=== PATIENT | female | born 1945 | race Caucasian/White ===

== ENCOUNTER 2023-12-14 15:59 | Outpatient (REF) | payer MEDICARE, SELFPAY ==
[2023-12-14 17:27] LABS: COMMENT (LAB VIEW ONLY) 93.79 mg/dL; Microalb ug/mg Crea 27.3 ug/mg Cr
[2023-12-14 18:15] LABS: Anion Gap 5.7 mmol/L (3-11); BUN 17 mg/dL (7-18); CO2 27.3 mmol/L (21.0-32.0); CREATININE 1.2 mg/dL (0.55-1.02); Calcium 8.7 mg/dL (8.5-10.1); Calculated LDL 104 mg/dL (<100); Chloride 105 mmol/L (98-107); Cholesterol 194 mg/dL (<200); Estimated GFR 46.33 (mL/min/1.73m2); Glucose 270 mg/dL (74-106); HDL Cholesterol 78 mg/dL (40-60); Magnesium 1.7 mg/dL (1.8-2.4); Potassium 4.5 mmol/L (3.5-5.1); Sodium 138 mmol/L (136-145); Triglyceride 62 mg/dL (<150)
== END 2023-12-14 16:00 | disposition home or self-care (01) ==
LOC: NCHCN 15:59
PROVIDERS: Visit Provider Student in an Organized Health Care Education/Training Program
DX: E11.9 Type 2 diabetes mellitus without complications (principal)
CPT/HCPCS: 80048; 80061; 82043; 82570; 83735

== ENCOUNTER 2023-12-21 13:36 | Emergency (ER) | payer MEDICARE, MEDICAID, SELFPAY ==
--- NOTE | 2023-12-21 13:30 | RT.EKG_ITS ---
APPROVED REPORT Exam: Resting ECG Reason for Exam: sob Patient Location: E HR:80 bpm ECG Measurements Heart Rate 80 AXIS AK 240 P [id number] QRSd 86 QRS -36 QT 401 T 42 QTc 463 Conclusion Atrial-paced complexes...other complexes also detected Prolonged AK interval...AK >220, V-rate 50- 90 Inferior infarct, old...Q >35mS, II III aVF Anterior infarct, old...Q >40mS, abnormal ST-T, V2-V5
[2023-12-21 13:37] VITALS: BP 146/34; PULSE 80; RESP 20; TEMP 36.6; O2SAT 98
[2023-12-21 13:49] VITALS: O2SAT 96
--- NOTE | 2023-12-21 14:03 | DI.RAD_ITS ---
Exam(s) XR CHEST 2V PA LATERAL EXAM: XR CHEST 2V PA LATERAL CLINICAL HISTORY: cough TECHNIQUE: 2D digital imaging was performed. Two views. COMPARISON: No exams were available for comparison FINDINGS: Exam is limited by poor pulmonary inflation and under penetration. HEART: Enlarged. Pacemaker. Aorta: Proximal aortic stent. PULMONARY VASCULATURE: Normal. MEDIASTINUM: Unremarkable. LUNGS: No gross evidence of a focal infiltrate. Pulmonary vascular prominence and increased intersti tial markings may indicate CHF. Findings may also be secondary to poor pulmonary inflation. PLEURAL SPACE: No pleural effusion or pneumothorax. BONE:Unremarkable for age. SOFT TISSUES: Unremarkable. IMPRESSION: Question CHF. DATA REPOSITORY: RADIATION DOSE DELIVERED:
--- NOTE | 2023-12-21 14:05 | ED.GENADUL_ITS ---
Discharge Plan Disposition Patient Disposition: Home Condition: Stable Discharge Details Clinical Impression: Cough, URI (upper respiratory infection), CHF (congestive heart failure) Primary Care Provider: Unknown,Unknown ED Provider: bAad Sales Home Meds and New Rx's Prescriptions: New prednisone 20 mg tablet 60 mg PO DAILY 4 Days Qty: 12 0RF levofloxacin 750 mg tablet 750 mg PO DAILY Qty: 5 0RF Continued albuterol sulfate 90 mcg/actuation HFA aerosol inhaler 2 puff inhalation Q6H PRN atorvastatin 80 mg tablet 80 mg PO DAILY duloxetine 30 mg capsule,delayed release(DR/EC) 30 mg PO DAILY Eliquis 5 mg tablet 5 mg PO BID famotidine 20 mg tablet 20 mg PO DAILY furosemide 40 mg tablet 40 mg PO DAILY glipizide 5 mg tablet 5 mg PO DAILY insulin glargine [Lantus Solostar U-100 Insulin] 100 unit/mL (3 mL) insulin pen 66 unit subcut QPM lisinopril 2.5 mg tablet 2.5 mg PO DAILY Lumigan 0.01 % drops 1 drp ophthalmic (eye) QPM metoprolol tartrate 25 mg tablet 25 mg PO BID insulin aspart U-100 [Novolog FlexPen U-100 Insulin] 100 unit/mL (3 mL) insulin pen 10 unit subcut TID Stiolto Respimat 2.5-2.5 mcg/actuation mist 2 puff inhalation DAILY trazodone 50 mg tablet 50 mg PO DAILY Discharge Instructions Additional Instructions: I would recommend increasing your Lasix to 80 mg daily for a week. Follow-up with your primary care provider within 1 week especially if symptoms continue If you feel more ill, have severe worsening shortness of breath or severe chest pain return to the emergency department for reevaluation HPI General Mode of arrival: EMS . Date/Time Provider Initiated Documentation: 12/21/23 13:53 . Limitations to Documentation: no limitations . Information obtained by: patient . History of Present Illness 78 year old F presents to the emergency department with the chief complaint of cough, described as moderate, Patient started experiencing this day(s) (3) and it has been constant. No relieving factors improve symptom(s), No exacerbating factors reported . Patient notes denies chest pain and shortness of breath. Patient did receive the following treatments prior to arrival, none Related Data Home Medications ?Medication ?Instructions ?Recorded ?Confirmed albuterol sulfate 90 mcg/actuation 2 puff inhalation Q6H PRN 12/19/23 aerosol inhaler apixaban 5 mg tablet (Eliquis) 5 mg PO BID 12/19/23 atorvastatin 80 mg tablet 80 mg PO DAILY 12/19/23 bimatoprost 0.01 % eye drops 1 drp ophthalmic (eye) QPM 12/19/23 (Magdalena) duloxetine 30 mg capsule,delayed 30 mg PO DAILY 12/19/23 release famotidine 20 mg tablet 20 mg PO DAILY 12/19/23 furosemide 40 mg tablet 40 mg PO DAILY 12/19/23 glipizide 5 mg tablet 5 mg PO DAILY 12/19/23 insulin aspart U-100 100 unit/mL 10 unit subcut TID 12/19/23 (3 mL) subcutaneous pen (Novolog FlexPen U-100 Insulin aspart) insulin glargine 100 unit/mL (3 66 unit subcut QPM 12/19/23 mL) subcutaneous pen (Lantus Solostar U-100 Insulin) lisinopril 2.5 mg tablet 2.5 mg PO DAILY 12/19/23 metoprolol tartrate 25 mg tablet 25 mg PO BID 12/19/23 tiotropium 2.5 mcg-olodaterol 2.5 2 puff inhalation DAILY 12/19/23 mcg/actuation mist for inhalation (Stiolto Respimat) trazodone 50 mg tablet 50 mg PO DAILY 12/19/23 levofloxacin 750 mg tablet 750 mg PO DAILY #5 tabs 12/21/23 prednisone 20 mg tablet 60 mg (3 x 20 mg) PO DAILY 4 days 12/21/23 #12 tabs Previous Rx's ?Medication ?Instructions ?Recorded levofloxacin 750 mg tablet 750 mg PO DAILY #5 tabs 12/21/23 prednisone 20 mg tablet 60 mg (3 x 20 mg) PO DAILY 4 days 12/21/23 #12 tabs Allergies Allergy/AdvReac Type Severity Reaction Status Date / Time gabapentin Allergy Unknown Unverified 12/21/23 13:50 pantoprazole Allergy Unknown Unverified 12/21/23 13:50 semaglutide (From Ozempic) Allergy Unknown Unverified 12/21/23 13:50 General Stated Complaint: RespSymp ZARIA: 3 Review of Systems All systems reviewed & are unremarkable except as noted in HPI and below Constitutional Constitutional: Denies chills, Denies fever(s) and Denies weakness Cardiovascular Cardiovascular: Denies chest pain Respiratory Respiratory: Reports cough Gastrointestinal Gastrointestinal: Denies abdominal pain, Denies nausea and Denies vomiting Neurologic Neurologic: Denies weakness Exam Const General: no acute distress Orientation: alert [facility] Head: normal to inspection Ears: external ears normal General nose exam: external nose normal Mouth: moist mucous membranes Eyes General: appearance normal, both eyes and all related structures Neck Neck: normal visual inspection Resp Effort & Inspection: normal respiratory effort and able to speak in complete se ntences Auscultation: wheezes Cardio Jugular venous pressure: no JVD Rate: regular rate Heart Sounds: no murmurs Skin General skin exam: no rashes or lesions noted Neuro General: patient alert and patient oriented x3 Extrem General: normal to inspection Psych Mental Status: mental status grossly normal Course Vital Signs Vital signs: Vital Signs Temperature 36.6 C 12/21/23 13:37 Pulse 80 12/21/23 13:37 Respiratory Rate 20 12/21/23 13:37 Blood Pressure 146/34 H 12/21/23 13:37 Pulse Oximetry 98 12/21/23 13:37 Temperature 36.6 C 12/21/23 13:37 Temperature Source Temporal Artery Scan 12/21/23 13:37 Pulse 80 12/21/23 13:37 Respiratory Rate 20 12/21/23 13:37 Blood Pressure 146/34 H 12/21/23 13:37 Pulse Oximetry 96 12/21/23 13:49 Oxygen Delivery Method Nasal Cannula 12/21/23 13:49 Oxygen Flow Rate 2 12/21/23 13:49 Pain Level 0 12/21/23 13:37 Medical Decision Making 78-year-old female who states she has a history of asthma and COPD comes in with 3 days of productive cough. She denies any fevers, chest pain, difficulty br eathing. She apparently went to urgent care and they noted her room air sats were in the 80s so they called EMS who gave her breathing treatment and on arrival here she states feels better. She is currently 94% on room air. She denies any chest pain or difficulty breathing. She does have wheezing in both lungs of both upper and lower lobes. She has no JVD, no leg swelling or calf tenderness. I suspect you have a COPD exacerbation first asthma exacerbation, will check CBC, CMP, Fluvid and procalcitonin and obtain chest x-ray and giveSolu-Medrol and DuoNeb and reassess.Shows no findings on exam to suggest DVT and her lung exam findings are consistent with asthma or COPD so doubt PE. She has no chest pain or chest pressure so doubt ACS Labs show increased proBNP, this is mild CHF on her x-ray and is on Lasix states she has not missed any doses. Suspect she has a mixed picture of CHF and COPD. She is hemodynamically stable when she is asleep she is a percent but when I wake her up she is in the mid to low 90s. She has no respiratory distress and lungs are clear currently. Discussed disposition options including observation admission versus trial of outpatient management but she prefers outpatient management which I feel is reasonable. Will place her on a course of prednisone and levofloxacin as well as have her increase her Lasix for a week. She will follow-up with her PCP and return precautions given Differential Diagnosis Differential Diagnosis: uri, covid, pneumonia Lab Data Lab results reviewed: Yes I reviewed the patient's lab results. ECG Data Attestation: I personally reviewed and interpreted this ECG (s) as follows: Prior ECG tracings: not available for review Interpretation: motion artifact, sinus rate of 80 no stemi Quality:SDOH Health Related Social Needs: No Data to Display PFSH All Active Problems (Updated 12/21/23 @ 15:54 by Abad Sales MD) CHF (congestive heart failure) (Chronic) URI (upper respiratory infection) (Acute) Cough (Acute) Medical History (Updated 12/21/23 @ 15:54 by Abad Sales MD) HTN (hypertension) Contusion of toe, left Dermal mycosis Thyroid nodule Diabetic peripheral neuropathy Vitamin D deficiency Hyperparathyroidism HLD (hyperlipidemia) Obesity Anemia Leukocytosis Depressive disorder GERD (gastroesophageal reflux disease) Cellulitis Stress incontinence Afib Diabetes Cardiac pacemaker in situ Anxiety Surgical History (Updated 12/19/23 @ 14:47 by Kavita Walls) S/P AVR Hx of CABG Social History Smoking risk assessment performed?: No
[2023-12-21 14:26] LABS: Abs Immature Grans 0.05 10^3/uL (0.0-0.06); Absolute Basophil Count 0.06 10^3/uL (0.0-0.2); Absolute Eosinophil Count 0.39 10^3/uL (0.0-0.7); Absolute Lymphocyte Count 2.43 10^3/uL (1.2-3.4); Basophils % 0.5 %; Eosinophils % 3.1 %; HCT 38.3 % (36.0-46.0); HGB 12.1 g/dL (11.2-15.7); Immature Grans % 0.4 %; Lymphocytes % 19.4 %; MCH 30.9 pg (27.0-33.0); MCHC 31.6 % (32.0-36.0); MCV 98 fL (80-95); MPV 12.3 fL (8.0-11.0); Monocytes % 9.3 %; Neutrophils % 67.3 %; Platelet Count 211 10^3/uL (130-400); RBC 3.92 10^6/uL (3.93-5.22); RDW 14.1 % (11.7-14.6); WBC 12.54 10^3/uL (4.4-10.8)
[2023-12-21 14:29] LABS: Absolute Monocyte Count 1.17 10^3/uL (0.1-0.8); Absolute Neutrophil Count 8.44 10^3/uL (1.2-6.7)
[2023-12-21 14:30] VITALS: RESP 5; RESP 6; RESP 8; O2SAT 89
[2023-12-21] MEDS: Albuterol/Ipratropium 3 ML UPD VIAL UPD (14:30)
[2023-12-21] MEDS: methylPREDNISolone SUCC 125 MG VIAL IVP (14:31)
[2023-12-21 14:57] LABS: COVID-19 PCR Negative (Negative); Influenza A PCR Negative (Negative); Influenza B PCR Negative (Negative); RSV PCR Negative (Negative)
[2023-12-21 14:58] LABS: Procalcitonin < 0.1 ng/mL
[2023-12-21 14:59] LABS: Source Nasopharynx
[2023-12-21 15:17] LABS: ALT 22 U/L (14-59); AST 16 U/L (15-37); Albumin 3.3 g/dL (3.4-5.0); Alkaline Phosphatase 93 U/L (46-116); Anion Gap 5.4 mmol/L (3-11); BUN 17 mg/dL (7-18); Bilirubin, Total 0.55 mg/dL (0.2-1.0); CO2 30.6 mmol/L (21.0-32.0); CREATININE 1.3 mg/dL (0.55-1.02); Calcium 9.4 mg/dL (8.5-10.1); Chloride 103 mmol/L (98-107); Estimated GFR 42.09 (mL/min/1.73m2); Glucose 301 mg/dL (74-106); Magnesium 1.6 mg/dL (1.8-2.4); NT-proBNP 1206 pg/mL (<300); Potassium 4.2 mmol/L (3.5-5.1); Sodium 139 mmol/L (136-145); TSH (W/Ref FT4) 1.83 uIU/mL (0.36-3.74); Total Protein 7.5 g/dL (6.4-8.2)
[2023-12-21] MEDS: levoFLOXacin 500 MG, levoFLOXacin 250 MG 750 MG PO (16:20)
[2023-12-21] MEDS: Furosemide 20 MG TAB 40 MG PO (16:20)
[2023-12-21 16:30] VITALS: BP 146/34; PULSE 80; RESP 20; TEMP 36.6; O2SAT 89
[2023-12-21 16:49] VITALS: BP 150/52; PULSE 82; TEMP 36; O2SAT 90
== END 2023-12-21 16:43 | disposition home or self-care (01) ==
PROVIDERS: Emergency Provider Emergency Medicine
DX: J06.9 Acute upper respiratory infection, unspecified (principal); I11.0 Hypertensive heart disease with heart failure; I50.9 Heart failure, unspecified; E11.40 Type 2 diabetes mellitus with diabetic neuropathy, unspecified; E78.5 Hyperlipidemia, unspecified; I48.91 Unspecified atrial fibrillation; R94.31 Abnormal electrocardiogram [ECG] [EKG]; Z95.0 Presence of cardiac pacemaker; Z95.1 Presence of aortocoronary bypass graft; Z79.899 Other long term (current) drug therapy
CPT/HCPCS: 36415; 80053; 84145; 87637; 93005; 94640; 96374; 99285; 71046; 83735; 83880; 84443; 85025; 93010; 99284; J2919; J7620

== ENCOUNTER → 2024-04-09 09:59 | Outpatient (BNVA) | payer MEDICARE, SELFPAY | PROVIDERS: PCP Student in an Organized Health Care Education/Training Program; Referring Provider Student in an Organized Health Care Education/Training Program; Visit Provider Physician Assistant Surgical | DX: J45.909 Unspecified asthma, uncomplicated (principal); J44.9 Chronic obstructive pulmonary disease, unspecified; R09.02 Hypoxemia | CPT/HCPCS: 99215 ==

== ENCOUNTER 2024-04-10 16:31 | Inpatient (IN) | payer MEDICARE, MEDICAID, SELFPAY ==
[2024-04-10] VITALS (66 sets, daily range): BP systolic 104–169; BP diastolic 55–156; PULSE 76–155; RESP 13–30; TEMP 36.6–36.7; O2SAT 88–97
--- NOTE | 2024-04-10 16:15 | RT.EKG_ITS ---
APPROVED REPORT Exam: Resting ECG Reason for Exam: weak, afib Patient Location: E HR:140 bpm ECG Measurements Heart Rate 140 AXIS AL [id number] P [id number] QRSd 81 QRS 45 QT 307 T 63 QTc 470 Conclusion Atrial fibrillation...? atrial activity Low voltage, precordial leads...precordial leads <1.0mV Probable anterolateral infarct, old...Q>35mS, abnrm ST-T, V2-V6,I,aVL no ST segment or T wave abnormalities to suggest occlusive MS
--- NOTE | 2024-04-10 16:45 | DI.CT_ITS ---
Exam(s) CT HEAD WO EXAM: CT HEAD WO CLINICAL HISTORY: fall 2 days ago, hit head, on AC. TECHNIQUE: Imaging Protocol: Axial computed tomography images with coronal and sagittal reformatted images were created and reviewed COMPARISON: No exams were available for comparison FINDINGS: There are no skull fractures. There are surgical defects in the medial parish of both maxillary sinuse s but no significant mucosal thickening nor fluid within the partially visualized maxillary sinuses. There is opacification of ethmoidal air cells posteriorly on the left side. Other paranasal sinuses including the frontal sinuses are clear and the mastoid air cells reveal no obvious effusions. There is no evidence of intracranial hemorrhage, mass effect, or shift of midline structures. There are no extra-axial fluid collections. The ventricles are not enlarged or shifted and there is no blo od within the ventricular system nor within the basal cisterns. There is symmetrical involutional change consistent with this patient's advanced age. IMPRESSION: No acute intracranial findings on this noninfused CT scan of the brain. Called by myself to ER 04/10/2024 at 7:15 p.m. RADIATION DOSE DELIVERED: 831.24mGy.cm Total DLP DATA REPOSITORY: All CT scans at this facility are submitted to the National Radiology Data Registry (NRDR) Dose Index Registry (DIR) with the [employer] ([employer]). RADIATION OPTIMIZATION: All CT scans at this facility use at least one of these dose optimization te chniques: automated exposure control; mA and/or kV adjustment per patient size (includes targeted exa ms where dose is matched to clinical indication); or iterative reconstruction.
--- NOTE | 2024-04-10 16:53 | DI.RAD_ITS ---
Exam(s) XR CHEST 2V PA LATERAL EXAM: XR CHEST 2V PA LATERAL CLINICAL HISTORY: SOB. TECHNIQUE: 2D digital imaging was performed. COMPARISON: CR XR CHEST 2V PA LATERAL from 12/21/2023 FINDINGS: 2 views: Bipolar left subclavian pacemaker again noted with lead tips in RA and right ventricle, unchanged There is mild cardiomegaly. The mediastinum is not widened. Pulmonary venous hypertension pattern., bordering on interstitial pulmonary edema. There is no airsp corwin pulmonary edema. Small bilateral pleural effusions evident on the lateral view. IMPRESSION: Mild cardiomegaly. Bipolar pacemaker. Pulmonary venous hypertension pattern; possible early pulmona ry edema. DATA REPOSITORY: RADIATION DOSE DELIVERED:
[2024-04-10 18:02] LABS: Lactate 1.2 mmol/L (0.6-1.4)
[2024-04-10 18:04] LABS: Abs Immature Grans 0.02 10^3/uL (0.0-0.06); Absolute Basophil Count 0.05 10^3/uL (0.0-0.2); Absolute Eosinophil Count 0.49 10^3/uL (0.0-0.7); Absolute Lymphocyte Count 2.01 10^3/uL (1.2-3.4); Absolute Monocyte Count 0.67 10^3/uL (0.1-0.8); Absolute Neutrophil Count 7.37 10^3/uL (1.2-6.7); Basophils % 0.5 %; Eosinophils % 4.6 %; HCT 32.9 % (36.0-46.0); Immature Grans % 0.2 %; Lymphocytes % 18.9 %; MCH 31.5 pg (27.0-33.0); MCHC 33.4 % (32.0-36.0); MCV 94 fL (80-95); MPV 12.2 fL (8.0-11.0); Monocytes % 6.3 %; Neutrophils % 69.5 %; Platelet Count 219 10^3/uL (130-400); RBC 3.49 10^6/uL (3.93-5.22); RDW 13.6 % (11.7-14.6); RDW-SD 46.8 fL; WBC 10.61 10^3/uL (4.4-10.8)
--- NOTE | 2024-04-10 18:25 | ED.GENADUL_ITS ---
Discharge Plan Disposition Patient Disposition: Admit to [facility] Condition: Serious Discharge Details Chief Complaint: SOB Clinical Impression: Atrial fibrillation with rapid ventricular response, New onset a-fib, CHF (congestive heart failure) Admit Date/Time: 04/10/24 22:53 Admit Provider: Abel Guillory Attending Provider: Abel Guillory Primary Care Provider: Zeus Hebert ED Provider: Lauren Baez General Mode of arrival: ambulatory . Date/Time Provider Initiated Documentation: 04/10/24 16:39 . Limitations to Documentation: no limitations . Information obtained by: patient . HPI Narrative: 78yo F with hx HTN, COPD not on oxygen, T2DM, hx AVR & CABG, presenting for generalized weakness and palpitations. Reports that for the past 2 days has had palpitations, feeling like her heart is racing. Shortness of breath seems slightly worse than normal. No chest pain or lightheadeness. Does feel generally weak. At baseline transfers to and from wheelchair, does not ambulate. Earlier this week fell when transferring, grazed her face on the chair on the way down. Denies significant head strike. Otherwise in her usual state of health with no fevers, chills, rash, cough, nausea, vomiting, abdominal pain, numbness, tingling, focal weakness, LE edema, dysuria, hematuria, or other concerns. Related Data Home Medications ?Medication ?Instructions ?Recorded ?Confirmed apixaban 5 mg tablet (Eliquis) 5 mg PO BID 12/19/23 04/10/24 atorvastatin 80 mg tablet 80 mg PO DAILY 12/19/23 04/10/24 bimatoprost 0.01 % eye drops 1 drp ophthalmic (eye) QPM 12/19/23 04/10/24 (Magdalena) duloxetine 30 mg capsule,delayed 30 mg PO DAILY 12/19/23 04/10/24 release famotidine 20 mg tablet 20 mg PO DAILY 12/19/23 04/10/24 glipizide 5 mg tablet 5 mg PO DAILY 12/19/23 04/10/24 insulin aspart U-100 100 unit/mL 10 unit subcut TID 12/19/23 04/10/24 (3 mL) subcutaneous pen (Novolog FlexPen U-100 Insulin aspart) insulin glargine 100 unit/mL (3 66 unit subcut QPM 12/19/23 04/10/24 mL) subcutaneous pen (Lantus Solostar U-100 Insulin) lisinopril 2.5 mg tablet 2.5 mg PO DAILY 12/19/23 04/10/24 metoprolol tartrate 25 mg tablet 25 mg PO BID 12/19/23 04/10/24 tiotropium 2.5 mcg-olodaterol 2.5 2 puff inhalation DAILY 12/19/23 04/10/24 mcg/actuation mist for inhalation (Stiolto Respimat) trazodone 50 mg tablet 50 mg PO DAILY 12/19/23 04/10/24 bimatoprost 0.01 % eye drops 1 drp ophthalmic (eye) QPM 02/26/24 04/10/24 (Lumigan) albuterol sulfate 90 mcg/actuation 2 puff inhalation Q6H PRN 04/09/24 04/10/24 aerosol inhaler shortness of breath or wheezing #8.5 grams furosemide 40 mg tablet 60 mg PO DAILY 04/09/24 04/10/24 sucralfate 1 gram tablet 1 g PO QID 04/09/24 04/10/24 Previous Rx's ?Medication ?Instructions ?Recorded albuterol sulfate 90 mcg/actuation 2 puff inhalation Q6H PRN 04/09/24 aerosol inhaler shortness of breath or wheezing #8.5 grams Allergies Allergy/AdvReac Type Severity Reaction Status Date / Time gabapentin Allergy Unknown Unverified 04/10/24 22:45 pantoprazole Allergy Unknown Unverified 04/10/24 22:45 semaglutide (From Ozempic) Allergy Unknown Unverified 04/10/24 22:45 General Stated Complaint: SOB ZARIA: 3 Review of Systems Narrative: see HPI Exam Narrative Exam Narrative: General: Alert, non-toxic, well nourished, in no acute distress. Head: Normocephalic, abrasion to nose otherwise atraumatic Neck: Trachea midline, ?Neck supple. ENT: ?MMM.? No oropharygeal lesions or exudate. Cardiac: ?Irregular, tachycardiac, no murmurs appreciated Resp: No respiratory distress. CTAB. Abd: ?Soft, non-distended, nontender : ?No suprapubic tenderness. Extremities: ?No deformities.? No peripheral edema. Neurologic: GCS 15. ? Moves all extremities freely against gravity Course Vital Signs Vital signs: Vital Signs Pulse Oximetry 94 04/10/24 16:35 Temperature 36.6 C 04/10/24 16:36 Pulse 76 04/10/24 16:40 Pulse 152 H 04/10/24 18:10 Respiratory Rate 27 H 04/10/24 18:10 Respiratory Effort Normal 04/10/24 18:02 Respiratory Depth Normal 04/10/24 18:02 Respiratory Pattern Normal 04/10/24 18:02 Blood Pressure 169/156 H 04/10/24 16:40 Blood Pressure Mean 159 04/10/24 16:40 Pulse Oximetry 94 04/10/24 18:10 Oxygen Delivery Method Room Air 04/10/24 18:02 Oxygen Flow Rate 0 04/10/24 18:02 Pain Level 0 04/10/24 16:36 Lab/Test Results Lab/Test Results: Laboratory Tests Range/Units 04/10/24 17:56 WBC (4.4-10.8) 10^3/uL 10.61 RBC (3.93-5.22) 10^6/uL 3.49 L Hgb (11.2-15.7) g/dL 11.0 L Hct (36.0-46.0) % 32.9 L MCV (80-95) fL 94 MCH (27.0-33.0) pg 31.5 MCHC (32.0-36.0) % 33.4 RDW (11.7-14.6) % 13.6 Plt Count (130-400) 10^3/uL 219 MPV (8.0-11.0) fL 12.2 H Immature Gran % % 0.2 Neutrophils % % 69.5 Lymphocytes % % 18.9 Monocytes % % 6.3 Eosinophils % % 4.6 Basophils % % 0.5 Nucleated RBC % (0.0-0.3) % 0.0 Absolute Neutrophils (1.2-6.7) 10^3/uL 7.37 H Absolute Lymphocytes (1.2-3.4) 10^3/uL 2.01 Absolute Monocytes (0.1-0.8) 10^3/uL 0.67 Absolute Eosinophils (0.0-0.7) 10^3/uL 0.49 Absolute Basophils (0.0-0.2) 10^3/uL 0.05 VBG Lactate (0.6-1.4) mmol/L 1.2 Medical Decision Making 78yo F with hx HTN, COPD not on oxygen, T2DM, hx AVR & CABG, presenting for generalized weakness and palpitations. Reports that for the past 2 days has had palpitations, feeling like her heart is racing and sortness of breath seems slightly worse than normal. Mildly hypertensive and tachcyardiac on arrival, afebrile with normal O2 sat. Irregular HR on exam, lungs CTAB with no increased WOB but is dyspneic with minimal exertion (i.e. sitting up in bed). -EKG with new onset afib rate ~140, no ST segment or T wave abnormalities to suggest occlusive AL -Labs reviewed as below, CBC with no leukocytosis and mild anemia (11.0), CMP with no actionable abnormalities (cr is elevated at 1.8 from baseline ~1.3), Mg slightly low at 1.7, TSH normal, troponin 18 with repeat 13 (normal, would not further pursue ACS), BNP markedly elevated at ~8000. Dimer elevated so CTA for PE ordered (less likely given pt is currently on apixiban) -CXR independently reviewed, pacemaker present and pulmonary edema on view, agree with radiology read below. -CTA independently reviewed, no large saddle embolius on my view, agree with radiology read below. No clear provoking factor for afib and does not appear to be compensatory process. Pt denies prior CHF, no echo available here for review (did have ED visit for SOB and found to have elevated BNP, suspect HF at that time). Favor CHF today, less likely COPD excerbation. Will diurese with 40mg IV lasix, pt with ~2L urine out with this. Attempted rate control with 50mg po metoprolol (pt states 25mg BID at home) without much improvement. Given 5mg IV lopressor with improvement in HR to 110's. Discuss[address] with [facility] hospitalist Dr. Guillory; pt accepted to medicine service for further workup and management. Awaiting transfer to the floor. Imaging Data Radiologic Study: Imaging: X-Ray and CT Scan Radiologist's impression: CXR: IMPRESSION: Mild cardiomegaly. Bipolar pacemaker. Pulmonary venous hypertension pattern; possible early pulmonary edema. CTA chest: IMPRESSION: Cardiomegaly and CHF with small effusions. No pulmonary embolus. Lab Data Lab results reviewed: Yes I reviewed the patient's lab results. Labs: Laboratory Tests Range/Units 04/10/24 04/10/24 04/10/24 17:56 19:27 19:54 WBC (4.4-10.8) 10^3/uL 10.61 RBC (3.93-5.22) 10^6/uL 3.49 L Hgb (11.2-15.7) g/dL 11.0 L Hct (36.0-46.0) % 32.9 L MCV (80-95) fL 94 MCH (27.0-33.0) pg 31.5 MCHC (32.0-36.0) % 33.4 RDW (11.7-14.6) % 13.6 Plt Count (130-400) 10^3/uL 219 MPV (8.0-11.0) fL 12.2 H Immature Gran % % 0.2 Neutrophils % % 69.5 Lymphocytes % % 18.9 Monocytes % % 6.3 Eosinophils % % 4.6 Basophils % % 0.5 Nucleated RBC % (0.0-0.3) % 0.0 Absolute Neutrophils (1.2-6.7) 10^3/uL 7.37 H Absolute Lymphocytes (1.2-3.4) 10^3/uL 2.01 Absolute Monocytes (0.1-0.8) 10^3/uL 0.67 Absolute Eosinophils (0.0-0.7) 10^3/uL 0.49 Absolute Basophils (0.0-0.2) 10^3/uL 0.05 PT (9.1-11.1) sec 11.3 H INR (0.9-1.1) 1.1 APTT (23.6-32.8) sec 27.8 D-Dimer (<500) ng/mlFEU 1758 H VBG Lactate (0.6-1.4) mmol/L 1.2 Sodium (136-145) mmol/L 137 Potassium (3.5-5.1) mmol/L 3.6 Chloride (98-107) mmol/L 98 Carbon Dioxide (21.0-32.0) mmol/L 29.0 Anion Gap (3-11) mmol/L 10.0 BUN (7-18) mg/dL 52 H Creatinine (0.55-1.02) mg/dL 1.8 H Est GFR (CKD-EPI 2020) (mL/min/1.73m2) 28.48 Glucose (74-106) mg/dL 157 H Calcium (8.5-10.1) mg/dL 8.8 Magnesium (1.8-2.4) mg/dL 1.7 L Total Bilirubin (0.2-1.0) mg/dL 0.78 AST (15-37) U/L 21 ALT (14-59) U/L 33 Alkaline Phosphatase (46-116) U/L 131 H Troponin I (<or=51) ng/L 18 13 Cancelled NT-Pro-B Natriuret Pep (<300) pg/mL 7834 H Total Protein (6.4-8.2) g/dL 7.6 Albumin (3.4-5.0) g/dL 3.0 L TSH (0.36-3.74) uIU/mL 2.57 COVID-19 Source SARS-CoV-2 (PCR) (Negative) Influenza Type A (PCR) (Negative) Influenza Type B (PCR) (Negative) RSV (PCR) (Negative) Range/Units 04/10/24 21:33 WBC (4.4-10.8) 10^3/uL RBC (3.93-5.22) 10^6/uL Hgb (11.2-15.7) g/dL Hct (36.0-46.0) % MCV (80-95) fL MCH (27.0-33.0) pg MCHC (32.0-36.0) % RDW (11.7-14.6) % Plt Count (130-400) 10^3/uL MPV (8.0-11.0) fL Immature Gran % % Neutrophils % % Lymphocytes % % Monocytes % % Eosinophils % % Basophils % % Nucleated RBC % (0.0-0.3) % Absolute Neutrophils (1.2-6.7) 10^3/uL Absolute Lymphocytes (1.2-3.4) 10^3/uL Absolute Monocytes (0.1-0.8) 10^3/uL Absolute Eosinophils (0.0-0.7) 10^3/uL Absolute Basophils (0.0-0.2) 10^3/uL PT (9.1-11.1) sec INR (0.9-1.1) APTT (23.6-32.8) sec D-Dimer (<500) ng/mlFEU VBG Lactate (0.6-1.4) mmol/L Sodium (136-145) mmol/L Potassium (3.5-5.1) mmol/L Chloride (98-107) mmol/L Carbon Dioxide (21.0-32.0) mmol/L Anion Gap (3-11) mmol/L BUN (7-18) mg/dL Creatinine (0.55-1.02) mg/dL Est GFR (CKD-EPI 2020) (mL/min/1.73m2) Glucose (74-106) mg/dL Calcium (8.5-10.1) mg/dL Magnesium (1.8-2.4) mg/dL Total Bilirubin (0.2-1.0) mg/dL AST (15-37) U/L ALT (14-59) U/L Alkaline Phosphatase (46-116) U/L Troponin I (<or=51) ng/L NT-Pro-B Natriuret Pep (<300) pg/mL Total Protein (6.4-8.2) g/dL Albumin (3.4-5.0) g/dL TSH (0.36-3.74) uIU/mL COVID-19 Source Nasopharynx SARS-CoV-2 (PCR) (Negative) Negative Influenza Type A (PCR) (Negative) Negative Influenza Type B (PCR) (Negative) Negative RSV (PCR) (Negative) Negative Quality:SDOH Health Related Social Needs: No Data to Display PFSH All Active Problems (Updated 04/10/24 @ 23:37 by Lauren Baez MD) CHF (congestive heart failure) (Chronic) New onset a-fib (Acute) Atrial fibrillation with rapid ventricular response (Acute) COPD (chronic obstructive pulmonary disease) (Chronic) Type 2 diabetes mellitus without complications (Acute) Hypoxia (Acute) Chronic obstructive pulmonary disease with (acute) exacerbation (Acute) Medical History (Updated 04/10/24 @ 23:37 by Lauren Baez MD) Loose left total knee arthroplasty HTN (hypertension) Contusion of toe, left Dermal mycosis Thyroid nodule Diabetic peripheral neuropathy Vitamin D deficiency Hyperparathyroidism HLD (hyperlipidemia) Obesity Anemia Leukocytosis Depressive disorder GERD (gastroesophageal reflux disease) Cellulitis Stress incontinence Afib Diabetes Cardiac pacemaker in situ Anxiety Surgical History (Updated 02/26/24 @ 08:56 by Radha Bauman RN, RN) S/P AVR replaced with bovine valve Hx of CABG Family History (Updated 02/26/24 @ 08:57 by Radha Bauman RN, RN) Father Bone cancer Mother Myocardial infarction Brother Myocardial infarction Social History (Updated 01/08/24 @ 11:45 by Camille De Souza) Smoking/Tobacco Use Status: Former Tobacco Use Smoking risk assessment performed?: Yes
[2024-04-10 18:29] LABS: TSH (W/Ref FT4) 2.57 uIU/mL (0.36-3.74)
[2024-04-10 18:34] LABS: INR 1.1 (0.9-1.1); PTT Activated 27.8 sec (23.6-32.8); Prothrombin Time 11.3 sec (9.1-11.1)
[2024-04-10 18:42] LABS: ALT 33 U/L (14-59); AST 21 U/L (15-37); Alkaline Phosphatase 131 U/L (46-116); BUN 52 mg/dL (7-18); Bilirubin, Total 0.78 mg/dL (0.2-1.0); CREATININE 1.8 mg/dL (0.55-1.02); Calcium 8.8 mg/dL (8.5-10.1); Chloride 98 mmol/L (98-107); Estimated GFR 28.48 (mL/min/1.73m2); Glucose 157 mg/dL (74-106); Magnesium 1.7 mg/dL (1.8-2.4); NT-proBNP 7834 pg/mL (<300); Potassium 3.6 mmol/L (3.5-5.1); Sodium 137 mmol/L (136-145); Total Protein 7.6 g/dL (6.4-8.2); Troponin I 18 ng/L (<or=51)
[2024-04-10] MEDS: Metoprolol 50 MG TAB PO (19:12)
[2024-04-10] MEDS: Furosemide 40 MG/4 ML VIAL IVP (19:22)
[2024-04-10 19:34] LABS: D-Dimer 1758 ng/mlFEU (<500)
--- NOTE | 2024-04-10 19:41 | DI.CT_ITS ---
Exam(s) CT CHEST PE CTA EXAM: CT CHEST PE CTA CLINICAL HISTORY: tachycardiac, elevated dimer. TECHNIQUE: Imaging Protocol: Axial CT angiography was performed with multi-slice acquisition and mu lti-planar and/or 3D reconstructions. Lung Computer Aided Detection (CAD) was utilized. CONTRAST MATERIAL: Intravenous: Omnipaque 350 contrast volume:100 mL COMPARISON: CR XR CHEST 2V PA LATERAL from 04/10/2024 FINDINGS: The examination is limited due to patient motion artifact. Tracheobronchial tree: Patent where visualized. No bronchiectasis. Pulmonary parenchyma: There are low lung volumes and atelectasis is present. There are small bilater al pleural effusions with subjacent infiltrates which may represent atelectasis or pneumonia. No arc hitectural distortion. Pulmonary Arteries: No evidence of filling defect to suggest pulmonary emboli. Mediastinum and Ynes: Nonspecific enlarged lymph nodes are seen in the mediastinum and right hilum. The esophagus is unremarkable. Visualized thyroid gland: Unremarkable. Pleura: There is no pneumothorax. Heart: Cardiomegaly. There is an aortic valve replacement. Three vessel coronary artery calcificati on is present. No pericardial effusion. Aorta: Thoracic aorta non-dilated. Atherosclerotic calcification is present. The bolus was timed for maximum pulmonary artery opacification limiting evaluation of the thoracic aorta. Upper abdomen: Examination of upper abdomen is limited by poor contrast opacification. Status post cholecystectomy. Tubes, Catheters, and Lines: There is a cardiac pacing device in place. Soft tissues: Unremarkable. Bones: Within normal limits for the patient's age. IMPRESSION: 1. No evidence of a pulmonary embolism or thoracic aortic aneurysm. 2. Small bilateral pleural effusions and subjacent infiltrates which may represent atelectasis or pne umonia. 3. Nonspecific enlarged lymph nodes in the mediastinum and right hilum. These may be reactive. 4. Cardiomegaly. This in conjunction with the effusions may reflect congestive heart failure. Pleas e correlate clinically. 5. Coronary artery calcification and atherosclerotic calcification is seen. RADIATION DOSE DELIVERED: 128.78mGy.cm Total DLP DATA REPOSITORY: All CT scans at this facility are submitted to the National Radiology Data Registry (NRDR) Dose Index Registry (DIR) with the [employer] (ACR). RADIATION OPTIMIZATION: All CT scans at this facility use at least one of these dose optimization te chniques: automated exposure control; mA and/or kV adjustment per patient size (includes targeted exa ms where dose is matched to clinical indication); or iterative reconstruction.
[2024-04-10] MEDS: Omnipaque 350 MG/ML 100 ML BTL IJ (19:53)
[2024-04-10] MEDS: Normal Saline - Diluent 50 ML VIAL IJ (19:55)
[2024-04-10 19:56] LABS: Troponin I 13 ng/L (<or=51)
--- NOTE | 2024-04-10 20:45 | DI.VRAD_ITS ---
PROCEDURE INFORMATION: Exam: CTA Chest With Contrast Exam date and time: 04/10/2024 7:52 PM Age: 78 years old Clinical indication: Other: Tachycardiac, elevated dimer TECHNIQUE: Imaging protocol: Computed tomographic angiography of the chest with contrast. Exam focused on the arteries. 3D rendering (Not supervised by radiologist): MIP and/or 3D reconstructed images were created by the technologist. Contrast material: OMNI 350; Contrast volume: 100 ml; Contrast route: INTRAVENOUS (IV); COMPARISON: CR XR CHEST 2V PA LATERAL 04/10/2024 6:49 PM FINDINGS: Tubes, catheters and devices: Left subclavian cardiac pacemaker. Aortic valve prosthesis. Pulmonary arteries: Normal. No pulmonary emboli. Aorta: Unremarkable. No aortic aneurysm. No aortic dissection. Lungs: Lungs show diffuse ground-glass opacities with a perihilar distribution. No focal airspace consolidation. Pleural spaces: Small bilateral pleural effusions. Heart: Cardiomegaly Coronary arteries: Heavy coronary artery calcification. Lymph nodes: Mediastinal lymph nodes measuring up to about 2 cm. Mildly prominent hilar nodes as well. Bones/joints: Unremarkable. No acute fracture. Soft tissues: Unremarkable. IMPRESSION: Cardiomegaly and CHF with small effusions. No pulmonary embolus. Dictated and Authenticated by: Mello Pruett MD. Ordering:BABY Aguilar MD
[2024-04-10] MEDS: Metoprolol 5 MG/5 ML VIAL IVP ×2 (21:22→23:50)
[2024-04-10 22:13] LABS: COVID-19 PCR Negative (Negative); Influenza A PCR Negative (Negative); Influenza B PCR Negative (Negative); RSV PCR Negative (Negative)
[2024-04-10 22:14] LABS: Source Nasopharynx
--- NOTE | 2024-04-10 22:14 | HPE_ITS ---
Date of service: 04/10/24 Time of Service: 22:15 Assessment and Plan Assessment and plan (1) CHF (congestive heart failure): Status: Chronic Assessment and plan: Pt without formal CHF diagnosis, but BNP almost 8,000 (with prior test of 3,000 in addition). In context of past AZ, CABG, AVR, pacer. Given 40mg IV lasix in ED with 2L out. Hypotensive overnight. Will place Johnson for accurate Is & Os (pt with wick, but not collecting correctly upon arrival to the floor). Negative serial troponins. Will check echo in the morning. Need to interrogate pacer as it does not seem to be firing correctly. (2) Atrial fibrillation with rapid ventricular response: Status: Acute Assessment and plan: Not a new diagnosis for the patient. She is already on apixaban (but has history of AVR, which patient thought was for A-fib). Been hypotensive with RVR, so unable to increase metoprolol. Will transfer to the ICU for closer monitoring. Would recommend considering Digoxin. (3) COPD (chronic obstructive pulmonary disease): Status: Chronic Assessment and plan: Prn Xopenex. Believe SOB is primarily related to afib with RVR at this point, but could consider COPD exacerbation treatment if pt does not improved with RVR control. (4) Type 2 diabetes mellitus without complications: Status: Acute Assessment and plan: Continue current home oral regimen & insulin. Ordered FSBS ACHS. Consider sliding scale insulin. History of Present Illness Narrative: 78-year-old white female with a PMH that includes COPD (not on oxygen), DM2 (with peripheral neuropathy), h/o CABG & AVR & pacemaker, afib (on apixaban), elevated BNP (without formal CHF diagnosis), HLD, increased BMI, anemia, depression, anxiety, GERD, hyperparathyroidism, who presents with chief complaint of generalized weakness and shortness of breath. Patient reports 2 days of generalized weakness, shortness of breath associated with feeling like her heart is racing. Has some baseline shortness of breath, but it has worsened more than normal. Denies any chest pain or dizziness. At baseline, patient is nonambulatory, transferring to and from wheelchair. She reports falling earlier this week when transferring, grazing her face on a chair as she fell. Denies significant head injury or loss of consciousness. Denies any aggravating or alleviating factors. Denies other associations. Denies any other specific medical complaints at this time. In our emergency room, patient was found to have new atrial fibrillation with a rate in the 130s to 150s that went down to the 110s after a p.o. dose of 50 mg of metoprolol followed by a 5 mg dose of IV Lopressor. Workup for PE was negative. No sepsis or anemia appreciated. Slight pulmonary edema on chest x- ray and was given 40 mg of Lasix IV. Troponins were flat at 18 and 13. BNP was 7000 (up from 3000 last visit). Recommend admission for morning echo and rate control overnight. Had dyspnea on exertion with oxygen saturation decreased to 89% in the emergency room. From ED Records: -EKG with new onset afib rate ~140, no ST segment or T wave abnormalities to suggest occlusive AZ -Labs reviewed as below, CBC with no leukocytosis and mild anemia (11.0), CMP with no actionable abnormalities (cr is elevated at 1.8 from baseline ~1.3), Mg slightly low at 1.7, TSH normal, troponin 18 with repeat 13 (normal, would not further pursue ACS), BNP markedly elevated at ~8000. Dimer elevated so CTA for PE ordered (less likely given pt is currently on apixiban) -CXR independently reviewed, pacemaker present and pulmonary edema on view, agree with radiology read below. -CTA independently reviewed, no large saddle embolius on my view, agree with radiology read below. No clear provoking factor for afib and does not appear to be compensatory process. Pt denies prior CHF, no echo available here for review (did have ED visit for SOB and found to have elevated BNP, suspect HF at that time). Favor CHF today, less likely COPD excerbation. Given 40mg IV lasix, pt with ~2L urine out with this. Attempted rate control with 50mg po metoprolol (pt states 25mg BID at home) without much improvement. Given 5mg IV lopressor with improvement in HR to 110's. Pt clearly articulated her DNR/DNI wishes to me. Review of Systems Narrative: Review of Systems See also HPI above. Const: Positive for chills. Negative for fever. HENT: Negative for acute hearing changes. Eyes: Positive for acute visual disturbance- worsening vision over the past months (new). Resp: Negative for shortness of breath. CV: Negative for chest pain. Abd: Negative for abdominal pain. GI: Positive for bowel changes.- constipation. : Negative for changes in urination. MSK: Negative for focal weakness. Skin: Negative for rash. Neuro: Negative for numbness. Heme: Positive for leg edema. PFSH All Active Problems (Updated 04/11/24 @ 04:11 by Abel Guillory MD) CHF (congestive heart failure) (Chronic) New onset a-fib (Acute) Atrial fibrillation with rapid ventricular response (Acute) COPD (chronic obstructive pulmonary disease) (Chronic) Type 2 diabetes mellitus without complications (Acute) Hypoxia (Acute) Chronic obstructive pulmonary disease with (acute) exacerbation (Acute) Medical History Loose left total knee arthroplasty HTN (hypertension) Contusion of toe, left Dermal mycosis Thyroid nodule Diabetic peripheral neuropathy Vitamin D deficiency Hyperparathyroidism HLD (hyperlipidemia) Obesity Anemia Leukocytosis Depressive disorder GERD (gastroesophageal reflux disease) Cellulitis Stress incontinence Afib Diabetes Cardiac pacemaker in situ Anxiety Surgical History S/P AVR replaced with bovine valve Hx of CABG Family History Father Bone cancer Mother Myocardial infarction Brother Myocardial infarction Social History Smoking/Tobacco Use Status: Former Tobacco Use Smoking risk assessment performed?: Yes Housing: apartment Meds Allergies and Home Medications Allergies Allergy/AdvReac Type Severity Reaction Status Date / Time gabapentin Allergy Unknown Unverified 04/10/24 22:45 pantoprazole Allergy Unknown Unverified 04/10/24 22:45 semaglutide (From Ozempic) Allergy Unknown Unverified 04/10/24 22:45 Home Medications ?Medication ?Instructions ?Recorded ?Confirmed ?Type apixaban 5 mg tablet (Eliquis) 5 mg PO BID 12/19/23 04/10/24 History atorvastatin 80 mg tablet 80 mg PO DAILY 12/19/23 04/10/24 History bimatoprost 0.01 % eye drops 1 drp ophthalmic (eye) QPM 12/19/23 04/10/24 History ([place]) duloxetine 30 mg capsule,delayed 30 mg PO DAILY 12/19/23 04/10/24 History release famotidine 20 mg tablet 20 mg PO DAILY 12/19/23 04/10/24 History glipizide 5 mg tablet 5 mg PO DAILY 12/19/23 04/10/24 History insulin aspart U-100 100 unit/mL 10 unit subcut TID 12/19/23 04/10/24 History (3 mL) subcutaneous pen (Novolog FlexPen U-100 Insulin aspart) insulin glargine 100 unit/mL (3 66 unit subcut QPM 12/19/23 04/10/24 History mL) subcutaneous pen (Lantus Solostar U-100 Insulin) lisinopril 2.5 mg tablet 2.5 mg PO DAILY 12/19/23 04/10/24 History metoprolol tartrate 25 mg tablet 25 mg PO BID 12/19/23 04/10/24 History tiotropium 2.5 mcg-olodaterol 2.5 2 puff inhalation DAILY 12/19/23 04/10/24 History mcg/actuation mist for inhalation (Stiolto Respimat) trazodone 50 mg tablet 50 mg PO DAILY 12/19/23 04/10/24 History bimatoprost 0.01 % eye drops 1 drp ophthalmic (eye) QPM 02/26/24 04/10/24 History ([place]) albuterol sulfate 90 mcg/actuation 2 puff inhalation Q6H PRN 04/09/24 04/10/24 Rx aerosol inhaler shortness of breath or wheezing #8.5 grams furosemide 40 mg tablet 60 mg PO DAILY 04/09/24 04/10/24 History sucralfate 1 gram tablet 1 g PO QID 04/09/24 04/10/24 History Exam Narrative Exam Narrative: Constitutional: NAD. Increased BMI. Head/Face: NCAT. Eyes: PERRL. Nl appearing eyes. ENT: Nl appearing external ears, nose, and oropharynx. No exudates. Uvula mid- line. Slightly dry mucous membranes. Neck: Supple, non-tender to palpation. No obvious mass. Chest: Chest wall non-tender to palpation. Resp: CTAB. Equal BS. No wheezes, rhonchi, crackles, rales. CV: RRR. No rubs, or gallops. Abd/GI: Soft, mild point tenderness in left mid abd (pt didn't know was there until palpation). No rebound, guarding, rigidity. No organomegaly or masses palpated. Back/: No spinal tenderness. No CVA tenderness. Skin: Warm & dry. No clinically significant rash noted on exposed skin. MSK/Ext: TALLEY. Non-tender. 5/5 motor in all ext bilaterally. Heme/Lymph: 2+ leg edema. Neuro: A&O x4. Nl speech. Sensory & Motor grossly intact. Capacity intact. Appropriate judgment. Psych: Appropriate mood, manner, and affect. SIRS Screen: Positive SIRS Criteria (at least 2 of the following): Temp (+ mode) (>101 (38.3), <96.8 (36))- Negative Pulse (>90/min)- Positive (RVR) (or) Resp (>20/min)- Positive (SOB with RVR) (or) WBC (>12K, <4K) or Bandemia (>10%)- Negative Source of Infection?: No. Antibiotics Indicated?: No. Results Imaging Chest x-ray: image reviewed ([place] edema with question of infiltrate on right.) EKG: image reviewed (afib with RVR) Labs 04/10/24 17:56 04/10/24 17:56 Labs: Laboratory Results - last 24 hr 04/10/24 04/10/24 04/10/24 17:56 19:27 19:54 WBC 10.61 RBC 3.49 L Hgb 11.0 L Hct 32.9 L MCV 94 MCH 31.5 MCHC 33.4 RDW 13.6 Plt Count 219 MPV 12.2 H Immature Gran % 0.2 Neutrophils % 69.5 Lymphocytes % 18.9 Monocytes % 6.3 Eosinophils % 4.6 Basophils % 0.5 Nucleated RBC % 0.0 Absolute Neutrophils 7.37 H Absolute Lymphocytes 2.01 Absolute Monocytes 0.67 Absolute Eosinophils 0.49 Absolute Basophils 0.05 PT 11.3 H INR 1.1 APTT 27.8 D-Dimer 1758 H VBG Lactate 1.2 Sodium 137 Potassium 3.6 Chloride 98 Carbon Dioxide 29.0 Anion Gap 10.0 BUN 52 H Creatinine 1.8 H Est GFR (CKD-EPI 2020) 28.48 Glucose 157 H Calcium 8.8 Magnesium 1.7 L Total Bilirubin 0.78 AST 21 ALT 33 Alkaline Phosphatase 131 H Troponin I 18 13 Cancelled NT-Pro-B Natriuret Pep 7834 H Total Protein 7.6 Albumin 3.0 L TSH 2.57 COVID-19 Source SARS-CoV-2 (PCR) Influenza Type A (PCR) Influenza Type B (PCR) RSV (PCR) 04/10/24 21:33 WBC RBC Hgb Hct MCV MCH MCHC RDW Plt Count MPV Immature Gran % Neutrophils % Lymphocytes % Monocytes % Eosinophils % Basophils % Nucleated RBC % Absolute Neutrophils Absolute Lymphocytes Absolute Monocytes Absolute Eosinophils Absolute Basophils PT INR APTT D-Dimer VBG Lactate Sodium Potassium Chloride Carbon Dioxide Anion Gap BUN Creatinine Est GFR (CKD-EPI 2020) Glucose Calcium Magnesium Total Bilirubin AST ALT Alkaline Phosphatase Troponin I NT-Pro-B Natriuret Pep Total Protein Albumin TSH COVID-19 Source Nasopharynx SARS-CoV-2 (PCR) Negative Influenza Type A (PCR) Negative Influenza Type B (PCR) Negative RSV (PCR) Negative Last Vital Signs Temp 36.6 C 04/10/24 16:36 Pulse 107 H 04/10/24 21:45 Resp 21 04/10/24 21:45 BP 104/56 L 04/10/24 21:51 Pulse Ox 93 04/10/24 21:45 Time Spent Time spent with Patient: >75 minutes Time was spent: preparing to see the patient(eg.review tests), obtaining and/or reviewing separately otained hiistory, ordering medications,tests, procedures, referring, communicating with other health intensive care medicine specialist, indepentently interpreting results, counseling the patient, care coordination and other
--- NOTE | 2024-04-10 23:13 | W.PC.ACHO ---
Registration Status: Primary Language: Preferred Language: ED Information & Data Chief Complaint SOB 04/10/24 18:25 Triage Note 2 days ago, weakness, sob, 04/10/24 16:36 coughing, fell2 days ago and hit face on ground Medical / Surgical History (Last Updated 02/26/24 @ 08:56 by Radha Bauman RN, RN) Loose left total knee arthroplasty HTN (hypertension) Contusion of toe, left Dermal mycosis Thyroid nodule Diabetic peripheral neuropathy Vitamin D deficiency Hyperparathyroidism HLD (hyperlipidemia) Obesity Anemia Leukocytosis Depressive disorder GERD (gastroesophageal reflux disease) Cellulitis Stress incontinence Afib Diabetes Cardiac pacemaker in situ Anxiety (Last Updated 02/26/24 @ 08:56 by Radha Bauman RN, RN) S/P AVR Hx of CABG Most Recent Vital Signs Temperature 36.6 C 04/10/24 16:36 Pulse 107 H 04/10/24 21:45 Pulse 127 H 04/10/24 22:30 Respiratory Rate 21 04/10/24 22:30 Respiratory Effort Normal 04/10/24 18:02 Respiratory Depth Normal 04/10/24 18:02 Respiratory Pattern Normal 04/10/24 18:02 Blood Pressure 104/56 L 04/10/24 21:51 Blood Pressure Mean 63 04/10/24 21:45 Pulse Oximetry 90 L 04/10/24 22:30 Oxygen Delivery Method Room Air 04/10/24 18:02 Oxygen Flow Rate 0 04/10/24 18:02 Pain Level 0 04/10/24 21:51 Allergies gabapentin Allergy (Unverified 04/10/24 22:45) Unknown pantoprazole Allergy (Unverified 04/10/24 22:45) Unknown semaglutide (From Ozempic) Allergy (Unverified 04/10/24 22:45) Unknown Active Medications Generic Name Dose Route Start Last Admin Trade Name Freq PRN Reason Stop Dose Admin Iohexol 100 ml 04/10/24 20:00 04/10/24 19:53 Omnipaque 350 Mg/Ml 100 Ml Btl IJ 05/10/24 23:59 100 ml DIRECTED RONALD Administration Sodium Chloride 50 ml 04/10/24 20:00 04/10/24 19:55 Normal Saline - Diluent 50 Ml Vial IJ 50 ml .FOR DI USE RONALD Administration IV IV Catheter Type [Right Hand] Saline Lock IV Catheter Gauge [Right Hand] 18 Diagnostics 04/10/24 04/10/24 04/10/24 Range/Units 21:33 19:54 19:27 WBC (4.4-10.8) 10^3/uL RBC (3.93-5.22) 10^6/uL Hgb (11.2-15.7) g/dL Hct (36.0-46.0) % MCV (80-95) fL MCH (27.0-33.0) pg MCHC (32.0-36.0) % RDW (11.7-14.6) % Plt Count (130-400) 10^3/uL MPV (8.0-11.0) fL Immature Gran % % Neutrophils % % Lymphocytes % % Monocytes % % Eosinophils % % Basophils % % Nucleated RBC % (0.0-0.3) % Absolute Neutrophils (1.2-6.7) 10^3/uL Absolute Lymphocytes (1.2-3.4) 10^3/uL Absolute Monocytes (0.1-0.8) 10^3/uL Absolute Eosinophils (0.0-0.7) 10^3/uL Absolute Basophils (0.0-0.2) 10^3/uL PT (9.1-11.1) sec INR (0.9-1.1) APTT (23.6-32.8) sec D-Dimer (<500) ng/mlFEU VBG Lactate (0.6-1.4) mmol/L Sodium (136-145) mmol/L Potassium (3.5-5.1) mmol/L Chloride (98-107) mmol/L Carbon Dioxide (21.0-32.0) mmol/L Anion Gap (3-11) mmol/L BUN (7-18) mg/dL Creatinine (0.55-1.02) mg/dL Est GFR (CKD-EPI 2020) (mL/min/1.73m2) Glucose (74-106) mg/dL Calcium (8.5-10.1) mg/dL Magnesium (1.8-2.4) mg/dL Total Bilirubin (0.2-1.0) mg/dL AST (15-37) U/L ALT (14-59) U/L Alkaline Phosphatase (46-116) U/L Troponin I Cancelled 13 (<or=51) ng/L NT-Pro-B Natriuret Pep (<300) pg/mL Total Protein (6.4-8.2) g/dL Albumin (3.4-5.0) g/dL TSH (0.36-3.74) uIU/mL COVID-19 Source Nasopharynx SARS-CoV-2 (PCR) Negative (Negative) Influenza Type A (PCR) Negative (Negative) Influenza Type B (PCR) Negative (Negative) RSV (PCR) Negative (Negative) 04/10/24 Range/Units 17:56 WBC 10.61 (4.4-10.8) 10^3/uL RBC 3.49 L (3.93-5.22) 10^6/uL Hgb 11.0 L (11.2-15.7) g/dL Hct 32.9 L (36.0-46.0) % MCV 94 (80-95) fL MCH 31.5 (27.0-33.0) pg MCHC 33.4 (32.0-36.0) % RDW 13.6 (11.7-14.6) % Plt Count 219 (130-400) 10^3/uL MPV 12.2 H (8.0-11.0) fL Immature Gran % 0.2 % Neutrophils % 69.5 % Lymphocytes % 18.9 % Monocytes % 6.3 % Eosinophils % 4.6 % Basophils % 0.5 % Nucleated RBC % 0.0 (0.0-0.3) % Absolute Neutrophils 7.37 H (1.2-6.7) 10^3/uL Absolute Lymphocytes 2.01 (1.2-3.4) 10^3/uL Absolute Monocytes 0.67 (0.1-0.8) 10^3/uL Absolute Eosinophils 0.49 (0.0-0.7) 10^3/uL Absolute Basophils 0.05 (0.0-0.2) 10^3/uL PT 11.3 H (9.1-11.1) sec INR 1.1 (0.9-1.1) APTT 27.8 (23.6-32.8) sec D-Dimer 1758 H (<500) ng/mlFEU VBG Lactate 1.2 (0.6-1.4) mmol/L Sodium 137 (136-145) mmol/L Potassium 3.6 (3.5-5.1) mmol/L Chloride 98 (98-107) mmol/L Carbon Dioxide 29.0 (21.0-32.0) mmol/L Anion Gap 10.0 (3-11) mmol/L BUN 52 H (7-18) mg/dL Creatinine 1.8 H (0.55-1.02) mg/dL Est GFR (CKD-EPI 2020) 28.48 (mL/min/1.73m2) Glucose 157 H (74-106) mg/dL Calcium 8.8 (8.5-10.1) mg/dL Magnesium 1.7 L (1.8-2.4) mg/dL Total Bilirubin 0.78 (0.2-1.0) mg/dL AST 21 (15-37) U/L ALT 33 (14-59) U/L Alkaline Phosphatase 131 H (46-116) U/L Troponin I 18 (<or=51) ng/L NT-Pro-B Natriuret Pep 7834 H (<300) pg/mL Total Protein 7.6 (6.4-8.2) g/dL Albumin 3.0 L (3.4-5.0) g/dL TSH 2.57 (0.36-3.74) uIU/mL COVID-19 Source SARS-CoV-2 (PCR) (Negative) Influenza Type A (PCR) (Negative) Influenza Type B (PCR) (Negative) RSV (PCR) (Negative) Intake and Output - 24 Hour Total 04/10/24 16:24 thru 04/10/24 22:40 Output Total 2100 Balance -2100 Weight 106 kg Output: Urine 2100 Falls Risk Assessment History of Falls No History 04/10/24 18:02 Ambulatory Aids Independent 04/10/24 18:02 Tubes/Lines None 04/10/24 18:02 Gait Evaluation No gait disturbance 04/10/24 18:02 Cognition No cognitive impairment 04/10/24 18:02 Fall Total Score 0 04/10/24 18:02 Level of Risk Standard/Low Risk 04/10/24 18:02 v v v v v v v v v Sending and/or Receiving Nurses: Please use comment section below to note any information pertinent to the patient hand-off not included above. Information / Comments: From home, came in in afib, SOB x2 days. WC bound at home. Given metop still 117bpm. Decreased sats in to 80s on ambulation. Given lasix 1999 urine out using purewick. 18g in L AC, 20g in R AC. A+Ox3. 104/56, RR 20, afebrile, 92% on RA at rest. CBC and white count unremarkable. BNP 7834, CR and BNP elevated. Resp panel - Report received from: Ap NOVAK RN called at [id number]
[2024-04-11] VITALS (136 sets, daily range): BP systolic 84–123; BP diastolic 30–91; PULSE 79–158; RESP 13–40; TEMP 36.6–37.1; O2SAT 85–99
--- NOTE | 2024-04-11 03:32 | NUR.NOTE ---
Nursing Note: At 0155 Dr. Guillory up to assess pt. At this time pt HR still irregular and tachy as seen on tele. BP still soft see VS notes. Unable to give ordered PO metoprolol due to parameters. Decision was made to transfer pt to ICU. Report given to [facility] nurse and pt transferred w/ all belongings.
[2024-04-11 06:14] LABS: HCT 30.8 % (36.0-46.0); HGB 10.3 g/dL (11.2-15.7); MCH 31.2 pg (27.0-33.0); MCHC 33.4 % (32.0-36.0); MCV 93 fL (80-95); Platelet Count 235 10^3/uL (130-400); RDW 13.4 % (11.7-14.6); RDW-SD 46.2 fL; WBC 10.21 10^3/uL (4.4-10.8)
[2024-04-11 06:41] LABS: Anion Gap 6.1 mmol/L (3-11); BUN 49 mg/dL (7-18); CO2 29.9 mmol/L (21.0-32.0); CREATININE 1.7 mg/dL (0.55-1.02); Chloride 104 mmol/L (98-107); Glucose 111 mg/dL (74-106); Potassium 3.6 mmol/L (3.5-5.1); Sodium 140 mmol/L (136-145)
[2024-04-11 06:45] LABS: Magnesium 1.8 mg/dL (1.8-2.4); Troponin I 15 ng/L (<or=51)
[2024-04-11] MEDS: Tiotropium/Olodaterol 10 PUFF INHALER 2 PUFF IH (08:06)
[2024-04-11] MEDS: Magnesium Oxide 400 MG TAB 800 MG PO ×2 (08:18→19:47)
[2024-04-11] MEDS: Atorvastatin 40 MG TAB 80 MG PO (08:18)
[2024-04-11] MEDS: Apixaban 5 MG TAB PO ×2 (08:19→19:47)
[2024-04-11] MEDS: Sucralfate 1 GM TAB PO ×4 (08:19→22:55)
[2024-04-11] MEDS: glipiZIDE 5 MG TAB PO (08:20)
[2024-04-11] MEDS: traZODone 50 MG TAB PO (08:21)
[2024-04-11] MEDS: Famotidine 20 MG TAB 10 MG PO (08:23)
[2024-04-11] MEDS: Normal Saline Flush 10 ML SYR ×3 (08:42→18:08)
--- NOTE | 2024-04-11 10:38 | CCONE_ITS ---
Date of service: 04/11/24 Time of Service: 10:38 Assessment and Plan Assessment and plan (1) CHF (congestive heart failure): Status: Chronic Assessment and plan: Patient has heart failure. To some extent this may be driving her heart rate. I would recommend continued gentle diuresis. An echocardiogram has been ordered but not yet completed due to elevated heart rates. It could be attempted again tomorrow, will likely be suboptimal given body habitus as well (2) Atrial fibrillation with rapid ventricular response: Status: Acute Assessment and plan: As above, heart failure may be contributing to elevated heart rates. I would recommend ongoing use of metoprolol orally, only holding for symptomatic hypotension. I would add that obtaining blood pressures on her forearm may or may not be accurate. Digoxin could be considered with the understanding that this medication is rarely used anymore (3) COPD (chronic obstructive pulmonary disease): Status: Chronic Assessment and plan: Patient likely has sleep apnea (obesity/hypoventilation.) (4) Cardiac pacemaker in situ: Assessment and plan: If information can be obtained regarding the device it would be helpful. She will eventually need to be followed in clinic History of Present Illness Narrative: Cardiac evaluation is requested in this 78-year-old woman. She has a cardiac history which the most part occurred when she resided in [place]. This includes bypass surgery, aortic valve replacement, chronic atrial fibrillation, prior pacemaker. She relocated to [place] 6 or 7 months ago, has not established yet with a employee service officer as there are no records for review. Patient says she came to the hospital after she fell off a chair. She describes dyspnea with activity. She is overall extremely sedentary, does not ambulate, has a motorized wheelchair. In the emergency room she was found to have evidence of congestive heart failure by imaging, as well as uncontrolled atrial fibrillation. There was no evidence of acute myocardial infarction. She has been diuresed a little bit, reportedly became hypotensive by blood pressure readings though not symptomatic. Her heart rate remains elevated, currently it is 1 20-1 50. Rate control medication has been limited given her blood pressure readings. Hospitalist wants to know if digoxin would be indicated Review of Systems Cardiovascular Cardiovascular: Reports as per HPI, Denies chest pain, Reports irregular heart rhythm, Reports palpitations and Reports dyspnea on exertion Respiratory Respiratory: Reports dyspnea on exertion Endocrine Endocrine: Reports palpitations PFSH All Active Problems (Updated 04/11/24 @ 10:43 by Marylin Tompkins MD) CHF (congestive heart failure) (Chronic) Atrial fibrillation with rapid ventricular response (Acute) COPD (chronic obstructive pulmonary disease) (Chronic) Type 2 diabetes mellitus without complications (Acute) Hypoxia (Acute) Chronic obstructive pulmonary disease with (acute) exacerbation (Acute) Medical History (Updated 04/11/24 @ 10:43 by Marylin Tompkins MD) Loose left total knee arthroplasty HTN (hypertension) Contusion of toe, left Dermal mycosis Thyroid nodule Diabetic peripheral neuropathy Vitamin D deficiency Hyperparathyroidism HLD (hyperlipidemia) Obesity Anemia Leukocytosis Depressive disorder GERD (gastroesophageal reflux disease) Cellulitis Stress incontinence Afib Diabetes Cardiac pacemaker in situ Anxiety Surgical History S/P AVR replaced with bovine valve Hx of CABG Family History Father Bone cancer Mother Myocardial infarction Brother Myocardial infarction Social History Smoking/Tobacco Use Status: Former Tobacco Use Smoking risk assessment performed?: Yes Housing: apartment Exam Const Other: Morbidly obese woman comfortable in bed. Blood pressure cuff is on her right forearm. Neck Other: Unable to assess JVP carotid pulsations are grossly normal Resp Other: Decreased breath sounds at the bases Cardio Other: Irregularly irregular and tachycardic Extrem Other: No significant edema Results Last Vital Signs Temp 36.7 C 04/11/24 08:51 Pulse 148 H 04/11/24 08:00 Resp 32 H 04/11/24 08:40 BP 101/88 04/11/24 08:00 Pulse Ox 92 04/11/24 08:40 Labs 04/11/24 05:56 04/11/24 05:56 Labs: Laboratory Results - last 24 hr 04/10/24 04/10/24 04/10/24 17:56 19:27 19:54 WBC 10.61 RBC 3.49 L Hgb 11.0 L Hct 32.9 L MCV 94 MCH 31.5 MCHC 33.4 RDW 13.6 Plt Count 219 MPV 12.2 H Immature Gran % 0.2 Neutrophils % 69.5 Lymphocytes % 18.9 Monocytes % 6.3 Eosinophils % 4.6 Basophils % 0.5 Nucleated RBC % 0.0 Absolute Neutrophils 7.37 H Absolute Lymphocytes 2.01 Absolute Monocytes 0.67 Absolute Eosinophils 0.49 Absolute Basophils 0.05 PT 11.3 H INR 1.1 APTT 27.8 D-Dimer 1758 H VBG Lactate 1.2 Sodium 137 Potassium 3.6 Chloride 98 Carbon Dioxide 29.0 Anion Gap 10.0 BUN 52 H Creatinine 1.8 H Est GFR (CKD-EPI 2020) 28.48 Glucose 157 H Calcium 8.8 Magnesium 1.7 L Total Bilirubin 0.78 AST 21 ALT 33 Alkaline Phosphatase 131 H Troponin I 18 13 Cancelled NT-Pro-B Natriuret Pep 7834 H Total Protein 7.6 Albumin 3.0 L TSH 2.57 COVID-19 Source SARS-CoV-2 (PCR) Influenza Type A (PCR) Influenza Type B (PCR) RSV (PCR) 04/10/24 04/11/24 21:33 05:56 WBC 10.21 RBC 3.30 L Hgb 10.3 L Hct 30.8 L MCV 93 MCH 31.2 MCHC 33.4 RDW 13.4 Plt Count 235 MPV 12.0 H Immature Gran % Neutrophils % Lymphocytes % Monocytes % Eosinophils % Basophils % Nucleated RBC % Absolute Neutrophils Absolute Lymphocytes Absolute Monocytes Absolute Eosinophils Absolute Basophils PT INR APTT D-Dimer VBG Lactate Sodium 140 Potassium 3.6 Chloride 104 Carbon Dioxide 29.9 Anion Gap 6.1 BUN 49 H Creatinine 1.7 H Est GFR (CKD-EPI 2020) 30.50 Glucose 111 H Calcium 9.0 Magnesium 1.8 Total Bilirubin AST ALT Alkaline Phosphatase Troponin I 15 NT-Pro-B Natriuret Pep Total Protein Albumin TSH COVID-19 Source Nasopharynx SARS-CoV-2 (PCR) Negative Influenza Type A (PCR) Negative Influenza Type B (PCR) Negative RSV (PCR) Negative
--- NOTE | 2024-04-11 11:10 | PHA.REVIEW2 ---
Pharmacy Admission Review Admission Clinical Review Admission Pharmacy Review: Atrial fibrillation with rapid ventricular response (Acute) Type 2 diabetes mellitus without complications (Acute) gabapentin Allergy (Unverified 04/10/24 22:45) Unknown pantoprazole Allergy (Unverified 04/10/24 22:45) Unknown semaglutide (From Ozempic) Allergy (Unverified 04/10/24 22:45) Unknown Resuscitation Status DNR/DNI Height 5 ft 1 in Weight 98.8 kg Comments Comments/Follow Ups: Cardio consult pending Pharmacy Admission Review Renal Dosing Renal Dosing: BUN 49 mg/dL (7-18) H 04/11/24 05:56 Creatinine 1.7 mg/dL (0.55-1.02) H 04/11/24 05:56 Medications needing adjustments: Intervened (CrCl 29.33 mL/min, BUN decreased from 52 and SCr decreased from 1.8) List of meds needing interventions: Changed famotidine from 20mg daily to 10mg every other day due to CrCl < 30 Anticoagulation Anticoagulation: Hgb 10.3 g/dL (11.2-15.7) L 04/11/24 05:56 Hct 30.8 % (36.0-46.0) L 04/11/24 05:56 Plt Count 235 10^3/uL (130-400) 04/11/24 05:56 INR 1.1 (0.9-1.1) 04/10/24 17:56 Creatinine 1.7 mg/dL (0.55-1.02) H 04/11/24 05:56 DVT Prophylaxis: Reviewed (hgb decreased from 11) Medications: Apixaban (5mg PO BID) Relevant Labs Relevant Labs: Sodium 140 mmol/L (136-145) 04/11/24 05:56 Potassium 3.6 mmol/L (3.5-5.1) 04/11/24 05:56 Chloride 104 mmol/L (98-107) 04/11/24 05:56 Magnesium 1.8 mg/dL (1.8-2.4) 04/11/24 05:56 Electrolytes, C-Reactive P, ESR: Reviewed DM Control DM Control: Glucose 111 mg/dL (74-106) H 04/11/24 05:56 Finger Stick Blood Glucose 109 0741 Finger Stick Blood Glucose 109 0741 DM Control: Reviewed Insulin Dosing, Diabetic Medication: Has order for SS insulin, glargine 66 units every evening and glipizide 5mg daily Cardiac Review Cardiac Review: Troponin I 15 ng/L (<or=51) 04/11/24 05:56 NT-Pro-B Natriuret Pep 7834 pg/mL (<300) H 04/10/24 17:56 Blood Pressure : Heart Rate 101/88 : 148 0800 Blood Pressure : Heart Rate 98/67 : 128 0755 Blood Pressure : Heart Rate 89/59 : 79 0701 Blood Pressure : Heart Rate 106/68 : 114 0600 Blood Pressure : Heart Rate 96/65 : 95 0501 Blood Pressure : Heart Rate 96/65 : 95 0501 Blood Pressure : Heart Rate 104/62 : 127 0401 Blood Pressure : Heart Rate 120/61 : 124 0306 Blood Pressure : Heart Rate 106/64 : 134 0301 BP, HR, EF%: Reviewed (RR 32) QTc Review QTc: Reviewed (470 from 04/10/24) IV to PO Switch IV Medications: Reviewed Home Meds Home Med List reviewed: Intervened Relevent Home Meds Not ordered & why?: Albuterol (tachycardia - has order for levalbuterol), furosemide (on hold), lisinopril (on hold) and metoprolol (on hold) Recently filled but not on home med list: Min - reached out to nursing to check with patient. Per nurse patient stated they started me on a new insulin but I haven't touched it yet. I added the Ozempic to her home med list and informed the provider. Current Meds Current Medication Order Review: Intervened Comments: Changed sucralfate frequency from QID to with meals and at bedtime Comments Comments/Follow Ups: Cardio consult pending
[2024-04-11] MEDS: Miconazole 2% Topical Powder 85 GM BTL (11:40)
[2024-04-11] MEDS: Metoprolol 50 MG TAB PO ×2 (11:52→14:10)
[2024-04-11] MEDS: Insulin Aspart 300 UNITS/3 ML PEN SC ×2 (11:54→16:48)
--- NOTE | 2024-04-11 14:57 | PGE_ITS ---
Date of Service Date of service: 04/11/24 Time of Service: 14:57 Assessment and Plan Assessment and plan (1) Atrial fibrillation with rapid ventricular response: Status: Acute Assessment and plan: -Patient presented with tachycardia signs consistent with A-fib RVR -Was given additional doses of p.o. and IV Lopressor overnight in addition to her home dose of 25 mg p.o. twice daily Toprol XL -Currently on 100 mg p.o. Lopressor twice daily -Heart rates remain elevated and blood pressures decreased to low 100s systolic -Appreciate cardiology consultation; recommendation to uptitrate p.o. metoprolol and only hold if patient develops symptomatic hypotension (2) CHF (congestive heart failure): Status: Chronic Assessment and plan: -Patient has documented history of heart failure, and this may be driving her A- fib RVR at this time -Cardiology recommended gentle diuresis and will reinitiate IV equivalent of patient's p.o. outpatient Lasix she is 60 mg p.o. daily -Will obtain echocardiogram once rate allows (3) COPD (chronic obstructive pulmonary disease): Status: Chronic Assessment and plan: -Patient likely has sleep apnea (obesity/hypoventilation.) -Is contributing factor in her A-fib and heart failure (4) Cardiac pacemaker in situ: Subjective Subjective Interval history since last seen: Patient states that she is feeling better as compared to admission. She understands the plan to continue working on rate control medication and has no other complaints or concerns at this time. Exam Narrative Exam Narrative: Well-appearing female laying in bed in no acute distress, ANO x 4, heart irregularly irregular rates in the 120s to 140s, lungs clear to auscultation bilaterally, abdomen soft, nontender, nondistended Objective Last Vital Signs Temp 98.1 F 04/11/24 08:51 Pulse 148 H 04/11/24 08:00 Resp 32 H 04/11/24 08:40 BP 101/88 04/11/24 08:00 Pulse Ox 92 04/11/24 08:40 Laboratory Results - last 24 hr 04/10/24 04/10/24 04/10/24 17:56 19:27 19:54 WBC 10.61 RBC 3.49 L Hgb 11.0 L Hct 32.9 L MCV 94 MCH 31.5 MCHC 33.4 RDW 13.6 Plt Count 219 MPV 12.2 H Immature Gran % 0.2 Neutrophils % 69.5 Lymphocytes % 18.9 Monocytes % 6.3 Eosinophils % 4.6 Basophils % 0.5 Nucleated RBC % 0.0 Absolute Neutrophils 7.37 H Absolute Lymphocytes 2.01 Absolute Monocytes 0.67 Absolute Eosinophils 0.49 Absolute Basophils 0.05 PT 11.3 H INR 1.1 APTT 27.8 D-Dimer 1758 H VBG Lactate 1.2 Sodium 137 Potassium 3.6 Chloride 98 Carbon Dioxide 29.0 Anion Gap 10.0 BUN 52 H Creatinine 1.8 H Est GFR (CKD-EPI 2020) 28.48 Glucose 157 H Calcium 8.8 Magnesium 1.7 L Total Bilirubin 0.78 AST 21 ALT 33 Alkaline Phosphatase 131 H Troponin I 18 13 Cancelled NT-Pro-B Natriuret Pep 7834 H Total Protein 7.6 Albumin 3.0 L TSH 2.57 COVID-19 Source SARS-CoV-2 (PCR) Influenza Type A (PCR) Influenza Type B (PCR) RSV (PCR) 04/10/24 04/11/24 21:33 05:56 WBC 10.21 RBC 3.30 L Hgb 10.3 L Hct 30.8 L MCV 93 MCH 31.2 MCHC 33.4 RDW 13.4 Plt Count 235 MPV 12.0 H Immature Gran % Neutrophils % Lymphocytes % Monocytes % Eosinophils % Basophils % Nucleated RBC % Absolute Neutrophils Absolute Lymphocytes Absolute Monocytes Absolute Eosinophils Absolute Basophils PT INR APTT D-Dimer VBG Lactate Sodium 140 Potassium 3.6 Chloride 104 Carbon Dioxide 29.9 Anion Gap 6.1 BUN 49 H Creatinine 1.7 H Est GFR (CKD-EPI 2020) 30.50 Glucose 111 H Calcium 9.0 Magnesium 1.8 Total Bilirubin AST ALT Alkaline Phosphatase Troponin I 15 NT-Pro-B Natriuret Pep Total Protein Albumin TSH COVID-19 Source Nasopharynx SARS-CoV-2 (PCR) Negative Influenza Type A (PCR) Negative Influenza Type B (PCR) Negative RSV (PCR) Negative Time Spent with Patient Time Spent with Patient: >50 minutes Time was spent: preparing to see the patient(eg.review tests), obtaining and/or reviewing separately otained hiistory, ordering medications,tests, procedures, referring, communicating with other health palliative care coordinator, indepentently interpreting results, counseling the patient and care coordination
--- NOTE | 2024-04-11 15:08 | INITIAL_ITS ---
Date of service: 04/11/24 Time of Service: 12:00 Care Management Initial Assmt Initial Assessment Reason for Hospitalization: afib with rapid ventricular response Functional Status/Living Situation Patient Presentation: Jessa presented to the ER yesterday with c/o 2 days of weakness, SOB, feeling of her heart racing, and feeling tired all the time. She had fallen earlier in the day. She was found to be in rapid afib. She was given meds in the ER, but they did not control her HR. When CM met with her, Jessa was just finishing her lunch. She was sitting up in the bed. Jessa was very easy to talk with, pleasant. She appeared well. It was noted that her HR was still in the 140s-160s while talking with CM. Jessa is mainly non ambulatory. She uses and electric wheel chair to get a round. Jessa has support from her CM at [place] [facility] Aging, and [facility] supports. Jessa also utilizes, Meals on Wheels, and has part-time care givers from [facility], who help with hygiene and light housework. She gets her groceries delivered. Jessa has a granddaughter who lives in the same building, but she is sickly herself and doesn't really help her. But she has 2 good friends in the buil ding. Jessa has breakfast with Jake every day, and also has a good friend Gonzales who is a great support. Town of Residence: [facility] in [place] Housing Resides with: Alone Significant Other/Family: Local (Nguyen donald lives close, but is not very involved. Jessa speaks with her son, Chi, almost daily. Chi lives in [place].) Natural Supports: 2 friends in her building, son, [facility] support. 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 She stated that she loves machinery) Instrumental Activities of Daily Living (ADLs): Requires support with Dishes/food prep, Groceries, Laundry and Transportation (utilizes [facility] wheel chair van, and also uses her wheelchair to run errands down town) Activities/Hobbies/SocialSupport: Enjoys having coffee and talking/socializing Medications Medication Management: No Issues/Barriers identified Physical Functioning/Mobility Assistive Device: motorized wheelchair Advance Directives Advance Directives: Do you have an Advance Directive: N 04/10/24 23:24 AD On File at [facility]: N 03/21/24 10:05 Date Asked 04/10/24 04/10/24 16:43 AD Date Reviewed COLST On File at [facility] COLST Date Scanned Code Status Resuscitation Status DNR/DNI Insurance Coverage/Financial Issues Insurance: Medicare/[employer] Medicare Replacement and Medicaid, manager terminal Financial Issues: denies Care Team Visit Care Team Role Provider Type Zeus Hebert Primary Care Provider NON-[facility] STAFF PHYSICIAN Lauren Baez MD Emergency Provider [facility] STAFF PHYSICIAN Abel Guillory MD Admit Provider [facility] STAFF PHYSICIAN Attending Provider Other: Silvia Aguero - Pulmonology, Dr. Mccurdy of podiatry, and Dr. Tompkins of cardiology Discharge Potential Discharge Needs: PCP F/U Appt and Other (cardiac f/u - had consult with Dr. Tompkins today) Anticipated Barriers to Discharge: None Identified Patient/Family Education Needs: Review discharge instructions, discuss [facility] Me [employer] Transportation: [facility] Transportation: Wheel chair van Plan: Anticipate that Jessa will be discharged home with new RN services. She will f/u with her PCP and with cardiology. She will transport home via [facility] wheelchair van. CM will continue to follow and to update the plan as needed. Social Determinants of Health Screening Social Determinants of Health last assessed: 04/11/24 Will the Patient Participate in the Screening?: Yes Do you worry about having a steady place to live?: yes What is your living situation today?: I have housing today, but am worried about losing it (Jessa has stable housing at [place]) Problems where you live: no known problems In the past 12 months, have you had to go without electric, gas, oil or water in your home?: no Have you or anyone in your house had to go without enough food to eat?: no Has lack of transportation kept you from medical appointments or from doing things needed for daily living?: no Has anyone in your life made you feel unsafe or unsupported?: no How hard is it for you to pay for the very basics like food, housing, medical care, and heating? Would you say it is:: Not hard at all Do you want help finding or keeping work or a job?: I do not need or want help If for any reason you need help with day-to-day activities such as bathing, preparing meals, shopping, managing finances, etc., do you get the help you need?: I don?t need any help How often do you feel lonely or isolated from those around you?: Never Do you speak a language other than Malian at home?: Yes Does the patient want assistance with any of the above?: No Health Related Social Needs Health related social needs: education (Z55.6) PFSH All Active Problems (Updated 04/11/24 @ 10:43 by Marylin Tompkins MD) CHF (congestive heart failure) (Chronic) Atrial fibrillation with rapid ventricular response (Acute) COPD (chronic obstructive pulmonary disease) (Chronic) Type 2 diabetes mellitus without complications (Acute) Hypoxia (Acute) Chronic obstructive pulmonary disease with (acute) exacerbation (Acute) Medical History (Updated 04/11/24 @ 10:43 by Marylin Tompkins MD) Loose left total knee arthroplasty HTN (hypertension) Contusion of toe, left Dermal mycosis Thyroid nodule Diabetic peripheral neuropathy Vitamin D deficiency Hyperparathyroidism HLD (hyperlipidemia) Obesity Anemia Leukocytosis Depressive disorder GERD (gastroesophageal reflux disease) Cellulitis Stress incontinence Afib Diabetes Cardiac pacemaker in situ Anxiety Surgical History S/P AVR replaced with bovine valve Hx of CABG Family History Father Bone cancer Mother Myocardial infarction Brother Myocardial infarction Social History Smoking/Tobacco Use Status: Former Tobacco Use Smoking risk assessment performed?: Yes Housing: apartment Readmission Within the Past 30 Days Yes or No: No Anticipated HH Services Anticipated HH Services at Discharge [facility] Needed, RN Following Provider: Ed Hebert.
--- NOTE | 2024-04-11 16:17 | CHAPLAIN ---
Jessa was resting in bed when I visited. She said she's in for a cardiac tune up. Jessa has a pace maker and said she thought with a pace maker that everything was okay with her heart and learned later that her recent tiredness was likely a sign of her heart issues. Jessa said she moved from [place] a few months ago, where she lived near her son. She [place]'t like [place] and her son suggested she move north. She has some family members here, a granddaughter lives nearby. Jessa gets around mostly by electric wheel chair and the cold air causes the battery to run down quickly. Jessa was pleasant and easily engaged in conversation. I will continue to visit.
[2024-04-11] MEDS: Metoprolol 50 MG TAB 100 MG PO (19:47)
[2024-04-11] MEDS: Insulin Glargine 300 UNITS/3 ML PEN 66 UNITS SC (19:52)
[2024-04-11] MEDS: Bimatoprost 0.01% 2.5 ML BTL OP (19:55)
[2024-04-11] MEDS: DULoxetine 30 MG CAP PO (20:03)
[2024-04-12] VITALS (42 sets, daily range): BP systolic 104–133; BP diastolic 46–85; PULSE 107–139; RESP 8–28; TEMP 36.2–37; O2SAT 85–99
[2024-04-12] MEDS: Metoprolol 5 MG/5 ML VIAL IVP (06:13)
[2024-04-12] MEDS: Tiotropium/Olodaterol 10 PUFF INHALER 2 PUFF IH (07:45)
[2024-04-12] MEDS: traZODone 50 MG TAB PO (07:54)
[2024-04-12] MEDS: Atorvastatin 40 MG TAB 80 MG PO (07:54)
[2024-04-12] MEDS: Apixaban 5 MG TAB PO ×2 (07:54→20:21)
[2024-04-12] MEDS: Magnesium Oxide 400 MG TAB 800 MG PO ×2 (07:55→20:40)
[2024-04-12] MEDS: glipiZIDE 5 MG TAB PO (07:55)
[2024-04-12] MEDS: Sucralfate 1 GM TAB PO ×4 (07:55→21:51)
[2024-04-12] MEDS: Metoprolol 50 MG TAB 100 MG PO ×2 (07:55→20:21)
[2024-04-12] MEDS: Insulin Aspart 300 UNITS/3 ML PEN SC ×3 (07:57→16:58)
--- NOTE | 2024-04-12 08:23 | PGE_ITS ---
Date of Service Date of service: 04/12/24 Time of Service: 08:23 Assessment and Plan Assessment and plan (1) Atrial fibrillation with rapid ventricular response: Status: Acute Assessment and plan: -Patient presented with tachycardia signs consistent with A-fib RVR -Was given additional doses of p.o. and IV Lopressor overnight in addition to her home dose of 25 mg p.o. twice daily Toprol XL -Currently on 100 mg p.o. Lopressor twice daily -Heart rates remain elevated and blood pressures decreased to low 100s systolic -Appreciate cardiology consultation; recommendation to uptitrate p.o. metoprolol and only hold if patient develops symptomatic hypotension 1.10.24 pt still with significant elevations in her HR. Will also investigate other causes of afib such as infection/hyperthyroidism. Pt does have mild anemia which could be contributing a minor roll. Wonder if cardizem would be beneficial, will reach out to cards (2) CHF (congestive heart failure): Status: Chronic Assessment and plan: -Patient has documented history of heart failure, and this may be driving her A- fib RVR at this time -Cardiology recommended gentle diuresis and will reinitiate IV equivalent of patient's p.o. outpatient Lasix she is 60 mg p.o. daily -Will obtain echocardiogram once rate allows 1.110.24 Still awaiting echo, pt HR remains elevated (3) COPD (chronic obstructive pulmonary disease): Status: Chronic Assessment and plan: -Patient likely has sleep apnea (obesity/hypoventilation.) -Is contributing factor in her A-fib and heart failure (4) Cardiac pacemaker in situ: Assessment and plan: as above in subjective. Unfortunately, the pt does not remember the name of her Practical Nurse in [place]. Will try to discuss with the family to see if we can get a name/hospital/history Subjective Subjective Interval history since last seen: Pt seen and examined in her room this am. Pt remains tachycardic but asymptomatic. Pt states that she believes she had her PPM placed in appx 1992. Pt is unsure of reason but per history, it seems it was placed 2/2 symptomatic bradycardia. Pt states that she has a porcine aortic valve. Exam Narrative Exam Narrative: Well-appearing female laying in bed in no acute distress, ANO x 4, heart irregularly irregular rates in the 120s to 140s, lungs clear to auscultation bilaterally, abdomen soft, nontender, nondistended\ no bilat sheila NOYOLA in place Objective Last Vital Signs Temp 36.4 C L 04/12/24 08:00 Pulse 126 H 04/12/24 08:00 Resp 25 H 04/12/24 08:00 BP 125/84 04/12/24 08:00 Pulse Ox 97 04/12/24 08:00 Time Spent with Patient Time Spent with Patient: 35-49 minutes Time was spent: preparing to see the patient(eg.review tests), ordering med ications,tests, procedures, referring, communicating with other health child care centre director, indepentently interpreting results, counseling the patient and care coordination
--- NOTE | 2024-04-12 09:32 | PDOC.CMPRO ---
Date of service: 04/12/24 Time of Service: 09:32 Care Management Progress Note Progress Note Text Progress Note Text: Jessa was sitting up in the bed when CM met with her this morning. She looked well, was very pleasant. She had eaten her breakfast, and was feeling not great because she hadn't slept last night. She is hoping to take a morning nap. Her HR was noted to have improved, but still elevated in the 110-120's. She was also using some nc O2 today. She does not use O2 at home, but she stated that her PCP has suggested this in the past. Jessa declined any word search or other game books as she stated her eye sight is not that good. CM let Jessa know that Angel, from [facility], called yesterday to check in, let her know she is available to help her out if she needs anything, and that she is working on getting Jessa hearing aids. Discharge Potential Discharge Needs: PCP F/U Appt and Other (cardiology f/u) Anticipated Barriers to Discharge: None Identified Patient/Family Education Needs: Review discharge instructions, discuss Ask Me Three Transportation: RCT RCT Transportation: Wheel chair van Plan: Anticipate that Jessa will be discharged home with new RN services. She will f/u with her PCP and with cardiology. She will transport home via RCT wheelchair van. CM will continue to follow and to update the plan as needed. Social Determinants of Health Screening Social Determinants of Health last assessed: 04/12/24 Will the Patient Participate in the Screening?: Yes Do you worry about having a steady place to live?: yes What is your living situation today?: I have housing today, but am worried about losing it (Jessa has stable housing at [facility]) Problems where you live: no known problems In the past 12 months, have you had to go without electric, gas, oil or water in your home?: no Have you or anyone in your house had to go without enough food to eat?: no Has lack of transportation kept you from medical appointments or from doing things needed for daily living?: no Has anyone in your life made you feel unsafe or unsupported?: no How hard is it for you to pay for the very basics like food, housing, medical care, and heating? Would you say it is:: Not hard at all Do you want help finding or keeping work or a job?: I do not need or want help If for any reason you need help with day-to-day activities such as bathing, preparing meals, shopping, managing finances, etc., do you get the help you need?: I don?t need any help How often do you feel lonely or isolated from those around you?: Never Do you speak a language other than Hebrew at home?: Yes Does the patient want assistance with any of the above?: No Health Related Social Needs Health related social needs: housing instability, housed, with risk of homelessness (Z59.811) and education (Z55.6) Anticipated HH Services Anticipated HH Services at Discharge [facility] Needed, RN Following Provider: Ed Hebert.
--- NOTE | 2024-04-12 10:30 | DI.US_ITS ---
APPROVED REPORT EXAM: Comprehensive 2D, Doppler, and color-flow Echocardiogram Patient Location: In-Patient Room/Bed: 222 Merchandise Executive: Leo Benson RDCS (AE) Indications: BNP = 8000 without CHF dx Other Information Study Quality: Technically Limited. Technically limited study due to body habitus, inability to posit ion patient. Conclusion Technically difficult study Left ventricle appears grossly normal in size and wall thickness. Ejection fraction is estimated at 50%. No segmental wall motion abnormalities are identified Normal right ventricular size and function Both atria are moderately enlarged There is a bioprosthetic aortic valve replacement. There is no significant gradient, no aortic regur gitation Thickened mitral leaflets. Mild mitral regurgitation Mild tricuspid regurgitation. Estimated right ventricular systolic pressure is 52 mmHg Wall motion Left Ventricle The left ventricle is normal size. There is normal left ventricular wall thickness. There is no ventr icular septal defect visualized. LVEF is 50%. Right Ventricle Right ventricle is not well visualized. Right ventricular systolic function is grossly normal. Pacema ker lead is present in the right ventricle. Atria Left atrium is moderately dilated. Right atrium is moderately dilated. The interatrial septum is inta ct with no evidence for an atrial septal defect. Aortic Valve Bioprosthetic aortic valve is present. No aortic regurgitation is present. Mitral Valve The mitral valve is moderately thickened. No evidence of mitral valve stenosis. Mild mitral regurgita tion. Tricuspid Valve The tricuspid valve is normal in structure. There is no tricuspid valve stenosis. Mild tricuspid regu rgitation. The RVSP is 51.8 mmHg. Pulmonic Valve The pulmonary valve is normal in structure. There is no pulmonic valvular stenosis. There is no pulmo jack valvular regurgitation. Great Vessels The ascending aorta is normal in size. Aortic arch is normal in caliber. The IVC is dilated. The IVC collapses <50% with inspiration. Pericardium There is no pericardial effusion. 2D Dimensions IVSD d PLAX 0.89 cm F: 0.6-1.0 Ao Asc Diam d 2.78 cm F: 2.3 - 3.1 LVPW d PLAX 0.87 cm F: 0.6 - 1.0 LVID d PLAX 4.50 cm F: 3.8 - 5.2 LVDs 3.64 cm F: 2.2 - 3.5 LV EF Teichholz 39.6 % FS 19.12 % LV EDV (Teich) 92.5 mL LV ESV (Teich) 55.9 mL LA Volume LA Length A4C 5.3 cm LA Length A2C 5.4 cm LA Area A4C s 18.08 cm2 LA Area A2C s 17.06 cm2 LA Vol A4C A-L 52.50 mL LA Vol A2C A-L 45.59 mL LA Vol Biplane A-L 49.5 mL LA Vol A4C MOD 49.9 mL LA Vol A2C MOD 44.6 mL LA Vol BP MOD 47.4 mL RA Volume RA Area A4C 14.0 cm2 RA ESV A4C (A-L) 32.7mL RA Vol/BSA A4C A-L RA Length A4C 5.1 cm RA ESV A4C (MOD) 31.1mL LV Diastology MV E Vmax 1.66 (0.4-1.3 m/s) Aortic Valve AoV Vmax 1.15 m/s LVOT Vmax 0.71 m/s AoV Peak Grad 5.3 mmHg LVOT Peak Grad 2.0 mmHg AoV VTI 0.231 m LVOT VTI 0.141 m AoV Mean Bertin. 0.83 m/s LVOT Mean Grad 1.1 mmHg AoV Mean Grad 2.9 mmHg AV Regurg Peak Gr. 5.31 mmHg Velocity Ratio 0.62 Mitral Valve MV Vmax TIPS 2.04 m/s MV Mean Grad 8.3 (<2mmHg) MV VTI 0.433 m Pulmonary Valve PV Vmax 0.75 (0.5-1.5 m/s) RVOT Vmax 0.55 m/s PV Peak Grad 2.2 mmHg RVOT Peak Gr. 1.2 mmHg PV Mean Bertin 0.49 m/s RVOT VTI 0.078 m PV Mean Grad 1.1 mmHg RVOT Mean Gr. 0.7 mmHg Tricuspid Valve RA Pressure 15.00 mmHg TR Vmax 3.03 m/s TR Peak Grad 36.8 mmHg RVSP (TR) 51.8 mmHg
[2024-04-12 10:57] LABS: Bilirubin Negative (Negative); Blood Negative (Negative); Clarity Clear (Clear); Glucose Negative (Negative); Ketones Negative (Negative); Leukocyte Esterase Negative (Negative); Nitrite Negative (Negative); Urobilinogen 0.2 mg/dL (Up to 0.2); pH 5.5 (5-8)
--- NOTE | 2024-04-12 15:15 | PT.INIE ---
PT Notes Visit Reasons: afib with RVR Physical Therapy Inpatient Initial Evaluation Date: 04/12/2024 Referring Doctor: Andre Alvarado MD PT Orders: PT CONSULT: Eval/Treat Precautions: Fall. Standard. Activity as tolerated. Patient Profile/Admitting Diagnosis: Jessa is a 78-year-old female admitted to the ED on 04/10/2024 due to generalized weakness palpitations, and worsening shortness of breath. Patient is admitted in the ICU for management and close monitoring of of congestive heart failure, AF with RVR, COPD exacerbation and type 2 diabetes mellitus. PMHX: All Active Problems (Updated 04/11/24 @ 04:11 by Abel Guillory MD) CHF (congestive heart failure) (Chronic) New onset a-fib (Acute) Atrial fibrillation with rapid ventricular response (Acute) COPD (chronic obstructive pulmonary disease) (Chronic) Type 2 diabetes mellitus without complications (Acute) Hypoxia (Acute) Chronic obstructive pulmonary disease with (acute) exacerbation (Acute) Medical History Loose left total knee arthroplasty HTN (hypertension) Contusion of toe, left Dermal mycosis Thyroid nodule Diabetic peripheral neuropathy Vitamin D deficiency Hyperparathyroidism HLD (hyperlipidemia) Obesity Anemia Leukocytosis Depressive disorder GERD (gastroesophageal reflux disease) Cellulitis Stress incontinence Afib Diabetes Cardiac pacemaker in situ Anxiety Surgical History 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 Main mode of mobility indoors and outdoors is electric scooter for so many years now. Receives about 5 hours once a week of home health aide services for house chores, laundry, bathing assistance, and meal preparation. Patient is able to change own soiled diaper while holding/leaning onto grab bar/wall. Apartment is handicap-accessible. Does not drive. Grocery gets delivered to her regularly. She is able to perform transfers only using her FWW. Equipment Owned/DME: Tub bench, motorized wheelchair, FWW, ramp Subjective: Patient complained of significant pain in low back area and her bottom when she sat at edge of bed with PT. She became anxious and mildly agitated and did not want to do anything more due to increased pain in back and ferfulness of falling. Nurse Radha said that patient has been wheelchair-bound but patient was seen earlier today transferrring to [facility] on her using her walker. Objective: General Observation: Telemetry monitoring in place. Mental Status: Alert. Responses have been appropriate but when asked if she knew where she was, patient refused to answer. Pain: As above Vital Signs: BP WNL taken before start of moving in bed ROM: Right Upper Extremity: Shoulder Flexion WFL. Shoulder abduction WFL. Elbow flexion WFL. Wrist flexion WFL. Functional opening and closing of hand WFL. Left Upper Extremity: Shoulder Flexion WFL. Shoulder abduction WFL. Elbow flexion WFL. Wrist flexion WFL. Functional opening and closing of hand WFL. Right Lower Extremity: Hip flexion allows up to 90 degrees. Hip abduction WFL. Knee flexion extension -30 degrees 30 degrees to 90 degrees. Ankle dorsiflexion to neutral only.. Ankle plantarflexion WFL. Left Lower Extremity: Hip flexion allows up to 90 degrees. Hip abduction WFL. Knee flexion extension -30 degrees 30 degrees to 90 degrees. Ankle dorsiflexion to neutral only.. Ankle plantarflexion WFL. Strength: Right Upper Extremity: Shoulder flexors 4-/5. Shoulder abductors 4-/5. Elbow flexors 4-/5. Elbow extensors 4-/5. Apprise Counselor strong. Left Upper Extremity: Shoulder flexors 4-/5. Shoulder abductors 4-/5. Elbow flexors 4-/5. Elbow extensors 4-/5. Apprise Counselor strong. Right Lower Extremity: Hip flexors 3-/5. Hip abductors 4-/5. Knee flexors 3-/5. Knee extensors 3-/5. Ankle dorsiflexors 3-/5. Ankle plantarflexors 4-/5. Left Lower Extremity: Hip flexors 3-/5. Hip abductors 4-/5. Knee flexors 3-/5. Knee extensors 3-/5. Ankle dorsiflexors 3-/5. Ankle plantarflexors 4-/5. Bed Mobility/Transfers: Moderate cueing provided for use of B hands as needed for support, movement sequence, AD management, and posture to reduce fall risk and minimize pain report Rolling with minimal assist using side rail Supine to sit moderate assist using side rail Sit to supine moderate assist Sit to stand unable to test due to pain level Stand to sit unable to test due to pain level Bed to bedside commode unable to test due to pain level Bedside commode to bed unable to test due to pain level Bed to reclining chair unable to test due to pain level Reclining chair to bed unable to test due to pain level Gait: Anxious about falling and increased pain level. Deferred for today. Balance: Static Sitting: Fair Dynamic Sitting: Poor Static Standing: Unable to test Dynamic Standing: Unable to test Special Tests: Mobility Limitations Standardized Measure [facility] AM-PAC 6 clicks Basic Mobility Inpatient Short Form: Raw Score: 18 CMS Score: 47% deficit Informed Consent/Education: Patient was instructed in purpose of PT consult and plan of care. Agreeable to proceed with established PT POC to achieve personal goals. as long as there are two people who will be thre to help her whne she attempts to move out of bed and she is pre-medicated for pain. Assessment: Nurse Radha verbalized that patient was able to walk from bed to bedside commode earlier today on her own without assistance. However during the PT evaluation, patient complained of significant pain in low back and bottom area when she tried to sit up and became highly anxious about doing more. She agreed to attempting another transfer tomorrow morning with pain pre-medication and assistance of 2 caregivers. Patient may require short-term rehab placement before going home with HH PT to allow consistent pain level as she regains her ability for independent transfers. Patient presents with clinical signs and symptoms consistent with current/admitting diagnoses that have resulted to mobility limitations, gait instability, generalized weakness, and overall ADL decline as demonstrated by the following impairment level findings: 1. Decreased strength to B UE/LE major muscle groups 2. Impaired sitting/standing balance 3. Impaired activity tolerance 4. Limitation of joint range of motion in b knee flexion 5. Shortness of breath 6. Low back and gluteal pain Impairments are contributing to the following functional limitations: 1. Decline in bed mobility skills 2. Decline in transfer skills 3. Difficulty with ambulation without assistive device and physical assistance 4. Increased completion time for mobility ADL performance 5. Increased risk for falls 6. Difficulty with managing steps alone safely Patient is assessed as a 19805 moderate complexity based on the following: History: 78-year-old female with past medical history as indicated above Examination: Demonstrable impairment in strength, balance, and mobility level with underlying impairments and functional limitations as exhibited above as well as deficit score of 47% utilizing the [facility] Mobility Inpatient Short Form Presentation: Evolving Decision Makin moderate complexity Goals: Goals X1 week 1. Supine-Sit independent 2. Sit-Supine independent 3. Sit-Stand independent 4. Stand-Sit independent with FWW 5. Bed-Chair independent with FWW 6. Chair-Bed independent with FWW 7. Independent gait on level surface with use of FWW for at least 10 feet without report of pain nor dyspnea 9. Good static and dynamic standing balance/tolerance Plan of Care/Treatment Plan: 1-2x/day, 7 days/week x 1 week. Plan of care has been reviewed with the BUSINESS DEVELOPMENT CONSULTANT providing the service under Physical Therapy direction. Initiate Physical Therapy intervention for pain management as needed, strengthening, bed mobility, transfers, gait, stairs, balance training, and use of assistive device. DISCHARGE RECOMMENDATIONS: [] Home with no services [] [] Home with services [specify] [] Home with outpatient PT [] [] SNF for continued rehabilitation [] [] Business Transformation Analyst Care [] [] SNF versus LTC based on ability to participate and progress [] [X] Short-term SNF vs PT TREATMENT CODE/TIME: 14103 x 20 minutes for 1 unit, 16362 x 10 minutes (15;15-15:45). Thank you for the opportunity to participate in the care of this patient. Tamia Borja PT, DPT, CLT [facility] [place], [place]
[2024-04-12] MEDS: DULoxetine 30 MG CAP PO (20:21)
[2024-04-12] MEDS: Insulin Glargine 300 UNITS/3 ML PEN 66 UNITS SC (20:22)
[2024-04-12] MEDS: Bimatoprost 0.01% 2.5 ML BTL OP (20:22)
[2024-04-12] MEDS: Levalbuterol 1.25 MG/3 ML UPD VIAL UPD (22:02)
[2024-04-13] VITALS (25 sets, daily range): BP systolic 95–127; BP diastolic 53–90; PULSE 85–129; RESP 12–29; TEMP 36.3–36.9; O2SAT 82–98
[2024-04-13] MEDS: Acetaminophen 325 MG TAB 650 MG PO ×2 (04:58→11:46)
[2024-04-13] MEDS: Normal Saline Flush 10 ML SYR IVP ×2 (04:59→17:05)
[2024-04-13 06:20] LABS: Abs Immature Grans 0.05 10^3/uL (0.0-0.06); Absolute Basophil Count 0.06 10^3/uL (0.0-0.2); Absolute Eosinophil Count 0.43 10^3/uL (0.0-0.7); Absolute Monocyte Count 0.78 10^3/uL (0.1-0.8); Absolute Neutrophil Count 7.44 10^3/uL (1.2-6.7); Basophils % 0.6 %; Eosinophils % 4.2 %; HCT 30.4 % (36.0-46.0); HGB 10.1 g/dL (11.2-15.7); Immature Grans % 0.5 %; Lymphocytes % 15.4 %; MCH 30.8 pg (27.0-33.0); MCHC 33.2 % (32.0-36.0); MCV 93 fL (80-95); MPV 11.7 fL (8.0-11.0); Monocytes % 7.5 %; Neutrophils % 71.8 %; Platelet Count 264 10^3/uL (130-400); RBC 3.28 10^6/uL (3.93-5.22); RDW 13.2 % (11.7-14.6); RDW-SD 45.2 fL; WBC 10.36 10^3/uL (4.4-10.8)
[2024-04-13 06:32] LABS: ALT 26 U/L (14-59); AST 17 U/L (15-37); Albumin 2.5 g/dL (3.4-5.0); Alkaline Phosphatase 127 U/L (46-116); BUN 50 mg/dL (7-18); Bilirubin, Total 0.66 mg/dL (0.2-1.0); CREATININE 1.5 mg/dL (0.55-1.02); Chloride 103 mmol/L (98-107); Estimated GFR 35.45 (mL/min/1.73m2); Glucose 120 mg/dL (74-106); Potassium 3.8 mmol/L (3.5-5.1); Sodium 139 mmol/L (136-145); Total Protein 6.6 g/dL (6.4-8.2)
[2024-04-13] MEDS: glipiZIDE 5 MG TAB PO (06:56)
[2024-04-13] MEDS: Sucralfate 1 GM TAB PO ×4 (06:56→20:14)
[2024-04-13] MEDS: Tiotropium/Olodaterol 10 PUFF INHALER 2 PUFF IH (08:15)
--- NOTE | 2024-04-13 08:16 | W.PM.PROGNOT ---
Date of Service Date of service: 04/13/24 Time of Service: 08:16 Assessment and Plan Assessment and plan (1) Atrial fibrillation with rapid ventricular response: Status: Acute Assessment and plan: -Patient presented with tachycardia signs consistent with A-fib RVR -Was given additional doses of p.o. and IV Lopressor overnight in addition to her home dose of 25 mg p.o. twice daily Toprol XL -Currently on 100 mg p.o. Lopressor twice daily -Heart rates remain elevated and blood pressures decreased to low 100s systolic -Appreciate cardiology consultation; recommendation to uptitrate p.o. metoprolol and only hold if patient develops symptomatic hypotension 1.10.24 pt still with significant elevations in her HR. Will also investigate other causes of afib such as infection/hyperthyroidism. Pt does have mild anemia which could be contributing a minor roll. Wonder if cardizem would be beneficial, will reach out to cards .02.25 Unfortunately was not able to connect with Dr. Tompkins yesterday. Will start on low dose cardizem and monitor bp and hr. Possible downgrade to med-surg later today (2) CHF (congestive heart failure): Status: Chronic Assessment and plan: -Patient has documented history of heart failure, and this may be driving her A-fib RVR at this time -Cardiology recommended gentle diuresis and will reinitiate IV equivalent of patient's p.o. outpatient Lasix she is 60 mg p.o. daily -Will obtain echocardiogram once rate allows 1.110.24 Still awaiting echo, pt HR remains elevated (3) COPD (chronic obstructive pulmonary disease): Status: Chronic Assessment and plan: -Patient likely has sleep apnea (obesity/hypoventilation.) -Is contributing factor in her A-fib and heart failure (4) Cardiac pacemaker in situ: Assessment and plan: as above in subjective. Unfortunately, the pt does not remember the name of her [facility] [facility] in [place]. Will try to discuss with the family to see if we can get a name/hospital/history (5) Elevated BUN: Status: Acute Assessment and plan: PT does have an elevated BUN/Cr ratio which could indicate GI Bleed vs dehydration. Will hem check stool and encourage fluid intake Subjective Subjective Interval history since last seen: Pt seen and examined in her room this am. Pt denies palpitations or chest pain/discomfort. POC d/w pt as well as bedside nurse during ICU huddle Exam Narrative Exam Narrative: Well-appearing female laying in bed in no acute distress, ANO x 4, heart irregularly irregular rates in the 120s to 140s, lungs clear to auscultation bilaterally, abdomen soft, nontender, nondistended\ no bilat JAZMÍN Objective Last Vital Signs Temp 36.9 C 04/13/24 01:56 Pulse 85 04/13/24 07:07 Resp 15 04/13/24 07:07 BP 100/62 04/13/24 07:07 Pulse Ox 93 04/13/24 08:16 Laboratory Results - last 24 hr 04/12/24 04/13/24 10:45 05:42 WBC 10.36 RBC 3.28 L Hgb 10.1 L Hct 30.4 L MCV 93 MCH 30.8 MCHC 33.2 RDW 13.2 Plt Count 264 MPV 11.7 H Immature Gran % 0.5 Neutrophils % 71.8 Lymphocytes % 15.4 Monocytes % 7.5 Eosinophils % 4.2 Basophils % 0.6 Nucleated RBC % 0.0 Absolute Neutrophils 7.44 H Absolute Lymphocytes 1.60 Absolute Monocytes 0.78 Absolute Eosinophils 0.43 Absolute Basophils 0.06 Sodium 139 Potassium 3.8 Chloride 103 Carbon Dioxide 30.0 Anion Gap 6.0 BUN 50 H Creatinine 1.5 H Est GFR (CKD-EPI 2020) 35.45 Glucose 120 H Calcium 9.0 Total Bilirubin 0.66 AST 17 ALT 26 Alkaline Phosphatase 127 H Total Protein 6.6 Albumin 2.5 L Urine Color Yellow Urine Clarity Clear Urine pH 5.5 Ur Specific [place] 1.010 Urine Protein Negative Urine Ketones Negative Urine Blood Negative Urine Nitrite Negative Urine Bilirubin Negative Urine Urobilinogen 0.2 Ur Leukocyte Esterase Negative Urine Glucose Negative Time Spent with Patient Time Spent with Patient: 35-49 minutes Time was spent: preparing to see the patient(eg.review tests), ordering medications,tests, procedures, indepentently interpreting results, counseling the patient and care coordination
[2024-04-13] MEDS: Metoprolol 50 MG TAB 100 MG PO ×2 (08:42→20:15)
[2024-04-13] MEDS: Atorvastatin 40 MG TAB 80 MG PO (08:43)
[2024-04-13] MEDS: Magnesium Oxide 400 MG TAB 800 MG PO ×2 (08:43→20:14)
[2024-04-13] MEDS: dilTIAZem 30 MG TAB PO ×3 (08:43→20:13)
[2024-04-13] MEDS: Apixaban 5 MG TAB PO ×2 (08:44→20:15)
[2024-04-13] MEDS: Famotidine 20 MG TAB 10 MG PO (08:44)
[2024-04-13] MEDS: Insulin Aspart 300 UNITS/3 ML PEN SC ×2 (12:10→17:07)
--- NOTE | 2024-04-13 12:13 | PT.INTREAT ---
PT Notes Visit Reasons: afib with RVR Inpatient Physical Therapy Treatment Note [facility] Date: 04/13/2024 PRECAUTIONS: Telemetry, IV access, standard precautions SUBJECTIVE: Patient reported she uses a grab bar next to her toilet to aid in sit to stand OBJECTIVE: Alert female smiling agreeable to participate. Patient is extremely hard of hearing ? PAIN: Patient reported slight discomfort in low back right sided after getting out of bed which resolved after walking VITALS: ?Monitored throughout via telemetry by nursing. Orthostatic vitals listed below Therapeutic Activities (04583): Direct one-on-one instruction in dynamic activities to improve functional performance. ? BED MOBILITY/TRANSFERS? Provided skilled cues and instruction on performance and technique throughout. Supine to sit standby assist with use of handrail Sit to supine CGA with increased time to get lower extremities onto bed Sit to stand x 6 trials standby assist with cues to push up from surface Stand to sit x 6 trials standby assist cues to reach back Surface to surface transfers with FWW standby assist. Services included chair bed commode Ambulation: Facilitated safe and correct performance of level surface ambulation covering a distance of 15 feet x3 using use front wheeled walker with standby assist . Did not report of any increased pain. Denied headache, chest pain, and lightheadedness throughout activity. Minimal verbal cueing provided for AD management, directional changes, and posture. ASSESSMENT: Patient initially approached in a.m. after sitting up for 2 hours requesting to return to bed but agreeable to get up after 1 hour nap. Patient started on new cardiac medication to reduce heart rate orthostatic vitals taken with nurse to determine effect on BP as well. Vitals as follows supine 101/73, sit 108/96, stand 101/90. Patient demonstrates significant improvement in ability to perform bed mobility transfers and short distance ambulating 15 feet with FWW. Patient required cues for safe hand placement during sit to stand transfers. Once cued patient able to carryover. Patient demonstrates stability no loss of balance during transfers and short distance ambulation PLAN: 1-2x/day, 7 days/week x 1 week. Plan of care has been reviewed with the WAITSTAFF providing the service under Physical Therapy direction. Initiate Physical Therapy intervention for strengthening, bed mobility, transfers, gait, stairs, balance training, use of assistive device. TREATMENT CODE/TIME: 63498 x2 units /4085-5524, 3514-1531 DISCHARGE RECOMMENDATION: Home with HH PT when medically stable
[2024-04-13] MEDS: Insulin Glargine 300 UNITS/3 ML PEN 66 UNITS SC (20:10)
[2024-04-13] MEDS: DULoxetine 30 MG CAP PO (20:14)
[2024-04-13] MEDS: Bimatoprost 0.01% 2.5 ML BTL OP (20:16)
[2024-04-13] MEDS: traZODone 50 MG TAB PO (20:18)
[2024-04-14] VITALS (22 sets, daily range): BP systolic 89–123; BP diastolic 37–72; PULSE 60–116; RESP 3–26; TEMP 36.3–37; O2SAT 90–98
[2024-04-14] MEDS: Levalbuterol 1.25 MG/3 ML UPD VIAL UPD (02:21)
[2024-04-14 06:44] LABS: Abs Immature Grans 0.03 10^3/uL (0.0-0.06); Absolute Basophil Count 0.08 10^3/uL (0.0-0.2); Absolute Eosinophil Count 0.57 10^3/uL (0.0-0.7); Absolute Lymphocyte Count 1.38 10^3/uL (1.2-3.4); Absolute Monocyte Count 0.64 10^3/uL (0.1-0.8); Absolute Neutrophil Count 8.87 10^3/uL (1.2-6.7); Basophils % 0.7 %; Eosinophils % 4.9 %; HCT 30.6 % (36.0-46.0); HGB 10.1 g/dL (11.2-15.7); Immature Grans % 0.3 %; Lymphocytes % 11.9 %; MCH 31.1 pg (27.0-33.0); MCV 94 fL (80-95); MPV 11.7 fL (8.0-11.0); Monocytes % 5.5 %; Neutrophils % 76.7 %; Platelet Count 289 10^3/uL (130-400); RBC 3.25 10^6/uL (3.93-5.22); RDW 13.2 % (11.7-14.6); RDW-SD 45.3 fL; WBC 11.57 10^3/uL (4.4-10.8)
[2024-04-14 06:58] LABS: ALT 25 U/L (14-59); AST 15 U/L (15-37); Albumin 2.6 g/dL (3.4-5.0); Alkaline Phosphatase 124 U/L (46-116); BUN 50 mg/dL (7-18); Bilirubin, Total 0.57 mg/dL (0.2-1.0); CREATININE 1.7 mg/dL (0.55-1.02); Chloride 100 mmol/L (98-107); Glucose 148 mg/dL (74-106); Potassium 4.1 mmol/L (3.5-5.1); Sodium 137 mmol/L (136-145); Total Protein 6.8 g/dL (6.4-8.2)
[2024-04-14] MEDS: Tiotropium/Olodaterol 10 PUFF INHALER 2 PUFF IH (07:43)
[2024-04-14] MEDS: Insulin Aspart 300 UNITS/3 ML PEN SC ×3 (07:57→17:40)
[2024-04-14] MEDS: Apixaban 5 MG TAB PO ×2 (08:12→20:24)
[2024-04-14] MEDS: Atorvastatin 40 MG TAB 80 MG PO (08:12)
[2024-04-14] MEDS: dilTIAZem 30 MG TAB PO ×2 (08:12→09:09)
[2024-04-14] MEDS: glipiZIDE 5 MG TAB PO (08:13)
[2024-04-14] MEDS: Magnesium Oxide 400 MG TAB 800 MG PO ×2 (08:13→20:17)
[2024-04-14] MEDS: Sucralfate 1 GM TAB PO ×4 (08:13→20:18)
[2024-04-14] MEDS: Metoprolol 50 MG TAB 100 MG PO ×2 (08:13→20:19)
--- NOTE | 2024-04-14 10:49 | W.PM.PROGNOT ---
Date of Service Date of service: 04/14/24 Time of Service: 10:49 Assessment and Plan Assessment and plan (1) Atrial fibrillation with rapid ventricular response: Status: Acute Assessment and plan: -Patient presented with tachycardia signs consistent with A-fib RVR -Was given additional doses of p.o. and IV Lopressor overnight in addition to her home dose of 25 mg p.o. twice daily Toprol XL -Currently on 100 mg p.o. Lopressor twice daily -Heart rates remain elevated and blood pressures decreased to low 100s systolic -Appreciate cardiology consultation; recommendation to uptitrate p.o. metoprolol and only hold if patient develops symptomatic hypotension 1.10.24 pt still with significant elevations in her HR. Will also investigate other causes of afib such as infection/hyperthyroidism. Pt does have mild anemia which could be contributing a minor roll. Wonder if cardizem would be beneficial, will reach out to cards .02.25 Unfortunately was not able to connect with Dr. Tompkins yesterday. Will start on low dose cardizem and monitor bp and hr. Possible downgrade to med-surg later today .. Pt does appear to be responding to combined cardizem and lopressor. Will increase cardizem dose to see if we can get under 100 consistently. Pt is already on eliquis (2) CHF (congestive heart failure): Status: Chronic Assessment and plan: -Patient has documented history of heart failure, and this may be driving her A-fib RVR at this time -Cardiology recommended gentle diuresis and will reinitiate IV equivalent of patient's p.o. outpatient Lasix she is 60 mg p.o. daily -Will obtain echocardiogram once rate allows 1.110.24 Still awaiting echo, pt HR remains elevated ..25 PT did have her echo and I will place below Patient Name: Jessa Adame EXAM: Comprehensive 2D, Doppler, and color-flow Echocardiogram Patient Location: In-Patient Room/Bed: [facility] Professor: Leo Benson RDCS (AE) Indications: BNP = 8000 without CHF dx Other Information Study Quality: Technically Limited. Technically limited study due to body habitus, inability to position patient. Conclusion Technically difficult study Left ventricle appears grossly normal in size and wall thickness. Ejection fraction is estimated at 50%. No segmental wall motion abnormalities are identified Normal right ventricular size and function Both atria are moderately enlarged There is a bioprosthetic aortic valve replacement. There is no significant gradient, no aortic regurgitation Thickened mitral leaflets. Mild mitral regurgitation Mild tricuspid regurgitation. Estimated right ventricular systolic pressure is 52 mmHg (3) COPD (chronic obstructive pulmonary disease): Status: Chronic Assessment and plan: -Patient likely has sleep apnea (obesity/hypoventilation.) -Is contributing factor in her A-fib and heart failure (4) Cardiac pacemaker in situ: Assessment and plan: as above in subjective. Unfortunately, the pt does not remember the name of her Healthcare Interpreter in [place]. Will try to discuss with the family to see if we can get a name/hospital/history (5) Elevated BUN: Status: Acute Assessment and plan: PT does have an elevated BUN/Cr ratio which could indicate GI Bleed vs dehydration. Will hem check stool and encourage fluid intake 04.14.24 Hem check pending Subjective Subjective Interval history since last seen: Pt seen and examined in her room this AM. Pt states that she is feeling much better. NS noted that the pt did have her echo on 04/12/24. POC d/w pt and bedside nurse during ICU huddle Exam Narrative Exam Narrative: Well-appearing female laying in bed in no acute distress, ANO x 4, heart irregularly irregular rates in the 100-120's, lungs clear to auscultation bilaterally, abdomen soft, nontender, nondistended\ no bilat JAZMÍN Objective Last Vital Signs Temp 37.0 C 04/14/24 08:49 Pulse 114 H 04/14/24 08:49 Resp 20 04/14/24 08:49 BP 117/63 04/14/24 08:49 Pulse Ox 93 04/14/24 08:49 Laboratory Results - last 24 hr 04/14/24 05:52 WBC 11.57 H RBC 3.25 L Hgb 10.1 L Hct 30.6 L MCV 94 MCH 31.1 MCHC 33.0 RDW 13.2 Plt Count 289 MPV 11.7 H Immature Gran % 0.3 Neutrophils % 76.7 Lymphocytes % 11.9 Monocytes % 5.5 Eosinophils % 4.9 Basophils % 0.7 Nucleated RBC % 0.0 Absolute Neutrophils 8.87 H Absolute Lymphocytes 1.38 Absolute Monocytes 0.64 Absolute Eosinophils 0.57 Absolute Basophils 0.08 Sodium 137 Potassium 4.1 Chloride 100 Carbon Dioxide 30.0 Anion Gap 7.0 BUN 50 H Creatinine 1.7 H Est GFR (CKD-EPI 2020) 30.50 Glucose 148 H Calcium 9.0 Total Bilirubin 0.57 AST 15 ALT 25 Alkaline Phosphatase 124 H Total Protein 6.8 Albumin 2.6 L Time Spent with Patient Time Spent with Patient: 25-34 minutes Time was spent: preparing to see the patient(eg.review tests), ordering medications,tests, procedures, referring, communicating with other health transitional care nurse, indepentently interpreting results, counseling the patient and care coordination
--- NOTE | 2024-04-14 10:54 | NUR.NOTE ---
Report is given to [facility] Surgical Nurse, Juany Jackman RN. Patient is placed in a wheelchair and is brought to Med Surg.Nursing Note:
--- NOTE | 2024-04-14 11:03 | PTTR_ITS ---
PT Notes Visit Reasons: afib with RVR Inpatient Physical Therapy Treatment Note [facility] Date: 04/14/2024 PRECAUTIONS: Telemetry, IV access, standard precautions oxygen 2 L/min SUBJECTIVE: Patient reports she is having visitors later this morning so you will nap in the afternoon. OBJECTIVE: Alert female smiling with oxygen at 2 L/min . Nurse reports low sats over night requiring supplemental oxygen. Pt agreeable to participate. Patient is extremely hard of hearing ( has a hearing aide but it is not charged)? PAIN: Patient denied pain in back this session. VITALS: ?Monitored throughout via telemetry by nursing. Orthostatic vitals listed below Therapeutic Activities (20388): Direct one-on-one instruction in dynamic activities to improve functional performance. ? BED MOBILITY/TRANSFERS? Provided skilled cues and instruction on performance and technique throughout. Sit to stand x 8trials standby assist with 1 cue to push up from surface Stand to sit x 8 trials standby assist cues to reach back Surface to surface transfers with FWW standby assist. Services included chair, bed ,commode, recliner, wheelchair Ambulation: Facilitated safe and correct performance of level surface ambulation covering a distance of 15 feet x3 using use front wheeled walker with standby assist and assistance for tubing management.. Did not report of any increased pain. Denied headache, chest pain, and lightheadedness throughout activity. Minimal verbal cueing provided for AD management, directional changes, and posture. ASSESSMENT: Patient was moved during session to Med Surg unit with Nurse Harrington. Pt able to perform multiple transfers and short distance ambulation. Pt continues to decline walking >15 feet for transfer purposes stating she does not walk when she is at home. PLAN: 1-2x/day, 7 days/week x 1 week. Plan of care has been reviewed with the ASSISTANT PROFESSOR OF SOCIOLOGY providing the service under Physical Therapy direction. Initiate Physical Therapy intervention for strengthening, bed mobility, transfers, gait, stairs, balance training, use of assistive device. TREATMENT CODE/TIME: 87352 x2 units /[id number] DISCHARGE RECOMMENDATION: Home with HH PT when medically stable
--- NOTE | 2024-04-14 11:29 | W.PC.ACHO ---
Registration Status: Primary Language: Preferred Language: ED Information & Data Chief Complaint SOB 04/10/24 18:25 Triage Note 2 days ago, weakness, sob, 04/10/24 16:36 coughing, fell2 days ago and hit face on ground Medical / Surgical History (Last Updated 04/11/24 @ 10:43 by Marylin Tompkins MD) Loose left total knee arthroplasty HTN (hypertension) Contusion of toe, left Dermal mycosis Thyroid nodule Diabetic peripheral neuropathy Vitamin D deficiency Hyperparathyroidism HLD (hyperlipidemia) Obesity Anemia Leukocytosis Depressive disorder GERD (gastroesophageal reflux disease) Cellulitis Stress incontinence Afib Diabetes Cardiac pacemaker in situ Anxiety (Last Reviewed 04/11/24 @ 10:41 by Marylin Tompkins MD) S/P AVR Hx of CABG Most Recent Vital Signs Temperature 36.3 C L 04/14/24 10:54 Temperature Source Temporal Artery Scan 04/14/24 10:54 Pulse 68 04/14/24 10:54 Pulse Rhythm Irregular 04/10/24 23:27 Pulse 101 H 04/14/24 08:01 Respiratory Rate 24 04/14/24 10:54 Respiratory Effort Non-Labored 04/11/24 03:06 Respiratory Depth Normal 04/11/24 03:06 Respiratory Pattern Normal 04/11/24 03:06 Blood Pressure 91/55 L 04/14/24 10:54 Blood Pressure Mean 85 04/14/24 08:01 Blood Pressure Position Left Lateral 04/11/24 03:06 Pulse Oximetry 95 04/14/24 11:06 Oxygen Delivery Method Room Air 04/14/24 11:06 Oxygen Flow Rate 0 04/14/24 11:06 Pain Level 0 04/14/24 10:54 Comment Standing 04/13/24 11:49 Allergies gabapentin Allergy (Unverified 04/10/24 22:45) Unknown pantoprazole Allergy (Unverified 04/10/24 22:45) Unknown semaglutide (From Ozempic) Allergy (Unverified 04/10/24 22:45) Unknown Active Medications Generic Name Dose Route Start Last Admin Trade Name Freq PRN Reason Stop Dose Admin Acetaminophen 650 mg 04/13/24 04:47 04/13/24 11:46 Acetaminophen 325 Mg Tab PO 650 mg Q6H PRN PRN Administration Apixaban 5 mg 04/11/24 08:30 04/14/24 08:12 Apixaban 5 Mg Tab PO 5 mg BID RONALD Administration Atorvastatin Calcium 80 mg 04/11/24 08:30 04/14/24 08:12 Atorvastatin 40 Mg Tab PO 80 mg DAILY RONALD Administration Bimatoprost 0 ml 04/11/24 20:00 04/13/24 20:16 Bimatoprost 0.01% 2.5 Ml Btl OP 1 drp QPM RONALD Administration Duloxetine HCl 30 mg 04/12/24 20:00 04/13/24 20:14 Duloxetine 30 Mg Cap PO 30 mg QPM RONALD Administration Famotidine 10 mg 04/11/24 08:30 04/13/24 08:44 Famotidine 20 Mg Tab PO 10 mg Q48H RONALD Administration Glipizide 5 mg 04/13/24 07:30 04/14/24 08:13 Glipizide 5 Mg Tab PO 5 mg DAILY@0730 RONALD Administration Insulin Aspart 0 units 04/11/24 12:00 04/14/24 07:57 Insulin Aspart 300 Units/3 Ml Pen SC 2 units 0800,1200,1700 RONALD Administration Protocol Insulin Glargine 66 units 04/11/24 20:00 04/13/24 20:10 Insulin Glargine 300 Units/3 Ml Pen SC 66 units QPM RONALD Administration Levalbuterol HCl 1.25 mg 04/11/24 03:16 04/14/24 02:21 Levalbuterol 1.25 Mg/3 Ml Upd Vial UPD 1.25 mg Q6H PRN PRN Administration Magnesium Oxide 800 mg 04/11/24 08:30 04/14/24 08:13 Magnesium Oxide 400 Mg Tab PO 800 mg BID ORNALD Administration Metoprolol Tartrate 100 mg 04/11/24 20:00 04/14/24 08:13 Metoprolol 50 Mg Tab PO 100 mg BID RONALD Administration Sodium Chloride 0 ml 04/12/24 22:32 04/13/24 17:05 Normal Saline Flush 10 Ml Syr IVP 30 ml PRN PRN Administration Sucralfate 1 gm 04/11/24 07:30 04/14/24 08:13 Sucralfate 1 Gm Tab PO 1 gm AC & HS RONALD Administration Tiotropium [place]/Olodaterol 2 puff 04/11/24 08:30 04/14/24 07:43 Tiotropium/Olodaterol 10 Puff Inhaler IH 2 inh DAILY RONALD Administration Trazodone HCl 50 mg 04/13/24 20:00 04/13/24 20:18 Trazodone 50 Mg Tab PO 50 mg HS RONALD Administration IV IV Catheter Type [Left Saline Lock Antecubital] IV Catheter Type [Right Hand] Saline Lock IV Catheter Gauge [Left 18 Antecubital] IV Catheter Gauge [Right Hand] 20 Diagnostics 04/14/24 Range/Units 05:52 WBC 11.57 H (4.4-10.8) 10^3/uL RBC 3.25 L (3.93-5.22) 10^6/uL Hgb 10.1 L (11.2-15.7) g/dL Hct 30.6 L (36.0-46.0) % MCV 94 (80-95) fL MCH 31.1 (27.0-33.0) pg MCHC 33.0 (32.0-36.0) % RDW 13.2 (11.7-14.6) % Plt Count 289 (130-400) 10^3/uL MPV 11.7 H (8.0-11.0) fL Immature Gran % 0.3 % Neutrophils % 76.7 % Lymphocytes % 11.9 % Monocytes % 5.5 % Eosinophils % 4.9 % Basophils % 0.7 % Nucleated RBC % 0.0 (0.0-0.3) % Absolute Neutrophils 8.87 H (1.2-6.7) 10^3/uL Absolute Lymphocytes 1.38 (1.2-3.4) 10^3/uL Absolute Monocytes 0.64 (0.1-0.8) 10^3/uL Absolute Eosinophils 0.57 (0.0-0.7) 10^3/uL Absolute Basophils 0.08 (0.0-0.2) 10^3/uL Sodium 137 (136-145) mmol/L Potassium 4.1 (3.5-5.1) mmol/L Chloride 100 (98-107) mmol/L Carbon Dioxide 30.0 (21.0-32.0) mmol/L Anion Gap 7.0 (3-11) mmol/L BUN 50 H (7-18) mg/dL Creatinine 1.7 H (0.55-1.02) mg/dL Est GFR (CKD-EPI 2020) 30.50 (mL/min/1.73m2) Glucose 148 H (74-106) mg/dL Calcium 9.0 (8.5-10.1) mg/dL Total Bilirubin 0.57 (0.2-1.0) mg/dL AST 15 (15-37) U/L ALT 25 (14-59) U/L Alkaline Phosphatase 124 H (46-116) U/L Total Protein 6.8 (6.4-8.2) g/dL Albumin 2.6 L (3.4-5.0) g/dL 04/13/24 19:31 Stl Occult Blood Screen Specimen 3 - Pending Stool Juwkh-vl-Doms Documentation Fingerstick Glucose Start: 04/11/24 03:27 Freq: .ACHS Status: Active Protocol: Activity Type Activity Date Activity User E-sign Co-sign Detail Recorded Client Recorded Date Recorded By Document 04/11/24 07:41 BKG DAEMON(5) NVT-BG05 04/11/24 07:42 BKG DAEMON(6) Fingerstick Glucose Start: 04/11/24 08:55 Freq: .ACHS Status: Active Protocol: Activity Type Activity Date Activity User E-sign Co-sign Detail Recorded Client Recorded Date Recorded By Document 04/14/24 11:25 BKG DAEMON(7) NVT-BG05 04/14/24 11:27 BKG DAEMON(8) Intake and Output - 24 Hour Total 04/10/24 16:24 thru 04/14/24 09:07 Intake Total 3880 Output Total 6175 Balance -2295 Weight 100.2 kg Intake: IV 20 Oral 3860 Output: Urine 6175 Other: Urine Color Yellow Urine Appearance Cloudy Urine Odor Strong Comment mixed in stood Stool Occult Blood Negative Stool Size Small Stool Characteristics Formed Brown Urinary Catheter Urinary Catheter Date of 04/11/24 Insertion [External Female Catheter] Time of insertion [External 11:36 Female Catheter] Falls Risk Assessment History of Falls No History 04/11/24 03:06 Contributing Factors Impairments,Incontinence 04/11/24 03:06 Ambulatory Aids Uses ambulatory device + 04/11/24 03:06 Tubes/Lines W/no contributing factors 04/11/24 03:06 Gait Evaluation W/no contributing factors 04/11/24 03:06 Cognition No cognitive impairment 04/11/24 03:06 Fall Total Score 56 04/11/24 03:06 Level of Risk High Risk 04/11/24 03:06 Problems (Last Updated 04/11/24 @ 10:43 by Marylin Tompkins MD) Elevated BUN (Acute) CHF (congestive heart failure) (Chronic) Atrial fibrillation with rapid ventricular response (Acute) COPD (chronic obstructive pulmonary disease) (Chronic) Type 2 diabetes mellitus without complications (Acute) Notes 04/14/24 10:54 Nursing Notes by Chi Barbosa Report is given to Med Surgical Nurse, Juany Jackman RN. Patient is placed in a wheelchair and is brought to Med Surg.Nursing Note: Initialized on 04/14/24 10:54 - END OF NOTE 04/11/24 03:32 Nursing Notes by Mallory Shepherd Nursing Note: At 0155 Dr. Guillory up to assess pt. At this time pt HR still irregular and tachy as seen on tele. BP still soft see VS notes. Unable to give ordered PO metoprolol due to parameters. Decision was made to transfer pt to ICU. Report given to [facility] ICU nurse and pt transferred w/ all belongings. Initialized on 04/11/24 03:32 - END OF NOTE v v v v v v v v v Sending and/or Receiving Nurses: Please use comment section below to note any information pertinent to the patient hand-off not included above. Information / Comments: Report received from: HORACIO Mireles in ICU at 1014 on 04/14/2024 and arrived 1051 via w/c and oxygen
[2024-04-14] MEDS: Bimatoprost 0.01% 2.5 ML BTL OP (20:15)
[2024-04-14] MEDS: Normal Saline Flush 10 ML SYR IVP (20:16)
[2024-04-14] MEDS: dilTIAZem 30 MG TAB 60 MG PO (20:17)
[2024-04-14] MEDS: traZODone 50 MG TAB PO (20:18)
[2024-04-14] MEDS: Acetaminophen 325 MG TAB 650 MG PO (20:18)
[2024-04-14] MEDS: Docusate Sodium 100 MG CAP PO (20:19)
[2024-04-14] MEDS: DULoxetine 30 MG CAP PO (20:19)
[2024-04-14] MEDS: Insulin Glargine 300 UNITS/3 ML PEN 66 UNITS SC (23:00)
[2024-04-15 04:05] VITALS: BP 100/67; PULSE 109; RESP 16; TEMP 36.7; O2SAT 96
[2024-04-15 06:31] LABS: Abs Immature Grans 0.06 10^3/uL (0.0-0.06); Absolute Basophil Count 0.06 10^3/uL (0.0-0.2); Absolute Lymphocyte Count 1.96 10^3/uL (1.2-3.4); Absolute Monocyte Count 0.88 10^3/uL (0.1-0.8); Basophils % 0.5 %; Eosinophils % 4.9 %; HCT 32.4 % (36.0-46.0); HGB 10.7 g/dL (11.2-15.7); Immature Grans % 0.5 %; Lymphocytes % 17.3 %; MCV 94 fL (80-95); MPV 11.7 fL (8.0-11.0); Monocytes % 7.8 %; Platelet Count 333 10^3/uL (130-400); RBC 3.45 10^6/uL (3.93-5.22); RDW 13.3 % (11.7-14.6); RDW-SD 45.3 fL; WBC 11.32 10^3/uL (4.4-10.8)
[2024-04-15 06:36] LABS: Absolute Eosinophil Count 0.55 10^3/uL (0.0-0.7); Absolute Neutrophil Count 7.81 10^3/uL (1.2-6.7)
[2024-04-15 06:43] LABS: ALT 25 U/L (14-59); AST 15 U/L (15-37); Albumin 2.7 g/dL (3.4-5.0); Alkaline Phosphatase 127 U/L (46-116); Anion Gap 6.2 mmol/L (3-11); BUN 48 mg/dL (7-18); Bilirubin, Total 0.56 mg/dL (0.2-1.0); CO2 30.8 mmol/L (21.0-32.0); CREATININE 1.6 mg/dL (0.55-1.02); Calcium 8.9 mg/dL (8.5-10.1); Chloride 103 mmol/L (98-107); Estimated GFR 32.81 (mL/min/1.73m2); Glucose 62 mg/dL (74-106); Potassium 4.1 mmol/L (3.5-5.1); Sodium 140 mmol/L (136-145); Total Protein 7.2 g/dL (6.4-8.2)
[2024-04-15] MEDS: Atorvastatin 40 MG TAB 80 MG PO (08:20)
[2024-04-15] MEDS: dilTIAZem 30 MG TAB 60 MG PO ×2 (08:20→13:28)
[2024-04-15] MEDS: glipiZIDE 5 MG TAB PO (08:20)
[2024-04-15] MEDS: Sucralfate 1 GM TAB PO ×2 (08:20→11:53)
[2024-04-15] MEDS: Famotidine 20 MG TAB 10 MG PO (08:20)
[2024-04-15] MEDS: Metoprolol 50 MG TAB 100 MG PO (08:22)
[2024-04-15] MEDS: Magnesium Oxide 400 MG TAB 800 MG PO (08:22)
[2024-04-15 08:24] VITALS: BP 100/78; PULSE 110; RESP 20; TEMP 36.6; O2SAT 94
[2024-04-15] MEDS: Apixaban 5 MG TAB PO (08:24)
[2024-04-15] MEDS: Tiotropium/Olodaterol 10 PUFF INHALER 2 PUFF IH (08:25)
[2024-04-15 08:26] VITALS: O2SAT 92
[2024-04-15 08:33] VITALS: BP 100/78; PULSE 110; RESP 16; TEMP 36.6; O2SAT 95
--- NOTE | 2024-04-15 09:43 | PT.INTREAT ---
PT Notes Visit Reasons: afib with RVR Inpatient Physical Therapy Treatment Note [facility] Date: 04/15/24 PRECAUTIONS:Telemetry, IV access, standard precautions. SUBJECTIVE: Jessa reports that she is doing better. Is willing to participate in PT if I have to. PM session: I am going home. The van is on its way. OBJECTIVE: []? PAIN: no complaints VITALS: ?monitored by nursing. No supplemental oxygen today Therapeutic Activities (03965h3): Direct one-on-one instruction in dynamic activities to improve functional performance. ? pt seated in recliner.? Sit-stand: CGA/SBA ? Stand-sit:SBA? Provided skilled cues to reach back for arm of chair prior to sitting. GAIT? Assistive Device:FWW? Weight bearing: AT Assist: CGA/SBA? Distance:? approx 20' x2.? Deviation: slow tracy.? Pt toileted. Required assistance for walker care. ? Therapeutic Exercises (47447s9): Direct one-on-one instruction in therapeutic exercises to develop strength, endurance, range of motion and flexibility. ? Exercises ?LAQ, seated june, AP 2x10 ea. SLR, hip abd/add x10 ea. ? ? ? sit to stand x3 with CGA? Provided skilled instruction in proper exercise performance ASSESSMENT:? tolerated session well. Sounds like she was a little more motivated today compared to previous sessions. No LOB or fatigue noted during ambulation. She did report fatigue in legs during her ther ex routine this am. PLAN: Jessa is being d/c to home with . TREATMENT CODE/TIME: 25 min. [id number], [id number]
--- NOTE | 2024-04-15 11:22 | DSE_ITS ---
Date of service: 04/15/24 Time of Service: 11:22 DS: Diagnosis Discharge Diagnosis (1) Atrial fibrillation with rapid ventricular response: Status: Acute (2) CHF (congestive heart failure): Status: Chronic (3) COPD (chronic obstructive pulmonary disease): Status: Chronic (4) Cardiac pacemaker in situ: (5) Elevated BUN: Status: Acute Discharge Plan Disposition Patient Disposition: Home Condition: Stable Discharge Details Reason For Visit: afib with RVR Admit Date/Time: 04/10/24 22:53 Admit Provider: Abel Guillory Attending Provider: Abel Guillory Primary Care Provider: Zeus Hebert Hospital Course Hospital Course: This is a 78-year-old female who was admitted to the hospital service for A-fib with RVR. The patient was admitted on 10 April after being evaluated in the emergency department. Originally she was in the ICU for IV titration of medications for RVR. Patient slowly improved and was downgraded to the floor. At the time of discharge she is on metoprolol as well as Cardizem. The patient is on Eliquis already for her history of A-fib. Consultation from cardiology was placed and there is a note from Dr. Tompkins that is available for review. Patient very anxious to go home and on her last physical therapy evaluation doing quite well. Patient will need follow-up in the outpatient setting with her child care counselor. No other cause was found for her A-fib such as infection or hyperthyroidism. The patient did get an echocardiogram and I will attach the read to the bottom of this document. Conclusion Technically difficult study Left ventricle appears grossly normal in size and wall thickness. Ejection fraction is estimated at 50%. No segmental wall motion abnormalities are identified Normal right ventricular size and function Both atria are moderately enlarged There is a bioprosthetic aortic valve replacement. There is no significant gradient, no aortic regurgitation Thickened mitral leaflets. Mild mitral regurgitation Mild tricuspid regurgitation. Estimated right ventricular systolic pressure is 52 mmHg While she was here she also did get a chest CT chest x-ray head CT which were all available for review. Of note, I did increase the patient's Cardizem to 90 mg p.o. 3 times daily as well as continue her metoprolol to 100 mg p.o. twice daily. Considering that the patient is somewhat hypotensive I did hold her SUNSHINE inhibitor and this will need to be introduced in the outpatient setting. The patient does have a history of diabetes. My concern would be 3 antihypertensive medications would cause her to get to a point where she would not tolerate medications for her A- fib with RVR. I have recommended follow-up with her PCP as well as with cardiology Home Meds and New Rx's Prescriptions: New metoprolol tartrate 50 mg Tablet 100 mg PO BID Qty: 60 0RF diltiazem HCl 30 mg Tablet 90 mg PO TID Qty: 90 0RF Lumigan 0.01 % Drops 1 drp ophthalmic (eye) QPM Qty: 2.5 0RF Continued sucralfate 1 gram tablet 1 g PO QID albuterol sulfate 90 mcg/actuation HFA aerosol inhaler 2 puff inhalation Q6H PRN (Reason: shortness of breath or wheezing) Qty: 8.5 12RF atorvastatin 80 mg tablet 80 mg PO DAILY duloxetine 30 mg capsule,delayed release(DR/EC) 30 mg PO QPM Eliquis 5 mg tablet 5 mg PO BID glipizide 5 mg tablet 5 mg PO DAILY insulin glargine [Lantus Solostar U-100 Insulin] 100 unit/mL (3 mL) insulin pen 66 unit subcut QPM Lumigan 0.01 % drops 1 drp ophthalmic (eye) QPM insulin aspart U-100 [Novolog FlexPen U-100 Insulin] 100 unit/mL (3 mL) insulin pen 10 unit subcut TID Stiolto Respimat 2.5-2.5 mcg/actuation mist 2 puff inhalation DAILY trazodone 50 mg tablet 50 mg PO DAILY furosemide 40 mg tablet 60 mg PO DAILY Ozempic 0.25 mg or 0.5 mg (2 mg/3 mL) pen injector 0.25 mg SUBCUT .weekly Patient Comments: 04/11/24 - has not started yet per patient Discontinued lisinopril 2.5 mg tablet 2.5 mg PO DAILY metoprolol tartrate 25 mg tablet 25 mg PO BID No Action famotidine 20 mg tablet 20 mg PO DAILY Discharge Instructions Stand Alone Forms: Nursing Discharge Form Referrals: Marylin Tompkins MD [ [facility] STAFF PHYSICIAN] - (follow up in 5-7 days) Zeus Hebert [Primary Care Provider] - 04/18/24 9:00 am (Please call the office to make a hospital follow up within 7-10 days. ) Activity:: Activity as Tolerated Equipment/Supplies:: No Equipment Needed Diet:: As Tolerated Discharge Orders Discharge Orders: Discharge Order (Routine); Ordered 04/15/24 Ordered By: Andre Alvarado DS: Summary Time Spent with Patient providing and/or coordinating discharge services: Greater than 30 minutes Status at Discharge Functional status at discharge: independent ambulation Overall status at discharge: patient is progressing back to baseline Mental Status: mental status grossly normal Speech and Movement: speech and movement normal Mood: congruent mood Affect: normal affect Quality:SDOH Health Related Social Needs: Health related social needs housing instability, house d, with risk of jazzmine elessness (Z59.811), education (Z55.6) Exam Psych Mental Status: mental status grossly normal Speech and Movement: speech and movement normal Mood: congruent mood Affect: normal affect DS: Data Vitals/I&O Vitals and I&O: Vital Signs Temperature 36.6 C 04/15/24 08:33 Temperature Source Temporal Artery Scan 04/15/24 08:33 Pulse 110 H 04/15/24 08:33 Pulse Rhythm Irregular 04/10/24 23:27 Pulse 101 H 04/14/24 08:01 Respiratory Rate 16 04/15/24 08:33 Respiratory Effort Non-Labored 04/11/24 03:06 Respiratory Depth Normal 04/11/24 03:06 Respiratory Pattern Normal 04/11/24 03:06 Blood Pressure 100/78 04/15/24 08:33 Blood Pressure Mean 85 04/14/24 08:01 Blood Pressure Position Left Lateral 04/11/24 03:06 Pulse Oximetry 95 04/15/24 08:33 Oxygen Delivery Method Room Air 04/15/24 08:33 Oxygen Flow Rate 0 04/15/24 08:33 Pain Level 0 04/15/24 08:33 Comment right arm 64/20 04/14/24 13:50 Comment Standing 04/13/24 11:49 Intake & Output 04/14/24 04/14/24 04/15/24 11:59 23:59 11:59 Intake Total 240 / 900 660 / 900 500 / 500 Output Total 775 / 1325 550 / 1325 900 / 900 Balance -535 / -425 110 / -425 -400 / -400 Weight 99.7 kg Intake: Oral 240 / 900 660 / 900 500 / 500 Output: Urine 775 / 1325 550 / 1325 900 / 900 Other: Urine Color Yellow Yellow Yellow Urine Appearance Cloudy Clear Clear Urine Odor Strong Normal None Stool Size Large Stool Characteristics Formed Hard Data Completed and Pending Labs on day of discharge: Labs from last 24 hours 04/15/24 06:00 WBC 11.32 H RBC 3.45 L Hgb 10.7 L Hct 32.4 L MCV 94 MCH 31.0 MCHC 33.0 RDW 13.3 Plt Count 333 MPV 11.7 H Immature Gran % 0.5 Neutrophils % 69.0 Lymphocytes % 17.3 Monocytes % 7.8 Eosinophils % 4.9 Basophils % 0.5 Nucleated RBC % 0.0 Absolute Neutrophils 7.81 H Absolute Lymphocytes 1.96 Absolute Monocytes 0.88 H Absolute Eosinophils 0.55 Absolute Basophils 0.06 Sodium 140 Potassium 4.1 Chloride 103 Carbon Dioxide 30.8 Anion Gap 6.2 BUN 48 H Creatinine 1.6 H Est GFR (CKD-EPI 2020) 32.81 Glucose 62 L Calcium 8.9 Total Bilirubin 0.56 AST 15 ALT 25 Alkaline Phosphatase 127 H Total Protein 7.2 Albumin 2.7 L PFSH All Active Problems (Updated 04/13/24 @ 08:20 by Ander Alvarado MD) Elevated BUN (Acute) CHF (congestive heart failure) (Chronic) Atrial fibrillation with rapid ventricular response (Acute) COPD (chronic obstructive pulmonary disease) (Chronic) Type 2 diabetes mellitus without complications (Acute) Hypoxia (Acute) Chronic obstructive pulmonary disease with (acute) exacerbation (Acute) Medical History (Updated 04/13/24 @ 08:20 by Andre Alvarado MD) Loose left total knee arthroplasty HTN (hypertension) Contusion of toe, left Dermal mycosis Thyroid nodule Diabetic peripheral neuropathy Vitamin D deficiency Hyperparathyroidism HLD (hyperlipidemia) Obesity Anemia Leukocytosis Depressive disorder GERD (gastroesophageal reflux disease) Cellulitis Stress incontinence Afib Diabetes Cardiac pacemaker in situ Anxiety Surgical History 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
[2024-04-15] MEDS: Insulin Aspart 300 UNITS/3 ML PEN SC (11:52)
[2024-04-15 11:53] VITALS: BP 104/58; PULSE 96; RESP 16; TEMP 36.4; O2SAT 96
--- NOTE | 2024-04-15 11:59 | CMDISCH_ITS ---
Date of service: 04/15/24 Time of Service: 11:59 LACE Index Scoring Tool Questions: Length of Stay (in days): 4 - 6 Was the patient admitted via the E.D.?: Yes Comorbidities: Diabetes w/o Complication, Congestive Heart Failure and Chronic Pulmonary Disease E.D. Visits: 2 Answers: Total Score: 14 Risk of Readmission: High Risk Care Management Discharge Plan Reason for Hospitalization: fatigue- found to be in afib with rapid ventricular response Discharge Plan: Jessa will be discharged home this afternoon with new orders to increase her metoprolol dosing, and increase the frequency of her diltiazem. She will also have new orders for HH RN and PT. Jessa will transport home via [facility] wheel chair van as coordinated by CM. She will f/u with her PCP on 04/18, and will also f/u with the social organization professor. [facility] [place] [facility] was notified by CM to resume Me[facility] Wheels tomorrow, and [facility] ride for PCP f/u was also set up by CM. Patient/Family Education Needs: Review of discharge instructions, new medication dosing, activity, limitations, f/u plan and discuss ask me 3. Services Needed at Discharge: Home Health Care Services (new HH RN and PT) SDOH Health Related Social Needs: Health related social needs housing instability, house d, with risk of homelessness (Z59.811), education (Z55.6)
--- NOTE | 2024-04-15 12:02 | PDOC.HHF2F ---
Home Health Referral Home Health Orders Clinical synopsis of why skilled professionals are needed: afib with rvr and hypotension Medical diagnosis necessitation home health referral: afib with rvr Registered Nurse: Check all that apply Assess for exacerbation of medical condition, instruct patient/caregivers on signs and symptoms to report for early detection: Ordered Physical Therapist: Check all that apply Increase strength & endurance for safe mobility at home: Ordered To design/establish home maintenance program: Ordered Fall reduction therapy program for patient with history of frequent falls: Ordered Home safety evaluation and teaching/gait training including stair management (if applicable): Ordered Occupational Therapist: Evaluate and treat for patient unable to perform ADL/IADL/self-care: Ordered Upper extremity strengthening, range and motion: Ordered Encounter Date and Reason: I certify that a FTF encounter for this patient was performed on April 15, 2024 and that such encounter was related to the primary reason the patient requires home health services. The encounter was conducted in the following manner: By me as the certifying physician, HEAD STILL OPERATOR, PA or By an inpatient physician, HEAD STILL OPERATOR or PA during an inpatient stay who communicated findings to me, Certification And Authentication I certify that I composed the above information based on my clinical judgment relating to this patient's medical condition and, if applicable, clinical findings communicated to me by the NPP or inpatient physician who performed the FTF encounter. Name of Provider that will be monitoring home health services: Andre Alvarado
== END 2024-04-15 14:00 | disposition home or self-care (01) | DRG 292 ==
LOC: ER 16:46 → MS 23:24 → ICU 04-11 02:14 → MS 04-14 10:57
PROVIDERS: Hospitalist; Admitting Provider Emergency Medicine; Emergency Provider Student in an Organized Health Care Education/Training Program; PCP Student in an Organized Health Care Education/Training Program; Visit Provider Emergency Medicine
DX: I11.0 Hypertensive heart disease with heart failure (principal); Z68.41 Body mass index [BMI] 40.0-44.9, adult; I48.91 Unspecified atrial fibrillation; E11.42 Type 2 diabetes mellitus with diabetic polyneuropathy; E55.9 Vitamin D deficiency, unspecified; E78.5 Hyperlipidemia, unspecified; E66.9 Obesity, unspecified; D64.9 Anemia, unspecified; F32.A Depression, unspecified; K21.9 Gastro-esophageal reflux disease without esophagitis; Z95.0 Presence of cardiac pacemaker; F41.9 Anxiety disorder, unspecified; Z95.4 Presence of other heart-valve replacement; Z79.4 Long term (current) use of insulin; Z79.01 Long term (current) use of anticoagulants; Z79.85 Long-term (current) use of injectable non-insulin antidiabetic drugs; Z79.84 Long term (current) use of oral hypoglycemic drugs; I25.2 Old myocardial infarction; Z99.3 Dependence on wheelchair; E21.3 Hyperparathyroidism, unspecified; I50.9 Heart failure, unspecified; Z66 Do not resuscitate; J44.9 Chronic obstructive pulmonary disease, unspecified; R09.02 Hypoxemia; N39.3 Stress incontinence (female) (male); G47.30 Sleep apnea, unspecified; I95.9 Hypotension, unspecified
CPT/HCPCS: 00123; 36415; 71275; 80048; 80053; 85027; 87637; 93005; 93306; 94640; 96374; 96375; 97110; 97530; 99222; 99285; 70450; 71046; 81003; 82270; 83605; 83735; 83880; 84443; 84484; 85025; 85379; 85610; 85730; 93010; 94664; 94760; 99223; 99232; 99233; 99239; J1815; J1940; J3490; J7614

== ENCOUNTER → 2024-04-11 08:22 | Outpatient (BNVA) | payer MEDICARE, SELFPAY | PROVIDERS: PCP Student in an Organized Health Care Education/Training Program; Referring Provider Student in an Organized Health Care Education/Training Program; Visit Provider Internal Medicine Cardiovascular Disease ==

== ENCOUNTER 2024-04-20 11:51 | Outpatient (REF) | payer MEDICARE, MEDICAID, SELFPAY ==
[2024-04-20 15:01] LABS: Bacteria Negative HPF (Negative); C & S Indicated? No; Casts Negative LPF (Negative); Crystals Negative HPF (Negative); Epithelial Cells Negative HPF (Negative); Mucus Negative (Negative); RBC Negative HPF (0-2); WBC 0-2 HPF (0-5)
== END 2024-04-20 11:52 | disposition home or self-care (01) ==
LOC: NCHCN 11:51
PROVIDERS: PCP Student in an Organized Health Care Education/Training Program; Visit Provider Student in an Organized Health Care Education/Training Program
DX: R35.0 Frequency of micturition (principal)
CPT/HCPCS: 81015

== ENCOUNTER 2024-04-25 12:38 | Outpatient (CLI) | payer MEDICARE, MEDICAID, SELFPAY | END 2024-04-25 12:39 | disposition home or self-care (01) | LOC: RT 12:43 | PROVIDERS: PCP Student in an Organized Health Care Education/Training Program; Visit Provider Physician Assistant Surgical | DX: J44.9 Chronic obstructive pulmonary disease, unspecified (principal) | CPT/HCPCS: 94762 ==

== ENCOUNTER 2024-04-30 08:16 | Outpatient (CLI) | payer MEDICARE, MEDICAID, SELFPAY ==
--- NOTE | 2024-04-30 08:15 | RT.EKG_ITS ---
APPROVED REPORT Exam: Resting ECG Reason for Exam: afib Patient Location: O HR:119 bpm ECG Measurements Heart Rate 119 AXIS [place] [id number] P [id number] QRSd 88 QRS -21 QT 340 T 49 QTc 479 Conclusion Atrial fibrillation.. Borderline left axis deviation...QRS axis (-15,-29) Low voltage, precordial leads...precordial leads <1.0mV Consider anterior infarct...Q >30mS in V2-V5
== END 2024-04-30 08:17 | disposition home or self-care (01) ==
LOC: DI.CARD 08:16
PROVIDERS: PCP Student in an Organized Health Care Education/Training Program; Visit Provider Internal Medicine Cardiovascular Disease
DX: I50.9 Heart failure, unspecified
CPT/HCPCS: 93010

== ENCOUNTER → 2024-04-30 14:03 | Outpatient (BNVA) | payer MEDICARE, MEDICAID, SELFPAY | PROVIDERS: PCP Student in an Organized Health Care Education/Training Program; Referring Provider Student in an Organized Health Care Education/Training Program; Visit Provider Internal Medicine Cardiovascular Disease | DX: Z95.0 Presence of cardiac pacemaker (principal); I48.91 Unspecified atrial fibrillation; I50.9 Heart failure, unspecified | CPT/HCPCS: 93005; 99214 ==

== ENCOUNTER 2024-05-25 19:33 | Inpatient (IN) | payer MEDICARE, MEDICAID, SELFPAY ==
[2024-05-25] VITALS (53 sets, daily range): BP systolic 108–141; BP diastolic 35–70; PULSE 59–90; RESP 17–37; TEMP 36.2–37; O2SAT 82–100
--- NOTE | 2024-05-25 19:15 | RT.EKG_ITS ---
APPROVED REPORT Exam: Resting ECG Reason for Exam: short of breath Patient Location: E HR:79 bpm ECG Measurements Heart Rate 79 AXIS [place] 157 P [id number] QRSd 79 QRS -12 QT 421 T 16 QTc 484 Conclusion paced no acute stemi
[2024-05-25] MEDS: Albuterol/Ipratropium 3 ML UPD VIAL UPD ×2 (20:12→20:48)
[2024-05-25] MEDS: methylPREDNISolone SUCC 125 MG VIAL 80 MG IVP (20:12)
[2024-05-25 20:14] LABS: BE (Venous) 7 mmol/L (-2-3); HCO3 (Venous) 32 mmol/L (23-28); O2 Sat (Venous) 83 %; TCO2 (Venous) 30 mmol/L (24-29); pCO2 (Venous) 52 mmHg (41-51); pO2 (Venous) 50 mmHg
[2024-05-25 20:15] LABS: Lactate 1.4 mmol/L (<or=2.0)
[2024-05-25 20:18] LABS: Abs Immature Grans 0.06 10^3/uL (0.0-0.06); HCT 33.6 % (36.0-46.0); HGB 10.8 g/dL (11.2-15.7); MCH 31.2 pg (27.0-33.0); MCHC 32.1 % (32.0-36.0); MCV 97 fL (80-95); MPV 11.5 fL (8.0-11.0); Platelet Count 262 10^3/uL (130-400); RBC 3.46 10^6/uL (3.93-5.22); RDW 15.6 % (11.7-14.6); RDW-SD 55.1 fL; WBC 12.07 10^3/uL (4.4-10.8)
[2024-05-25 20:37] LABS: Absolute Basophil Count 0.12 10^3/uL (0.0-0.2); Absolute Eosinophil Count 0.24 10^3/uL (0.0-0.7); Absolute Lymphocyte Count 0.97 10^3/uL (1.2-3.4); Absolute Monocyte Count 0.84 10^3/uL (0.1-0.8); Absolute Neutrophil Count 9.78 10^3/uL (1.2-6.7); Diff Comment Manual Differential; RBC Morphology Normal
[2024-05-25 20:51] LABS: ALT 31 U/L (14-59); AST 33 U/L (15-37); Albumin 3.3 g/dL (3.4-5.0); Alkaline Phosphatase 126 U/L (46-116); Anion Gap 7.2 mmol/L (3-11); BUN 26 mg/dL (7-18); Bilirubin, Total 0.97 mg/dL (0.2-1.0); CO2 31.8 mmol/L (21.0-32.0); CREATININE 1.3 mg/dL (0.55-1.02); Calcium 9.1 mg/dL (8.5-10.1); Chloride 100 mmol/L (98-107); Estimated GFR 42.09 (mL/min/1.73m2); Glucose 182 mg/dL (74-106); Magnesium 1.7 mg/dL (1.8-2.4); NT-proBNP 2893 pg/mL (<300); Potassium 4.1 mmol/L (3.5-5.1); Sodium 139 mmol/L (136-145); TSH (W/Ref FT4) 2.95 uIU/mL (0.36-3.74); Total Protein 7.5 g/dL (6.4-8.2); Troponin I 13 ng/L (<or=51)
[2024-05-25 21:12] LABS: COVID-19 PCR Negative (Negative); Influenza A PCR Negative (Negative); Influenza B PCR Negative (Negative); RSV PCR Negative (Negative)
[2024-05-25 21:13] LABS: Source NASOPHARYNX
[2024-05-25 21:30] LABS: Troponin I 14 ng/L (<or=51)
--- NOTE | 2024-05-25 21:30 | DI.RAD_ITS ---
Exam(s) XR CHEST 2V PA LATERAL EXAM: XR CHEST 2V PA LATERAL CLINICAL HISTORY: shortness of breath, hx of chf TECHNIQUE: 2D digital imaging was performed of the chest. Two images were obtained. PA and lateral views were obtained. COMPARISON: CR XR CHEST 2V PA LATERAL from 04/10/2024 FINDINGS: There is poor inspiration. MEDIASTINUM: Normal. HEART: The heart is at the upper limits of normal in size. A cardiac monitoring device is present. There is a TAVR. PULMONARY VASCULATURE: There is pulmonary venous congestion. LUNGS: Bilateral diffuse interstitial infiltrates are present. This may represent interstitial edema . PLEURAL SPACE: There are small pleural effusions. No pneumothorax. BONE:Within normal limits for the patient's age. OTHER FINDINGS:Normal. IMPRESSION: Findings suggestive of fluid overload/congestive heart failure with bilateral pleural effusions, pulm onary venous congestion and interstitial edema. DATA REPOSITORY: RADIATION DOSE DELIVERED:
--- NOTE | 2024-05-25 21:53 | W.ED.GENAD ---
Discharge Plan Disposition Patient Disposition: Admit to [facility] Condition: Serious Discharge Details Clinical Impression: CHF (congestive heart failure), Respiratory failure, Atrial fibrillation Primary Care Provider: Zeus Hebert ED Provider: Krissy Moise Home Meds and New Rx's Prescriptions: No Action sucralfate 1 gram tablet 1 g PO QID metoprolol tartrate 100 mg tablet 100 mg PO BID Qty: 180 3RF diltiazem HCl 240 mg capsule,extended release 24hr 240 mg PO DAILY Qty: 90 3RF atorvastatin 80 mg tablet 80 mg PO DAILY duloxetine 30 mg capsule,delayed release(DR/EC) 30 mg PO QPM Eliquis 5 mg tablet 5 mg PO BID famotidine 20 mg tablet 20 mg PO DAILY glipizide 5 mg tablet 5 mg PO DAILY insulin glargine [Lantus Solostar U-100 Insulin] 100 unit/mL (3 mL) insulin pen 66 unit subcut QPM trazodone 50 mg tablet 50 mg PO DAILY furosemide 40 mg tablet 60 mg PO DAILY Ozempic 0.25 mg or 0.5 mg (2 mg/3 mL) pen injector 0.25 mg SUBCUT .weekly Patient Comments: 04/11/24 - has not started yet per patient HPI General Date/Time Provider Initiated Documentation: 05/25/24 19:52. HPI Narrative: The patient is a 78-year-old female with a history of atrial fibrillation, COPD, CHF, chronically anticoagulated on Eliquis who presents with report of palpitations and dyspnea which started worsening on Monday. She states that her oxygen was also low at that time. Today, she called EMS that she was having trouble breathing. Related Data Home Medications ?Medication ?Instructions ?Recorded ?Confirmed apixaban 5 mg tablet (Eliquis) 5 mg PO BID 12/19/23 05/25/24 atorvastatin 80 mg tablet 80 mg PO DAILY 12/19/23 05/25/24 duloxetine 30 mg capsule,delayed 30 mg PO QPM 12/19/23 05/25/24 release famotidine 20 mg tablet 20 mg PO DAILY 12/19/23 05/25/24 glipizide 5 mg tablet 5 mg PO DAILY 12/19/23 05/25/24 insulin glargine 100 unit/mL (3 66 unit subcut QPM 12/19/23 05/25/24 mL) subcutaneous pen (Lantus Solostar U-100 Insulin) trazodone 50 mg tablet 50 mg PO DAILY 12/19/23 05/25/24 furosemide 40 mg tablet 60 mg PO DAILY 04/09/24 05/25/24 sucralfate 1 gram tablet 1 g PO QID 04/09/24 05/25/24 semaglutide 0.25 mg or 0.5 mg (2 0.25 mg subcut .weekly 04/11/24 05/25/24 mg/3 mL) subcutaneous pen injector (Ozempic) diltiazem HCl 240 mg 240 mg PO DAILY #90 caps 04/30/24 04/30/24 capsule,extended release 24 hr metoprolol tartrate 100 mg tablet 100 mg PO BID #180 tabs 04/30/24 05/25/24 Previous Rx's ?Medication ?Instructions ?Recorded diltiazem HCl 240 mg 240 mg PO DAILY #90 caps 04/30/24 capsule,extended release 24 hr metoprolol tartrate 100 mg tablet 100 mg PO BID #180 tabs 04/30/24 Allergies Allergy/AdvReac Type Severity Reaction Status Date / Time gabapentin Allergy Unknown Unverified 05/25/24 20:01 pantoprazole Allergy Unknown Unverified 05/25/24 20:01 semaglutide (From Ozempic) Allergy Unknown Unverified 05/25/24 20:01 General Stated Complaint: Arrhythmia ZARIA: 2 Exam Narrative Exam Narrative: General Appearance: Patient is alert and oriented. Vital signs: Within normal limits. HEENT: Within normal limits. Respiratory: Crackles heard at the bases of the lungs. Patient is in moderate respiratory distress. Cardiovascular: Heart rhythm is irregularly irregular. A murmur is present. Gastrointestinal: Abdomen is nontender. Extremities: There is 2-3+ pitting edema in bilateral lower extremities. Skin: Warm and dry, no rash. Neurological: Normal. Course Vital Signs Vital signs: Vital Signs Temperature 37.0 C 05/25/24 19:52 Pulse 80 05/25/24 19:52 Respiratory Rate 19 05/25/24 19:52 Blood Pressure 126/56 L 05/25/24 19:52 Pulse Oximetry 95 05/25/24 19:52 Temperature 37.0 C 05/25/24 19:52 Temperature Source Temporal Artery Scan 05/25/24 19:52 Pulse 59 L 02/22/25 20:50 Respiratory Rate 34 H 05/25/24 20:50 Blood Pressure 121/35 L 05/25/24 20:47 Blood Pressure Position Sitting 05/25/24 19:52 Pulse Oximetry 91 L 05/25/24 20:50 Respiratory End-tidal CO2 35 05/25/24 20:30 Oxygen Delivery Method Nasal Cannula 05/25/24 19:52 Oxygen Flow Rate 4 05/25/24 19:52 Pain Level 0 05/25/24 19:52 Comment pt trialed off O2, desat to 87% within 45sec 05/25/24 19:52 Lab/Test Results Lab/Test Results: Laboratory Tests Range/Units 05/25/24 05/25/24 05/25/24 20:08 20:25 21:03 WBC (4.4-10.8) 10^3/uL 12.07 H RBC (3.93-5.22) 10^6/uL 3.46 L Hgb (11.2-15.7) g/dL 10.8 L Hct (36.0-46.0) % 33.6 L MCV (80-95) fL 97 H MCH (27.0-33.0) pg 31.2 MCHC (32.0-36.0) % 32.1 RDW (11.7-14.6) % 15.6 H Plt Count (130-400) 10^3/uL 262 MPV (8.0-11.0) fL 11.5 H Immature Gran % % 0.0 Neutrophils % % 81.0 Lymphocytes % % 8.0 Monocytes % % 7.0 Eosinophils % % 2.0 Basophils % % 1.0 Nucleated RBC % (0.0-0.3) % 1.0 H Absolute Neutrophils (1.2-6.7) 10^3/uL 9.78 H Absolute Lymphocytes (1.2-3.4) 10^3/uL 0.97 L Absolute Monocytes (0.1-0.8) 10^3/uL 0.84 H Absolute Eosinophils (0.0-0.7) 10^3/uL 0.24 Absolute Basophils (0.0-0.2) 10^3/uL 0.12 RBC Morphology Normal VBG pH (7.31-7.41) 7.40 VBG pCO2 (41-51) mmHg 52 H VBG pO2 mmHg 50 VBG HCO3 (23-28) mmol/L 32 H VBG Total CO2 (24-29) mmol/L 30 H VBG O2 Saturation % 83 VBG Base Excess (-2-3) mmol/L 7 H VBG Lactate (<or=2.0) mmol/L 1.4 Sodium (136-145) mmol/L 139 Potassium (3.5-5.1) mmol/L 4.1 Chloride (98-107) mmol/L 100 Carbon Dioxide (21.0-32.0) mmol/L 31.8 Anion Gap (3-11) mmol/L 7.2 BUN (7-18) mg/dL 26 H Creatinine (0.55-1.02) mg/dL 1.3 H Est GFR (CKD-EPI 2020) (mL/min/1.73m2) 42.09 Glucose (74-106) mg/dL 182 H Calcium (8.5-10.1) mg/dL 9.1 Magnesium (1.8-2.4) mg/dL 1.7 L Total Bilirubin (0.2-1.0) mg/dL 0.97 AST (15-37) U/L 33 ALT (14-59) U/L 31 Alkaline Phosphatase (46-116) U/L 126 H Troponin I (<or=51) ng/L 13 14 NT-Pro-B Natriuret Pep (<300) pg/mL 2893 H Total Protein (6.4-8.2) g/dL 7.5 Albumin (3.4-5.0) g/dL 3.3 L TSH (0.36-3.74) uIU/mL 2.95 COVID-19 Source NASOPHARYNX SARS-CoV-2 (PCR) (Negative) Negative Influenza Type A (PCR) (Negative) Negative Influenza Type B (PCR) (Negative) Negative RSV (PCR) (Negative) Negative Medical Decision Making Laboratory Studies BNP is elevated. VBG is reassuring. Lactic acid is negative. Troponins are negative x2. Imaging Chest x-ray shows pulmonary edema, Echo B lines, and fluid in the right fissure. Testing EKG shows atrial fibrillation, rate controlled. Initial Assessment: 78-year-old female with history of atrial fibrillation, COPD, CHF, chronically anticoagulated on Eliquis presents with palpitations and dyspnea worsening since Monday. Oxygen levels low, moderate respiratory distress, requiring 2 L of oxygen to maintain saturation of 91-92%, desaturates to 85% off oxygen. Differential Diagnosis: - CHF exacerbation: Elevated BNP, limited improvement with DuoNebs, chest x-ray shows pulmonary edema, Echo B lines, fluid in right fissure. Plan: Place Johnson catheter, initiate Lasix, admit for further care. - Atrial Fibrillation: Remains in atrial fibrillation but rate-controlled. EKG shows atrial fibrillation with controlled rate. Chronically anticoagulated on Eliquis. Plan: Monitor and manage as part of CHF exacerbation treatment. - COPD: Received Solu-Medrol initially. Limited improvement with DuoNebs, other findings suggest CHF exacerbation. Plan: Continue monitoring. ED Course: --She is dyspneic and requiring oxygen. She desats to 86% without oxygen. She received 2 albuterol nebs as she is unsure as to whether or not this is CHF potentially versus COPD and she states she feels improvement after the nebulizer treatments, but really the oxygen is what has helped. She is on 2 L in the emergency department. She was given Solu-Medrol initially as well to cover for COPD. She remains in atrial fibrillation, but rate controlled. She has crackles at bases and is hypoxic off of oxygen, requiring 2 L of oxygen to maintain a sat of 91 to 92%. Desats to 85% off oxygen, received 2 nebs initially and reported some minor improvement in symptoms as she had decreased aeration. Initially, there was concern for COPD as it is her history and she was rate controlled with her atrial fibrillation. However, after reviewing her [employer] with increasing episodes of atrial fibrillation, reviewing chest x-ray, elevated BNP, and limited improvement with DuoNebs, decided to place Johnson catheter and initiate Lasix as I suspect patient is having CHF exacerbation. At this time, she is agreeable to admission. Her VBG is reassuring and she has a negative lactic acid, her troponins are negative x2. I also reviewed patient's prior echocardiogram with ejection fraction of 50% with dilated atria, she has a history a bioprosthetic valve, CABG, and pacemaker. Formal interpretation of x-ray is still pending, case discussed with admitting hospitalist, Dr. Alexander who will accept patient to his care. - Patient received two albuterol nebs, minor improvement in symptoms. - Solu-Medrol administered for COPD. - Chest x-ray performed, shows pulmonary edema, Echo B lines, fluid in right fissure. - Johnson catheter placed. - Lasix initiated. - VBG reassuring, negative lactic acid, troponins negative x2. - Reviewed prior echocardiogram, ejection fraction 50%, dilated atria. - Case discussed with admitting hospitalist, Dr. Alexander, who will accept patient for further care. Final Assessment: Patient with CHF exacerbation, atrial fibrillation, and COPD. Initial treatments provided minor improvement, further interventions include Lasix and admission for continued care. Clinical Impression: - Congestive Heart Failure (CHF) exacerbation - Atrial Fibrillation - Chronic Obstructive Pulmonary Disease (COPD) Disposition: - Admission: Patient agreeable to admission, case discussed with Dr. Alexander. MDM Components Evaluation: - Number of Differential Diagnoses or Management Options: CHF exacerbation, Atrial Fibrillation, COPD - Amount and Complexity of Data Reviewed: Chest x-ray, EKG, [employer] review, elevated BNP, prior echocardiogram, VBG, lactic acid, troponins - Risk of Complication and Morbidity or Mortality: High risk due to CHF exacerbation, atrial fibrillation, COPD, and need for oxygen therapy. Quality:[facility] Health Related Social Needs: Health related social needs housing instability, housed, with risk of homelessness (Z59.811), education (Z55.6) Critical Care Time Critical Care Time Attestation: 35 minutes of critical care time secondary to acute respiratory prep failure in the presence of CHF possibly COPD requiring oxygen supplementation DuoNeb administration, chest x-ray interpretation and review, EKG interpretation and review [facility] All Active Problems (Updated 05/25/24 @ 22:15 by Jose Vasquez) Acute hypoxic respiratory failure (Acute) Atrial fibrillation (Chronic) Respiratory failure (Acute) Asthma (Chronic) Elevated BUN (Acute) CHF (congestive heart failure) (Chronic) Atrial fibrillation with rapid ventricular response (Acute) COPD (chronic obstructive pulmonary disease) (Chronic) Type 2 diabetes mellitus without complications (Chronic) Hypoxia (Acute) Chronic obstructive pulmonary disease with (acute) exacerbation (Acute) Medical History Loose left total knee arthroplasty HTN (hypertension) Contusion of toe, left Dermal mycosis Thyroid nodule Diabetic peripheral neuropathy Vitamin D deficiency Hyperparathyroidism HLD (hyperlipidemia) Obesity Anemia Leukocytosis Depressive disorder GERD (gastroesophageal reflux disease) Cellulitis Stress incontinence Afib Diabetes Cardiac pacemaker in situ placed 04/22/2022 in [place]. [employer] ZURITA [id number] SERIAL # [id number] ENTERED 04/17/24 Anxiety Surgical History S/P AVR replaced with bovine valve Hx of CABG Family History Father Bone cancer Mother Myocardial infarction Brother Myocardial infarction Social History Smoking/Tobacco Use Status: Former Tobacco Use Smoking risk assessment performed?: Yes Alcohol Intake: never Drug use: Never Substance use type: does not use Housing: apartment Do you feel safe at home: Yes Do you feel safe in your relationship?: Yes
[2024-05-25] MEDS: Furosemide 40 MG/4 ML VIAL IVP (22:02)
--- NOTE | 2024-05-25 22:04 | W.PM.HP.N ---
Date of service: 05/25/24 Time of Service: 22:04 Assessment and Plan Assessment and plan (1) Acute hypoxic respiratory failure: Start date: 05/25/24 Status: Acute Assessment and plan: This is a 78-year-old lady who was recently hospitalized with exacerbation of CHF and atrial fibrillation with rapid ventricular response now presenting with hypoxemia and CHF exacerbation by initial assessment with possibly slight exacerbation of her COPD. She will not be continued on IV steroids but will continue with IV Lasix twice her usual daily dose. She responded well to this during her last hospitalization. She admits to not taking her daily dose of Lasix because of increased urinary frequency and problems with mobility. She does live alone but has a friend who can check on her more often. She does have significant arthritis in her knees with the right knee requiring TKA but deferred status post left TKA. O2 supplementation will be continued and adjusted to Pulsoxymeter above 90% and will continue cardiac monitoring with troponins negative. Split dose diltiazem to avoid hypotension while diuresing but will continue metoprolol at same dose if tolerated. She will continue on Eliquis. She is a DNR/DNI. (2) CHF (congestive heart failure): Status: Chronic Assessment and plan: Patient is on 60 mg of Lasix daily per medication list though she does not take the full dose and does not weigh herself daily. She has noticed increased peripheral edema. Lasix will be increased to 60 mg IV twice daily watching for low blood pressure. She chronically is on a higher dose of diltiazem which will be split and lowered with the blood pressure soft while diuresing. The CKD appears to be stable and her BNP is not significantly changed from baseline though clinically she had new onset hypoxemia with worsened CHF by chest x-ray and POCUS. (3) Hypomagnesemia: Start date: 05/25/24 Status: Acute Assessment and plan: Just below normal with patient chronically on Lasix and on no potassium supplement, IV repletion and follow-up lab daily. (4) Atrial fibrillation: Status: Chronic Assessment and plan: Controlled rate but interrogation of pacemaker by ED provider shows frequent rapid ventricular response atrial fibrillation as an outpatient. This may be be contributing to decompensation with CHF along with underdosing of her prescribed Lasix. She is on adequate medical therapy for rate control and interrogation report on pacemaker can be reviewed by cardiology, Dr. Tompkins as outpatient for better continuous rate control. As inpatient, diltiazem will be split dose and lowered if needed while being diuresed with patient not hypertensive upon admission. (5) COPD (chronic obstructive pulmonary disease): Status: Chronic Assessment and plan: Patient is not on inhalers chronically by review of home med list though she states she takes 2 different inhalers at home and this can be reviewed with pharmacy in the morning. She does have slight increase in pCO2 on VBG. Inpatient nebulizer treatments treatments will be maximized with slight increase in pCO2 on VBG. (6) Type 2 diabetes mellitus without complications: Status: Chronic Assessment and plan: Hold outpatient medical therapy and do glucometers before meals and at bedtime with sensitive sliding scale short acting insulin coverage. (7) CKD (chronic kidney disease) stage 3, GFR 30-59 ml/min: Status: Chronic Assessment and plan: Stable with monitoring while diuresing more aggressively. (8) HTN (hypertension): Assessment and plan: Split dose and slightly lower diltiazem dose, otherwise continue outpatient medical therapy adjusting as needed with aggressive diuresis. (9) Cardiac pacemaker in situ: Assessment and plan: Chronic atrial fibrillation, mostly rate controlled though has recorded frequent episodes of rapid ventricular response. This should be reviewed with cardiology as an outpatient. (10) GERD (gastroesophageal reflux disease): Assessment and plan: Continue outpatient medical therapy. (11) Depressive disorder: Assessment and plan: Continue outpatient medical therapy. History of Present Illness History of Present Illness Chief Complaint: Shortness of breath with hypoxemia at home Narrative: This is a 78-year-old female patient last hospitalized early April for CHF exacerbation with atrial fibrillation and rapid ventricular response. She has a history of as FL, CABG, AVR and has a pacemaker which was interrogated in the ED and showed frequent episodes of tachycardia with atrial fibrillation. The patient reports to ED because of shortness of breath over the last 24 hours and new onset hypoxemia at home. She is doing well on oxygen supplementation since brought to the ED and with evaluation was found to have controlled ventricular rate with atrial fibrillation. She is on Lasix 60 mg daily at home but did not take full dose because of increased urination and inability to make it to the bathroom. With her new onset hypoxemia she is requiring 4 L of O2 per nasal cannula with a pulse ox over 91%. As stated, she usually does not have oxygen at home. POCUS was performed by the ED provider with curly B-lines and poor ventricular function though her last echocardiogram in April 2024 did show preserved left-ventricular ejection fraction with moderately enlarged atria and increased PA pressures. Chest x-ray was eventually reviewed and confirmed CHF exacerbation. Patient was given 40 mg of Lasix and Johnson catheter was placed the patient be admitted for exacerbation of CHF with chronic atrial fibrillation and new onset hypoxemia. Her VBG was reassuring with no significant pCO2 elevation and normal pH. Troponins were negative. Patient did have a low magnesium which will be repleted and her creatinine appears at baseline with some CKD. Her BMP was actually low 2893 compared to her April admission where it was 7834. Patient was initially treated for possible COPD exacerbation but is responding better to diuresis. She is a DNR/DNI. Review of Systems Narrative: 13 point review of systems positive for poor ambulation because of pain but no falls, increased peripheral edema with decreased Lasix with patient not weighing herself daily because of difficulty ambulating, otherwise unrevealing or stable. She is obese with significant arthritis and does live alone. PFSH All Active Problems (Updated 05/25/24 @ 22:26 by Jose Vasquez) Hypomagnesemia (Acute) CKD (chronic kidney disease) stage 3, GFR 30-59 ml/min (Chronic) Acute hypoxic respiratory failure (Acute) Atrial fibrillation (Chronic) Respiratory failure (Acute) Asthma (Chronic) Elevated BUN (Acute) CHF (congestive heart failure) (Chronic) Atrial fibrillation with rapid ventricular response (Acute) COPD (chronic obstructive pulmonary disease) (Chronic) Type 2 diabetes mellitus without complications (Chronic) Hypoxia (Acute) Chronic obstructive pulmonary disease with (acute) exacerbation (Acute) Medical History Loose left total knee arthroplasty HTN (hypertension) Contusion of toe, left Dermal mycosis Thyroid nodule Diabetic peripheral neuropathy Vitamin D deficiency Hyperparathyroidism HLD (hyperlipidemia) Obesity Anemia Leukocytosis Depressive disorder GERD (gastroesophageal reflux disease) Cellulitis Stress incontinence Afib Diabetes Cardiac pacemaker in situ placed 04/22/2022 in [place]. Kaylee ZURITA [id number] SERIAL # [id number] RH ENTERED 04/17/24 Anxiety Surgical History S/P AVR replaced with bovine valve Hx of CABG Family History Father Bone cancer Mother Myocardial infarction Brother Myocardial infarction Social History Smoking/Tobacco Use Status: Former Tobacco Use Smoking risk assessment performed?: Yes Alcohol Intake: never Drug use: Never Substance use type: does not use Housing: apartment Do you feel safe at home: Yes Do you feel safe in your relationship?: Yes Meds Allergies and Home Medications Allergies Allergy/AdvReac Type Severity Reaction Status Date / Time gabapentin Allergy Unknown Unverified 05/25/24 20:01 pantoprazole Allergy Unknown Unverified 05/25/24 20:01 semaglutide (From Ozempic) Allergy Unknown Unverified 05/25/24 20:01 Home Medications ?Medication ?Instructions ?Recorded ?Confirmed ?Type apixaban 5 mg tablet (Eliquis) 5 mg PO BID 12/19/23 05/25/24 History atorvastatin 80 mg tablet 80 mg PO DAILY 12/19/23 05/25/24 History duloxetine 30 mg capsule,delayed 30 mg PO QPM 12/19/23 05/25/24 History release famotidine 20 mg tablet 20 mg PO DAILY 12/19/23 05/25/24 History glipizide 5 mg tablet 5 mg PO DAILY 12/19/23 05/25/24 History insulin glargine 100 unit/mL (3 66 unit subcut QPM 12/19/23 05/25/24 History mL) subcutaneous pen (Lantus Solostar U-100 Insulin) trazodone 50 mg tablet 50 mg PO DAILY 12/19/23 05/25/24 History furosemide 40 mg tablet 60 mg PO DAILY 04/09/24 05/25/24 History sucralfate 1 gram tablet 1 g PO QID 04/09/24 05/25/24 History semaglutide 0.25 mg or 0.5 mg (2 0.25 mg subcut .weekly 04/11/24 05/25/24 History mg/3 mL) subcutaneous pen injector (Ozempic) diltiazem HCl 240 mg 240 mg PO DAILY #90 caps 04/30/24 05/25/24 Rx capsule,extended release 24 hr metoprolol tartrate 100 mg tablet 100 mg PO BID #180 tabs 04/30/24 05/25/24 Rx Exam Narrative Exam Narrative: General: Patient appears appropriate for age and is hard of hearing, morbidly obese, alert and oriented x 3 and in no acute distress. HEENT: Normocephalic, course and facial features. Eyes with pupils equal and reactive to light symmetrically, extraocular movement intact and sclera anicteric. Oropharynx with slightly dry mucosa and poor dentition. Neck: Supple without JVD. Back: Kyphotic without CVA tenderness. Lungs: Poor inspiratory effort but fair aeration with bronchovesicular breath sounds diffusely and no focalizing rales or rhonchi. Decreased aeration at bases. Breast: Exam deferred. Heart: Irregularly irregular rhythm with normal rate with no appreciable murmur or gallop. No rubs. Abdomen: Obese contour, soft and nontender to palpation with no palpable hepatosplenomegaly. Bowel sounds positive all quadrants. Genitalia/rectal: Exam deferred. Patient does have Johnson catheter in place draining clear urine. Extremities: 2+ slightly pitting edema with obese extremities and osteoarthritic changes of the knees. Left knee has an anterior scar. No cyanosis or clubbing. Fair capillary refill. Skin: Normal color, warm and dry. Neuro: Cranial nerves II through XII grossly intact with decreased hearing acuity, no focalizing motor deficits or tremor. Psych: Normal affect and mood. Remote and recent memory grossly intact. No abnormal thought processes. Results Imaging Imaging Studies: EXAM: Comprehensive 2D, Doppler, and color-flow Echocardiogram Date of Exam: 04/12/24 Indications: BNP = 8000 without CHF dx Other Information Study Quality: Technically Limited. Technically limited study due to body habitus, inability to position patient. Conclusion Technically difficult study Left ventricle appears grossly normal in size and wall thickness. Ejection fraction is estimated at 50%. No segmental wall motion abnormalities are identified Normal right ventricular size and function Both atria are moderately enlarged There is a bioprosthetic aortic valve replacement. There is no significant gradient, no aortic regurgitation Thickened mitral leaflets. Mild mitral regurgitation Mild tricuspid regurgitation. Estimated right ventricular systolic pressure is 52 mmHg Exam: XR Chest Exam date and time: 05/25/2024 9:45 PM Age: 78 years old Clinical indication: Shortness of breath; SOB, HX of chf TECHNIQUE: Imaging protocol: Radiologic exam of the chest. Views: 2 views. COMPARISON: CT CHEST PE CTA 04/10/2024 7:52 PM FINDINGS: Limitations: The examination is underpenetrated. Lungs: There is diffuse hazy increased density with hazy indistinctness of the pulmonary vascular margins suggesting pulmonary edema. Pleural spaces: There are small bilateral pleural effusions. No pneumothorax is demonstrated. Heart/Mediastinum: The heart is enlarged. There is a cardiac pacemaker device implanted in the left anterior chest wall with leads projecting over the right atrium and ventricle. Bones/joints: The visualized bony structures appear grossly intact, as seen. IMPRESSION: Diffuse interstitial pulmonary edema. Small bilateral pleural effusions. Labs 05/25/24 20:08 05/25/24 20:08 Labs: Laboratory Results - last 24 hr 05/25/24 05/25/24 05/25/24 20:08 20:25 21:03 WBC 12.07 H RBC 3.46 L Hgb 10.8 L Hct 33.6 L MCV 97 H MCH 31.2 MCHC 32.1 RDW 15.6 H Plt Count 262 MPV 11.5 H Immature Gran % 0.0 Neutrophils % 81.0 Lymphocytes % 8.0 Monocytes % 7.0 Eosinophils % 2.0 Basophils % 1.0 Nucleated RBC % 1.0 H Absolute Neutrophils 9.78 H Absolute Lymphocytes 0.97 L Absolute Monocytes 0.84 H Absolute Eosinophils 0.24 Absolute Basophils 0.12 RBC Morphology Normal VBG pH 7.40 VBG pCO2 52 H VBG pO2 50 VBG HCO3 32 H VBG Total CO2 30 H VBG O2 Saturation 83 VBG Base Excess 7 H VBG Lactate 1.4 Sodium 139 Potassium 4.1 Chloride 100 Carbon Dioxide 31.8 Anion Gap 7.2 BUN 26 H Creatinine 1.3 H Est GFR (CKD-EPI 2020) 42.09 Glucose 182 H Calcium 9.1 Magnesium 1.7 L Total Bilirubin 0.97 AST 33 ALT 31 Alkaline Phosphatase 126 H Troponin I 13 14 NT-Pro-B Natriuret Pep 2893 H Total Protein 7.5 Albumin 3.3 L TSH 2.95 COVID-19 Source NASOPHARYNX SARS-CoV-2 (PCR) Negative Influenza Type A (PCR) Negative Influenza Type B (PCR) Negative RSV (PCR) Negative Last Vital Signs Temp 37.0 C 05/25/24 19:52 Pulse 59 L 05/25/24 20:50 Resp 34 H 05/25/24 20:50 BP 121/35 L 05/25/24 20:47 Pulse Ox 91 L 05/25/24 20:50 Time Spent Time spent with Patient: >75 minutes Time was spent: preparing to see the patient(eg.review tests), obtaining and/or reviewing separately otained hiistory, ordering medications,tests, procedures, indepentently interpreting results, counseling the patient and care coordination
--- NOTE | 2024-05-25 23:08 | DI.VRAD_ITS ---
PROCEDURE INFORMATION: Exam: XR Chest Exam date and time: 05/25/2024 9:45 PM Age: 78 years old Clinical indication: Shortness of breath; SOB, HX of chf TECHNIQUE: Imaging protocol: Radiologic exam of the chest. Views: 2 views. COMPARISON: CT CHEST PE CTA 04/10/2024 7:52 PM FINDINGS: Limitations: The examination is underpenetrated. Lungs: There is diffuse hazy increased density with hazy indistinctness of the pulmonary vascular margins suggesting pulmonary edema. Pleural spaces: There are small bilateral pleural effusions. No pneumothorax is demonstrated. Heart/Mediastinum: The heart is enlarged. There is a cardiac pacemaker device implanted in the left anterior chest wall with leads projecting over the right atrium and ventricle. Bones/joints: The visualized bony structures appear grossly intact, as seen. IMPRESSION: Diffuse interstitial pulmonary edema. Small bilateral pleural effusions. Dictated and Authenticated by: Keon Warren MD. Orderin Suma Rey MD
--- NOTE | 2024-05-25 23:10 | W.PC.ACHO ---
Registration Status: Primary Language: Preferred Language: ED Information & Data Chief Complaint Arrhythmia 05/25/24 22:12 Other Complaint RespSymp 05/25/24 19:52 Triage Note Pt BIBEMS c/o feeling like 05/25/24 19:52 her heart is 'bouncing all over the place' since yesterday. [place] anxious w/ increasing SOB. EMS reports upon arrival SpO2 was 84-87% . Has atrial pacemaker. 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 No other complaints Medical / Surgical History (Last Reviewed 05/25/24 @ 22:10 by Jose Vasquez) Loose left total knee arthroplasty HTN (hypertension) Contusion of toe, left Dermal mycosis Thyroid nodule Diabetic peripheral neuropathy Vitamin D deficiency Hyperparathyroidism HLD (hyperlipidemia) Obesity Anemia Leukocytosis Depressive disorder GERD (gastroesophageal reflux disease) Cellulitis Stress incontinence Afib Diabetes Cardiac pacemaker in situ Anxiety (Last Reviewed 05/25/24 @ 22:10 by Jose Vasquez) S/P AVR Hx of CABG Most Recent Vital Signs Temperature 37.0 C 05/25/24 19:52 Temperature Source Temporal Artery Scan 05/25/24 19:52 Pulse 59 L 05/25/24 20:50 Respiratory Rate 34 H 05/25/24 20:50 Blood Pressure 121/35 L 05/25/24 20:47 Blood Pressure Position Sitting 05/25/24 19:52 Pulse Oximetry 91 L 05/25/24 20:50 Respiratory End-tidal CO2 35 05/25/24 20:30 Oxygen Delivery Method Nasal Cannula 05/25/24 19:52 Oxygen Flow Rate 4 05/25/24 19:52 Pain Level 0 05/25/24 19:52 Comment pt trialed off O2, desat to 87% within 45sec 05/25/24 19:52 Allergies gabapentin Allergy (Unverified 05/25/24 20:01) Unknown pantoprazole Allergy (Unverified 05/25/24 20:01) Unknown semaglutide (From Ozempic) Allergy (Unverified 05/25/24 20:01) Unknown Precautions Isolation Standard precaution 05/25/24 19:58 IV IV Catheter Type [Left Saline Lock Antecubital] IV Catheter Gauge [Left 18 Antecubital] Diagnostics 05/25/24 05/25/24 05/25/24 Range/Units 22:54 21:03 20:25 WBC (4.4-10.8) 10^3/uL RBC (3.93-5.22) 10^6/uL Hgb (11.2-15.7) g/dL Hct (36.0-46.0) % MCV (80-95) fL MCH (27.0-33.0) pg MCHC (32.0-36.0) % RDW (11.7-14.6) % Plt Count (130-400) 10^3/uL MPV (8.0-11.0) fL Immature Gran % % Neutrophils % % Lymphocytes % % Monocytes % % Eosinophils % % Basophils % % Nucleated RBC % (0.0-0.3) % Absolute Neutrophils (1.2-6.7) 10^3/uL Absolute Lymphocytes (1.2-3.4) 10^3/uL Absolute Monocytes (0.1-0.8) 10^3/uL Absolute Eosinophils (0.0-0.7) 10^3/uL Absolute Basophils (0.0-0.2) 10^3/uL RBC Morphology VBG pH (7.31-7.41) VBG pCO2 (41-51) mmHg VBG pO2 mmHg VBG HCO3 (23-28) mmol/L VBG Total CO2 (24-29) mmol/L VBG O2 Saturation % VBG Base Excess (-2-3) mmol/L VBG Lactate (<or=2.0) mmol/L Sodium (136-145) mmol/L Potassium (3.5-5.1) mmol/L Chloride (98-107) mmol/L Carbon Dioxide (21.0-32.0) mmol/L Anion Gap (3-11) mmol/L BUN (7-18) mg/dL Creatinine (0.55-1.02) mg/dL Est GFR (CKD-EPI 2020) (mL/min/1.73m2) Glucose (74-106) mg/dL Calcium (8.5-10.1) mg/dL Magnesium (1.8-2.4) mg/dL Total Bilirubin (0.2-1.0) mg/dL AST (15-37) U/L ALT (14-59) U/L Alkaline Phosphatase (46-116) U/L Troponin I Pending 14 (<or=51) ng/L NT-Pro-B Natriuret Pep (<300) pg/mL Total Protein (6.4-8.2) g/dL Albumin (3.4-5.0) g/dL TSH (0.36-3.74) uIU/mL COVID-19 Source NASOPHARYNX SARS-CoV-2 (PCR) Negative (Negative) Influenza Type A (PCR) Negative (Negative) Influenza Type B (PCR) Negative (Negative) RSV (PCR) Negative (Negative) 05/25/24 Range/Units 20:08 WBC 12.07 H (4.4-10.8) 10^3/uL RBC 3.46 L (3.93-5.22) 10^6/uL Hgb 10.8 L (11.2-15.7) g/dL Hct 33.6 L (36.0-46.0) % MCV 97 H (80-95) fL MCH 31.2 (27.0-33.0) pg MCHC 32.1 (32.0-36.0) % RDW 15.6 H (11.7-14.6) % Plt Count 262 (130-400) 10^3/uL MPV 11.5 H (8.0-11.0) fL Immature Gran % 0.0 % Neutrophils % 81.0 % Lymphocytes % 8.0 % Monocytes % 7.0 % Eosinophils % 2.0 % Basophils % 1.0 % Nucleated RBC % 1.0 H (0.0-0.3) % Absolute Neutrophils 9.78 H (1.2-6.7) 10^3/uL Absolute Lymphocytes 0.97 L (1.2-3.4) 10^3/uL Absolute Monocytes 0.84 H (0.1-0.8) 10^3/uL Absolute Eosinophils 0.24 (0.0-0.7) 10^3/uL Absolute Basophils 0.12 (0.0-0.2) 10^3/uL RBC Morphology Normal VBG pH 7.40 (7.31-7.41) VBG pCO2 52 H (41-51) mmHg VBG pO2 50 mmHg VBG HCO3 32 H (23-28) mmol/L VBG Total CO2 30 H (24-29) mmol/L VBG O2 Saturation 83 % VBG Base Excess 7 H (-2-3) mmol/L VBG Lactate 1.4 (<or=2.0) mmol/L Sodium 139 (136-145) mmol/L Potassium 4.1 (3.5-5.1) mmol/L Chloride 100 (98-107) mmol/L Carbon Dioxide 31.8 (21.0-32.0) mmol/L Anion Gap 7.2 (3-11) mmol/L BUN 26 H (7-18) mg/dL Creatinine 1.3 H (0.55-1.02) mg/dL Est GFR (CKD-EPI 2020) 42.09 (mL/min/1.73m2) Glucose 182 H (74-106) mg/dL Calcium 9.1 (8.5-10.1) mg/dL Magnesium 1.7 L (1.8-2.4) mg/dL Total Bilirubin 0.97 (0.2-1.0) mg/dL AST 33 (15-37) U/L ALT 31 (14-59) U/L Alkaline Phosphatase 126 H (46-116) U/L Troponin I 13 (<or=51) ng/L NT-Pro-B Natriuret Pep 2893 H (<300) pg/mL Total Protein 7.5 (6.4-8.2) g/dL Albumin 3.3 L (3.4-5.0) g/dL TSH 2.95 (0.36-3.74) uIU/mL COVID-19 Source SARS-CoV-2 (PCR) (Negative) Influenza Type A (PCR) (Negative) Influenza Type B (PCR) (Negative) RSV (PCR) (Negative) Intake and Output - 24 Hour Total 05/25/24 19:25 thru 05/25/24 21:58 Weight 108.1 kg Other: Urine Color Pale Yellow Urine Appearance Clear Urinary Catheter Urinary Catheter Date of 05/25/24 Insertion [Urethral (Johnson)] Time of insertion [Urethral ( 21:58 Johnson)] Falls Risk Assessment History of Falls No History 05/25/24 19:59 Contributing Factors No Factors 05/25/24 19:59 Ambulatory Aids Independent 05/25/24 19:59 Tubes/Lines None 05/25/24 19:59 Gait Evaluation No gait disturbance 05/25/24 19:59 Cognition No cognitive impairment 05/25/24 19:59 Fall Total Score 0 05/25/24 19:59 Level of Risk Standard/Low Risk 05/25/24 19:59 Problems (Last Reviewed 05/25/24 @ 22:10 by Jose Vasquez) Hypomagnesemia (Acute) CKD (chronic kidney disease) stage 3, GFR 30-59 ml/min (Chronic) Acute hypoxic respiratory failure (Acute) Atrial fibrillation (Chronic) CHF (congestive heart failure) (Chronic) COPD (chronic obstructive pulmonary disease) (Chronic) Type 2 diabetes mellitus without complications (Chronic) v v v v v v v v v Sending and/or Receiving Nurses: Please use comment section below to note any information pertinent to the patient hand-off not included above. Information / Report taken from DESKTOP ARCHITECT Gabriella, patient has diagnosis of CHF Exac., having SOB and with audible wheeziness upon arrival in ER. On going O2 at 2L/NC. [place] but pleasant and cooperative. All questions asked answered appropriately. Report received from:
[2024-05-25 23:35] LABS: Troponin I 12 ng/L (<or=51)
[2024-05-26] VITALS (17 sets, daily range): BP systolic 104–136; BP diastolic 63–87; PULSE 75–118; RESP 3–28; TEMP 36–36.8; O2SAT 90–97
--- NOTE | 2024-05-26 | DI.RAD_ITS ---
Exam(s) XR CHEST 2V PA LATERAL EXAM: XR CHEST 2V PA LATERAL CLINICAL HISTORY: wheezing after diuresis TECHNIQUE: 2D digital imaging was performed of the chest. Two images were obtained. PA and lateral views were obtained. COMPARISON: CR,XR XR CHEST 2V PA LATERAL from 05/25/2024 FINDINGS: MEDIASTINUM: Normal. HEART: Heart size is stable. The patient has a TAVR. The pacing wires are stable in position. PULMONARY VASCULATURE: There is persistent pulmonary venous congestion. LUNGS: Persistent interstitial infiltrates are seen in the lungs. No focal consolidating infiltrates are seen. PLEURAL SPACE: There are persistent bilateral pleural effusions. BONE:Within normal limits for the patient's age. OTHER FINDINGS:Normal. IMPRESSION: Findings remain consistent with fluid overload//congestive heart failure. DATA REPOSITORY: RADIATION DOSE DELIVERED:
[2024-05-26] MEDS: MAGNESIUM SULFATE 2 GM/50 ML BAG IV_INF (00:05)
[2024-05-26 01:52] LABS: Bilirubin Negative (Negative); Blood Large (Negative); Clarity Sl Cloudy (Clear); Glucose Negative (Negative); Ketones Negative (Negative); Leukocyte Esterase Negative (Negative); Nitrite Negative (Negative); Urobilinogen 0.2 mg/dL (Up to 0.2); pH 5.5 (5-8)
[2024-05-26 01:56] LABS: Bacteria Rare HPF (Negative); C & S Indicated? No; Casts Negative LPF (Negative); Crystals Negative HPF (Negative); Epithelial Cells Rare HPF (Negative); Mucus Negative (Negative)
[2024-05-26] MEDS: Albuterol/Ipratropium 3 ML UPD VIAL UPD ×4 (02:00→20:07)
[2024-05-26] MEDS: Metoprolol 50 MG TAB 100 MG PO ×2 (06:43→21:00)
[2024-05-26 07:24] LABS: HCT 34.4 % (36.0-46.0); HGB 10.8 g/dL (11.2-15.7); MCH 30.6 pg (27.0-33.0); MCHC 31.4 % (32.0-36.0); MCV 98 fL (80-95); MPV 12.1 fL (8.0-11.0); Platelet Count 232 10^3/uL (130-400); RBC 3.53 10^6/uL (3.93-5.22); RDW 15.8 % (11.7-14.6); RDW-SD 55.6 fL; WBC 7.47 10^3/uL (4.4-10.8)
[2024-05-26 07:57] LABS: ALT 32 U/L (14-59); AST 27 U/L (15-37); Albumin 3.1 g/dL (3.4-5.0); Alkaline Phosphatase 125 U/L (46-116); Anion Gap 6.9 mmol/L (3-11); BUN 26 mg/dL (7-18); CO2 31.1 mmol/L (21.0-32.0); CREATININE 1.3 mg/dL (0.55-1.02); Calcium 9.2 mg/dL (8.5-10.1); Chloride 102 mmol/L (98-107); Estimated GFR 42.09 (mL/min/1.73m2); Glucose 219 mg/dL (74-106); Magnesium 2.1 mg/dL (1.8-2.4); Potassium 3.8 mmol/L (3.5-5.1); Sodium 140 mmol/L (136-145); Total Protein 7.3 g/dL (6.4-8.2)
[2024-05-26] MEDS: Insulin Aspart 300 UNITS/3 ML PEN SC ×4 (08:28→22:02)
[2024-05-26] MEDS: Furosemide 100 MG/10 ML VIAL 60 MG IVP ×2 (08:30→16:35)
[2024-05-26] MEDS: Sucralfate 1 GM TAB PO ×4 (08:31→21:00)
[2024-05-26] MEDS: dilTIAZem 60 MG TAB PO (08:31)
[2024-05-26] MEDS: Normal Saline Flush 10 ML SYR IVP ×3 (08:31→21:01)
[2024-05-26] MEDS: Famotidine 20 MG TAB PO (08:31)
[2024-05-26] MEDS: traZODone 50 MG TAB PO (08:31)
[2024-05-26] MEDS: Apixaban 5 MG TAB PO ×2 (08:31→21:00)
--- NOTE | 2024-05-26 09:37 | PDOC.CMIN ---
Date of service: 05/26/24 Time of Service: 09:37 Care Management Initial Assmt Initial Assessment Reason for Hospitalization: respiratory failure secondary to CHF and COPD Functional Status/Living Situation Patient Presentation: Jessa was sitting up in a chair with her legs elevated when CM met with her. She was pleasant in manner and easily engaged with CM. Jesas is a little hard of hearing so CM needed to repeat parts of the conversation. Jessa was admitted with CHF and is being diuresed with 60 mg of IV Lasix bid. She was requiring 3-4 L/min of nasal oxygen yesterday but is now on 1.5 L/min with O2 saturation at 92 % which is similar to her saturation yesterday on 3-4 L. Jessa commented to CM that she is drinking a lot of water but that it is not going into her sosa bag, it is going into her legs. She stated that her thighs feel tight. At the time she had about 150 ml of urine in her sosa and shge seemed sure it had not been emptied. Cm reported the conversation to the CC. Jessa lives alone in an apartment in [facility]. She has caregivers twice a week through [facility] and gets MOW. She also has home health nursing visits twice a week. Jessa has case management through [employer] and also support from [facility]. She uses an electric wheelchair and [facility] for transportation. Jessa has a granddaughter Nguyen who lives in her apartment building on a different floor. She asked CM to see if Nguyen's phone number is listed in her chart as she would like her to bring in her hearing aid motor boss. CM was unable to find any contact information for Nguyen. Jessa's son Chi lives in [place] and CM attempted to call him for the information but his phone number is incomplete with only 9 digits listed instead of 10.Jessa explained to CM that she does not have anyone's phone number because she does not have her cell phone. There was a mix-up with billing and she cannot have it activated until 06/01/24. Town of Residence: [place] Resides with: Alone Natural Supports: granddaughter, Nguyen lives close, but is not very involved. Jessa speaks with her son, Chi, almost daily. Chi lives in [place]. 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) Instrumental Activities of Daily Living (ADLs): Requires support with Dishes/food prep, Groceries, Laundry and Transportation Physical Functioning/Mobility Assistive Device: motorized w/c Advance Directives Advance Directives: Do you have an Advance Directive: N 04/10/24 23:24 AD On File at [facility]: N 03/21/24 10:05 Date Asked 05/25/24 05/25/24 20:14 AD Date Reviewed COLST On File at [facility] COLST Date Scanned Code Status Resuscitation Status DNR/DNI Portal Pt does not currently have a portal and education provided: No Insurance Coverage/Financial Issues Insurance: [employer] Medicare Replacement Care Team Visit Care Team Role Provider Type Renée Pizarro NP NURSE PRACTITIONER Zeus Hebert Primary Care Provider [facility] STAFF PHYSICIAN FRANCISCO Armijo Emergency Provider [facility] Jose Vasquez Admit Provider [facility] STAFF PHYSICIAN Attending Provider Discharge Potential Discharge Needs: PCP F/U Appt Anticipated Barriers to Discharge: None Identified Patient/Family Education Needs: Review discharge instructions, discuss Ask Me Three Transportation: Private vehicle Plan: Anticipate Jessa will return home with a resumption of her caregiver services. She will follow up with her PCP and plan of care and transport with a friend/family member or [facility]. CM will follow and continue to assess for discharge needs. Social Determinants of Health Screening Social Determinants of Health last assessed: 05/26/24 Will the Patient Participate in the Screening?: Yes Do you worry about having a steady place to live?: no Problems where you live: no known problems In the past 12 months, have you had to go without electric, gas, oil or water in your home?: no Have you or anyone in your house had to go without enough food to eat?: no Has lack of transportation kept you from medical appointments or from doing things needed for daily living?: no Has anyone in your life made you feel unsafe or unsupported?: no How hard is it for you to pay for the very basics like food, housing, medical care, and heating? Would you say it is:: Not hard at all Do you want help finding or keeping work or a job?: Yes, help keeping work If for any reason you need help with day-to-day activities such as bathing, preparing meals, shopping, managing finances, etc., do you get the help you need?: I get all the help I need How often do you feel lonely or isolated from those around you?: Sometimes Do you speak a language other than Azerbaijani at home?: Yes Does the patient want assistance with any of the above?: No Social Determinants of Health Comments(SDOH Details): Patient has home health aide for housekeeping and also HH Nurse comes couple times a week. Health Related Social Needs Health related social needs: problems finding work (Z56.9), feeling lonely/isolated (Z60.8) and education (Z55.6) PFSH All Active Problems (Updated 05/26/24 @ 12:15 by Renée Pizarro NP) Yeast infection of the skin (Acute) On deep vein thrombosis (DVT) prophylaxis (Acute) Cardiac pacemaker in situ (Acute) placed 04/22/2022 in [place]. Kaylee ZURITA [id number] SERIAL # [id number] ENTERED 04/17/24 GERD (gastroesophageal reflux disease) (Chronic) Depressive disorder (Chronic) HTN (hypertension) (Chronic) Hypomagnesemia (Acute) CKD (chronic kidney disease) stage 3, GFR 30-59 ml/min (Chronic) Acute hypoxic respiratory failure (Acute) Atrial fibrillation (Chronic) Respiratory failure (Acute) Asthma (Chronic) Elevated BUN (Acute) CHF (congestive heart failure) (Acute) Atrial fibrillation with rapid ventricular response (Acute) COPD (chronic obstructive pulmonary disease) (Acute) Type 2 diabetes mellitus without complications (Chronic) Hypoxia (Acute) Chronic obstructive pulmonary disease with (acute) exacerbation (Acute) Medical History Loose left total knee arthroplasty HTN (hypertension) Contusion of toe, left Dermal mycosis Thyroid nodule Diabetic peripheral neuropathy Vitamin D deficiency Hyperparathyroidism HLD (hyperlipidemia) Obesity Anemia Leukocytosis Depressive disorder GERD (gastroesophageal reflux disease) Cellulitis Stress incontinence Afib Diabetes Cardiac pacemaker in situ placed 04/22/2022 in [place]. 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
--- NOTE | 2024-05-26 11:27 | PGE_ITS ---
Date of Service Date of service: 05/26/24 Time of Service: 11:27 Assessment and Plan Assessment and plan (1) Acute hypoxic respiratory failure: Status: Acute Assessment and plan: Multifactorial with congestive heart failure, evidence of A-fib with RVR on pacer interrogation, and COPD exacerbation. slowly responding to diuresis. repeat cxr, wean oxygen (2) CHF (congestive heart failure): Status: Acute Assessment and plan: last echo Apr 10, 2024 shows EF 50% with no WMA, RVSP 52 mmHg, no significant valvular disease. s/p AVR continue IV diuresis BID monitor I&O and daily weights closely follow kidney function and electrolytes (3) Hypomagnesemia: Status: Acute Assessment and plan: 2.1 after repletion (4) Atrial fibrillation: Status: Chronic Assessment and plan: Controlled to uncontrolled rate 90-120's interrogation of pacemaker by ED provider shows frequent rapid ventricular response atrial fibrillation as an outpatient. continue lopressor and diltiazem, will increase diltiazem back to home dose of 240 mg daily continue to monitor and adjust as needed. fully anticoagulated on apixaban (5) COPD (chronic obstructive pulmonary disease): Status: Acute Assessment and plan: continues wheezing despite diuresis, suspect exacerbation will repeat cxr continue scheduled duonebs, albuterol as needed add prednisone (6) Type 2 diabetes mellitus without complications: Status: Chronic Assessment and plan: blood sugar poorly controlled,. [id number] received steroids and anticipate will continue to stay elevated while on steroids. will add A1C continue blood sugar check ac/hs and will increase scale to resistant resume home basal insulin, add 15 units one time now. (7) CKD (chronic kidney disease) stage 3, GFR 30-59 ml/min: Status: Chronic Assessment and plan: at baseline, continue to monitor daily while diuresing avoid nephrotoxic drugs, renal dosing as needed. (8) HTN (hypertension): Status: Chronic Assessment and plan: blood pressure controlled continue monitor and adjust meds as needed (9) Cardiac pacemaker in situ: Status: Acute Assessment and plan: Chronic atrial fibrillation, mostly rate controlled though has recorded frequent episodes of rapid ventricular response. continue tele monitoring and adjust meds for rate control as needed. (10) GERD (gastroesophageal reflux disease): Status: Chronic Assessment and plan: Continue outpatient medical therapy. (11) Depressive disorder: Status: Chronic Assessment and plan: Continue outpatient medical therapy. (12) Yeast infection of the skin: Status: Acute Assessment and plan: skin folds/groins. add nystatin powder, routine skin care, interdry for skin folds as needed. . (13) On deep vein thrombosis (DVT) prophylaxis: Status: Acute Assessment and plan: fully anticoagulated on apixaban for afib. Subjective Subjective Patient reports: feels better, tolerating liquids well, tolerating a regular diet, shortness of breath (improving but still wheezy) and afebrile Interval history since last seen: sosa to gravity draining clear yellow urine Exam Narrative Exam Narrative: Obese female of stated age in no acute distress head is atraumatic eyes nonicteric noninjected EOMs intact oral mucosas moist neck with full range of motion respirations even and unlabored expiratory wheezing throughout no Rales appreciated cardiovascular regular rate and rhythm abdomen obese soft nontender. Bilateral lower extremities with edema left greater than right moves all extremities equally neurologic awake alert oriented no focal deficits psychiatric appropriate mood and affect Objective Last Vital Signs Temp 36.8 C 05/26/24 07:31 Pulse 112 H 05/26/24 09:07 Resp 28 H 05/26/24 09:07 BP 105/72 05/26/24 07:31 Pulse Ox 91 L 05/26/24 09:21 Laboratory Results - last 24 hr 05/25/24 05/25/24 05/25/24 20:08 20:25 21:03 WBC 12.07 H RBC 3.46 L Hgb 10.8 L Hct 33.6 L MCV 97 H MCH 31.2 MCHC 32.1 RDW 15.6 H Plt Count 262 MPV 11.5 H Immature Gran % 0.0 Neutrophils % 81.0 Lymphocytes % 8.0 Monocytes % 7.0 Eosinophils % 2.0 Basophils % 1.0 Nucleated RBC % 1.0 H Absolute Neutrophils 9.78 H Absolute Lymphocytes 0.97 L Absolute Monocytes 0.84 H Absolute Eosinophils 0.24 Absolute Basophils 0.12 RBC Morphology Normal VBG pH 7.40 VBG pCO2 52 H VBG pO2 50 VBG HCO3 32 H VBG Total CO2 30 H VBG O2 Saturation 83 VBG Base Excess 7 H VBG Lactate 1.4 Sodium 139 Potassium 4.1 Chloride 100 Carbon Dioxide 31.8 Anion Gap 7.2 BUN 26 H Creatinine 1.3 H Est GFR (CKD-EPI 2020) 42.09 Glucose 182 H Calcium 9.1 Magnesium 1.7 L Total Bilirubin 0.97 AST 33 ALT 31 Alkaline Phosphatase 126 H Troponin I 13 14 NT-Pro-B Natriuret Pep 2893 H Total Protein 7.5 Albumin 3.3 L TSH 2.95 Urine Color Urine Clarity Urine pH Ur Specific [address] Urine Protein Urine Ketones Urine Blood Urine Nitrite Urine Bilirubin Urine Urobilinogen Ur Leukocyte Esterase Urine RBC Urine WBC Ur Epithelial Cells Urine Crystals Urine Bacteria Urine Casts Urine Mucus Ur Culture Indicated? Urine Glucose COVID-19 Source NASOPHARYNX SARS-CoV-2 (PCR) Negative Influenza Type A (PCR) Negative Influenza Type B (PCR) Negative RSV (PCR) Negative 05/25/24 05/26/24 05/26/24 23:05 01:40 06:25 WBC 7.47 RBC 3.53 L Hgb 10.8 L Hct 34.4 L MCV 98 H MCH 30.6 MCHC 31.4 L RDW 15.8 H Plt Count 232 MPV 12.1 H Immature Gran % Neutrophils % Lymphocytes % Monocytes % Eosinophils % Basophils % Nucleated RBC % Absolute Neutrophils Absolute Lymphocytes Absolute Monocytes Absolute Eosinophils Absolute Basophils RBC Morphology VBG pH VBG pCO2 VBG pO2 VBG HCO3 VBG Total CO2 VBG O2 Saturation VBG Base Excess VBG Lactate Sodium 140 Potassium 3.8 Chloride 102 Carbon Dioxide 31.1 Anion Gap 6.9 BUN 26 H Creatinine 1.3 H Est GFR (CKD-EPI 2020) 42.09 Glucose 219 H Calcium 9.2 Magnesium 2.1 Total Bilirubin 1.10 H AST 27 ALT 32 Alkaline Phosphatase 125 H Troponin I 12 NT-Pro-B Natriuret Pep Total Protein 7.3 Albumin 3.1 L TSH Urine Color Yellow Urine Clarity Sl Cloudy Urine pH 5.[address] 1[address]010 Urine Protein Negative Urine Ketones Negative Urine Blood Large H Urine Nitrite Negative Urine Bilirubin Negative Urine Urobilinogen 0.2 Ur Leukocyte Esterase Negative Urine RBC 10-20 H Urine WBC 3-5 Ur Epithelial Cells Rare Urine Crystals Negative Urine Bacteria Rare Urine Casts Negative Urine Mucus Negative Ur Culture Indicated? No Urine Glucose Negative COVID-19 Source SARS-CoV-2 (PCR) Influenza Type A (PCR) Influenza Type B (PCR) RSV (PCR) Time Spent with Patient Time Spent with Patient: 35-49 minutes Time was spent: preparing to see the patient(eg.review tests), obtaining and/or reviewing separately otained hiistory, ordering medications,tests, procedures, indepentently interpreting results and counseling the patient
--- NOTE | 2024-05-26 11:54 | DI.VRAD_ITS ---
PROCEDURE INFORMATION: Exam: XR Chest Exam date and time: 05/26/2024 11:31 AM Age: 78 years old Clinical indication: Other: Wheezing after diuresis TECHNIQUE: Imaging protocol: Radiologic exam of the chest. Views: 2 views. COMPARISON: CR XR CHEST 2V PA LATERAL 05/25/2024 9:45 PM FINDINGS: Tubes, catheters and devices: Pacemaker Present left chest wall. Lungs: Low lung volumes. Bilateral lower lobe atelectasis. Pleural spaces: Bilateral pleural effusions. Heart/Mediastinum: TAVR. Stable cardiomegaly. Bones/joints: Unremarkable. IMPRESSION: Pulmonary vascular congestion. Dictated and Authenticated by: Robert Alexis MD. Orderin Juarez Chinchilla MD
[2024-05-26 12:21] LABS: Lab Add On Test DONE
[2024-05-26] MEDS: dilTIAZem CD 120 MG CAPCR 240 MG PO (12:29)
[2024-05-26] MEDS: Nystatin POWDER 15 GM JAR TP ×2 (12:30→21:01)
[2024-05-26] MEDS: Insulin Glargine 300 UNITS/3 ML PEN 15 UNITS SC (12:34)
[2024-05-26] MEDS: predniSONE 20 MG TAB 40 MG PO (12:35)
[2024-05-26 12:57] LABS: Hemoglobin A1C 7.4 % (<5.7)
--- NOTE | 2024-05-26 15:07 | NUR.NOTE ---
Nursing Note: PT requested bladder scan to ensure bladder is draining, bladder scan done at noted to be at 0ml, and sosa is patent and draining clear yellow urine.
[2024-05-26 16:59] LABS: Glucose 478 mg/dL (74-106)
[2024-05-26] MEDS: Insulin Glargine 300 UNITS/3 ML PEN 66 UNITS SC (17:57)
[2024-05-26] MEDS: DULoxetine 30 MG CAP PO (21:00)
[2024-05-26] MEDS: Atorvastatin 40 MG TAB 80 MG PO (21:00)
[2024-05-26 21:15] LABS: Glucose 433 mg/dL (74-106)
[2024-05-27] VITALS (17 sets, daily range): BP systolic 101–124; BP diastolic 69–83; PULSE 75–134; RESP 3–19; TEMP 36.3–37; O2SAT 87–97
[2024-05-27] MEDS: Insulin Aspart 300 UNITS/3 ML PEN 12 UNITS SC (01:28)
[2024-05-27] MEDS: Albuterol/Ipratropium 3 ML UPD VIAL UPD ×4 (01:47→19:47)
[2024-05-27 06:39] LABS: HCT 31.7 % (36.0-46.0); HGB 10.1 g/dL (11.2-15.7); MCH 30.6 pg (27.0-33.0); MCHC 31.9 % (32.0-36.0); MCV 96 fL (80-95); Platelet Count 260 10^3/uL (130-400); RDW 15.8 % (11.7-14.6); RDW-SD 54.9 fL; WBC 14.97 10^3/uL (4.4-10.8)
[2024-05-27 07:04] LABS: ALT 58 U/L (14-59); AST 28 U/L (15-37); Albumin 3.2 g/dL (3.4-5.0); Alkaline Phosphatase 140 U/L (46-116); Anion Gap 5.6 mmol/L (3-11); BUN 39 mg/dL (7-18); Bilirubin, Total 0.77 mg/dL (0.2-1.0); CO2 31.4 mmol/L (21.0-32.0); CREATININE 1.5 mg/dL (0.55-1.02); Calcium 9.4 mg/dL (8.5-10.1); Chloride 99 mmol/L (98-107); Estimated GFR 35.45 (mL/min/1.73m2); Glucose 197 mg/dL (74-106); Magnesium 2.2 mg/dL (1.8-2.4); Sodium 136 mmol/L (136-145); Total Protein 7.2 g/dL (6.4-8.2)
[2024-05-27] MEDS: predniSONE 20 MG TAB 40 MG PO (08:47)
[2024-05-27] MEDS: dilTIAZem CD 120 MG CAPCR 240 MG PO (08:48)
[2024-05-27] MEDS: Famotidine 20 MG TAB PO (08:48)
[2024-05-27] MEDS: traZODone 50 MG TAB PO (08:48)
[2024-05-27] MEDS: Apixaban 5 MG TAB PO ×2 (08:48→19:47)
[2024-05-27] MEDS: Sucralfate 1 GM TAB PO ×4 (08:48→19:47)
[2024-05-27] MEDS: Metoprolol 50 MG TAB 100 MG PO ×2 (08:48→19:47)
[2024-05-27] MEDS: Furosemide 100 MG/10 ML VIAL 60 MG IVP ×2 (08:49→17:13)
[2024-05-27] MEDS: Insulin Aspart 300 UNITS/3 ML PEN SC ×4 (08:50→22:18)
[2024-05-27] MEDS: Normal Saline Flush 10 ML SYR IVP ×2 (08:53→19:41)
--- NOTE | 2024-05-27 09:46 | CMPROGNOTE_ITS ---
Date of service: 05/27/24 Time of Service: 09:46 Care Management Progress Note Progress Note Text Progress Note Text: Jessa was sitting up in her chair when CM met with her. She was pleasant and engaged well in conversation, although she is hard of hearing. CM spoke to CHARLES Smith, today, who supports her in the community, and stated that she is signed up to attend [facility], although she isn't sure how often she is going. Per report, she is on room air, which is an improvement, and her sosa catheter was replaced yesterday. She reported that she has nursing; CM will contact [facility] to confirm. She also has caregivers provided by [facility]. CM will continue to follow. Discharge Potential Discharge Needs: PCP F/U Appt Anticipated Barriers to Discharge: None Identified Patient/Family Education Needs: Review discharge instructions, discuss Ask Me Three Transportation: Private vehicle Plan: Anticipate Jessa will return home with a resumption of her caregiver services. She will follow up with her PCP and plan of care and transport with a friend /family member or [facility]. CM will follow and continue to assess for discharge needs. Social Determinants of Health Screening Social Determinants of Health last assessed: 05/27/24 Will the Patient Participate in the Screening?: Yes Do you worry about having a steady place to live?: no Problems where you live: no known problems In the past 12 months, have you had to go without electric, gas, oil or water in your home?: no Have you or anyone in your house had to go without enough food to eat?: no Has lack of transportation kept you from medical appointments or from doing things needed for daily living?: no Has anyone in your life made you feel unsafe or unsupported?: no How hard is it for you to pay for the very basics like food, housing, medical care, and heating? Would you say it is:: Not hard at all Do you want help finding or keeping work or a job?: Yes, help keeping work If for any reason you need help with day-to-day activities such as bathing, preparing meals, shopping, managing finances, etc., do you get the help you need?: I get all the help I need How often do you feel lonely or isolated from those around you?: Sometimes Do you speak a language other than Azerbaijani at home?: Yes Does the patient want assistance with any of the above?: No Social Determinants of Health Comments(SDOH Details): Patient has home health aide for housekeeping and also HH Nurse comes couple times a week. Health Related Social Needs Health related social needs: problems finding work (Z56.9), feeling lonely/isolated (Z60.8) and education (Z55.6)
[2024-05-27] MEDS: Acetaminophen 325 MG TAB PO (12:21)
--- NOTE | 2024-05-27 14:01 | PGE_ITS ---
Date of Service Date of service: 05/27/24 Time of Service: 14:01 Assessment and Plan Assessment and plan (1) Acute hypoxic respiratory failure: Status: Acute Assessment and plan: Multifactorial with congestive heart failure, evidence of A-fib with RVR on pacer interrogation, and COPD exacerbation. slowly responding to diuresis. repeat cxr continues to have pulmonary vascular congestion, wean oxygen (2) CHF (congestive heart failure): Status: Acute Assessment and plan: last echo Apr 10, 2024 shows EF 50% with no WMA, RVSP 52 mmHg, no significant valvular disease. s/p AVR continue IV diuresis BID monitor I&O and daily weights closely 850 ml/down 1.7 kg follow kidney function and electrolytes Cr 1.5 @ baseline, lytes ok (3) Hypomagnesemia: Status: Acute Assessment and plan: 2.1 after repletion (4) Atrial fibrillation: Status: Chronic Assessment and plan: Controlled to uncontrolled rate 90-120's interrogation of pacemaker by ED provider shows frequent rapid ventricular response atrial fibrillation as an outpatient. continue lopressor and diltiazem continue to monitor and adjust as needed. fully anticoagulated on apixaban (5) COPD (chronic obstructive pulmonary disease): Status: Acute Assessment and plan: continues wheezing despite diuresis, suspect exacerbation continue scheduled duonebs, albuterol as needed Continue prednisone (6) Type 2 diabetes mellitus without complications: Status: Chronic Assessment and plan: blood sugar poorly controlled,. [id number] received steroids and anticipate will continue to stay elevated while on steroids. A1C 7.4 continue blood sugar check ac/hs and will increase scale to resistant resume home basal insulin (7) CKD (chronic kidney disease) stage 3, GFR 30-59 ml/min: Status: Chronic Assessment and plan: at baseline, continue to monitor daily while diuresing Cr 1.5 avoid nephrotoxic drugs, renal dosing as needed. (8) HTN (hypertension): Status: Chronic Assessment and plan: blood pressure controlled continue monitor and adjust meds as needed (9) Cardiac pacemaker in situ: Status: Acute Assessment and plan: Chronic atrial fibrillation, mostly rate controlled though has recorded frequent episodes of rapid ventricular response. continue tele monitoring and adjust meds for rate control as needed. (10) GERD (gastroesophageal reflux disease): Status: Chronic Assessment and plan: Continue outpatient medical therapy. (11) Depressive disorder: Status: Chronic Assessment and plan: Continue outpatient medical therapy. (12) Yeast infection of the skin: Status: Acute Assessment and plan: skin folds/groins. Continue nystatin powder, routine skin care, interdry for skin folds as needed. . (13) On deep vein thrombosis (DVT) prophylaxis: Status: Acute Assessment and plan: fully anticoagulated on apixaban for afib. Subjective Subjective Patient reports: no new complaints, feels better, tolerating liquids well, tolerating a regular diet, no bowel movement and afebrile; denies diarrhea, naus ea or vomiting Exam Narrative Exam Narrative: * General: Elderly female of stated age, no acute distress. * Head: Atraumatic. * Eyes: Non-icteric, non-injected. * Oral Mucosa: Moist. * Neck: Supple, full range of motion, no jugular venous distention . * Respiratory: Even and unlabored respirations, rales in the bases bilaterally, no wheezing. * Cardiovascular: Regular rate and rhythm. * Abdomen: Benign. * Extremities: No edema, moves all extremities. * Neurologic: Awake, alert, oriented, no focal deficits. * Psychiatric: Appropriate mood and affect. * Skin: No rashes or lesions. Objective Last Vital Signs Temp 36.8 C 05/27/24 11:14 Pulse 84 05/27/24 13:50 Resp 18 05/27/24 13:50 BP 116/83 05/27/24 11:14 Pulse Ox 91 L 05/27/24 13:50 Laboratory Results - last 24 hr 05/26/24 05/26/24 05/27/24 16:40 20:55 05:55 WBC 14.97 H RBC 3.30 L Hgb 10.1 L Hct 31.7 L MCV 96 H MCH 30.6 MCHC 31.9 L RDW 15.8 H Plt Count 260 MPV 12.0 H Sodium 136 Potassium 4.0 Chloride 99 Carbon Dioxide 31.4 Anion Gap 5.6 BUN 39 H Creatinine 1.5 H Est GFR (CKD-EPI 2020) 35.45 Glucose 478 H 433 H 197 H Calcium 9.4 Magnesium 2.2 Total Bilirubin 0.77 AST 28 ALT 58 Alkaline Phosphatase 140 H Total Protein 7.2 Albumin 3.2 L Time Spent with Patient Time Spent with Patient: 25-34 minutes Time was spent: preparing to see the patient(eg.review tests), ordering medications,tests, procedures, referring, communicating with other health resident care manager rn, indepentently interpreting results, counseling the patient and care coordination
[2024-05-27] MEDS: Insulin Glargine 300 UNITS/3 ML PEN 66 UNITS SC (17:12)
[2024-05-27] MEDS: Furosemide 40 MG/4 ML VIAL IVP (19:41)
[2024-05-27] MEDS: Atorvastatin 40 MG TAB 80 MG PO (19:47)
[2024-05-27] MEDS: DULoxetine 30 MG CAP PO (19:47)
[2024-05-27] MEDS: Nystatin POWDER 15 GM JAR TP (19:48)
[2024-05-27] MEDS: Metoprolol 5 MG/5 ML VIAL 2.5 MG IVP (23:47)
[2024-05-27] MEDS: Metoprolol 50 MG TAB PO (23:48)
[2024-05-28] VITALS (18 sets, daily range): BP systolic 104–124; BP diastolic 65–87; PULSE 72–125; RESP 2–20; TEMP 36.3–36.8; O2SAT 89–96
[2024-05-28] MEDS: Albuterol/Ipratropium 3 ML UPD VIAL UPD ×3 (02:11→13:50)
[2024-05-28] MEDS: Metoprolol 50 MG TAB PO ×3 (06:20→18:19)
[2024-05-28 07:02] LABS: Abs Immature Grans 0.07 10^3/uL (0.0-0.06); Absolute Eosinophil Count 0.07 10^3/uL (0.0-0.7); Absolute Lymphocyte Count 1.52 10^3/uL (1.2-3.4); Basophils % 0.2 %; Eosinophils % 0.4 %; HCT 31.9 % (36.0-46.0); HGB 10.3 g/dL (11.2-15.7); Immature Grans % 0.4 %; Lymphocytes % 9.3 %; MCHC 32.3 % (32.0-36.0); MCV 96 fL (80-95); Monocytes % 9.2 %; Neutrophils % 80.5 %; Nucleated RBC 0.6 % (0.0-0.3); Platelet Count 248 10^3/uL (130-400); RBC 3.32 10^6/uL (3.93-5.22); RDW 16.3 % (11.7-14.6); RDW-SD 57.1 fL
[2024-05-28 07:10] LABS: Anion Gap 5.6 mmol/L (3-11); BUN 43 mg/dL (7-18); CO2 31.4 mmol/L (21.0-32.0); CREATININE 1.5 mg/dL (0.55-1.02); Calcium 9.3 mg/dL (8.5-10.1); Chloride 100 mmol/L (98-107); Estimated GFR 35.45 (mL/min/1.73m2); Glucose 159 mg/dL (74-106); Potassium 3.9 mmol/L (3.5-5.1); Sodium 137 mmol/L (136-145)
[2024-05-28 07:14] LABS: Absolute Basophil Count 0.03 10^3/uL (0.0-0.2); Absolute Neutrophil Count 13.12 10^3/uL (1.2-6.7)
[2024-05-28] MEDS: Furosemide 100 MG/10 ML VIAL 60 MG IVP ×2 (08:46→16:42)
[2024-05-28] MEDS: Insulin Aspart 300 UNITS/3 ML PEN SC ×4 (08:46→22:20)
[2024-05-28] MEDS: Normal Saline Flush 10 ML SYR IVP ×4 (08:47→19:34)
[2024-05-28] MEDS: Nystatin POWDER 15 GM JAR TP ×2 (08:47→19:34)
[2024-05-28] MEDS: dilTIAZem CD 120 MG CAPCR 240 MG PO (08:48)
[2024-05-28] MEDS: predniSONE 20 MG TAB 40 MG PO (08:48)
[2024-05-28] MEDS: Famotidine 20 MG TAB PO (08:48)
[2024-05-28] MEDS: Sucralfate 1 GM TAB PO ×4 (08:48→19:34)
[2024-05-28] MEDS: Apixaban 5 MG TAB PO ×2 (08:48→19:29)
--- NOTE | 2024-05-28 14:47 | PGE_ITS ---
Date of Service Date of service: 05/28/24 Time of Service: 14:47 Assessment and Plan Assessment and plan (1) Acute hypoxic respiratory failure: Status: Acute Assessment and plan: Multifactorial with congestive heart failure, evidence of A-fib with RVR on pacer interrogation, and COPD exacerbation. slowly responding to diuresis. repeat cxr continues to have pulmonary vascular congestion, wean oxygen Echo tomorrow (2) CHF (congestive heart failure): Status: Acute Assessment and plan: last echo Apr 10, 2024 shows EF 50% with no WMA, RVSP 52 mmHg, no significant valvular disease. s/p AVR continue IV diuresis BID monitor I&O and daily weights closely follow kidney function and electrolytes Cr 1.5 (3) Hypomagnesemia: Status: Resolved Assessment and plan: 2.0 (4) Atrial fibrillation: Status: Chronic Assessment and plan: Controlled to uncontrolled rate 90-120's HR 150s today with metoprolol 5 mg IV with results HR down to 100 bpm AF interrogation of pacemaker by ED provider shows frequent rapid ventricular response atrial fibrillation as an outpatient. continue lopressor and diltiazem continue to monitor and adjust as needed. fully anticoagulated on apixaban (5) COPD (chronic obstructive pulmonary disease): Status: Acute Assessment and plan: continue scheduled duonebs, albuterol as needed Continue prednisone (6) Type 2 diabetes mellitus without complications: Status: Chronic Assessment and plan: blood sugar poorly controlled,. 150s received steroids and anticipate will continue to stay elevated while on steroids. A1C 7.4 continue blood sugar check ac/hs and will increase scale to resistant resume home basal insulin (7) CKD (chronic kidney disease) stage 3, GFR 30-59 ml/min: Status: Chronic Assessment and plan: at baseline, continue to monitor daily while diuresing Cr 1.5 avoid nephrotoxic drugs, renal dosing as needed. (8) HTN (hypertension): Status: Chronic Assessment and plan: blood pressure controlled continue monitor and adjust meds as needed (9) Cardiac pacemaker in situ: Status: Acute Assessment and plan: Chronic atrial fibrillation, mostly rate controlled though has recorded frequent episodes of rapid ventricular response. continue tele monitoring and adjust meds for rate control as needed. Metoprolol IV and oral (10) GERD (gastroesophageal reflux disease): Status: Chronic Assessment and plan: Continue outpatient medical therapy. (11) Depressive disorder: Status: Chronic Assessment and plan: Continue outpatient medical therapy. (12) Yeast infection of the skin: Status: Acute Assessment and plan: skin folds/groins. Continue nystatin powder, routine skin care, interdry for skin folds as needed. . (13) On deep vein thrombosis (DVT) prophylaxis: Status: Acute Assessment and plan: fully anticoagulated on apixaban for afib. Subjective Subjective Patient reports: no new complaints, tolerating liquids well, tolerating a regular diet, no flatus, bowel movement and nausea (complained of some nausea); denies flatus, diarrhea or vomiting Interval history since last seen: Jessa c/o some nausea today after lunch, no vomiting, no diarrhea, afebrile. Exam Narrative Exam Narrative: * General: Elderly female of stated age, no acute distress. * Head: Atraumatic. * Eyes: Non-icteric, non-injected. * Oral Mucosa: Moist. * Neck: Supple, full range of motion, no jugular venous distention . * Respiratory: Even and unlabored respirations, rales in the bases bilaterally, no wheezing. * Cardiovascular: Regular rate and rhythm. * Abdomen: Benign. * Extremities: No edema, moves all extremities. * Neurologic: Awake, alert, oriented, no focal deficits. * Psychiatric: Appropriate mood and affect. * Skin: No rashes or lesions. Objective Last Vital Signs Temp 36.5 C 05/28/24 11:17 Pulse 98 H 05/28/24 14:35 Resp 18 05/28/24 14:35 BP 111/78 05/28/24 14:35 Pulse Ox 93 05/28/24 14:35 Laboratory Results - last 24 hr 05/28/24 06:36 WBC 16.30 H RBC 3.32 L Hgb 10.3 L Hct 31.9 L MCV 96 H MCH 31.0 MCHC 32.3 RDW 16.3 H Plt Count 248 MPV 12.0 H Immature Gran % 0.4 Neutrophils % 80.5 Lymphocytes % 9.3 Monocytes % 9.2 Eosinophils % 0.4 Basophils % 0.2 Nucleated RBC % 0.6 H Absolute Neutrophils 13.12 H Absolute Lymphocytes 1.52 Absolute Monocytes 1.50 H Absolute Eosinophils 0.07 Absolute Basophils 0.03 Sodium 137 Potassium 3.9 Chloride 100 Carbon Dioxide 31.4 Anion Gap 5.6 BUN 43 H Creatinine 1.5 H Est GFR (CKD-EPI 2021) 35.45 Glucose 159 H Calcium 9.3 Magnesium 2.0 Time Spent with Patient Time Spent with Patient: 25-34 minutes Time was spent: preparing to see the patient(eg.review tests), ordering medications,tests, procedures, referring, communicating with other health pediatric critical care nurse, indepentently interpreting results, counseling the patient and care coordination
[2024-05-28] MEDS: Metoprolol 5 MG/5 ML VIAL IVP (15:07)
--- NOTE | 2024-05-28 15:25 | PDOC.CMPRO ---
Date of service: 05/28/24 Time of Service: 15:25 Care Management Progress Note Progress Note Text Progress Note Text: Jessa was sitting up in her chair when CM met with her. She stated that she wasn't feeling right this afternoon. Her RN was in the room giving her metoprolol, as her HR was reportedly in the 130's. CM contacted and verified that she has current HH RN, which will be resumed upon discharge. She is also on the [facility] program. CM will continue to follow. Discharge Potential Discharge Needs: PCP F/U Appt Anticipated Barriers to Discharge: None Identified Patient/Family Education Needs: Review discharge instructions, discuss Ask Me Three Transportation: RCT Plan: Anticipate Jessa will return home with a resumption of her caregiver services. She will follow up with her PCP and plan of care and transport with a friend/family member or RCT. CM will follow and continue to assess for discharge needs. Social Determinants of Health Screening Social Determinants of Health last assessed: 05/28/24 Will the Patient Participate in the Screening?: Yes Do you worry about having a steady place to live?: no Problems where you live: no known problems In the past 12 months, have you had to go without electric, gas, oil or water in your home?: no Have you or anyone in your house had to go without enough food to eat?: no Has lack of transportation kept you from medical appointments or from doing things needed for daily living?: no Has anyone in your life made you feel unsafe or unsupported?: no How hard is it for you to pay for the very basics like food, housing, medical care, and heating? Would you say it is:: Not hard at all Do you want help finding or keeping work or a job?: Yes, help keeping work If for any reason you need help with day-to-day activities such as bathing, preparing meals, shopping, managing finances, etc., do you get the help you need?: I get all the help I need How often do you feel lonely or isolated from those around you?: Sometimes Do you speak a language other than Romansh at home?: Yes Does the patient want assistance with any of the above?: No Social Determinants of Health Comments([facility] Details): Patient has home health aide for housekeeping and also Nurse comes couple times a week. Health Related Social Needs Health related social needs: problems finding work (Z56.9), feeling lonely/isolated (Z60.8) and education (Z55.6)
--- NOTE | 2024-05-28 15:33 | CHAPLAIN ---
Jessa was up in the chair when I visited. She was pleasant, a little hard of hearing because her hearing aids aren't charged. Jessa said she moved her from [place] a few years ago to closer to family. Her son lives in [place], but she doesn't have his complete phone number to call him. I explained my role and offered support.
[2024-05-28] MEDS: DULoxetine 30 MG CAP PO (19:29)
[2024-05-28] MEDS: Atorvastatin 40 MG TAB 80 MG PO (19:29)
[2024-05-28] MEDS: Insulin Glargine 300 UNITS/3 ML PEN 66 UNITS SC (19:30)
[2024-05-28] MEDS: traZODone 50 MG TAB PO (19:35)
[2024-05-29] VITALS (7 sets, daily range): BP systolic 102–119; BP diastolic 66–83; PULSE 80–114; RESP 5–20; TEMP 36.3–36.8; O2SAT 93–96
--- NOTE | 2024-05-29 | DI.US_ITS ---
APPROVED REPORT EXAM: Comprehensive 2D, Doppler, and color-flow Echocardiogram Patient Location: In-Patient Ed Case Manager: Ariela Sy RT (R) (CT) [facility] Rhythm: Atrial Fibrillation Indications: CHF. Other Information Study Quality: Technically Limited Conclusion Moderate concentric left ventricular hypertrophy. Ejection fraction is 40 to 45%. Segmental wall mo tion abnormalities are noted as described above Normal right ventricular size and function Both atria are normal in size Bioprosthetic aortic valve with appropriate gradients Estimated right ventricular systolic pressure is 40 to 45 mmHg Compared to a study from April there is no significant interval change Wall motion Left Ventricle The left ventricle is normal size. Left ventricular systolic function is mild to moderately decreased . Moderate concentric left ventricular hypertrophy. The LV apex is hypo to akinetic. The remaining wa lls appear normokinetic with beat to beat variability. There is no ventricular septal defect visualiz ed. LVEF is 40-45%. Right Ventricle The right ventricle is normal size. The right ventricular systolic function is normal. There is reese l right ventricular wall thickness. Pacemaker lead is present in the right ventricle. Atria The left atrium size is normal. The right atrium size is normal. Pacemaker lead is present in the rig ht atrium. The interatrial septum is intact with no evidence for an atrial septal defect. Aortic Valve No aortic regurgitation is present. Bioprosthetic aortic valve is present. Normal prosthetic aortic v alve gradient. Mitral Valve The mitral valve chordae are thickened and/or calcified. No evidence of mitral valve stenosis. Trace mitral regurgitation. Tricuspid Valve The tricuspid valve is normal in structure. Mild tricuspid regurgitation. The RVSP is 40-45 mmHg. The re is mild pulmonary hypertension. Pulmonic Valve Pulmonic valve is not well visualized. Trace pulmonic regurgitation. Great Vessels The aortic root is normal in size. The pulmonary artery is normal. Ascending aorta is normal in calib er. The IVC is dilated and collapses >50% with inspiration. Pericardium Prominent anterior epicardial fat pad is present. 2D Dimensions IVSD d PLAX 1.77 cm F: 0.6-1.0 Ao Root d 2.81 cm F: 2.7 - 3.3 LVPW d PLAX 1.53 cm F: 0.6 - 1.0 Ao Asc Diam d 2.99 cm F: 2.3 - 3.1 LVID d PLAX 2.86 cm F: 3.8 - 5.2 IVC Diam exp d SLAX 1.6 cm LVDs 2.26 cm F: 2.2 - 3.5 LV EF Teichholz 44.6 % FS 21.13 % LV EDV (Teich) 31.1 mL LV ESV (Teich) 17.3 mL LA Volume LA Length A4C 5.7 cm LA Length A2C 5.4 cm LA Area A4C s 17.14 cm2 LA Area A2C s 18.27 cm2 LA Vol A4C A-L 43.74 mL LA Vol A2C A-L 52.19 mL LA Vol Biplane A-L 49.0 mL LA Vol/BSA A4C A-L LA Vol/BSA A2C A-L LA Vol/BSA BP A-L 24.2 mL/m2 LA Vol A4C MOD 40.8 mL LA Vol A2C MOD 49.0 mL LA Vol BP MOD 45.8 mL LV Diastology MV E' medial 0.065 (>0.07 m/s) MV E Vmax 1.72 (0.4-1.3 m/s) MV E/E' MED 26.37 (<14) MV E' lateral 0.071 (>0.1 m/s) MV E/E' LAT 24.19 (<14) MV E' Average 0.068 m/s MV E/E'(average) 25.24 Aortic Valve AoV Vmax 1.50 m/s LVOT Vmax 0.82 m/s AoV Peak Grad 9.1 mmHg LVOT Peak Grad 2.7 mmHg AoV Area (Vmax) 1.22 cm2 LVOT VTI 0.147 m AoV VTI 0.288 m LVOT Mean Grad 1.4 mmHg AoV Mean Bertin. 0.99 m/s LVOT SV 33.05 mL AoV Mean Grad 4.6 mmHg LVOT Diam s 1.65 cm AoV Area (VTI) 1.15 cm2 AV Regurg Peak Gr. 9.05 mmHg Velocity Ratio 0.55 Mitral Valve MV DT 274 (160-240 msec) MV Vmax TIPS 2.16 m/s MV Mean Grad 7.0 (<2mmHg) MV PHT 97 msec MV Area PHT 2.28 cm2 MV VTI 0.302 m Tricuspid Valve RA Pressure 8.00 mmHg TR Vmax 3.03 m/s TV S' 0.09 m/s TR Peak Grad 36.6 mmHg RVSP (TR) 44.6 mmHg
[2024-05-29] MEDS: Metoprolol 50 MG TAB PO ×3 (00:37→12:09)
[2024-05-29 07:04] LABS: Abs Immature Grans 0.06 10^3/uL (0.0-0.06); Absolute Eosinophil Count 0.03 10^3/uL (0.0-0.7); Absolute Lymphocyte Count 1.31 10^3/uL (1.2-3.4); Absolute Monocyte Count 1.45 10^3/uL (0.1-0.8); Absolute Neutrophil Count 9.73 10^3/uL (1.2-6.7); Basophils % 0.2 %; Eosinophils % 0.2 %; HCT 34.4 % (36.0-46.0); HGB 11.1 g/dL (11.2-15.7); Immature Grans % 0.5 %; Lymphocytes % 10.4 %; MCH 30.7 pg (27.0-33.0); MCHC 32.3 % (32.0-36.0); MCV 95 fL (80-95); MPV 12.5 fL (8.0-11.0); Monocytes % 11.5 %; Neutrophils % 77.2 %; Nucleated RBC 0.3 % (0.0-0.3); Platelet Count 264 10^3/uL (130-400); RBC 3.62 10^6/uL (3.93-5.22); RDW-SD 55.8 fL
[2024-05-29 07:14] LABS: Absolute Basophil Count 0.03 10^3/uL (0.0-0.2)
[2024-05-29 07:25] LABS: Anion Gap 7.8 mmol/L (3-11); BUN 48 mg/dL (7-18); CO2 33.2 mmol/L (21.0-32.0); CREATININE 1.6 mg/dL (0.55-1.02); Calcium 9.5 mg/dL (8.5-10.1); Chloride 100 mmol/L (98-107); Estimated GFR 32.81 (mL/min/1.73m2); Glucose 174 mg/dL (74-106); Potassium 3.7 mmol/L (3.5-5.1); Sodium 141 mmol/L (136-145)
[2024-05-29] MEDS: Furosemide 100 MG/10 ML VIAL 60 MG IVP ×2 (08:23→16:41)
--- NOTE | 2024-05-29 08:26 | W.SPSTE ---
Date of service: 05/29/24 Time of Service: : Subjective Clinical (Bedside) Swallow Evaluation - Inpatient Speech Language Pathology Referred by: Birgit Cohen Start time: :00 End time: : Total patient contact: 25 min Referral Type: Routine Swallow Consult Precautions: Standard, DNR/DNI Reason for Referral/HPI: Patient is a 78 y/o F with history of COPD, DM2, GERD, [place], CABG, AVR with pacemaker, CHF and atrial fibrillation, admitted several days ago with shortness of breath and hypoxemia, found in ED to be in CHF exacerbation. Per RN, yesterday the patient complained of been unable to swallow food after a breathing treatment was completed. Initially on admit she required 4L of O2 but she is now tolerating room air. ACCOUNT RESOLUTION EXPERT IMPRESSIONS & RECOMMENDATIONS: FURTHER INPATIENT ACCOUNT RESOLUTION EXPERT SERVICES: Patient to be followed while on unit x1-2 to ensure diet tolerance and reinforce education. DISCHARGE RECOMMENDATIONS: Consider outpatient MBSS orders of concerns persist ASSESSMENT: Patient demonstrates likely mild chronic oral-pharyngeal dysphagia in setting of likely reduced respiratory function/coordination, dry mouth, with possible pharyngo-esophageal component in setting of GERD. While she reports baseline symptoms of pharyngeal stasis and occasional coughing episodes with thin liquids (~1x weekly), she demonstrates good tolerance of solids and liquids this date. She does have 1 episode of possible aspiration/penetration with liquids but with very strong cough response. This occurred when she was simultaneously chewing and attempting to drink sip of liquid before swallowing solids. When using strategies to take one bite/sip at a time and complete each swallow before proceeding, s/sx aspiration are eliminated and she is able to tolerate large volumes thin liquids consecutively without further episodes. Diet modification is indicated as follows for the purpose of reduced risk of aspiration, reduced risk of choking, reduced mastication abilities, reduced oral residue, reduced pharyngeal stasis, energy conservation , impulsive or unsafe eating behaviors. Diet Recommendations: ? SOLIDS: 6-Soft & Bite-Sized Solids - with extra sauces/gravies for dry foods Rhome ok at breakfast. LIQUIDS: 0-Thin Liquids MEDICATIONS: Whole 1 at a time With 4-Purees Alter medications only as advised by MD or Pharmacist RISK MANAGEMENT: Level of Assistance/Supervision: Intermittent supervision for all PO intake, for strategy/safety reminders as below Positioning and environment: PO intake only when awake/alert? Reduce auditory and/or visual distractions when eating Up to chair Oral hygiene BID/2x per day Using friction with toothbrush on all oral structures as tolerated Strategies/Adaptations/Assistive Equipment: Small sips one at a time Small bites one at a time Slow rate of intake Ensure mouth is clear before proceeding with next bite/sip Reflux Precautions: Small+frequent meals throughout day Maintain fully upright position at least 30 minutes after meals Avoid meals/snacks 2-3 hours prior to reclining/sleeping Sleep with head of bed elevated to reduce likelihood of nocturnal reflux Education Provided to: Nursing Patient Topics Addressed: definition and impacts of aspiration impact of current diagnoses on swallow function role of ACCOUNT RESOLUTION EXPERT in management of swallow disorders rationale and instruction for additional risk management strategies as above SUBJECTIVE: Patient received: alert/awake. Agreeable to evaluation. Pain Reported n/a Baseline Swallow Function: Patient reports dry foods getting stuck in her throat occasionally at baseline. She is edentulous and has to avoid tougher solids like nuts, raw carrots, some meats. She also endorses occasional (~1x weekly) sensation of choking on liquids. Usually, if food or pills get stuck in her throat she can get it down if she keeps swallowing. She endorses reflux/heartburn. OBJECTIVE Patient positioning: Up to chair/90 degrees Respiratory status: Room air, appears dyspneic at times Orientation/Mental status: Oriented to self, Oriented to situation, Oriented to day, appears to be a reliable quantitative equity head, recall of recent events is intact. Speech: WFL articulation but with some dysphonia - hoarseness/roughness and perceived low breath support. Oral Mechanism Examination: Dentition: Edentulous Oral mucosa: Dry ? Cranial Nerve Assessment: CN V ? Trigeminal Facial Sensation WNL Jaw Strength/ROM WNL ?WNL CN VII- Facial WNL labial ROM, strength, coordination. WNL lingual sensation WNL CN IX ? Glossopharyngeal WNL palatal elevation with phonation. No evidence of nasal emissions WNL CN X ? Vagus WNL Vocal quality and volume. Strong/sharp volitional cough WNL CX XII ? Hypoglossal WNL lingual ROM, strength, coordination WNL PO Intake: Trials Assessed: IDDSI 0 Thin Liquids IDDSI 7EC Easy to Chew Solid IDDSI 7 Regular Solid Oral Phase Findings: Difficulty chewing Residue - posterior tongue (likely 2/2 dry mouth) Pharyngeal Phase Findings: Reduced hyolaryngeal elevation/excursion (difficult to palpate 2/2 anatomy) Cough after swallow x1 when managing multiple textures (takes sip of coffee before swallowing bites of food) No cough with 3 oz water test Esophageal Phase Findings: ? No observed or reported symptoms at bedside ? [place] Swallow Protocol Results: PASS Complete/uninterrupted without s/sx aspiration PLAN: Frequency: 1-2x weekly to ensure diet tolerance/until goals met. Goals: Spinner Operator Goals: Patient will remain free from aspiration-related illness, malnutrition, and dehydration. Short Term Goals: Patient will tolerate Soft/Bite Size Diet and Thin liquids without overt s/s aspiration across 2/2 visits. ACCOUNT RESOLUTION EXPERT CPT Code: 21586 Clinical Swallowing Evaluation
[2024-05-29] MEDS: Normal Saline Flush 10 ML SYR IVP ×2 (08:27→16:42)
[2024-05-29] MEDS: Insulin Aspart 300 UNITS/3 ML PEN SC ×3 (08:28→17:21)
[2024-05-29] MEDS: Nystatin POWDER 15 GM JAR TP (08:29)
[2024-05-29] MEDS: predniSONE 20 MG TAB 40 MG PO (08:29)
[2024-05-29] MEDS: dilTIAZem CD 120 MG CAPCR 240 MG PO (08:29)
[2024-05-29] MEDS: Famotidine 20 MG TAB PO (08:29)
[2024-05-29] MEDS: Sucralfate 1 GM TAB PO ×3 (08:29→16:42)
[2024-05-29] MEDS: Apixaban 5 MG TAB PO (08:30)
[2024-05-29] MEDS: Albuterol/Ipratropium 3 ML UPD VIAL UPD (08:42)
--- NOTE | 2024-05-29 13:58 | PDOC.CMPRO ---
Date of service: 05/29/24 Time of Service: 13:58 Care Management Progress Note Discharge Potential Discharge Needs: PCP F/U Appt Anticipated Barriers to Discharge: None Identified Patient/Family Education Needs: Review discharge instructions, discuss Ask Me Three Transportation: Private vehicle Plan: Anticipate Jessa will return home with a resumption of her caregiver services. She will follow up with her PCP and plan of care and transport with a friend/family member or RCT. CM will follow and continue to assess for discharge needs. Social Determinants of Health Screening Social Determinants of Health last assessed: 05/29/24 Will the Patient Participate in the Screening?: Yes Do you worry about having a steady place to live?: no Problems where you live: no known problems In the past 12 months, have you had to go without electric, gas, oil or water in your home?: no Have you or anyone in your house had to go without enough food to eat?: no Has lack of transportation kept you from medical appointments or from doing things needed for daily living?: no Has anyone in your life made you feel unsafe or unsupported?: no How hard is it for you to pay for the very basics like food, housing, medical care, and heating? Would you say it is:: Not hard at all Do you want help finding or keeping work or a job?: Yes, help keeping work If for any reason you need help with day-to-day activities such as bathing, preparing meals, shopping, managing finances, etc., do you get the help you need?: I get all the help I need How often do you feel lonely or isolated from those around you?: Sometimes Do you speak a language other than Hebrew at home?: Yes Does the patient want assistance with any of the above?: No Social Determinants of Health Comments([facility] Details): Patient has home health aide for housekeeping and also HH Nurse comes couple times a week. Health Related Social Needs Health related social needs: problems finding work (Z56.9), feeling lonely/isolated (Z60.8) and education (Z55.6)
--- NOTE | 2024-05-29 15:56 | DSE_ITS ---
Date of service: 05/29/24 Time of Service: 15:56 DS: Diagnosis Discharge Diagnosis (1) Acute hypoxic respiratory failure: Status: Acute (2) CHF (congestive heart failure): Status: Acute (3) Hypomagnesemia: Status: Resolved (4) Atrial fibrillation: Status: Chronic (5) COPD (chronic obstructive pulmonary disease): Status: Acute (6) Type 2 diabetes mellitus without complications: Status: Chronic (7) CKD (chronic kidney disease) stage 3, GFR 30-59 ml/min: Status: Chronic (8) HTN (hypertension): Status: Chronic (9) Cardiac pacemaker in situ: Status: Acute (10) GERD (gastroesophageal reflux disease): Status: Chronic (11) Depressive disorder: Status: Chronic (12) Yeast infection of the skin: Status: Acute (13) On deep vein thrombosis (DVT) prophylaxis: Status: Acute Discharge Plan Disposition Patient Disposition: Home Condition: Improving Discharge Details Reason For Visit: Acute Hypoxic Respiratory Failure with Exacerbatio Admit Date/Time: 05/25/24 22:25 Admit Provider: Jose Vasquez Attending Provider: Jose Vasquez Primary Care Provider: Zeus Hebert Hospital Course Hospital Course: History and Presentation: The patient was last hospitalized in April 2024 for a CHF exacerbation with atrial fibrillation and rapid ventricular response. She has a history of myocardial infarction, coronary artery bypass grafting, aortic valve replacement, and a pacemaker, which was interrogated in the ED, revealing frequent episodes of tachycardia with atrial fibrillation. She presented to the ED with shortness of breath for over 24 hours and new onset hypoxemia at home. The patient was started on supplemental oxygen (4L via nasal cannula) and was evaluated for controlled ventricular rate with atrial fibrillation. Clinical Course: Upon evaluation, the patient was found to have a CHF exacerbation confirmed by chest x-ray and POCUS. She was on 60 mg of Lasix daily at home but had missed doses due to increased urinary frequency and difficulty reaching the bathroom. A Johnson catheter was placed. The patient?s vital signs were stable with negative troponins. A low magnesium level was noted and was repleted. Creatinine appeared stable, and her chronic kidney disease was monitored. The patient responded well to diuresis and was not continued on IV steroids. Ongoing treatment included aggressive diuresis with IV Lasix, correction of e lectrolyte abnormalities, and management of her chronic conditions. Discharge Medications: * Lasix 40 mg twice daily (take before 3 pm) * Eliquis (continue current dosage) * Metoprolol (continue current dosage) * Diltiazem (split dose to avoid hypotension) * Prednisone (continue for 5 days) Disposition and Follow-Up Instructions: * Follow-up with PCP in 1 week to reassess the patient?s clinical status, electrolytes, and renal function. * Home Health Nursing: Resume services to monitor and assist with medication compliance and overall health management. * Electrolytes: Follow-up blood draw in 1 week to monitor electrolytes, particularly magnesium. * Cardiology: Review pacemaker interrogation and optimize atrial fibrillation rate control with Dr. Tompkins as an outpatient. Final Diagnosis: * Acute hypoxic respiratory failure ? secondary to CHF exacerbation and possible COPD exacerbation. * CHF (congestive heart failure) ? exacerbation. * Hypomagnesemia ? secondary to Lasix therapy. * Atrial fibrillation ? controlled rate but with frequent rapid ventricular response episodes. * COPD ? chronic with slight exacerbation. * Type 2 diabetes mellitus ? managed with insulin sliding scale. * Chronic kidney disease (stage 3) ? stable. * Hypertension ? continue outpatient therapy. * Cardiac pacemaker in situ ? atrial fibrillation with chronic rate control. * GERD ? managed with outpatient therapy. * Depressive disorder ? continued outpatient therapy. Recommendations: * Continue current outpatient medical management for chronic conditions. * Increase Lasix dose for better management of fluid overload and CHF exacerbation. * Follow-up with primary care and specialists as scheduled. Patient's condition was stable at the time of discharge. Home Meds and New Rx's Prescriptions: New prednisone 20 mg Tablet 40 mg PO DAILY Qty: 10 0RF Continued sucralfate 1 gram tablet 1 g PO QID metoprolol tartrate 100 mg tablet 100 mg PO BID Qty: 180 3RF diltiazem HCl 240 mg capsule,extended release 24hr 240 mg PO DAILY Qty: 90 3RF atorvastatin 80 mg tablet 80 mg PO DAILY duloxetine 30 mg capsule,delayed release(DR/EC) 30 mg PO QPM Eliquis 5 mg tablet 5 mg PO BID famotidine 20 mg tablet 20 mg PO DAILY glipizide 5 mg tablet 5 mg PO DAILY insulin glargine [Lantus Solostar U-100 Insulin] 100 unit/mL (3 mL) insulin pen 66 unit subcut QPM trazodone 50 mg tablet 50 mg PO HS Ozempic 0.25 mg or 0.5 mg (2 mg/3 mL) pen injector 0.25 mg SUBCUT .weekly Patient Comments: 04/11/24 - has not started yet per patient Changed furosemide 40 mg tablet 40 mg PO BID Qty: 0 0RF Discharge Instructions Instructions: Furosemide, Prednisone Additional Instructions: Continue prednisone for 5 days. Increase furosemide (Lasix to 40 mg twice a day - take before 3 pm) You should have your blood drawn in one week to check your electrolytes. Follow up with PCP. [facility] Stand Alone Forms: Nursing Discharge Form Referrals: Zeus Hebert [Primary Care Provider] - (post hospitalization visit with in 10 days. Recommend BMP in 1 week. PCP office will give you a call to set up a follow up appointment. ) Activity:: Activity as Tolerated Equipment/Supplies:: No Equipment Needed Diet:: Heart healthy diabetic Discharge Orders Discharge Orders: Discharge Order (Routine); Ordered 05/29/24 Ordered By: Birgit Cohen Other Ambulatory Orders: Basic Metabolic Panel (Routine) Timeframe: 1 Week Facility: [facility] - Location: Laboratory Outpatient - [facility] Ordered By: Birgit Cohen Magnesium (Routine) Timeframe: 1 Week Facility: [facility] - Location: Laboratory Outpatient - [facility] Ordered By: Birgit Cohen Discharge Data Discharge Date/Time-TO BE ENTERED AT DEPARTURE: 05/29/24 17:58 DS: Summary Time Spent with Patient providing and/or coordinating discharge services: Greater than 30 minutes Status at Discharge Functional status at discharge: uses cane/walker Overall status at discharge: patient is progressing back to baseline Mental Status: mental status grossly normal Speech and Movement: speech and movement normal Mood: congruent mood Affect: normal affect Quality:SDOH Health Related Social Needs: Health related social needs housing instability, house d, with risk of homelessness (Z59.811), education (Z55.6) Exam Narrative Exam Narrative: * General: Elderly female of stated age, no acute distress. * Head: Atraumatic. * Eyes: Non-icteric, non-injected. * Oral Mucosa: Moist. * Neck: Supple, full range of motion, no jugular venous distention . * Respiratory: Even and unlabored respirations, clear bilaterally, no rales, no wheezing. * Cardiovascular: Regular rate and rhythm. * Abdomen: Benign. * Extremities: No edema, moves all extremities. * Neurologic: Awake, alert, oriented, no focal deficits. * Psychiatric: Appropriate mood and affect. * Skin: No rashes or lesions. Psych Mental Status: mental status grossly normal Speech and Movement: speech and movement normal Mood: congruent mood Affect: normal affect DS: Data Vitals/I&O Vitals and I&O: Vital Signs Temperature 36.3 C L 05/29/24 08:06 Temperature Source Temporal Artery Scan 05/29/24 08:06 Pulse 95 H 05/29/24 10:15 Pulse Rhythm Irregular 05/25/24 23:31 Respiratory Rate 14 05/29/24 10:15 Respiratory Effort Short of Breath, Incrsd Work of Breathing 05/25/24 23:31 Respiratory Depth Shallow 05/25/24 23:31 Respiratory Pattern Tachypnea 05/25/24 23:31 Blood Pressure 102/73 05/29/24 08:06 Blood Pressure Position Sitting 05/25/24 19:52 Pulse Oximetry 93 05/29/24 10:15 Respiratory End-tidal CO2 35 05/25/24 20:30 Oxygen Delivery Method Room Air 05/29/24 10:15 Oxygen Flow Rate 0 05/29/24 10:15 Pain Level 0 05/29/24 09:19 Comment Pulse taken apically, it continues to be irregular. 05/28/24 15:43 Intake & Output 05/28/24 05/29/24 05/29/24 23:59 11:59 23:59 Intake Total 20 / 140 1350 / 1350 Output Total 2850 / 4050 1200 / 2650 1450 / 2650 Balance -2830 / -3910 150 / -1300 -1450 / -1300 Weight 101.6 kg Intake: IV 20 / 20 Oral 1350 / 1350 Output: Urine 2850 / 4050 1200 / 2650 1450 / 2650 Other: Urine Color Yellow Yellow Pale Urine Appearance Clear Clear Clear Urine Odor None Comment Johnson leaking urine. Withdrew 10ml NS from balloon and replaced 10ml. Provided a brief and change of micky pad w/ RADHA Thomas. Patient was able to void 200 ml after FC was DC. Pls. see notes on Q shift voiding assessment. Stool Size Moderate Small Stool Characteristics Soft Soft Brown Brown Data Completed and Pending Labs on day of discharge: Labs from last 24 hours 05/29/24 06:02 WBC 12.60 H RBC 3.62 L Hgb 11.1 L Hct 34.4 L MCV 95 MCH 30.7 MCHC 32.3 RDW 16.0 H Plt Count 264 MPV 12.5 H Immature Gran % 0.5 Neutrophils % 77.2 Lymphocytes % 10.4 Monocytes % 11.5 Eosinophils % 0.2 Basophils % 0.2 Nucleated RBC % 0.3 Absolute Neutrophils 9.73 H Absolute Lymphocytes 1.31 Absolute Monocytes 1.45 H Absolute Eosinophils 0.03 Absolute Basophils 0.03 Sodium 141 Potassium 3.7 Chloride 100 Carbon Dioxide 33.2 H Anion Gap 7.8 BUN 48 H Creatinine 1.6 H Est GFR (CKD-EPI 2020) 32.81 Glucose 174 H Calcium 9.5 Magnesium 2.0 PFSH All Active Problems (Updated 05/29/24 @ 16:00 by Birgit Cohen NP) NATHAN (obstructive sleep apnea) (Chronic) Yeast infection of the skin (Acute) On deep vein thrombosis (DVT) prophylaxis (Acute) Cardiac pacemaker in situ (Acute) placed 04/22/2022 in [place]. Kaylee ZURITA [id number] SERIAL # [id number] ENTERED 04/17/24 GERD (gastroesophageal reflux disease) (Chronic) Depressive disorder (Chronic) HTN (hypertension) (Chronic) CKD (chronic kidney disease) stage 3, GFR 30-59 ml/min (Chronic) Acute hypoxic respiratory failure (Acute) Atrial fibrillation (Chronic) Respiratory failure (Acute) Asthma (Chronic) Elevated BUN (Acute) CHF (congestive heart failure) (Acute) Atrial fibrillation with rapid ventricular response (Acute) COPD (chronic obstructive pulmonary disease) (Acute) Type 2 diabetes mellitus without complications (Chronic) Hypoxia (Acute) Chronic obstructive pulmonary disease with (acute) exacerbation (Acute) Medical History Loose left total knee arthroplasty HTN (hypertension) Contusion of toe, left Dermal mycosis Thyroid nodule Diabetic peripheral neuropathy Vitamin D deficiency Hyperparathyroidism HLD (hyperlipidemia) Obesity Anemia Leukocytosis Depressive disorder GERD (gastroesophageal reflux disease) Cellulitis Stress incontinence Afib Diabetes Cardiac pacemaker in situ placed 04/22/2022 in [place]. Kaylee ZURITA [id number] SERIAL # [id number] ENTERED 04/17/24 Anxiety Surgical History S/P AVR replaced with bovine valve Hx of CABG Family History Father Bone cancer Mother Myocardial infarction Brother Myocardial infarction Social History Smoking/Tobacco Use Status: Former Tobacco Use Smoking risk assessment performed?: Yes Alcohol Intake: never Drug use: Never Substance use type: does not use Housing: apartment Do you feel safe at home: Yes Do you feel safe in your relationship?: Yes Time Spent with Patient Time Spent with Patient: 45-69 minutes Time was spent: preparing to see the patient(eg.review tests), ordering medications,tests, procedures, referring, communicating with other health medicare coordinator, indepentently interpreting results, counseling the patient and care coordination
--- NOTE | 2024-05-29 18:31 | CMDISCH_ITS ---
Date of service: 05/29/24 Time of Service: 18:32 LACE Index Scoring Tool Questions: Length of Stay (in days): 4 - 6 Was the patient admitted via the E.D.?: Yes Comorbidities: Diabetes w/o Complication, Congestive Heart Failure, Chronic Pulmonary Disease and Liver or Renal Disease E.D. Visits: 3 Answers: Total Score: 15 Risk of Readmission: High Risk Care Management Discharge Plan Reason for Hospitalization: CHF Discharge Plan: Jessa will be discharged home with a resumption of home health nursing services. She will follow up with her community providers and plan of care and transport via [facility]. Patient/Family Education Needs: Review of discharge instructions, limitations, diet, daily weights, follow up plan and discuss Ask Me Three Services Needed at Discharge: Home Health Care Services SDOH Health Related Social Needs: Health related social needs housing instability, house d, with risk of homelessness (Z59.811), education (Z55.6)
== END 2024-05-29 17:58 | disposition home or self-care (01) | DRG 291 ==
LOC: ER 22:09 → MS 23:30
PROVIDERS: Emergency Medicine; Nurse Practitioner Acute Care; Admitting Provider Family Medicine; Emergency Provider Physician Assistant; PCP Student in an Organized Health Care Education/Training Program; Responsible Provider Nurse Practitioner Family; Visit Provider Family Medicine
DX: I13.0 Hypertensive heart and chronic kidney disease with heart failure and stage 1 through stage 4 chronic kidney disease, or unspecified chronic kidney disease (principal); J96.01 Acute respiratory failure with hypoxia; J44.1 Chronic obstructive pulmonary disease with (acute) exacerbation; I48.11 Longstanding persistent atrial fibrillation; Z68.41 Body mass index [BMI] 40.0-44.9, adult; I50.9 Heart failure, unspecified; E83.42 Hypomagnesemia; E11.22 Type 2 diabetes mellitus with diabetic chronic kidney disease; Z79.4 Long term (current) use of insulin; N18.32 Chronic kidney disease, stage 3b; Z95.0 Presence of cardiac pacemaker; K21.9 Gastro-esophageal reflux disease without esophagitis; F32.A Depression, unspecified; B37.2 Candidiasis of skin and nail; Z79.899 Other long term (current) drug therapy; E11.42 Type 2 diabetes mellitus with diabetic polyneuropathy; E78.5 Hyperlipidemia, unspecified; D64.9 Anemia, unspecified; E66.9 Obesity, unspecified; F41.9 Anxiety disorder, unspecified; Z95.4 Presence of other heart-valve replacement; I48.91 Unspecified atrial fibrillation; I25.2 Old myocardial infarction; Z95.1 Presence of aortocoronary bypass graft; Z79.01 Long term (current) use of anticoagulants; Z79.85 Long-term (current) use of injectable non-insulin antidiabetic drugs; Z79.84 Long term (current) use of oral hypoglycemic drugs
CPT/HCPCS: 00123; 36415; 51702; 80048; 80053; 82805; 82947; 85027; 87637; 92610; 93005; 93306; 93308; 94640; 94761; 96374; 96375; 99291; 71046; 81003; 81015; 83036; 83605; 83735; 83880; 84443; 84484; 85025; 93010; 94760; 99223; 99232; 99233; 99239; J1815; J1940; J2919; J3475; J7512; J7620

== ENCOUNTER 2024-06-10 16:19 | Observation (INO) | payer MEDICARE, MEDICAID, SELFPAY ==
[2024-06-10] VITALS (33 sets, daily range): BP systolic 91–136; BP diastolic 53–99; PULSE 64–131; RESP 16–24; TEMP 36.3–36.6; O2SAT 91–99
[2024-06-10 16:50] LABS: HCT 38.6 % (36.0-46.0); HGB 12.4 g/dL (11.2-15.7); MCH 29.8 pg (27.0-33.0); MCHC 32.1 % (32.0-36.0); MCV 93 fL (80-95); MPV 11.4 fL (8.0-11.0); Platelet Count 266 10^3/uL (130-400); RBC 4.16 10^6/uL (3.93-5.22); RDW 15.6 % (11.7-14.6); RDW-SD 53.2 fL; WBC 17.61 10^3/uL (4.4-10.8)
[2024-06-10 17:02] LABS: Bands % 1 %
[2024-06-10 17:03] LABS: Absolute Eosinophil Count 0.53 10^3/uL (0.0-0.7); Absolute Lymphocyte Count 1.41 10^3/uL (1.2-3.4); Absolute Monocyte Count 0.18 10^3/uL (0.1-0.8); Atypical Lymphocytes % 1 %; Diff Comment Manual Differential; Poikilocytes 1+
[2024-06-10] MEDS: Dextrose 50%-Water 25 GM/50 ML SYR ×2 (17:03→19:26)
[2024-06-10 17:07] LABS: ALT 144 U/L (14-59); AST 43 U/L (15-37); Albumin 3.4 g/dL (3.4-5.0); Alkaline Phosphatase 163 U/L (46-116); Anion Gap 6.7 mmol/L (3-11); BUN 49 mg/dL (7-18); Bilirubin, Total 0.8 mg/dL (0.2-1.0); CO2 35.3 mmol/L (21.0-32.0); CREATININE 1.4 mg/dL (0.55-1.02); Calcium 8.9 mg/dL (8.5-10.1); Chloride 100 mmol/L (98-107); Estimated GFR 38.51 (mL/min/1.73m2); Magnesium 1.9 mg/dL (1.8-2.4); Sodium 142 mmol/L (136-145); Total Protein 7.4 g/dL (6.4-8.2)
[2024-06-10 17:08] LABS: Glucose 30 mg/dL (74-106)
[2024-06-10 17:29] LABS: TSH (W/Ref FT4) 2.06 uIU/mL (0.36-3.74)
[2024-06-10] MEDS: POTASSIUM CHLORIDE 10 MEQ/100 ML BAG 100 MEQ IV_INF (17:39)
[2024-06-10] MEDS: DEXTROSE 10%-WATER 500 ML 30 ML IV (17:40)
[2024-06-10 17:42] LABS: Bilirubin Negative (Negative); Blood Negative (Negative); Clarity Clear (Clear); Glucose Negative (Negative); Ketones Negative (Negative); Leukocyte Esterase Trace (Negative); Nitrite Positive (Negative); Urobilinogen 0.2 mg/dL (Up to 0.2); pH 5.5 (5-8)
[2024-06-10 17:55] LABS: Bacteria Moderate HPF (Negative); C & S Indicated? No; Casts Negative LPF (Negative); Crystals Negative HPF (Negative); Epithelial Cells Rare HPF (Negative); Mucus Negative (Negative); Other Cells Rare Transitional (Negative); RBC 0-2 HPF (0-2)
[2024-06-10] MEDS: cefTRIAXone 1 GM/50 ML BAG IVPB (18:44)
--- NOTE | 2024-06-10 19:43 | W.PM.HP.N ---
Date of service: 06/10/24 Time of Service: 19:44 Assessment and Plan Assessment and plan (1) Hypoglycemia: Status: Acute Assessment and plan: Persistent hypoglycemia after multiple boluses of D50 by EMS and in the ED. She is now stable on D10 infusion. Will admit to monitor. It appears she is being treated with glipizide as well as basal/bolus insulin. This, in combination with her renal insufficiency make her at very high risk of hypoglycemia. Sulfonureas should be discontinued indefinitely. Coming off the steroid burst recently may have dropped the sugars She also had basically no carbohydrates at lunch and used her insulin. Diabetic education CGM would help lower risk of severe hypoglyemia in the future. (2) Hypokalemia: Status: Acute Assessment and plan: Lab may be accentuated by excess insulin drining K+ into cells temporarily. Will replace orally, follow. Telemetry for now. (3) CHF (congestive heart failure): Status: Acute Assessment and plan: Stable, continune outpatient medications. SGLT2i would be strongly indicated here but I would not start right now. (4) Atrial fibrillation: Assessment and plan: Yodit on metoprolol and diltiazem, apixaban. Continue (5) CKD (chronic kidney disease) stage 3, GFR 30-59 ml/min: Assessment and plan: At baseline GFR, monitor (6) Elevated liver enzymes: Status: Acute Assessment and plan: This is new. Hepatocellular pattern. She denies alcohol or OTC meds or deliberately taking excess medications. Follow, get INR. If persistent consider imaging with RUQ u/s given some tenderness in the area as well. (7) Type 2 diabetes mellitus without complications: Assessment and plan: As above. (8) COPD (chronic obstructive pulmonary disease): Status: Acute Assessment and plan: Stable, continue outpatient inhalers (9) UTI (urinary tract infection): Status: Acute Assessment and plan: Mildly positive u/a, which could have contributed. Mimimal symptoms. She does have an elevated WBC. She was treated with ceftriaxone, will continue with culture pending History of Present Illness History of Present Illness Chief Complaint: mental status changes Narrative: 78 yo F with CKD 3b, Asthma/COPD, HFpEF, CAD s/p CABG, Aortic stenosis s/p bovine AVR, Atrial fibrillation on apixaban, and type 2 DM on basal/bolus insulin AND glipizide who was brought to the emergency room after she was found confused with a blood glucose of 30 in the field. She states she isn't sure what happened. His home health aid was cleaning her home and the next thing she remembers she was waking up and paramedics were there. She states she did use her humolog for lunch. Her lunch was bologna and cheese without bread. She had a normal breakfast of Finnish muffin. She hasn't had low sugars this bad before. She feels fine now. She denies injesting anything else including supplement, OTC medications, or additional of her regular medications. Of note, she was admitted 05/25 to 05/29 for CHF and COPD exacerbations. Her furosemide was increased to 40mg BID and she was discharged with 5 more days of prednisone 40mg. On review of the notes from the PCP, there have been no recent other changes in her medication regimen. Meds are bubble packed by [facility]. Her last A1c was 7.4% while she was here 05/26, which was trending down. She had been prescribed at GLP-1 and a continuous glucose monitor, but she had poor reaction to semaglutide in the past and didn't get it this time. She hasn't been able to use the CGM. Review of Systems All systems reviewed & are unremarkable except as noted in HPI and below Eyes Eyes: Reports loss of vision (chronic) Cardiovascular Cardiovascular: Denies chest pain at rest, Denies rapid heart rate, Reports pedal edema (chronic) and Denies dyspnea Respiratory Respiratory: Denies excessive phlegm production and Denies dyspnea Comments: a little dry cough, hasn't felt sick, breathing better since last admission. Gastrointestinal Gastrointestinal: Denies abdominal pain, Denies nausea and Denies vomiting Neurologic Neurologic: Reports loss of vision (chronic) Psychiatric Psychiatric: Denies depression and Denies mood swings [facility] All Active Problems (Updated 06/11/24 @ 00:07 by Chi Solitario) UTI (urinary tract infection) (Acute) Acute UTI (Acute) Elevated liver enzymes (Acute) Hypokalemia (Acute) Hypoglycemia (Acute) NATHAN (obstructive sleep apnea) (Chronic) Yeast infection of the skin (Acute) Acute hypoxic respiratory failure (Acute) Respiratory failure (Acute) Asthma (Chronic) Elevated BUN (Acute) CHF (congestive heart failure) (Acute) Atrial fibrillation with rapid ventricular response (Acute) COPD (chronic obstructive pulmonary disease) (Acute) Hypoxia (Acute) Chronic obstructive pulmonary disease with (acute) exacerbation (Acute) Medical History Loose left total knee arthroplasty HTN (hypertension) Contusion of toe, left Dermal mycosis Thyroid nodule Diabetic peripheral neuropathy Vitamin D deficiency Hyperparathyroidism HLD (hyperlipidemia) Obesity Anemia Leukocytosis Depressive disorder GERD (gastroesophageal reflux disease) Cellulitis Stress incontinence Afib Diabetes Cardiac pacemaker in situ placed 04/22/2022 in [place]. [employer] Lottie ZURITA [id number] SERIAL # [id number] ENTERED 04/17/24 Anxiety Surgical History S/P AVR replaced with bovine valve Hx of CABG Family History Father Bone cancer Mother Myocardial infarction Brother Myocardial infarction Social History Smoking/Tobacco Use Status: Former Tobacco Use Smoking risk assessment performed?: Yes Alcohol Intake: never Drug use: Never Substance use type: does not use Housing: apartment Do you feel safe at home: Yes Do you feel safe in your relationship?: Yes Meds Allergies and Home Medications Allergies Allergy/AdvReac Type Severity Reaction Status Date / Time gabapentin Allergy Unknown Unverified 06/10/24 16:28 pantoprazole Allergy Unknown Unverified 06/10/24 16:28 semaglutide (From Ozempic) Allergy Unknown Unverified 06/10/24 16:28 Home Medications ?Medication ?Instructions ?Recorded ?Confirmed ?Type apixaban 5 mg tablet (Eliquis) 5 mg PO BID 12/19/23 06/10/24 History atorvastatin 80 mg tablet 80 mg PO DAILY 12/19/23 06/10/24 History duloxetine 30 mg capsule,delayed 30 mg PO QPM 12/19/23 06/10/24 History release famotidine 20 mg tablet 20 mg PO DAILY 12/19/23 06/10/24 History glipizide 5 mg tablet 5 mg PO DAILY 12/19/23 06/10/24 History insulin glargine 100 unit/mL (3 66 unit subcut QPM 12/19/23 06/10/24 History mL) subcutaneous pen (Lantus Solostar U-100 Insulin) trazodone 50 mg tablet 50 mg PO HS 12/19/23 06/10/24 History sucralfate 1 gram tablet 1 g PO QID 04/09/24 06/10/24 History semaglutide 0.25 mg or 0.5 mg (2 0.25 mg subcut .weekly 04/11/24 06/10/24 History mg/3 mL) subcutaneous pen injector (Ozempic) diltiazem HCl 240 mg 240 mg PO DAILY #90 caps 04/30/24 06/10/24 Rx capsule,extended release 24 hr metoprolol tartrate 100 mg tablet 100 mg PO BID #180 tabs 04/30/24 06/10/24 Rx furosemide 40 mg tablet 40 mg PO BID #0 tabs 05/29/24 06/10/24 Rx prednisone 20 mg tablet 40 mg (2 x 20 mg) PO DAILY #10 tabs 05/29/24 06/10/24 Rx insulin aspart U-100 100 unit/mL 10 unit subcut TID 06/10/24 06/10/24 History (3 mL) subcutaneous pen (Novolog FlexPen U-100 Insulin aspart) Exam Narrative Exam Narrative: GEN: Alert and oriented x 4, lying in bed, obese habitus, pleasant and cooperative, gives vague history. No acute distress at rest. HEENT: Head atraumatic. Conjunctiva clear, no icterus. PEERL, EOMI. no rhinorrhea. MMM, OP benign. Neck is supple with no masses or lymphadenopathy, trachea midline LUNGS: CTAB with normal effort CV: Irregularly irregular, with no murmurs, gallops, or rubs. ABD: active bowel sounds, soft, mild RUQ tenderness, no other tenderness, negative murphies, nondistended. No masses. EXT: no cyanosis, clubbing. 1+ tiffany pitting edema ankles/feet. MSK: No joint redness or swelling NEURO: CN 2-12 grossly intact. Normal movement of 4 extremities. Normal speech and coordination. No tremor SKIN: No rashes or open wounds. PSYCH: normal mood and affect. Normal thought process, but memory for details is poor. Results Labs 06/10/24 15:44 06/10/24 15:44 Labs: Laboratory Results - last 24 hr 06/10/24 06/10/24 15:44 17:24 WBC 17.61 H RBC 4.16 Hgb 12.4 Hct 38.6 MCV 93 MCH 29.8 MCHC 32.1 RDW 15.6 H Plt Count 266 MPV 11.4 H Immature Gran % 0.0 Neutrophils % 87.0 Band Neutrophils % 1 Lymphocytes % 7.0 Atypical Lymphs % 1 Monocytes % 1.0 Eosinophils % 3.0 Basophils % 0.0 Nucleated RBC % 0.0 Absolute Neutrophils 15.50 H Absolute Lymphocytes 1.41 Absolute Monocytes 0.18 Absolute Eosinophils 0.53 Absolute Basophils 0.00 RBC Morphology See Below Poikilocytosis 1+ Sodium 142 Potassium 2.6 L* Chloride 100 Carbon Dioxide 35.3 H Anion Gap 6.7 BUN 49 H Creatinine 1.4 H Est GFR (CKD-EPI 2020) 38.51 Glucose 30 L* Calcium 8.9 Magnesium 1.9 Total Bilirubin 0.8 AST 43 H ALT 144 H Alkaline Phosphatase 163 H Total Protein 7.4 Albumin 3.4 TSH 2.06 Urine Color Yellow Urine Clarity Clear Urine pH 5.5 Ur Specific [place] 1.010 Urine Protein Negative Urine Ketones Negative Urine Blood Negative Urine Nitrite Positive H Urine Bilirubin Negative Urine Urobilinogen 0.2 Ur Leukocyte Esterase Trace H Urine RBC 0-2 Urine WBC 5-10 Ur Epithelial Cells Rare Urine Crystals Negative Urine Bacteria Moderate Urine Casts Negative Urine Mucus Negative Urine Other Rare Transitional Ur Culture Indicated? No Urine Glucose Negative Last Vital Signs Pulse 97 H 06/10/24 19:31 Resp 18 06/10/24 19:31 BP 116/79 06/10/24 19:31 Pulse Ox 97 06/10/24 19:31 Time Spent Time spent with Patient: 55-74 minutes Time was spent: preparing to see the patient(eg.review tests), obtaining and/or reviewing separately otained hiistory, ordering medications,tests, procedures, referring, communicating with other health assistant child care teacher, indepentently interpreting results, counseling the patient and care coordination
--- NOTE | 2024-06-10 20:41 | W.PC.ACHO ---
Registration Status: Primary Language: Preferred Language: ED Information & Data Chief Complaint AMS/LOC 06/10/24 18:56 Chief Complaint AMS/LOC 06/10/24 16:19 Triage Note AMS at home ems arrival 06/10/24 16:19 Blood sugar 37 was given approx 100ml d10 last insulin ems reported BS 157 long acting last night Blood sugar 82 on arrival to department Medical / Surgical History (Last Reviewed 05/25/24 @ 22:10 by Jose Vasquez) CKD (chronic kidney disease) stage 3, GFR 30-59 ml/min Atrial fibrillation Type 2 diabetes mellitus without complications HTN (hypertension) Depressive disorder GERD (gastroesophageal reflux disease) Cardiac pacemaker in situ Loose left total knee arthroplasty Contusion of toe, left Dermal mycosis Thyroid nodule Diabetic peripheral neuropathy Vitamin D deficiency Hyperparathyroidism HLD (hyperlipidemia) Obesity Anemia Leukocytosis Cellulitis Stress incontinence Afib Diabetes Anxiety (Last Reviewed 05/25/24 @ 22:10 by Jose Vasquez) S/P AVR Hx of CABG Most Recent Vital Signs Pulse 97 H 06/10/24 19:31 Pulse 111 H 06/10/24 19:31 Respiratory Rate 18 06/10/24 19:31 Respiratory Effort Normal 06/10/24 18:56 Respiratory Depth Normal 06/10/24 18:56 Respiratory Pattern Normal 06/10/24 18:56 Blood Pressure 116/79 06/10/24 19:31 Blood Pressure Mean 90 06/10/24 19:31 Pulse Oximetry 97 06/10/24 19:31 Oxygen Delivery Method Room Air 06/10/24 18:56 Oxygen Flow Rate 0 06/10/24 16:19 Pain Level 0 06/10/24 18:56 Allergies gabapentin Allergy (Unverified 06/10/24 16:28) Unknown pantoprazole Allergy (Unverified 06/10/24 16:28) Unknown semaglutide (From Ozempic) Allergy (Unverified 06/10/24 16:28) Unknown Active Medications Generic Name Dose Route Start Last Admin Trade Name Freq PRN Reason Stop Dose Admin Dextrose/Water 500 mls @ 30 mls/hr 06/10/24 17:30 06/10/24 19:25 Dextrose 10%-Water IV 75 mls/hr INFUSION RONALD Infusion IV IV Catheter Type [Left Wrist] Saline Lock IV Catheter Gauge [Left Wrist] 20 Diet Orders Category Date Time Status Diabetes Consistent CHO [DIET] Nutrition 06/11/24 Breakfast Ordered Diagnostics 06/10/24 06/10/24 06/10/24 Range/Units 20:20 17:24 15:44 WBC 17.61 H (4.4-10.8) 10^3/uL RBC 4.16 (3.93-5.22) 10^6/uL Hgb 12.4 (11.2-15.7) g/dL Hct 38.6 (36.0-46.0) % MCV 93 (80-95) fL MCH 29.8 (27.0-33.0) pg MCHC 32.1 (32.0-36.0) % RDW 15.6 H (11.7-14.6) % Plt Count 266 (130-400) 10^3/uL MPV 11.4 H (8.0-11.0) fL Immature Gran % 0.0 % Neutrophils % 87.0 % Band Neutrophils % 1 % Lymphocytes % 7.0 % Atypical Lymphs % 1 % Monocytes % 1.0 % Eosinophils % 3.0 % Basophils % 0.0 % Nucleated RBC % 0.0 (0.0-0.3) % Absolute Neutrophils 15.50 H (1.2-6.7) 10^3/uL Absolute Lymphocytes 1.41 (1.2-3.4) 10^3/uL Absolute Monocytes 0.18 (0.1-0.8) 10^3/uL Absolute Eosinophils 0.53 (0.0-0.7) 10^3/uL Absolute Basophils 0.00 (0.0-0.2) 10^3/uL RBC Morphology See Below Poikilocytosis 1+ PT Pending INR Pending Sodium 142 (136-145) mmol/L Potassium 2.6 L* (3.5-5.1) mmol/L Chloride 100 (98-107) mmol/L Carbon Dioxide 35.3 H (21.0-32.0) mmol/L Anion Gap 6.7 (3-11) mmol/L BUN 49 H (7-18) mg/dL Creatinine 1.4 H (0.55-1.02) mg/dL Est GFR (CKD-EPI 2020) 38.51 (mL/min/1.73m2) Glucose 30 L* (74-106) mg/dL Calcium 8.9 (8.5-10.1) mg/dL Magnesium 1.9 (1.8-2.4) mg/dL Total Bilirubin 0.8 (0.2-1.0) mg/dL AST 43 H (15-37) U/L ALT 144 H (14-59) U/L Alkaline Phosphatase 163 H (46-116) U/L Total Protein 7.4 (6.4-8.2) g/dL Albumin 3.4 (3.4-5.0) g/dL TSH 2.06 (0.36-3.74) uIU/mL Urine Color Yellow (Yellow) Urine Clarity Clear (Clear) Urine pH 5.5 (5-8) Ur Specific [place] 1.010 (1.005-1.025) Urine Protein Negative (Neg-Trace) mg/dL Urine Ketones Negative (Negative) mg/dL Urine Blood Negative (Negative) Urine Nitrite Positive H (Negative) Urine Bilirubin Negative (Negative) Urine Urobilinogen 0.2 (Up to 0.2) mg/dL Ur Leukocyte Esterase Trace H (Negative) Urine RBC 0-2 (0-2) HPF Urine WBC 5-10 (0-5) HPF Ur Epithelial Cells Rare (Negative) HPF Urine Crystals Negative (Negative) HPF Urine Bacteria Moderate (Negative) HPF Urine Casts Negative (Negative) LPF Urine Mucus Negative (Negative) Urine Other Rare Transitional (Negative) Ur Culture Indicated? No Urine Glucose Negative (Negative) mg/dL 06/10/24 16:24 Urine Culture - Pending Urine - Cath Straight [id number] Documentation Fingerstick Glucose Start: 06/10/24 16:30 Freq: Status: Complete Protocol: Activity Type Activity Date Activity User E-sign Co-sign Detail Recorded Client Recorded Date Recorded By Document 06/10/24 16:25 BKG DAEMON(7) NVT-BG05 06/10/24 16:30 BKG DAEMON(8) Fingerstick Glucose Start: 06/10/24 16:44 Freq: .Stat Status: Active Protocol: Activity Type Activity Date Activity User E-sign Co-sign Detail Recorded Client Recorded Date Recorded By Document 06/10/24 19:07 BKG DAEMON(9) NVT-BG05 06/10/24 19:09 BKG DAEMON(10) Fingerstick Glucose Start: 06/10/24 19:40 Freq: .Q1H Status: Active Protocol: Activity Type Activity Date Activity User E-sign Co-sign Detail Recorded Client Recorded Date Recorded By Document 06/10/24 19:38 BKG DAEMON(10) NVT-BG05 06/10/24 19:49 BKG DAEMON(10) Intake and Output - 24 Hour Total 06/10/24 16:15 thru 06/10/24 19:25 Intake Total 219.833 Balance 219.833 Weight 111.2 kg Intake: IV 219.833 Falls Risk Assessment History of Falls No History 06/10/24 18:56 Contributing Factors Confusion,Unstable, 06/10/24 18:56 Impairments Ambulatory Aids Uses ambulatory device 06/10/24 18:56 Tubes/Lines With any additional score 06/10/24 18:56 Gait Evaluation W/any additional score 06/10/24 18:56 Cognition Cognitive impairment 06/10/24 18:56 Fall Total Score 79 06/10/24 18:56 Level of Risk Maximum Risk 06/10/24 18:56 Problems (Last Reviewed 05/25/24 @ 22:10 by Jose Vasquez) Elevated liver enzymes (Acute) Hypokalemia (Acute) Hypoglycemia (Acute) CHF (congestive heart failure) (Acute) COPD (chronic obstructive pulmonary disease) (Acute) v v v v v v v v v Sending and/or Receiving Nurses: Please use comment section below to note any information pertinent to the patient hand-off not included above. Information / Comments: Pt found at home unresponsive by HH RN, EMS called, pt BS 37 in the field. D10 given, pt up to 157 blood glucose. Since arrival to ED, blood glucose has waxed and wanned. Most recent fingerstick was 211 after second Amp of d50 and a running D10 gtt. Repeat fingerstick due at 2037. Potassium was low 2.6, 10meq IV given, 1G ceftriaxone for UTI given as well. Pt has slight incon issues, along with yeast in skin folds. A&Ox4 when sugar is stabilized but becomes somnolent when sugars dip. Report received from: Santo Liu RN
[2024-06-10 20:43] LABS: INR 1.2 (0.9-1.1)
--- NOTE | 2024-06-10 22:02 | W.ED.GENAD ---
Discharge Plan Disposition Patient Disposition: Admit to [facility] Condition: Stable Discharge Details Chief Complaint: AMS/LOC Clinical Impression: Hypoglycemia, Hypokalemia, Elevated liver enzymes, Acute UTI Admit Date/Time: 06/10/24 19:16 Admit Provider: Chi Solitario Attending Provider: Chi Solitario Primary Care Provider: Zeus Hebert ED Provider: Brigitte Acharya [facility] General Date/Time Provider Initiated Documentation: 06/10/24 16:36. Limitations to Documentation: no limitations. Information obtained by: patient. HPI Narrative: 78-year-old female presents via EMS after altered mental status reported by her home health care worker. The patient states that she took her insulin medication this morning. She states that she took 10 units. She ate a muffin for breakfast and 2 slices of bologna and cheese for lunch. She feels much better now after receiving IV dextrose by EMS. Her initial blood sugar was 37 and came up to 157 after dextrose administration by EMS. She has no other complaints, no nausea vomiting abdominal pain or dysuria. She reports compliance with all of her medications. Related Data Home Medications ?Medication ?Instructions ?Recorded ?Confirmed apixaban 5 mg tablet (Eliquis) 5 mg PO BID 12/19/23 06/10/24 atorvastatin 80 mg tablet 80 mg PO DAILY 12/19/23 06/10/24 duloxetine 30 mg capsule,delayed 30 mg PO QPM 12/19/23 06/10/24 release famotidine 20 mg tablet 20 mg PO DAILY 12/19/23 06/10/24 glipizide 5 mg tablet 5 mg PO DAILY 12/19/23 06/10/24 insulin glargine 100 unit/mL (3 66 unit subcut QPM 12/19/23 06/10/24 mL) subcutaneous pen (Lantus Solostar U-100 Insulin) trazodone 50 mg tablet 50 mg PO HS 12/19/23 06/10/24 sucralfate 1 gram tablet 1 g PO QID 04/09/24 06/10/24 semaglutide 0.25 mg or 0.5 mg (2 0.25 mg subcut .weekly 04/11/24 06/10/24 mg/3 mL) subcutaneous pen injector (Ozempic) diltiazem HCl 240 mg 240 mg PO DAILY #90 caps 04/30/24 06/10/24 capsule,extended release 24 hr metoprolol tartrate 100 mg tablet 100 mg PO BID #180 tabs 04/30/24 06/10/24 furosemide 40 mg tablet 40 mg PO BID #0 tabs 05/29/24 06/10/24 prednisone 20 mg tablet 40 mg (2 x 20 mg) PO DAILY #10 tabs 05/29/24 06/10/24 Previous Rx's ?Medication ?Instructions ?Recorded diltiazem HCl 240 mg 240 mg PO DAILY #90 caps 04/30/24 capsule,extended release 24 hr metoprolol tartrate 100 mg tablet 100 mg PO BID #180 tabs 04/30/24 furosemide 40 mg tablet 40 mg PO BID #0 tabs 05/29/24 prednisone 20 mg tablet 40 mg (2 x 20 mg) PO DAILY #10 tabs 05/29/24 Allergies Allergy/AdvReac Type Severity Reaction Status Date / Time gabapentin Allergy Unknown Unverified 06/10/24 16:28 pantoprazole Allergy Unknown Unverified 06/10/24 16:28 semaglutide (From Ozempic) Allergy Unknown Unverified 06/10/24 16:28 General Stated Complaint: AMS/LOC ZARIA: 2 Exam Narrative Exam Narrative: Review of Systems: All systems reviewed & are unremarkable except as noted in HPI and below Well-developed, no acute distress NCAT PERRL, normal conjunctiva RRR Unlabored respiratory effort Nondistended abdomen no focal neurologic deficits Course Vital Signs Vital signs: Vital Signs Pulse 119 H 06/10/24 16:19 Respiratory Rate 16 06/10/24 16:19 Blood Pressure 106/79 06/10/24 16:19 Pulse Oximetry 99 06/10/24 16:19 Temperature 36.6 C 06/10/24 21:29 Temperature Source Temporal Artery Scan 06/10/24 21:24 Pulse 126 H 06/10/24 21:29 Pulse 111 H 06/10/24 19:31 Respiratory Rate 19 06/10/24 21:29 Respiratory Effort Normal 06/10/24 21:29 Respiratory Depth Normal 06/10/24 21:29 Respiratory Pattern Normal 06/10/24 21:29 Blood Pressure 99/73 L 06/10/24 21:29 Blood Pressure Mean 90 06/10/24 19:31 Pulse Oximetry 97 06/10/24 21:29 Oxygen Delivery Method Room Air 06/10/24 21:29 Oxygen Flow Rate 0 06/10/24 21:29 Pain Level 0 06/10/24 21:29 Comment map of 82. 06/10/24 21:29 Lab/Test Results Lab/Test Results: 06/10/24 16:24 Urine - Cath Straight Urine Culture - Pending Laboratory Tests Range/Units 06/10/24 06/10/24 15:44 17:24 WBC (4.4-10.8) 10^3/uL 17.61 H RBC (3.93-5.22) 10^6/uL 4.16 Hgb (11.2-15.7) g/dL 12.4 Hct (36.0-46.0) % 38.6 MCV (80-95) fL 93 MCH (27.0-33.0) pg 29.8 MCHC (32.0-36.0) % 32.1 RDW (11.7-14.6) % 15.6 H Plt Count (130-400) 10^3/uL 266 MPV (8.0-11.0) fL 11.4 H Immature Gran % % 0.0 Neutrophils % % 87.0 Band Neutrophils % % 1 Lymphocytes % % 7.0 Atypical Lymphs % % 1 Monocytes % % 1.0 Eosinophils % % 3.0 Basophils % % 0.0 Nucleated RBC % (0.0-0.3) % 0.0 Absolute Neutrophils (1.2-6.7) 10^3/uL 15.50 H Absolute Lymphocytes (1.2-3.4) 10^3/uL 1.41 Absolute Monocytes (0.1-0.8) 10^3/uL 0.18 Absolute Eosinophils (0.0-0.7) 10^3/uL 0.53 Absolute Basophils (0.0-0.2) 10^3/uL 0.00 RBC Morphology See Below Poikilocytosis 1+ Sodium (136-145) mmol/L 142 Potassium (3.5-5.1) mmol/L 2.6 L* Chloride (98-107) mmol/L 100 Carbon Dioxide (21.0-32.0) mmol/L 35.3 H Anion Gap (3-11) mmol/L 6.7 BUN (7-18) mg/dL 49 H Creatinine (0.55-1.02) mg/dL 1.4 H Est GFR (CKD-EPI 2020) (mL/min/1.73m2) 38.51 Glucose (74-106) mg/dL 30 L* Calcium (8.5-10.1) mg/dL 8.9 Magnesium (1.8-2.4) mg/dL 1.9 Total Bilirubin (0.2-1.0) mg/dL 0.8 AST (15-37) U/L 43 H ALT (14-59) U/L 144 H Alkaline Phosphatase (46-116) U/L 163 H Total Protein (6.4-8.2) g/dL 7.4 Albumin (3.4-5.0) g/dL 3.4 TSH (0.36-3.74) uIU/mL 2.06 Urine Color (Yellow) Yellow Urine Clarity (Clear) Clear Urine pH (5-8) 5.5 Ur Specific [place] (1.005-1.025) 1.010 Urine Protein (Neg-Trace) mg/dL Negative Urine Ketones (Negative) mg/dL Negative Urine Blood (Negative) Negative Urine Nitrite (Negative) Positive H Urine Bilirubin (Negative) Negative Urine Urobilinogen (Up to 0.2) mg/dL 0.2 Ur Leukocyte Esterase (Negative) Trace H Urine RBC (0-2) HPF 0-2 Urine WBC (0-5) HPF 5-10 Ur Epithelial Cells (Negative) HPF Rare Urine Crystals (Negative) HPF Negative Urine Bacteria (Negative) HPF Moderate Urine Casts (Negative) LPF Negative Urine Mucus (Negative) Negative Urine Other (Negative) Rare Transitional Ur Culture Indicated? No Urine Glucose (Negative) mg/dL Negative Medical Decision Making Emergent evaluation of altered mental status in the setting of hypoglycemia. I reviewed reviewed the patient's medical list and noted that she does take a long-acting insulin at nighttime, as well as glipizide. I do not note a shorter acting insulin that she might have given herself this morning of 10 units on her medication list so not sure if she maybe gave herself glargine again this morning. On arrival recheck blood sugar is noted to be decreasing. Initial differential includes electrolyte derangement, infectious etiology, sepsis. During observation in the emergency department, the patient's glucose continued to drop after dextrose administrations, she required placement on a D10 infusion to maintain her blood sugars. On lab evaluation she does have leukocytosis at 17. Her potassium level is low at 2.6 and IV replacement was given. Renal function is at baseline. There are some mild nonspecific elevation in her LFTs. Her urinalysis is consistent with infectious etiology and a culture has been added on. Given her leukocytosis and persistent hypoglycemia, I will also treat with antibiotics. Patient will be admitted to hospital medicine for further management Quality:[facility] Health Related Social Needs: Health related social needs housing instability, housed, with risk of homelessness (Z59.811), education (Z55.6) [facility] All Active Problems (Updated 06/10/24 @ 22:11 by Brigitte Acharya MD) Acute UTI (Acute) Elevated liver enzymes (Acute) Hypokalemia (Acute) Hypoglycemia (Acute) NATHAN (obstructive sleep apnea) (Chronic) Yeast infection of the skin (Acute) Acute hypoxic respiratory failure (Acute) Respiratory failure (Acute) Asthma (Chronic) Elevated BUN (Acute) CHF (congestive heart failure) (Acute) Atrial fibrillation with rapid ventricular response (Acute) COPD (chronic obstructive pulmonary disease) (Acute) Hypoxia (Acute) Chronic obstructive pulmonary disease with (acute) exacerbation (Acute) Medical History Loose left total knee arthroplasty HTN (hypertension) Contusion of toe, left Dermal mycosis Thyroid nodule Diabetic peripheral neuropathy Vitamin D deficiency Hyperparathyroidism HLD (hyperlipidemia) Obesity Anemia Leukocytosis Depressive disorder GERD (gastroesophageal reflux disease) Cellulitis Stress incontinence Afib Diabetes Cardiac pacemaker in situ placed 04/22/2022 in [place]. Kaylee ZURITA [id number] SERIAL # [id number] ENTERED 04/17/24 Anxiety Surgical History S/P AVR replaced with bovine valve Hx of CABG Family History Father Bone cancer Mother Myocardial infarction Brother Myocardial infarction Social History Smoking/Tobacco Use Status: Former Tobacco Use Smoking risk assessment performed?: Yes Alcohol Intake: never Drug use: Never Substance use type: does not use Housing: apartment Do you feel safe at home: Yes Do you feel safe in your relationship?: Yes
[2024-06-10 22:06] LABS: Potassium 2.6 mmol/L (3.5-5.1)
[2024-06-10] MEDS: Atorvastatin 40 MG TAB 80 MG PO (23:07)
[2024-06-10] MEDS: Metoprolol 50 MG TAB 100 MG PO (23:08)
[2024-06-10] MEDS: Sucralfate 1 GM TAB PO (23:08)
[2024-06-10] MEDS: DULoxetine 30 MG CAP PO (23:09)
[2024-06-10] MEDS: Furosemide 40 MG TAB PO (23:09)
[2024-06-10] MEDS: Apixaban 5 MG TAB PO (23:09)
[2024-06-11] VITALS (8 sets, daily range): BP systolic 93–130; BP diastolic 60–91; PULSE 60–116; RESP 14–19; TEMP 36.4–37.1; O2SAT 93–96
[2024-06-11 06:45] LABS: Abs Immature Grans 0.08 10^3/uL (0.0-0.06); Absolute Basophil Count 0.03 10^3/uL (0.0-0.2); Absolute Eosinophil Count 0.27 10^3/uL (0.0-0.7); Absolute Monocyte Count 0.66 10^3/uL (0.1-0.8); Basophils % 0.2 %; HCT 35.4 % (36.0-46.0); HGB 11.4 g/dL (11.2-15.7); Immature Grans % 0.6 %; Lymphocytes % 7.8 %; MCH 29.7 pg (27.0-33.0); MCHC 32.2 % (32.0-36.0); MCV 92 fL (80-95); Neutrophils % 84.4 %; Platelet Count 226 10^3/uL (130-400); RBC 3.84 10^6/uL (3.93-5.22); RDW 15.6 % (11.7-14.6); RDW-SD 53.1 fL; WBC 13.26 10^3/uL (4.4-10.8)
[2024-06-11 06:46] LABS: Absolute Lymphocyte Count 1.03 10^3/uL (1.2-3.4); Absolute Neutrophil Count 11.19 10^3/uL (1.2-6.7)
[2024-06-11 06:56] LABS: ALT 108 U/L (14-59); AST 28 U/L (15-37); Albumin 2.9 g/dL (3.4-5.0); Alkaline Phosphatase 137 U/L (46-116); Anion Gap 6.6 mmol/L (3-11); BUN 46 mg/dL (7-18); Bilirubin, Total 0.7 mg/dL (0.2-1.0); CO2 31.4 mmol/L (21.0-32.0); CREATININE 1.4 mg/dL (0.55-1.02); Calcium 8.5 mg/dL (8.5-10.1); Chloride 102 mmol/L (98-107); Estimated GFR 38.51 (mL/min/1.73m2); Glucose 140 mg/dL (74-106); Sodium 140 mmol/L (136-145); Total Protein 6.3 g/dL (6.4-8.2)
[2024-06-11 07:07] LABS: Potassium 2.6 mmol/L (3.5-5.1)
[2024-06-11] MEDS: Normal Saline Flush 10 ML SYR IVP ×2 (08:07→19:46)
[2024-06-11] MEDS: Famotidine 20 MG TAB PO (08:07)
[2024-06-11] MEDS: dilTIAZem CD 120 MG CAPCR 240 MG PO (09:11)
--- NOTE | 2024-06-11 09:14 | PDOC.CMIN ---
Date of service: 06/11/24 Time of Service: 09:15 Care Management Initial Assmt Initial Assessment Reason for Hospitalization: hypoglycemia Functional Status/Living Situation Patient Presentation: Jessa presented to the ED yesterday evening with c/o altered mental status by her home health worker. Her initial blood sugar was 37. She received dextrose from EMS and was brought to the ED. She required D10 infusion in the ED as her glucose continued to drop after dextrose administration. Jessa's K+ was only 2.6, and she also has a UTI. Jessa was sitting up in the bedside chair when CM met with her. She was very pleasant and agreeable. Jessa stated that she feels raul to be alive after her event of yesterday. If her aide hadn't been with her, she thinks she would likely be . She stated that she feels well today and has no complaints. Town of Residence: [facility] Resides with: Alone Significant Other/Family: Local (Granddaughter, Nguyen, lives in the same apartment building) Caregiver/Guardian: Jessa has caregivers through [facility] twice a week and receives MOW. She has a CM through [place] on Aging, receives RN, and also receives support from [facility]. Natural Supports: granddaughter, Nguyen lives close, but is not very involved. Jessa speaks with her son, Chi, almost daily. Chi lives in [place]. 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) Instrumental Activities of Daily Living (ADLs): Requires support with Dishes/food prep, Groceries, Laundry and Transportation (uses [facility]) Physical Functioning/Mobility Assistive Device: motorized wheel chair Advance Directives Advance Directives: Do you have an Advance Directive: N 04/10/24 23:24 AD On File at [facility]: N 03/21/24 10:05 Date Asked 06/10/24 06/10/24 16:32 AD Date Reviewed COLST On File at [facility] COLST Date Scanned Code Status Resuscitation Status DNR/DNI Insurance Coverage/Financial Issues Insurance: [employer] Medicare Replacement Medicaid of [place]? Care Team Visit Care Team Role Provider Type Sky Odell MD MD [facility] STAFF PHYSICIAN Zeus Hebert Primary Care Provider NON-[facility] STAFF PHYSICIAN Olivia Braga RDN, CDCES Other Providers CHILD WELFARE MANAGER Odin Bal RDN Other Providers CHILD WELFARE MANAGER Brigitte Acharya MD Emergency Provider [facility] STAFF PHYSICIAN Chi Solitario Admit Provider [facility] STAFF PHYSICIAN Attending Provider Discharge Potential Discharge Needs: PCP F/U Appt Anticipated Barriers to Discharge: None Identified Patient/Family Education Needs: Review discharge instructions, discuss Ask Me Three Transportation: RCT RCT Transportation: Wheel chair van Plan: Anticipate that Jessa will be discharged home with continuation of her HH RN and her C caregivers. She will f/u with her saas architect on 06/14 and with her PCP and continue per her plan of care. Jessa will transport home via [facility] wheelchair van. CM will continue to follow. Social Determinants of Health Screening Social Determinants of Health last assessed: 06/11/24 Will the Patient Participate in the Screening?: Yes Do you worry about having a steady place to live?: no Problems where you live: no known problems In the past 12 months, have you had to go without electric, gas, oil or water in your home?: no Have you or anyone in your house had to go without enough food to eat?: no Has lack of transportation kept you from medical appointments or from doing things needed for daily living?: no Has anyone in your life made you feel unsafe or unsupported?: no How hard is it for you to pay for the very basics like food, housing, medical care, and heating? Would you say it is:: Not hard at all Do you want help finding or keeping work or a job?: I do not need or want help If for any reason you need help with day-to-day activities such as bathing, preparing meals, shopping, managing finances, etc., do you get the help you need?: I don?t need any help How often do you feel lonely or isolated from those around you?: Never Do you speak a language other than Chinese at home?: No Does the patient want assistance with any of the above?: No PFSH All Active Problems (Updated 06/11/24 @ 00:07 by Chi Solitario) UTI (urinary tract infection) (Acute) Acute UTI (Acute) Elevated liver enzymes (Acute) Hypokalemia (Acute) Hypoglycemia (Acute) NATHAN (obstructive sleep apnea) (Chronic) Yeast infection of the skin (Acute) Acute hypoxic respiratory failure (Acute) Respiratory failure (Acute) Asthma (Chronic) Elevated BUN (Acute) CHF (congestive heart failure) (Acute) Atrial fibrillation with rapid ventricular response (Acute) COPD (chronic obstructive pulmonary disease) (Acute) Hypoxia (Acute) Chronic obstructive pulmonary disease with (acute) exacerbation (Acute) Medical History Loose left total knee arthroplasty HTN (hypertension) Contusion of toe, left Dermal mycosis Thyroid nodule Diabetic peripheral neuropathy Vitamin D deficiency Hyperparathyroidism HLD (hyperlipidemia) Obesity Anemia Leukocytosis Depressive disorder GERD (gastroesophageal reflux disease) Cellulitis Stress incontinence Afib Diabetes Cardiac pacemaker in situ placed 04/22/2022 in [place]. [employer] Lottie ZURITA [id number] SERIAL # [id number] ENTERED 04/17/24 Anxiety Surgical History S/P AVR replaced with bovine valve Hx of CABG Family History Father Bone cancer Mother Myocardial infarction Brother Myocardial infarction Social History Smoking/Tobacco Use Status: Former Tobacco Use Smoking risk assessment performed?: Yes Alcohol Intake: never Drug use: Never Substance use type: does not use Housing: apartment Do you feel safe at home: Yes Do you feel safe in your relationship?: Yes Readmission Within the Past 30 Days Yes or No: Yes Date of First Admission Date of 1st Admission: 05/25/24 Date of this Admission Date of Admission: 06/10/24 This admission was: Through ED Office Visit Since 1st Admission Have you seen your PCP in the office since discharge?: No Date of PCP Appointment: 06/12/24 Had an appointment Been Scheduled?: Yes Date of Scheduled Appointment: 06/12/24 Speicalist Appointments Have you seen any other specialist since your 1st Admission?: No I. Interview patient and/or Family Difficulty reaching your doctor or getting an office appt?: No Have you had trouble purchasing/ or taking medication?: No Did you feel ready for discharge when you left the last time: Yes Were services received that you thought were set up on disch: Yes Did you call your physician beore you came to the ED?: No If the patient had a VNA ordered Did the patient have a VNA order?: Yes Did you call the VNA before you came?: Yes (VNA was present) ED visits How many ED visits in the past 12 months: 4 Assessment for Readmission Summary of readmission circumstances, based upon interviews: Jessa was treated with steroids after her last admission. She completed her course, and perhaps that is why her BS levels dropped so low Anticipated HH Services Anticipated HH Services at Discharge [facility] Resumption, RN Following Provider: Anup.
[2024-06-11] MEDS: Sucralfate 1 GM TAB PO ×3 (11:06→22:08)
--- NOTE | 2024-06-11 11:32 | W.INDIABCONS ---
Date of service: 06/11/24 Time of Service: 09:30 Diabetes Inpatient Consult Reason for Visit: received consult request re: diabetes ed/mgt DESCRIPTION/ASSESSMENT: Pt is 78yo female who was brought in by EMS after AMS at home with glucose 37. Pt was treated for hypoglycemia and is currently ordered for glucose fingersticks q 4 hours while receiving 15mL/hr of D10. No insulin currently ordered. Fasting glucose at 140 this morning with fingersticks rangning from 139-174 this morning x 3 checks. At home pt takes glipizide 5mg daily as well as 10 units novolog TID and 66 units lantus. Pt lives in apartment. States she runs out of strips easily (medicare only provides about 1 strip per day). She denies ever having low glucose below 60 and found this quite an experience. Pt educated on signs of hypoglycemia and corrective measures with 15/15 rule and ensuring she has emergency food and glucagon emergency kit. Pt encouraged to eat regular meals, stay hydrated with 6 cups or more water per day. Declined further detailed education but has my contact info should she desire outpatient support. Time Spent in Nutritional Counseling and Treatment: 15 min
--- NOTE | 2024-06-11 13:21 | PGE_ITS ---
Date of Service Date of service: 06/11/24 Time of Service: 13:22 Assessment and Plan Assessment and plan (1) Hypoglycemia: Status: Acute Assessment and plan: -Persistent hypoglycemia after multiple boluses of D50 by EMS and in the ED. -Initially admitted on 30 mL/h of D10, however throughout the morning of 06/11/2024 blood sugars improved as did patient's p.o. intake therefore D10 has been discontinued as of early p.m. 06/11/2024 -Patient was on glipizide in addition to basal and bolus insulin, will discontinue glipizide, and restart basal/bolus insulin once blood sugars have normalized -Diabetic education (2) Hypokalemia: Status: Acute Assessment and plan: -Was down to 2.6 on admission and was repleted orally -Again 2.6 on the a.m. of 06/11/2024, patient has since been given additional 40 mEq IV -Follow-up a.m. BMP (3) CHF (congestive heart failure): Status: Acute Assessment and plan: -Stable, continune outpatient medications. -SGLT2i would be strongly indicated here but I would not start right now. (4) Atrial fibrillation: Assessment and plan: -Continue home metoprolol and diltiazem, apixaban (5) CKD (chronic kidney disease) stage 3, GFR 30-59 ml/min: Assessment and plan: At baseline GFR, monitor (6) Elevated liver enzymes: Status: Acute Assessment and plan: -New, appears to be hepatocellular pattern -Patient denies significant alcohol intake or [id number] medications or- deliberate access medication intake -INR slightly elevated at 1.2 -Repeat CMP on the morning of 06/11/2024 showed improvement of AST, ALT and alk phos -Follow-up a.m. CMP this is new. (7) Type 2 diabetes mellitus without complications: Assessment and plan: As above. (8) COPD (chronic obstructive pulmonary disease): Status: Acute Assessment and plan: Stable, continue outpatient inhalers (9) UTI (urinary tract infection): Status: Acute Assessment and plan: -Mildly positive u/a, which could have contributed, Mimimal symptoms. -She does have an elevated WBC -Started on ceftriaxone in the emergency department, will continue Subjective Subjective Interval history since last seen: Patient states that she is feeling much better today. She understands we will continue to decrease her glucose containing fluids while awaiting her p.o. hypoglycemic agents to wear off and her blood sugars to stabilize. She has no complaints or concerns at this time. Exam Narrative Exam Narrative: Well-appearing morbidly obese female sitting up in the chair no acute distress, ANO x 4, heart regular rhythm, lungs clear to auscultation bilaterally, abdomen obese, soft, nontender, nondistended Objective Last Vital Signs Temp 97.7 F 06/11/24 11:14 Pulse 95 H 06/11/24 11:14 Resp 18 06/11/24 11:14 BP 111/79 06/11/24 11:14 Pulse Ox 93 06/11/24 11:14 Laboratory Results - last 24 hr 06/10/24 06/10/24 06/10/24 15:44 17:24 20:20 WBC 17.61 H RBC 4.16 Hgb 12.4 Hct 38.6 MCV 93 MCH 29.8 MCHC 32.1 RDW 15.6 H Plt Count 266 MPV 11.4 H Immature Gran % 0.0 Neutrophils % 87.0 Band Neutrophils % 1 Lymphocytes % 7.0 Atypical Lymphs % 1 Monocytes % 1.0 Eosinophils % 3.0 Basophils % 0.0 Nucleated RBC % 0.0 Absolute Neutrophils 15.50 H Absolute Lymphocytes 1.41 Absolute Monocytes 0.18 Absolute Eosinophils 0.53 Absolute Basophils 0.00 RBC Morphology See Below Poikilocytosis 1+ PT 12.0 H INR 1.2 H Sodium 142 Potassium 2.6 L* Chloride 100 Carbon Dioxide 35.3 H Anion Gap 6.7 BUN 49 H Creatinine 1.4 H Est GFR (CKD-EPI 2020) 38.51 Glucose 30 L* Calcium 8.9 Magnesium 1.9 Total Bilirubin 0.8 AST 43 H ALT 144 H Alkaline Phosphatase 163 H Total Protein 7.4 Albumin 3.4 TSH 2.06 Urine Color Yellow Urine Clarity Clear Urine pH 5.5 Ur Specific [place] 1.010 Urine Protein Negative Urine Ketones Negative Urine Blood Negative Urine Nitrite Positive H Urine Bilirubin Negative Urine Urobilinogen 0.2 Ur Leukocyte Esterase Trace H Urine RBC 0-2 Urine WBC 5-10 Ur Epithelial Cells Rare Urine Crystals Negative Urine Bacteria Moderate Urine Casts Negative Urine Mucus Negative Urine Other Rare Transitional Ur Culture Indicated? No Urine Glucose Negative 06/11/24 06:18 WBC 13.26 H RBC 3.84 L Hgb 11.4 Hct 35.4 L MCV 92 MCH 29.7 MCHC 32.2 RDW 15.6 H Plt Count 226 MPV 12.0 H Immature Gran % 0.6 Neutrophils % 84.4 Band Neutrophils % Lymphocytes % 7.8 Atypical Lymphs % Monocytes % 5.0 Eosinophils % 2.0 Basophils % 0.2 Nucleated RBC % 0.0 Absolute Neutrophils 11.19 H Absolute Lymphocytes 1.03 L Absolute Monocytes 0.66 Absolute Eosinophils 0.27 Absolute Basophils 0.03 RBC Morphology Poikilocytosis PT INR Sodium 140 Potassium 2.6 L* Chloride 102 Carbon Dioxide 31.4 Anion Gap 6.6 BUN 46 H Creatinine 1.4 H Est GFR (CKD-EPI 2020) 38.51 Glucose 140 H Calcium 8.5 Magnesium Total Bilirubin 0.7 AST 28 ALT 108 H Alkaline Phosphatase 137 H Total Protein 6.3 L Albumin 2.9 L TSH Urine Color Urine Clarity Urine pH Ur Specific [place] Urine Protein Urine Ketones Urine Blood Urine Nitrite Urine Bilirubin Urine Urobilinogen Ur Leukocyte Esterase Urine RBC Urine WBC Ur Epithelial Cells Urine Crystals Urine Bacteria Urine Casts Urine Mucus Urine Other Ur Culture Indicated? Urine Glucose Time Spent with Patient Time Spent with Patient: >50 minutes Time was spent: preparing to see the patient(eg.review tests), obtaining and/or reviewing separately otained hiistory, ordering medications,tests, procedures, referring, communicating with other health child care team lead, indepentently interpreting results, counseling the patient and care coordination
[2024-06-11] MEDS: POTASSIUM CHLORIDE 20 MEQ/100 ML BAG 50 MEQ IV_INF ×2 (13:29→15:54)
[2024-06-11] MEDS: Metoprolol 50 MG TAB 100 MG PO ×2 (13:38→19:42)
[2024-06-11] MEDS: Furosemide 40 MG TAB PO (15:54)
[2024-06-11] MEDS: Insulin Aspart 300 UNITS/3 ML PEN 10 UNITS SC (17:32)
[2024-06-11] MEDS: cefTRIAXone 1 GM/50 ML BAG IVPB (17:51)
[2024-06-11] MEDS: Insulin Glargine 300 UNITS/3 ML PEN 66 UNITS SC (19:42)
[2024-06-11] MEDS: Apixaban 5 MG TAB PO (19:42)
--- NOTE | 2024-06-12 03:11 | NUR.NOTE ---
Patient rand call rangel to have glucose checked , feeling sweaty glucose was 42 . Treated with orange juice.Nursing Note:
[2024-06-12 04:43] VITALS: BP 102/68; PULSE 108; RESP 18; TEMP 36.5; O2SAT 96
[2024-06-12 06:37] LABS: HCT 35.4 % (36.0-46.0); HGB 11.4 g/dL (11.2-15.7); MCH 29.9 pg (27.0-33.0); MCHC 32.2 % (32.0-36.0); MCV 93 fL (80-95); MPV 12.2 fL (8.0-11.0); Platelet Count 214 10^3/uL (130-400); RBC 3.81 10^6/uL (3.93-5.22); RDW 15.6 % (11.7-14.6); RDW-SD 52.5 fL; WBC 11.36 10^3/uL (4.4-10.8)
[2024-06-12 06:57] LABS: ALT 91 U/L (14-59); AST 28 U/L (15-37); Albumin 2.9 g/dL (3.4-5.0); Alkaline Phosphatase 139 U/L (46-116); BUN 46 mg/dL (7-18); Bilirubin, Total 0.7 mg/dL (0.2-1.0); CREATININE 1.5 mg/dL (0.55-1.02); Calcium 8.7 mg/dL (8.5-10.1); Chloride 101 mmol/L (98-107); Estimated GFR 35.45 (mL/min/1.73m2); Glucose 75 mg/dL (74-106); Potassium 3.2 mmol/L (3.5-5.1); Sodium 140 mmol/L (136-145); Total Protein 6.4 g/dL (6.4-8.2)
[2024-06-12 08:10] VITALS: BP 97/67; PULSE 137; RESP 17; TEMP 36.9; O2SAT 96
[2024-06-12] MEDS: Normal Saline Flush 10 ML SYR IVP (09:01)
[2024-06-12] MEDS: Sucralfate 1 GM TAB PO (09:01)
[2024-06-12] MEDS: Apixaban 5 MG TAB PO (09:01)
[2024-06-12] MEDS: Metoprolol 50 MG TAB 100 MG PO (09:09)
[2024-06-12] MEDS: dilTIAZem CD 120 MG CAPCR 240 MG PO (09:10)
[2024-06-12] MEDS: Furosemide 40 MG TAB PO (09:11)
--- NOTE | 2024-06-12 09:30 | PDOC.HHF2F ---
Home Health Referral Home Health Orders Clinical synopsis of why skilled professionals are needed: IDDM, COPD, UTI Registered Nurse: Check all that apply Assess for exacerbation of medical condition, instruct patient/caregivers on signs and symptoms to report for early detection: Ordered Physical Therapist: Check all that apply Increase strength & endurance for safe mobility at home: Ordered To design/establish home maintenance program: Ordered Fall reduction therapy program for patient with history of frequent falls: Ordered Home safety evaluation and teaching/gait training including stair management (if applicable): Ordered Occupational Therapist: Evaluate and treat for patient unable to perform ADL/IADL/self-care: Ordered Encounter Date and Reason: I certify that a FTF encounter for this patient was performed on June 12, 2024 and that such encounter was related to the primary reason the patient requires home health services. The encounter was conducted in the following manner: By me as the certifying physician, DESIGN ENGINEERING INTERN, PA or By an inpatient physician, DESIGN ENGINEERING INTERN or PA during an inpatient stay who communicated findings to me, Certification And Authentication I certify that I composed the above information based on my clinical judgment relating to this patient's medical condition and, if applicable, clinical findings communicated to me by the NPP or inpatient physician who performed the FTF encounter. Name of Provider that will be monitoring home health services: Zeus Hebert
--- NOTE | 2024-06-12 09:31 | W.PM.DS.N ---
Date of service: 06/12/24 Time of Service: 09:31 DS: Diagnosis Discharge Diagnosis (1) Hypoglycemia: Status: Acute (2) Hypokalemia: Status: Acute (3) CHF (congestive heart failure): Status: Acute (4) Atrial fibrillation: (5) CKD (chronic kidney disease) stage 3, GFR 30-59 ml/min: (6) Elevated liver enzymes: Status: Acute (7) Type 2 diabetes mellitus without complications: (8) COPD (chronic obstructive pulmonary disease): Status: Acute (9) UTI (urinary tract infection): Status: Acute Discharge Plan Disposition Patient Disposition: Home W/Home Health Services Condition: Good Discharge Details Reason For Visit: Hypoglycemia Admit Date/Time: 06/10/24 19:16 Admit Provider: Chi Solitario Attending Provider: Chi Solitario Primary Care Provider: Zeus Hebert Hospital Course Hospital Course: Patient initially presented with signs and symptoms of persistent hypoglycemia. This is likely secondary to patient being on high doses of long-acting insulin, 3 times daily insulin, as well as glipizide. Glipizide was discontinued and patient was on D10 infusion on admission which has since been discontinued as her blood sugars improved during the day. However, she became asymptomatically hypoglycemic on the morning of 06/12/2024 which corrected itself. After long discussion with the patient, she would prefer to be discharged home and stated that she would decrease her nighttime Lantus (initially 66, recommended decrease to 58 units), and would adjust with increasing her daytime insulin as needed. She also understands that she will keep in close contact with her PCP as she makes fine adjustments to her insulin regimen. However, given that the patient states that she feels significantly better, prefer to continue her insulin management at home it was determined that she was stable for discharge home with home health services. Home Meds and New Rx's Prescriptions: New cefpodoxime 200 mg tablet 200 mg PO BID 5 Days Qty: 10 0RF Rx Instructions: must administer with a meal/food Continued sucralfate 1 gram tablet 1 g PO QID metoprolol tartrate 100 mg tablet 100 mg PO BID Qty: 180 3RF diltiazem HCl 240 mg capsule,extended release 24hr 240 mg PO DAILY Qty: 90 3RF atorvastatin 80 mg tablet 80 mg PO DAILY duloxetine 30 mg capsule,delayed release(DR/EC) 30 mg PO QPM Eliquis 5 mg tablet 5 mg PO BID famotidine 20 mg tablet 20 mg PO DAILY trazodone 50 mg tablet 50 mg PO HS furosemide 40 mg tablet 40 mg PO BID Qty: 0 0RF insulin aspart U-100 [Novolog FlexPen U-100 Insulin] 100 unit/mL (3 mL) insulin pen 10 unit SUBCUT TID Ozempic 0.25 mg or 0.5 mg (2 mg/3 mL) pen injector 0.25 mg SUBCUT .weekly Patient Comments: 04/11/24 - has not started yet per patient Changed insulin glargine [Lantus Solostar U-100 Insulin] 100 unit/mL (3 mL) insulin pen 58 unit subcut QPM Qty: 0 0RF Discontinued glipizide 5 mg tablet 5 mg PO DAILY prednisone 20 mg Tablet 40 mg PO DAILY Qty: 10 0RF Discharge Instructions Stand Alone Forms: Nursing Discharge Form Referrals: Zeus Hebert [Primary Care Provider] - 07/09/24 1:40 pm Activity:: Activity as Tolerated Equipment/Supplies:: No Equipment Needed Diet:: As Tolerated Discharge Orders Discharge Orders: Discharge Order (Routine); Ordered 06/12/24 Ordered By: Sky Odell Discharge Data Discharge Date/Time-TO BE ENTERED AT DEPARTURE: 06/12/24 11:28 DS: Summary Time Spent with Patient providing and/or coordinating discharge services: Greater than 30 minutes Status at Discharge Functional status at discharge: independent ambulation Overall status at discharge: patient is back to baseline Mental Status: mental status grossly normal Speech and Movement: speech and movement normal Mood: congruent mood Affect: normal affect Quality:SDOH Health Related Social Needs: Health related social needs housing instability, housed, with risk of homelessness (Z59.811), education (Z55.6) Exam Narrative Exam Narrative: Well-appearing morbidly obese female sitting up in the chair no acute distress, ANO x 4, heart regular rhythm, lungs clear to auscultation bilaterally, abdomen obese, soft, nontender, nondistended Psych Mental Status: mental status grossly normal Speech and Movement: speech and movement normal Mood: congruent mood Affect: normal affect DS: Data Vitals/I&O Vitals and I&O: Vital Signs Temperature 98.4 F 06/12/24 08:10 Temperature Source Temporal Artery Scan 06/12/24 08:10 Pulse 137 H 06/12/24 08:10 Pulse Rhythm Irregular 06/10/24 21:29 Pulse 111 H 06/10/24 19:31 Respiratory Rate 17 06/12/24 08:10 Respiratory Effort Normal, Non-Labored 06/10/24 21:29 Respiratory Depth Deep 06/10/24 21:29 Respiratory Pattern Normal 06/10/24 21:29 Blood Pressure 97/67 L 06/12/24 08:10 Blood Pressure Mean 90 06/10/24 19:31 Pulse Oximetry 96 06/12/24 08:10 Oxygen Delivery Method Room Air 06/12/24 08:10 Oxygen Flow Rate 0 06/12/24 08:10 Pain Level 0 06/12/24 04:43 Comment map of 82. 06/10/24 21:29 Intake & Output 06/11/24 06/12/24 06/12/24 17:59 05:59 17:59 Intake Total 642.75 / 642.75 65 / 707.75 Output Total 750 / 750 900 / 1650 100 / 100 Balance -107.25 / -107.25 -835 / -942.25 -100 / -100 Weight 231 lb 4.238 oz 233 lb 7.512 oz Intake: IV 442.75 / 442.75 65 / 507.75 Oral 200 / 200 Output: Urine 750 / 750 900 / 1650 100 / 100 Other: Urine Color Yellow Yellow Yellow Urine Appearance Clear Clear Urine Odor Normal Normal Stool Size Small Small Stool Characteristics Formed Soft Brown Data Completed and Pending Labs on day of discharge: Labs from last 24 hours 06/12/24 06:17 WBC 11.36 H RBC 3.81 L Hgb 11.4 Hct 35.4 L MCV 93 MCH 29.9 MCHC 32.2 RDW 15.6 H Plt Count 214 MPV 12.2 H Sodium 140 Potassium 3.2 L Chloride 101 Carbon Dioxide 34.0 H Anion Gap 5.0 BUN 46 H Creatinine 1.5 H Est GFR (CKD-EPI 2020) 35.45 Glucose 75 Calcium 8.7 Total Bilirubin 0.7 AST 28 ALT 91 H Alkaline Phosphatase 139 H Total Protein 6.4 Albumin 2.9 L PFSH All Active Problems (Updated 06/12/24 @ 09:30 by Sky Odell MD) UTI (urinary tract infection) (Acute) Acute UTI (Acute) Elevated liver enzymes (Acute) Hypokalemia (Acute) Hypoglycemia (Acute) NATHAN (obstructive sleep apnea) (Chronic) Yeast infection of the skin (Acute) Acute hypoxic respiratory failure (Acute) Respiratory failure (Acute) Asthma (Chronic) Elevated BUN (Acute) CHF (congestive heart failure) (Acute) Atrial fibrillation with rapid ventricular response (Acute) COPD (chronic obstructive pulmonary disease) (Acute) Hypoxia (Acute) Chronic obstructive pulmonary disease with (acute) exacerbation (Acute) Medical History Loose left total knee arthroplasty HTN (hypertension) Contusion of toe, left Dermal mycosis Thyroid nodule Diabetic peripheral neuropathy Vitamin D deficiency Hyperparathyroidism HLD (hyperlipidemia) Obesity Anemia Leukocytosis Depressive disorder GERD (gastroesophageal reflux disease) Cellulitis Stress incontinence Afib Diabetes Cardiac pacemaker in situ placed 04/22/2022 in [place]. 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 Family History Father Bone cancer Mother Myocardial infarction Brother Myocardial infarction Social History Smoking/Tobacco Use Status: Former Tobacco Use Smoking risk assessment performed?: Yes Alcohol Intake: never Drug use: Never Substance use type: does not use Housing: apartment Do you feel safe at home: Yes Do you feel safe in your relationship?: Yes Time Spent with Patient Time Spent with Patient: <45 minutes Time was spent: preparing to see the patient(eg.review tests), obtaining and/or reviewing separately otained hiistory, ordering medications,tests, procedures, referring, communicating with other health pharmacist critical care, indepentently interpreting results, counseling the patient and care coordination
[2024-06-12 11:19] VITALS: BP 106/72; PULSE 126; RESP 18; TEMP 36.8; O2SAT 94
--- NOTE | 2024-06-12 16:08 | CMDISCH_ITS ---
Date of service: 06/12/24 Time of Service: 16:08 LACE Index Scoring Tool Questions: Length of Stay (in days): 2 Was the patient admitted via the E.D.?: Yes Comorbidities: Congestive Heart Failure and Chronic Pulmonary Disease E.D. Visits: 4 Answers: Total Score: 14 Risk of Readmission: High Risk Care Management Discharge Plan Reason for Hospitalization: hypoglycemia Discharge Plan: Jessa was discharged home today with continuation of her HH RN and her caregivers. She will f/u with her PCP on 07/09 and continue per her plan of care. Jessa was transported home via [facility] wheel chair van. Patient/Family Education Needs: Review of discharge instructions, activity, limitations, and discuss Ask me 3. SDOH Health Related Social Needs: Health related social needs housing instability, house d, with risk of homelessness (Z59.811), education (Z55.6)
== END 2024-06-12 11:28 | disposition home health service (06) ==
LOC: ER 19:39 → MS 21:08
PROVIDERS: Admitting Provider Family Medicine; Emergency Provider Emergency Medicine; PCP Student in an Organized Health Care Education/Training Program; Responsible Provider Family Medicine; Visit Provider Family Medicine
DX: E87.6 Hypokalemia; N39.0 Urinary tract infection, site not specified; I50.30 Unspecified diastolic (congestive) heart failure; I48.11 Longstanding persistent atrial fibrillation; E11.649 Type 2 diabetes mellitus with hypoglycemia without coma; N18.32 Chronic kidney disease, stage 3b; I25.10 Atherosclerotic heart disease of native coronary artery without angina pectoris; Z95.1 Presence of aortocoronary bypass graft; Z95.3 Presence of xenogenic heart valve; Z79.01 Long term (current) use of anticoagulants; Z79.84 Long term (current) use of oral hypoglycemic drugs; R74.8 Abnormal levels of other serum enzymes; G47.33 Obstructive sleep apnea (adult) (pediatric); E11.42 Type 2 diabetes mellitus with diabetic polyneuropathy; J44.9 Chronic obstructive pulmonary disease, unspecified; Z79.4 Long term (current) use of insulin; I13.0 Hypertensive heart and chronic kidney disease with heart failure and stage 1 through stage 4 chronic kidney disease, or unspecified chronic kidney disease; Z95.0 Presence of cardiac pacemaker; E55.9 Vitamin D deficiency, unspecified; E78.5 Hyperlipidemia, unspecified; D64.9 Anemia, unspecified; K21.9 Gastro-esophageal reflux disease without esophagitis; N39.3 Stress incontinence (female) (male); E66.01 Morbid (severe) obesity due to excess calories; Z79.85 Long-term (current) use of injectable non-insulin antidiabetic drugs
CPT/HCPCS: 00123; 36415; 36416; 80053; 82962; 85027; 87077; 96365; 96366; 99285; 81003; 81015; 83735; 84443; 85025; 85610; 87086; 87186; 99223; 99233; 99239; G0378; J0696; J1815; J3480

== ENCOUNTER → 2024-06-14 13:43 | Outpatient (BNVA) | payer MEDICARE, MEDICAID, SELFPAY | PROVIDERS: PCP Student in an Organized Health Care Education/Training Program; Referring Provider Student in an Organized Health Care Education/Training Program; Visit Provider Internal Medicine Cardiovascular Disease | DX: I50.9 Heart failure, unspecified (principal); I48.91 Unspecified atrial fibrillation; Z95.0 Presence of cardiac pacemaker; E11.649 Type 2 diabetes mellitus with hypoglycemia without coma | CPT/HCPCS: 99214 ==

== ENCOUNTER 2024-07-08 11:08 | Inpatient (IN) | payer MEDICARE, MEDICAID, SELFPAY ==
[2024-07-08] VITALS (37 sets, daily range): BP systolic 99–141; BP diastolic 46–116; PULSE 61–125; RESP 15–31; TEMP 36.5–37.2; O2SAT 85–98
--- NOTE | 2024-07-08 11:00 | RT.EKG_ITS ---
APPROVED REPORT Exam: Resting ECG Reason for Exam: SOB Patient Location: E HR:80 bpm ECG Measurements Heart Rate 80 AXIS MD 178 P [id number] QRSd 82 QRS -9 QT 445 T 59 QTc 513 Conclusion Atrial-paced complexes...other complexes also detected Multiform ventricular premature complexes...short R-R, variable morphology Anteroseptal infarct, age indeterminate...Q >35mS, T neg, V1-V2 Prolonged QT interval...QTc >500mS No STEMI
--- NOTE | 2024-07-08 11:07 | ED.GENADUL_ITS ---
Discharge Plan Disposition Patient Disposition: Admit to [facility] Discharge Details Clinical Impression: Acute respiratory failure with hypoxia and hypercapnia, Decubitus ulcer of sacral region, Acute HFrEF (heart failure with reduced ejection fraction) Admit Date/Time: 07/08/24 13:05 Admit Provider: Chi Solitario Attending Provider: Chi Solitario Primary Care Provider: Zeus Hebert ED Provider: Chi Nelson Discharge Data Discharge Date/Time-TO BE ENTERED AT DEPARTURE: 07/08/24 14:32 HPI General Date/Time Provider Initiated Documentation: 07/08/24 11:28 . HPI Narrative: MDM This is a hypoxic normothermic and nontachycardic 78-year-old female with bilateral B-lines lower extremity edema most consistent with heart failure with reduced ejection fraction complicated by hypercarbia and hypoxia for which patient will require hospitalization and IV diuretics using furosemide following IV and oral repletion of her magnesium. Dimer less than 1000 and given B-lines based on YEARS criteria I did not order a CT angiogram of her chest no trauma to suggest increased risk for pneumothorax.. No cough to suggest pneumonia. No significant wheezes to suggest COPD refill defer steroid treatment. Patient does have a sacral decubitus ulcer. There is not appear to be signs of surrounding superinfection at this point in time. Patient had 2 troponins within normal limits and as result I canceled her third troponin. No black nor bloody stools to suggest acute GI bleed. Patient does have left knee tenderness for which I ordered an x-ray. Patient took all of her home medications. She has a nonischemic ECG. She is not in A-fib with RVR so she does not require rate control. She is able to straight leg raise so I am not concern for quadriceps tendon injury. 12 PM Venous gas showing no acidemia but mild hypercarbia. 12:50 PM I was in touch with Dr. Solitario who graciously agreed to accept patient for hospitalization. Left knee plain films negative for any acute osseous abnormalities. HPI This is a 78-year-old female with history of CHF and COPD and remote prior bioprosthetic aortic valve right emergency department via EMS in the setting of shortness of breath. Patient developed shortness of breath of the past several days. Her room air saturation was 81%. She is not on home oxygen. She denies any fevers and chills but has had a cough for the past several days. She has noticed increased swelling in her lower extremities. She has never had a PE nor DVT. She did hit her left knee with her wheelchair recently. She uses a power scooter. She has noted increased swelling. Denies nausea vomiting dysuria frequency. Exam General: Well-appearing in no acute distress speaking in complete sentences. Head: Normocephalic, atraumatic. Eye: Extraocular eye movements intact. No conjunctival injection. No scleral icterus. Ear, nose, mouth, throat: Grossly normal inspection. Normal voice, handling secretions normally. Neck: Trachea midline. Cardiovascular: Well-perfused distal extremities. Irregularly irregular rhythm. Respiratory: Nonlabored respiration. Decreased breath sounds bilateral bases. Gastrointestinal: Nondistended abdomen. Musculoskeletal: 2+ bilateral lower extremity pitting edema. Moving all 4 extremities spontaneously. Left knee with tenderness and patellar hematoma. Left knee with well-healed surgical incision. Patient is able to straight leg raise. Warm well-perfused left foot. Skin: Normal for age and race, grossly normal temperature and turgor. No acute rash. Neurologic: Alert and appropriate, no apparent acute deficits. Related Data Home Medications ?Medication ?Instructions ?Recorded ?Confirmed apixaban 5 mg tablet (Eliquis) 5 mg PO BID 12/19/23 07/08/24 atorvastatin 80 mg tablet 80 mg PO DAILY 12/19/23 07/08/24 duloxetine 30 mg capsule,delayed 30 mg PO QPM 12/19/23 07/08/24 release famotidine 20 mg tablet 20 mg PO DAILY 12/19/23 07/08/24 trazodone 50 mg tablet 50 mg PO HS 12/19/23 07/08/24 sucralfate 1 gram tablet 1 g PO QID 04/09/24 07/08/24 diltiazem HCl 240 mg 240 mg PO DAILY #90 caps 04/30/24 07/08/24 capsule,extended release 24 hr metoprolol tartrate 100 mg tablet 100 mg PO BID #180 tabs 04/30/24 07/08/24 furosemide 40 mg tablet 40 mg PO BID #0 tabs 05/29/24 07/08/24 insulin aspart U-100 100 unit/mL 10 unit subcut TID 06/10/24 07/08/24 (3 mL) subcutaneous pen (Novolog FlexPen U-100 Insulin aspart) insulin glargine 100 unit/mL (3 58 unit (0.58 mL) subcut QPM #0 mL 06/12/24 07/08/24 mL) subcutaneous pen (Lantus Solostar U-100 Insulin) bimatoprost 0.01 % eye drops 1 drp ophthalmic (eye) QPM 07/08/24 07/08/24 (Lumigan) multivitamin (Daily Multi-Vitamin 1 tab PO DAILY 07/08/24 07/08/24 tablet) nystatin 100,000 unit/gram topical 1 applic topical BID 07/08/24 07/08/24 powder tiotropium 2.5 mcg-olodaterol 2.5 2 inh inhalation DAILY 07/08/24 07/08/24 mcg/actuation mist for inhalation (Stiolto Respimat) Previous Rx's ?Medication ?Instructions ?Recorded diltiazem HCl 240 mg 240 mg PO DAILY #90 caps 04/30/24 capsule,extended release 24 hr metoprolol tartrate 100 mg tablet 100 mg PO BID #180 tabs 04/30/24 furosemide 40 mg tablet 40 mg PO BID #0 tabs 05/29/24 insulin glargine 100 unit/mL (3 58 unit (0.58 mL) subcut QPM #0 mL 06/12/24 mL) subcutaneous pen (Lantus Solostar U-100 Insulin) Allergies Allergy/AdvReac Type Severity Reaction Status Date / Time gabapentin Allergy Unknown Unverified 07/08/24 12:09 pantoprazole Allergy Unknown Unverified 07/08/24 12:09 semaglutide (From Ozempic) Allergy Unknown Unverified 07/08/24 12:09 General ZARIA: 2 Medical Decision Making Quality:SDOH Health Related Social Needs: Health related social needs housing instability, house d, with risk of homelessness (Z59.811), education (Z55.6) PFSH All Active Problems (Updated 07/08/24 @ 15:14 by Chi Solitario) Knee pain, left (Acute) Heart failure with preserved ejection fraction (HFpEF, >= 50%) (Acute) Acute exacerbation of CHF (congestive heart failure) (Acute) Decubitus ulcer of sacral region (Acute) Acute respiratory failure with hypoxia and hypercapnia (Acute) NATHAN (obstructive sleep apnea) (Chronic) Yeast infection of the skin (Acute) Acute hypoxic respiratory failure (Acute) Respiratory failure (Acute) Asthma (Chronic) Elevated BUN (Acute) Atrial fibrillation with rapid ventricular response (Acute) COPD (chronic obstructive pulmonary disease) (Acute) Chronic obstructive pulmonary disease with (acute) exacerbation (Acute) Medical History CKD (chronic kidney disease) stage 3, GFR 30-59 ml/min Atrial fibrillation Loose left total knee arthroplasty Type 2 diabetes mellitus without complications HTN (hypertension) Contusion of toe, left Dermal mycosis Thyroid nodule Diabetic peripheral neuropathy Vitamin D deficiency Hyperparathyroidism HLD (hyperlipidemia) Obesity Anemia Leukocytosis Depressive disorder GERD (gastroesophageal reflux disease) Cellulitis Stress incontinence Diabetes Cardiac pacemaker in situ placed 04/22/2022 in [place]. [employer] Lottie ZURITA [id number] SERIAL # [id number] RH ENTERED 04/17/24 Anxiety Surgical History S/P AVR replaced with bovine valve Hx of CABG Family History Father Bone cancer Mother Myocardial infarction Brother Myocardial infarction Social History (Updated 07/08/24 @ 14:43 by Chi Solitario) Smoking/Tobacco Use Status: Former Tobacco Use Smoking risk assessment performed?: Yes Alcohol Intake: never Drug use: Never Substance use type: does not use Housing: apartment Do you feel safe at home: Yes Do you feel safe in your relationship?: Yes Additional Social history: Lives in her own apartment [facility]. Gets around with electric wheelchair POCUS Exam (ED) Limited Cardiac Exam DATE OF EXAM: 07/08/24 TIME OF EXAM: 11:59 PROVIDER THAT PERFORMED THE STUDY: Chi Nelson IS THIS A REPEAT EXAM DURING THIS ENCOUNTER: no REASON FOR EXAM: Dyspnea VISUALIZED STRUCTURES: Four Chambers, Left ventricle and LVOT VIEW OBTAINED: Apical 4-Chamber, Parasternal long-axis, Subxiphoid and Other (Lungs bilaterally) PERTINENT FINDINGS/IMPRESSION: No pericardial effusion and No RV dilation DIFFERENTIAL DIAGNOSES: Aortic outflow track less than 4 cm, moderate squeeze, RV less than LV, no significant pericardial effusion. Bilateral B-lines. Exam complete
--- NOTE | 2024-07-08 11:13 | DI.RAD_ITS ---
Exam(s) XR CHEST 1V IN DI DEPT EXAM: XR CHEST 1V IN DI DEPT CLINICAL HISTORY: Shortness of breath TECHNIQUE: 2D digital imaging was performed. COMPARISON: CR,XR XR CHEST 2V PA LATERAL from 05/26/2024 FINDINGS: Exam is limited by under penetration at the lung bases. LUNGS: Tiny bilateral pleural effusions. Increased interstitial markings greater at the lung bases c onsistent with CHF. HEART: Enlarged. Pacemaker. AORTA: Normal diameter. BONES: Unremarkable for age. Soft tissues: Unremarkable. IMPRESSION: Findings consistent with CHF. DATA REPOSITORY: RADIATION DOSE DELIVERED:
[2024-07-08 11:45] LABS: HCT 33.9 % (36.0-46.0); HGB 10.5 g/dL (11.2-15.7); MCH 29.4 pg (27.0-33.0); MCV 95 fL (80-95); Platelet Count 218 10^3/uL (130-400); RBC 3.57 10^6/uL (3.93-5.22); RDW 15.9 % (11.7-14.6); WBC 10.37 10^3/uL (4.4-10.8)
--- NOTE | 2024-07-08 11:45 | DI.RAD_ITS ---
Exam(s) XR KNEE LT 4V AP,LAT,SOFIA,PAT EXAM: XR KNEE LT 4V AP,LAT,SOFIA,PAT CLINICAL HISTORY: Left knee pain. TECHNIQUE: 2D digital imaging was performed. Three views. COMPARISON: No exams were available for comparison FINDINGS: BONES: No acute fracture is present. No bony destructive lesion is seen. JOINTS: The total knee prosthesis normally aligned. No joint effusion is seen. SOFT TISSUE: Mild diffuse soft tissue edema. IMPRESSION: Satisfactory alignment of total knee prosthesis. No evidence of fracture. DATA REPOSITORY: RADIATION DOSE DELIVERED:
[2024-07-08 11:47] LABS: BE (Venous) 14 mmol/L (-2-3); HCO3 (Venous) 38 mmol/L (23-28); O2 Sat (Venous) 74 %; TCO2 (Venous) 35 mmol/L (24-29); pCO2 (Venous) 55 mmHg (41-51); pH (Venous) 7.45 (7.31-7.41); pO2 (Venous) 41 mmHg
[2024-07-08 11:57] LABS: Absolute Lymphocyte Count 1.24 10^3/uL (1.2-3.4); Absolute Monocyte Count 0.21 10^3/uL (0.1-0.8); Absolute Neutrophil Count 8.81 10^3/uL (1.2-6.7); Diff Comment Manual Differential; RBC Morphology Normal
[2024-07-08 12:09] LABS: ALT 16 U/L (14-59); AST 21 U/L (15-37); Albumin 2.7 g/dL (3.4-5.0); Alkaline Phosphatase 119 U/L (46-116); Anion Gap 5.5 mmol/L (3-11); BUN 15 mg/dL (7-18); Bilirubin, Total 1.1 mg/dL (0.2-1.0); CO2 35.5 mmol/L (21.0-32.0); CREATININE 1.2 mg/dL (0.55-1.02); Calcium 8.3 mg/dL (8.5-10.1); Chloride 101 mmol/L (98-107); Estimated GFR 46.33 (mL/min/1.73m2); Glucose 336 mg/dL (74-106); Magnesium 1.4 mg/dL (1.8-2.4); Potassium 3.2 mmol/L (3.5-5.1); Sodium 142 mmol/L (136-145); Total Protein 6.3 g/dL (6.4-8.2); Troponin I 20 ng/L (<or=51)
[2024-07-08 12:16] LABS: D-Dimer 523 ng/mlFEU (<500)
[2024-07-08 12:23] LABS: COVID-19 PCR Negative (Negative); Influenza A PCR Negative (Negative); Influenza B PCR Negative (Negative); RSV PCR Negative (Negative)
[2024-07-08] MEDS: Magnesium Oxide 400 MG TAB PO (12:23)
[2024-07-08] MEDS: MAGNESIUM SULFATE 2 GM/50 ML BAG IVINF (12:24)
[2024-07-08 12:29] LABS: Source Nasopharynx
[2024-07-08 12:44] LABS: Troponin I 20 ng/L (<or=51)
[2024-07-08 13:05] LABS: NT-proBNP 3949 pg/mL (<300)
[2024-07-08] MEDS: Furosemide 40 MG/4 ML VIAL IVP (13:18)
--- NOTE | 2024-07-08 13:19 | HPE_ITS ---
Date of service: 07/08/24 Time of Service: 13:20 Assessment and Plan Assessment and plan (1) Acute exacerbation of CHF (congestive heart failure): Status: Acute Assessment and plan: Presentation c/w exacerbation of CHF based on CXR, b-lines diffusely on POCUS, BNaP ~4k, history, and exam including weight up 9kg from discharge 06/14. Trigger appears to have been running out of medication based on notes from 1 week ago at PCP office. She isn't able to confirm this but her short term memory is clearly poor. About 500ml urine out with 40mg IV furosemide. With CKD will bump up to 80mg BID IV. strict I/os, sosa for now, daily weights. (2) Heart failure with preserved ejection fraction (HFpEF, >= 50%): Status: Acute Assessment and plan: as above. should reconsider SGLT2i prior to discharge. (3) Acute hypoxic respiratory failure: Status: Acute Assessment and plan: Secondary to CHF as above. She is hypercapneic but this is chronic associated with COPD and this appears at baseline based on her VBG. (4) COPD (chronic obstructive pulmonary disease): Status: Acute Assessment and plan: I don't think this is playing a significant role in hypoxia Continue stiolto, no steroids for now. (5) Type 2 diabetes mellitus without complications: Assessment and plan: Continue home basal/bolus insulin and GLP-1. (6) Atrial fibrillation: Assessment and plan: Continue metoprolol and diltiazem for rate control. Apixaban for stroke prevention, also covers DVT prophylaxis. pulse trending up since arrival, make sure she didn't miss her rate control meds today. (7) CKD (chronic kidney disease) stage 3, GFR 30-59 ml/min: Assessment and plan: Cr slightly below baseline, expect increase with diuresis/volume contraction. Follow. (8) Anemia: Assessment and plan: Mild, drop from last month may be dilutional, follow (9) Decubitus ulcer of sacral region: Status: Acute Assessment and plan: continue wound care, need to offload.. She would benefit from hospital bed as with NATHAN/CHF and poor mobility she sleeps in recliner which has caused this. (10) Knee pain, left: Status: Acute Assessment and plan: contusion, no fracture on XR. Work with PT when SOB improves History of Present Illness History of Present Illness Chief Complaint: SOB Narrative: 78 yo F with CKD 3b, Asthma/COPD, HFpEF, CAD s/p CABG, Aortic stenosis s/p bovine AVR, Atrial fibrillation on apixaban, and type 2 DM who was sent in by visiting nurse who came for a routine visit today and found Ms. Adame's oxygen saturation at 81% She does endorse feeling more short of breath over the past 2 weeks and having increased swelling in her legs. She has not had chest pain, palpitations, or dizziness. She has not missed or changed medications and states her meds are bubble packed, but there is a note in the PCP record on Saturday 07/01 stating I have no medications as of Monday. To me she denies cough/sputum, runny nose, or sore throat. She has had admissions during each of the first three months of this year including April for CHF, May for COPD and CHF, and June for hypoglycemia associated with insulin and sulfonurea use. Her last echocardiogram was April of this year and showed preserved LVEF of 50% and good valve function. Review of Systems All systems reviewed & are unremarkable except as noted in HPI and below Musculoskeletal Comments: left knee pain, recently fell out of wheelchair. Baseline wheelchair bound, stand/pivots to toilet, bed. PFSH All Active Problems (Updated 07/08/24 @ 15:14 by Chi Solitario) Knee pain, left (Acute) Heart failure with preserved ejection fraction (HFpEF, >= 50%) (Acute) Acute exacerbation of CHF (congestive heart failure) (Acute) Decubitus ulcer of sacral region (Acute) Acute respiratory failure with hypoxia and hypercapnia (Acute) NATHAN (obstructive sleep apnea) (Chronic) Yeast infection of the skin (Acute) Acute hypoxic respiratory failure (Acute) Respiratory failure (Acute) Asthma (Chronic) Elevated BUN (Acute) Atrial fibrillation with rapid ventricular response (Acute) COPD (chronic obstructive pulmonary disease) (Acute) Chronic obstructive pulmonary disease with (acute) exacerbation (Acute) Medical History CKD (chronic kidney disease) stage 3, GFR 30-59 ml/min Atrial fibrillation Loose left total knee arthroplasty Type 2 diabetes mellitus without complications HTN (hypertension) Contusion of toe, left Dermal mycosis Thyroid nodule Diabetic peripheral neuropathy Vitamin D deficiency Hyperparathyroidism HLD (hyperlipidemia) Obesity Anemia Leukocytosis Depressive disorder GERD (gastroesophageal reflux disease) Cellulitis Stress incontinence Diabetes Cardiac pacemaker in situ placed 04/22/2022 in [place]. [employer] Lottie ZURITA [id number] SERIAL # [id number] RH ENTERED 04/17/24 Anxiety Surgical History S/P AVR replaced with bovine valve Hx of CABG Family History Father Bone cancer Mother Myocardial infarction Brother Myocardial infarction Social History (Updated 07/08/24 @ 14:43 by Chi Solitario) Smoking/Tobacco Use Status: Former Tobacco Use Smoking risk assessment performed?: Yes Alcohol Intake: never Drug use: Never Substance use type: does not use Housing: apartment Do you feel safe at home: Yes Do you feel safe in your relationship?: Yes Additional [facility] history[facility] Meds Allergies and Home Medications Allergies Allergy/AdvReac Type Severity Reaction Status Date / Time gabapentin Allergy Unknown Unverified 07/08/24 12:09 pantoprazole Allergy Unknown Unverified 07/08/24 12:09 semaglutide (From Ozempic) Allergy Unknown Unverified 07/08/24 12:09 Home Medications ?Medication ?Instructions ?Recorded ?Confirmed ?Type apixaban 5 mg tablet (Eliquis) 5 mg PO BID 12/19/23 06/14/24 History atorvastatin 80 mg tablet 80 mg PO DAILY 12/19/23 06/14/24 History duloxetine 30 mg capsule,delayed 30 mg PO QPM 12/19/23 06/14/24 History release famotidine 20 mg tablet 20 mg PO DAILY 12/19/23 06/14/24 History trazodone 50 mg tablet 50 mg PO HS 12/19/23 06/14/24 History sucralfate 1 gram tablet 1 g PO QID 04/09/24 06/14/24 History diltiazem HCl 240 mg 240 mg PO DAILY #90 caps 04/30/24 06/14/24 Rx capsule,extended release 24 hr metoprolol tartrate 100 mg tablet 100 mg PO BID #180 tabs 04/30/24 06/14/24 Rx furosemide 40 mg tablet 40 mg PO BID #0 tabs 05/29/24 06/14/24 Rx insulin aspart U-100 100 unit/mL 10 unit subcut TID 06/10/24 06/14/24 History (3 mL) subcutaneous pen (Novolog FlexPen U-100 Insulin aspart) insulin glargine 100 unit/mL (3 58 unit (0.58 mL) subcut QPM #0 mL 06/12/24 06/14/24 Rx mL) subcutaneous pen (Lantus Solostar U-100 Insulin) bimatoprost 0.01 % eye drops 1 drp ophthalmic (eye) QPM 07/08/24 07/08/24 History (Lumigan) multivitamin (Daily Multi-Vitamin 1 tab PO DAILY 07/08/24 07/08/24 History tablet) nystatin 100,000 unit/gram topical 1 applic topical BID 07/08/24 07/08/24 History powder tiotropium 2.5 mcg-olodaterol 2.5 2 inh inhalation DAILY 07/08/24 07/08/24 History mcg/actuation mist for inhalation (Stiolto Respimat) Exam Narrative Exam Narrative: GEN: Alert and oriented x 4, pleasant and cooperative, gives somewhat vague history with poor short term memory. Sitting at 45 degrees in rney, no acute distress at rest. HEENT: Head atraumatic. Conjunctiva clear, no icterus. PEERL, EOMI. no rhinorrhea, NC in place, MMM, OP benign. Neck is supple with no masses or lymphadenopathy, trachea midline LUNGS: Diffuse expiratory wheeze with rales 1/[address] up posterior thorax bilaterally, speaking in short sentences, dyspneic with movement. CV: irregular, rate around 90, with no murmurs, gallops, or rubs. I could not appreciate elevated JVP but limited by habitus ABD: active bowel sounds, soft, nontender and nondistended. No masses. EXT: no cyanosis, clubbing. 2+ pitting edema bilaterally. MSK: No joint redness. Bruising below left knee. Pain with flexion past 30 degrees NEURO: CN 2-12 grossly intact. Normal movement of 4 extremities. Normal speech and coordination. No tremor SKIN: No rashes. ~6cm pressure ulceration into dermis on buttock left of sacrum, dry, not draining, no redness around PSYCH: normal mood and affect Results Imaging Chest x-ray: report reviewed and image reviewed (irreglar narrow complex rhythm c/w atrial fibrilation, no STEMI ) Additional studies: POCUS results noted per ED note EKG: report reviewed (pulmonary congestion) and image reviewed Imaging Studies: knee XR: Satisfactory alignment of total knee prosthesis. No evidence of fracture. Labs 07/08/24 11:38 07/08/24 11:38 Labs: Laboratory Results - last 24 hr 07/08/24 07/08/24 07/08/24 11:22 11:38 11:38 WBC 10.37 RBC 3.57 L Hgb 10.5 L Hct 33.9 L MCV 95 MCH 29.4 MCHC 31.0 L RDW 15.9 H Plt Count 218 MPV 12.0 H Immature Gran % 0.0 Neutrophils % 85.0 Lymphocytes % 12.0 Monocytes % 2.0 Eosinophils % 0.0 Basophils % 1.0 Nucleated RBC % 0.0 Absolute Neutrophils 8.81 H Absolute Lymphocytes 1.24 Absolute Monocytes 0.21 Absolute Eosinophils 0.00 Absolute Basophils 0.10 RBC Morphology Normal D-Dimer 523 H VBG pH 7.45 H VBG pCO2 55 H VBG pO2 41 VBG HCO3 38 H VBG Total CO2 35 H VBG O2 Saturation 74 VBG Base Excess 14 H Sodium 142 Potassium 3.2 L Chloride 101 Carbon Dioxide 35.5 H Anion Gap 5.5 BUN 15 Creatinine 1.2 H Est GFR (CKD-EPI 2020) 46.33 Glucose 336 H Calcium 8.3 L Magnesium 1.4 L Cancelled Total Bilirubin 1.1 H AST 21 ALT 16 Alkaline Phosphatase 119 H Troponin I 20 NT-Pro-B Natriuret Pep 3949 H Total Protein 6.3 L Albumin 2.7 L COVID-19 Source Nasopharynx SARS-CoV-2 (PCR) Negative Influenza Type A (PCR) Negative Influenza Type B (PCR) Negative RSV (PCR) Negative 07/08/24 07/08/24 12:15 14:13 WBC RBC Hgb Hct MCV MCH MCHC RDW Plt Count MPV Immature Gran % Neutrophils % Lymphocytes % Monocytes % Eosinophils % Basophils % Nucleated RBC % Absolute Neutrophils Absolute Lymphocytes Absolute Monocytes Absolute Eosinophils Absolute Basophils RBC Morphology D-Dimer VBG pH VBG pCO2 VBG pO2 VBG HCO3 VBG Total CO2 VBG O2 Saturation VBG Base Excess Sodium Potassium Chloride Carbon Dioxide Anion Gap BUN Creatinine Est GFR (CKD-EPI 2020) Glucose Calcium Magnesium Total Bilirubin AST ALT Alkaline Phosphatase Troponin I 20 Cancelled NT-Pro-B Natriuret Pep Total Protein Albumin COVID-19 Source SARS-CoV-2 (PCR) Influenza Type A (PCR) Influenza Type B (PCR) RSV (PCR) Last Vital Signs Temp 36.8 C 07/08/24 11:17 Pulse 76 07/08/24 11:17 Resp 15 07/08/24 11:17 BP 139/80 07/08/24 11:17 Pulse Ox 96 07/08/24 11:17 Time Spent Time spent with Patient: >75 minutes Time was spent: preparing to see the patient(eg.review tests), obtaining and/or reviewing separately otained hiistory, ordering medications,tests, procedures, referring, communicating with other health dog day care attendant, indepentently interpreting results, counseling the patient and care coordination
--- NOTE | 2024-07-08 14:49 | PHA.REVIEW2 ---
Pharmacy Admission Review Admission Clinical Review Admission Pharmacy Review: Heart failure with preserved ejection fraction (HFpEF, >= 50%) (Acute) Acute exacerbation of CHF (congestive heart failure) (Acute) Decubitus ulcer of sacral region (Acute) Acute respiratory failure with hypoxia and hypercapnia (Acute) Acute hypoxic respiratory failure (Acute) COPD (chronic obstructive pulmonary disease) (Acute) gabapentin Allergy (Unverified 07/08/24 12:09) Unknown pantoprazole Allergy (Unverified 07/08/24 12:09) Unknown semaglutide (From Ozempic) Allergy (Unverified 07/08/24 12:09) Unknown Resuscitation Status DNR/DNI Height 5 ft 3 in Weight 114.5 kg Comments Comments/Follow Ups: watch for addition of any QTc prolonging medications Pharmacy Admission Review Renal Dosing Renal Dosing: BUN 15 mg/dL (7-18) 07/08/24 11:38 Creatinine 1.2 mg/dL (0.55-1.02) H 07/08/24 11:38 Medications needing adjustments: Intervened (CrCl 47.09 mL/min) List of meds needing interventions: Changed famotidine dose from 20mg daily to 10mg daily due to CrCl between 30-60 Anticoagulation Anticoagulation: Hgb 10.5 g/dL (11.2-15.7) L 07/08/24 11:38 Hct 33.9 % (36.0-46.0) L 07/08/24 11:38 Plt Count 218 10^3/uL (130-400) 07/08/24 11:38 Creatinine 1.2 mg/dL (0.55-1.02) H 07/08/24 11:38 DVT Prophylaxis: Reviewed Medications: Apixaban (5mg PO BID) Relevant Labs Relevant Labs: Sodium 142 mmol/L (136-145) 07/08/24 11:38 Potassium 3.2 mmol/L (3.5-5.1) L 07/08/24 11:38 Chloride 101 mmol/L (98-107) 07/08/24 11:38 Magnesium 1.4 mg/dL (1.8-2.4) L 07/08/24 11:38 Magnesium Cancelled 07/08/24 11:38 Electrolytes, C-Reactive P, ESR: Reviewed (K 3.2, Mg 1.4 - IV infusion given this afternoon) DM Control DM Control: Glucose 336 mg/dL (74-106) H 07/08/24 11:38 DM Control: Reviewed Insulin Dosing, Diabetic Medication: Has order for SS insulin and glargine 50 units at bedtime Cardiac Review Cardiac Review: Troponin I Cancelled 07/08/24 14:13 NT-Pro-B Natriuret Pep 3949 pg/mL (<300) H 07/08/24 11:38 BP, HR, EF%: Reviewed (BP WNL, HR 101 - has ranged from 101-120s for most of the day, oxygen flow rate 2) List meds needing interventions: has order for diltiazem 240mg CD daily, furosemide 80mg IVP BID and metoprolol 100mg BID QTc Review QTc: Reviewed (513 from 07/08/24) IV to PO Switch IV Medications: Reviewed (furosemide) Home Meds Home Med List reviewed: Intervened Relevent Home Meds Not ordered & why?: Order had been put in for Ozempic from patients home med list. Called nurse to see what day of the week patient uses. Per nurse patient reports that they do not use it. I canceled order and took off home med list. Current Meds Current Medication Order Review: Intervened Comments: Added IV admission order set Comments Comments/Follow Ups: watch for addition of any QTc prolonging medications
[2024-07-08 14:52] LABS: Lab Add On Test DONE
--- NOTE | 2024-07-08 16:11 | W.PC.ACHO ---
Registration Status: Primary Language: Preferred Language: ED Information & Data Chief Complaint SOB 07/08/24 11:17 Chief Complaint SOB 07/08/24 11:09 Triage Note Pt has had increased SOB 07/08/24 11:09 over the last few days with episodes of heart palpitations. history COPD and atrial fibrillation. Medical / Surgical History (Last Reviewed 07/08/24 @ 14:29 by Chi Solitario) CKD (chronic kidney disease) stage 3, GFR 30-59 ml/min Atrial fibrillation Type 2 diabetes mellitus without complications HTN (hypertension) Depressive disorder GERD (gastroesophageal reflux disease) Cardiac pacemaker in situ Loose left total knee arthroplasty Contusion of toe, left Dermal mycosis Thyroid nodule Diabetic peripheral neuropathy Vitamin D deficiency Hyperparathyroidism HLD (hyperlipidemia) Obesity Anemia Leukocytosis Cellulitis Stress incontinence Diabetes Anxiety (Last Reviewed 07/08/24 @ 14:29 by Chi Solitario) S/P AVR Hx of CABG Most Recent Vital Signs Temperature 36.5 C 07/08/24 14:55 Temperature Source Oral 07/08/24 11:17 Pulse 105 H 07/08/24 14:55 Pulse Rhythm Irregular 07/08/24 14:55 Pulse 100 H 07/08/24 14:20 Respiratory Rate 18 07/08/24 14:55 Respiratory Effort Labored 07/08/24 14:55 Respiratory Depth Shallow 07/08/24 14:55 Respiratory Pattern Normal 07/08/24 14:55 Blood Pressure 126/84 07/08/24 14:55 Blood Pressure Mean 84 07/08/24 14:18 Blood Pressure Position Supine 07/08/24 11:17 Pulse Oximetry 93 07/08/24 14:55 Oxygen Delivery Method Nasal Cannula 07/08/24 14:55 Oxygen Flow Rate 2 07/08/24 14:55 Allergies gabapentin Allergy (Unverified 07/08/24 12:09) Unknown pantoprazole Allergy (Unverified 07/08/24 12:09) Unknown semaglutide (From Ozempic) Allergy (Unverified 07/08/24 12:09) Unknown Precautions Isolation Standard precaution 07/08/24 11:17 IV IV Catheter Type [Right Saline Lock Forearm] IV Catheter Gauge [Right 18 Forearm] Diet Orders Category Date Time Status Diabetes Consistent CHO/Heart Healthy [DIET] Nutrition 07/08/24 Dinner Active Diagnostics 07/08/24 07/08/24 07/08/24 Range/Units 14:13 12:15 11:53 WBC (4.4-10.8) 10^3/uL RBC (3.93-5.22) 10^6/uL Hgb (11.2-15.7) g/dL Hct (36.0-46.0) % MCV (80-95) fL MCH (27.0-33.0) pg MCHC (32.0-36.0) % RDW (11.7-14.6) % Plt Count (130-400) 10^3/uL MPV (8.0-11.0) fL Immature Gran % % Neutrophils % % Lymphocytes % % Monocytes % % Eosinophils % % Basophils % % Nucleated RBC % (0.0-0.3) % Absolute Neutrophils (1.2-6.7) 10^3/uL Absolute Lymphocytes (1.2-3.4) 10^3/uL Absolute Monocytes (0.1-0.8) 10^3/uL Absolute Eosinophils (0.0-0.7) 10^3/uL Absolute Basophils (0.0-0.2) 10^3/uL RBC Morphology D-Dimer (<500) ng/mlFEU VBG pH (7.31-7.41) VBG pCO2 (41-51) mmHg VBG pO2 mmHg VBG HCO3 (23-28) mmol/L VBG Total CO2 (24-29) mmol/L VBG O2 Saturation % VBG Base Excess (-2-3) mmol/L Sodium (136-145) mmol/L Potassium (3.5-5.1) mmol/L Chloride (98-107) mmol/L Carbon Dioxide (21.0-32.0) mmol/L Anion Gap (3-11) mmol/L BUN (7-18) mg/dL Creatinine (0.55-1.02) mg/dL Est GFR (CKD-EPI 2020) (mL/min/1.73m2) Glucose (74-106) mg/dL Calcium (8.5-10.1) mg/dL Magnesium (1.8-2.4) mg/dL Total Bilirubin (0.2-1.0) mg/dL AST (15-37) U/L ALT (14-59) U/L Alkaline Phosphatase (46-116) U/L Troponin I Cancelled 20 (<or=51) ng/L NT-Pro-B Natriuret Pep (<300) pg/mL Total Protein (6.4-8.2) g/dL Albumin (3.4-5.0) g/dL COVID-19 Source SARS-CoV-2 (PCR) (Negative) Influenza Type A (PCR) (Negative) Influenza Type B (PCR) (Negative) RSV (PCR) (Negative) Add-On Test Request DONE 07/08/24 07/08/24 07/08/24 Range/Units 11:38 11:38 11:22 WBC 10.37 (4.4-10.8) 10^3/uL RBC 3.57 L (3.93-5.22) 10^6/uL Hgb 10.5 L (11.2-15.7) g/dL Hct 33.9 L (36.0-46.0) % MCV 95 (80-95) fL MCH 29.4 (27.0-33.0) pg MCHC 31.0 L (32.0-36.0) % RDW 15.9 H (11.7-14.6) % Plt Count 218 (130-400) 10^3/uL MPV 12.0 H (8.0-11.0) fL Immature Gran % 0.0 % Neutrophils % 85.0 % Lymphocytes % 12.0 % Monocytes % 2.0 % Eosinophils % 0.0 % Basophils % 1.0 % Nucleated RBC % 0.0 (0.0-0.3) % Absolute Neutrophils 8.81 H (1.2-6.7) 10^3/uL Absolute Lymphocytes 1.24 (1.2-3.4) 10^3/uL Absolute Monocytes 0.21 (0.1-0.8) 10^3/uL Absolute Eosinophils 0.00 (0.0-0.7) 10^3/uL Absolute Basophils 0.10 (0.0-0.2) 10^3/uL RBC Morphology Normal D-Dimer 523 H (<500) ng/mlFEU VBG pH 7.45 H (7.31-7.41) VBG pCO2 55 H (41-51) mmHg VBG pO2 41 mmHg VBG HCO3 38 H (23-28) mmol/L VBG Total CO2 35 H (24-29) mmol/L VBG O2 Saturation 74 % VBG Base Excess 14 H (-2-3) mmol/L Sodium 142 (136-145) mmol/L Potassium 3.2 L (3.5-5.1) mmol/L Chloride 101 (98-107) mmol/L Carbon Dioxide 35.5 H (21.0-32.0) mmol/L Anion Gap 5.5 (3-11) mmol/L BUN 15 (7-18) mg/dL Creatinine 1.2 H (0.55-1.02) mg/dL Est GFR (CKD-EPI 2020) 46.33 (mL/min/1.73m2) Glucose 336 H (74-106) mg/dL Calcium 8.3 L (8.5-10.1) mg/dL Magnesium Cancelled 1.4 L (1.8-2.4) mg/dL Total Bilirubin 1.1 H (0.2-1.0) mg/dL AST 21 (15-37) U/L ALT 16 (14-59) U/L Alkaline Phosphatase 119 H (46-116) U/L Troponin I 20 (<or=51) ng/L NT-Pro-B Natriuret Pep 3949 H (<300) pg/mL Total Protein 6.3 L (6.4-8.2) g/dL Albumin 2.7 L (3.4-5.0) g/dL COVID-19 Source Nasopharynx SARS-CoV-2 (PCR) Negative (Negative) Influenza Type A (PCR) Negative (Negative) Influenza Type B (PCR) Negative (Negative) RSV (PCR) Negative (Negative) Add-On Test Request Intake and Output - 24 Hour Total 07/08/24 11:03 thru 07/08/24 15:44 Weight 114.5 kg Other: Urine Color Pale Urine Appearance Cloudy Urinary Catheter Urinary Catheter Date of 07/08/24 Insertion [Urethral (Johnson)] Time of insertion [Urethral ( 15:44 Johnson)] Falls Risk Assessment History of Falls Previous History 07/08/24 14:55 Contributing Factors Impairments,Incontinence 07/08/24 14:55 Ambulatory Aids Uses ambulatory device + 07/08/24 14:55 Tubes/Lines With any additional score 07/08/24 14:55 Gait Evaluation W/any additional score 07/08/24 14:55 Cognition No cognitive impairment 07/08/24 14:55 Fall Total Score 91 07/08/24 14:55 Level of Risk Maximum Risk 07/08/24 14:55 Problems (Last Reviewed 07/08/24 @ 14:29 by Chi Solitario) Knee pain, left (Acute) Heart failure with preserved ejection fraction (HFpEF, >= 50%) (Acute) Acute exacerbation of CHF (congestive heart failure) (Acute) Decubitus ulcer of sacral region (Acute) Acute respiratory failure with hypoxia and hypercapnia (Acute) Acute hypoxic respiratory failure (Acute) COPD (chronic obstructive pulmonary disease) (Acute) v v v v v v v v v Sending and/or Receiving Nurses: Please use comment section below to note any information pertinent to the patient hand-off not included above. Information / Comments: Report received from: [facility] [employer]. Report called at 1400, request for med rec to be done before pt arrived on unit.
[2024-07-08] MEDS: Normal Saline Flush 10 ML SYR IVP ×2 (17:02→20:15)
[2024-07-08] MEDS: Furosemide 100 MG/10 ML VIAL 80 MG IVP (17:02)
[2024-07-08] MEDS: Insulin Aspart 300 UNITS/3 ML PEN SC (17:03)
[2024-07-08] MEDS: Sucralfate 1 GM TAB PO ×2 (17:03→22:20)
[2024-07-08] MEDS: Potassium Chloride 20 MEQ TABCR 40 MEQ PO (17:03)
[2024-07-08] MEDS: Nystatin POWDER 15 GM JAR TP (20:15)
[2024-07-08] MEDS: Metoprolol 50 MG TAB 100 MG PO (20:16)
[2024-07-08] MEDS: Bimatoprost 0.01% 2.5 ML BTL OP (20:16)
[2024-07-08] MEDS: Insulin Glargine 300 UNITS/3 ML PEN 50 UNITS SC (20:17)
[2024-07-08] MEDS: DULoxetine 30 MG CAP PO (20:17)
[2024-07-08] MEDS: Apixaban 5 MG TAB PO (20:17)
[2024-07-08] MEDS: traZODone 50 MG TAB PO (20:17)
[2024-07-09] VITALS (12 sets, daily range): BP systolic 98–116; BP diastolic 66–83; PULSE 105–134; RESP 18–22; TEMP 36.3–37; O2SAT 71–97
[2024-07-09] MEDS: Metoprolol 25 MG TAB PO ×2 (03:39→20:19)
[2024-07-09 07:11] LABS: HCT 32.2 % (36.0-46.0); HGB 10.2 g/dL (11.2-15.7); MCH 29.3 pg (27.0-33.0); MCHC 31.7 % (32.0-36.0); MCV 93 fL (80-95); MPV 12.5 fL (8.0-11.0); Platelet Count 186 10^3/uL (130-400); RBC 3.48 10^6/uL (3.93-5.22); RDW 15.8 % (11.7-14.6); RDW-SD 53.5 fL; WBC 9.11 10^3/uL (4.4-10.8)
[2024-07-09 07:24] LABS: Anion Gap 4.7 mmol/L (3-11); BUN 12 mg/dL (7-18); CO2 37.3 mmol/L (21.0-32.0); CREATININE 1.1 mg/dL (0.55-1.02); Calcium 8.3 mg/dL (8.5-10.1); Chloride 100 mmol/L (98-107); Estimated GFR 51.43 (mL/min/1.73m2); Glucose 184 mg/dL (74-106); Magnesium 1.4 mg/dL (1.8-2.4); Sodium 142 mmol/L (136-145)
[2024-07-09 07:27] LABS: Potassium 2.9 mmol/L (3.5-5.1)
[2024-07-09] MEDS: Atorvastatin 40 MG TAB 80 MG PO (08:06)
[2024-07-09] MEDS: dilTIAZem CD 120 MG CAPCR 240 MG PO (08:06)
[2024-07-09] MEDS: Famotidine 20 MG TAB 10 MG PO (08:07)
[2024-07-09] MEDS: Sucralfate 1 GM TAB PO ×4 (08:07→22:36)
[2024-07-09] MEDS: Apixaban 5 MG TAB PO ×2 (08:07→20:04)
[2024-07-09] MEDS: Insulin Aspart 300 UNITS/3 ML PEN SC ×3 (08:08→17:37)
[2024-07-09] MEDS: Nystatin POWDER 15 GM JAR TP ×2 (08:08→20:04)
[2024-07-09] MEDS: Tiotropium/Olodaterol 10 PUFF INHALER 2 PUFF IH (08:36)
[2024-07-09] MEDS: Metoprolol 50 MG TAB 100 MG PO ×2 (09:13→20:04)
[2024-07-09] MEDS: MAGNESIUM SULFATE 4 GM/100 ML BAG IV_INF (09:14)
--- NOTE | 2024-07-09 10:02 | NUR.NOTE ---
patient Axox4 this shift, BPs soft this AM, holding IV lasix per MD Solitario, HR 120s-130s afib, given AM cardizem and metoprolol, will continue to monitor on tele. Patient has intermittent pain to L knee, sosa to gravity, strict I/O, finished breakfast, transferred to chair with ranjith cochran, bathed this AM, will discuss POC with MDs in rounds, chair alarm on, call rangel in reach. Nursing Note:
--- NOTE | 2024-07-09 11:45 | W.DIABETESNO ---
Date of service: 07/09/24 Time of Service: 11:45 Diabetes Note Reason for Visit: nutrition assessment / diabetes education NOTE: Jessa is being treated for an acute exacerbation of CHF and has a history of COPD (no steroids currently), DMII with insulin at home -= pt states sliding scale at meals and currently 48u glargine at night. Denies in the last 6 months, skipping meals d/t food insecurity - makes her own meals and will have breakfast, a sandwich for lunch and most dinners are heated up from [employer] program. A1C was 7.4% 2 months ago and seems to be on target for her age and considering comorbidities. Denies chewing concerns although obviously missing dentation - but she orders what she can manage from the menu, texture-butler. She denies nausea but states she tried to have BM today and would come out - tends to lean on constipation - lower fiber diet at home from what she describes. denies food allergies or any special food needs from the kitchen. REcommendations: vitamin d lab and supplementation if low - pt at risk for deficiency d/t age/geographical location at this time of year/adiposityi/infrequent natural light exposure. will continue to monitor labs/glucose, weight, oral intake and provide education as needed/desired Time Spent in Nutritional Counseling and Treatment: 10 min
[2024-07-09] MEDS: POTASSIUM CHLORIDE 20 MEQ/100 ML BAG 50 MEQ IV_INF (12:42)
[2024-07-09] MEDS: Furosemide 40 MG/4 ML VIAL 60 MG IVP (12:42)
[2024-07-09] MEDS: Potassium Chloride 20 MEQ TABCR 40 MEQ PO ×2 (13:51→20:04)
--- NOTE | 2024-07-09 15:18 | PGE_ITS ---
Date of Service Date of service: 07/09/24 Time of Service: 11:18 Assessment and Plan Assessment and plan (1) Acute exacerbation of CHF (congestive heart failure): Status: Acute Assessment and plan: Presentation c/w exacerbation of CHF based on CXR, b-lines diffusely on POCUS, BNaP ~4k, history, and exam including weight up 9kg from discharge 06/14. Trigger appears to have been running out of medication based on notes from 1 week ago at PCP office. She isn't able to confirm this but her short term memory is clearly poor. About 500ml urine out with 40mg IV furosemide. With CKD will bump up to 80mg BID IV. BP low this morning, weight down but still fluid overloaded clinically, try a 60mg dose but continue diuresis.. strict I/os, sosa, daily weights. (2) Heart failure with preserved ejection fraction (HFpEF, >= 50%): Status: Acute Assessment and plan: as above. Trial on SGLT2i starting 07/10 (3) Acute hypoxic respiratory failure: Status: Acute Assessment and plan: Secondary to CHF as above. She was hypercapneic on admission VBG but this is chronic associated with COPD and this appears at baseline, continue oxygen for SpO2 of 88-91% (4) COPD (chronic obstructive pulmonary disease): Status: Acute Assessment and plan: I don't think this is playing a significant role in hypoxia at this point Continue stiolto, no steroids for now. (5) Type 2 diabetes mellitus without complications: Assessment and plan: Continue home basal/bolus insulin and GLP-1. Increase sliding scale to moderate (6) Atrial fibrillation: Assessment and plan: Continue metoprolol and diltiazem for rate control. Apixaban for stroke prevention, also covers DVT prophylaxis. pulse continues a little high, no change for now. (7) CKD (chronic kidney disease) stage 3, GFR 30-59 ml/min: Assessment and plan: Cr still slightly below baseline despite diuresis, expect some increase with diuresis/volume contraction. Follow. (8) Anemia: Assessment and plan: Mild, drop from last month may be dilutional, stable 07/08 to 07/09 (9) Decubitus ulcer of sacral region: Status: Acute Assessment and plan: continue wound care, need to offload.. She would benefit from hospital bed as with NATHAN/CHF and poor mobility she sleeps in recliner which has caused this. Work on this as prepping for discharge.. (10) Knee pain, left: Status: Acute Assessment and plan: contusion, no fracture on XR. Work with PT when SOB improves. Can start today. Subjective Subjective Patient reports: no new complaints and tolerating a regular diet; denies diarrhea, nausea, vomiting or fever Interval history since last seen: events: HR up around 120 overnight, given additional 25mg oral metoprolol SHe feels okay at rest. No chest pain. SOB a little better. Some cough, but this is chronic. Exam Narrative Exam Narrative: GEN: Alert and oriented, no acute distress at rest. HEENT: Head atraumatic. Conjunctiva clear, no icterus. PEERL, EOMI. no rhinorrhea, NC in place, MMM, OP benign. Neck is supple with no masses or lymphadenopathy, trachea midline LUNGS: Diffuse expiratory wheeze with rales 1/[address] up posterior thorax bilaterally, speaking in short sentences, dyspneic with movement. CV: irregular, rate around 100, with no murmurs, gallops, or rubs. I could not appreciate elevated JVP but limited by habitus ABD: active bowel sounds, soft, nontender and nondistended. No masses. EXT: no cyanosis, clubbing. 1-2+ pitting edema bilaterally. Objective Last Vital Signs Temp 36.4 C L 07/09/24 15:07 Pulse 105 H 07/09/24 15:07 Resp 22 07/09/24 15:07 BP 112/80 07/09/24 15:07 Pulse Ox 97 07/09/24 15:07 Laboratory Results - last 24 hr 07/09/24 06:44 WBC 9.11 RBC 3.48 L Hgb 10.2 L Hct 32.2 L MCV 93 MCH 29.3 MCHC 31.7 L RDW 15.8 H Plt Count 186 MPV 12.5 H Sodium 142 Potassium 2.9 L* Chloride 100 Carbon Dioxide 37.3 H Anion Gap 4.7 BUN 12 Creatinine 1.1 H Est GFR (CKD-EPI 2020) 51.43 Glucose 184 H Calcium 8.3 L Magnesium 1.4 L Time Spent with Patient Time Spent with Patient: 35-49 minutes Time was spent: preparing to see the patient(eg.review tests), obtaining and/or reviewing separately otained hiistory, ordering medications,tests, procedures, referring, communicating with other health pharmacy customer care specialist, indepentently interpreting results, counseling the patient and care coordination
--- NOTE | 2024-07-09 15:25 | CHAPLAIN ---
Jessa was up in the chair when I visited. She was pleasant, but not interested in further conversation. I explained my role and offered support. She is here for CHF and COPD. She was here last month as well but I don't remember meeting her then. According to Care Management notes, Jessa lives alone but is in touch by phone with her son on a daily basis.
[2024-07-09] MEDS: Furosemide 100 MG/10 ML VIAL 60 MG IVP (16:46)
--- NOTE | 2024-07-09 16:47 | PT.INNT ---
PT Notes Visit Reasons: congestive heart failure Pt approached x 2 for participation in Initial PT assessment. Pt declined to participate. Pt engaged in discussion of home situation and how she performs limited mobility within her home however unwilling to physically participate in any parts of assessment. Education and attempts to encourage participation unsuccessful. HORACIO Pelayo and Dr Solitario aware. Will attempt on 07/10/2024 in the morning prior to pt. getting out of bed. Time spent 20 minutes No charge.
--- NOTE | 2024-07-09 17:00 | NUR.NOTE ---
pt's lungs sound tight/wheezy, asked RT to do eval and make recommendation to hospitalist for prn inh but pt refusing assessment at this time, no distress noted, will continue to monitor. pt eating in chair, given IV lasix 60mg, sosa catheter with farrell red output which is new today, will monitor for any increase in hematuria. Chair alarm on, call rangel in reach. Nursing Note:
--- NOTE | 2024-07-09 17:04 | PDOC.CMIN ---
Date of service: 07/09/24 Time of Service: 17:04 Care Management Initial Assmt Initial Assessment Reason for Hospitalization: CHF exacerbation Functional Status/Living Situation Patient Presentation: Jessa presented to the ED yesterday with c/o dyspnea and weight gain. She was found to have a 9kg weight gain since her discharge on 06/14. Per the H&P, it appears that she has her meds bubble packed, and has been running out of medication. Jessa was sleeping each time CM went to meet with her today, but she is well known to CM from previous admissions. Jessa was noted to no longer be requiring nasal cannula O2. She also declined to work with PT today. Town of Residence: [facility] Resides with: Alone Significant Other/Family: Local (GrandjohnnyughterNguyen, lives in the same apartment building) Caregiver/Guardian: Jessa has caregivers through [facility] twice a week and receives MOW. She has a CM through [place] [facility], receives RN, and also receives support from [facility]. Natural Supports: granddaughterNguyen lives close, but is not very involved. Jessa speaks with her son, Chi, almost daily. Chi lives in [place]. 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) Instrumental Activities of Daily Living (ADLs): Requires support with Dishes/food prep, Groceries, Laundry and Transportation Physical Functioning/Mobility Assistive Device: Motorized wheel chair Advance Directives Advance Directives: Do you have an Advance Directive: N 04/10/24 23:24 AD On File at [facility]: N 03/21/24 10:05 Date Asked 06/10/24 06/10/24 16:32 AD Date Reviewed 07/08/24 07/08/24 13:21 COLST On File at [facility] COLST Date Scanned Code Status Resuscitation Status DNR/DNI Insurance Coverage/Financial Issues Insurance: HUMANA Medicare Replacement Medicaid of [place] Care Team Visit Care Team Role Provider Type Zeus Hebert Primary Care Provider NON-[facility] STAFF PHYSICIAN InPatient Jayesh Ortega Other Providers OTHER Chi Nelson MD Emergency Provider [facility] STAFF PHYSICIAN Chi Solitario Admit Provider [facility] STAFF PHYSICIAN Attending Provider Discharge Potential Discharge Needs: PCP F/U Appt Anticipated Barriers to Discharge: None Identified Patient/Family Education Needs: Review discharge instructions, discuss Ask Me Three Transportation: [facility] RCT Transportation: Wheel chair van Plan: Anticipate that Jessa will be discharged home with continuation of her HH RN and OT, and her [facility] caregivers. She will f/u with her PCP and continue per her plan of care. Jessa has a cardiology appointments on 08/21/24. Jessa will transport home via [facility] wheelchair van. CM will continue to follow. Social Determinants of Health Screening Will the Patient Participate in the Screening?: Unable to obtain PFSH All Active Problems (Updated 07/08/24 @ 15:14 by Chi Solitario) Knee pain, left (Acute) Heart failure with preserved ejection fraction (HFpEF, >= 50%) (Acute) Acute exacerbation of CHF (congestive heart failure) (Acute) Decubitus ulcer of sacral region (Acute) Acute respiratory failure with hypoxia and hypercapnia (Acute) NATHAN (obstructive sleep apnea) (Chronic) Yeast infection of the skin (Acute) Acute hypoxic respiratory failure (Acute) Respiratory failure (Acute) Asthma (Chronic) Elevated BUN (Acute) Atrial fibrillation with rapid ventricular response (Acute) COPD (chronic obstructive pulmonary disease) (Acute) Chronic obstructive pulmonary disease with (acute) exacerbation (Acute) Medical History CKD (chronic kidney disease) stage 3, GFR 30-59 ml/min Atrial fibrillation Loose left total knee arthroplasty Type 2 diabetes mellitus without complications HTN (hypertension) Contusion of toe, left Dermal mycosis Thyroid nodule Diabetic peripheral neuropathy Vitamin D deficiency Hyperparathyroidism HLD (hyperlipidemia) Obesity Anemia Leukocytosis Depressive disorder GERD (gastroesophageal reflux disease) Cellulitis Stress incontinence Diabetes Cardiac pacemaker in situ placed 04/22/2022 in [place]. [employer]med[employer] ZURITA [id number] SERIAL # [id number] RH ENTERED 04/17/24 Anxiety Surgical History S/P AVR replaced with bovine valve Hx of CABG Family History Father Bone cancer Mother Myocardial infarction Brother Myocardial infarction Social History (Updated 07/08/24 @ 14:43 by Chi Solitario) Smoking/Tobacco Use Status: Former Tobacco Use Smoking risk assessment performed?: Yes Alcohol Intake: never Drug use: Never Substance use type: does not use Housing: apartment Do you feel safe at home: Yes Do you feel safe in your relationship?: Yes Additional Social history: Lives in her own apartment [facility]. Gets around with electric wheelchair Readmission Within the Past 30 Days Yes or No: Yes Date of First Admission Date of 1st Admission: 06/10/24 Date of this Admission Date of Admission: 07/08/24 Office Visit Since 1st Admission Have you seen your PCP in the office since discharge?: Yes Date of PCP Appointment: last week Speicalist Appointments Have you seen any other specialist since your 1st Admission?: Yes Date you saw the Specialist: 06/14/24 Specialist Seen: cardiology I. Interview patient and/or Family Difficulty reaching your doctor or getting an office appt?: No Have you had trouble purchasing/ or taking medication?: Yes Describe barriers fpr purchasing or taking medication: feels she is running out of meds too quickly How do you take your medications and set up your pills?: bubble packed and delivered Did you feel ready for discharge when you left the last time: Yes Were services received that you thought were set up on disch: Yes What services were received?: HH SN ED visits How many ED visits in the past 12 months: 5 Anticipated HH Services Anticipated HH Services at Discharge [facility], OT and RN Anticipated Date of Discharge: 07/10/24..
[2024-07-09] MEDS: DULoxetine 30 MG CAP PO (20:04)
[2024-07-09] MEDS: traZODone 50 MG TAB PO (20:04)
[2024-07-09] MEDS: Bimatoprost 0.01% 2.5 ML BTL OP (20:05)
[2024-07-09] MEDS: Insulin Glargine 300 UNITS/3 ML PEN 50 UNITS SC (20:05)
[2024-07-09] MEDS: Levalbuterol 0.63 MG/3 ML UPD VIAL UPD (20:16)
[2024-07-10] VITALS (11 sets, daily range): BP systolic 92–130; BP diastolic 57–79; PULSE 104–130; RESP 18–28; TEMP 36–36.8; O2SAT 80–99
[2024-07-10 07:03] LABS: ALT 13 U/L (14-59); AST 13 U/L (15-37); Albumin 2.4 g/dL (3.4-5.0); Alkaline Phosphatase 103 U/L (46-116); Anion Gap 1.8 mmol/L (3-11); BUN 15 mg/dL (7-18); Bilirubin, Total 0.9 mg/dL (0.2-1.0); CO2 37.2 mmol/L (21.0-32.0); CREATININE 1.3 mg/dL (0.55-1.02); Calcium 8.5 mg/dL (8.5-10.1); Chloride 102 mmol/L (98-107); Estimated GFR 42.09 (mL/min/1.73m2); Glucose 154 mg/dL (74-106); Potassium 3.8 mmol/L (3.5-5.1); Sodium 141 mmol/L (136-145)
[2024-07-10] MEDS: Tiotropium/Olodaterol 10 PUFF INHALER 2 PUFF IH (07:37)
--- NOTE | 2024-07-10 07:40 | RESPIRATORY ---
Spoke with patient about NATHAN diagnosis and pt advised she has never had a sleep study or CPAP machine.
[2024-07-10] MEDS: Famotidine 20 MG TAB 10 MG PO (07:53)
[2024-07-10] MEDS: Empaglifozin 10 MG TAB PO (07:53)
[2024-07-10] MEDS: Potassium Chloride 20 MEQ TABCR 40 MEQ PO ×3 (07:53→20:21)
[2024-07-10] MEDS: dilTIAZem CD 120 MG CAPCR 240 MG PO (07:53)
[2024-07-10] MEDS: Atorvastatin 40 MG TAB 80 MG PO (07:53)
[2024-07-10] MEDS: Sucralfate 1 GM TAB PO ×4 (07:54→22:21)
[2024-07-10] MEDS: Apixaban 5 MG TAB PO ×2 (07:54→20:21)
[2024-07-10] MEDS: Metoprolol 50 MG TAB 100 MG PO ×2 (07:54→20:21)
[2024-07-10] MEDS: Insulin Aspart 300 UNITS/3 ML PEN SC ×3 (07:58→16:54)
[2024-07-10] MEDS: Normal Saline Flush 10 ML SYR IVP ×3 (07:58→20:20)
[2024-07-10] MEDS: Furosemide 100 MG/10 ML VIAL 60 MG IVP (07:59)
--- NOTE | 2024-07-10 08:51 | IN_ITS ---
PT Notes Visit Reasons: congestive heart failure Inpatient Physical Therapy Evaluation Date: 07/10/2024 Referring Doctor: Dr Solitario PT Orders: PT CONSULT: PT evaluation and treatment Precautions: Telemetry,Oxygen to keep sats 88-92%, pacemaker, Johnson, strict I&O's Patient Profile/Admitting Diagnosis: Jessa is a 78-year-old female presenting to the ED from home after visiting nurse found her with oxygen saturation of 81% and bilateral lower extremity swelling. Patient also reported pain in her left knee status post fall out of her wheelchair. Patient has a sacral ulcer. She was diagnosed with congestive heart failure exacerbation and treated with IV diuretics x-ray of the left knee was negative PMHX: Knee pain, left (Acute) Heart failure with preserved ejection fraction (HFpEF, >= 50%) (Acute) Acute exacerbation of CHF (congestive heart failure) (Acute) Decubitus ulcer of sacral region (Acute) Acute respiratory failure with hypoxia and hypercapnia (Acute) NATHAN (obstructive sleep apnea) (Chronic) Yeast infection of the skin (Acute) Acute hypoxic respiratory failure (Acute) Respiratory failure (Acute) Asthma (Chronic) Elevated BUN (Acute) Atrial fibrillation with rapid ventricular response (Acute) COPD (chronic obstructive pulmonary disease) (Acute) Chronic obstructive pulmonary disease with (acute) exacerbation (Acute) Medical History CKD (chronic kidney disease) stage 3, GFR 30-59 ml/min Atrial fibrillation Loose left total knee arthroplasty Type 2 diabetes mellitus without complications HTN (hypertension) Contusion of toe, left Dermal mycosis Thyroid nodule Diabetic peripheral neuropathy Vitamin D deficiency Hyperparathyroidism HLD (hyperlipidemia) Obesity Anemia Leukocytosis Depressive disorder GERD (gastroesophageal reflux disease) Cellulitis Stress incontinence Diabetes Cardiac pacemaker in situ placed 04/22/2022 in [place]. [employer] ZURITA [id number] SERIAL # [id number] RH ENTERED 04/17/24Anxiety Surgical History S/P AVR replaced with bovine valveHx of CABG Social History/Home Situation: Patient resides alone in an apartment. She utilizes a scooter/motorized wheelchair as primary mode of locomotion. She receives home health aide visiting nurse and occupational therapy. Patient also receives Meals on Wheels Equipment Owned/DME: Motorized wheelchair, grab bars in bathroom Subjective: Patient reports she sleeps in a recliner. She reports she is able to change the dressing on her sacral ulcer. She states she perform step turn transfers from recliner to power chair then transfers with grab bar on and off the toilet. She states she bathes when the aide comes in twice a week. Objective: [] General Observation: elderly female sitting upright in bed finishing her breakfast, bright red hematuria noted in Johnson Mental Status: Alert Ox 4, Pain: left knee 3/10 with prolonged standing and with palpation Vital Signs: oxygen at rest 90% after standing 79% Oxygen applied by RT ROM: Right Upper Extremity: WFL Left Upper Extremity:WFL Right Lower Extremity:WFL hip and knee limited by soft tissue approximation Left Lower Extremity: WFL hip and knee limited by soft tissue approximation Strength: Right Upper Extremity: 4/5 grossly Left Upper Extremity: 4/5 grossly Right Lower Extremity: hip 3-/5, knee extension 3+/5, flexion 3-/5 ankle 3/5 Left Lower Extremity: hip 3-/5, knee extension 3/5, flexion 3-/5, ankle 3/5 Sensation: intact Bed Mobility/Transfers: semireclined to sit at edge of bed mod A (patient sleeps in recliner at home) sit to/from stand : Pull to stand at bar or FWW CGA step turn transfer with FWW CGA 3/4 stand step turn without bar CGA Gait: nonambulatory Balance: [] Static Sitting: Normal Dynamic Sitting: good Static Standing: Fair+ Dynamic Standing: Fair Special Tests: Mobility Limitations Standardized Measure [facility] AM-PAC 6 clicks Basic Mobility Inpatient Short Form: Raw Score: 12 CMS Score: 68.66% Informed Consent/Education: Patient instructed in purpose of PT consult and plan of care. Assessment: Patient is a 78 year old female referred to physical therapy services with the diagnosis of CHF exacerbation. Patient currently needing supplemental oxygen which may be difficult for her to manage within her home utilizing power wheelchair. Uncertain of patient's ability to manage oxygen tubing safely with use of power chair as well as her ability to transfer tubing from a concentrator to a portable tank. Patient sleeps in recliner due to inability to tolerate laying flat in her bed which resulted in shortness of breath/dyspnea. Patient presents with clinical signs and symptoms consistent with admitting diagnosis, as demonstrated by the following impairment level findings: 1. impaired strength BLE / BUE Major muscle groups 2. Impaired sitting/standing balance 3. impaired activity tolerance 4. Limited ROM B hips and knees, B shoulders 5. pain left knee 6. dependent on supplemental oxygen Impairments are contributing to the following functional limitations: 1.AMPAC score. 2. decline in bed mobility skills 3. decline in transfer skills 4. Increase time to complete ADL/ mobility tasks 5. Increase risk for falls Patient is assessed as a Moderate 43308 complexity based on the following: History: 78-year-old female with past medical history as indicated above Examination: Demonstrates impairments in strength balance and mobility with underlying impairments and functional limitations as outlined above as well as AM-PAC score of 68.66% Presentation: Evolving Decision Making: Moderate Goals: X 1 week 1. Independent transfers step turn without assistive device to simulate transfers recliner to/from her power chair 2. Independent sit to stand at grab bar or FWW 3. Independent step turn with grab bar or FWW to simulate transfers power chair to/from commode Plan of Care/Treatment Plan: 1-2x/day, 7 days/week x 1 week. Plan of care has been reviewed with the [employer] ADMINISTRATOR providing the service under Physical Therapy direction. Initiate Physical Therapy intervention for strengthening, bed mobility, transfers, gait, stairs, balance training, use of assistive device. DISCHARGE RECOMMENDATIONS: [] [] Home with no services [] [X] Home with services PT. [] Home with outpatient PT [] [] SNF for continued rehabilitation [] [] Custodial Care [] [] SNF versus LTC based on ability to participate and progress [] TREATMENT CODE/TIME: 88672,56160/7:55 AM?8:31 AM, 10:32 AM?10:43 AM
--- NOTE | 2024-07-10 11:30 | PGE_ITS ---
Date of Service Date of service: 07/10/24 Time of Service: 11:30 Assessment and Plan Assessment and plan (1) Acute exacerbation of CHF (congestive heart failure): Status: Acute Assessment and plan: -Presentation c/w exacerbation of CHF based on CXR, b-lines diffusely on POCUS, BNaP ~4k, history, and exam including weight up 9kg from discharge 06/14. -Trigger appears to have been running out of medication based on notes from 1 week ago at PCP office though patient cannot confirm due to poor short term -appears to have good UOP though unsire if net volume is accurate given question of accurate input documentation -however, patient is improving on current regimen -will transition from IV to PO lasix 60mg BID -strict I/os, sosa, daily weights. (2) Heart failure with preserved ejection fraction (HFpEF, >= 50%): Status: Acute Assessment and plan: -as above. -Trial on SGLT2i starting 07/10 (3) Acute hypoxic respiratory failure: Status: Acute Assessment and plan: -Secondary to CHF as above. -She was hypercapneic on admission VBG but this is chronic associated with COPD and this appears at baseline, continue oxygen for SpO2 of 88-92% (4) COPD (chronic obstructive pulmonary disease): Status: Acute Assessment and plan: -without acute exacerbation -Continue stiolto, no steroids for now. (5) Type 2 diabetes mellitus without complications: Assessment and plan: -Continue home basal/bolus insulin and GLP-1. -Increase sliding scale to moderate (6) Atrial fibrillation: Assessment and plan: -Continue metoprolol and diltiazem for rate control. Apixaban for stroke prevention, also covers DVT prophylaxis. (7) CKD (chronic kidney disease) stage 3, GFR 30-59 ml/min: Assessment and plan: -Cr still slightly below baseline despite diuresis, expect some increase with diuresis/volume contraction. Follow. (8) Anemia: Assessment and plan: -Mild, drop from last month may be dilutional, stable 07/08 to 07/09 (9) Decubitus ulcer of sacral region: Status: Acute Assessment and plan: -continue wound care, need to offload.. She would benefit from hospital bed as with NATHAN/CHF and poor mobility she sleeps in recliner which has caused this. Work on this as prepping for discharge.. (10) Knee pain, left: Status: Acute Assessment and plan: -contusion, no fracture on XR. Work with PT when SOB improves. Can start today. Subjective Subjective Interval history since last seen: Patient states that she is feeling better and breathing better as compared to admission. Has no complaints or concerns at this time. Exam Narrative Exam Narrative: Elderly female sitting up in the chair no acute distress, 1 L nasal cannula in place, awake, alert, oriented to person and place, lungs clear to auscultation bilaterally, abdomen soft, nontender, nondistended Objective Last Vital Signs Temp 96.8 F L 07/10/24 07:09 Pulse 104 H 07/10/24 09:48 Resp 24 07/10/24 07:09 BP 98/71 L 07/10/24 07:09 Pulse Ox 92 07/10/24 10:43 Laboratory Results - last 24 hr 07/10/24 06:34 Sodium 141 Potassium 3.8 Chloride 102 Carbon Dioxide 37.2 H Anion Gap 1.8 L BUN 15 Creatinine 1.3 H Est GFR (CKD-EPI 2020) 42.09 Glucose 154 H Calcium 8.5 Total Bilirubin 0.9 AST 13 L ALT 13 L Alkaline Phosphatase 103 Total Protein 6.0 L Albumin 2.4 L Time Spent with Patient Time Spent with Patient: >50 minutes Time was spent: preparing to see the patient(eg.review tests), obtaining and/or reviewing separately otained hiistory, ordering medications,tests, procedures, referring, communicating with other health career development consultant, indepentently interpreting results, counseling the patient and care coordination
--- NOTE | 2024-07-10 12:45 | W.NUTRFU ---
Date of service: 07/10/24 Time of Service: 11:15 Nutrition Note NOTE: Brief follow up with Jessa - total protein and albumin labs low today - suggested trying to get more protein via ONS at nourishment times. Agreed to try sugar free Gelatein ONS with 20g protein per serving. Will try at 2pm and 7pm and check with pt on acceptance/tolerance. Time Spent in Nutritional Counseling and Treatment: 5 min
--- NOTE | 2024-07-10 15:27 | CMPROGNOTE_ITS ---
Date of service: 07/10/24 Time of Service: 15:27 Care Management Progress Note Progress Note Text Progress Note Text: Jessa was sitting up in the chair when CM met with her today. Per her usual, Jessa was very pleasant and offered a warm smile. She stated that she is feeling well and is hoping to go home tomorrow. She has called a friend at her apartment building, and asked that they put her motorized wheelchair in the lobby, so when [facility] drops her off, she can get right into her own chair, and scoot to my apartment. Jessa denied to CM that she is having any trouble with her medication running out, and was not really sure why CM had asked this question. Palliative Care is planning to see Jessa this afternoon. Discharge Potential Discharge Needs: PCP F/U Appt Anticipated Barriers to Discharge: None Identified Patient/Family Education Needs: Review discharge instructions, discuss Ask Me Three Transportation: [facility] Transportation: Wheel chair van (friend will leave Jessa's wheelchair in her building lobby for when she is dropped off.) Plan: Anticipate that Jessa will be discharged home tomorrow or the next day with a resumption of her HH RN and OT, and the addition of PT. She will continue with her [facility] caregivers and her community supports. Jessa will transport home via [facility] wheelchair van. CM will continue to follow. Social Determinants of Health Screening Will the Patient Participate in the Screening?: Unable to obtain
--- NOTE | 2024-07-10 16:50 | PCNE_ITS ---
Date of service: 07/10/24 Time of Service: 16:00 History of Present Illness Narrative: Ms. Germain is a 78 y/o F currently hospitalized for CHF exacerbation; PMHx sig for COPD/asthma, CKD 3b, HFpEF, T2DM, CAD (s/p CABG), (s/p AVR), A fib Hospital Course: presented to ED on 07/08 d/t hypoxic at home w/HH at 81%; SOB and swelling increasing over prior two weeks; admitted w/ acute exacerbation of CHF, initially diureses w/IV Lasix, transitioned to PO on 07/10; trial of SGLT2i started 07/10; PT consult w/recommendation w/home w/HH - Recent hospitalizations: Apr CHF, May COPD/CHF, June hypoglycemia Jessa agrees to short PC visit today, hoping for dinner soon. Jessa relocated to [place] from [place] last August. She was living in [place] near son Chi, unclear why she relocated to [place] as there do not appear to be family supports. Her granddaughter (daughter of son Anthony) does live in same building as her, however she is not involved in Jessa's care or day to day life. She does have a new best friend Pauline who lives on same floor of her building and is a great support. She feels safe in her home, able to navigate it safely w/use of her electric WC. She feels well supported by home health services and aid 2x/wk She has a pressure sore, HH doing wound career law clerk helping w/sponge bath assist, she is too scared to shower Always has a little wheeze w/breathing, not bothered by this currently, denies SOB. feels comfortable w/current resp med regimen Her son Chi is her HCA, she has previously completed this documentation, he has a copy of it. She is aware that her current code status is DNR/I Assessment and Plan Assessment and plan (1) Acute exacerbation of CHF (congestive heart failure): Status: Acute Assessment and plan: transitioned to oral Lasix today w/no issues improving anticipate discharge in next day or two - exacerbation potentially influenced by running out of meds (2) Heart failure with preserved ejection fraction (HFpEF, >= 50%): Status: Acute Assessment and plan: started on SLGT2i 07/10 w/recent hospitalizations/exacerbations this year need for f/u (3) NATHAN (obstructive sleep apnea): Status: Chronic Assessment and plan: RT monitoring w/new O2 requirement, desatting when sleeping (4) Decubitus ulcer of sacral region: Status: Acute Assessment and plan: continue wound care HH monitoring/managing in home (5) Asthma: Status: Chronic Assessment and plan: no acute changes or concerns today - expiratory wheeze present, no dyspnea (6) COPD (chronic obstructive pulmonary disease): Status: Acute Assessment and plan: w/recent exacerbation need for f/u (7) CKD (chronic kidney disease) stage 3, GFR 30-59 ml/min: Assessment and plan: need for f/u (8) Need for home health care: Status: Acute Assessment and plan: HH already following [facility] enrolled, [facility] enrolled [facility] (9) Palliative care encounter: Status: Acute Assessment and plan: PC to continue to follow, plan for outpatient f/u for ongoing ACP review - AD potentially complete and on file w/son f/u 1-3wks post discharge (10) ACP (advance care planning): Status: Acute Assessment and plan: reviewed and completed COLST form, DNR/I, no FT, trial abx/fluids reviewed palliative care, philosophy of care, outpatient opportunities reviewed current CHF treatment plan, improvement and likely discharge home w/her existing services, she feels comfortable w/current plan spent 20m w/ACP Review of Systems Narrative: as per HPI PFS All Active Problems (Updated 07/10/24 @ 17:01 by Jada Pillai NP) Need for home health care (Acute) ACP (advance care planning) (Acute) Palliative care encounter (Acute) Knee pain, left (Acute) Heart failure with preserved ejection fraction (HFpEF, >= 50%) (Acute) Acute exacerbation of CHF (congestive heart failure) (Acute) Decubitus ulcer of sacral region (Acute) Acute respiratory failure with hypoxia and hypercapnia (Acute) NATHAN (obstructive sleep apnea) (Chronic) Yeast infection of the skin (Acute) Acute hypoxic respiratory failure (Acute) Respiratory failure (Acute) Asthma (Chronic) Elevated BUN (Acute) Atrial fibrillation with rapid ventricular response (Acute) COPD (chronic obstructive pulmonary disease) (Acute) Chronic obstructive pulmonary disease with (acute) exacerbation (Acute) Medical History CKD (chronic kidney disease) stage 3, GFR 30-59 ml/min Atrial fibrillation Type 2 diabetes mellitus without complications HTN (hypertension) Depressive disorder GERD (gastroesophageal reflux disease) Cardiac pacemaker in situ placed 04/22/2022 in [place]. [employer] Lottie ZURITA [id number] SERIAL # [id number] RH ENTERED 04/17/24 Loose left total knee arthroplasty Contusion of toe, left Dermal mycosis Thyroid nodule Diabetic peripheral neuropathy Vitamin D deficiency Hyperparathyroidism HLD (hyperlipidemia) Obesity Anemia Leukocytosis Cellulitis Stress incontinence Diabetes Anxiety Surgical History S/P AVR replaced with bovine valve Hx of CABG Family History Father Bone cancer Mother Myocardial infarction Brother Myocardial infarction Social History Smoking/Tobacco Use Status: Former Tobacco Use Smoking risk assessment performed?: Yes Alcohol Intake: never Drug use: Never Substance use type: does not use Housing: apartment Do you feel safe at home: Yes Do you feel safe in your relationship?: Yes Additional Social history: Lives in her own apartment [place] [facility]. Gets around with electric wheelchair Exam Narrative Exam Narrative: General: older adult female, sitting in bedside reclinre w/feet elevated; asleep initially, wakes easily w/verbal stim HEENT: normocephalic, atraumatic; hearing WNL w/elevated/slowed voice Resp: even and unlabored, audible wheeze predominately on expiration phase, exp phase longer than insp; speaks full sentences w/no SOB Psych: cooperative, pleasant; answers questions appropriately; MS WNL, congruent mood/thought process; judgment/insight fair to limited Results Last Vital Signs Temp 97.9 F 07/10/24 15:50 Pulse 111 H 07/10/24 15:50 Resp 18 07/10/24 15:50 BP 92/66 L 07/10/24 15:50 Pulse Ox 90 L 07/10/24 15:50 Labs 07/09/24 06:44 07/10/24 06:34 Labs: Laboratory Results - last 24 hr 07/10/24 06:34 Sodium 141 Potassium 3.8 Chloride 102 Carbon Dioxide 37.2 H Anion Gap 1.8 L BUN 15 Creatinine 1.3 H Est GFR (CKD-EPI 2020) 42.09 Glucose 154 H Calcium 8.5 Total Bilirubin 0.9 AST 13 L ALT 13 L Alkaline Phosphatase 103 Total Protein 6.0 L Albumin 2.4 L Time Spent Time Spent with Patient Time Spent(min): 55
[2024-07-10] MEDS: Furosemide 20 MG TAB 60 MG PO (16:54)
[2024-07-10] MEDS: Nystatin POWDER 15 GM JAR TP (20:21)
[2024-07-10] MEDS: traZODone 50 MG TAB PO (20:21)
[2024-07-10] MEDS: DULoxetine 30 MG CAP PO (20:21)
[2024-07-10] MEDS: Bimatoprost 0.01% 2.5 ML BTL OP (20:22)
[2024-07-10] MEDS: Insulin Glargine 300 UNITS/3 ML PEN 50 UNITS SC (20:22)
[2024-07-11] VITALS (12 sets, daily range): BP systolic 86–126; BP diastolic 60–84; PULSE 103–137; RESP 16–24; TEMP 36.3–36.7; O2SAT 90–94
[2024-07-11] MEDS: dilTIAZem CD 120 MG CAPCR 240 MG PO (05:11)
[2024-07-11 06:42] LABS: HCT 33.1 % (36.0-46.0); HGB 10.5 g/dL (11.2-15.7); MCHC 31.7 % (32.0-36.0); MCV 91 fL (80-95); MPV 12.1 fL (8.0-11.0); Platelet Count 202 10^3/uL (130-400); RBC 3.62 10^6/uL (3.93-5.22); RDW 15.7 % (11.7-14.6); WBC 10.08 10^3/uL (4.4-10.8)
[2024-07-11 06:52] LABS: Anion Gap 3.1 mmol/L (3-11); BUN 22 mg/dL (7-18); CO2 34.9 mmol/L (21.0-32.0); CREATININE 1.4 mg/dL (0.55-1.02); Chloride 100 mmol/L (98-107); Estimated GFR 38.51 (mL/min/1.73m2); Glucose 117 mg/dL (74-106); Sodium 138 mmol/L (136-145)
[2024-07-11] MEDS: Atorvastatin 40 MG TAB 80 MG PO (07:28)
[2024-07-11] MEDS: Famotidine 20 MG TAB 10 MG PO (07:28)
[2024-07-11] MEDS: Empaglifozin 10 MG TAB PO (07:28)
[2024-07-11] MEDS: Sucralfate 1 GM TAB PO ×4 (07:28→21:22)
[2024-07-11] MEDS: Apixaban 5 MG TAB PO ×2 (07:28→21:22)
[2024-07-11] MEDS: Metoprolol 50 MG TAB 100 MG PO (07:28)
[2024-07-11] MEDS: Potassium Chloride 20 MEQ TABCR 40 MEQ PO ×3 (07:28→21:22)
[2024-07-11] MEDS: Nystatin POWDER 15 GM JAR TP ×2 (07:29→21:21)
[2024-07-11] MEDS: Furosemide 20 MG TAB 40 MG PO ×2 (07:30→16:17)
[2024-07-11] MEDS: Tiotropium/Olodaterol 10 PUFF INHALER 2 PUFF IH (08:05)
--- NOTE | 2024-07-11 08:45 | PT.INTREAT ---
PT Notes Visit Reasons: congestive heart failure Inpatient Physical Therapy Treatment Note [facility] Date:07/11/2024 AM session split session PRECAUTIONS:IV access Oxygen to keep sate 88-92% ( currently 1L/Min via NC) SUBJECTIVE: Pt reports she feels good, slept well and is hoping to go home today. She states she believes she can hookup oxygen to her scooter/Hover round chair so she should be able to get around in her home with the oxygen. 2nd approach pt reports feeling very tired. OBJECTIVE: reclined in chair requesting to use commode; 2nd session pt reclined in chair with low BP Nurse Marlon came in to start IV Fluid bolus and requested Pt to stay seated. ? PAIN: denies pain in left knee today VITALS: ? Pre-Treatment: 1L 93% ? Post-Treatment: 1L 90%? 10:28am attempted removal of oxygen with RT present: RA 83% at rest. Oxygen reapplied returned to 91% within 1 min. Pt with low BP reclined 86/72 HR 118 at rest Nurse adviced to remain seated allow IV Fluid to infuse may perform seated exercises. Therapeutic Activities ([id number][]): Direct one-on-one instruction in dynamic activities to improve functional performance. ? 8:20 amTRANSFERS? Sit-stand: SBA x 3 trials? Stand-sit: SBA x 3 trials cue to reach back ? Chair-commode: SBA step turn with FWW ? Commode-Chair: SBA with FWW step turn Provided skilled cues and instruction on performance and technique throughout. ?Ambulation ? Assistive Device: FWW? Weight bearing: full Assist: CGA ? Distance:? 10 feet x 2 ? Deviation: wide FUNMI ,reduced step length , excessive lateral weight shift ? Therapeutic Exercises : Direct one-on-one instruction in therapeutic exercises to develop strength, endurance, range of motion and flexibility. ?(1028am)??? Exercises ?seated LAQ, Ankle pump , QS GS , hip abd/add, Provided skilled instruction in proper exercise performance ASSESSMENT:?Pt has demonstrated significant improvement in her ability to take steps. Pt tolerated amb 10 feet x 2 with FWW with CGA. Pt is fearful of amb within her home as she has had multiple falls. HH PT to continue with strengthening and ambulation to reduce risk for falls. Pt remains on 1L oxygen at this time. Concern pt will have difficulty managing tubing with her scooter appropriately without getting tangled in her wheels. Pt with episode of low BP at 1030am requiring IV Fluid bolus to be started by Nurse. RT anticipates pt will need supplemental oxygen at home as she is desating at rest to 83% on RA PLAN: 1-2x/day, 7 days/week x 1 week. Plan of care has been reviewed with the ACCOUNT ENGINEER providing the service under Physical Therapy direction. Initiate Physical Therapy intervention for strengthening, bed mobility, transfers, gait, stairs, balance training, use of assistive device. TREATMENT CODE/TIME: 96198/ 1085-2101, 61934/ [id number] DISCHARGE RECOMMENDATION: Home with HH PT assess for oxygen tubing management and progress with ambulation with FWW
--- NOTE | 2024-07-11 09:06 | PDOC.CMPRO ---
Date of service: 07/11/24 Time of Service: 09:06 Care Management Progress Note Progress Note Text Progress Note Text: Jessa was sleeping in her recliner each time CM attempted to meet with her today. Per M.D, once her BP and HR are stable she will require a walk test to see if she qualifies for new home O2. No changes were made to her discharge plan, CM will follow. Discharge Potential Discharge Needs: PCP F/U Appt Anticipated Barriers to Discharge: None Identified Patient/Family Education Needs: Review discharge instructions, discuss Ask Me Three Transportation: [facility] (friend will leave Jessa's wheelchair in her building lobby for when she is dropped off) Plan: Anticipate, Jessa will be discharged home tomorrow or the next day with a resumption of her HH RN and OT, and the addition of PT. Possibly with [place] O2. She will continue with her [facility] caregivers and her community supports. Jessa will transport home via [facility] wheelchair van. CM will continue to follow. Social Determinants of Health Screening Will the Patient Participate in the Screening?: Unable to obtain
[2024-07-11] MEDS: Normal Saline 500 ML 1000 ML IV (10:32)
--- NOTE | 2024-07-11 10:37 | PGE_ITS ---
Date of Service Date of service: 07/11/24 Time of Service: 10:37 Assessment and Plan Assessment and plan (1) Acute exacerbation of CHF (congestive heart failure): Status: Acute Assessment and plan: -Presentation c/w exacerbation of CHF based on CXR, b-lines diffusely on POCUS, BNaP ~4k, history, and exam including weight up 9kg from discharge 06/14. -Trigger appears to have been running out of medication based on notes from 1 week ago at PCP office though patient cannot confirm due to poor short term -appears to have good UOP though unsire if net volume is accurate given question of accurate input documentation -however, patient is improving on current regimen -again decreasing lasix to 40mg PO BID, though currently on hold as last BP in the 80's systolic, will revieve 500cc NS bolus and reassess -strict I/os, sosa, daily weights. (2) Heart failure with preserved ejection fraction (HFpEF, >= 50%): Status: Acute Assessment and plan: -as above. -Trial on SGLT2i starting 07/10 (3) Acute hypoxic respiratory failure: Status: Acute Assessment and plan: -Secondary to CHF as above. -She was hypercapneic on admission VBG but this is chronic associated with COPD and this appears at baseline, continue oxygen for SpO2 of 88-92% -patient will have exercise oxygen test prior to discharge (4) COPD (chronic obstructive pulmonary disease): Status: Acute Assessment and plan: -without acute exacerbation -Continue stiolto, no steroids for now. (5) Type 2 diabetes mellitus without complications: Assessment and plan: -Continue home basal/bolus insulin and GLP-1. -Increase sliding scale to moderate (6) Atrial fibrillation: Assessment and plan: -Continue metoprolol and diltiazem for rate control. -Apixaban for stroke prevention, also covers DVT prophylaxis. -rates overnight 07/10 up to 140s, PO dilt given early around 6am, PO lopressor given at normal AM time -rates now down to 90-110's, may consider additional PO lopressor once BPs have improved (7) CKD (chronic kidney disease) stage 3, GFR 30-59 ml/min: Assessment and plan: -Cr still slightly below baseline despite diuresis, expect some increase with diuresis/volume contraction. Follow. (8) Anemia: Assessment and plan: -Mild, drop from last month may be dilutional, stable 07/08 to 07/09 (9) Decubitus ulcer of sacral region: Status: Acute Assessment and plan: -continue wound care, need to offload.. She would benefit from hospital bed as with NATHAN/CHF and poor mobility she sleeps in recliner which has caused this. Work on this as prepping for discharge.. (10) Knee pain, left: Status: Acute Assessment and plan: -contusion, no fracture on XR. Work with PT when SOB improves. Can start today. Subjective Subjective Interval history since last seen: Patient states that she is doing well today. She understands that we are working on increasing her BP while also decreasing her HR, otherwise she has no complaints or concerns at this time. Exam Narrative Exam Narrative: Elderly female sitting up in the chair no acute distress, 1 L nasal cannula in place, awake, alert, oriented to person and place, lungs clear to auscultation bilaterally, abdomen soft, nontender, nondistended Objective Last Vital Signs Temp 97.5 F L 07/11/24 07:26 Pulse 118 H 07/11/24 10:13 Resp 20 07/11/24 07:26 BP 86/72 L 07/11/24 10:13 Pulse Ox 91 L 07/11/24 08:07 Laboratory Results - last 24 hr 07/11/24 06:30 WBC 10.08 RBC 3.62 L Hgb 10.5 L Hct 33.1 L MCV 91 MCH 29.0 MCHC 31.7 L RDW 15.7 H Plt Count 202 MPV 12.1 H Sodium 138 Potassium 4.0 Chloride 100 Carbon Dioxide 34.9 H Anion Gap 3.1 BUN 22 H Creatinine 1.4 H Est GFR (CKD-EPI 2020) 38.51 Glucose 117 H Calcium 9.0 Time Spent with Patient Time Spent with Patient: >50 minutes Time was spent: preparing to see the patient(eg.review tests), obtaining and/or reviewing separately otained hiistory, ordering medications,tests, procedures, referring, communicating with other health infant childcare provider, indepentently interpreting results, counseling the patient and care coordination
[2024-07-11] MEDS: Insulin Aspart 300 UNITS/3 ML PEN SC (11:15)
--- NOTE | 2024-07-11 13:27 | PT.INTREAT ---
PT Notes Visit Reasons: congestive heart failure Inpatient Physical Therapy Treatment Note [facility] Date:07/11/2024 Pm session PRECAUTIONS:IV access Oxygen to keep sate 88-92% ( currently 1L/Min via NC) SUBJECTIVE: Pt declined to participate in walking the 10 feet to her bed resting and then walking back like she did in the am. She states she is hoping to go home today. OBJECTIVE: reclined in chair agreeable to perform transfers not ambulation this session. Pt mouth breather. Pt with expiratory wheezes during static stand and (+) BIRCH. Pain: denied VITALS: ?sit : BP 101/84 HR 118 SATS 90% 1L/MIN stand: BP 109/67 HR 137 SATS: 89% 1L/Min pt has dx of Scale Computing Therapeutic Activities (72720): Direct one-on-one instruction in dynamic activities to improve functional performance. ? TRANSFERS? Sit-stand: SBA x 2 trials?pushing up from chair and commode? Stand-sit: SBA x 2 trials cue to reach back ? Chair-commode: SBA step turn with FWW ? Commode-Chair: SBA with FWW step turn pt stood x 1min and x 48 sec at FWW with SBA Provided skilled cues and instruction on performance and technique throughout. ? ASSESSMENT:?Pt with improved BP this pm after receiving bolus IV fluids. Pt continues with erratic elevated HR (MD reza) / Afib. Telemetry in place. Pt with lower sats this session though remain within range 88-91% on 1L/min via NC. Pt demonstrates potential to ambulate with FWW however she does not like to participate in training to increase her functional activity tolerance and strength to reduce risk for falls. PLAN: 1-2x/day, 7 days/week x 1 week. Plan of care has been reviewed with the FURRIER SHOP SUPERVISOR providing the service under Physical Therapy direction. Initiate Physical Therapy intervention for strengthening, bed mobility, transfers, gait, balance training, use of assistive device. TREATMENT CODE/TIME: 66331/6294-5159 DISCHARGE RECOMMENDATION: Home with PT assess for oxygen tubing management and progress with ambulation with FWW
[2024-07-11] MEDS: Metoprolol 50 MG TAB PO (14:07)
[2024-07-11] MEDS: Insulin Glargine 300 UNITS/3 ML PEN 50 UNITS SC (21:20)
[2024-07-11] MEDS: Bimatoprost 0.01% 2.5 ML BTL OP (21:21)
[2024-07-11] MEDS: Metoprolol 50 MG TAB 150 MG PO (21:21)
[2024-07-11] MEDS: Normal Saline Flush 10 ML SYR IVP (21:22)
[2024-07-11] MEDS: traZODone 50 MG TAB PO (21:22)
[2024-07-11] MEDS: DULoxetine 30 MG CAP PO (21:22)
[2024-07-12 07:13] VITALS: BP 105/84; PULSE 125; RESP 24; TEMP 36.6; O2SAT 94
[2024-07-12] MEDS: Tiotropium/Olodaterol 10 PUFF INHALER 2 PUFF IH (08:09)
[2024-07-12] MEDS: Apixaban 5 MG TAB PO (08:20)
[2024-07-12] MEDS: Empaglifozin 10 MG TAB PO (08:20)
[2024-07-12] MEDS: dilTIAZem CD 120 MG CAPCR 240 MG PO (08:21)
[2024-07-12] MEDS: Sucralfate 1 GM TAB PO ×3 (08:21→16:01)
[2024-07-12] MEDS: Potassium Chloride 20 MEQ TABCR 40 MEQ PO (08:21)
[2024-07-12] MEDS: Atorvastatin 40 MG TAB 80 MG PO (08:21)
[2024-07-12] MEDS: Metoprolol 50 MG TAB 150 MG PO (08:21)
[2024-07-12] MEDS: Furosemide 20 MG TAB 40 MG PO ×2 (08:22→16:01)
[2024-07-12] MEDS: Normal Saline Flush 10 ML SYR IVP (09:11)
[2024-07-12] MEDS: Famotidine 20 MG TAB 10 MG PO (09:11)
[2024-07-12] MEDS: Nystatin POWDER 15 GM JAR TP (09:12)
--- NOTE | 2024-07-12 11:07 | RESPIRATORY ---
Addendum entered by Bartolome Cowart 07/12/24 14:09: Pt was unable to maintain adequate SpO2 on room air at rest. Pt agreed to exercise oximetry test with RT and qualified for new home O2. Pt discharging home today from [facility]. Pt will be administered [employer] [place] portable concentrator from our consignment closet. SN# [id number]. DME: [facility]. Pt's new baseline oxygen prescription is for 1L O2 24/ - including during exertion. Original Note: RT attempted to perform exercise oximetry test on patient to qualify for new home O2 upon discharge from facility. Pt stated that they already did that, referring to the PT assessment earlier. RT clarified that while PT did need to walk with her to assess her mobility, RT also needed to walk with her to assess her oxygen needs during exertion. Pt declined and loudly stated you're all liars. Pt then stated that she does not want oxygen in her home, when RT inquired what the major concern with oxygen was, pt replied because it is only a little bit, I don't need it and I don't want it, I'll be fine. MD and patient's nurse notified.
--- NOTE | 2024-07-12 11:18 | PT.INTREAT ---
PT Notes Visit Reasons: congestive heart failure Inpatient Physical Therapy Treatment Note [facility] Date:07/12/2024 am session PRECAUTIONS:IV access Oxygen to keep sate 88-92% ( currently 1L/Min via NC) SUBJECTIVE: Pt reports her left knee is aching it's the weather. OBJECTIVE: reclined in chair Pt mouth breather. Pt with expiratory wheezes during functional tasks and (+) BIRCH. Pain: denied VITALS: ? Therapeutic Activities (05013): Direct one-on-one instruction in dynamic activities to improve functional performance. ? TRANSFERS? Sit-stand: SBA x 2 trials?pushing up from chair and commode? Stand-sit: SBA x 2 trials cue to reach back ? Chair-commode: SBA step turn with FWW ? Commode-Chair: SBA with FWW Ambulation with FWW 8 feet x 2 CGA one episode of left knee instability at end of 8ft Provided skilled cues and instruction on performance and technique throughout. ? ASSESSMENT:? Pt tolerates short sessions of purposeful movement. She can become annoyed when asked to participate in functional transfers/mobility when not purposeful for her. Pt SaO2 remained within range 88-92% on 1L/min via NC. Pt able to ambulate with FWW distances less than 10 feet with FWW. She did have one episode of Left knee instability which she was able to correct. Pt with increased expiratory wheezing and increased dyspnea as compared to prior sessions. PLAN: 1-2x/day, 7 days/week x 1 week. Plan of care has been reviewed with the AMMUNITION ASSEMBLY II LABORER providing the service under Physical Therapy direction. Initiate Physical Therapy intervention for strengthening, bed mobility, transfers, gait, balance training, use of assistive device. TREATMENT CODE/TIME: 25220/[id number] DISCHARGE RECOMMENDATION: Home with HH PT assess for oxygen tubing management and progress with mobility with FWW
[2024-07-12 11:21] VITALS: BP 112/65; PULSE 78; RESP 24; TEMP 36.6; O2SAT 96
--- NOTE | 2024-07-12 12:15 | W.PM.DS.N ---
Date of service: 07/12/24 Time of Service: 12:16 DS: Diagnosis Discharge Diagnosis (1) Acute exacerbation of CHF (congestive heart failure): Status: Acute (2) Heart failure with preserved ejection fraction (HFpEF, >= 50%): Status: Acute (3) Acute hypoxic respiratory failure: Status: Acute (4) COPD (chronic obstructive pulmonary disease): Status: Acute (5) Type 2 diabetes mellitus without complications: (6) Atrial fibrillation: (7) CKD (chronic kidney disease) stage 3, GFR 30-59 ml/min: (8) Anemia: (9) Decubitus ulcer of sacral region: Status: Acute (10) Knee pain, left: Status: Acute Discharge Plan Disposition Patient Disposition: Home W/Home Health Services Condition: Good Discharge Details Reason For Visit: congestive heart failure Admit Date/Time: 07/08/24 13:05 Admit Provider: Chi Solitario Attending Provider: Chi Solitario Primary Care Provider: Zeus Hebert Hospital Course Hospital Course: Patient initially presented with signs and symptoms consistent with acute exacerbation of CHF and responded to IV diuretics. However, she also had an increase in her HR with her a-fib and require increasing her home metoprolol from 100 to 150mg BID which improved her HRs and are now down to 80-90's. The patient also required 1L NC which was confirmed by home exercise oxygen test with Respiratory therapy. Given that patients symptoms improved and her HR is well controlled it was determined that she was stable for discharge home with home health services. Home Meds and New Rx's Prescriptions: New metoprolol tartrate 50 mg Tablet 150 mg PO BID Qty: 120 0RF Jardiance 10 mg Tablet 10 mg PO QAM Qty: 90 0RF Continued sucralfate 1 gram tablet 1 g PO QID diltiazem HCl 240 mg capsule,extended release 24hr 240 mg PO DAILY Qty: 90 3RF atorvastatin 80 mg tablet 80 mg PO DAILY duloxetine 30 mg capsule,delayed release(DR/EC) 30 mg PO QPM Eliquis 5 mg tablet 5 mg PO BID famotidine 20 mg tablet 20 mg PO DAILY trazodone 50 mg tablet 50 mg PO HS furosemide 40 mg tablet 40 mg PO BID Qty: 0 0RF insulin aspart U-100 [Novolog FlexPen U-100 Insulin] 100 unit/mL (3 mL) insulin pen 10 unit SUBCUT TID insulin glargine [Lantus Solostar U-100 Insulin] 100 unit/mL (3 mL) insulin pen 58 unit subcut QPM Qty: 0 0RF Lumigan 0.01 % drops 1 drp ophthalmic (eye) QPM multivitamin [Daily Multi-Vitamin] Tablet 1 tab PO DAILY nystatin 100,000 unit/gram powder 1 applic topical BID Stiolto Respimat 2.5-2.5 mcg/actuation mist 2 inh inhalation DAILY Discontinued metoprolol tartrate 100 mg tablet 100 mg PO BID Qty: 180 3RF Discharge Instructions Stand Alone Forms: Nursing Discharge Form Referrals: Zeus Hebert [Primary Care Provider] - 07/31/24 2:10 pm Activity:: Activity as Tolerated Equipment/Supplies:: Oxygen (L/min Below) Diet:: As Tolerated Discharge Orders Discharge Orders: Discharge Order (Routine); Ordered 07/12/24 Ordered By: Sky Odell DS: Summary Time Spent with Patient providing and/or coordinating discharge services: Greater than 30 minutes Status at Discharge Functional status at discharge: independent ambulation Overall status at discharge: patient is back to baseline Mental Status: mental status grossly normal Speech and Movement: speech and movement normal Mood: congruent mood Affect: normal affect Quality:SDOH Health Related Social Needs: Health related social needs housing instability, housed, with risk of homelessness (Z59.811), education (Z55.6) Exam Psych Mental Status: mental status grossly normal Speech and Movement: speech and movement normal Mood: congruent mood Affect: normal affect DS: Data Vitals/I&O Vitals and I&O: Vital Signs Temperature 97.9 F 07/12/24 11:21 Temperature Source Temporal Artery Scan 07/12/24 11:21 Pulse 78 07/12/24 11:21 Pulse Rhythm Irregular 07/08/24 14:55 Pulse 100 H 07/08/24 14:20 Respiratory Rate 24 07/12/24 11:21 Respiratory Effort Labored 07/08/24 14:55 Respiratory Depth Shallow 07/08/24 14:55 Respiratory Pattern Normal 07/08/24 14:55 Blood Pressure 112/65 07/12/24 11:21 Blood Pressure Mean 84 07/08/24 14:18 Blood Pressure Position Supine 07/08/24 11:17 Pulse Oximetry 96 07/12/24 11:21 Oxygen Delivery Method Nasal Cannula 07/12/24 11:21 Oxygen Flow Rate 1 07/12/24 11:21 Pain Level 0 07/12/24 11:21 Comment MAP 81 07/11/24 21:15 Intake & Output 07/11/24 07/12/24 07/12/24 17:59 05:59 17:59 Intake Total 500 / 500 10 / 510 Output Total 1030 / 1030 150 / 1180 350 / 350 Balance -530 / -530 -140 / -670 -350 / -350 Weight 238 lb 5.115 oz 233 lb 3.985 oz Intake: IV 500 / 500 10 / 510 Output: Urine 1030 / 1030 150 / 1180 350 / 350 Other: Urine Color Bright Red Light Nguyen Yellow Gerlach Urine Appearance Clear Cloudy Clear Urine Odor Normal Normal Comment Patient's urine is clear and a farrell red in color. hematuria Stool Size Small Small Stool Characteristics Soft Formed Hard Brown PFSH All Active Problems (Updated 07/10/24 @ 17:01 by Jada Pillai NP) Need for home health care (Acute) ACP (advance care planning) (Acute) Palliative care encounter (Acute) Knee pain, left (Acute) Heart failure with preserved ejection fraction (HFpEF, >= 50%) (Acute) Acute exacerbation of CHF (congestive heart failure) (Acute) Decubitus ulcer of sacral region (Acute) Acute respiratory failure with hypoxia and hypercapnia (Acute) NATHAN (obstructive sleep apnea) (Chronic) Yeast infection of the skin (Acute) Acute hypoxic respiratory failure (Acute) Respiratory failure (Acute) Asthma (Chronic) Elevated BUN (Acute) Atrial fibrillation with rapid ventricular response (Acute) COPD (chronic obstructive pulmonary disease) (Acute) Chronic obstructive pulmonary disease with (acute) exacerbation (Acute) Medical History CKD (chronic kidney disease) stage 3, GFR 30-59 ml/min Atrial fibrillation Type 2 diabetes mellitus without complications HTN (hypertension) Depressive disorder GERD (gastroesophageal reflux disease) Cardiac pacemaker in situ placed 04/22/2022 in [place]. Kaylee ZURITA [id number] SERIAL # [id number] RH ENTERED 04/17/24 Loose left total knee arthroplasty Contusion of toe, left Dermal mycosis Thyroid nodule Diabetic peripheral neuropathy Vitamin D deficiency Hyperparathyroidism HLD (hyperlipidemia) Obesity Anemia Leukocytosis Cellulitis Stress incontinence Diabetes Anxiety Surgical History S/P AVR replaced with bovine valve Hx of CABG Family History Father Bone cancer Mother Myocardial infarction Brother Myocardial infarction Social History Smoking/Tobacco Use Status: Former Tobacco Use Smoking risk assessment performed?: Yes Alcohol Intake: never Drug use: Never Substance use type: does not use Housing: apartment Do you feel safe at home: Yes Do you feel safe in your relationship?: Yes Additional Social history: Lives in her own apartment [facility]. Gets around with electric wheelchair Time Spent with Patient Time Spent with Patient: <45 minutes Time was spent: preparing to see the patient(eg.review tests), obtaining and/or reviewing separately otained hiistory, ordering medications,tests, procedures, referring, communicating with other health acute care nurse, indepentently interpreting results, counseling the patient and care coordination
--- NOTE | 2024-07-12 12:16 | PDOC.HHF2F ---
Home Health Referral Home Health Orders Clinical synopsis of why skilled professionals are needed: CHF, COPD, a-fib Registered Nurse: Check all that apply Instruct on new or changed medication(s)/assess compliance: Ordered Assess for exacerbation of medical condition, instruct patient/caregivers on signs and symptoms to report for early detection: Ordered Physical Therapist: Check all that apply Increase strength & endurance for safe mobility at home: Ordered To design/establish home maintenance program: Ordered Fall reduction therapy program for patient with history of frequent falls: Ordered Home safety evaluation and teaching/gait training including stair management (if applicable): Ordered Occupational Therapist: Evaluate and treat for patient unable to perform ADL/IADL/self-care: Ordered Encounter Date and Reason: I certify that a FTF encounter for this patient was performed on July 12, 2024 and that such encounter was related to the primary reason the patient requires home health services. The encounter was conducted in the following manner: By me as the certifying physician, SERVOMECHANISM ASSEMBLER, PA or By an inpatient physician, SERVOMECHANISM ASSEMBLER or PA during an inpatient stay who communicated findings to me, Certification And Authentication I certify that I composed the above information based on my clinical judgment relating to this patient's medical condition and, if applicable, clinical findings communicated to me by the NPP or inpatient physician who performed the FTF encounter. Name of Provider that will be monitoring home health services: Zeus Hebert
[2024-07-12 13:28] VITALS: O2SAT 78
[2024-07-12 13:57] VITALS: PULSE 64; PULSE 70; PULSE 78; RESP 18; RESP 22; O2SAT 86; O2SAT 93
[2024-07-12 15:07] VITALS: BP 108/52; PULSE 60; RESP 24; TEMP 36.6; O2SAT 96
--- NOTE | 2024-07-12 15:19 | PDOC.CMDIS ---
Date of service: 07/12/24 Time of Service: 15:19 LACE Index Scoring Tool Questions: Length of Stay (in days): 4 - 6 Was the patient admitted via the E.D.?: Yes Comorbidities: Diabetes w/o Complication, Congestive Heart Failure and Mild Liver/Renal Disease E.D. Visits: 4 Answers: Total Score: 16 Risk of Readmission: High Risk Care Management Discharge Plan Reason for Hospitalization: CHF exacerbation Discharge Plan: Jessa will be discharged home this afternoon. Her RCT wheelchair van is not able to pick her up until 5:10. She will also have the help of a lift assist, as coordinated by CM, as her wheel chair is not in the lobby of the building as once thought. Jessa will be given a to-go meal from our kitchen. Jessa will have a continuation of her HH SN and OT, with the addition of PT. Jessa is also being sent home with new nasal cannula O2. Jessa uses a mail away pharmacy. Her new rx of Jardiance has been sent there. [facility] pharmacy will supply her with a couple of days worth to get Jessa to her delivery. Metoprolol dosing has been increased, and that rx also went to the mail pharmacy. HH has been notified and will help Jessa get the correct dosing at home until her delivery comes. She will need to take 1.5 tablets of her current dose. Patient/Family Education Needs: Review of discharge instructions, activity, limitations, and discuss ask me 3. Services Needed at Discharge: Home Health Care Services (RN, PT/OT) and Oxygen Therapy (new O2.) SDOH Health Related Social Needs: Health related social needs housing instability, housed, with risk of homelessness (Z59.811), education (Z55.6)
== END 2024-07-12 16:58 | disposition home health service (06) | DRG 291 ==
LOC: ER 13:21 → MS 14:30
PROVIDERS: Admitting Provider Family Medicine; Emergency Provider Emergency Medicine; PCP Student in an Organized Health Care Education/Training Program; Responsible Provider Family Medicine; Visit Provider Family Medicine
DX: I13.0 Hypertensive heart and chronic kidney disease with heart failure and stage 1 through stage 4 chronic kidney disease, or unspecified chronic kidney disease (principal); I50.33 Acute on chronic diastolic (congestive) heart failure; J96.01 Acute respiratory failure with hypoxia; I48.11 Longstanding persistent atrial fibrillation; J44.9 Chronic obstructive pulmonary disease, unspecified; N18.32 Chronic kidney disease, stage 3b; D64.9 Anemia, unspecified; M25.562 Pain in left knee; L89.152 Pressure ulcer of sacral region, stage 2; G47.33 Obstructive sleep apnea (adult) (pediatric); I25.10 Atherosclerotic heart disease of native coronary artery without angina pectoris; E11.42 Type 2 diabetes mellitus with diabetic polyneuropathy; E04.1 Nontoxic single thyroid nodule; E55.9 Vitamin D deficiency, unspecified; E21.3 Hyperparathyroidism, unspecified; E78.5 Hyperlipidemia, unspecified; E66.9 Obesity, unspecified; D72.829 Elevated white blood cell count, unspecified; F32.A Depression, unspecified; K21.9 Gastro-esophageal reflux disease without esophagitis; N39.3 Stress incontinence (female) (male); E11.22 Type 2 diabetes mellitus with diabetic chronic kidney disease; Z79.4 Long term (current) use of insulin; Z95.3 Presence of xenogenic heart valve; Z79.01 Long term (current) use of anticoagulants; Z95.1 Presence of aortocoronary bypass graft; Z87.891 Personal history of nicotine dependence; S80.02XA Contusion of left knee, initial encounter; X58.XXXA Exposure to other specified factors, initial encounter
CPT/HCPCS: 00123; 36415; 80048; 80053; 82805; 85027; 87637; 93005; 93308; 94618; 94640; 97110; 97162; 97530; 71045; 73564; 83735; 83880; 84484; 85025; 85379; 93010; 94664; 94760; 99223; 99232; 99233; 99239; J1815; J1941; J3475; J3480; J7614

== ENCOUNTER 2024-07-17 13:38 | Inpatient (IN) | payer MEDICARE, MEDICAID, SELFPAY ==
[2024-07-17] VITALS (103 sets, daily range): BP systolic 62–153; BP diastolic 14–109; PULSE 0–165; RESP 15–33; TEMP 36.3–36.5; O2SAT 78–100
--- NOTE | 2024-07-17 13:45 | DI.CT_ITS ---
Exam(s) CT HEAD WO EXAM: CT HEAD WO CLINICAL HISTORY: fall, blood thinners. TECHNIQUE: Imaging Protocol: Axial computed tomography images with coronal and sagittal reformatted images were created and reviewed COMPARISON: CT CT HEAD WO from 04/10/2024 FINDINGS: Ventricles and Extra axial spaces: Normal in size and morphology for the patient's age. Hemorrhage: None. Cerebral parenchyma: No evidence of acute infarct or mass. Midline shift: None. Brainstem/Cerebellum: Normal. Calvarium: Normal. Visualized Paranasal sinuses:Mucous retention in the left maxillary sinus and several ethmoid sinuses . Prior bilateral medial antrectomies. Mucous retention both frontal sinuses. Soft tissue density in the upper left nasal cavity may represent nasal polyps. Mastoids: Clear. Soft Tissues: Unremarkable. ORBITS: Unremarkable. PITUITARY: Not enlarged. IMPRESSION: No acute intracranial process. RADIATION DOSE DELIVERED: Total DLP DATA REPOSITORY: All CT scans at this facility are submitted to the National Radiology Data Registry (NRDR) Dose Index Registry (DIR) with the [employer] (ACR). RADIATION OPTIMIZATION: All CT scans at this facility use at least one of these dose optimization te chniques: automated exposure control; mA and/or kV adjustment per patient size (includes targeted exa ms where dose is matched to clinical indication); or iterative reconstruction.
--- NOTE | 2024-07-17 13:45 | DI.RAD_ITS ---
Exam(s) XR CHEST 2V PA LATERAL EXAM: XR CHEST 2V PA LATERAL CLINICAL HISTORY: fall, unknown down time TECHNIQUE: 2D digital imaging was performed. Two views. COMPARISON: CR XR CHEST 1V IN DI DEPT from 07/08/2024 FINDINGS: Exam is extremely limited by under penetration and poor pulmonary inflation. HEART: Enlarged. Pacemaker. Aorta: TAVR. PULMONARY VASCULATURE: Prominent MEDIASTINUM: Unremarkable. LUNGS: Suboptimally penetrated. Increased interstitial markings suspicious for CHF. Atelectasis of right upper lobe adjacent to fissure. PLEURAL SPACE: No pleural effusion or pneumothorax. BONE:Unremarkable for age. SOFT TISSUES: Unremarkable. IMPRESSION: Cardiomegaly and CHF. DATA REPOSITORY: RADIATION DOSE DELIVERED:
--- NOTE | 2024-07-17 14:05 | ED.GENADUL_ITS ---
Discharge Plan Discharge Details Chief Complaint: Fall/Non TraumaCriteria Primary Care Provider: Zeus Hebert ED Provider: Niki Cain Home Meds and New Rx's Prescriptions: No Action sucralfate 1 gram tablet 1 g PO QID diltiazem HCl 240 mg capsule,extended release 24hr 240 mg PO DAILY Qty: 90 3RF atorvastatin 80 mg tablet 80 mg PO DAILY duloxetine 30 mg capsule,delayed release(DR/EC) 30 mg PO QPM Eliquis 5 mg tablet 5 mg PO BID famotidine 20 mg tablet 20 mg PO DAILY trazodone 50 mg tablet 50 mg PO HS furosemide 40 mg tablet 40 mg PO BID Qty: 0 0RF insulin aspart U-100 [Novolog FlexPen U-100 Insulin] 100 unit/mL (3 mL) insulin pen 10 unit SUBCUT TID insulin glargine [Lantus Solostar U-100 Insulin] 100 unit/mL (3 mL) insulin pen 58 unit subcut QPM Qty: 0 0RF Lumigan 0.01 % drops 1 drp ophthalmic (eye) QPM multivitamin [Daily Multi-Vitamin] Tablet 1 tab PO DAILY nystatin 100,000 unit/gram powder 1 applic topical BID Stiolto Respimat 2.5-2.5 mcg/actuation mist 2 inh inhalation DAILY metoprolol tartrate 50 mg Tablet 150 mg PO BID Qty: 120 0RF Jardiance 10 mg Tablet 10 mg PO QAM Qty: 90 0RF HPI General Date/Time Provider Initiated Documentation: 07/17/24 13:51 . Limitations to Documentation: no limitations . Information obtained by: patient, EMS, RN notes reviewed and old records reviewed . History of Present Illness 78 year old F presents to the emergency department with the chief complaint of fall, was down for 2 days, denies injury, Patient started experiencing this day(s) and it has been constant. No relieving factors improve symptom(s), No exacerbating factors reported . Patient notes no other symptoms.. Patient did receive the following treatments prior to arrival, none Related Data Home Medications ?Medication ?Instructions ?Recorded ?Confirmed apixaban 5 mg tablet (Eliquis) 5 mg PO BID 12/19/23 07/17/24 atorvastatin 80 mg tablet 80 mg PO DAILY 12/19/23 07/17/24 duloxetine 30 mg capsule,delayed 30 mg PO QPM 12/19/23 07/17/24 release famotidine 20 mg tablet 20 mg PO DAILY 12/19/23 07/17/24 trazodone 50 mg tablet 50 mg PO HS 12/19/23 07/17/24 sucralfate 1 gram tablet 1 g PO QID 04/09/24 07/17/24 diltiazem HCl 240 mg 240 mg PO DAILY #90 caps 04/30/24 07/17/24 capsule,extended release 24 hr furosemide 40 mg tablet 40 mg PO BID #0 tabs 05/29/24 07/17/24 insulin aspart U-100 100 unit/mL 10 unit subcut TID 06/10/24 07/17/24 (3 mL) subcutaneous pen (Novolog FlexPen U-100 Insulin aspart) insulin glargine 100 unit/mL (3 58 unit (0.58 mL) subcut QPM #0 mL 06/12/24 07/17/24 mL) subcutaneous pen (Lantus Solostar U-100 Insulin) bimatoprost 0.01 % eye drops 1 drp ophthalmic (eye) QPM 07/08/24 07/17/24 (Lumigan) multivitamin (Daily Multi-Vitamin 1 tab PO DAILY 07/08/24 07/17/24 tablet) nystatin 100,000 unit/gram topical 1 applic topical BID 07/08/24 07/17/24 powder tiotropium 2.5 mcg-olodaterol 2.5 2 inh inhalation DAILY 07/08/24 07/17/24 mcg/actuation mist for inhalation (Stiolto Respimat) empagliflozin 10 mg tablet 10 mg PO QAM #90 tabs 07/12/24 07/17/24 (Jardiance) metoprolol tartrate 50 mg tablet 150 mg (3 x 50 mg) PO BID #120 tabs 07/12/24 07/17/24 Previous Rx's ?Medication ?Instructions ?Recorded diltiazem HCl 240 mg 240 mg PO DAILY #90 caps 04/30/24 capsule,extended release 24 hr furosemide 40 mg tablet 40 mg PO BID #0 tabs 05/29/24 insulin glargine 100 unit/mL (3 58 unit (0.58 mL) subcut QPM #0 mL 06/12/24 mL) subcutaneous pen (Lantus Solostar U-100 Insulin) empagliflozin 10 mg tablet 10 mg PO QAM #90 tabs 07/12/24 (Jardiance) metoprolol tartrate 50 mg tablet 150 mg (3 x 50 mg) PO BID #120 tabs 07/12/24 Allergies Allergy/AdvReac Type Severity Reaction Status Date / Time gabapentin Allergy Unknown Unverified 07/17/24 13:48 pantoprazole Allergy Unknown Unverified 07/17/24 13:48 semaglutide (From Ozempic) Allergy Unknown Unverified 07/17/24 13:48 General Stated Complaint: Fall/Non TraumaCriteria ZARIA: 3 Review of Systems Constitutional Constitutional: Reports as per HPI, Denies chills, Denies fever(s), Denies frequent falls, Denies headache(s), Denies lethargy, Denies poor appetite and Denies weakness Eyes Eyes: Denies change in vision ENT Ears, Nose, Mouth, and Throat: Denies dizziness, Denies headache(s) and Reports disequilibrium Cardiovascular Cardiovascular: Reports as per HPI and Denies chest pain Respiratory Respiratory: Reports as per HPI, Denies chest congestion, Denies cough, Denies pain on inspiration and Denies pain with cough Gastrointestinal Gastrointestinal: Reports as per HPI, Denies abdominal pain, Denies diarrhea, Denies nausea and Denies vomiting Musculoskeletal Musculoskeletal: Reports as per HPI and Denies back pain Integumentary/Breasts Skin/Breast: Reports as per HPI and Denies rash Neurologic Neurologic: Reports as per HPI, Denies dizziness, Denies frequent falls, Denies headache(s), Reports disequilibrium and Denies weakness Exam Const General: cooperative, comfortable, no acute distress and well developed Nutritional Appearance: well nourished and obese Orientation: alert, awake and oriented x3 HENMT Head: normal to inspection Ears: hearing grossly normal bilaterally Mouth: mucous membranes dry (appears dry) Neck Neck: normal visual inspection and full ROM Chest Chest: normal inspection of the chest, normal palpation of entire chest wall and no crepitus Resp Effort & Inspection: normal respiratory effort, able to speak in complete sentences and no respiratory distress Auscultation: clear to auscultation bilaterally, no rales, no rhonchi and no wheezes Cardio Rate: tachycardic Rhythm: abnormal rhythm irregularly irregular Heart Sounds: S1 normal and S2 normal GI Inspection: normal to inspection, no edema and non-distended Palpation: soft, not firm, no guarding, not rigid and nontender Auscultation: normal bowel sounds Back/Spine/Pelvis Back: no CVA tenderness Thoracic/Lumbar Spine: thoracic and lumbar spine normal to inspection Skin General skin exam: ecchymosis (large area ecchymosis LLE), excoriation (abdomen and groin) and scars (TKA left side, no erythema) Trauma: no lacerations or abrasions Neuro General: patient alert, patient awake and patient oriented x3 Cognition: normal cognition Speech: speech normal Extrem General: normal to inspection, capillary refill normal, no pedal edema, no calf tenderness and normal gait Course Vital Signs Vital signs: Vital Signs Temperature 36.3 C L 07/17/24 13:45 Pulse 115 H 07/17/24 13:45 Respiratory Rate 16 07/17/24 13:45 Blood Pressure 103/82 07/17/24 13:45 Pulse Oximetry 95 07/17/24 13:45 Temperature 36.3 C L 07/17/24 13:45 Pulse 115 H 07/17/24 13:45 Respiratory Rate 16 07/17/24 13:45 Blood Pressure 103/82 07/17/24 13:45 Pulse Oximetry 95 07/17/24 13:45 Oxygen Delivery Method Room Air 07/17/24 13:45 Oxygen Flow Rate 0 07/17/24 13:45 Pain Level 0 07/17/24 13:45 Medical Decision Making Patient is one 78-year-old female brought in via EMS for evaluation after fall and prolonged downtime. Patient reports that she has a chair that assist her to standing position and estimates about 2 days ago she returned to do so when she lost her balance coming out of the chair and fell landing on her living room floor. Since that time, she has been on the floor for estimated 48 hours. She states that she was able to move herself so did not stay in 1 position but could not bite herself to standing position. She reports that she was on oxygen throughout that entire time. Of note, patient was discharged from here 6 days ago after having admission for CHF exacerbation. She denies any increased shortness of breath. Denies any significant pain. Did not strike her head, no loss of consciousness. Patient is anticoagulated. Past medical history significant for CKD, atrial fibrillation, diabetes, hypertension, depression, GERD, pacer, neuropathy, hyperparathyroid, obesity, anemia, anxiety. She reportrs that she typically has home health but they have not been around recently. On exam, patient appears chronically ill and acutely toxic, she is hemodynam ically stable. She is not tachycardic here. This is certainly associated with her atrial fibrillation, I concerned that with her prolonged downtime she could be dehydrated or have other underlying pathology and I am concerned that focusing on blood pressure sarina has the hemodynamically instability if this is in response to other pathology. Would prefer to try a small fluid bolus as the patient does not have any fluids for 2 days and does not appear dehydrated despite having some lower extremity edema. Likely intravascularly low. She has not had an increase in shortness of breath or oxygen demand. She is on her chronic 1 L nasal cannula. Breathing well. She does not have any areas of discomfort. She does have some dry skin as well as some skin breakdown under the right breast and in the groin folds which were cleansed and debrided barrier cream. No evidence to suggest head trauma. No focal area of weakness although she does have some limited range of motion of the left knee associated with previous trauma. She reports that when admitted recently she did slip out of her wheelchair and suffered a contusion. Will obtain CT of her head out of abundance of caution as she is anticoagulated, her age and recent fall to rule out intracranial hemorrhage. Will obtain chest x-ray. Baseline labs including a CK as I am concerned for rhabdomyolysis. Patient states that she was able to move around more on the ground making this less likely. She does not appear acutely septic. Labs concerning for white count of 16.3, this is up from 10 during her recent admission. Her H&H are stable. Platelet count is normal. Her CMP shows creatinine 1.4 which is baseline. Potassium within normal limits. Initial troponin within normal limits, will obtain repeat. Any elevated white count, straight cath was performed as, based on her history, this is most likely. Patient has been incontinent for the past [address] and chest x-ray reviewed by radiology edges, no intracranial hemorrhage. CHF and cardiomegaly noted on her chest x-ray. Will add BNP with this finding on the chest x-ray although again, continue to feel that the patient is slightly intravascularly well. Gave the patient 250 cc bolus and will continue to monitor patient's vital signs and heart rate. At the end of my shift, urinalysis, reevaluation and disposition pending, labs BNP pending. Care transitioned to oncoming clinician. Quality:SDOH Health Related Social Needs: Health related social needs housing instability, house d, with risk of homelessness (Z59.811), education (Z55.6) PFSH All Active Problems (Updated 07/13/24 @ 00:01 by LUCILA EISENBERG) Need for home health care (Acute) ACP (advance care planning) (Acute) Palliative care encounter (Acute) Heart failure with preserved ejection fraction (HFpEF, >= 50%) (Acute) Decubitus ulcer of sacral region (Acute) Acute respiratory failure with hypoxia and hypercapnia (Acute) NATHAN (obstructive sleep apnea) (Chronic) Yeast infection of the skin (Acute) Respiratory failure (Acute) Asthma (Chronic) Elevated BUN (Acute) Atrial fibrillation with rapid ventricular response (Acute) COPD (chronic obstructive pulmonary disease) (Acute) Chronic obstructive pulmonary disease with (acute) exacerbation (Acute) Medical History CKD (chronic kidney disease) stage 3, GFR 30-59 ml/min Atrial fibrillation Type 2 diabetes mellitus without complications HTN (hypertension) Depressive disorder GERD (gastroesophageal reflux disease) Cardiac pacemaker in situ placed 04/22/2022 in [place]. 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 Gets around with electric wheelchair
[2024-07-17 14:34] LABS: BE (Venous) 9 mmol/L (-2-3); HCO3 (Venous) 34 mmol/L (23-28); O2 Sat (Venous) 44 %; TCO2 (Venous) 32 mmol/L (24-29); pCO2 (Venous) 56 mmHg (41-51); pH (Venous) 7.39 (7.31-7.41); pO2 (Venous) 29 mmHg
[2024-07-17 14:37] LABS: HCT 34.6 % (36.0-46.0); MCH 29.4 pg (27.0-33.0); MCHC 31.8 % (32.0-36.0); MCV 93 fL (80-95); MPV 11.9 fL (8.0-11.0); Platelet Count 308 10^3/uL (130-400); RBC 3.74 10^6/uL (3.93-5.22); RDW 15.9 % (11.7-14.6); RDW-SD 53.8 fL; WBC 16.32 10^3/uL (4.4-10.8)
[2024-07-17 14:58] LABS: Absolute Neutrophil Count 13.87 10^3/uL (1.2-6.7); Bands % 0 %
[2024-07-17 14:59] LABS: Absolute Eosinophil Count 0.16 10^3/uL (0.0-0.7); Absolute Lymphocyte Count 0.82 10^3/uL (1.2-3.4); Absolute Monocyte Count 1.14 10^3/uL (0.1-0.8); Anisocytosis 1+; Atypical Lymphocytes % 0 %; Diff Comment Manual Differential; Metamyelocytes % 1; Myelocytes % 1; Polychromasia Present
[2024-07-17 15:00] LABS: Poikilocytes 2+
[2024-07-17 15:13] LABS: ALT 21 U/L (14-59); AST 26 U/L (15-37); Albumin 2.8 g/dL (3.4-5.0); Alkaline Phosphatase 132 U/L (46-116); Anion Gap 6.4 mmol/L (3-11); BUN 24 mg/dL (7-18); Bilirubin, Total 1.7 mg/dL (0.2-1.0); CO2 32.6 mmol/L (21.0-32.0); CREATININE 1.4 mg/dL (0.55-1.02); Calcium 9.1 mg/dL (8.5-10.1); Chloride 102 mmol/L (98-107); Creatine Kinase 112 U/L (26-192); Estimated GFR 38.51 (mL/min/1.73m2); Glucose 123 mg/dL (74-106); Magnesium 1.7 mg/dL (1.8-2.4); Potassium 3.6 mmol/L (3.5-5.1); Sodium 141 mmol/L (136-145); Total Protein 6.7 g/dL (6.4-8.2); Troponin I 14 ng/L (<or=51)
[2024-07-17] MEDS: Lactated Ringers 250 ML IV (15:18)
[2024-07-17 16:10] LABS: Lactate 2.4 mmol/L (<or=2.0)
[2024-07-17 16:19] LABS: Bilirubin Negative (Negative); Blood Negative (Negative); Clarity Clear (Clear); Glucose >=1000 mg/dL (Negative); Ketones Negative (Negative); Leukocyte Esterase Negative (Negative); Nitrite Negative (Negative); Specific Gravity 1.025 (1.005-1.025); pH 5.5 (5-8)
[2024-07-17 16:27] LABS: Epithelial Cells Rare HPF (Negative); RBC 0-2 HPF (0-2); WBC 20-50 HPF (0-5)
[2024-07-17 16:28] LABS: Bacteria Moderate HPF (Negative); C & S Indicated? Yes; Crystals Negative HPF (Negative); Mucus Negative (Negative)
[2024-07-17] MEDS: cefTRIAXone 2 GM/50 ML BAG IVPB (16:42)
[2024-07-17 16:44] LABS: Troponin I 15 ng/L (<or=51)
[2024-07-17 16:45] LABS: NT-proBNP 9019 pg/mL (<300)
--- NOTE | 2024-07-17 16:55 | W.EDPROG ---
Date of service: 07/17/24 Time of Service: 16:57 Medical Decision Making This dictation utilizes [id number] dictation software and may contain unedited grammatical errors. Patient seen in signout from Niki Mayers PA-C, please see her complete note. Essentially this 78-year-old female had a fall at home and was down for up to 48 hours per her account, she was recent admitted here for CHF exacerbation discharged July 11 on 1 L of O2 which is her current use. She had elevated WBC on labs as well as elevated lactate of 2.5 with possible UTI, her chest x-ray showed question of CHF but she does not appear in any respiratory distress, appears dry so prior provider had held off on diuretics at this time, she is not A-fib with a rate up to 130 on arrival but reducing with 250 mL bolus of fluid. Patients' medical history: [ ]. Family and social history: [ ]. Differential / pathologies of concern include sepsis, UTI, CHF, respiratory failure, atrial fibrillation. Diagnostic studies of: - Reviewed prior studies-UA was pending and it shows urinary tract infection with 20-50 WBCs on micro, lactate resulted 2.5. Interventions of: - Started maintenance fluid at 75 mL/h ordered 2 g ceftriaxone for urinary tract infection, I am not giving a 30 cc/kg sepsis bolus as the patient has significant CHF. - Discussed with Dr. Lafleur for admission for acute sepsis secondary to urinary tract infection in the setting of chronic comorbidity of congestive heart failure, atrial fibrillation, chronic kidney disease, COPD ED Course/Assessment/Plan: 70-year-old female had a fall at home, suffered no major trauma, at her respiratory baseline on 1 L O2 by nasal cannula after discharge for CHF exacerbation July 11, she leukocytosis at time of signout, lactate resulted 2.5, patient has tachycardia and significant urinary tract infection, was given 250 mL fluid bolus prior to signout, giving 2 g ceftriaxone, admitted for sepsis, Dr. oSlitario excepts at 1700 hrs. Disposition of Sepsis, Urinary Tract Infection. Patient verbalized understanding of the plan and return to ED criteria and engaged in shared decision making. Medical Records Medical records reviewed: Yes I reviewed the patient's medical records. Imaging Data Radiologic Study: Attestation: I personally reviewed and interpreted this imaging study as follows: Imaging: CT Scan Radiologist's impression: EXAM: CT HEAD WO CLINICAL HISTORY: fall, blood thinners. TECHNIQUE: Imaging Protocol: Axial computed tomography images with coronal and sagittal reformatted images were created and reviewed COMPARISON: CT CT HEAD WO from 04/10/2024 FINDINGS: Ventricles and Extra axial spaces: Normal in size and morphology for the patient's age. Hemorrhage: None. Cerebral parenchyma: No evidence of acute infarct or mass. Midline shift: None. Brainstem/Cerebellum: Normal. Calvarium: Normal. Visualized Paranasal sinuses:Mucous retention in the left maxillary sinus and several ethmoid sinuses. Prior bilateral medial antrectomies. Mucous retention both frontal sinuses. Soft tissue density in the upper left nasal cavity may represent nasal polyps. Mastoids: Clear. Soft Tissues: Unremarkable. ORBITS: Unremarkable. PITUITARY: Not enlarged. IMPRESSION: No acute intracranial process. Radiologic Study #2: Attestation: I personally reviewed and interpreted this imaging study as follows: Imaging: X-Ray Radiologist's impression: EXAM: XR CHEST 2V PA LATERAL CLINICAL HISTORY: fall, unknown down time TECHNIQUE: 2D digital imaging was performed. Two views. COMPARISON: CR XR CHEST 1V IN DI DEPT from 07/08/2024 FINDINGS: Exam is extremely limited by under penetration and poor pulmonary inflation. HEART: Enlarged. Pacemaker. Aorta: TAVR. PULMONARY VASCULATURE: Prominent MEDIASTINUM: Unremarkable. LUNGS: Suboptimally penetrated. Increased interstitial markings suspicious for CHF. Atelectasis of right upper lobe adjacent to fissure. PLEURAL SPACE: No pleural effusion or pneumothorax. BONE:Unremarkable for age. SOFT TISSUES: Unremarkable. IMPRESSION: Cardiomegaly and CHF. Lab Data Lab results reviewed: Yes I reviewed the patient's lab results. Labs: 07/17/24 15:55 Urine - Reflex from Ua Urine Culture - Pending Laboratory Tests Range/Units 07/17/24 07/17/24 07/17/24 14:30 15:47 15:55 WBC (4.4-10.8) 10^3/uL 16.32 H RBC (3.93-5.22) 10^6/uL 3.74 L Hgb (11.2-15.7) g/dL 11.0 L Hct (36.0-46.0) % 34.6 L MCV (80-95) fL 93 MCH (27.0-33.0) pg 29.4 MCHC (32.0-36.0) % 31.8 L RDW (11.7-14.6) % 15.9 H Plt Count (130-400) 10^3/uL 308 MPV (8.0-11.0) fL 11.9 H Immature Gran % % 0.0 Neutrophils % % 85.0 Band Neutrophils % % 0 Lymphocytes % % 5.0 Atypical Lymphs % % 0 Monocytes % % 7.0 Eosinophils % % 1.0 Basophils % % 0.0 Metamyelocytes % 1 Myelocytes % 1 Nucleated RBC % (0.0-0.3) % 0.0 Absolute Neutrophils (1.2-6.7) 10^3/uL 13.87 H Absolute Lymphocytes (1.2-3.4) 10^3/uL 0.82 L Absolute Monocytes (0.1-0.8) 10^3/uL 1.14 H Absolute Eosinophils (0.0-0.7) 10^3/uL 0.16 Absolute Basophils (0.0-0.2) 10^3/uL 0.00 RBC Morphology See Below Polychromasia Present Poikilocytosis 2+ Anisocytosis 1+ VBG pH (7.31-7.41) 7.39 VBG pCO2 (41-51) mmHg 56 H VBG pO2 mmHg 29 VBG HCO3 (23-28) mmol/L 34 H VBG Total CO2 (24-29) mmol/L 32 H VBG O2 Saturation % 44 VBG Base Excess (-2-3) mmol/L 9 H VBG Lactate (<or=2.0) mmol/L 2.4 H* Sodium (136-145) mmol/L 141 Potassium (3.5-5.1) mmol/L 3.6 Chloride (98-107) mmol/L 102 Carbon Dioxide (21.0-32.0) mmol/L 32.6 H Anion Gap (3-11) mmol/L 6.4 BUN (7-18) mg/dL 24 H Creatinine (0.55-1.02) mg/dL 1.4 H Est GFR (CKD-EPI 2020) (mL/min/1.73m2) 38.51 Glucose (74-106) mg/dL 123 H Calcium (8.5-10.1) mg/dL 9.1 Magnesium (1.8-2.4) mg/dL 1.7 L Total Bilirubin (0.2-1.0) mg/dL 1.7 H AST (15-37) U/L 26 ALT (14-59) U/L 21 Alkaline Phosphatase (46-116) U/L 132 H Creatine Kinase (26-192) U/L 112 Troponin I (<or=51) ng/L 14 Total Protein (6.4-8.2) g/dL 6.7 Albumin (3.4-5.0) g/dL 2.8 L Urine Color (Yellow) Dark Yellow Urine Clarity (Clear) Clear Urine pH (5-8) 5.5 Ur Specific [place] (1.005-1.025) 1.025 Urine Protein (Neg-Trace) mg/dL 30 H Urine Ketones (Negative) mg/dL Negative Urine Blood (Negative) Negative Urine Nitrite (Negative) Negative Urine Bilirubin (Negative) Negative Urine Urobilinogen (Up to 0.2) mg/dL 1.0 H Ur Leukocyte Esterase (Negative) Negative Urine RBC (0-2) HPF 0-2 Urine WBC (0-5) HPF 20-50 H Ur Epithelial Cells (Negative) HPF Rare Urine Crystals (Negative) HPF Negative Urine Bacteria (Negative) HPF Moderate Urine Mucus (Negative) Negative Ur Culture Indicated? Yes Urine Glucose (Negative) mg/dL >=1000 H Quality:SDOH Health Related Social Needs: Health related social needs housing instability, housed, with risk of homelessness (Z59.811), education (Z55.6) Discharge Plan Disposition Patient Disposition: Admit to [facility] Condition: Stable Discharge Details Chief Complaint: Fall/Non TraumaCriteria Clinical Impression: Sepsis, Urinary tract infection Primary Care Provider: Zeus Hebert ED Provider: Gama Galarza Home Meds and New Rx's Prescriptions: No Action sucralfate 1 gram tablet 1 g PO QID diltiazem HCl 240 mg capsule,extended release 24hr 240 mg PO DAILY Qty: 90 3RF atorvastatin 80 mg tablet 80 mg PO DAILY duloxetine 30 mg capsule,delayed release(DR/EC) 30 mg PO QPM Eliquis 5 mg tablet 5 mg PO BID famotidine 20 mg tablet 20 mg PO DAILY trazodone 50 mg tablet 50 mg PO HS furosemide 40 mg tablet 40 mg PO BID Qty: 0 0RF insulin aspart U-100 [Novolog FlexPen U-100 Insulin] 100 unit/mL (3 mL) insulin pen 10 unit SUBCUT TID insulin glargine [Lantus Solostar U-100 Insulin] 100 unit/mL (3 mL) insulin pen 58 unit subcut QPM Qty: 0 0RF Lumigan 0.01 % drops 1 drp ophthalmic (eye) QPM multivitamin [Daily Multi-Vitamin] Tablet 1 tab PO DAILY nystatin 100,000 unit/gram powder 1 applic topical BID Stiolto Respimat 2.5-2.5 mcg/actuation mist 2 inh inhalation DAILY metoprolol tartrate 50 mg Tablet 150 mg PO BID Qty: 120 0RF Jardiance 10 mg Tablet 10 mg PO QAM Qty: 90 0RF
--- NOTE | 2024-07-17 17:07 | W.PM.HP.N ---
Date of service: 07/17/24 Time of Service: 17:07 Assessment and Plan Assessment and plan (1) Septic shock: Status: Acute Assessment and plan: Meets criterial for sepsis with elevated HR, WBC, RR, and lactate with UTI source Started with some fluids but BP dropped. POCUS c/w fluid overload with b-lines in lungs bilaterally and full IVC I don't think additional fluids will help. This case appears multifactorial with aspects of septic shock as well as cardiogenic Based on this assessment, stopping fluids and diuresing norepinephrine drip started, she will be admitted to ICU (2) Urinary tract infection: Status: Acute Assessment and plan: Treating with ceftriaxone. Her last urine culture 06/10 was sensitive to this. (3) Heart failure with preserved ejection fraction (HFpEF, >= 50%): Status: Acute Assessment and plan: Initial ED assessment was that she was mildly dry, gave gentle fluids, but now POCUS c/w fluid overload. LVEF grossly down, possible a/w sepsis. Last echo 04/2024 showed preserved LVEF EKG and troponins not c/w acute ischemia (4) Decubitus ulcer of sacral region: Status: Acute Assessment and plan: Continue to monitor, wound care. (5) COPD (chronic obstructive pulmonary disease): Status: Acute Assessment and plan: No clear exacerbation, neb didn't help much in ED, continue outpatient inhalers (6) Acute respiratory failure with hypoxia and hypercapnia: Status: Acute Assessment and plan: VGB c/w her chronic hypercarbia, but some increase hypoxia developing. Diuresing. (7) Atrial fibrillation: Assessment and plan: HR mildly elevated in setting of sepsis. Continue outpatient rate control with metoprolol and diltiazem, BPs have stayed stable. Continue apixaban (8) Type 2 diabetes mellitus without complications: Assessment and plan: Adequately controlled with A1c 7.4 in May, at goal for age/comorbidities. Continue basal/bolus insulin. Holding empagliflozin with acute UTI (9) NATHAN (obstructive sleep apnea): Status: Chronic Assessment and plan: not on CPAP chronically, contributing to low oxygen at night. (10) CKD (chronic kidney disease) stage 3, GFR 30-59 ml/min: Assessment and plan: At recent baseline (11) Anemia: Assessment and plan: mild, similar to previous (12) Hypomagnesemia: Status: Resolved Assessment and plan: replace and follow. With loop diuretic use should supplement chronically (13) Class 3 obesity: Assessment and plan: she may benefit from GLP-1 therapy, but did not tolerate semaglutide, f/u with pcp (14) DVT prophylaxis: Status: Acute Assessment and plan: on apixaban History of Present Illness History of Present Illness Chief Complaint: fall Narrative: 78 yo F with CKD 3b, Asthma/COPD, HFpEF, CAD s/p CABG, Aortic stenosis s/p bovine AVR, Atrial fibrillation on apixaban, and type 2 DM who was just admitted 07/08-07/12/24 at [facility] for CHF exacerbation after she ran out of her medication. She states she fell two days ago getting out of her lift chair. She can't remember exactly how it happened but she remembers the lift chair being up when she was on the ground. For two days she was yelling for help. She could not get up to eat or drink or take her medication. She urinated through her depends. Finally she was able to get help from a neighbor and EMS came. She has not had chest pain but does feel a little short of breath. No increase in cough or sputum. Her throat is sore and raspy from yelling but no other URI symtpoms. She has not had diarrhea, nausea, or vomiting. She has had urinary incontinence. She does not have fever or chills. She does feel fatigued and with poor appetite. This is her fifth admission this year, for CHF, CHF/COPD, and hypoglycemia. She states she thinks she may be better off at a halfway facility. Review of Systems All systems reviewed & are unremarkable except as noted in HPI and below PFSH All Active Problems Septic shock (Acute) Severe sepsis (Acute) DVT prophylaxis (Acute) Urinary tract infection (Acute) Sepsis (Acute) Need for home health care (Acute) ACP (advance care planning) (Acute) Palliative care encounter (Acute) Heart failure with preserved ejection fraction (HFpEF, >= 50%) (Acute) Decubitus ulcer of sacral region (Acute) Acute respiratory failure with hypoxia and hypercapnia (Acute) NATHAN (obstructive sleep apnea) (Chronic) Yeast infection of the skin (Acute) Respiratory failure (Acute) Asthma (Chronic) Elevated BUN (Acute) Atrial fibrillation with rapid ventricular response (Acute) COPD (chronic obstructive pulmonary disease) (Acute) Chronic obstructive pulmonary disease with (acute) exacerbation (Acute) Medical History Class 3 obesity Chronic respiratory failure with hypercapnia CKD (chronic kidney disease) stage 3, GFR 30-59 ml/min Atrial fibrillation Loose left total knee arthroplasty Type 2 diabetes mellitus without complications HTN (hypertension) Contusion of toe, left Dermal mycosis Thyroid nodule Diabetic peripheral neuropathy Vitamin D deficiency Hyperparathyroidism HLD (hyperlipidemia) Anemia Leukocytosis Depressive disorder GERD (gastroesophageal reflux disease) Cellulitis Stress incontinence Diabetes Cardiac pacemaker in situ placed 04/22/2022 in [place]. [employer] Lottie ZURITA [id number] SERIAL # [id number] RH ENTERED 04/17/24 Anxiety Surgical History S/P AVR replaced with bovine valve Hx of CABG Family History Father Bone cancer Mother Myocardial infarction Brother Myocardial infarction Social History Smoking/Tobacco Use Status: Former Tobacco Use Smoking risk assessment performed?: Yes Alcohol Intake: never Drug use: Never Substance use type: does not use Housing: apartment Do you feel safe at home: Yes Do you feel safe in your relationship?: Yes Additional Social history: Lives in her own apartment [facility]. Gets around with electric wheelchair Meds Allergies and Home Medications Allergies Allergy/AdvReac Type Severity Reaction Status Date / Time gabapentin Allergy Unknown Unverified 07/17/24 13:48 pantoprazole Allergy Unknown Unverified 07/17/24 13:48 semaglutide (From Ozempic) Allergy Unknown Unverified 07/17/24 13:48 Home Medications ?Medication ?Instructions ?Recorded ?Confirmed ?Type apixaban 5 mg tablet (Eliquis) 5 mg PO BID 12/19/23 07/17/24 History atorvastatin 80 mg tablet 80 mg PO DAILY 12/19/23 07/17/24 History duloxetine 30 mg capsule,delayed 30 mg PO QPM 12/19/23 07/17/24 History release famotidine 20 mg tablet 20 mg PO DAILY 12/19/23 07/17/24 History trazodone 50 mg tablet 50 mg PO HS 12/19/23 07/17/24 History sucralfate 1 gram tablet 1 g PO QID 04/09/24 07/17/24 History diltiazem HCl 240 mg 240 mg PO DAILY #90 caps 04/30/24 07/17/24 Rx capsule,extended release 24 hr furosemide 40 mg tablet 40 mg PO BID #0 tabs 05/29/24 07/17/24 Rx insulin aspart U-100 100 unit/mL 10 unit subcut TID 06/10/24 07/17/24 History (3 mL) subcutaneous pen (Novolog FlexPen U-100 Insulin aspart) insulin glargine 100 unit/mL (3 58 unit (0.58 mL) subcut QPM #0 mL 06/12/24 07/17/24 Rx mL) subcutaneous pen (Lantus Solostar U-100 Insulin) bimatoprost 0.01 % eye drops 1 drp ophthalmic (eye) QPM 07/08/24 07/17/24 History (Lumigan) multivitamin (Daily Multi-Vitamin 1 tab PO DAILY 07/08/24 07/17/24 History tablet) nystatin 100,000 unit/gram topical 1 applic topical BID 07/08/24 07/17/24 History powder tiotropium 2.5 mcg-olodaterol 2.5 2 inh inhalation DAILY 07/08/24 07/17/24 History mcg/actuation mist for inhalation (Stiolto Respimat) empagliflozin 10 mg tablet 10 mg PO QAM #90 tabs 07/12/24 07/17/24 Rx (Jardiance) metoprolol tartrate 50 mg tablet 150 mg (3 x 50 mg) PO BID #120 tabs 07/12/24 07/17/24 Rx Exam Narrative Exam Narrative: GEN: Alert and oriented x 4, pleasant and cooperative, gives clear answers to direct questions, but somewhat vague history with poor short term memory. Sitting at 45 degrees in gurney, no acute distress at rest. HEENT: Head atraumatic. Conjunctiva clear, no icterus. PEERL, EOMI. no rhinorrhea, NC in place, MMM, OP benign. Neck is supple with no masses or lymphadenopathy, trachea midline. LUNGS: Basilar rales, otherwise clear bilaterally, speaking in short sentences, not in respiratory distress at rest CV: irregular, rate around 110, with no murmurs, gallops, or rubs. I could not appreciate elevated JVP but limited by habitus ABD: active bowel sounds, soft, and nondistended. Mild tenderness with deep RUQ tenderness, neg murphies. No masses. EXT: no cyanosis, clubbing. 2+ pitting edema bilaterally. warm, not tender MSK: No joint redness. Bruising below left knee. Pain with flexion past 30 degrees NEURO: CN 2-12 grossly intact. Normal movement of 4 extremities. Normal speech and coordination. No tremor SKIN: No rashes. pressure ulceration into dermis on buttock left of sacrum, dry, not draining, no redness around PSYCH: normal mood and affect, nl thought process Results Labs 07/17/24 14:30 07/17/24 14:30 Labs: Laboratory Results - last 24 hr 07/17/24 07/17/24 07/17/24 14:30 15:47 15:55 WBC 16.32 H RBC 3.74 L Hgb 11.0 L Hct 34.6 L MCV 93 MCH 29.4 MCHC 31.8 L RDW 15.9 H Plt Count 308 MPV 11.9 H Immature Gran % 0.0 Neutrophils % 85.0 Band Neutrophils % 0 Lymphocytes % 5.0 Atypical Lymphs % 0 Monocytes % 7.0 Eosinophils % 1.0 Basophils % 0.0 Metamyelocytes % 1 Myelocytes % 1 Nucleated RBC % 0.0 Absolute Neutrophils 13.87 H Absolute Lymphocytes 0.82 L Absolute Monocytes 1.14 H Absolute Eosinophils 0.16 Absolute Basophils 0.00 RBC Morphology See Below Polychromasia Present Poikilocytosis 2+ Anisocytosis 1+ VBG pH 7.39 VBG pCO2 56 H VBG pO2 29 VBG HCO3 34 H VBG Total CO2 32 H VBG O2 Saturation 44 VBG Base Excess 9 H VBG Lactate 2.4 H* Sodium 141 Potassium 3.6 Chloride 102 Carbon Dioxide 32.6 H Anion Gap 6.4 BUN 24 H Creatinine 1.4 H Est GFR (CKD-EPI 2020) 38.51 Glucose 123 H Calcium 9.1 Magnesium 1.7 L Total Bilirubin 1.7 H AST 26 ALT 21 Alkaline Phosphatase 132 H Creatine Kinase 112 Troponin I 14 15 NT-Pro-B Natriuret Pep 9019 H Total Protein 6.7 Albumin 2.8 L Urine Color Dark Yellow Urine Clarity Clear Urine pH 5.5 Ur Specific [place] 1.025 Urine Protein 30 H Urine Ketones Negative Urine Blood Negative Urine Nitrite Negative Urine Bilirubin Negative Urine Urobilinogen 1.0 H Ur Leukocyte Esterase Negative Urine RBC 0-2 Urine WBC 20-50 H Ur Epithelial Cells Rare Urine Crystals Negative Urine Bacteria Moderate Urine Mucus Negative Ur Culture Indicated? Yes Urine Glucose >=1000 H Last Vital Signs Temp 36.3 C L 07/17/24 13:45 Pulse 129 H 07/17/24 16:20 Resp 23 07/17/24 16:20 BP 124/92 H 07/17/24 16:17 Pulse Ox 100 07/17/24 16:20 Time Spent Time spent with Patient: >75 minutes Time was spent: preparing to see the patient(eg.review tests), obtaining and/or reviewing separately otained hiistory, ordering medications,tests, procedures, referring, communicating with other health senior care provider, indepentently interpreting results, counseling the patient and care coordination
[2024-07-17 18:02] LABS: Troponin I 15 ng/L (<or=51)
[2024-07-17] MEDS: Norepinephrine in D5W 8 MG/250 ML BAG 9.4 MG IV (19:36)
[2024-07-17] MEDS: Furosemide 40 MG/4 ML VIAL IVP (19:51)
--- NOTE | 2024-07-17 19:51 | W.PC.ACHO ---
Registration Status: Primary Language: Preferred Language: ED Information & Data Chief Complaint Fall/Non TraumaCriteria 07/17/24 16:57 Chief Complaint Fall/Non TraumaCriteria 07/17/24 14:09 Triage Note pt on floor for over 24 hour 07/17/24 13:45 , pt slipped out of chair. did not fall hard. did not hit head. 0/10 pain. on blood thinners. pt reports she feels fine. Medical / Surgical History (Last Reviewed 07/17/24 @ 19:40 by Chi Solitario) Class 3 obesity Chronic respiratory failure with hypercapnia CKD (chronic kidney disease) stage 3, GFR 30-59 ml/min Atrial fibrillation Type 2 diabetes mellitus without complications HTN (hypertension) Depressive disorder GERD (gastroesophageal reflux disease) Cardiac pacemaker in situ Loose left total knee arthroplasty Contusion of toe, left Dermal mycosis Thyroid nodule Diabetic peripheral neuropathy Vitamin D deficiency Hyperparathyroidism HLD (hyperlipidemia) Anemia Leukocytosis Cellulitis Stress incontinence Diabetes Anxiety (Last Reviewed 07/17/24 @ 19:40 by Chi Solitario) S/P AVR Hx of CABG Most Recent Vital Signs Temperature 36.3 C L 07/17/24 13:45 Pulse 141 H 07/17/24 17:31 Pulse 115 H 07/17/24 17:31 Respiratory Rate 18 07/17/24 17:31 Blood Pressure 90/60 L 07/17/24 17:38 Blood Pressure Mean 79 07/17/24 17:31 Pulse Oximetry 99 07/17/24 17:31 Oxygen Delivery Method Room Air 07/17/24 13:45 Oxygen Flow Rate 0 07/17/24 13:45 Pain Level 0 07/17/24 13:45 Allergies gabapentin Allergy (Unverified 07/17/24 13:48) Unknown pantoprazole Allergy (Unverified 07/17/24 13:48) Unknown semaglutide (From Ozempic) Allergy (Unverified 07/17/24 13:48) Unknown Active Medications Generic Name Dose Route Start Last Admin Trade Name Freq PRN Reason Stop Dose Admin Norepinephrine Bitartrate 8 mg in 250 mls @ 0 mls/hr 07/17/24 18:30 07/17/24 19:36 IV 9.4 mls/hr INFUSION RONALD 9.4 mls/hr Administration Protocol Per Protocol IV IV Catheter Type [Left Forearm Saline Lock ] IV Catheter Gauge [Left 18 Forearm] Diet Orders Category Date Time Status Heart Healthy Eating [DIET] Nutrition 07/17/24 Dinner Active Diagnostics 07/17/24 07/17/24 07/17/24 Range/Units 17:35 15:55 15:47 WBC (4.4-10.8) 10^3/uL RBC (3.93-5.22) 10^6/uL Hgb (11.2-15.7) g/dL Hct (36.0-46.0) % MCV (80-95) fL MCH (27.0-33.0) pg MCHC (32.0-36.0) % RDW (11.7-14.6) % Plt Count (130-400) 10^3/uL MPV (8.0-11.0) fL Immature Gran % % Neutrophils % % Band Neutrophils % % Lymphocytes % % Atypical Lymphs % % Monocytes % % Eosinophils % % Basophils % % Metamyelocytes % Myelocytes % Nucleated RBC % (0.0-0.3) % Absolute Neutrophils (1.2-6.7) 10^3/uL Absolute Lymphocytes (1.2-3.4) 10^3/uL Absolute Monocytes (0.1-0.8) 10^3/uL Absolute Eosinophils (0.0-0.7) 10^3/uL Absolute Basophils (0.0-0.2) 10^3/uL RBC Morphology Polychromasia Poikilocytosis Anisocytosis VBG pH (7.31-7.41) VBG pCO2 (41-51) mmHg VBG pO2 mmHg VBG HCO3 (23-28) mmol/L VBG Total CO2 (24-29) mmol/L VBG O2 Saturation % VBG Base Excess (-2-3) mmol/L VBG Lactate 2.4 H* (<or=2.0) mmol/L Sodium (136-145) mmol/L Potassium (3.5-5.1) mmol/L Chloride (98-107) mmol/L Carbon Dioxide (21.0-32.0) mmol/L Anion Gap (3-11) mmol/L BUN (7-18) mg/dL Creatinine (0.55-1.02) mg/dL Est GFR (CKD-EPI 2020) (mL/min/1.73m2) Glucose (74-106) mg/dL Calcium (8.5-10.1) mg/dL Magnesium (1.8-2.4) mg/dL Total Bilirubin (0.2-1.0) mg/dL AST (15-37) U/L ALT (14-59) U/L Alkaline Phosphatase (46-116) U/L Creatine Kinase (26-192) U/L Troponin I 15 15 (<or=51) ng/L NT-Pro-B Natriuret Pep 9019 H (<300) pg/mL Total Protein (6.4-8.2) g/dL Albumin (3.4-5.0) g/dL Urine Color Dark Yellow (Yellow) Urine Clarity Clear (Clear) Urine pH 5.5 (5-8) Ur Specific [place] 1.025 (1.005-1.025) Urine Protein 30 H (Neg-Trace) mg/dL Urine Ketones Negative (Negative) mg/dL Urine Blood Negative (Negative) Urine Nitrite Negative (Negative) Urine Bilirubin Negative (Negative) Urine Urobilinogen 1.0 H (Up to 0.2) mg/dL Ur Leukocyte Esterase Negative (Negative) Urine RBC 0-2 (0-2) HPF Urine WBC 20-50 H (0-5) HPF Ur Epithelial Cells Rare (Negative) HPF Urine Crystals Negative (Negative) HPF Urine Bacteria Moderate (Negative) HPF Urine Mucus Negative (Negative) Ur Culture Indicated? Yes Urine Glucose >=1000 H (Negative) mg/dL 07/17/24 Range/Units 14:30 WBC 16.32 H (4.4-10.8) 10^3/uL RBC 3.74 L (3.93-5.22) 10^6/uL Hgb 11.0 L (11.2-15.7) g/dL Hct 34.6 L (36.0-46.0) % MCV 93 (80-95) fL MCH 29.4 (27.0-33.0) pg MCHC 31.8 L (32.0-36.0) % RDW 15.9 H (11.7-14.6) % Plt Count 308 (130-400) 10^3/uL MPV 11.9 H (8.0-11.0) fL Immature Gran % 0.0 % Neutrophils % 85.0 % Band Neutrophils % 0 % Lymphocytes % 5.0 % Atypical Lymphs % 0 % Monocytes % 7.0 % Eosinophils % 1.0 % Basophils % 0.0 % Metamyelocytes % 1 Myelocytes % 1 Nucleated RBC % 0.0 (0.0-0.3) % Absolute Neutrophils 13.87 H (1.2-6.7) 10^3/uL Absolute Lymphocytes 0.82 L (1.2-3.4) 10^3/uL Absolute Monocytes 1.14 H (0.1-0.8) 10^3/uL Absolute Eosinophils 0.16 (0.0-0.7) 10^3/uL Absolute Basophils 0.00 (0.0-0.2) 10^3/uL RBC Morphology See Below Polychromasia Present Poikilocytosis 2+ Anisocytosis 1+ VBG pH 7.39 (7.31-7.41) VBG pCO2 56 H (41-51) mmHg VBG pO2 29 mmHg VBG HCO3 34 H (23-28) mmol/L VBG Total CO2 32 H (24-29) mmol/L VBG O2 Saturation 44 % VBG Base Excess 9 H (-2-3) mmol/L VBG Lactate (<or=2.0) mmol/L Sodium 141 (136-145) mmol/L Potassium 3.6 (3.5-5.1) mmol/L Chloride 102 (98-107) mmol/L Carbon Dioxide 32.6 H (21.0-32.0) mmol/L Anion Gap 6.4 (3-11) mmol/L BUN 24 H (7-18) mg/dL Creatinine 1.4 H (0.55-1.02) mg/dL Est GFR (CKD-EPI 2020) 38.51 (mL/min/1.73m2) Glucose 123 H (74-106) mg/dL Calcium 9.1 (8.5-10.1) mg/dL Magnesium 1.7 L (1.8-2.4) mg/dL Total Bilirubin 1.7 H (0.2-1.0) mg/dL AST 26 (15-37) U/L ALT 21 (14-59) U/L Alkaline Phosphatase 132 H (46-116) U/L Creatine Kinase 112 (26-192) U/L Troponin I 14 (<or=51) ng/L NT-Pro-B Natriuret Pep (<300) pg/mL Total Protein 6.7 (6.4-8.2) g/dL Albumin 2.8 L (3.4-5.0) g/dL Urine Color (Yellow) Urine Clarity (Clear) Urine pH (5-8) Ur Specific [place] (1.005-1.025) Urine Protein (Neg-Trace) mg/dL Urine Ketones (Negative) mg/dL Urine Blood (Negative) Urine Nitrite (Negative) Urine Bilirubin (Negative) Urine Urobilinogen (Up to 0.2) mg/dL Ur Leukocyte Esterase (Negative) Urine RBC (0-2) HPF Urine WBC (0-5) HPF Ur Epithelial Cells (Negative) HPF Urine Crystals (Negative) HPF Urine Bacteria (Negative) HPF Urine Mucus (Negative) Ur Culture Indicated? Urine Glucose (Negative) mg/dL 07/17/24 15:55 Urine Culture - Pending Urine - Reflex from [id number] Documentation Fingerstick Glucose Start: 07/17/24 13:50 Freq: Status: Complete Protocol: Activity Type Activity Date Activity User E-sign Co-sign Detail Recorded Client Recorded Date Recorded By Document 07/17/24 13:49 BKG DAEMON(3) [id number] 07/17/24 13:50 BKG DAEMON(4) Intake and Output - 24 Hour Total 07/17/24 13:33 thru 07/17/24 17:26 Intake Total 250 Balance 250 Weight 111 kg Intake: IV 250 Falls Risk Assessment History of Falls Admit Due to Fall 07/17/24 17:29 Contributing Factors Unstable,Impairments, 07/17/24 17:29 Medications Ambulatory Aids Uses ambulatory device 07/17/24 17:29 Gait Evaluation W/any additional score 07/17/24 17:29 Cognition No cognitive impairment 07/17/24 17:29 Fall Total Score 69 07/17/24 17:29 Level of Risk High Risk 07/17/24 17:29 Problems (Last Reviewed 07/17/24 @ 19:40 by Chi Solitario) Septic shock (Acute) DVT prophylaxis (Acute) Urinary tract infection (Acute) Heart failure with preserved ejection fraction (HFpEF, >= 50%) (Acute) Decubitus ulcer of sacral region (Acute) Acute respiratory failure with hypoxia and hypercapnia (Acute) NATHAN (obstructive sleep apnea) (Chronic) COPD (chronic obstructive pulmonary disease) (Acute) v v v v v v v v v Sending and/or Receiving Nurses: Please use comment section below to note any information pertinent to the patient hand-off not included above. Information / Comments: Report received from: Nely LEONARD
[2024-07-17] MEDS: MAGNESIUM SULFATE 2 GM/50 ML BAG IV_INF (20:56)
[2024-07-17] MEDS: traZODone 50 MG TAB PO (20:56)
[2024-07-17] MEDS: Metoprolol 50 MG TAB 150 MG PO (20:57)
[2024-07-17] MEDS: Apixaban 5 MG TAB PO (20:57)
[2024-07-17] MEDS: Metoprolol 5 MG/5 ML VIAL 2.5 MG IVP (20:58)
[2024-07-17] MEDS: Bimatoprost 0.01% 2.5 ML BTL OP (22:38)
[2024-07-17] MEDS: Insulin Glargine 300 UNITS/3 ML PEN 50 UNITS SC (22:39)
[2024-07-17] MEDS: DULoxetine 30 MG CAP PO (22:39)
[2024-07-17] MEDS: Sucralfate 1 GM TAB PO (22:39)
[2024-07-17] MEDS: Normal Saline Flush 10 ML SYR IVP (23:57)
[2024-07-17] MEDS: Miconazole 2% Topical Powder 85 GM BTL (23:58)
[2024-07-18] VITALS (145 sets, daily range): BP systolic 56–118; BP diastolic 44–96; PULSE 89–148; RESP 14–31; TEMP 36.1–36.5; O2SAT 87–98
[2024-07-18 06:31] LABS: Lactate 1.4 mmol/L (<or=2.0)
[2024-07-18 06:39] LABS: Abs Immature Grans 0.05 10^3/uL (0.0-0.06); Absolute Basophil Count 0.07 10^3/uL (0.0-0.2); Absolute Eosinophil Count 0.65 10^3/uL (0.0-0.7); Absolute Lymphocyte Count 1.42 10^3/uL (1.2-3.4); Absolute Monocyte Count 0.88 10^3/uL (0.1-0.8); Absolute Neutrophil Count 7.79 10^3/uL (1.2-6.7); Basophils % 0.6 %; HCT 32.3 % (36.0-46.0); HGB 10.2 g/dL (11.2-15.7); Immature Grans % 0.5 %; Lymphocytes % 13.1 %; MCH 29.3 pg (27.0-33.0); MCHC 31.6 % (32.0-36.0); MCV 93 fL (80-95); MPV 11.9 fL (8.0-11.0); Monocytes % 8.1 %; Neutrophils % 71.7 %; Nucleated RBC 0.2 % (0.0-0.3); Platelet Count 284 10^3/uL (130-400); RBC 3.48 10^6/uL (3.93-5.22); RDW 16.4 % (11.7-14.6); RDW-SD 55.8 fL; WBC 10.86 10^3/uL (4.4-10.8)
[2024-07-18 06:55] LABS: Anion Gap 6.3 mmol/L (3-11); BUN 23 mg/dL (7-18); CO2 34.7 mmol/L (21.0-32.0); CREATININE 1.4 mg/dL (0.55-1.02); Calcium 8.9 mg/dL (8.5-10.1); Chloride 104 mmol/L (98-107); Estimated GFR 38.51 (mL/min/1.73m2); Glucose 54 mg/dL (74-106); Magnesium 2.1 mg/dL (1.8-2.4); Potassium 3.3 mmol/L (3.5-5.1); Sodium 145 mmol/L (136-145)
[2024-07-18] MEDS: Furosemide 40 MG/4 ML VIAL IVP ×2 (08:06→16:33)
[2024-07-18] MEDS: Multivitamin TAB 1 TAB PO (08:06)
[2024-07-18] MEDS: Atorvastatin 40 MG TAB 80 MG PO (08:07)
[2024-07-18] MEDS: Sucralfate 1 GM TAB PO ×4 (08:07→20:57)
[2024-07-18] MEDS: dilTIAZem CD 120 MG CAPCR 240 MG PO (08:08)
[2024-07-18] MEDS: Apixaban 5 MG TAB PO ×2 (08:09→20:20)
[2024-07-18] MEDS: Famotidine 20 MG TAB 10 MG PO (08:10)
[2024-07-18] MEDS: Normal Saline Flush 10 ML SYR IVP ×4 (08:19→20:53)
[2024-07-18] MEDS: Tiotropium/Olodaterol 10 PUFF INHALER 2 PUFF IH (08:29)
--- NOTE | 2024-07-18 08:56 | PDOC.CMIN ---
Date of service: 07/18/24 Time of Service: 08:56 Care Management Initial Assmt Initial Assessment Reason for Hospitalization: s/p fall, down for 2 days, UTI Functional Status/Living Situation Patient Presentation: Jessa was admitted through the ED yesterday after having a fall at home and being down for 2 days. Her neighbor found her and called EMS. Jessa was found to have a UTI. Jessa was sitting up in the chair when CM met with her today. As per her usual, she was very pleasant with CM. Jessa stated that she was on the floor, yelling for help, and no one came for a long time. She could not tell CM just how long she was down. She stated that she was very scared during this time. CM offered active listening and comfort to Jessa. Jessa stated that she doesn't feel that she can live safely at home any more. She wants to live with the seniors. CM discussed this more with Jessa, she feels that she is ready for a longwall shearer operator facility. She stated several times in our conversation that she is ready for this change and would like for CM to send referrals out to SNF. Referrals were sent to the local [facility] facilities, the [facility] and the [facility]. Jessa's granddaughter, Nguyen, was notified of this. She is Jessa's only HIPAA contact. Nguyen was pleased to hear of this plan, as she has worried about Jessa for some time. Nguyen will inform the rest of Jessa's family of this plan. Jessa stated that she needs her hearing aids and phone demand equipment repairer. Nguyen will hopefully be able to bring those items this weekend. CM will call the [facility] tomorrow to update them ([facility] closed at noon today). Town of Residence: [facility] Resides with: Alone Significant Other/Family: Local (granddaughter, Nguyen, lives in same building, but is not really helpful to Jessa) Caregiver/Guardian: Jessa has caregivers through [facility] twice a week and receives MOW. She has a CM through [facility], receives RN, PT, OT, and also receives support from [facility]. Natural Supports: Jessa speaks with her son, Chi, almost daily. Chi lives in [place]. 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) Instrumental Activities of Daily Living (ADLs): Requires support with Dishes/food prep, Groceries, Laundry and Transportation Medications Medication Management: Issues/Barriers with Obtaining (has a history of running out of medications - last admitted for this reason) Physical Functioning/Mobility Assistive Device: motorized wheel chair/scooter Advance Directives Advance Directives: Do you have an Advance Directive: N 04/10/24 23:24 AD On File at [facility]: N 03/21/24 10:05 Date Asked 07/17/24 07/17/24 13:42 AD Date Reviewed 07/08/24 07/08/24 13:21 COLST On File at [facility] COLST Date Scanned Code Status Resuscitation Status DNR/DNI Insurance Coverage/Financial Issues Insurance: HUMANA Medicare Replacement Medicaid of [place] Care Team Visit Care Team Role Provider Type Zeus Hebert Primary Care Provider NON-[facility] STAFF PHYSICIAN InPatient Jayesh Ortega Other Providers OTHER FRANCISCO Millan Emergency Provider PHYSICIANS COMMERCIAL LOAN PROCESSOR Chi Solitario Admit Provider [facility] STAFF PHYSICIAN Attending Provider Discharge Potential Discharge Needs: Consult Consult Services Needed: Palliative, PT Evaluation and PCP F/U Appt Anticipated Barriers to Discharge: None Identified Patient/Family Education Needs: Review discharge instructions, discuss Ask Me Three Transportation: [facility] RCT Transportation: Wheel chair van Plan: Anticpate that Jessa will discharge when medically stable. She will likely be transferred to SNF/LTC, where she will f/u with the facility provider and continue per her plan of care. She will transport via [facility] wheel chair van. CM will continue to follow and update the plan and family as needed. Social Determinants of Health Screening Will the Patient Participate in the Screening?: Unable to obtain [facility] All Active Problems (Updated 07/17/24 @ 20:31 by LUCILA EISENBERG) Septic shock (Acute) Severe sepsis (Acute) DVT prophylaxis (Acute) Urinary tract infection (Acute) Sepsis (Acute) Need for home health care (Acute) ACP (advance care planning) (Acute) Palliative care encounter (Acute) Heart failure with preserved ejection fraction (HFpEF, >= 50%) (Acute) Decubitus ulcer of sacral region (Acute) Acute respiratory failure with hypoxia and hypercapnia (Acute) NATHAN (obstructive sleep apnea) (Chronic) Yeast infection of the skin (Acute) Respiratory failure (Acute) Asthma (Chronic) Elevated BUN (Acute) Atrial fibrillation with rapid ventricular response (Acute) COPD (chronic obstructive pulmonary disease) (Acute) Chronic obstructive pulmonary disease with (acute) exacerbation (Acute) Medical History Class 3 obesity Chronic respiratory failure with hypercapnia CKD (chronic kidney disease) stage 3, GFR 30-59 ml/min Atrial fibrillation Loose left total knee arthroplasty Type 2 diabetes mellitus without complications HTN (hypertension) Contusion of toe, left Dermal mycosis Thyroid nodule Diabetic peripheral neuropathy Vitamin D deficiency Hyperparathyroidism HLD (hyperlipidemia) Anemia Leukocytosis Depressive disorder GERD (gastroesophageal reflux disease) Cellulitis Stress incontinence Diabetes Cardiac pacemaker in situ 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 Gets around with electric wheelchair Readmission Within the Past 30 Days Yes or No: Yes Date of First Admission Date of 1st Admission: 07/08/24 Date of this Admission Date of Admission: 07/17/24 Office Visit Since 1st Admission Have you seen your PCP in the office since discharge?: No Date of PCP Appointment: 07/31/24 Had an appointment Been Scheduled?: Yes Date of Scheduled Appointment: 07/31/24 If the patient had a VNA ordered Did the patient have a VNA order?: Yes Did you call the VNA before you came?: No If the patient had home care service Call them to discuss the patient's admission: planning to call [facility] [employer] ED visits How many ED visits in the past 12 months: 5 Assessment for Readmission Summary of readmission circumstances, based upon interviews: Jessa has good community supports. It appears she is failing at home. Anticipated HH Services Anticipated HH Services at Discharge [facility] (only if not transferred to SNF) Resumption, Aide, OT, PT and RN Following Provider: Anup.
[2024-07-18] MEDS: Nystatin POWDER 15 GM JAR TP ×2 (09:30→20:54)
--- NOTE | 2024-07-18 10:03 | W.PM.PROGNOT ---
Date of Service Date of service: 07/18/24 Time of Service: 10:04 Assessment and Plan Assessment and plan (1) Septic shock: Status: Acute Assessment and plan: Meets criterial for sepsis with elevated HR, WBC, RR, and lactate with UTI source Started with some fluids but BP dropped. POCUS c/w fluid overload with b-lines in lungs bilaterally and full IVC I don't think additional fluids will help. This case appears multifactorial with aspects of septic shock as well as cardiogenic Based on this assessment, stopping fluids and diuresing norepinephrine drip started, she will be admitted to ICU 07/18/24 Wean pressure support as tolerated (2) Urinary tract infection: Status: Acute Assessment and plan: Treating with ceftriaxone. Her last urine culture 06/10 was sensitive to this. 07/18/24 CW rocephin. Urine cultures pending as of 07/18/24 @1000 (3) Heart failure with preserved ejection fraction (HFpEF, >= 50%): Status: Acute Assessment and plan: Initial ED assessment was that she was mildly dry, gave gentle fluids, but now POCUS c/w fluid overload. LVEF grossly down, possible a/w sepsis. Last echo 04/2024 showed preserved LVEF EKG and troponins not c/w acute ischemia (4) Decubitus ulcer of sacral region: Status: Acute Assessment and plan: Continue to monitor, wound care. (5) COPD (chronic obstructive pulmonary disease): Status: Acute Assessment and plan: No clear exacerbation, neb didn't help much in ED, continue outpatient inhalers (6) Acute respiratory failure with hypoxia and hypercapnia: Status: Acute Assessment and plan: VGB c/w her chronic hypercarbia, but some increase hypoxia developing. Diuresing. (7) Atrial fibrillation: Assessment and plan: HR mildly elevated in setting of sepsis. Continue outpatient rate control with metoprolol and diltiazem, BPs have stayed stable. Continue apixaban (8) Type 2 diabetes mellitus without complications: Assessment and plan: Adequately controlled with A1c 7.4 in May, at goal for age/comorbidities. Continue basal/bolus insulin. Holding empagliflozin with acute UTI (9) NATHAN (obstructive sleep apnea): Status: Chronic Assessment and plan: not on CPAP chronically, contributing to low oxygen at night. (10) CKD (chronic kidney disease) stage 3, GFR 30-59 ml/min: Assessment and plan: At recent baseline 07/18/24 Most recent BUN/Cr 23/1.4 respectively (11) Anemia: Assessment and plan: mild, similar to previous (12) Hypomagnesemia: Status: Resolved Assessment and plan: replace and follow. With loop diuretic use should supplement chronically (13) Class 3 obesity: Assessment and plan: she may benefit from GLP-1 therapy, but did not tolerate semaglutide, f/u with pcp (14) DVT prophylaxis: Status: Acute Assessment and plan: on apixaban Subjective Subjective Interval history since last seen: Pt seen and examined in her room this am. Pt was without significant complaint. POC d/w PT as well as with bedside nurse during ICU huddle Exam Narrative Exam Narrative: GEN: Alert and oriented x 4, pleasant and cooperative, gives clear answers to direct questions, but somewhat vague history with poor short term memory. Sitting in chair HEENT: Head atraumatic. Conjunctiva clear, no icterus. PEERL, EOMI. no rhinorrhea, NC in place, MMM, OP benign. Neck is supple with no masses or lymphadenopathy, trachea midline. LUNGS: Basilar rales, otherwise clear bilaterally, speaking in short sentences, not in respiratory distress at rest CV: irregular, rate around 110, with no murmurs, gallops, or rubs. I could not appreciate elevated JVP but limited by habitus ABD: active bowel sounds, soft, and nondistended. Mild tenderness with deep RUQ tenderness, neg murphies. No masses. EXT: no cyanosis, clubbing. 2+ pitting edema bilaterally. warm, not tender MSK: No joint redness. Bruising below left knee. Pain with flexion past 30 degrees NEURO: CN 2-12 grossly intact. Normal movement of 4 extremities. Normal speech and coordination. No tremor SKIN: No rashes. pressure ulceration into dermis on buttock left of sacrum, dry, not draining, no redness around PSYCH: normal mood and affect, nl thought process Objective Last Vital Signs Temp 36.5 C 07/18/24 04:00 Pulse 106 H 07/18/24 08:18 Resp 17 07/18/24 08:20 BP 100/56 L 07/18/24 08:18 Pulse Ox 94 07/18/24 09:13 Laboratory Results - last 24 hr 07/17/24 07/17/24 07/17/24 14:30 15:47 15:55 WBC 16.32 H RBC 3.74 L Hgb 11.0 L Hct 34.6 L MCV 93 MCH 29.4 MCHC 31.8 L RDW 15.9 H Plt Count 308 MPV 11.9 H Immature Gran % 0.0 Neutrophils % 85.0 Band Neutrophils % 0 Lymphocytes % 5.0 Atypical Lymphs % 0 Monocytes % 7.0 Eosinophils % 1.0 Basophils % 0.0 Metamyelocytes % 1 Myelocytes % 1 Nucleated RBC % 0.0 Absolute Neutrophils 13.87 H Absolute Lymphocytes 0.82 L Absolute Monocytes 1.14 H Absolute Eosinophils 0.16 Absolute Basophils 0.00 RBC Morphology See Below Polychromasia Present Poikilocytosis 2+ Anisocytosis 1+ VBG pH 7.39 VBG pCO2 56 H VBG pO2 29 VBG HCO3 34 H VBG Total CO2 32 H VBG O2 Saturation 44 VBG Base Excess 9 H VBG Lactate 2.4 H* Sodium 141 Potassium 3.6 Chloride 102 Carbon Dioxide 32.6 H Anion Gap 6.4 BUN 24 H Creatinine 1.4 H Est GFR (CKD-EPI 2020) 38.51 Glucose 123 H Calcium 9.1 Magnesium 1.7 L Total Bilirubin 1.7 H AST 26 ALT 21 Alkaline Phosphatase 132 H Creatine Kinase 112 Troponin I 14 15 NT-Pro-B Natriuret Pep 9019 H Total Protein 6.7 Albumin 2.8 L Urine Color Dark Yellow Urine Clarity Clear Urine pH 5.5 Ur Specific [place] 1.025 Urine Protein 30 H Urine Ketones Negative Urine Blood Negative Urine Nitrite Negative Urine Bilirubin Negative Urine Urobilinogen 1.0 H Ur Leukocyte Esterase Negative Urine RBC 0-2 Urine WBC 20-50 H Ur Epithelial Cells Rare Urine Crystals Negative Urine Bacteria Moderate Urine Mucus Negative Ur Culture Indicated? Yes Urine Glucose >=1000 H 07/17/24 07/18/24 17:35 06:25 WBC 10.86 H RBC 3.48 L Hgb 10.2 L Hct 32.3 L MCV 93 MCH 29.3 MCHC 31.6 L RDW 16.4 H Plt Count 284 MPV 11.9 H Immature Gran % 0.5 Neutrophils % 71.7 Band Neutrophils % Lymphocytes % 13.1 Atypical Lymphs % Monocytes % 8.1 Eosinophils % 6.0 Basophils % 0.6 Metamyelocytes % Myelocytes % Nucleated RBC % 0.2 Absolute Neutrophils 7.79 H Absolute Lymphocytes 1.42 Absolute Monocytes 0.88 H Absolute Eosinophils 0.65 Absolute Basophils 0.07 RBC Morphology Polychromasia Poikilocytosis Anisocytosis VBG pH VBG pCO2 VBG pO2 VBG HCO3 VBG Total CO2 VBG O2 Saturation VBG Base Excess VBG Lactate 1.4 Sodium 145 Potassium 3.3 L Chloride 104 Carbon Dioxide 34.7 H Anion Gap 6.3 BUN 23 H Creatinine 1.4 H Est GFR (CKD-EPI 2020) 38.51 Glucose 54 L Calcium 8.9 Magnesium 2.1 Total Bilirubin AST ALT Alkaline Phosphatase Creatine Kinase Troponin I 15 NT-Pro-B Natriuret Pep Total Protein Albumin Urine Color Urine Clarity Urine pH Ur Specific [place] Urine Protein Urine Ketones Urine Blood Urine Nitrite Urine Bilirubin Urine Urobilinogen Ur Leukocyte Esterase Urine RBC Urine WBC Ur Epithelial Cells Urine Crystals Urine Bacteria Urine Mucus Ur Culture Indicated? Urine Glucose Time Spent with Patient Time Spent with Patient: 25-34 minutes Time was spent: preparing to see the patient(eg.review tests), obtaining and/or reviewing separately [facility] hi[facility], ordering medications,tests, procedures, referring, communicating with other health daycare director, indepentently interpreting results, counseling the patient and care coordination
--- NOTE | 2024-07-18 13:08 | PHA.REVIEW2 ---
Pharmacy Admission Review Admission Clinical Review Admission Pharmacy Review: Septic shock (Acute) DVT prophylaxis (Acute) Urinary tract infection (Acute) Heart failure with preserved ejection fraction (HFpEF, >= 50%) (Acute) Decubitus ulcer of sacral region (Acute) Acute respiratory failure with hypoxia and hypercapnia (Acute) COPD (chronic obstructive pulmonary disease) (Acute) gabapentin Allergy (Unverified 07/17/24 13:48) Unknown pantoprazole Allergy (Unverified 07/17/24 13:48) Unknown semaglutide (From Ozempic) Allergy (Unverified 07/17/24 13:48) Unknown Resuscitation Status DNR/DNI Height 5 ft 3 in Weight 107.1 kg Comments Comments/Follow Ups: Watch for addition of any QTc prolonging meds Pharmacy Admission Review Renal Dosing Renal Dosing: BUN 23 mg/dL (7-18) H 07/18/24 06:25 Creatinine 1.4 mg/dL (0.55-1.02) H 07/18/24 06:25 Medications needing adjustments: Intervened (CrCl 38.76 mL/min, BUN decreased from 24) List of meds needing interventions: Changed famotidine dose from 20mg daily to 10mg daily Anticoagulation Anticoagulation: Hgb 10.2 g/dL (11.2-15.7) L 07/18/24 06:25 Hct 32.3 % (36.0-46.0) L 07/18/24 06:25 Plt Count 284 10^3/uL (130-400) 07/18/24 06:25 Creatinine 1.4 mg/dL (0.55-1.02) H 07/18/24 06:25 DVT Prophylaxis: Reviewed (Hgb decreased from 11) Medications: Apixaban (5mg PO BID) Relevant Labs Relevant Labs: Sodium 145 mmol/L (136-145) 07/18/24 06:25 Potassium 3.3 mmol/L (3.5-5.1) L 07/18/24 06:25 Chloride 104 mmol/L (98-107) 07/18/24 06:25 Magnesium 2.1 mg/dL (1.8-2.4) 07/18/24 06:25 Electrolytes, C-Reactive P, ESR: Reviewed (K 3.3 - order added for 20mEq PO BID) DM Control DM Control: Glucose 54 mg/dL (74-106) L 07/18/24 06:25 Finger Stick Blood Glucose 139 1138 Finger Stick Blood Glucose 139 1138 Finger Stick Blood Glucose 72 0748 Finger Stick Blood Glucose 72 0748 Finger Stick Blood Glucose 53 0714 Finger Stick Blood Glucose 53 0714 DM Control: Intervened Insulin Dosing, Diabetic Medication: Has orders for SS insulin, 5 units meal time insulin and glargine 50 units every evening. I changed meal time insulin from TID to 0800,1200,1700 per pharmacy protocol. Has order for Jardiance that is currently on hold due to active UTI. Cardiac Review Cardiac Review: Troponin I 15 ng/L (<or=51) 07/17/24 17:35 NT-Pro-B Natriuret Pep 9019 pg/mL (<300) H 07/17/24 15:47 Blood Pressure : Heart Rate 83/67 : 113 1314 Blood Pressure : Heart Rate 100/56 : 106 0818 Blood Pressure : Heart Rate 93/64 : 117 0814 Blood Pressure : Heart Rate 100/63 : 121 0700 Blood Pressure : Heart Rate 97/72 : 128 0601 Blood Pressure : Heart Rate 97/63 : 100 0500 Blood Pressure : Heart Rate 105/67 : 131 0401 Blood Pressure : Heart Rate 102/69 : 119 0300 Blood Pressure : Heart Rate 118/54 : 102 0201 BP, HR, EF%: Reviewed (oxygen flow rate 1) List meds needing interventions: Has order for diltiazem CD 240mg daily, furosemide 40mg IVP BID and metoprolol 150mg BID. Patient had order for norepinephrine infusion which was paused last night at 2230, discontinued order (verified with provider first). QTc Review QTc: Reviewed (513 from 07/08/24) IV to PO Switch IV Medications: Reviewed (ceftriaxone and furosemide) Home Meds Home Med List reviewed: Intervened Relevent Home Meds Not ordered & why?: Called nurse to ask if patient uses Ozempic at home (recently filled but not on home med list). Per nurse as far as patient is aware they are not using it. Also verified that patient does use their meal time insulin at home. Hasn't been filled in quite a while but per patient she has a lot of overstock at home. Current Meds Current Medication Order Review: Intervened Comments: Changed sucralfate order from QID to AC+HS per pharmacy protocol Changed IV ED access order Pharmacy Antibiotic Review Relevant Labs: WBC 10.86 10^3/uL (4.4-10.8) H 07/18/24 06:25 Temperature 36.2 C Temperature 36.5 C Microbiology 07/17/24 15:55 Urine Culture - Preliminary Urine - Reflex from Ua Enterococcus species Pharmacy Antibiotic Activity: C/S review and Reviewed, no change Comments: Patient is on ceftriaxone, day 1, for sepsis/UTI. WBC decreased from 16.32. Culture sensitivities pending. Comments Comments/Follow Ups: Watch for addition of any QTc prolonging meds
--- NOTE | 2024-07-18 15:23 | IN_ITS ---
PT Notes Visit Reasons: UTI, Sepsis Inpatient Physical Therapy Evaluation Date: 07/18/2024 Referring Doctor: Dr Solitario PT Orders: PT CONSULT: Precautions: Telemetry,Oxygen to keep sats 88-92%, pacemaker, Johnson, Patient Profile/Admitting Diagnosis: Jessa is a 78-year-old female presenting to the ED from home after sliding off her lift chair. She reports she was on the floor for 2 days yelling for help . a [place] heard and called EMS. Pt dx of UTi, Sepsis, then developed fluid overload, Acute respiratory failure with hypoxia and hypercapnia requiring supplemental oxygen. She was admitted to ICU for medical management and monitoring. Patient has a decubitus ulcer with dr gandara in place. PMHX: Knee pain, left (Acute) Heart failure with preserved ejection fraction (HFpEF, >= 50%) (Acute) Acute exacerbation of CHF (congestive heart failure) (Acute) Decubitus ulcer of sacral region (Acute) Acute respiratory failure with hypoxia and hypercapnia (Acute) NATHAN (obstructive sleep apnea) (Chronic) Yeast infection of the skin (Acute) Acute hypoxic respiratory failure (Acute) Respiratory failure (Acute) Asthma (Chronic) Elevated BUN (Acute) Atrial fibrillation with rapid ventricular response (Acute) COPD (chronic obstructive pulmonary disease) (Acute) Chronic obstructive pulmonary disease with (acute) exacerbation (Acute) Medical History CKD (chronic kidney disease) stage 3, GFR 30-59 ml/min Atrial fibrillation Loose left total knee arthroplasty Type 2 diabetes mellitus without complications HTN (hypertension) Contusion of toe, left Dermal mycosis Thyroid nodule Diabetic peripheral neuropathy Vitamin D deficiency Hyperparathyroidism HLD (hyperlipidemia) Obesity Anemia Leukocytosis Depressive disorder GERD (gastroesophageal reflux disease) Cellulitis Stress incontinence Diabetes Cardiac pacemaker in situ placed 04/22/2022 in [place]. [employer] Lottie ZURITA [id number] SERIAL # [id number] RH ENTERED 04/17/24Anxiety Surgical History S/P AVR replaced with bovine valveHx of CABG Social History/Home Situation: Patient resides alone in an apartment. She utilizes a scooter/motorized wheelchair as primary mode of locomotion. She receives home health aide visiting nurse and occupational therapy. Patient also receives Meals on Wheels Pt is able to walk 8-10 feet with FWW with SBA then is limited by pain in her left knee. Equipment Owned/DME: Motorized wheelchair, grab bars in bathroom, FWW Subjective: Patient reports she sleeps in a recliner. She reports she is able to change the dressing on her sacral ulcer. She states she perform step turn transfers from recliner to power chair then transfers with grab bar on and off the toilet. She states she bathes when the aide comes in twice a week. Jessa states she wants to go to a facility when she does not need to be in the hospital anymore. She reports too many things have happened at home. Objective: [] General Observation: elderly female sitting upright in bed finishing her breakfast, bright red hematuria noted in Johnson Mental Status: Alert Ox 4, Pain: left knee 2/10 with prolonged standing and with palpation Vital Signs: oxygen at rest 93% 1L/min via NC, 89% with standing on 1L/min via NC ROM: Right Upper Extremity: WFL Left Upper Extremity:WFL Right Lower Extremity:WFL hip and knee limited by soft tissue approximation Left Lower Extremity: WFL hip and knee limited by soft tissue approximation Strength: Right Upper Extremity: 4/5 grossly Left Upper Extremity: 4/5 grossly Right Lower Extremity: hip 3-/5, knee extension 3+/5, flexion 3-/5 ankle 3/5 Left Lower Extremity: hip 3-/5, knee extension 3/5, flexion 3-/5, ankle 3/5 Sensation: intact Bed Mobility/Transfers: semireclined to sit at edge of bed mod A (patient sleeps in recliner at home) sit to/from stand : mod A from 18 height 3/4 stand step turn without bar toward right with min A Gait: Pt able to march in place 3 reps with LLE 1 rep with RLE d/t pain in LLE with WB Balance: [] Static Sitting: Normal Dynamic Sitting: good- Static Standing: Fair+ with BUE support Dynamic Standing: Fair- Special Tests: Mobility Limitations Standardized Measure [facility] AM-PAC 6 clicks Basic Mobility Inpatient Short Form: Raw Score: 9 CMS Score: 81.38% Informed Consent/Education: Patient instructed in purpose of PT consult and plan of care. Assessment: Patient is a 78 year old female referred to physical therapy services with the diagnosis of UTI, Sepsis hypercapnea . Patient currently needing supplemental oxygen which may be difficult for her to manage within her home utilizing power wheelchair. Uncertain of patient's ability to manage oxygen tubing safely with use of power chair as well as her ability to transfer tubing from a concentrator to a portable tank. Patient remains a high fall risk. Patient requiring increased assistance to manage within the community. Pt. is not safe to perform transfers independently. At home, Patient sleeps in recliner due to inability to tolerate laying flat in her bed which resulted in shortness of breath/dyspnea. She is able to tolerate hospital bed for sleep at night but prefers to be out of bed to a chair during day hours. Patient presents with clinical signs and symptoms consistent with admitting diagnosis, as demonstrated by the following impairment level findings: 1. impaired strength BLE / BUE Major muscle groups 2. Impaired sitting/standing balance 3. impaired activity tolerance 4. Limited ROM B hips and knees, B shoulders 5. pain left knee 6. dependent on supplemental oxygen 7. Impaired skin integrity buttocks. Impairments are contributing to the following functional limitations: 1.AMPAC score. 2. decline in bed mobility skills 3. decline in transfer skills 4. Increase time to complete ADL/ mobility tasks 5. Increase risk for falls Patient is assessed as a Moderate 28177 complexity based on the following: History: 78-year-old female with past medical history as indicated above Examination: Demonstrates impairments in strength balance and mobility with underlying impairments and functional limitations as outlined above as well as AM-PAC score of 68.66% Presentation: Evolving Decision Making: Moderate Goals: X 1 week 1. CGA transfers step turn without assistive device to simulate transfers recliner to/from her power chair 2. CGA sit to stand at grab bar or FWW 3. CGA step turn with grab bar or FWW to simulate transfers power chair to/ from commode Plan of Care/Treatment Plan: 1-2x/day, 7 days/week x 1 week. Plan of care has been reviewed with the BUFFING MACHINE TENDER providing the service under Physical Therapy direction. Initiate Physical Therapy intervention for strengthening, bed mobility, transfers, gait, stairs, balance training, use of assistive device. DISCHARGE RECOMMENDATIONS: [] [] Home with no services [] [] Home with services PT. [] Home with outpatient PT [] [X] SNF for continued rehabilitation to determine ability to return to home. [] Protective Officer Care [] [] SNF versus LTC based on ability to progress and TREATMENT CODE/TIME: 05620/ 2:45pm-3:10pm
[2024-07-18] MEDS: cefTRIAXone 1 GM/50 ML BAG IVPB (16:32)
[2024-07-18] MEDS: Insulin Aspart 300 UNITS/3 ML PEN SC ×2 (20:18)
[2024-07-18] MEDS: traZODone 50 MG TAB PO (20:20)
[2024-07-18] MEDS: DULoxetine 30 MG CAP PO (20:20)
[2024-07-18] MEDS: Potassium Chloride 20 MEQ TABCR PO (20:21)
[2024-07-18] MEDS: Bimatoprost 0.01% 2.5 ML BTL OP (20:21)
[2024-07-18] MEDS: Insulin Glargine 300 UNITS/3 ML PEN 50 UNITS SC (20:54)
[2024-07-19] VITALS (14 sets, daily range): BP systolic 90–131; BP diastolic 47–106; PULSE 60–144; RESP 15–24; TEMP 36.5; O2SAT 90–98
[2024-07-19 06:39] LABS: Abs Immature Grans 0.06 10^3/uL (0.0-0.06); Absolute Basophil Count 0.06 10^3/uL (0.0-0.2); Absolute Eosinophil Count 0.76 10^3/uL (0.0-0.7); Absolute Lymphocyte Count 1.29 10^3/uL (1.2-3.4); Absolute Monocyte Count 0.85 10^3/uL (0.1-0.8); Absolute Neutrophil Count 6.39 10^3/uL (1.2-6.7); Basophils % 0.6 %; Eosinophils % 8.1 %; HCT 30.8 % (36.0-46.0); HGB 9.7 g/dL (11.2-15.7); Immature Grans % 0.6 %; Lymphocytes % 13.7 %; MCH 29.2 pg (27.0-33.0); MCHC 31.5 % (32.0-36.0); MCV 93 fL (80-95); MPV 12.1 fL (8.0-11.0); Nucleated RBC 0.3 % (0.0-0.3); Platelet Count 276 10^3/uL (130-400); RBC 3.32 10^6/uL (3.93-5.22); RDW 16.2 % (11.7-14.6); RDW-SD 55.2 fL; WBC 9.41 10^3/uL (4.4-10.8)
[2024-07-19 07:25] LABS: ALT 20 U/L (14-59); AST 18 U/L (15-37); Albumin 2.5 g/dL (3.4-5.0); Alkaline Phosphatase 119 U/L (46-116); BUN 26 mg/dL (7-18); Bilirubin, Total 0.7 mg/dL (0.2-1.0); CREATININE 1.5 mg/dL (0.55-1.02); Calcium 8.6 mg/dL (8.5-10.1); Chloride 102 mmol/L (98-107); Estimated GFR 35.45 (mL/min/1.73m2); Glucose 112 mg/dL (74-106); Potassium 3.2 mmol/L (3.5-5.1); Sodium 142 mmol/L (136-145); Total Protein 6.1 g/dL (6.4-8.2)
--- NOTE | 2024-07-19 08:12 | PDOC.CMPRO ---
Date of service: 07/19/24 Time of Service: 08:13 Care Management Progress Note Progress Note Text Progress Note Text: Jessa was sitting up in the bed, visiting with her granddaughter and her great grandchildren. She was very happy to have her family around and was noted to be smiling the whole time. CM spoke with Jessa and her family regarding the SNF referrals that were sent. [facility] Family is hoping for someplace closer, and since Jessa is still in ICU, we will hold off on accepting. [facility] is currently reviewing her clinicals. Family is asking for help transporting Jessa's wheel chair to the facility. CM will seek out options for this. Discharge Potential Discharge Needs: Other (f/u with SNF provider) Anticipated Barriers to Discharge: None Identified Patient/Family Education Needs: Review discharge instructions, discuss Ask Me Three Transportation: RCT RCT Transportation: Wheel chair van Plan: Anticipate that Jessa will transfer to SNF once medically stable. She will f/u with the facility provider and continue per her plan of care. CM will continue to follow closely and update the family as needed. Social Determinants of Health Screening Will the Patient Participate in the Screening?: Unable to obtain
[2024-07-19] MEDS: Tiotropium/Olodaterol 10 PUFF INHALER 2 PUFF IH (08:26)
--- NOTE | 2024-07-19 09:19 | PT.INTREAT ---
PT Notes Visit Reasons: UTI, Sepsis Inpatient Physical Therapy Treatment Note [facility] Date:07/19/2024 PRECAUTIONS:IV access LUE Oxygen to keep sate 88-92% ( currently 1L/Min via NC), telemetry SUBJECTIVE: Pt reports she slept well. Pt reports her wheelchair at home has the green oxygen tubing wrapped around the wheels. OBJECTIVE: reclined in chair oxygen in place Pain: denied VITALS: monitored via telemetry throughout ? Therapeutic Activities (19478): Direct one-on-one instruction in dynamic activities to improve functional performance. ?? Provided skilled cues and instruction on performance and technique throughout. ? TRANSFERS? Sit-stand: CGA x 3 trials?cues to push up from chair ?19 seat height ? Stand-sit: CGA x 3 trials cue to reach back ? Chair-commode: min A step turn with FWW x 1?trial ? Commode-Chair: min A step turn with FWW x 1trial exercise: 2 sets 5 reps for pacing BLE reclined in chair: glute sets, quad sets, ankle pumps, heel slides seated: LAQ, marching ? ASSESSMENT:? Pt nikhil. session well. Able and willing to participate in repetition of movement. Pt pSO2 remained within range 88-92% on 1L/min via NC. Pt required increased assist with step turn to the left d/t left knee discomfort as compared to turn to the right PLAN: 1-2x/day, 7 days/week x 1 week. Plan of care has been reviewed with the GRANULATING BLENDER providing the service under Physical Therapy direction. Initiate Physical Therapy intervention for strengthening, bed mobility, transfers, gait, balance training, use of assistive device. TREATMENT CODE/TIME: 92844, 63908/ [id number] DISCHARGE RECOMMENDATION: SNF
[2024-07-19] MEDS: Sucralfate 1 GM TAB PO ×4 (09:47→21:36)
[2024-07-19] MEDS: Apixaban 5 MG TAB PO ×2 (09:47→20:54)
[2024-07-19] MEDS: Famotidine 20 MG TAB 10 MG PO (09:47)
[2024-07-19] MEDS: Potassium Chloride 20 MEQ TABCR PO ×2 (09:47→20:54)
[2024-07-19] MEDS: Multivitamin TAB 1 TAB PO (09:47)
[2024-07-19] MEDS: Atorvastatin 40 MG TAB 80 MG PO (09:47)
[2024-07-19] MEDS: Polyethylene Glycol 3350 17 GM PACKET PO ×2 (09:48→20:53)
[2024-07-19] MEDS: Normal Saline Flush 10 ML SYR IVP ×2 (09:48→20:52)
[2024-07-19] MEDS: CIPROFLOXACIN 400 MG/200 ML BAG 200 MG IVPB ×2 (09:48→20:55)
[2024-07-19] MEDS: dilTIAZem CD 120 MG CAPCR 240 MG PO (09:48)
[2024-07-19] MEDS: Nystatin POWDER 15 GM JAR TP ×2 (09:49→20:54)
--- NOTE | 2024-07-19 11:53 | W.PALLCONSUL ---
Date of service: 07/19/24 Time of Service: 11:53 History of Present Illness Narrative: Jessa is a 78 year old female currently admitted to the ICU for sepsis due to urinary source. She also has PNA and fell prior to admission. Her past medical Hx is significant for CHF, COPD, a-fib, DM2, NATHAN, CKD, obesity, sacral ulcer. She fowler been living alone in an apartment in [facility]. She relocated here from [place] where she was living near her son. Jessa established care with Palliative during her last hospitalization. She was seen today in her ICU room at [facility]. Her granddaughters, Nguyen and Brianda were present for the visit. This is her 5th hospitalization already this year (over the last 3 months). She does not feel it is safe to remain in her apartment alone. She has agreed to SNF placement. She is hoping to be in [facility] so her family can visit. Discussed whether she would want to be transferred back to the hospital once she is at SNF and she does want transfer. CODE status reviewed. She is a DNR/DNI. She is has a COLST on file. She reports that her son, Chi is her HCA. She is not sure if she chose an alternate agent. We were unable to find HCA paperwork with her PCP office so we completed a new form. She chose her son, Chi Adame and Zainab Adame ([id number]) to be her first agents then her granddaughter, Nguyen Prepost as an alternate agent. HCA forms completed. Jessa reports that she fell at home while trying to get into her electric scooter. She is hoping to get a new, four roll calender operator scooter. She also needs hearing aids. They will discuss with E COMMERCE ARCHITECT at the SNF. Assessment and Plan Assessment and plan (1) Septic shock: Status: Acute Assessment and plan: Appears multifactorial with aspects of septic shock as well as cardiogenic. (2) Urinary tract infection: Status: Acute Assessment and plan: Abx changed to Cipro based on Cx. PEC #: [id number] [place]: 07/17/24-2993 STATUS: COMP REQ #: [id number] RECD: 07/17/24-[address]: DEIRDRE SINGH, LANA YU DR: Zeus Hebert FAX #: SOURCE:Urine SPECIMEN DESCRIPTION:Reflex from UA Procedure Result Verified Urine Culture Final 07/19/24-0810 Day 1 Result ISOLATES BELOW ISOLATE 1 COLONY COUNT >100,000 COLONIES/ML ISOLATE 1 APPEARANCE Gram Positive Melissa ISOLATE 1 ACTION ID AND SUSCEPTIBILITY TO FOLLOW Day 2 Result ISOLATES BELOW ISOLATE 1 COLONY COUNT >100,000 COLONIES/ML ISOLATE 1 APPEARANCE Gram Positive Melissa Organism 1 Enterococcus faecalis COLONY COUNT >100,000 COLONIES/ML Ente faeca Result Ampicillin S Ciprofloxacin S Daptomycin S Vancomycin S (3) Heart failure with preserved ejection fraction (HFpEF, >= 50%): Status: Acute (4) Decubitus ulcer of sacral region: Status: Acute Assessment and plan: Continue to monitor, wound care. (5) COPD (chronic obstructive pulmonary disease): Status: Acute Assessment and plan: No clear exacerbation. (6) Acute respiratory failure with hypoxia and hypercapnia: Status: Acute (7) Atrial fibrillation: (8) Type 2 diabetes mellitus without complications: (9) NATHAN (obstructive sleep apnea): Status: Chronic (10) CKD (chronic kidney disease) stage 3, GFR 30-59 ml/min: (11) Anemia: (12) Hypomagnesemia: Status: Resolved (13) Class 3 obesity: (14) Palliative care encounter: Status: Acute (15) ACP (advance care planning): Status: Acute Assessment and plan: Jessa is a 78 year old female currently admitted to the ICU for sepsis due to urinary source. She also has PNA and fell prior to admission. Her past medical Hx is significant for CHF, COPD, a-fib, DM2, NATHAN, CKD, obesity, sacral ulcer. She fowler been living alone in an apartment in [facility]. She relocated here from [place] where she was living near her son. Jessa established care with Palliative during her last hospitalization. She was seen today in her ICU room at [facility]. Her granddaughters, Nguyen and Brianda were present for the visit. This is her 5th hospitalization already this year (over the last 3 months). She does not feel it is safe to remain in her apartment alone. She has agreed to SNF placement. She is hoping to be in [facility] so her family can visit. Discussed whether she would want to be transferred back to the hospital once she is at SNF and she does want transfer. CODE status reviewed. She is a DNR/DNI. She is has a COLST on file. She reports that her son, Chi is her HCA. She is not sure if she chose an alternate agent. We were unable to find HCA paperwork with her PCP office so we completed a new form. She chose her son, Chi Adame and Zainab Adame ([email or web address]) to be her first agents then her granddaughter, Nguyen Torresost as an alternate agent. HCA forms completed. Jessa reports that she fell at home while trying to get into her electric scooter. She is hoping to get a new, four roll calender operator scooter. She also needs hearing aids. They will discuss with E COMMERCE ARCHITECT at the SNF. Palliative will f/u at SNF after discharge. Review of Systems Narrative: Feeling better overall. Feels fatigued. She reports she has a pressure ulcer on her sacrum. PFSH All Active Problems Septic shock (Acute) Severe sepsis (Acute) DVT prophylaxis (Acute) Urinary tract infection (Acute) Sepsis (Acute) Need for home health care (Acute) ACP (advance care planning) (Acute) Palliative care encounter (Acute) Heart failure with preserved ejection fraction (HFpEF, >= 50%) (Acute) Decubitus ulcer of sacral region (Acute) Acute respiratory failure with hypoxia and hypercapnia (Acute) NATHAN (obstructive sleep apnea) (Chronic) Yeast infection of the skin (Acute) Respiratory failure (Acute) Asthma (Chronic) Elevated BUN (Acute) Atrial fibrillation with rapid ventricular response (Acute) COPD (chronic obstructive pulmonary disease) (Acute) Chronic obstructive pulmonary disease with (acute) exacerbation (Acute) Medical History Class 3 obesity Chronic respiratory failure with hypercapnia CKD (chronic kidney disease) stage 3, GFR 30-59 ml/min Atrial fibrillation Type 2 diabetes mellitus without complications HTN (hypertension) Depressive disorder GERD (gastroesophageal reflux disease) Cardiac pacemaker in situ placed 04/22/2022 in [place]. Kaylee ZURITA [id number] SERIAL # [id number] RH ENTERED 04/17/24 Loose left total knee arthroplasty Contusion of toe, left Dermal mycosis Thyroid nodule Diabetic peripheral neuropathy Vitamin D deficiency Hyperparathyroidism HLD (hyperlipidemia) Anemia Leukocytosis Cellulitis Stress incontinence Diabetes Anxiety Surgical History S/P AVR replaced with bovine valve Hx of CABG Family History Father Bone cancer Mother Myocardial infarction Brother Myocardial infarction Social History Smoking/Tobacco Use Status: Former Tobacco Use Smoking risk assessment performed?: Yes Alcohol Intake: never Drug use: Never Substance use type: does not use Housing: apartment Do you feel safe at home: Yes Do you feel safe in your relationship?: Yes Additional Social history: Lives in her own apartment [place] [facility]. Gets around with electric wheelchair Exam Narrative Exam Narrative: General: very pleasant, overweight, elderly female, sitting up in the chair in her ICU room. She was sleeping when I arrived but awakened easily to verbal stimuli. She is oriented to person, place and time. HEENT: normocephalic, atraumatic, EOMI, mmm Neck: supple Respiratory: respirations appear even and unlabored at rest, mildly increased WOB with talking. Wearing O2 via nc. Ext: moves extremities freely. Results Last Vital Signs Temp 36.1 C L 07/18/24 20:30 Pulse 87 07/19/24 05:24 Resp 24 07/19/24 05:24 BP 118/50 L 07/19/24 05:24 Pulse Ox 94 07/19/24 08:28 Labs 07/19/24 05:22 07/19/24 05:22 Labs: Laboratory Results - last 24 hr 07/19/24 05:22 WBC 9.41 RBC 3.32 L Hgb 9.7 L Hct 30.8 L MCV 93 MCH 29.2 MCHC 31.5 L RDW 16.2 H Plt Count 276 MPV 12.1 H Immature Gran % 0.6 Neutrophils % 68.0 Lymphocytes % 13.7 Monocytes % 9.0 Eosinophils % 8.1 Basophils % 0.6 Nucleated RBC % 0.3 Absolute Neutrophils 6.39 Absolute Lymphocytes 1.29 Absolute Monocytes 0.85 H Absolute Eosinophils 0.76 H Absolute Basophils 0.06 Sodium 142 Potassium 3.2 L Chloride 102 Carbon Dioxide 36.0 H Anion Gap 4.0 BUN 26 H Creatinine 1.5 H Est GFR (CKD-EPI 2020) 35.45 Glucose 112 H Calcium 8.6 Total Bilirubin 0.7 AST 18 ALT 20 Alkaline Phosphatase 119 H Total Protein 6.1 L Albumin 2.5 L Time Spent Time Spent with Patient Time Spent(min): 64
--- NOTE | 2024-07-19 12:15 | PGE_ITS ---
Date of Service Date of service: 07/19/24 Time of Service: 12:15 Assessment and Plan Assessment and plan (1) Septic shock: Status: Acute Assessment and plan: Meets criterial for sepsis with elevated HR, WBC, RR, and lactate with UTI source Started with some fluids but BP dropped. POCUS c/w fluid overload with b-lines in lungs bilaterally and full IVC I don't think additional fluids will help. This case appears multifactorial with aspects of septic shock as well as cardiogenic Based on this assessment, stopping fluids and diuresing norepinephrine drip started, she will be admitted to ICU 07/18/24 Wean pressure support as tolerated 07/19/24 resolved (2) Urinary tract infection: Status: Acute Assessment and plan: Treating with ceftriaxone. Her last urine culture 06/10 was sensitive to this. 07/18/24 CW rocephin. Urine cultures pending as of 07/18/24 @1000 07/19/24 urine culture results noted. Will change to cipro PEC #: [id number] [place]: 07/17/24 STATUS: COMP REQ #: [id number] RECD: 07/17/24-[address]: DEIRDRE SINGH, LANA YU DR: Zeus Hebert FAX #: SOURCE:Urine SPECIMEN DESCRIPTION:Reflex from UA Procedure Result Verified Urine Culture Final 07/19/24 Day 1 Result ISOLATES BELOW ISOLATE 1 COLONY COUNT >100,000 COLONIES/ML ISOLATE 1 APPEARANCE Gram Positive Melissa ISOLATE 1 ACTION ID AND SUSCEPTIBILITY TO FOLLOW Day 2 Result ISOLATES BELOW ISOLATE 1 COLONY COUNT >100,000 COLONIES/ML ISOLATE 1 APPEARANCE Gram Positive Melissa Organism 1 Enterococcus faecalis COLONY COUNT >100,000 COLONIES/ML Ente fa[employer] Result Ampicillin S Ciprofloxacin S Daptomycin S Vancomycin S (3) Heart failure with preserved ejection fraction (HFpEF, >= 50%): Status: Acute Assessment and plan: Initial ED assessment was that she was mildly dry, gave gentle fluids, but now POCUS c/w fluid overload. LVEF grossly down, possible a/w sepsis. Last echo 04/2024 showed preserved LVEF EKG and troponins not c/w acute ischemia (4) Decubitus ulcer of sacral region: Status: Acute Assessment and plan: Continue to monitor, wound care. (5) COPD (chronic obstructive pulmonary disease): Status: Acute Assessment and plan: No clear exacerbation, neb didn't help much in ED, continue outpatient inhalers (6) Acute respiratory failure with hypoxia and hypercapnia: Status: Acute Assessment and plan: VGB c/w her chronic hypercarbia, but some increase hypoxia developing. Diuresing. (7) Atrial fibrillation: Assessment and plan: HR mildly elevated in setting of sepsis. Continue outpatient rate control with metoprolol and diltiazem, BPs have stayed stable. Continue apixaban (8) Type 2 diabetes mellitus without complications: Assessment and plan: Adequately controlled with A1c 7.4 in May, at goal for age/comorbidities. Continue basal/bolus insulin. Holding empagliflozin with acute UTI (9) NATHAN (obstructive sleep apnea): Status: Chronic Assessment and plan: not on CPAP chronically, contributing to low oxygen at night. (10) CKD (chronic kidney disease) stage 3, GFR 30-59 ml/min: Assessment and plan: At recent baseline 07/18/24 Most recent BUN/Cr 23/1.4 respectively (11) Anemia: Assessment and plan: mild, similar to previous (12) Hypomagnesemia: Status: Resolved Assessment and plan: replace and follow. With loop diuretic use should supplement chronically (13) Class 3 obesity: Assessment and plan: she may benefit from GLP-1 therapy, but did not tolerate semaglutide, f/u with pcp (14) DVT prophylaxis: Status: Acute Assessment and plan: on apixaban Subjective Subjective Interval history since last seen: Pt seen and examined in her room this am. Pt states that she is feeling better. POC d/w pt and bedside nurse during ICU huddle. Pt ok with downgrade to med- surg Exam Narrative Exam Narrative: HEENT: Head atraumatic. Conjunctiva clear, no icterus. PEERL, EOMI. no rhinorrhea, NC in place, MMM, OP benign. Neck is supple with no masses or lymphadenopathy, trachea midline. LUNGS: Basilar rales, otherwise clear bilaterally, speaking in short sentences, not in respiratory distress at rest CV: irregular, rate around 87, with no murmurs, gallops, or rubs. I could not appreciate elevated JVP but limited by habitus ABD: active bowel sounds, soft, and nondistended. Mild tenderness with deep RUQ tenderness, neg murphies. No masses. EXT: no cyanosis, clubbing. 2+ pitting edema bilaterally. warm, not tender MSK: No joint redness. Bruising below left knee. Pain with flexion past 30 degrees NEURO: CN 2-12 grossly intact. Normal movement of 4 extremities. Normal speech and coordination. No tremor SKIN: No rashes. pressure ulceration into dermis on buttock left of sacrum, dry, not draining, no redness around PSYCH: normal mood and affect, nl thought process Objective Last Vital Signs Temp 36.1 C L 07/18/24 20:30 Pulse 87 07/19/24 05:24 Resp 24 07/19/24 05:24 BP 118/50 L 07/19/24 05:24 Pulse Ox 94 07/19/24 08:28 Laboratory Results - last 24 hr 07/19/24 05:22 WBC 9.41 RBC 3.32 L Hgb 9.7 L Hct 30.8 L MCV 93 MCH 29.2 MCHC 31.5 L RDW 16.2 H Plt Count 276 MPV 12.1 H Immature Gran % 0.6 Neutrophils % 68.0 Lymphocytes % 13.7 Monocytes % 9.0 Eosinophils % 8.1 Basophils % 0.6 Nucleated RBC % 0.3 Absolute Neutrophils 6.39 Absolute Lymphocytes 1.29 Absolute Monocytes 0.85 H Absolute Eosinophils 0.76 H Absolute Basophils 0.06 Sodium 142 Potassium 3.2 L Chloride 102 Carbon Dioxide 36.0 H Anion Gap 4.0 BUN 26 H Creatinine 1.5 H Est GFR (CKD-EPI 2020) 35.45 Glucose 112 H Calcium 8.6 Total Bilirubin 0.7 AST 18 ALT 20 Alkaline Phosphatase 119 H Total Protein 6.1 L Albumin 2.5 L Time Spent with Patient Time Spent with Patient: <25 minutes Time was spent: preparing to see the patient(eg.review tests), obtaining and/or reviewing separately otained hiistory, ordering medications,tests, procedures, referring, communicating with other health memory care program resident, indepentently interpreting results, counseling the patient and care coordination
[2024-07-19] MEDS: Insulin Aspart 300 UNITS/3 ML PEN SC ×4 (12:32→17:13)
--- NOTE | 2024-07-19 15:20 | W.PC.ACHO ---
Registration Status: Primary Language: Preferred Language: ED Information & Data Chief Complaint Fall/Non TraumaCriteria 07/17/24 16:57 Chief Complaint Fall/Non TraumaCriteria 07/17/24 14:09 Triage Note pt on floor for over 24 hour 07/17/24 13:45 , pt slipped out of chair. did not fall hard. did not hit head. 0/10 pain. on blood thinners. pt reports she feels fine. Medical / Surgical History (Last Reviewed 07/19/24 @ 14:03 by Marcela Ferris NP) Class 3 obesity Chronic respiratory failure with hypercapnia CKD (chronic kidney disease) stage 3, GFR 30-59 ml/min Atrial fibrillation Type 2 diabetes mellitus without complications HTN (hypertension) Depressive disorder GERD (gastroesophageal reflux disease) Cardiac pacemaker in situ Loose left total knee arthroplasty Contusion of toe, left Dermal mycosis Thyroid nodule Diabetic peripheral neuropathy Vitamin D deficiency Hyperparathyroidism HLD (hyperlipidemia) Anemia Leukocytosis Cellulitis Stress incontinence Diabetes Anxiety (Last Reviewed 07/19/24 @ 14:03 by Marcela Ferris NP) S/P AVR Hx of CABG Most Recent Vital Signs Temperature 36.1 C L 07/18/24 20:30 Temperature Source Temporal Artery Scan 07/18/24 16:10 Pulse 128 H 07/19/24 14:02 Pulse 141 H 07/19/24 14:02 Respiratory Rate 19 07/19/24 14:02 Respiratory Effort Normal 07/17/24 20:40 Respiratory Depth Shallow 07/17/24 20:40 Respiratory Pattern Normal 07/17/24 20:40 Blood Pressure 109/47 L 07/19/24 14:02 Blood Pressure Mean 66 07/19/24 14:02 Blood Pressure Position Supine 07/17/24 20:40 Pulse Oximetry 96 07/19/24 14:02 Oxygen Delivery Method Nasal Cannula 07/19/24 08:28 Oxygen Flow Rate 1 07/19/24 08:28 Fraction of Inspired Oxygen (FIO2) 24 07/18/24 09:13 Pain Level 0 07/18/24 16:10 Comment Left Arm 07/18/24 08:18 Allergies gabapentin Allergy (Unverified 07/17/24 13:48) Unknown pantoprazole Allergy (Unverified 07/17/24 13:48) Unknown semaglutide (From Ozempic) Allergy (Unverified 07/17/24 13:48) Unknown Active Medications Generic Name Dose Route Start Last Admin Trade Name Damion PRN Reason Stop Dose Admin Apixaban 5 mg 07/17/24 20:00 07/19/24 09:47 Apixaban 5 Mg Tab PO 5 mg BID RONALD Administration Atorvastatin Calcium 80 mg 07/18/24 08:30 07/19/24 09:47 Atorvastatin 40 Mg Tab PO 80 mg DAILY RONALD Administration Bimatoprost 0 ml 07/17/24 20:00 07/18/24 20:21 Bimatoprost 0.01% 2.5 Ml Btl OP 2 drp QPM RONALD Administration Diltiazem HCl 240 mg 07/18/24 08:30 07/19/24 09:48 Diltiazem Cd 120 Mg Capcr PO 240 mg DAILY RONALD Administration Duloxetine HCl 30 mg 07/17/24 20:00 07/18/24 20:20 Duloxetine 30 Mg Cap PO 30 mg QPM RONALD Administration Famotidine 10 mg 07/18/24 08:30 07/19/24 09:47 Famotidine 20 Mg Tab PO 10 mg DAILY RONALD Administration Furosemide 40 mg 07/18/24 08:00 07/19/24 09:50 Furosemide 40 Mg/4 Ml Vial IVP Not Given BID@0800,1600 [facility] Ciprofloxacin 400 mg in 200 mls @ 200 mls/hr 07/19/24 08:30 07/19/24 09:48 Cipro I.V. IVPB 200 mls/hr Q12H RONALD Administration Insulin Aspart 5 units 07/18/24 08:00 07/19/24 12:32 Insulin Aspart 300 Units/3 Ml Pen SC 5 units 0800,1200,1700 RONALD Administration Insulin Aspart 0 units 07/18/24 08:00 07/19/24 12:32 Insulin Aspart 300 Units/3 Ml Pen SC 1 units 0800,1200,1700 [facility] Administration Protocol Insulin Glargine 50 units 07/17/24 20:00 07/18/24 20:54 Insulin Glargine 300 Units/3 Ml Pen SC 50 units QPM RONALD Administration Metoprolol Tartrate 150 mg 07/17/24 20:00 07/19/24 09:49 Metoprolol 50 Mg Tab PO Not Given BID RONALD Multivitamins 1 tab 07/18/24 08:30 07/19/24 09:47 Multivitamin Tab PO 1 tab DAILY RONALD Administration Nystatin 0 gm 04/16/25 20:00 07/19/24 09:49 Nystatin Powder 15 Gm Jar TP 1 applic BID RONALD Administration Polyethylene Glycol 17 gm 07/19/24 08:30 07/19/24 09:48 Polyethylene Glycol 3350 17 Gm Packet PO 17 gm BID RONALD Administration Potassium Chloride 20 meq 07/18/24 20:00 07/19/24 09:47 Potassium Chloride 20 Meq Tabcr PO 20 meq BID RONALD Administration Sodium Chloride 0 ml 07/17/24 13:51 07/18/24 16:34 Normal Saline Flush 10 Ml Syr IVP 10 ml PRN PRN Administration Sodium Chloride 0 ml 07/17/24 20:00 07/19/24 09:48 Normal Saline Flush 10 Ml Syr IVP 40 ml BID RONALD Administration Sucralfate 1 gm 07/17/24 22:00 07/19/24 12:33 Sucralfate 1 Gm Tab PO 1 gm AC & HS RONALD Administration Tiotropium [place]/Olodaterol 2 puff 07/18/24 08:30 07/19/24 08:26 Tiotropium/Olodaterol 10 Puff Inhaler IH 2 puff DAILY RONALD Administration Trazodone HCl 50 mg 07/17/24 20:00 07/18/24 20:20 Trazodone 50 Mg Tab PO 50 mg HS RONALD Administration IV IV Catheter Type [Left Forearm Saline Lock ] IV Catheter Gauge [Left 18 Forearm] Diagnostics 07/19/24 Range/Units 05:22 WBC 9.41 (4.4-10.8) 10^3/uL RBC 3.32 L (3.93-5.22) 10^6/uL Hgb 9.7 L (11.2-15.7) g/dL Hct 30.8 L (36.0-46.0) % MCV 93 (80-95) fL MCH 29.2 (27.0-33.0) pg MCHC 31.5 L (32.0-36.0) % RDW 16.2 H (11.7-14.6) % Plt Count 276 (130-400) 10^3/uL MPV 12.1 H (8.0-11.0) fL Immature Gran % 0.6 % Neutrophils % 68.0 % Lymphocytes % 13.7 % Monocytes % 9.0 % Eosinophils % 8.1 % Basophils % 0.6 % Nucleated RBC % 0.3 (0.0-0.3) % Absolute Neutrophils 6.39 (1.2-6.7) 10^3/uL Absolute Lymphocytes 1.29 (1.2-3.4) 10^3/uL Absolute Monocytes 0.85 H (0.1-0.8) 10^3/uL Absolute Eosinophils 0.76 H (0.0-0.7) 10^3/uL Absolute Basophils 0.06 (0.0-0.2) 10^3/uL Sodium 142 (136-145) mmol/L Potassium 3.2 L (3.5-5.1) mmol/L Chloride 102 (98-107) mmol/L Carbon Dioxide 36.0 H (21.0-32.0) mmol/L Anion Gap 4.0 (3-11) mmol/L BUN 26 H (7-18) mg/dL Creatinine 1.5 H (0.55-1.02) mg/dL Est GFR (CKD-EPI 2020) 35.45 (mL/min/1.73m2) Glucose 112 H (74-106) mg/dL Calcium 8.6 (8.5-10.1) mg/dL Total Bilirubin 0.7 (0.2-1.0) mg/dL AST 18 (15-37) U/L ALT 20 (14-59) U/L Alkaline Phosphatase 119 H (46-116) U/L Total Protein 6.1 L (6.4-8.2) g/dL Albumin 2.5 L (3.4-5.0) g/dL 07/17/24 15:55 Urine Culture - Final Urine - Reflex from Ua Enterococcus faecalis [id number] Documentation Fingerstick Glucose Start: 07/17/24 13:50 Freq: Status: Complete Protocol: Activity Type Activity Date Activity User E-sign Co-sign Detail Recorded Client Recorded Date Recorded By Document 07/17/24 13:49 BKG DAEMON(5) NVT-BG05 07/17/24 13:50 BKG DAEMON(6) Fingerstick Glucose Start: 07/17/24 17:06 Freq: .AC Status: Active Protocol: Activity Type Activity Date Activity User E-sign Co-sign Detail Recorded Client Recorded Date Recorded By Document 07/19/24 12:26 BKG DAEMON(7) NVT-BG05 07/19/24 12:27 BKG DAEMON(8) Intake and Output - 24 Hour Total 07/17/24 13:33 thru 07/19/24 13:42 Intake Total 2540.374 Output Total 4405 Balance -1864.626 Weight 109.2 kg Intake: IV 462.374 Oral 2078 Output: Urine 4405 Other: Urine Color Yellow Urine Appearance Clear Urinary Catheter Urinary Catheter Date of 07/17/24 Insertion [Urethral (Johnson)] Time of insertion [Urethral ( 20:22 Johnson)] Falls Risk Assessment History of Falls Admit Due to Fall 07/17/24 20:40 Contributing Factors Unstable,Impairments, 07/17/24 20:40 Medications Ambulatory Aids Uses ambulatory device 07/17/24 20:40 Gait Evaluation W/any additional score 07/17/24 20:40 Cognition No cognitive impairment 07/17/24 20:40 Fall Total Score 69 07/17/24 20:40 Level of Risk High Risk 07/17/24 20:40 Problems (Last Reviewed 07/19/24 @ 14:03 by Marcela Ferris NP) Septic shock (Acute) DVT prophylaxis (Acute) Urinary tract infection (Acute) ACP (advance care planning) (Acute) Palliative care encounter (Acute) Heart failure with preserved ejection fraction (HFpEF, >= 50%) (Acute) Decubitus ulcer of sacral region (Acute) Acute respiratory failure with hypoxia and hypercapnia (Acute) NATHAN (obstructive sleep apnea) (Chronic) COPD (chronic obstructive pulmonary disease) (Acute) v v v v v v v v v Sending and/or Receiving Nurses: Please use comment section below to note any information pertinent to the patient hand-off not included above. Information / Comments: arrived form rm 221 to rm 231 via recliner Report received from: HORACIO Hernandez
[2024-07-19] MEDS: Furosemide 40 MG/4 ML VIAL IVP (16:32)
[2024-07-19] MEDS: Bimatoprost 0.01% 2.5 ML BTL OP (20:52)
[2024-07-19] MEDS: DULoxetine 30 MG CAP PO (20:54)
[2024-07-19] MEDS: Insulin Glargine 300 UNITS/3 ML PEN 50 UNITS SC (20:54)
[2024-07-19] MEDS: traZODone 50 MG TAB PO (20:54)
[2024-07-19] MEDS: Metoprolol 50 MG TAB 150 MG PO (20:54)
--- NOTE | 2024-07-20 | DI.RAD_ITS ---
Exam(s) XR SHOULDER LT COMPLETE 2+V EXAM: XR SHOULDER LT COMPLETE 2+V CLINICAL HISTORY: shoulder pain. TECHNIQUE: 2D digital imaging was performed. COMPARISON: CR XR CHEST 2V PA LATERAL from 07/17/2024 FINDINGS: 3 views There is a healed fracture deformity at the left humeral-neck. No acute fractures but there is an ab normal soft tissue calcification measuring 8 x 6 mm located just lateral to the greater tuberosity co nsistent with calcific rotator cuff tendinitis. There is no dislocation glenohumeral joint. AC join t appears unremarkable as does the clavicle. Cardiac pacemaker noted as is pulmonary venous hypertension or interstitial pulmonary edema pattern. Also enlarged heart. IMPRESSION: Calcific rotator cuff tendinitis of the left shoulder. Healed fracture site at the left humeral head-neck. DATA REPOSITORY: RADIATION DOSE DELIVERED:
[2024-07-20 03:30] VITALS: BP 112/75; PULSE 96; RESP 20; TEMP 36.6; O2SAT 97
[2024-07-20 06:56] LABS: Abs Immature Grans 0.06 10^3/uL (0.0-0.06); HCT 33.8 % (36.0-46.0); HGB 10.3 g/dL (11.2-15.7); MCH 28.8 pg (27.0-33.0); MCHC 30.5 % (32.0-36.0); MCV 94 fL (80-95); MPV 11.4 fL (8.0-11.0); Nucleated RBC 0.4 % (0.0-0.3); Platelet Count 279 10^3/uL (130-400); RBC 3.58 10^6/uL (3.93-5.22); RDW 16.4 % (11.7-14.6); RDW-SD 56.8 fL; WBC 10.62 10^3/uL (4.4-10.8)
[2024-07-20 07:13] LABS: ALT 18 U/L (14-59); AST 15 U/L (15-37); Albumin 2.6 g/dL (3.4-5.0); Alkaline Phosphatase 120 U/L (46-116); Anion Gap 3.9 mmol/L (3-11); BUN 24 mg/dL (7-18); Bilirubin, Total 0.9 mg/dL (0.2-1.0); CO2 33.1 mmol/L (21.0-32.0); CREATININE 1.4 mg/dL (0.55-1.02); Calcium 8.9 mg/dL (8.5-10.1); Chloride 102 mmol/L (98-107); Estimated GFR 38.51 (mL/min/1.73m2); Glucose 167 mg/dL (74-106); Sodium 139 mmol/L (136-145); Total Protein 6.5 g/dL (6.4-8.2)
[2024-07-20 07:22] VITALS: BP 109/75; PULSE 121; RESP 16; TEMP 36.2; O2SAT 96
[2024-07-20 07:49] LABS: Absolute Lymphocyte Count 1.38 10^3/uL (1.2-3.4); Absolute Monocyte Count 0.53 10^3/uL (0.1-0.8); Absolute Neutrophil Count 7.97 10^3/uL (1.2-6.7)
[2024-07-20 07:50] LABS: Absolute Eosinophil Count 0.74 10^3/uL (0.0-0.7); Anisocytosis 1+; Diff Comment Manual Differential; Hypochromasia 1+; Poikilocytes 2+
[2024-07-20] MEDS: Insulin Aspart 300 UNITS/3 ML PEN SC ×6 (08:25→16:28)
[2024-07-20] MEDS: Polyethylene Glycol 3350 17 GM PACKET PO (08:26)
[2024-07-20] MEDS: CIPROFLOXACIN 400 MG/200 ML BAG 200 MG IVPB ×2 (08:26→20:16)
[2024-07-20] MEDS: Famotidine 20 MG TAB 10 MG PO (08:26)
[2024-07-20] MEDS: Apixaban 5 MG TAB PO ×2 (08:27→20:09)
[2024-07-20] MEDS: dilTIAZem CD 120 MG CAPCR 240 MG PO (08:27)
[2024-07-20] MEDS: Metoprolol 50 MG TAB 150 MG PO ×2 (08:27→20:08)
[2024-07-20] MEDS: Potassium Chloride 20 MEQ TABCR PO ×2 (08:27→20:09)
[2024-07-20] MEDS: Multivitamin TAB 1 TAB PO (08:27)
[2024-07-20] MEDS: Atorvastatin 40 MG TAB 80 MG PO (08:27)
[2024-07-20] MEDS: Sucralfate 1 GM TAB PO ×4 (08:27→22:25)
[2024-07-20] MEDS: Normal Saline Flush 10 ML SYR IVP ×2 (08:28→20:20)
[2024-07-20] MEDS: Furosemide 40 MG/4 ML VIAL IVP ×2 (08:28→16:29)
--- NOTE | 2024-07-20 08:59 | PTTR_ITS ---
Date of service: 07/20/24 Time of Service: 08:26 PT Notes Visit Reasons: UTI, Sepsis Inpatient Physical Therapy Treatment Note [facility] Date: July 20, 2024 PRECAUTIONS:IV access L UE Oxygen to keep sats 88-92% ( currently 1L/Min via NC), telemetry SUBJECTIVE: Pt reports she slept well. Notes her left shoulder is really bothering her and feels that it is paralyzed having a difficult time lifting and using her L arm. OBJECTIVE: reclined in chair , oxygen in place Pain: 6 pain in left shoulder VITALS: monitored via telemetry throughout ? Therapeutic Activities (80520): Direct one-on-one instruction in dynamic activities to improve functional performance. ?? Provided skilled cues and instruction on performance and technique throughout. ? TRANSFERS? Sit-stand: CGA x 3 trials?cues to push up from chair ?19 seat height ? Stand-sit: CGA x 3 trials cue to reach back ? Exercise: 2 sets 5 reps for pacing BLE reclined in chair: glute sets, quad sets, ankle pumps, heel slides, SLR seated: LAQ, marching ? ASSESSMENT:? Pt nikhil. session fairly well. Able and willing to participate in repetition of movement. Pt pSO2 remained within range 88-92% on 1L/min via NC. Patient complaining of increased L shoulder pain tolerates passive ROM however unable to lift against gravity without signficant pain. Unable to ambulate with FWW secondary to her L shoulder pain and fear of legs giving out. Was able to remain standing with FWW for ~ 2 minutes prior to sitting back down. PLAN: 1-2x/day, 7 days/week x 1 week. Plan of care has been reviewed with the MANAGER PRIMARY CARE providing the service under Physical Therapy direction. Initiate Physical Therapy intervention for strengthening, bed mobility, transfers, gait, balance training, use of assistive device. TREATMENT CODE/TIME: 78431, 66788/ 8:26-9:56 DISCHARGE RECOMMENDATION: SNF
[2024-07-20] MEDS: Tiotropium/Olodaterol 10 PUFF INHALER 2 PUFF IH (09:10)
--- NOTE | 2024-07-20 09:58 | W.PM.PROGNOT ---
Date of Service Date of service: 07/20/24 Time of Service: 09:58 Assessment and Plan Assessment and plan (1) Septic shock: Status: Acute Assessment and plan: Meets criterial for sepsis with elevated HR, WBC, RR, and lactate with UTI source Started with some fluids but BP dropped. POCUS c/w fluid overload with b-lines in lungs bilaterally and full IVC I don't think additional fluids will help. This case appears multifactorial with aspects of septic shock as well as cardiogenic Based on this assessment, stopping fluids and diuresing norepinephrine drip started, she will be admitted to ICU 07/18/24 Wean pressure support as tolerated 07/19/24 resolved (2) Urinary tract infection: Status: Acute Assessment and plan: Treating with ceftriaxone. Her last urine culture 06/10 was sensitive to this. 07/18/24 CW rocephin. Urine cultures pending as of 07/18/24 @1000 07/19/24 urine culture results noted. Will change to cipro PEC #: [id number] [place]: 07/17/24 STATUS: COMP REQ #: [id number] RECD: 07/17/24-[address]: DEIRDRE SINGH, LANA YU DR: Zeus Hebert FAX #: SOURCE:Urine SPECIMEN DESCRIPTION:Reflex from UA Procedure Result Verified Urine Culture Final 07/19/24 Day 1 Result ISOLATES BELOW ISOLATE 1 COLONY COUNT >100,000 COLONIES/ML ISOLATE 1 APPEARANCE Gram Positive Melissa ISOLATE 1 ACTION ID AND SUSCEPTIBILITY TO FOLLOW Day 2 Result ISOLATES BELOW ISOLATE 1 COLONY COUNT >100,000 COLONIES/ML ISOLATE 1 APPEARANCE Gram Positive Melissa Organism 1 Enterococcus faecalis COLONY COUNT >100,000 COLONIES/ML Ente fa[employer] Result Ampicillin S Ciprofloxacin S Daptomycin S Vancomycin S (3) Heart failure with preserved ejection fraction (HFpEF, >= 50%): Status: Acute Assessment and plan: Initial ED assessment was that she was mildly dry, gave gentle fluids, but now POCUS c/w fluid overload. LVEF grossly down, possible a/w sepsis. Last echo 04/2024 showed preserved LVEF EKG and troponins not c/w acute ischemia (4) Decubitus ulcer of sacral region: Status: Acute Assessment and plan: Continue to monitor, wound care. (5) COPD (chronic obstructive pulmonary disease): Status: Acute Assessment and plan: No clear exacerbation, neb didn't help much in ED, continue outpatient inhalers (6) Acute respiratory failure with hypoxia and hypercapnia: Status: Acute Assessment and plan: VGB c/w her chronic hypercarbia, but some increase hypoxia developing. Diuresing. (7) Atrial fibrillation: Assessment and plan: HR mildly elevated in setting of sepsis. Continue outpatient rate control with metoprolol and diltiazem, BPs have stayed stable. Continue apixaban 07/20/24 Elevated HR noted but already on fair amount of lopressor 150mg po bid. Per Epocrates, can increase to 200mg po bid. Consider if HR remains stable (8) Type 2 diabetes mellitus without complications: Assessment and plan: Adequately controlled with A1c 7.4 in May, at goal for age/comorbidities. Continue basal/bolus insulin. Holding empagliflozin with acute UTI (9) NATHAN (obstructive sleep apnea): Status: Chronic Assessment and plan: not on CPAP chronically, contributing to low oxygen at night. 07/20/24-Recommend outpatient sleep study (10) CKD (chronic kidney disease) stage 3, GFR 30-59 ml/min: Assessment and plan: At recent baseline 07/18/24 Most recent BUN/Cr 23/1.4 respectively (11) Anemia: Assessment and plan: mild, similar to previous 07/20/24 Most recent Hg/hct are 10/34 respectively. No indication for transfusion at this time (12) Hypomagnesemia: Status: Resolved Assessment and plan: replace and follow. With loop diuretic use should supplement chronically (13) Class 3 obesity: Assessment and plan: she may benefit from GLP-1 therapy, but did not tolerate semaglutide, f/u with pcp (14) DVT prophylaxis: Status: Acute Assessment and plan: on apixaban (15) Left shoulder pain: Status: Acute Assessment and plan: etiology unk but would appear to be related to rotator cuff. Will start evaluation with a shoulder film Subjective Subjective Interval history since last seen: Pt seen and examined in her room this am. Pt does c/o left shoulder pain and associated decreased ROM in LUE. Pt states that she did talk with PT about this. Pt note reviewed and no specific recommendations are made. Vital signs noted with tachycardia Exam Narrative Exam Narrative: HEENT: Head atraumatic. Conjunctiva clear, no icterus. PEERL, EOMI. no rhinorrhea, NC in place, MMM, OP benign. Neck is supple with no masses or lymphadenopathy, trachea midline. LUNGS: Basilar rales, otherwise clear bilaterally, speaking in short sentences, not in respiratory distress at rest CV: irregular, rate around 120, with no murmurs, gallops, or rubs. I could not appreciate elevated JVP but limited by habitus ABD: active bowel sounds, soft, and nondistended. Mild tenderness with deep RUQ tenderness, neg murphies. No masses. EXT: no cyanosis, clubbing. 2+ pitting edema bilaterally. warm, not tender LUE pain with passive motion in left shoulder joint. Could not elevate hand to shoulder level 2/2 pain MSK: No joint redness. Bruising below left knee. Pain with flexion past 30 degrees NEURO: CN 2-12 grossly intact. Normal movement of 4 extremities. Normal speech and coordination. No tremor SKIN: No rashes. pressure ulceration into dermis on buttock left of sacrum, dry, not draining, no redness around PSYCH: normal mood and affect, nl thought process Objective Last Vital Signs Temp 36.2 C L 07/20/24 07:22 Pulse 121 H 07/20/24 07:22 Resp 16 07/20/24 07:22 BP 109/75 07/20/24 07:22 Pulse Ox 96 07/20/24 07:22 Laboratory Results - last 24 hr 07/20/24 06:45 WBC 10.62 RBC 3.58 L Hgb 10.3 L Hct 33.8 L MCV 94 MCH 28.8 MCHC 30.5 L RDW 16.4 H Plt Count 279 MPV 11.4 H Immature Gran % See Differential Neutrophils % 75.0 Lymphocytes % 13.0 Monocytes % 5.0 Eosinophils % 7.0 Basophils % 0.0 Nucleated RBC % 0.4 H Absolute Neutrophils 7.97 H Absolute Lymphocytes 1.38 Absolute Monocytes 0.53 Absolute Eosinophils 0.74 H Absolute Basophils 0.00 RBC Morphology See Below Hypochromasia 1+ Poikilocytosis 2+ Anisocytosis 1+ Sodium 139 Potassium 4.0 Chloride 102 Carbon Dioxide 33.1 H Anion Gap 3.9 BUN 24 H Creatinine 1.4 H Est GFR (CKD-EPI 2020) 38.51 Glucose 167 H Calcium 8.9 Total Bilirubin 0.9 AST 15 ALT 18 Alkaline Phosphatase 120 H Total Protein 6.5 Albumin 2.6 L Time Spent with Patient Time Spent with Patient: 25-34 minutes Time was spent: preparing to see the patient(eg.review tests), obtaining and/or reviewing separately otained hiistory, ordering medications,tests, procedures, referring, communicating with other health occasional caregiver, indepentently interpreting results, counseling the patient and care coordination
--- NOTE | 2024-07-20 11:43 | DI.VRAD_ITS ---
PROCEDURE INFORMATION: Exam: XR Left Shoulder Exam date and time: 07/20/2024 11:23 AM Age: 78 years old Clinical indication: Pain; Shoulder; Left; Prior surgery; Surgery date: 6+ months; Surgery type: Pacemaker TECHNIQUE: Imaging protocol: Radiologic exam of the left shoulder. Views: 2 or more views. COMPARISON: CR XR CHEST 2V PA LATERAL 07/17/2024 3:04 PM FINDINGS: Bones/joints: Chronic deformity of the proximal humerus. No acute fracture or dislocation. Soft tissues: Unremarkable. IMPRESSION: No acute fracture. Dictated and Authenticated by: Sidney Mondragon MD. Orderin Christiano Powell MD
[2024-07-20] MEDS: Nystatin POWDER 15 GM JAR TP (12:50)
[2024-07-20 15:51] VITALS: BP 95/59; PULSE 64; RESP 16; TEMP 36.7; O2SAT 95
[2024-07-20 19:27] VITALS: BP 115/55; PULSE 80; RESP 16; TEMP 36.6; O2SAT 94
[2024-07-20] MEDS: DULoxetine 30 MG CAP PO (20:09)
[2024-07-20] MEDS: traZODone 50 MG TAB PO (20:09)
[2024-07-20] MEDS: Insulin Glargine 300 UNITS/3 ML PEN 50 UNITS SC (20:12)
[2024-07-20] MEDS: Bimatoprost 0.01% 2.5 ML BTL OP (20:12)
[2024-07-20 23:13] VITALS: BP 106/51; PULSE 61; TEMP 36.8; O2SAT 95
[2024-07-21 03:34] VITALS: BP 117/60; PULSE 78; TEMP 36.5; O2SAT 95
[2024-07-21 06:34] LABS: Abs Immature Grans 0.06 10^3/uL (0.0-0.06); Absolute Basophil Count 0.06 10^3/uL (0.0-0.2); Absolute Lymphocyte Count 1.12 10^3/uL (1.2-3.4); Absolute Neutrophil Count 6.72 10^3/uL (1.2-6.7); Basophils % 0.6 %; Eosinophils % 6.3 %; HGB 9.6 g/dL (11.2-15.7); Immature Grans % 0.6 %; Lymphocytes % 11.7 %; MCH 29.1 pg (27.0-33.0); MCV 94 fL (80-95); MPV 12.1 fL (8.0-11.0); Monocytes % 10.5 %; Neutrophils % 70.3 %; Nucleated RBC 0.3 % (0.0-0.3); Platelet Count 292 10^3/uL (130-400); RDW 16.2 % (11.7-14.6); WBC 9.56 10^3/uL (4.4-10.8)
[2024-07-21 07:24] LABS: ALT 17 U/L (14-59); AST 17 U/L (15-37); Albumin 2.6 g/dL (3.4-5.0); Alkaline Phosphatase 113 U/L (46-116); Anion Gap 4.3 mmol/L (3-11); BUN 25 mg/dL (7-18); Bilirubin, Total 0.9 mg/dL (0.2-1.0); CO2 33.7 mmol/L (21.0-32.0); CREATININE 1.4 mg/dL (0.55-1.02); Chloride 103 mmol/L (98-107); Estimated GFR 38.51 (mL/min/1.73m2); Glucose 161 mg/dL (74-106); Potassium 3.7 mmol/L (3.5-5.1); Sodium 141 mmol/L (136-145); Total Protein 6.3 g/dL (6.4-8.2)
[2024-07-21] MEDS: Furosemide 40 MG/4 ML VIAL IVP ×2 (07:42→16:34)
[2024-07-21] MEDS: CIPROFLOXACIN 400 MG/200 ML BAG 200 MG IVPB ×2 (07:43→20:08)
[2024-07-21] MEDS: Polyethylene Glycol 3350 17 GM PACKET PO (07:43)
[2024-07-21] MEDS: dilTIAZem CD 120 MG CAPCR 240 MG PO (07:44)
[2024-07-21] MEDS: Metoprolol 50 MG TAB 150 MG PO ×2 (07:44→20:08)
[2024-07-21] MEDS: Multivitamin TAB 1 TAB PO (07:44)
[2024-07-21] MEDS: Atorvastatin 40 MG TAB 80 MG PO (07:44)
[2024-07-21] MEDS: Apixaban 5 MG TAB PO ×2 (07:44→20:08)
[2024-07-21] MEDS: Famotidine 20 MG TAB 10 MG PO (07:44)
[2024-07-21] MEDS: Potassium Chloride 20 MEQ TABCR PO ×2 (07:45→20:08)
[2024-07-21] MEDS: Sucralfate 1 GM TAB PO ×4 (07:45→22:50)
[2024-07-21] MEDS: Normal Saline Flush 10 ML SYR IVP ×3 (07:45→20:10)
[2024-07-21 07:52] VITALS: BP 104/72; PULSE 77; RESP 18; TEMP 36.7; O2SAT 97
[2024-07-21] MEDS: Insulin Aspart 300 UNITS/3 ML PEN SC ×6 (07:58→17:27)
[2024-07-21] MEDS: Tiotropium/Olodaterol 10 PUFF INHALER 2 PUFF IH (09:08)
--- NOTE | 2024-07-21 09:34 | PT.INNT ---
PT Notes Visit Reasons: UTI, Sepsis Jessa refused PT today. Why do you people come in the morning. I don't feel like exercising. Discussed the importance of getting stronger. While she says she understands, she continued to refuse. I'm going to assisted living and people will be around to help me whenever I need it. Will check back in with her tomorrow.
[2024-07-21] MEDS: Nystatin POWDER 15 GM JAR TP ×2 (10:38→21:51)
--- NOTE | 2024-07-21 10:52 | W.PM.PROGNOT ---
Date of Service Date of service: 07/21/24 Time of Service: 10:53 Assessment and Plan Assessment and plan (1) Septic shock: Status: Acute Assessment and plan: Meets criterial for sepsis with elevated HR, WBC, RR, and lactate with UTI source Started with some fluids but BP dropped. POCUS c/w fluid overload with b-lines in lungs bilaterally and full IVC I don't think additional fluids will help. This case appears multifactorial with aspects of septic shock as well as cardiogenic Based on this assessment, stopping fluids and diuresing norepinephrine drip started, she will be admitted to ICU 07/18/24 Wean pressure support as tolerated 07/19/24 resolved (2) Urinary tract infection: Status: Acute Assessment and plan: Treating with ceftriaxone. Her last urine culture 06/10 was sensitive to this. 07/18/24 CW rocephin. Urine cultures pending as of 07/18/24 @1000 07/19/24 urine culture results noted. Will change to cipro PEC #: [id number] [place]: 07/17/24 STATUS: COMP REQ #: [id number] RECD: 07/17/24-[address]: DEIRDRE SINGH, LANA YU DR: Zeus Hebert FAX #: SOURCE:Urine SPECIMEN DESCRIPTION:Reflex from UA Procedure Result Verified Urine Culture Final 07/19/24 Day 1 Result ISOLATES BELOW ISOLATE 1 COLONY COUNT >100,000 COLONIES/ML ISOLATE 1 APPEARANCE Gram Positive Melissa ISOLATE 1 ACTION ID AND SUSCEPTIBILITY TO FOLLOW Day 2 Result ISOLATES BELOW ISOLATE 1 COLONY COUNT >100,000 COLONIES/ML ISOLATE 1 APPEARANCE Gram Positive Melissa Organism 1 Enterococcus faecalis COLONY COUNT >100,000 COLONIES/ML [employer] Result Ampicillin S Ciprofloxacin S Daptomycin S Vancomycin S (3) Heart failure with preserved ejection fraction (HFpEF, >= 50%): Status: Acute Assessment and plan: Initial ED assessment was that she was mildly dry, gave gentle fluids, but now POCUS c/w fluid overload. LVEF grossly down, possible a/w sepsis. Last echo 04/2024 showed preserved LVEF EKG and troponins not c/w acute ischemia (4) Decubitus ulcer of sacral region: Status: Acute Assessment and plan: Continue to monitor, wound care. (5) COPD (chronic obstructive pulmonary disease): Status: Acute Assessment and plan: No clear exacerbation, neb didn't help much in ED, continue outpatient inhalers (6) Acute respiratory failure with hypoxia and hypercapnia: Status: Acute Assessment and plan: VGB c/w her chronic hypercarbia, but some increase hypoxia developing. Diuresing. (7) Atrial fibrillation: Assessment and plan: HR mildly elevated in setting of sepsis. Continue outpatient rate control with metoprolol and diltiazem, BPs have stayed stable. Continue apixaban 07/20/24 Elevated HR noted but already on fair amount of lopressor 150mg po bid. Per Epocrates, can increase to 200mg po bid. Consider if HR remains stable (8) Type 2 diabetes mellitus without complications: Assessment and plan: Adequately controlled with A1c 7.4 in May, at goal for age/comorbidities. Continue basal/bolus insulin. Holding empagliflozin with acute UTI (9) NATHAN (obstructive sleep apnea): Status: Chronic Assessment and plan: not on CPAP chronically, contributing to low oxygen at night. 07/20/24-Recommend outpatient sleep study (10) CKD (chronic kidney disease) stage 3, GFR 30-59 ml/min: Assessment and plan: At recent baseline 07/18/24 Most recent BUN/Cr 23/1.4 respectively (11) Anemia: Assessment and plan: mild, similar to previous 07/20/24 Most recent Hg/hct are 10/34 respectively. No indication for transfusion at this time (12) Hypomagnesemia: Status: Resolved Assessment and plan: replace and follow. With loop diuretic use should supplement chronically (13) Class 3 obesity: Assessment and plan: she may benefit from GLP-1 therapy, but did not tolerate semaglutide, f/u with pcp (14) DVT prophylaxis: Status: Acute Assessment and plan: on apixaban (15) Left shoulder pain: Status: Acute Assessment and plan: etiology unk but would appear to be related to rotator cuff. Will start evaluation with a shoulder film 07/21/24 COMPARISON: CR XR CHEST 2V PA LATERAL from 07/17/2024 FINDINGS: 3 views There is a healed fracture deformity at the left humeral-neck. No acute fractures but there is an abnormal soft tissue calcification measuring 8 x 6 mm located just lateral to the greater tuberosity consistent with calcific rotator cuff tendinitis. There is no dislocation glenohumeral joint. AC joint appears unremarkable as does the clavicle. Cardiac pacemaker noted as is pulmonary venous hypertension or interstitial pulmonary edema pattern. Also enlarged heart. IMPRESSION: Calcific rotator cuff tendinitis of the left shoulder. Healed fracture site at the left humeral head-neck. 07/21/24 Follow up with Ortho at the discretion of PCP Subjective Subjective Interval history since last seen: Pt seen and examined in her room. No new complaints. Shoulder xray reviewed. Exam Narrative Exam Narrative: HEENT: Head atraumatic. Conjunctiva clear, no icterus. PEERL, EOMI. no rhinorrhea, NC in place, MMM, OP benign. Neck is supple with no masses or lymphadenopathy, trachea midline. LUNGS: Basilar rales, otherwise clear bilaterally, speaking in short sentences, not in respiratory distress at rest CV: irregular, rate around 120, with no murmurs, gallops, or rubs. I could not appreciate elevated JVP but limited by habitus ABD: active bowel sounds, soft, and nondistended. Mild tenderness with deep RUQ tenderness, neg murphies. No masses. EXT: no cyanosis, clubbing. 2+ pitting edema bilaterally. warm, not tender LUE pain with passive motion in left shoulder joint. Could not elevate hand to shoulder level 2/2 pain MSK: No joint redness. Bruising below left knee. Pain with flexion past 30 degrees NEURO: CN 2-12 grossly intact. Normal movement of 4 extremities. Normal speech and coordination. No tremor SKIN: No rashes. pressure ulceration into dermis on buttock left of sacrum, dry, not draining, no redness around PSYCH: normal mood and affect, nl thought process Objective Last Vital Signs Temp 36.7 C 07/21/24 07:52 Pulse 77 07/21/24 07:52 Resp 18 07/21/24 07:52 BP 104/72 07/21/24 07:52 Pulse Ox 97 07/21/24 07:52 Laboratory Results - last 24 hr 07/21/24 06:00 WBC 9.56 RBC 3.30 L Hgb 9.6 L Hct 31.0 L MCV 94 MCH 29.1 MCHC 31.0 L RDW 16.2 H Plt Count 292 MPV 12.1 H Immature Gran % 0.6 Neutrophils % 70.3 Lymphocytes % 11.7 Monocytes % 10.5 Eosinophils % 6.3 Basophils % 0.6 Nucleated RBC % 0.3 Absolute Neutrophils 6.72 H Absolute Lymphocytes 1.12 L Absolute Monocytes 1.00 H Absolute Eosinophils 0.60 Absolute Basophils 0.06 Sodium 141 Potassium 3.7 Chloride 103 Carbon Dioxide 33.7 H Anion Gap 4.3 BUN 25 H Creatinine 1.4 H Est GFR (CKD-EPI 2020) 38.51 Glucose 161 H Calcium 9.0 Total Bilirubin 0.9 AST 17 ALT 17 Alkaline Phosphatase 113 Total Protein 6.3 L Albumin 2.6 L Time Spent with Patient Time Spent with Patient: <25 minutes Time was spent: preparing to see the patient(eg.review tests), obtaining and/or reviewing separately otained hiistory, ordering medications,tests, procedures, referring, communicating with other health medicare compliance auditor, indepentently interpreting results, counseling the patient and care coordination
[2024-07-21 11:52] VITALS: BP 104/60; PULSE 64; RESP 15; TEMP 36.5; O2SAT 98
[2024-07-21 15:34] VITALS: BP 98/46; PULSE 80; RESP 14; TEMP 36.8; O2SAT 94
[2024-07-21 19:54] VITALS: BP 123/57; PULSE 95; RESP 15; TEMP 36.2; O2SAT 95
[2024-07-21] MEDS: DULoxetine 30 MG CAP PO (20:08)
[2024-07-21] MEDS: Bimatoprost 0.01% 2.5 ML BTL OP (20:08)
[2024-07-21] MEDS: traZODone 50 MG TAB PO (20:08)
[2024-07-21] MEDS: Insulin Glargine 300 UNITS/3 ML PEN 50 UNITS SC (20:27)
[2024-07-21 22:53] VITALS: BP 124/62; PULSE 80; RESP 18; TEMP 37.2; O2SAT 94
[2024-07-22 03:49] VITALS: BP 124/63; PULSE 79; RESP 18; TEMP 37.3; O2SAT 96
[2024-07-22 06:45] LABS: HGB 9.5 g/dL (11.2-15.7); MCH 28.9 pg (27.0-33.0); MCHC 30.6 % (32.0-36.0); MCV 94 fL (80-95); MPV 11.7 fL (8.0-11.0); Platelet Count 274 10^3/uL (130-400); RBC 3.29 10^6/uL (3.93-5.22); RDW 16.3 % (11.7-14.6); WBC 10.65 10^3/uL (4.4-10.8)
[2024-07-22 07:01] LABS: ALT 19 U/L (14-59); AST 16 U/L (15-37); Albumin 2.6 g/dL (3.4-5.0); Alkaline Phosphatase 113 U/L (46-116); Anion Gap 1.1 mmol/L (3-11); BUN 27 mg/dL (7-18); CO2 35.9 mmol/L (21.0-32.0); CREATININE 1.5 mg/dL (0.55-1.02); Calcium 8.9 mg/dL (8.5-10.1); Chloride 103 mmol/L (98-107); Estimated GFR 35.45 (mL/min/1.73m2); Glucose 229 mg/dL (74-106); Potassium 3.9 mmol/L (3.5-5.1); Sodium 140 mmol/L (136-145); Total Protein 6.5 g/dL (6.4-8.2)
[2024-07-22 07:04] LABS: Absolute Eosinophil Count 0.75 10^3/uL (0.0-0.7); Absolute Lymphocyte Count 1.92 10^3/uL (1.2-3.4); Absolute Monocyte Count 0.85 10^3/uL (0.1-0.8); Absolute Neutrophil Count 7.14 10^3/uL (1.2-6.7); Diff Comment Manual Differential; RBC Morphology Normal
[2024-07-22 07:33] VITALS: BP 109/47; PULSE 79; RESP 18; TEMP 37.1; O2SAT 93
[2024-07-22] MEDS: Insulin Aspart 300 UNITS/3 ML PEN SC ×4 (08:00→12:29)
[2024-07-22] MEDS: Sucralfate 1 GM TAB PO ×2 (08:01→12:29)
[2024-07-22] MEDS: Potassium Chloride 20 MEQ TABCR PO (08:16)
[2024-07-22] MEDS: Multivitamin TAB 1 TAB PO (08:16)
[2024-07-22] MEDS: Furosemide 40 MG/4 ML VIAL IVP (08:16)
[2024-07-22] MEDS: Normal Saline Flush 10 ML SYR IVP (08:16)
[2024-07-22] MEDS: Metoprolol 50 MG TAB 150 MG PO (08:16)
[2024-07-22] MEDS: Famotidine 20 MG TAB 10 MG PO (08:16)
[2024-07-22] MEDS: dilTIAZem CD 120 MG CAPCR 240 MG PO (08:17)
[2024-07-22] MEDS: Apixaban 5 MG TAB PO (08:17)
[2024-07-22] MEDS: Atorvastatin 40 MG TAB 80 MG PO (08:17)
[2024-07-22] MEDS: CIPROFLOXACIN 400 MG/200 ML BAG 200 MG IVPB (08:21)
[2024-07-22] MEDS: Tiotropium/Olodaterol 10 PUFF INHALER 2 PUFF IH (08:23)
[2024-07-22 08:24] VITALS: O2SAT 94
[2024-07-22 11:08] VITALS: BP 118/53; PULSE 78; RESP 18; TEMP 36.7; O2SAT 93
--- NOTE | 2024-07-22 11:39 | PT.INTREAT ---
PT Notes Visit Reasons: UTI, Sepsis Inpatient Physical Therapy Treatment Note [facility] Date: 07/22/24 SUBJECTIVE: Jessa is agreeable to PT this am. I think I'm leaving today to go to my new home. OBJECTIVE: []? PAIN: c/o mild left knee pain. VITALS: ?monitored by nsg. Therapeutic Activities (32469a): Direct one-on-one instruction in dynamic activities to improve functional performance. ? BED MOBILITY/TRANSFERS? pt seated in recliner.? Sit-stand: CGA of 1 ? Stand-sit: CGA ? Provided skilled cues and instruction on performance and technique throughout. ? Therapeutic Exercises (36489i7): Direct one-on-one instruction in therapeutic exercises to develop strength, endurance, range of motion and flexibility. ? Exercises ?seated in recliner in reclined position. AP, SLR, hip AB/ADD x10 ea. She then performed LAQ and marching in 90/90 position x 10ea. Sit to stand with min UE support, x5 (CGA from myself) Ambulation ? Assistive Device: FWW? Weight bearing: FWB Assist: CGA ? Distance:?march in place 2x 1min ea. ? Provided skilled instruction in proper exercise performance ASSESSMENT:? tolerated session well. C/o left knee pain with prolonged wt bearing. Noted fatigue post workout today, but no SOB. PLAN: will continue to work on strength and functional mobility to tolerance TREATMENT CODE/TIME: 20 min [id number] DISCHARGE RECOMMENDATION: SNF
[2024-07-22] MEDS: Nystatin POWDER 15 GM JAR TP (12:29)
--- NOTE | 2024-07-22 12:34 | CMDISCH_ITS ---
Date of service: 07/22/24 Time of Service: 12:34 LACE Index Scoring Tool Questions: Length of Stay (in days): 4 - 6 Was the patient admitted via the E.D.?: Yes Comorbidities: Diabetes w/o Complication, Chronic Pulmonary Disease and Mild Liver/Renal Disease E.D. Visits: 5 Answers: Total Score: 16 Risk of Readmission: High Risk Care Management Discharge Plan Reason for Hospitalization: UTI, s/p fall and down for 2 days Discharge Plan: Jessa is being transferred to [facility] today for continued rehab before returning home. Jessa is very pleased to be heading there, as is her family. Jessa will f/u with the facility provider and continue per her plan of care. Jessa will transport via [facility] wheelchair van as coordinated by CM. Patient/Family Education Needs: Review of discharge instructions, activity, limitations and discuss Ask me 3. SDOH Health Related Social Needs: Health related social needs housing instability, house d, with risk of homelessness (Z59.811), education (Z55.6)
--- NOTE | 2024-07-22 13:21 | W.PM.DS.N ---
Date of service: 07/22/24 Time of Service: 13:21 DS: Diagnosis Discharge Diagnosis (1) Septic shock: Status: Acute (2) Urinary tract infection: Status: Acute (3) Heart failure with preserved ejection fraction (HFpEF, >= 50%): Status: Acute (4) Decubitus ulcer of sacral region: Status: Acute (5) COPD (chronic obstructive pulmonary disease): Status: Acute (6) Acute respiratory failure with hypoxia and hypercapnia: Status: Acute (7) Atrial fibrillation: (8) Type 2 diabetes mellitus without complications: (9) NATHAN (obstructive sleep apnea): Status: Chronic (10) CKD (chronic kidney disease) stage 3, GFR 30-59 ml/min: (11) Anemia: (12) Hypomagnesemia: Status: Resolved (13) Class 3 obesity: (14) DVT prophylaxis: Status: Acute (15) Left shoulder pain: Status: Acute Discharge Plan Disposition Patient Disposition: [facility]NF) Condition: Stable Discharge Details Reason For Visit: UTI, Sepsis Admit Date/Time: 07/17/24 16:56 Admit Provider: Chi Solitario Attending Provider: Chi Solitario Primary Care Provider: Zeus Hebert Hospital Course Hospital Course: This is a 78-year-old female who is well-known to our service presents with sepsis most likely due to UTI on 17 July. Patient was admitted to the hospital for pressure support IV fluids and antibiotics. Ensuing workup indicated Enterococcus facialis with sensitivity to Cipro which patient was changed over to. While she was in the hospital she did complain of left upper extremity pain and x-ray did indicate a possible chronic deformity of the proximal humerus. While she was here she was also treated with for CHF exacerbation with diuretics and a COPD exacerbation with inhalers and steroids. On the we recommended discharge to which she agreed. [facility] with 3 days of prescription for Cipro and will otherwise continue with her home meds. History of Present Illness History of Present Illness Chief Complaint: fall Narrative: 78 yo F with CKD 3b, Asthma/COPD, HFpEF, CAD s/p CABG, Aortic stenosis s/p bovine AVR, Atrial fibrillation on apixaban, and type 2 DM who was just admitted 07/08-07/12/24 at [facility] for CHF exacerbation after she ran out of her medication. She states she fell two days ago getting out of her lift chair. She can't remember exactly how it happened but she remembers the lift chair being up when she was on the ground. For two days she was yelling for help. She could not get up to eat or drink or take her medication. She urinated through her depends. Finally she was able to get help from a neighbor and EMS came. She has not had chest pain but does feel a little short of breath. No increase in cough or sputum. Her throat is sore and raspy from yelling but no other URI symtpoms. She has not had diarrhea, nausea, or vomiting. She has had urinary incontinence. She does not have fever or chills. She does feel fatigued and with poor appetite. This is her fifth admission this year, for CHF, CHF/COPD, and hypoglycemia. She states she thinks she may be better off at a prison facility. Assessment and Plan Assessment and plan (1) Septic shock: Status: Acute Assessment and plan: Meets criterial for sepsis with elevated HR, WBC, RR, and lactate with UTI source Started with some fluids but BP dropped. POCUS c/w fluid overload with b-lines in lungs bilaterally and full IVC I don't think additional fluids will help. This case appears multifactorial with aspects of septic shock as well as cardiogenic Based on this assessment, stopping fluids and diuresing norepinephrine drip started, she will be admitted to ICU (2) Urinary tract infection: Status: Acute Assessment and plan: Treating with ceftriaxone. Her last urine culture 06/10 was sensitive to this. (3) Heart failure with preserved ejection fraction (HFpEF, >= 50%): Status: Acute Assessment and plan: Initial ED assessment was that she was mildly dry, gave gentle fluids, but now POCUS c/w fluid overload. LVEF grossly down, possible a/w sepsis. Last echo 04/2024 showed preserved LVEF EKG and troponins not c/w acute ischemia (4) Decubitus ulcer of sacral region: Status: Acute Assessment and plan: Continue to monitor, wound care. (5) COPD (chronic obstructive pulmonary disease): Status: Acute Assessment and plan: No clear exacerbation, neb didn't help much in ED, continue outpatient inhalers (6) Acute respiratory failure with hypoxia and hypercapnia: Status: Acute Assessment and plan: VGB c/w her chronic hypercarbia, but some increase hypoxia developing. Diuresing. (7) Atrial fibrillation: Assessment and plan: HR mildly elevated in setting of sepsis. Continue outpatient rate control with metoprolol and diltiazem, BPs have stayed stable. Continue apixaban (8) Type 2 diabetes mellitus without complications: Assessment and plan: Adequately controlled with A1c 7.4 in May, at goal for age/comorbidities. Continue basal/bolus insulin. Holding empagliflozin with acute UTI (9) NATHAN (obstructive sleep apnea): Status: Chronic Assessment and plan: not on CPAP chronically, contributing to low oxygen at night. (10) CKD (chronic kidney disease) stage 3, GFR 30-59 ml/min: Assessment and plan: At recent baseline (11) Anemia: Assessment and plan: mild, similar to previous (12) Hypomagnesemia: Status: Resolved Assessment and plan: replace and follow. With loop diuretic use should supplement chronically (13) Class 3 obesity: Assessment and plan: she may benefit from GLP-1 therapy, but did not tolerate semaglutide, f/u with pcp (14) DVT prophylaxis: Status: Acute Assessment and plan: on apixaban Home Meds and New Rx's Prescriptions: New ciprofloxacin HCl [Cipro] 250 mg tablet 250 mg PO BID 3 Days Qty: 6 0RF Continued sucralfate 1 gram tablet 1 g PO QID diltiazem HCl 240 mg capsule,extended release 24hr 240 mg PO DAILY Qty: 90 3RF atorvastatin 80 mg tablet 80 mg PO DAILY duloxetine 30 mg capsule,delayed release(DR/EC) 30 mg PO QPM Eliquis 5 mg tablet 5 mg PO BID famotidine 20 mg tablet 20 mg PO DAILY trazodone 50 mg tablet 50 mg PO HS furosemide 40 mg tablet 40 mg PO BID Qty: 0 0RF insulin aspart U-100 [Novolog FlexPen U-100 Insulin] 100 unit/mL (3 mL) insulin pen 10 unit SUBCUT TID insulin glargine [Lantus Solostar U-100 Insulin] 100 unit/mL (3 mL) insulin pen 58 unit subcut QPM Qty: 0 0RF Lumigan 0.01 % drops 1 drp ophthalmic (eye) QPM multivitamin [Daily Multi-Vitamin] Tablet 1 tab PO DAILY nystatin 100,000 unit/gram powder 1 applic topical BID Stiolto Respimat 2.5-2.5 mcg/actuation mist 2 inh inhalation DAILY Jardiance 10 mg Tablet 10 mg PO QAM Qty: 90 0RF metoprolol tartrate 100 mg tablet 100 mg PO BID metoprolol tartrate 50 mg Tablet 50 mg PO BID Discharge Instructions Activity:: Activity as Tolerated Equipment/Supplies:: No Equipment Needed Diet:: As Tolerated Discharge Orders Discharge Orders: Discharge Order (Routine); Ordered 07/22/24 Ordered By: Andre Alvarado DS: Summary Time Spent with Patient providing and/or coordinating discharge services: Greater than 30 minutes Status at Discharge Functional status at discharge: uses cane/walker Overall status at discharge: patient is progressing back to baseline Mental Status: mental status grossly normal Speech and Movement: speech and movement normal Mood: congruent mood Affect: normal affect Quality:SDOH Health Related Social Needs: Health related social needs housing instability, housed, with risk of homelessness (Z59.811), education (Z55.6) Exam Narrative Exam Narrative: HEENT: Head atraumatic. Conjunctiva clear, no icterus. PEERL, EOMI. no rhinorrhea, NC in place, MMM, OP benign. Neck is supple with no masses or lymphadenopathy, trachea midline. LUNGS: Basilar rales, otherwise clear bilaterally, speaking in short sentences, not in respiratory distress at rest CV: irregular, rate around 120, with no murmurs, gallops, or rubs. I could not appreciate elevated JVP but limited by habitus ABD: active bowel sounds, soft, and nondistended. Mild tenderness with deep RUQ tenderness, neg murphies. No masses. EXT: no cyanosis, clubbing. 2+ pitting edema bilaterally. warm, not tender LUE pain with passive motion in left shoulder joint. Could not elevate hand to shoulder level 2/2 pain MSK: No joint redness. Bruising below left knee. Pain with flexion past 30 degrees NEURO: CN 2-12 grossly intact. Normal movement of 4 extremities. Normal speech and coordination. No tremor SKIN: No rashes. pressure ulceration into dermis on buttock left of sacrum, dry, not draining, no redness around PSYCH: normal mood and affect, nl thought process Psych Mental Status: mental status grossly normal Speech and Movement: speech and movement normal Mood: congruent mood Affect: normal affect DS: Data Vitals/I&O Vitals and I&O: Vital Signs Temperature 36.7 C 07/22/24 11:08 Temperature Source Temporal Artery Scan 07/22/24 11:08 Pulse 78 07/22/24 11:08 Pulse 141 H 07/19/24 14:02 Respiratory Rate 18 07/22/24 11:08 Respiratory Effort Normal 07/17/24 20:40 Respiratory Depth Shallow 07/17/24 20:40 Respiratory Pattern Normal 07/17/24 20:40 Blood Pressure 118/53 L 07/22/24 11:08 Blood Pressure Mean 66 07/19/24 14:02 Blood Pressure Position Supine 07/17/24 20:40 Pulse Oximetry 93 07/22/24 11:08 Oxygen Delivery Method Nasal Cannula 07/22/24 11:08 Oxygen Flow Rate 1 07/22/24 11:08 Fraction of Inspired Oxygen (FIO2) 24 07/18/24 09:13 Pain Level 0 07/22/24 11:08 Comment Notifying RN 07/22/24 11:08 Comment Left Arm 07/18/24 08:18 Intake & Output 07/21/24 07/22/24 07/22/24 23:59 11:59 23:59 Intake Total 200 / 400 Output Total 850 / 1850 2250 / 2250 Balance -650 / -1450 -2250 / -2250 Intake: IV 200 / 400 Output: Urine 850 / 1850 2250 / 2250 Other: Urine Color Yellow Straw Urine Appearance Clear Clear Comment patent draining yellow clear Data Completed and Pending Labs on day of discharge: Labs from last 24 hours 07/22/24 06:33 WBC 10.65 RBC 3.29 L Hgb 9.5 L Hct 31.0 L MCV 94 MCH 28.9 MCHC 30.6 L RDW 16.3 H Plt Count 274 MPV 11.7 H Immature Gran % 0.0 Neutrophils % 67.0 Lymphocytes % 18.0 Monocytes % 8.0 Eosinophils % 7.0 Basophils % 0.0 Nucleated RBC % 0.0 Absolute Neutrophils 7.14 H Absolute Lymphocytes 1.92 Absolute Monocytes 0.85 H Absolute Eosinophils 0.75 H Absolute Basophils 0.00 RBC Morphology Normal Sodium 140 Potassium 3.9 Chloride 103 Carbon Dioxide 35.9 H Anion Gap 1.1 L BUN 27 H Creatinine 1.5 H Est GFR (CKD-EPI 2020) 35.45 Glucose 229 H Calcium 8.9 Total Bilirubin 1.0 AST 16 ALT 19 Alkaline Phosphatase 113 Total Protein 6.5 Albumin 2.6 L PFSH All Active Problems (Updated 07/22/24 @ 13:21 by Andre Alvarado MD) Left shoulder pain (Acute) Septic shock (Acute) Severe sepsis (Acute) DVT prophylaxis (Acute) Urinary tract infection (Acute) Sepsis (Acute) Need for home health care (Acute) ACP (advance care planning) (Acute) Palliative care encounter (Acute) Heart failure with preserved ejection fraction (HFpEF, >= 50%) (Acute) Decubitus ulcer of sacral region (Acute) Acute respiratory failure with hypoxia and hypercapnia (Acute) NATHAN (obstructive sleep apnea) (Chronic) Yeast infection of the skin (Acute) Respiratory failure (Acute) Asthma (Chronic) Elevated BUN (Acute) Atrial fibrillation with rapid ventricular response (Acute) COPD (chronic obstructive pulmonary disease) (Acute) Chronic obstructive pulmonary disease with (acute) exacerbation (Acute) Medical History Class 3 obesity Chronic respiratory failure with hypercapnia CKD (chronic kidney disease) stage 3, GFR 30-59 ml/min Atrial fibrillation Type 2 diabetes mellitus without complications HTN (hypertension) Depressive disorder GERD (gastroesophageal reflux disease) Cardiac pacemaker in situ placed 04/22/2022 in [place]. [employer] Lottie ZURITA [id number] SERIAL # [id number] RH ENTERED 04/17/24 Loose left total knee arthroplasty Contusion of toe, left Dermal mycosis Thyroid nodule Diabetic peripheral neuropathy Vitamin D deficiency Hyperparathyroidism HLD (hyperlipidemia) Anemia Leukocytosis Cellulitis Stress incontinence Diabetes Anxiety Surgical History S/P AVR replaced with bovine valve Hx of CABG Family History Father Bone cancer Mother Myocardial infarction Brother Myocardial infarction Social History Smoking/Tobacco Use Status: Former Tobacco Use Smoking risk assessment performed?: Yes Alcohol Intake: never Drug use: Never Substance use type: does not use Housing: apartment Do you feel safe at home: Yes Do you feel safe in your relationship?: Yes Additional Social history: [place] [facility] [place] [facility]. Gets around with electric wheelchair Time Spent with Patient Time Spent with Patient: 45-69 minutes Time was spent: preparing to see the patient(eg.review tests), obtaining and/or reviewing separately otained hiistory, ordering medications,tests, procedures, referring, communicating with other health plant health care technician, indepentently interpreting results, counseling the patient and care coordination
--- NOTE | 2024-07-22 13:57 | SUR.INTRAOP ---
report called to [facility] at 13:57 to HORACIO Barnett
--- NOTE | 2024-07-22 14:11 | RESPIRATORY ---
Pt discharged from [facility] today to SNF facility - [facility]) with [facility] oxygen tank from consignment closet. SN on regulator [id number].
== END 2024-07-22 14:20 | disposition skilled nursing facility (03) | DRG 871 ==
LOC: ER 17:26 → ICU 20:31 → MS 07-19 15:19
PROVIDERS: Physician Assistant; Admitting Provider Family Medicine; Emergency Provider Physician Assistant; PCP Student in an Organized Health Care Education/Training Program; Responsible Provider Hospitalist; Visit Provider Family Medicine
DX: A41.9 Sepsis, unspecified organism (principal); I50.33 Acute on chronic diastolic (congestive) heart failure; R65.21 Severe sepsis with septic shock; J96.01 Acute respiratory failure with hypoxia; J96.22 Acute and chronic respiratory failure with hypercapnia; N39.0 Urinary tract infection, site not specified; I48.11 Longstanding persistent atrial fibrillation; Z68.43 Body mass index [BMI] 50.0-59.9, adult; I13.0 Hypertensive heart and chronic kidney disease with heart failure and stage 1 through stage 4 chronic kidney disease, or unspecified chronic kidney disease; J44.1 Chronic obstructive pulmonary disease with (acute) exacerbation; L89.152 Pressure ulcer of sacral region, stage 2; Z79.4 Long term (current) use of insulin; E11.22 Type 2 diabetes mellitus with diabetic chronic kidney disease; G47.33 Obstructive sleep apnea (adult) (pediatric); N18.32 Chronic kidney disease, stage 3b; D64.9 Anemia, unspecified; E66.813 Obesity, class 3; M25.512 Pain in left shoulder; Z79.01 Long term (current) use of anticoagulants; Z99.81 Dependence on supplemental oxygen; F32.A Depression, unspecified; K21.9 Gastro-esophageal reflux disease without esophagitis; Z95.0 Presence of cardiac pacemaker; F41.9 Anxiety disorder, unspecified; E21.3 Hyperparathyroidism, unspecified; E11.42 Type 2 diabetes mellitus with diabetic polyneuropathy; E78.5 Hyperlipidemia, unspecified; N39.3 Stress incontinence (female) (male); Z95.3 Presence of xenogenic heart valve; Z95.1 Presence of aortocoronary bypass graft; Z87.891 Personal history of nicotine dependence; W07.XXXA Fall from chair, initial encounter; Z66 Do not resuscitate; B95.2 Enterococcus as the cause of diseases classified elsewhere; M75.32 Calcific tendinitis of left shoulder
CPT/HCPCS: 00123; 36415; 36416; 51702; 80048; 80053; 82550; 82805; 82962; 87077; 94640; 96361; 96365; 96366; 96367; 96375; 97110; 97162; 97530; 99285; 70450; 71046; 73030; 81003; 81015; 83605; 83735; 83880; 84484; 85025; 87086; 87186; 94664; 94760; 99223; 99232; 99239; J0696; J0744; J1815; J1941; J3475

== ENCOUNTER 2024-08-18 12:39 | Inpatient (IN) | payer MEDICARE, MEDICAID, SELFPAY ==
[2024-08-18] VITALS (77 sets, daily range): BP systolic 70–161; BP diastolic 41–130; PULSE 0–176; RESP 12–31; TEMP 36.8–37.1; O2SAT 82–100
--- NOTE | 2024-08-18 13:00 | DI.CT_ITS ---
Exam(s) CT CHEST/ABD/PEL WO CT THORACIC LUMBAR SPINE REC EXAM: CT CHEST/ABD/PEL WO CLINICAL HISTORY: fall, pain TECHNIQUE: Imaging Protocol: Axial computed tomography images with coronal and sagittal reformatted images were created and reviewed. Computer aided detection (CAD) was utilized. COMPARISON: CT CT CHEST PE CTA from 04/10/2024 FINDINGS: The examination is limited due to patient motion artifact. Lack of IV contrast does limit evaluation of the abdominal pelvic organs. CHEST: Tracheobronchial tree: Patent where visualized. No bronchiectasis. Pulmonary parenchyma: There are bilateral ground-glass opacities. There is consolidation in the righ t lower lobe subjacent to the large right pleural effusion. No architectural distortion. Mediastinum and Ynes: No dominant adenopathy or fluid collection. The esophagus is unremarkable. Thyroid gland: There hypodensities seen in the inferior pole of the right lobe of the thyroid gland. The largest measures 2 cm. Nonemergent thyroid ultrasound is recommended for further characterizati on. Pleura: There is a stable left pleural effusion. There is been significant increase in size of the r ight pleural effusion which is now large. Pneumothorax. Heart: Cardiomegaly. There is an aortic valve replacement. Calcification of the mitral annulus is p resent. Three vessel coronary artery calcification is present. No pericardial effusion. Aorta: Thoracic aorta non-dilated. Atherosclerotic calcification is present. Lymph nodes: Within normal limits. Bones:Within normal limits for the patient's age. No displaced rib fractures are present. Tubes, Catheters, and Lines: There is a cardiac pacing device in place. Soft tissues: Unremarkable. CT recons of the thoracic spine: Age-appropriate degenerative changes are present. No acute fracture s or subluxations are present. CT recons of the lumbar spine: Age-appropriate degenerative changes are present. No acute fractures or subluxations are present. There is a mild right convex curvature of the lumbar spine. ABDOMEN: Liver: Normal density. No measurable mass. Gallbladder and Biliary Tract: Status post cholecystectomy. No significant biliary ductal dilatation is present. Pancreas: Normal density, no abnormal calcifications or inflammatory process. Spleen: Normal. Adrenals: No masses seen. Kidneys: Normal size, contour and axis. No radiodense stones or obstructive uropathy. No masses seen. Abdominal Aorta: Abdominal portion non-dilated. Atherosclerotic calcification is present Bowel: There is diverticulosis of the colon without evidence of acute diverticulitis. There is no ev idence of bowel obstruction or bowel wall thickening. No evidence of appendicitis. Peritoneal Cavity: No ascites, collection or mesenteric inflammatory response. No free air. Lymph Nodes: Within normal limits. Bones: Within normal limits for the patient's age. Soft Tissues: There is nonspecific edema seen in the soft tissues of the abdominal wall. No focal fl uid collection is appreciated. PELVIS: Bladder: There is mild thickening of the wall of the urinary bladder. The urinary bladder is distend ed. Mild inflammatory changes are seen around the bladder. No intraluminal mass or calculus is iden tified. Reproductive Organs: Status post hysterectomy. Lymph Nodes: Within normal limits. Bones: Within normal limits for the patient's age. IMPRESSION: 1. Bilateral ground-glass opacities in the lungs. These are nonspecific. Differential consideration s include pneumonia, edema or contusions. 2. Bilateral pleural effusions. There has been significant increase in size of the right pleural eff usion since the prior examination. There is a subjacent infiltrate seen in the right lower lobe. 3. Right thyroid nodules. The largest measures 2 cm. Nonemergent thyroid ultrasound is recommended for further evaluation. 4. Distended urinary bladder. Mild wall thickening and surrounding infiltration of the urinary bladd er. Cystitis should be considered. Please correlate clinically. 5. Colonic diverticulosis without evidence of acute diverticulitis. 6. No acute fracture or subluxation is seen in the thoracic or lumbar spine. RADIATION DOSE DELIVERED: 1,502.85mGy.cm Total DLP 1,502.85mGy.cm Total DLP DATA REPOSITORY: All CT scans at this facility are submitted to the National Radiology Data Registry (NRDR) Dose Index Registry (DIR) with the [employer] (A[employer]). RADIATION OPTIMIZATION: All CT scans at this facility use at least one of these dose optimization te chniques: automated exposure control; mA and/or kV adjustment per patient size (includes targeted exa ms where dose is matched to clinical indication); or iterative reconstruction.
--- NOTE | 2024-08-18 13:00 | RT.EKG_ITS ---
APPROVED REPORT Exam: Resting ECG Reason for Exam: Rapid HR, fall Patient Location: E HR:153 bpm ECG Measurements Heart Rate 153 AXIS CA [id number] P [id number] QRSd 83 QRS -29 QT 286 T [id number] QTc 460 Conclusion Atrial fibrillation with rapid V-rate...A-rate 359 Anterior infarct, old...Q >40mS, abnormal ST-T, V2-V5 ATRIAL FIBRILLATION WITH RAPID V-RATE, VARIED V-RATE > 150, when compared to prior 07/08/24 patient no longer paced, no with RVR. WD
--- NOTE | 2024-08-18 13:00 | DI.RAD_ITS ---
Exam(s) XR PORTABLE CHEST AP EXAM: XR PORTABLE CHEST AP CLINICAL HISTORY: a fib TECHNIQUE: 2D digital imaging was performed of the chest. One image was obtained. An AP view was ob tained. COMPARISON: CR XR CHEST 2V PA LATERAL from 07/17/2024 FINDINGS: MEDIASTINUM: Normal. HEART: There is an aortic valvular replacement. PULMONARY VASCULATURE: There is prominence of the pulmonary vasculature and interstitial prominence s uggesting pulmonary venous congestion/pulmonary edema. LUNGS: There are scattered opacities in the lungs which may represent edema or pneumonia. Please cor relate clinically. PLEURAL SPACE: No pneumothorax is present. There is blunting of the costophrenic angle suggesting pl eural effusions. BONE:Within normal limits for the patient's age. OTHER FINDINGS:There is a 2 lead cardiac pacing device. IMPRESSION: 1. Findings suggestive pulmonary edema and pulmonary venous congestion. 2. Bilateral patchy opacities in the lungs which may represent pneumonia. 3. Small bilateral pleural effusions. 4. Please see the CT scan of the chest abdomen and pelvis for further characterization of the lung. DATA REPOSITORY: RADIATION DOSE DELIVERED:
--- NOTE | 2024-08-18 13:00 | DI.CT_ITS ---
Exam(s) CT HEAD CERVICAL SPINE WO EXAM: CT HEAD CERVICAL SPINE WO CLINICAL HISTORY: AMS, fall. TECHNIQUE: Imaging Protocol: Axial computed tomography images with coronal and sagittal reformatted images were created and reviewed COMPARISON: CT CT HEAD WO from 04/10/[address] HEAD WO from 07/17/2024 FINDINGS: The examination is limited due to patient motion artifact. CT Head: Ventricles and Extra axial spaces: Normal in size and morphology for the patient's age. Hemorrhage: None. Cerebral parenchyma: There are areas of decreased attenuation in the white matter consistent with chr onic microvascular ischemic disease. No acute mass effect is seen. No evidence to suggest an acute infarct or present. Midline shift: None. Brainstem/Cerebellum: Normal. Calvarium: Normal. Visualized Paranasal sinuses/Mastoids: Soft tissue in the left nasal passageway likely reflects a shirley al polyp. Soft Tissues: Unremarkable. CT Cervical Spine: Bones: No acute fracture or subluxation. Mild chronic appearing anterolisthesis of C3 on C4, C4 on C5 and C5 on C6 is present. Age-appropriate degenerative changes are seen particularly at the C6-C7 le neptali. Soft Tissues: Unremarkable. Lung Apices: There is a right pleural effusion. IMPRESSION: 1. No acute intracranial process. 2. No acute fracture or subluxation in the cervical spine. 3. There is a right pleural effusion. RADIATION DOSE DELIVERED: 1,316.95mGy.cm Total DLP DATA REPOSITORY: All CT scans at this facility are submitted to the National Radiology Data Registry (NRDR) Dose Index Registry (DIR) with the [employer] (ACR). RADIATION OPTIMIZATION: All CT scans at this facility use at least one of these dose optimization te chniques: automated exposure control; mA and/or kV adjustment per patient size (includes targeted exa ms where dose is matched to clinical indication); or iterative reconstruction.
--- NOTE | 2024-08-18 13:06 | W.ED.GENAD ---
Discharge Plan Disposition Patient Disposition: Admit to [facility] Discharge Details Clinical Impression: Atrial fibrillation with RVR, Acute hypokalemia, Hypomagnesemia, Fall, Congestive heart failure, Acute UTI, Elevated lactic acid level, Pleural effusion, Pneumonia Primary Care Provider: Zeus Hebert ED Provider: Tasia Flores Home Meds and New Rx's Prescriptions: No Action sucralfate 1 gram tablet 1 g PO QID diltiazem HCl 240 mg capsule,extended release 24hr 240 mg PO DAILY Qty: 90 3RF atorvastatin 80 mg tablet 80 mg PO DAILY duloxetine 30 mg capsule,delayed release(DR/EC) 30 mg PO QPM Eliquis 5 mg tablet 5 mg PO BID famotidine 20 mg tablet 20 mg PO DAILY trazodone 50 mg tablet 50 mg PO HS furosemide 40 mg tablet 40 mg PO BID Qty: 0 0RF insulin aspart U-100 [Novolog FlexPen U-100 Insulin] 100 unit/mL (3 mL) insulin pen 10 unit SUBCUT TID insulin glargine [Lantus Solostar U-100 Insulin] 100 unit/mL (3 mL) insulin pen 58 unit subcut QPM Qty: 0 0RF Lumigan 0.01 % drops 1 drp ophthalmic (eye) QPM multivitamin [Daily Multi-Vitamin] Tablet 1 tab PO DAILY Stiolto Respimat 2.5-2.5 mcg/actuation mist 2 inh inhalation DAILY Jardiance 10 mg Tablet 10 mg PO QAM Qty: 90 0RF metoprolol tartrate 100 mg tablet 100 mg PO DAILY metoprolol tartrate 25 mg tablet 25 mg PO DAILY Patient Comments: TAKE ONE TABLET BY MOUTH TWICE A DAY HPI General Date/Time Provider Initiated Documentation: 08/18/24 12:50. HPI Narrative: 78-year-old female with history of atrial fibrillation, COPD, asthma, HFpEF, and prior urinary tract infections with sepsis presents for evaluation after unwitnessed fall. Patient was found down on the ground in her room. She states that she was there for a long time. She does remember having her breakfast tray brought to her this morning but fell sometime after that. She is complaining of pain in her right knee. Upon ED arrival patient was found to have a rapid heart rate. On review of MAR she apparently has not taken any of her medications for the last 5 days. She is a somewhat poor historian. She states that she has not had any appetite today. Denies any fevers or chills. Denies any vomiting. She states that she does feel like she did when she had prior urinary tract infections. There is some slight discomfort with urinating. She denies any chest pain or shortness of breath. She does have swelling to her extremities which she states is at baseline. Related Data Home Medications ?Medication ?Instructions ?Recorded ?Confirmed apixaban 5 mg tablet (Eliquis) 5 mg PO BID 12/19/23 08/18/24 atorvastatin 80 mg tablet 80 mg PO DAILY 12/19/23 08/18/24 duloxetine 30 mg capsule,delayed 30 mg PO QPM 12/19/23 08/18/24 release famotidine 20 mg tablet 20 mg PO DAILY 12/19/23 08/18/24 trazodone 50 mg tablet 50 mg PO HS 12/19/23 08/18/24 sucralfate 1 gram tablet 1 g PO QID 04/09/24 08/18/24 diltiazem HCl 240 mg 240 mg PO DAILY #90 caps 04/30/24 08/18/24 capsule,extended release 24 hr furosemide 40 mg tablet 40 mg PO BID #0 tabs 05/29/24 08/18/24 insulin aspart U-100 100 unit/mL 10 unit subcut TID 06/10/24 08/18/24 (3 mL) subcutaneous pen (Novolog FlexPen U-100 Insulin aspart) insulin glargine 100 unit/mL (3 58 unit (0.58 mL) subcut QPM #0 mL 06/12/24 08/18/24 mL) subcutaneous pen (Lantus Solostar U-100 Insulin) bimatoprost 0.01 % eye drops 1 drp ophthalmic (eye) QPM 07/08/24 08/18/24 (Lumigan) multivitamin (Daily Multi-Vitamin 1 tab PO DAILY 07/08/24 08/18/24 tablet) tiotropium 2.5 mcg-olodaterol 2.5 2 inh inhalation DAILY 07/08/24 08/18/24 mcg/actuation mist for inhalation (Stiolto Respimat) empagliflozin 10 mg tablet 10 mg PO QAM #90 tabs 07/12/24 08/18/24 (Jardiance) metoprolol tartrate 100 mg tablet 100 mg PO DAILY 07/18/24 08/18/24 metoprolol tartrate 25 mg tablet 25 mg PO DAILY 08/18/24 08/18/24 Previous Rx's ?Medication ?Instructions ?Recorded diltiazem HCl 240 mg 240 mg PO DAILY #90 caps 04/30/24 capsule,extended release 24 hr furosemide 40 mg tablet 40 mg PO BID #0 tabs 05/29/24 insulin glargine 100 unit/mL (3 58 unit (0.58 mL) subcut QPM #0 mL 06/12/24 mL) subcutaneous pen (Lantus Solostar U-100 Insulin) empagliflozin 10 mg tablet 10 mg PO QAM #90 tabs 07/12/24 (Jardiance) Allergies Allergy/AdvReac Type Severity Reaction Status Date / Time gabapentin Allergy Unknown Unverified 08/18/24 15:10 pantoprazole Allergy Unknown Unverified 08/18/24 15:10 semaglutide (From Ozempic) Allergy Unknown Unverified 08/18/24 15:10 General Stated Complaint: AMS/LOC ZARIA: 2 Review of Systems Narrative: Remainder of review of systems otherwise unobtainable due to patient's condition and poor historian. Exam Narrative Exam Narrative: General: non-toxic, no respiratory distress, comfortable HEENT: normocephalic, atraumatic, lids and lashes normal, PERRL, EOMI, anicteric sclera, no conjunctival injection, moist oral mucosa Card: Irregularly irregular, tachycardic, S1S2, no murmurs, rubs, or gallops Lungs: Decreased air exchange,, clear to auscultation bilaterally. no wheezes, rales, rhonchi, or retractions Abd: soft, non-tender, non-distended, normal bowel sounds, no rebound or guarding, no peritoneal signs Musculoskeletal: No vertebral tenderness, pelvis stable, well-healed midline incision left anterior knee, small abrasion over knee, full range of motion of arms and legs, no tenderness to palpation. no clubbing or cyanosis, bilateral lower extremity edema and edema to hands bilaterally Neurologic: GCS of 15, cranial nerves 2 through 12 intact, speech normal, sensation intact, appropriate for age, strength normal Psych: alert and oriented Skin: As above, otherwise no petechiae, no lesions, warm and dry Course Vital Signs Vital signs: Vital Signs Pulse 165 H 08/18/24 12:55 Respiratory Rate 18 08/18/24 12:55 Blood Pressure 114/83 08/18/24 12:55 Pulse 165 H 08/18/24 12:55 Respiratory Rate 18 08/18/24 12:55 Blood Pressure 114/83 08/18/24 12:55 Oxygen Delivery Method Nasal Cannula 08/18/24 12:55 Oxygen Flow Rate 2 08/18/24 12:55 Lab/Test Results Lab/Test Results: 08/18/24 13:00 Blood Blood Culture - Pending 08/18/24 13:00 Blood Blood Culture - Pending Medical Decision Making 78-year-old female with history of atrial fibrillation, COPD, asthma, HFpEF, and prior urinary tract infections with sepsis presents for evaluation after unwitnessed fall. Upon ED arrival patient was found to be in rapid atrial fibrillation. She is a poor historian and may be somewhat altered. On review of her MAR she has not taken any of her medications for the last 5 days. This does include her cardiac medications and blood thinner. EKG does show atrial fibrillation with rapid ventricular response. Will check CTs, laboratory studies, give IV Cardizem. Patient without significant improvement after 2 IV bolus doses of Cardizem. Cardizem drip was initiated. Laboratory studies show hypokalemia. IV potassium replacement was ordered. Straight cath urine is obtained and shows leukocytes and packed bacteria. Urine culture is pending. On review of prior urine microscopy patient with Enterococcus in urine which responded to vancomycin. Given elevated lactic acid and symptoms IV ceftriaxone and IV vancomycin were ordered. Patient does have elevated BNP however the it is lower than prior. IV fluids were held despite elevated lactic acid as clinically patient is fluid overloaded. She is not hypotensive. CT head and cervical spine are unremarkable. CT chest abdomen pelvis shows pleural effusion as well as likely pneumonia. Patient will require admission for monitoring and further treatment. Case discussed with Dr. Alvarado, hospitalist who will admit to their service. CRITICAL CARE Total critical care time: 40 minutes Critical care concerns: Rapid atrial fibrillation, elevated lactic acid, UTI Critical care interventions: IV Cardizem bolus x 2, Cardizem drip, IV antibiotics, record review, hospitalist auscultation Total critical care time included the assessment and discussions as described in the emergency department history, physical, and medical decision making. The critical care time provided excludes separately billable procedures. Quality:SDOH Health Related Social Needs: Health related social needs housing instability, housed, with risk of homelessness (Z59.811), education (Z55.6) PFSH All Active Problems (Updated 08/18/24 @ 15:26 by Tasia Flores MD) Pneumonia (Acute) Pleural effusion (Acute) Elevated lactic acid level (Acute) Acute UTI (Acute) Congestive heart failure (Chronic) Fall (Acute) Hypomagnesemia (Acute) Acute hypokalemia (Acute) Atrial fibrillation with RVR (Acute) Left shoulder pain (Acute) Severe sepsis (Acute) Sepsis (Acute) Need for home health care (Acute) ACP (advance care planning) (Acute) Palliative care encounter (Acute) Heart failure with preserved ejection fraction (HFpEF, >= 50%) (Acute) Decubitus ulcer of sacral region (Acute) NTAHAN (obstructive sleep apnea) (Chronic) Yeast infection of the skin (Acute) Respiratory failure (Acute) Asthma (Chronic) Elevated BUN (Acute) Atrial fibrillation with rapid ventricular response (Acute) COPD (chronic obstructive pulmonary disease) (Acute) Chronic obstructive pulmonary disease with (acute) exacerbation (Acute) Medical History Class 3 obesity Chronic respiratory failure with hypercapnia CKD (chronic kidney disease) stage 3, GFR 30-59 ml/min Atrial fibrillation Type 2 diabetes mellitus without complications HTN (hypertension) Depressive disorder GERD (gastroesophageal reflux disease) Cardiac pacemaker in situ placed 04/22/2022 in [place]. [facility] ZURITA [id number] SERIAL # [id number] RH ENTERED 04/17/24 Loose left total knee arthroplasty Contusion of toe, left Dermal mycosis Thyroid nodule Diabetic peripheral neuropathy Vitamin D deficiency Hyperparathyroidism HLD (hyperlipidemia) Anemia Leukocytosis Cellulitis Stress incontinence Diabetes Anxiety Surgical History S/P AVR replaced with bovine valve Hx of CABG Family History Father Bone cancer Mother Myocardial infarction Brother Myocardial infarction Social History Smoking/Tobacco Use Status: Former Tobacco Use Smoking risk assessment performed?: Yes Alcohol Intake: never Drug use: Never Substance use type: does not use Housing: correction Do you feel safe at home: Yes Do you feel safe in your relationship?: Yes Additional Social history: at [facility]
[2024-08-18] MEDS: dilTIAZem 25 MG/5 ML VIAL 15 MG IVP (13:07)
[2024-08-18 13:14] LABS: Lactate 2.9 mmol/L (<or=2.0)
[2024-08-18 13:17] LABS: Abs Immature Grans 0.05 10^3/uL (0.0-0.06); Absolute Basophil Count 0.07 10^3/uL (0.0-0.2); Absolute Eosinophil Count 0.13 10^3/uL (0.0-0.7); Absolute Monocyte Count 0.66 10^3/uL (0.1-0.8); Absolute Neutrophil Count 8.81 10^3/uL (1.2-6.7); Basophils % 0.7 %; Eosinophils % 1.2 %; HCT 36.8 % (36.0-46.0); Immature Grans % 0.5 %; Lymphocytes % 7.6 %; MCH 26.9 pg (27.0-33.0); MCHC 29.9 % (32.0-36.0); MCV 90 fL (80-95); MPV 11.2 fL (8.0-11.0); Monocytes % 6.3 %; Neutrophils % 83.7 %; Platelet Count 266 10^3/uL (130-400); RBC 4.09 10^6/uL (3.93-5.22); RDW-SD 54.6 fL; WBC 10.52 10^3/uL (4.4-10.8)
[2024-08-18 13:30] LABS: Creatine Kinase 50 U/L (26-192)
[2024-08-18 13:38] LABS: ALT 20 U/L (14-59); AST 21 U/L (15-37); Albumin 2.5 g/dL (3.4-5.0); Alkaline Phosphatase 147 U/L (46-116); Anion Gap 3.8 mmol/L (3-11); BUN 23 mg/dL (7-18); Bilirubin, Total 1.5 mg/dL (0.2-1.0); CO2 36.2 mmol/L (21.0-32.0); CREATININE 1.4 mg/dL (0.55-1.02); Calcium 8.9 mg/dL (8.5-10.1); Chloride 104 mmol/L (98-107); Estimated GFR 38.51 (mL/min/1.73m2); Glucose 265 mg/dL (74-106); Magnesium 1.6 mg/dL (1.8-2.4); NT-proBNP 6971 pg/mL (<300); Sodium 144 mmol/L (136-145); Total Protein 6.8 g/dL (6.4-8.2); Troponin I 32 ng/L (<or=51)
[2024-08-18 13:40] LABS: Potassium 2.9 mmol/L (3.5-5.1)
[2024-08-18] MEDS: dilTIAZem 25 MG/5 ML VIAL 20 MG IVP (13:44)
[2024-08-18 14:40] LABS: Troponin I 38 ng/L (<or=51)
[2024-08-18 14:44] LABS: Bilirubin Negative (Negative); Blood Negative (Negative); Clarity Cloudy (Clear); Glucose 500 mg/dL (Negative); Ketones Negative (Negative); Leukocyte Esterase Large (Negative); Nitrite Negative (Negative)
[2024-08-18] MEDS: MAGNESIUM SULFATE 1 GM/100 ML BAG IV_INF (14:51)
[2024-08-18] MEDS: POTASSIUM CHLORIDE 20 MEQ/100 ML BAG 50 MEQ IV_INF (14:52)
[2024-08-18 14:54] LABS: Bacteria Packed HPF (Negative); Epithelial Cells Rare HPF (Negative); Other Cells Rare Transitional (Negative); RBC 0-2 HPF (0-2)
[2024-08-18 14:55] LABS: C & S Indicated? Yes; Casts Negative LPF (Negative); Crystals Negative HPF (Negative); Mucus Negative (Negative)
[2024-08-18] MEDS: dilTIAZem 125 MG in Normal Saline 100 ML IV (15:31)
[2024-08-18] MEDS: cefTRIAXone 1 GM/50 ML BAG IVPB (15:35)
--- NOTE | 2024-08-18 16:17 | W.PM.HP.N ---
Date of service: 08/18/24 Time of Service: 16:17 Assessment and Plan Assessment and plan (1) Atrial fibrillation with rapid ventricular response: Status: Acute Assessment and plan: continue with cardizem drip and will restart her oral bb and ccb. Pt has not taken her meds in appx 5 days Pt on eliquis (2) Heart failure with preserved ejection fraction (HFpEF, >= 50%): Status: Acute Assessment and plan: c/w medical management including diuretics/bb/jardiance. I'm not seeing an corwin/arb so will add this as well. Will look at her last dc summary to see if this was prescribed at dc (3) Acute hypokalemia: Status: Acute Assessment and plan: c/w replacement and check labs in am. Will change lasix to aldactone. Recheck labs in am (4) Hypomagnesemia: Assessment and plan: cw oral replacement (5) Acute UTI: Status: Acute Assessment and plan: cw vancomycin. Urine cultures drawn and pending. Recent urine culture shows enterococcus with suceptibility to vanc (07/17/24) (6) Sepsis: Status: Acute Assessment and plan: Will give IVF but at a reduced rate 2/2 CHF and the fact that the pt has not been taking her meds (7) Left shoulder pain: Status: Acute Assessment and plan: noted on last admission. Continue with PT (8) Chronic obstructive pulmonary disease with (acute) exacerbation: Status: Acute Assessment and plan: c/w inhalers. Will not add steroids as pt is doing well from a respiratory stand point and is a diabetic (9) Pleural effusion: Status: Acute Assessment and plan: Will consult GS in am to see if a thoracentesis would be appropriate (10) NATHAN (obstructive sleep apnea): Status: Chronic Assessment and plan: c/w cpap (11) Cardiac pacemaker in situ: Assessment and plan: noted (12) HLD (hyperlipidemia): Assessment and plan: c/w statin (13) HTN (hypertension): Assessment and plan: normotensive, will monitor (14) Depressive disorder: Assessment and plan: cw medical management (15) Diabetes: Assessment and plan: cw jardiance/long acting insulin and novolog. Will add corwin (16) Thyroid nodule: Assessment and plan: will order thyroid usn (17) S/P AVR: Assessment and plan: noted (18) Hx of CABG: Assessment and plan: noted History of Present Illness History of Present Illness Chief Complaint: weakness Narrative: This is a 78-year-old female who was recently in the hospital between 07/17 and 07/26 for UTI, CHF exacerbation, and a COPD exacerbation. Per report the patient had been not taking her medications for the last 5 or 6 days for an unknown reason. This morning she had her breakfast and then when the staff at her long-term facility came to see her at lunch she was on the floor and could not get up. At that time the patient was transferred over here for further evaluation and treatment. While in the ED she did get essentially rossi scanned including a CT of her chest abdomen pelvis head and an x-ray. CT scan was indicative of a pleural effusion and enlarged bladder and a right sided thyroid mass. Labs did indicate an elevation in her BNP at 6971. Her CMP was notable for potassium of 2.9 and her mag was 1.6 both below normal limits. Patient's white count was within normal limits. In terms of her vital signs she was tachycardic at 134. EKG showed A-fib with RVR. Patient was initiated on Cardizem drip. Urinalysis was indicative of both UTI as well as glucose urea. The patient was started on Cipro as well as vancomycin. Review of Systems All systems reviewed & are unremarkable except as noted in HPI and below PFSH All Active Problems (Updated 08/18/24 @ 16:28 by Andre Alvarado MD) Pneumonia (Acute) Pleural effusion (Acute) Elevated lactic acid level (Acute) Acute UTI (Acute) Congestive heart failure (Chronic) Fall (Acute) Acute hypokalemia (Acute) Atrial fibrillation with RVR (Acute) Left shoulder pain (Acute) Severe sepsis (Acute) Sepsis (Acute) Need for home health care (Acute) ACP (advance care planning) (Acute) Palliative care encounter (Acute) Heart failure with preserved ejection fraction (HFpEF, >= 50%) (Acute) Decubitus ulcer of sacral region (Acute) NATHAN (obstructive sleep apnea) (Chronic) Yeast infection of the skin (Acute) Respiratory failure (Acute) Asthma (Chronic) Elevated BUN (Acute) Atrial fibrillation with rapid ventricular response (Acute) COPD (chronic obstructive pulmonary disease) (Acute) Chronic obstructive pulmonary disease with (acute) exacerbation (Acute) Medical History (Updated 08/18/24 @ 16:28 by Andre Alvarado MD) Hypomagnesemia Hypokalemia Class 3 obesity Chronic respiratory failure with hypercapnia CKD (chronic kidney disease) stage 3, GFR 30-59 ml/min Atrial fibrillation Type 2 diabetes mellitus without complications HTN (hypertension) Depressive disorder GERD (gastroesophageal reflux disease) Cardiac pacemaker in situ placed 04/22/2022 in [place]. [employer] Lottie ZURITA [id number] SERIAL # [id number] RH ENTERED 04/17/24 Loose left total knee arthroplasty Contusion of toe, left Dermal mycosis Thyroid nodule Diabetic peripheral neuropathy Vitamin D deficiency Hyperparathyroidism HLD (hyperlipidemia) Anemia Leukocytosis Cellulitis Stress incontinence Diabetes Anxiety Surgical History S/P AVR replaced with bovine valve Hx of CABG Family History Father Bone cancer Mother Myocardial infarction Brother Myocardial infarction Social History Smoking/Tobacco Use Status: Former Tobacco Use Smoking risk assessment performed?: Yes Alcohol Intake: never Drug use: Never Substance use type: does not use Housing: skilled nursing Do you feel safe at home: Yes Do you feel safe in your relationship?: Yes Additional Social history: at [facility] Med Allergies and Home Medications Allergies Allergy/AdvReac Type Severity Reaction Status Date / Time gabapentin Allergy Unknown Unverified 08/18/24 15:10 pantoprazole Allergy Unknown Unverified 08/18/24 15:10 semaglutide (From Ozempic) Allergy Unknown Unverified 08/18/24 15:10 Home Medications ?Medication ?Instructions ?Recorded ?Confirmed ?Type apixaban 5 mg tablet (Eliquis) 5 mg PO BID 12/19/23 08/18/24 History atorvastatin 80 mg tablet 80 mg PO DAILY 12/19/23 08/18/24 History duloxetine 30 mg capsule,delayed 30 mg PO QPM 12/19/23 08/18/24 History release famotidine 20 mg tablet 20 mg PO DAILY 12/19/23 08/18/24 History trazodone 50 mg tablet 50 mg PO HS 12/19/23 08/18/24 History sucralfate 1 gram tablet 1 g PO QID 04/09/24 08/18/24 History diltiazem HCl 240 mg 240 mg PO DAILY #90 caps 04/30/24 08/18/24 Rx capsule,extended release 24 hr furosemide 40 mg tablet 40 mg PO BID #0 tabs 05/29/24 08/18/24 Rx insulin aspart U-100 100 unit/mL 10 unit subcut TID 06/10/24 08/18/24 History (3 mL) subcutaneous pen (Novolog FlexPen U-100 Insulin aspart) insulin glargine 100 unit/mL (3 58 unit (0.58 mL) subcut QPM #0 mL 06/12/24 08/18/24 Rx mL) subcutaneous pen (Lantus Solostar U-100 Insulin) bimatoprost 0.01 % eye drops 1 drp ophthalmic (eye) QPM 07/08/24 08/18/24 History (Ellenigan) multivitamin (Daily Multi-Vitamin 1 tab PO DAILY 07/08/24 08/18/24 History tablet) tiotropium 2.5 mcg-olodaterol 2.5 2 inh inhalation DAILY 07/08/24 08/18/24 History mcg/actuation mist for inhalation (Stiolto Respimat) empagliflozin 10 mg tablet 10 mg PO QAM #90 tabs 07/12/24 08/18/24 Rx (Jardiance) metoprolol tartrate 100 mg tablet 100 mg PO DAILY 07/18/24 08/18/24 History metoprolol tartrate 25 mg tablet 25 mg PO DAILY 08/18/24 08/18/24 History Exam Narrative Exam Narrative: HEENT: Normocephalic atraumatic mucous memories moist oropharynx clear extract motions are intact Neck: No lymphadenopathy no JVD no thyromegaly Cardiovascular: Irregularly irregular rhythm tachycardic Lungs: Clear to auscultation bilaterally no accessory muscle use speaking in complete sentences Abdomen: Protuberant bowel sounds active x 4 Extremity: 2+ lower extremity edema bilaterally up to the mid calves Psych: Patient is alert and oriented to person place year and age Neuro: Cranial nerves II through XII intact as tested reflexes in upper extremity normal as tested Patient does have fairly significant presbycusis Results Labs 08/18/24 13:00 08/18/24 13:00 Labs: Laboratory Results - last 24 hr 0508/18/24 08/18/24 13:00 14:16 14:30 WBC 10.52 RBC 4.09 Hgb 11.0 L Hct 36.8 MCV 90 MCH 26.9 L MCHC 29.9 L RDW 17.0 H Plt Count 266 MPV 11.2 H Immature Gran % 0.5 Neutrophils % 83.7 Lymphocytes % 7.6 Monocytes % 6.3 Eosinophils % 1.2 Basophils % 0.7 Nucleated RBC % 0.0 Absolute Neutrophils 8.81 H Absolute Lymphocytes 0.80 L Absolute Monocytes 0.66 Absolute Eosinophils 0.13 Absolute Basophils 0.07 VBG Lactate 2.9 H* Sodium 144 Potassium 2.9 L* Chloride 104 Carbon Dioxide 36.2 H Anion Gap 3.8 BUN 23 H Creatinine 1.4 H Est GFR (CKD-EPI 2020) 38.51 Glucose 265 H Calcium 8.9 Magnesium 1.6 L Total Bilirubin 1.5 H AST 21 ALT 20 Alkaline Phosphatase 147 H Creatine Kinase 50 Troponin I 32 38 NT-Pro-B Natriuret Pep 6971 H Total Protein 6.8 Albumin 2.5 L Urine Color Yellow Urine Clarity Cloudy Urine pH 6.0 Ur Specific [place] 1.020 Urine Protein 100 H Urine Ketones Negative Urine Blood Negative Urine Nitrite Negative Urine Bilirubin Negative Urine Urobilinogen 1.0 H Ur Leukocyte Esterase Large H Urine RBC 0-2 Urine WBC 10-20 H Ur Epithelial Cells Rare Urine Crystals Negative Urine Bacteria Packed Urine Casts Negative Urine Mucus Negative Urine Other Rare Transitional Ur Culture Indicated? Yes Urine Glucose 500 H Last Vital Signs Pulse 43 L 08/18/24 16:12 Resp 18 08/18/24 16:15 BP 126/77 08/18/24 16:12 Pulse Ox 100 08/18/24 16:12 Time Spent Time spent with Patient: 55-74 minutes Time was spent: preparing to see the patient(eg.review tests), obtaining and/or reviewing separately otained hiistory, ordering medications,tests, procedures, referring, communicating with other health caregiver services home, indepentently interpreting results, counseling the patient and care coordination
[2024-08-18 16:19] LABS: Lactate 2.1 mmol/L (<or=2.0)
[2024-08-18] MEDS: VANCOMYCIN/WATER (PEG) 2 GM/400 ML BAG IV (16:26)
[2024-08-18 16:31] LABS: COVID-19 PCR Negative (Negative); Influenza A PCR Negative (Negative); Influenza B PCR Negative (Negative); RSV PCR Negative (Negative)
[2024-08-18 16:32] LABS: Source Nasopharynx
[2024-08-18 16:37] LABS: Troponin I 45 ng/L (<or=51)
--- NOTE | 2024-08-18 17:33 | W.PC.ACHO ---
Registration Status: Primary Language: Preferred Language: ED Information & Data Chief Complaint AMS/LOC 08/18/24 15:23 Chief Complaint AMS/LOC 08/18/24 13:12 Other Complaint Orthopedic 08/18/24 12:55 Triage Note pain in right knee after 08/18/24 12:55 fall found on the floor at [facility] was on floor for unknown amount of time Medical / Surgical History (Last Updated 08/18/24 @ 16:28 by Andre Alvarado MD) Hypomagnesemia Hypokalemia Class 3 obesity Chronic respiratory failure with hypercapnia CKD (chronic kidney disease) stage 3, GFR 30-59 ml/min Atrial fibrillation Type 2 diabetes mellitus without complications HTN (hypertension) Depressive disorder GERD (gastroesophageal reflux disease) Cardiac pacemaker in situ Loose left total knee arthroplasty Contusion of toe, left Dermal mycosis Thyroid nodule Diabetic peripheral neuropathy Vitamin D deficiency Hyperparathyroidism HLD (hyperlipidemia) Anemia Leukocytosis Cellulitis Stress incontinence Diabetes Anxiety (Last Reviewed 08/18/24 @ 13:09 by Tasia Flores MD) S/P AVR Hx of CABG Most Recent Vital Signs Pulse 98 H 08/18/24 17:11 Pulse 119 H 08/18/24 17:11 Respiratory Rate 21 08/18/24 17:11 Respiratory Effort Normal, Non-Labored 08/18/24 16:15 Respiratory Depth Normal 08/18/24 16:15 Respiratory Pattern Normal 08/18/24 16:15 Blood Pressure 106/88 08/18/24 16:51 Blood Pressure Mean 148 08/18/24 17:11 Pulse Oximetry 87 L 08/18/24 17:11 Oxygen Delivery Method Nasal Cannula 08/18/24 12:55 Oxygen Flow Rate 2 08/18/24 12:55 Allergies gabapentin Allergy (Unverified 08/18/24 15:10) Unknown pantoprazole Allergy (Unverified 08/18/24 15:10) Unknown semaglutide (From Ozempic) Allergy (Unverified 08/18/24 15:10) Unknown Precautions Isolation Standard precaution 08/18/24 15:23 Active Medications Generic Name Dose Route Start Last Admin Trade Name Freq PRN Reason Stop Dose Admin Diltiazem HCl 125 mg/ Sodium 125 mls @ 0 mls/hr 08/18/24 14:00 08/18/24 16:25 Chloride IV 10 mls/hr INFUSION RONALD 10 mls/hr Titration Protocol Titrate IV IV Catheter Type [Left Forearm Peripheral IV ] IV Catheter Type [Right Saline Lock Antecubital] IV Catheter Gauge [Left 18 Forearm] IV Catheter Gauge [Right 20 Antecubital] Diet Orders Category Date Time Status Diabetes Consistent CHO [DIET] Nutrition 08/18/24 Dinner Active Diagnostics 08/18/24 08/18/24 08/18/24 Range/Units 16:12 14:30 14:16 WBC (4.4-10.8) 10^3/uL RBC (3.93-5.22) 10^6/uL Hgb (11.2-15.7) g/dL Hct (36.0-46.0) % MCV (80-95) fL MCH (27.0-33.0) pg MCHC (32.0-36.0) % RDW (11.7-14.6) % Plt Count (130-400) 10^3/uL MPV (8.0-11.0) fL Immature Gran % % Neutrophils % % Lymphocytes % % Monocytes % % Eosinophils % % Basophils % % Nucleated RBC % (0.0-0.3) % Absolute Neutrophils (1.2-6.7) 10^3/uL Absolute Lymphocytes (1.2-3.4) 10^3/uL Absolute Monocytes (0.1-0.8) 10^3/uL Absolute Eosinophils (0.0-0.7) 10^3/uL Absolute Basophils (0.0-0.2) 10^3/uL VBG Lactate 2.1 (<or=2.0) mmol/L Sodium (136-145) mmol/L Potassium (3.5-5.1) mmol/L Chloride (98-107) mmol/L Carbon Dioxide (21.0-32.0) mmol/L Anion Gap (3-11) mmol/L BUN (7-18) mg/dL Creatinine (0.55-1.02) mg/dL Est GFR (CKD-EPI 2020) (mL/min/1.73m2) Glucose (74-106) mg/dL Calcium (8.5-10.1) mg/dL Magnesium (1.8-2.4) mg/dL Total Bilirubin (0.2-1.0) mg/dL AST (15-37) U/L ALT (14-59) U/L Alkaline Phosphatase (46-116) U/L Creatine Kinase (26-192) U/L Troponin I 45 38 (<or=51) ng/L NT-Pro-B Natriuret Pep (<300) pg/mL Total Protein (6.4-8.2) g/dL Albumin (3.4-5.0) g/dL Urine Color Yellow (Yellow) Urine Clarity Cloudy (Clear) Urine pH 6.0 (5-8) Ur Specific [place] 1.020 (1.005-1.025) Urine Protein 100 H (Neg-Trace) mg/dL Urine Ketones Negative (Negative) mg/dL Urine Blood Negative (Negative) Urine Nitrite Negative (Negative) Urine Bilirubin Negative (Negative) Urine Urobilinogen 1.0 H (Up to 0.2) mg/dL Ur Leukocyte Esterase Large H (Negative) Urine RBC 0-2 (0-2) HPF Urine WBC 10-20 H (0-5) HPF Ur Epithelial Cells Rare (Negative) HPF Urine Crystals Negative (Negative) HPF Urine Bacteria Packed (Negative) HPF Urine Casts Negative (Negative) LPF Urine Mucus Negative (Negative) Urine Other Rare Transitional (Negative) Ur Culture Indicated? Yes Urine Glucose 500 H (Negative) mg/dL COVID-19 Source SARS-CoV-2 (PCR) (Negative) Influenza Type A (PCR) (Negative) Influenza Type B (PCR) (Negative) RSV (PCR) (Negative) 08/18/24 08/18/24 Range/Units 13:50 13:00 WBC 10.52 (4.4-10.8) 10^3/uL RBC 4.09 (3.93-5.22) 10^6/uL Hgb 11.0 L (11.2-15.7) g/dL Hct 36.8 (36.0-46.0) % MCV 90 (80-95) fL MCH 26.9 L (27.0-33.0) pg MCHC 29.9 L (32.0-36.0) % RDW 17.0 H (11.7-14.6) % Plt Count 266 (130-400) 10^3/uL MPV 11.2 H (8.0-11.0) fL Immature Gran % 0.5 % Neutrophils % 83.7 % Lymphocytes % 7.6 % Monocytes % 6.3 % Eosinophils % 1.2 % Basophils % 0.7 % Nucleated RBC % 0.0 (0.0-0.3) % Absolute Neutrophils 8.81 H (1.2-6.7) 10^3/uL Absolute Lymphocytes 0.80 L (1.2-3.4) 10^3/uL Absolute Monocytes 0.66 (0.1-0.8) 10^3/uL Absolute Eosinophils 0.13 (0.0-0.7) 10^3/uL Absolute Basophils 0.07 (0.0-0.2) 10^3/uL VBG Lactate 2.9 H* (<or=2.0) mmol/L Sodium 144 (136-145) mmol/L Potassium 2.9 L* (3.5-5.1) mmol/L Chloride 104 (98-107) mmol/L Carbon Dioxide 36.2 H (21.0-32.0) mmol/L Anion Gap 3.8 (3-11) mmol/L BUN 23 H (7-18) mg/dL Creatinine 1.4 H (0.55-1.02) mg/dL Est GFR (CKD-EPI 2020) 38.51 (mL/min/1.73m2) Glucose 265 H (74-106) mg/dL Calcium 8.9 (8.5-10.1) mg/dL Magnesium 1.6 L (1.8-2.4) mg/dL Total Bilirubin 1.5 H (0.2-1.0) mg/dL AST 21 (15-37) U/L ALT 20 (14-59) U/L Alkaline Phosphatase 147 H (46-116) U/L Creatine Kinase 50 (26-192) U/L Troponin I 32 (<or=51) ng/L NT-Pro-B Natriuret Pep 6971 H (<300) pg/mL Total Protein 6.8 (6.4-8.2) g/dL Albumin 2.5 L (3.4-5.0) g/dL Urine Color (Yellow) Urine Clarity (Clear) Urine pH (5-8) Ur Specific [place] (1.005-1.025) Urine Protein (Neg-Trace) mg/dL Urine Ketones (Negative) mg/dL Urine Blood (Negative) Urine Nitrite (Negative) Urine Bilirubin (Negative) Urine Urobilinogen (Up to 0.2) mg/dL Ur Leukocyte Esterase (Negative) Urine RBC (0-2) HPF Urine WBC (0-5) HPF Ur Epithelial Cells (Negative) HPF Urine Crystals (Negative) HPF Urine Bacteria (Negative) HPF Urine Casts (Negative) LPF Urine Mucus (Negative) Urine Other (Negative) Ur Culture Indicated? Urine Glucose (Negative) mg/dL COVID-19 Source Nasopharynx SARS-CoV-2 (PCR) Negative (Negative) Influenza Type A (PCR) Negative (Negative) Influenza Type B (PCR) Negative (Negative) RSV (PCR) Negative (Negative) 08/18/24 14:30 Urine Culture - Pending Urine - Reflex from Ua 08/18/24 13:23 Blood Culture - Pending Blood 08/18/24 13:23 Blood Culture - Pending Blood Intake and Output - 24 Hour Total 08/18/24 12:38 thru 08/18/24 16:52 Intake Total 264.5 Balance 264.5 Weight 113.67 kg Intake: IV 264.5 Other: Urine Color Yellow Urine Appearance Cloudy Urinary Catheter Urinary Catheter Date of 08/18/24 Insertion [Urethral (Johnson)] Time of insertion [Urethral ( 14:30 Johnson)] Falls Risk Assessment History of Falls Admit Due to Fall 08/18/24 15:23 Contributing Factors Confusion,Unstable, 08/18/24 15:23 Impairments,Incontinence, Medications Ambulatory Aids Uses ambulatory device + 08/18/24 15:23 Tubes/Lines With any additional score 08/18/24 15:23 Gait Evaluation W/any additional score 08/18/24 15:23 Fall Total Score 110 08/18/24 15:23 Level of Risk Maximum Risk 08/18/24 15:23 Problems (Last Updated 08/18/24 @ 16:28 by Andre Alvarado MD) Pneumonia (Acute) Pleural effusion (Acute) Elevated lactic acid level (Acute) Acute UTI (Acute) Congestive heart failure (Chronic) Fall (Acute) Acute hypokalemia (Acute) Atrial fibrillation with RVR (Acute) Left shoulder pain (Acute) Sepsis (Acute) Heart failure with preserved ejection fraction (HFpEF, >= 50%) (Acute) NATHAN (obstructive sleep apnea) (Chronic) Atrial fibrillation with rapid ventricular response (Acute) Chronic obstructive pulmonary disease with (acute) exacerbation (Acute) v v v v v v v v v Sending and/or Receiving Nurses: Please use comment section below to note any information pertinent to the patient hand-off not included above. Information / Comments: Report received from: Nguyen Michelle RN
[2024-08-18] MEDS: dilTIAZem 30 MG TAB PO (20:02)
[2024-08-18] MEDS: Sucralfate 1 GM TAB PO (20:03)
[2024-08-18] MEDS: DULoxetine 30 MG CAP PO (20:03)
[2024-08-18] MEDS: traZODone 50 MG TAB PO (20:03)
[2024-08-18] MEDS: Apixaban 5 MG TAB PO (20:03)
[2024-08-18] MEDS: Potassium Chloride 20 MEQ TABCR PO (20:03)
[2024-08-18] MEDS: Magnesium Oxide 400 MG TAB PO (20:03)
[2024-08-18] MEDS: Normal Saline Flush 10 ML SYR IVP (20:04)
--- NOTE | 2024-08-18 20:36 | TELEP.MEDR_ITS ---
Date of service: 08/18/24 Time of Service: 20:36 Telepharmacy Home Med Rec Allergies Allergies: gabapentin Allergy (Unverified 08/18/24 15:10) Unknown pantoprazole Allergy (Unverified 08/18/24 15:10) Unknown semaglutide (From Ozempic) Allergy (Unverified 08/18/24 15:10) Unknown Interview Person Interviewed: LAURA from [facility] Quality Quality of Interview/Accuracy of Medication List: Excellent Sources Sources used to compile medication list: MAR Changes made to Home Medication List: ADDITIONS: * Bisacodyl 10mg [place] daily prn * Milk of Magnesium 30mL po daily prn * Miralax 17g po daily prn * Fleet enema [place] daily prn DELETIONS: None CHANGES: None Additional Notes Additional Notes: Updated med list with information from previous facility MAR. Recommended Changes Recommended Changes(reason for recommendation): None Attestation: The home medication list is now updated to the best of my knowledge and is ready to be reconciled by the provider. Please contact the TelePharmacy Medication Reconciliation Pharmacist at for any questions.
[2024-08-18] MEDS: Normal Saline 500 ML IV (22:44)
[2024-08-19] VITALS (113 sets, daily range): BP systolic 85–133; BP diastolic 59–93; PULSE 53–146; RESP 5–36; TEMP 36.6–36.8; O2SAT 86–99
--- NOTE | 2024-08-19 | DI.US_ITS ---
Exam(s) US THYROID EXAM: US THYROID CLINICAL HISTORY: nodule. TECHNIQUE: Ultrasound thyroid performed using standard protocol. COMPARISON: CT CT CHEST/ABD/PEL WO from 08/18/[address] THORACIC LUMBAR SPINE REC from 08/18/2024 FINDINGS: Limited exam due to body habitus and patient's ability inability to breath hold. ISTHMUS: 7 mm RIGHT LOBE: Size: 5.1 x 2.6 x 2.3 cm Echogenicity: Normal. Vascularity: Normal. Nodules: 2.2 x 1.5 x 1.9 centimeter solid isoechoic nodule at the lower pole which contains punctate echogenic foci. TR 4. FNA recommended due to size. LEFT LOBE: Size: 4.7 x 2.8 x 2.8 cm Echogenicity: Normal. Vascularity: Normal. Nodules: None. OTHER FINDINGS: None. IMPRESSION: 2.2 cm TR 4 nodule lower pole of the right lobe of the thyroid. FNA recommended. DATA REPOSITORY:
[2024-08-19] MEDS: dilTIAZem 30 MG TAB PO (01:37)
[2024-08-19] MEDS: dilTIAZem 125 MG in Normal Saline 100 ML 10 MG IV ×2 (04:14→23:12)
[2024-08-19 06:36] LABS: HCT 33.9 % (36.0-46.0); HGB 10.2 g/dL (11.2-15.7); MCH 27.1 pg (27.0-33.0); MCHC 30.1 % (32.0-36.0); MCV 90 fL (80-95); Platelet Count 254 10^3/uL (130-400); RBC 3.77 10^6/uL (3.93-5.22); RDW 16.2 % (11.7-14.6); RDW-SD 52.8 fL; WBC 8.81 10^3/uL (4.4-10.8)
[2024-08-19 06:54] LABS: Magnesium 1.8 mg/dL (1.8-2.4)
[2024-08-19 06:58] LABS: ALT 16 U/L (14-59); AST 21 U/L (15-37); Albumin 2.3 g/dL (3.4-5.0); Alkaline Phosphatase 127 U/L (46-116); Anion Gap 7.3 mmol/L (3-11); BUN 19 mg/dL (7-18); Bilirubin, Total 1.1 mg/dL (0.2-1.0); CO2 34.7 mmol/L (21.0-32.0); CREATININE 1.1 mg/dL (0.55-1.02); Calcium 8.7 mg/dL (8.5-10.1); Chloride 103 mmol/L (98-107); Estimated GFR 51.43 (mL/min/1.73m2); Glucose 118 mg/dL (74-106); Potassium 3.1 mmol/L (3.5-5.1); Sodium 145 mmol/L (136-145); Total Protein 6.2 g/dL (6.4-8.2)
--- NOTE | 2024-08-19 08:41 | INITIAL_ITS ---
Date of service: 08/19/24 Time of Service: 08:41 Care Management Initial Assmt Initial Assessment Reason for Hospitalization: s/p fall, UTI, rapid afib Functional Status/Living Situation Patient Presentation: Jessa is living at the [facility]. She had an unwitnessed fall yesterday. She was found to have a UTI and to be in afib with RVR. Jessa was sitting up in the bed when CM met with her today. Jessa is known to this from previous admissions. She was pleasant and quick with a smile. She stated that she is feeling ok. Her HR was noted to still be well over 100, and she stated that she can feel it beating. Jessa stated that she is liking living at [facility], and plans to return there once medically ready. 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) Instrumental Activities of Daily Living (ADLs): Requires support Activities/Hobbies/SocialSupport: Jessa stated that she is enjoying the activities at the [facility] Medications Medication Management: No Issues/Barriers identified Physical Functioning/Mobility Assistive Device: motorized wheel chair/scooter Advance Directives Advance Directives: Do you have an Advance Directive: N 04/10/24 23:24 AD On File at [facility]: N 03/21/24 10:05 Date Asked 07/17/24 07/17/24 13:42 AD Date Reviewed 07/08/24 07/08/24 13:21 COLST On File at [facility] COLST Date Scanned Code Status Resuscitation Status DNR/DNI Insurance Coverage/Financial Issues Insurance: [employer] Medicare Replacement Medicaid of [place] Care Team Visit Care Team Role Provider Type Zeus Hebert Primary Care Provider NON-[facility] STAFF PHYSICIAN Reba Silva Other Providers [employer] TESTER Emilie Toledo Other Providers [employer] TESTER Phuong Ndiaye Other Providers [employer] TESTER InPatient Jayesh Ortega Other Providers OTHER Jaclyn Renee RN Other Providers [employer] TESTER Beatriz Alvarado Other Providers [employer] TESTER Tasia Flores MD Emergency Provider [facility] STAFF PHYSICIAN Andre Alvarado MD Admit Provider [facility] STAFF PHYSICIAN Attending Provider Discharge Potential Discharge Needs: PCP F/U Appt Anticipated Barriers to Discharge: None Identified Patient/Family Education Needs: Review discharge instructions, discuss Ask Me Three Transportation: RCT RCT Transportation: Wheel chair van Plan: Anticipate that Jessa will return to [facility] once medically stable. She will transport via RCT wheelchair van. Jessa will f/u with the facility provider and continue per her plan of care. CM will continue to follow. Social Determinants of Health Screening Will the Patient Participate in the Screening?: Unable to obtain PFSH All Active Problems (Updated 08/18/24 @ 17:49 by Avinger) Pneumonia (Acute) Pleural effusion (Acute) Elevated lactic acid level (Acute) Acute UTI (Acute) Congestive heart failure (Chronic) Fall (Acute) Acute hypokalemia (Acute) Atrial fibrillation with RVR (Acute) Left shoulder pain (Acute) Severe sepsis (Acute) Sepsis (Acute) Need for home health care (Acute) ACP (advance care planning) (Acute) Palliative care encounter (Acute) Heart failure with preserved ejection fraction (HFpEF, >= 50%) (Acute) Decubitus ulcer of sacral region (Acute) NATHAN (obstructive sleep apnea) (Chronic) Yeast infection of the skin (Acute) Respiratory failure (Acute) Asthma (Chronic) Elevated BUN (Acute) Atrial fibrillation with rapid ventricular response (Acute) COPD (chronic obstructive pulmonary disease) (Acute) Chronic obstructive pulmonary disease with (acute) exacerbation (Acute) Medical History (Updated 08/18/24 @ 17:49 by [employer]) Hypomagnesemia Hypokalemia Class 3 obesity Chronic respiratory failure with hypercapnia CKD (chronic kidney disease) stage 3, GFR 30-59 ml/min Atrial fibrillation Type 2 diabetes mellitus without complications HTN (hypertension) Depressive disorder GERD (gastroesophageal reflux disease) Cardiac pacemaker in situ placed 04/22/2022 in [place]. 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
[2024-08-19] MEDS: Tiotropium/Olodaterol 10 PUFF INHALER 2 PUFF IH (09:19)
[2024-08-19] MEDS: Atorvastatin 40 MG TAB 80 MG PO (10:21)
[2024-08-19] MEDS: Apixaban 5 MG TAB PO ×2 (10:21→20:38)
[2024-08-19] MEDS: Potassium Chloride 20 MEQ TABCR PO ×2 (10:21→20:38)
[2024-08-19] MEDS: Magnesium Oxide 400 MG TAB PO ×2 (10:21→20:37)
[2024-08-19] MEDS: Multivitamin TAB 1 TAB PO (10:22)
[2024-08-19] MEDS: Normal Saline Flush 10 ML SYR IVP ×3 (10:22→20:38)
[2024-08-19] MEDS: Empaglifozin 10 MG TAB PO (10:22)
[2024-08-19 10:51] LABS: Vancomycin, Random 12.7 ug/mL
[2024-08-19] MEDS: Sucralfate 1 GM TAB PO ×3 (12:33→20:37)
--- NOTE | 2024-08-19 13:16 | PGE_ITS ---
Date of Service Date of service: 08/19/24 Time of Service: 13:16 Assessment and Plan Assessment and plan (1) Atrial fibrillation with rapid ventricular response: Status: Acute Assessment and plan: continue with cardizem drip and will restart her oral bb and ccb. Pt has not taken her meds in appx 5 days Pt on eliquis 08/19/24 Pt still on cardizem drip. I did hold her oral medications. Hopefully with continued abx to help with physiologic stress and some ivf her hr will co under 100 consistently. At any rate, will plan on starting po ccb and bb tomorrow. (2) Heart failure with preserved ejection fraction (HFpEF, >= 50%): Status: Acute Assessment and plan: c/w medical management including diuretics/bb/jardiance. I'm not seeing an corwin/arb so will add this as well. Will look at her last dc summary to see if this was prescribed at dc. 08/19/24 Will start on lisinopril 2.5mg po daily. Pt is 3rd spacing a bit, but also has some dehydration. Fluid balance is challenging (3) Acute hypokalemia: Status: Acute Assessment and plan: c/w replacement and check labs in am. Will change lasix to aldactone. Recheck labs in am 08/19/24 Improving but still low. CW rx. Would hold lasix until electrolytes normalize (4) Hypomagnesemia: Assessment and plan: cw oral replacement (5) Acute UTI: Status: Acute Assessment and plan: cw vancomycin. Urine cultures drawn and pending. Recent urine culture shows enterococcus with suceptibility to vanc (07/17/24) 08/19/24 Will change to cipro at least until cultures are available. (6) Sepsis: Status: Acute Assessment and plan: Will give IVF but at a reduced rate 2/2 CHF and the fact that the pt has not been taking her meds (7) Left shoulder pain: Status: Acute Assessment and plan: noted on last admission. Continue with PT (8) Chronic obstructive pulmonary disease with (acute) exacerbation: Status: Acute Assessment and plan: c/w inhalers. Will not add steroids as pt is doing well from a respiratory stand point and is a diabetic (9) Pleural effusion: Status: Acute Assessment and plan: Will consult GS in am to see if a thoracentesis would be appropriate 08/19/24 Did d/w GS today. Will wait until pt is a little more stable prior to thoracentesis. VSS, so not emergent (10) NATHAN (obstructive sleep apnea): Status: Chronic Assessment and plan: c/w cpap (11) Cardiac pacemaker in situ: Assessment and plan: noted (12) HLD (hyperlipidemia): Assessment and plan: c/w statin (13) HTN (hypertension): Assessment and plan: normotensive, will monitor (14) Depressive disorder: Assessment and plan: cw medical management (15) Diabetes: Assessment and plan: cw jardiance/long acting insulin and novolog. Will add corwin 08/19/24 Will add sliding scale-mod (16) Thyroid nodule: Assessment and plan: will order thyroid usn (17) S/P AVR: Assessment and plan: noted (18) Hx of CABG: Assessment and plan: noted Subjective Subjective Interval history since last seen: Pt seen and examined in her room. Pt states that she is feeling better, denies chest pain, palpitations. POC d/w pt as well as bedside nurse during ICU huddle Exam Narrative Exam Narrative: HEENT: Normocephalic atraumatic mucous memories moist oropharynx clear extract motions are intact Neck: No lymphadenopathy no JVD no thyromegaly Cardiovascular: Irregularly irregular rhythm tachycardic Lungs: Clear to auscultation bilaterally no accessory muscle use speaking in complete sentences Abdomen: Protuberant bowel sounds active x 4 Extremity: 2+ lower extremity edema bilaterally up to the mid calves Psych: Patient is alert and oriented to person place year and age Neuro: Cranial nerves II through XII intact as tested reflexes in upper extremity normal as tested 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 Objective Last Vital Signs Temp 36.7 C 08/19/24 02:01 Pulse 132 H 08/19/24 03:31 Resp 19 08/19/24 03:31 BP 100/80 08/19/24 03:31 Pulse Ox 87 L 08/19/24 08:17 Laboratory Results - last 24 hr 08/18/24 08/18/24 08/18/24 13:00 13:50 14:16 WBC 10.52 RBC 4.09 Hgb 11.0 L Hct 36.8 MCV 90 MCH 26.9 L MCHC 29.9 L RDW 17.0 H Plt Count 266 MPV 11.2 H Immature Gran % 0.5 Neutrophils % 83.7 Lymphocytes % 7.6 Monocytes % 6.3 Eosinophils % 1.2 Basophils % 0.7 Nucleated RBC % 0.0 Absolute Neutrophils 8.81 H Absolute Lymphocytes 0.80 L Absolute Monocytes 0.66 Absolute Eosinophils 0.13 Absolute Basophils 0.07 VBG Lactate Sodium 144 Potassium 2.9 L* Chloride 104 Carbon Dioxide 36.2 H Anion Gap 3.8 BUN 23 H Creatinine 1.4 H Est GFR (CKD-EPI 2020) 38.51 Glucose 265 H Calcium 8.9 Magnesium 1.6 L Total Bilirubin 1.5 H AST 21 ALT 20 Alkaline Phosphatase 147 H Creatine Kinase 50 Troponin I 32 38 NT-Pro-B Natriuret Pep 6971 H Total Protein 6.8 Albumin 2.5 L Urine Color Urine Clarity Urine pH Ur Specific [place] Urine Protein Urine Ketones Urine Blood Urine Nitrite Urine Bilirubin Urine Urobilinogen Ur Leukocyte Esterase Urine RBC Urine WBC Ur Epithelial Cells Urine Crystals Urine Bacteria Urine Casts Urine Mucus Urine Other Ur Culture Indicated? Urine Glucose Random Vancomycin COVID-19 Source Nasopharynx SARS-CoV-2 (PCR) Negative Influenza Type A (PCR) Negative Influenza Type B (PCR) Negative RSV (PCR) Negative 08/18/24 08/18/24 08/19/24 14:30 16:12 06:02 WBC 8.81 RBC 3.77 L Hgb 10.2 L Hct 33.9 L MCV 90 MCH 27.1 MCHC 30.1 L RDW 16.2 H Plt Count 254 MPV 12.0 H Immature Gran % Neutrophils % Lymphocytes % Monocytes % Eosinophils % Basophils % Nucleated RBC % Absolute Neutrophils Absolute Lymphocytes Absolute Monocytes Absolute Eosinophils Absolute Basophils VBG Lactate 2.1 Sodium 145 Potassium 3.1 L Chloride 103 Carbon Dioxide 34.7 H Anion Gap 7.3 BUN 19 H Creatinine 1.1 H Est GFR (CKD-EPI 2020) 51.43 Glucose 118 H Calcium 8.7 Magnesium 1.8 Total Bilirubin 1.1 H AST 21 ALT 16 Alkaline Phosphatase 127 H Creatine Kinase Troponin I 45 NT-Pro-B Natriuret Pep Total Protein 6.2 L Albumin 2.3 L Urine Color Yellow Urine Clarity Cloudy Urine pH 6.0 Ur Specific [place] 1.020 Urine Protein 100 H Urine Ketones Negative Urine Blood Negative Urine Nitrite Negative Urine Bilirubin Negative Urine Urobilinogen 1.0 H Ur Leukocyte Esterase Large H Urine RBC 0-2 Urine WBC 10-20 H Ur Epithelial Cells Rare Urine Crystals Negative Urine Bacteria Packed Urine Casts Negative Urine Mucus Negative Urine Other Rare Transitional Ur Culture Indicated? Yes Urine Glucose 500 H Random Vancomycin COVID-19 Source SARS-CoV-2 (PCR) Influenza Type A (PCR) Influenza Type B (PCR) RSV (PCR) 08/19/24 10:20 WBC RBC Hgb Hct MCV MCH MCHC RDW Plt Count MPV Immature Gran % Neutrophils % Lymphocytes % Monocytes % Eosinophils % Basophils % Nucleated RBC % Absolute Neutrophils Absolute Lymphocytes Absolute Monocytes Absolute Eosinophils Absolute Basophils VBG Lactate Sodium Potassium Chloride Carbon Dioxide Anion Gap BUN Creatinine Est GFR (CKD-EPI 2020) Glucose Calcium Magnesium Total Bilirubin AST ALT Alkaline Phosphatase Creatine Kinase Troponin I NT-Pro-B Natriuret Pep Total Protein Albumin Urine Color Urine Clarity Urine pH Ur Specific [place] Urine Protein Urine Ketones Urine Blood Urine Nitrite Urine Bilirubin Urine Urobilinogen Ur Leukocyte Esterase Urine RBC Urine WBC Ur Epithelial Cells Urine Crystals Urine Bacteria Urine Casts Urine Mucus Urine Other Ur Culture Indicated? Urine Glucose Random Vancomycin 12.7 COVID-19 Source SARS-CoV-2 (PCR) Influenza Type A (PCR) Influenza Type B (PCR) RSV (PCR) Time Spent with Patient Time Spent with Patient: 35-49 minutes Time was spent: preparing to see the patient(eg.review tests), obtaining and/or reviewing separately otained hiistory, ordering medications,tests, procedures, referring, communicating with other health early breastfeeding care specialist, indepentently interpreting results, counseling the patient and care coordination
[2024-08-19] MEDS: Normal Saline 1,000 ML 100 ML IV (14:09)
[2024-08-19] MEDS: Insulin Aspart 300 UNITS/3 ML PEN SC ×2 (14:20→17:10)
--- NOTE | 2024-08-19 14:58 | PT.INNT ---
PT Notes Visit Reasons: Urinary tract infection Pt approach in am and pm for evaluation. Pt on Hold per HORACIO De La Cruz as pt is continuing to receive cardizem drip.Will attempt evaluation on 08/20/24
[2024-08-19] MEDS: VANCOMYCIN 1,250 MG in Normal Saline 250 ML 166.6666 MG IVPB (16:24)
[2024-08-19] MEDS: traZODone 50 MG TAB PO (20:38)
[2024-08-19] MEDS: DULoxetine 30 MG CAP PO (20:38)
[2024-08-19] MEDS: Bimatoprost 0.01% 2.5 ML BTL OP (21:09)
[2024-08-19] MEDS: Insulin Glargine 300 UNITS/3 ML PEN 58 UNITS SC (21:50)
[2024-08-20] VITALS (42 sets, daily range): BP systolic 83–126; BP diastolic 55–100; PULSE 59–143; RESP 11–38; TEMP 36.6–37.1; O2SAT 85–96
[2024-08-20] MEDS: Normal Saline 1,000 ML 100 ML IV (00:40)
[2024-08-20] MEDS: Normal Saline Flush 10 ML SYR IVP ×4 (03:40→20:20)
[2024-08-20 07:00] LABS: Abs Immature Grans 0.03 10^3/uL (0.0-0.06); Absolute Basophil Count 0.06 10^3/uL (0.0-0.2); Absolute Eosinophil Count 0.34 10^3/uL (0.0-0.7); Absolute Lymphocyte Count 0.97 10^3/uL (1.2-3.4); Absolute Neutrophil Count 7.35 10^3/uL (1.2-6.7); Basophils % 0.6 %; Eosinophils % 3.6 %; HCT 34.3 % (36.0-46.0); HGB 10.4 g/dL (11.2-15.7); Immature Grans % 0.3 %; Lymphocytes % 10.2 %; MCH 27.4 pg (27.0-33.0); MCHC 30.3 % (32.0-36.0); MCV 90 fL (80-95); MPV 11.8 fL (8.0-11.0); Monocytes % 8.4 %; Neutrophils % 76.9 %; Platelet Count 251 10^3/uL (130-400); RDW 16.8 % (11.7-14.6); RDW-SD 53.8 fL; WBC 9.55 10^3/uL (4.4-10.8)
[2024-08-20 07:28] LABS: ALT 17 U/L (14-59); AST 16 U/L (15-37); Albumin 2.4 g/dL (3.4-5.0); Alkaline Phosphatase 131 U/L (46-116); BUN 20 mg/dL (7-18); Bilirubin, Total 0.9 mg/dL (0.2-1.0); CREATININE 1.1 mg/dL (0.55-1.02); Calcium 8.7 mg/dL (8.5-10.1); Chloride 104 mmol/L (98-107); Estimated GFR 51.43 (mL/min/1.73m2); Glucose 185 mg/dL (74-106); Potassium 3.4 mmol/L (3.5-5.1); Sodium 143 mmol/L (136-145); TSH (W/Ref FT4) 3.79 uIU/mL (0.36-3.74); Total Protein 6.3 g/dL (6.4-8.2)
[2024-08-20] MEDS: Tiotropium/Olodaterol 10 PUFF INHALER 2 PUFF IH (08:02)
--- NOTE | 2024-08-20 08:41 | CMPROGNOTE_ITS ---
Date of service: 08/20/24 Time of Service: 08:41 Care Management Progress Note Progress Note Text Progress Note Text: Jessa is still in the ICU. It is planned that she will stop her diltiazem gtt today, and transition to PO. Her heart rate is still noted to be >100 most assessments, but does seem to be trending down. Jessa remains upbeat. She would like to be discharged. It is likely that she will be moved out of ICU tomorrow, with possible discharge the next day. Discharge Potential Discharge Needs: PT Evaluation and PCP F/U Appt Anticipated Barriers to Discharge: None Identified Patient/Family Education Needs: Review discharge instructions, discuss Ask Me Three Transportation: RCT RCT Transportation: Wheel chair van Plan: Anticipate that Jessa will return to [facility] once medically stable. She will transport via RCT wheelchair van. Jessa will f/u with the facility provider and continue per her plan of care. CM will continue to follow. Social Determinants of Health Screening Will the Patient Participate in the Screening?: Unable to obtain
[2024-08-20] MEDS: Insulin Aspart 300 UNITS/3 ML PEN SC ×3 (08:58→16:53)
[2024-08-20] MEDS: Potassium Chloride 20 MEQ TABCR PO ×2 (08:59→20:18)
[2024-08-20] MEDS: Empaglifozin 10 MG TAB PO (08:59)
[2024-08-20] MEDS: Magnesium Oxide 400 MG TAB PO ×2 (08:59→20:19)
[2024-08-20] MEDS: Apixaban 5 MG TAB PO ×2 (08:59→20:18)
[2024-08-20] MEDS: Atorvastatin 40 MG TAB 80 MG PO (08:59)
[2024-08-20] MEDS: Multivitamin TAB 1 TAB PO (08:59)
[2024-08-20] MEDS: Sucralfate 1 GM TAB PO ×4 (08:59→20:19)
[2024-08-20] MEDS: Metoprolol 50 MG TAB 100 MG PO (09:17)
[2024-08-20] MEDS: Metoprolol 25 MG TAB PO (09:17)
[2024-08-20] MEDS: dilTIAZem 30 MG TAB 90 MG PO ×3 (10:05→20:18)
[2024-08-20] MEDS: Haloperidol 5 MG/ML VIAL 2 MG IM/IV (12:47)
--- NOTE | 2024-08-20 13:35 | PT.INNT ---
PT Notes Visit Reasons: Urinary tract infection Pt unable to participate in PT assessment as she remained on Hold for transition from Diltiazem drip to po in the morning. Per Nurse Mary pt now desating , increased confusion , requiring Administration of medication. Nurse recommend to not initiate evaluation until 08/21/24. Will continue to work with Nursing as pt status is appropriate for PT assessment.
[2024-08-20] MEDS: Spironolactone 50 MG TAB PO ×2 (14:27→20:18)
--- NOTE | 2024-08-20 14:37 | W.PM.PROGNOT ---
Date of Service Date of service: 08/20/24 Time of Service: 14:37 Assessment and Plan Assessment and plan (1) Atrial fibrillation with rapid ventricular response: Status: Acute Assessment and plan: continue with cardizem drip and will restart her oral bb and ccb. Pt has not taken her meds in appx 5 days Pt on eliquis 08/19/24 Pt still on cardizem drip. I did hold her oral medications. Hopefully with continued abx to help with physiologic stress and some ivf her hr will co under 100 consistently. At any rate, will plan on starting po ccb and bb tomorrow. 08/20/24 Cardizem drip has been stopped. Now on cardizem 90 tid and has rate control. Pt also on metoprolol, but tartrate and only QD. Will do lopressor 50mg po bid. Pt also on eliquis (2) Heart failure with preserved ejection fraction (HFpEF, >= 50%): Status: Acute Assessment and plan: c/w medical management including diuretics/bb/jardiance. I'm not seeing an corwin/arb so will add this as well. Will look at her last dc summary to see if this was prescribed at dc. 08/19/24 Will start on lisinopril 2.5mg po daily. Pt is 3rd spacing a bit, but also has some dehydration. Fluid balance is challenging 08/20/24 Will actually hold corwin 2/2 soft pressures and wanting to titrate BB. I will add aldactone and albumin to see if we can mobilize 3rd spacing fluids. Lasix relatively contraindicated 2/2 ongoing hypokalemia (3) Acute hypokalemia: Status: Acute Assessment and plan: c/w replacement and check labs in am. Will change lasix to aldactone. Recheck labs in am 08/19/24 Improving but still low. CW rx. Would hold lasix until electrolytes normalize 08/20/24 Continues to improve. C/w oral supplementation (4) Hypomagnesemia: Assessment and plan: cw oral replacement (5) Acute UTI: Status: Acute Assessment and plan: cw vancomycin. Urine cultures drawn and pending. Recent urine culture shows enterococcus with suceptibility to vanc (07/17/24) 08/19/24 Will change to cipro at least until cultures are available. 08/20/24 Held cipro 2/2 SE profile. CW vanc for now, await urine culture results (6) Sepsis: Status: Acute Assessment and plan: Will give IVF but at a reduced rate 2/2 CHF and the fact that the pt has not been taking her meds 08/20/24 Hold fluids 2/2 symptomatic CHF (7) Left shoulder pain: Status: Acute Assessment and plan: noted on last admission. Continue with PT (8) Chronic obstructive pulmonary disease with (acute) exacerbation: Status: Acute Assessment and plan: c/w inhalers. Will not add steroids as pt is doing well from a respiratory stand point and is a diabetic (9) Pleural effusion: Status: Acute Assessment and plan: Will consult GS in am to see if a thoracentesis would be appropriate 08/19/24 Did d/w GS today. Will wait until pt is a little more stable prior to thoracentesis. VSS, so not emergent 08/20/24 Vitals remain stable, will hold off on thoracentesis (10) NATHAN (obstructive sleep apnea): Status: Chronic Assessment and plan: c/w cpap (11) Cardiac pacemaker in situ: Assessment and plan: noted (12) HLD (hyperlipidemia): Assessment and plan: c/w statin (13) HTN (hypertension): Assessment and plan: normotensive, will monitor (14) Depressive disorder: Assessment and plan: cw medical management (15) Diabetes: Assessment and plan: cw jardiance/long acting insulin and novolog. Will add corwin 08/19/24 Will add sliding scale-mod (16) Thyroid nodule: Assessment and plan: will order thyroid usn 08/20/24 d/w radiology who recommends out patient follow up will cancel usn (17) S/P AVR: Assessment and plan: noted (18) Hx of CABG: Assessment and plan: noted Subjective Subjective Interval history since last seen: Pt seen and examined in her room this am. Pt w/o signicant complaint at that time. NS do report pt with one episode of delirium which responded to redirection and haldol Exam Narrative Exam Narrative: HEENT: Normocephalic atraumatic mucous memories moist oropharynx clear extract motions are intact Neck: No lymphadenopathy no JVD no thyromegaly Cardiovascular: Irregularly irregular rhythm tachycardic Lungs: Clear to auscultation bilaterally no accessory muscle use speaking in complete sentences Abdomen: Protuberant bowel sounds active x 4 Extremity: 2+ lower extremity edema bilaterally up to the mid calves Psych: Patient is alert and oriented to person place year and age Neuro: Cranial nerves II through XII intact as tested reflexes in upper extremity normal as tested 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 now with bilat UE swelling as well Objective Last Vital Signs Temp 37.0 C 08/20/24 11:31 Pulse 114 H 08/20/24 12:01 Resp 19 08/20/24 12:01 BP 111/86 08/20/24 12:01 Pulse Ox 86 L 08/20/24 13:26 Laboratory Results - last 24 hr 08/20/24 05:37 WBC 9.55 RBC 3.80 L Hgb 10.4 L Hct 34.3 L MCV 90 MCH 27.4 MCHC 30.3 L RDW 16.8 H Plt Count 251 MPV 11.8 H Immature Gran % 0.3 Neutrophils % 76.9 Lymphocytes % 10.2 Monocytes % 8.4 Eosinophils % 3.6 Basophils % 0.6 Nucleated RBC % 0.0 Absolute Neutrophils 7.35 H Absolute Lymphocytes 0.97 L Absolute Monocytes 0.80 Absolute Eosinophils 0.34 Absolute Basophils 0.06 Sodium 143 Potassium 3.4 L Chloride 104 Carbon Dioxide 32.0 Anion Gap 7.0 BUN 20 H Creatinine 1.1 H Est GFR (CKD-EPI 2020) 51.43 Glucose 185 H Calcium 8.7 Total Bilirubin 0.9 AST 16 ALT 17 Alkaline Phosphatase 131 H Total Protein 6.3 L Albumin 2.4 L TSH 3.79 H Free T4 1.20 Time Spent with Patient Time Spent with Patient: 35-49 minutes Time was spent: preparing to see the patient(eg.review tests), obtaining and/or reviewing separately otained hiistory, ordering medications,tests, procedures, referring, communicating with other health healthcare network consultant, indepentently interpreting results, counseling the patient and care coordination
[2024-08-20] MEDS: ALBUMIN HUMAN 25 GM/100 ML BTL IVPB (15:00)
[2024-08-20] MEDS: VANCOMYCIN 1,250 MG in Normal Saline 250 ML 166 MG IVPB (16:53)
[2024-08-20] MEDS: Normal Saline 500 ML IV (20:16)
[2024-08-20] MEDS: PIPERACILLIN/TAZO 3.375 GM in Normal Saline 50 ML IVPB (20:17)
[2024-08-20] MEDS: DULoxetine 30 MG CAP PO (20:17)
[2024-08-20] MEDS: traZODone 50 MG TAB PO (20:19)
[2024-08-20] MEDS: Metoprolol 50 MG TAB PO (20:19)
[2024-08-20] MEDS: Bimatoprost 0.01% 2.5 ML BTL OP (20:19)
[2024-08-20] MEDS: Insulin Glargine 300 UNITS/3 ML PEN 58 UNITS SC (20:20)
[2024-08-21] VITALS (36 sets, daily range): BP systolic 84–111; BP diastolic 51–90; PULSE 56–91; RESP 12–35; TEMP 36.3–36.6; O2SAT 87–97
[2024-08-21] MEDS: PIPERACILLIN/TAZO 3.375 GM in Normal Saline 50 ML IVPB ×3 (02:16→13:24)
[2024-08-21 06:13] LABS: Abs Immature Grans 0.04 10^3/uL (0.0-0.06); Absolute Basophil Count 0.04 10^3/uL (0.0-0.2); Absolute Eosinophil Count 0.21 10^3/uL (0.0-0.7); Absolute Lymphocyte Count 1.26 10^3/uL (1.2-3.4); Absolute Monocyte Count 0.72 10^3/uL (0.1-0.8); Absolute Neutrophil Count 7.33 10^3/uL (1.2-6.7); Basophils % 0.4 %; Eosinophils % 2.2 %; HCT 33.1 % (36.0-46.0); HGB 10.1 g/dL (11.2-15.7); Immature Grans % 0.4 %; Lymphocytes % 13.1 %; MCH 27.2 pg (27.0-33.0); MCHC 30.5 % (32.0-36.0); MCV 89 fL (80-95); MPV 11.6 fL (8.0-11.0); Monocytes % 7.5 %; Neutrophils % 76.4 %; Nucleated RBC 0.4 % (0.0-0.3); Platelet Count 242 10^3/uL (130-400); RBC 3.71 10^6/uL (3.93-5.22); RDW 17.2 % (11.7-14.6); RDW-SD 53.8 fL
[2024-08-21 06:40] LABS: ALT 74 U/L (14-59); AST 80 U/L (15-37); Albumin 2.6 g/dL (3.4-5.0); Alkaline Phosphatase 194 U/L (46-116); Anion Gap 2.9 mmol/L (3-11); BUN 26 mg/dL (7-18); Bilirubin, Total 1.1 mg/dL (0.2-1.0); CO2 32.1 mmol/L (21.0-32.0); CREATININE 1.4 mg/dL (0.55-1.02); Calcium 8.6 mg/dL (8.5-10.1); Chloride 102 mmol/L (98-107); Estimated GFR 38.51 (mL/min/1.73m2); Glucose 152 mg/dL (74-106); Potassium 4.1 mmol/L (3.5-5.1); Sodium 137 mmol/L (136-145); Total Protein 6.2 g/dL (6.4-8.2)
[2024-08-21] MEDS: Ondansetron 4 MG/2 ML VIAL IVP (07:01)
[2024-08-21] MEDS: Normal Saline Flush 10 ML SYR IVP ×5 (07:01→20:44)
[2024-08-21] MEDS: Tiotropium/Olodaterol 10 PUFF INHALER 2 PUFF IH (08:11)
[2024-08-21] MEDS: Atorvastatin 40 MG TAB 80 MG PO (08:28)
[2024-08-21] MEDS: Multivitamin TAB 1 TAB PO (08:31)
[2024-08-21] MEDS: Magnesium Oxide 400 MG TAB PO ×2 (08:32→20:43)
[2024-08-21] MEDS: Potassium Chloride 20 MEQ TABCR PO ×2 (08:33→20:43)
[2024-08-21] MEDS: Sucralfate 1 GM TAB PO ×4 (08:33→20:44)
[2024-08-21] MEDS: Apixaban 5 MG TAB PO ×2 (08:33→20:42)
[2024-08-21] MEDS: Empaglifozin 10 MG TAB PO (08:33)
--- NOTE | 2024-08-21 08:37 | PDOC.CMPRO ---
Date of service: 08/21/24 Time of Service: 08:37 Care Management Progress Note Progress Note Text Progress Note Text: Jessa is making some slow progress. Yesterday afternoon she had some confusion and agitation and did require Haldol x 1. She also received albumin and a NS bolus of 500cc yesterday. She is now on Cardizem PO. Jessa is having worsening LE edema, balancing her fluids has been complicated, and she remains in ICU. Despite the medical issues, Jessa remains upbeat. She continues to be quick with a smile, and denies any c/o. Per nursing report, Jessa has been at her baseline mental status today, and appeared so with CM. Discharge Potential Discharge Needs: PCP F/U Appt Anticipated Barriers to Discharge: None Identified Patient/Family Education Needs: Review discharge instructions, discuss Ask Me Three Transportation: RCT RCT Transportation: Wheel chair van Plan: Anticipate that Jessa will return to [facility] once medically stable. She will transport via RCT wheelchair van. Jessa will f/u with the facility provider and continue per her plan of care. CM will continue to follow. Social Determinants of Health Screening Will the Patient Participate in the Screening?: Unable to obtain
[2024-08-21] MEDS: Furosemide 40 MG/4 ML VIAL IVP ×2 (09:49→16:47)
[2024-08-21] MEDS: Metoprolol 50 MG TAB 100 MG PO ×2 (09:55→20:42)
--- NOTE | 2024-08-21 10:43 | PT.INIE ---
PT Notes Visit Reasons: Urinary tract infection Inpatient Physical Therapy Evaluation Date: 08/21/2024 Referring Doctor: Dr Alvarado PT Orders: PT CONSULT: PT evaluation and treatment Precautions: Telemetry,Oxygen to keep sats 88-92%, pacemaker, Johnson, Patient Profile/Admitting Diagnosis: Jessa is a 78-year-old female presenting to the ED from SNF with Afib with RVR. CT chest/abd showed pleural effusion /pneumonia. Pt with Elevated lactic acid and low potassium. Pt also noted to have UTI. Pt transferred to ICU. Pt initially unable to participate in PT d/t diltiazem drip and alerted mentation. As of 08/21, pt no longer on diltiazem drip and able to participate in PT evaluation. PMHX: Knee pain, left (Acute) Heart failure with preserved ejection fraction (HFpEF, >= 50%) (Acute) Acute exacerbation of CHF (congestive heart failure) (Acute) Decubitus ulcer of sacral region (Acute) Acute respiratory failure with hypoxia and hypercapnia (Acute) NATHAN (obstructive sleep apnea) (Chronic) Yeast infection of the skin (Acute) Acute hypoxic respiratory failure (Acute) Respiratory failure (Acute) Asthma (Chronic) Elevated BUN (Acute) Atrial fibrillation with rapid ventricular response (Acute) COPD (chronic obstructive pulmonary disease) (Acute) Chronic obstructive pulmonary disease with (acute) exacerbation (Acute) Medical History CKD (chronic kidney disease) stage 3, GFR 30-59 ml/min Atrial fibrillation Loose left total knee arthroplasty Type 2 diabetes mellitus without complications HTN (hypertension) Contusion of toe, left Dermal mycosis Thyroid nodule Diabetic peripheral neuropathy Vitamin D deficiency Hyperparathyroidism HLD (hyperlipidemia) Obesity Anemia Leukocytosis Depressive disorder GERD (gastroesophageal reflux disease) Cellulitis Stress incontinence Diabetes Cardiac pacemaker in situ placed 04/22/2022 in [place]. [employer] ZURITA [id number] SERIAL # [id number] ENTERED 04/17/24Anxiety Surgical History S/P AVR replaced with bovine valveHx of CABG Social History/Home Situation: Patient resides at [facility]. She utilizes FWW for transfers step turn to chair vs standlift . She uses a motorized w/c for transportaion out of her room. She is extensive assist for ADL care. She has meals provided and assistance t=for toileting Equipment Owned/DME: Motorized wheelchair, , FWW Subjective: Patient reports she is doing well. Objective: [] General Observation: elderly female sitting upright in bed telemetry in place, Oxygen at 1 L/Min via NC, Johnson Mental Status: Alert Ox to person and place. intermittent confusion noted. , Pain: left knee 3/10 with prolonged standing and with palpation Vital Signs: oxygen at rest 93% 1L/min via NC, 89% with standing at stedy lift on 1L/min via NC ROM: Right Upper Extremity: WFL except GHJ flexion to 100 Left Upper Extremity:WFL except GHJ flexion to 100 Right Lower Extremity:WFL hip and knee limited by soft tissue approximation Left Lower Extremity: WFL hip and knee limited by soft tissue approximation Strength: Right Upper Extremity: 4/5 grossly Left Upper Extremity: 4/5 grossly Right Lower Extremity: hip 3-/5, knee extension 3/5, flexion 3-/5 ankle 3/5 Left Lower Extremity: hip 3-/5, knee extension 3/5, flexion 3-/5, ankle 3/5 Sensation: intact Bed Mobility/Transfers: semireclined to sit at edge of bed mod A x 2 sit to/from stand : unable to stand at FWW, however able to pull to stand with mod A of 2 at stedylift. Pt able to tolerate stand on stedylift bed to chair stedy lift with 2 assist. Pt able to lower self to chair with min A of 2. Gait: Pt unable to perform Balance: [] Static Sitting: Good Dynamic Sitting: Fair Static Standing:unable Dynamic Standing: unable Special Tests: Mobility Limitations Standardized Measure [facility] AM-PAC 6 clicks Basic Mobility Inpatient Short Form: Raw Score:8 CMS Score: 86.62% Informed Consent/Education: Patient instructed in purpose of PT consult and plan of care. Assessment: Patient is a 78 year old female referred to physical therapy services with the diagnosis of UTI,Afib with RVR. Patient currently needing supplemental oxygen Patient presents with clinical signs and symptoms consistent with admitting diagnosis, as demonstrated by the following impairment level findings: 1. impaired strength BLE / BUE Major muscle groups 2. Impaired sitting/standing balance 3. impaired activity tolerance 4. Limited ROM B hips and knees, B shoulders 5. pain left knee 6. dependent on supplemental oxygen 7. Impaired skin integrity buttocks. Impairments are contributing to the following functional limitations: 1.AMPAC score. 2. decline in bed mobility skills 3. decline in transfer skills 4. Increase time to complete ADL/ mobility tasks 5. Increase risk for falls Patient is assessed as a Moderate 21892 complexity based on the following: History: 78-year-old female with past medical history as indicated above Examination: Demonstrates impairments in strength balance and mobility with underlying impairments and functional limitations as outlined above as well as AM-PAC score of 86.62% Presentation: Evolving Decision Making: Moderate Goals: X 1 week 1. mod A transfers step turn FWW to simulate transfers recliner to/from her power chair 2. mod A sit to stand at grab bar or FWW 3. mod A of 1 supine to /from sit Plan of Care/Treatment Plan: 1-2x/day, 7 days/week x 1 week. Plan of care has been reviewed with the TRAVEL SERVICES PROFESSIONAL providing the service under Physical Therapy direction. Initiate Physical Therapy intervention for strengthening, bed mobility, transfers, gait, stairs, balance training, use of assistive device. DISCHARGE RECOMMENDATIONS: [] [] Home with no services [] [] Home with services PT. [] Home with outpatient PT [] [ ] SNF for continued rehabilitation to determine ability to return to home. [X] Return to SNF /Computer Numerical Control Machinist Care with continue PT [] SNF versus LTC based on ability to progress and TREATMENT CODE/TIME: 64399/7774-3981
[2024-08-21] MEDS: Insulin Aspart 300 UNITS/3 ML PEN SC ×2 (11:45→16:47)
--- NOTE | 2024-08-21 13:06 | W.PM.PROGNOT ---
Date of Service Date of service: 08/21/24 Time of Service: 13:06 Assessment and Plan Assessment and plan (1) Atrial fibrillation with rapid ventricular response: Status: Acute Assessment and plan: -patient was admitted with a-fib RVR, reportedly was not taking her meds likely due to confusion from UTI -was started on dilt drip with Q6h dilt -has since been transitioned to PO dilt 90 TID, lopressor 50mg BID -given ongoing issues with low BPs in the setting of worsening edema, PO dilt now 60mg BID, and lopressor 100mg BID -continue home eliquis (2) Heart failure with preserved ejection fraction (HFpEF, >= 50%): Status: Acute Assessment and plan: -worsening LE edema noted and patient did not have her home lasix continued -previous provider noted she was not on SUNSHINE/ARB which was initiated with spironolactone before given increased doses of lasix leading to worsening edema and hypotension, noting that lasix was held and spironolactone given due to hypokalemia -due to need for diuresis, above adjusements were made to rate control regimen to allow for more room with BP -spironolactone discontinued -started lasix 40mg IV bid and will supplement K as needed -Cr and LFTs also increased, likely due to hepatic congestion -last TTE in Apr 2024, updated TTE ordered (3) Acute hypokalemia: Status: Acute Assessment and plan: -was as low as 2.9 and has since improved to 4.1 -will continue to monitor and supplement as needed given administration of IV lasix as noted above (4) Hypomagnesemia: Assessment and plan: cw oral replacement (5) Acute UTI: Status: Acute Assessment and plan: -patient was on vanc and cefepime, vanc mainly due to previous urine culture growing entero -previous physician documented that patient was not put on cipro due to side effect profile -blood cultures remain negative -final urine culture growing aerococcus and mixed gram positive allyssa, will change to PO cefpodoxime (6) Severe sepsis: Status: Acute Assessment and plan: -patient met criteria for severe sepsis with HR 153, RR 31, UTI as source of infection, tbili 1.5, and lactic acid of 2.9 (improved to 2.1 on repeate) -continue UTI treatment as noted above (7) Pleural effusion: Status: Acute Assessment and plan: Will consult GS in am to see if a thoracentesis would be appropriate 08/19/24 Did d/w GS today. Will wait until pt is a little more stable prior to thoracentesis. VSS, so not emergent 08/20/24 Vitals remain stable, will hold off on thoracentesis (8) COPD (chronic obstructive pulmonary disease): Status: Acute Assessment and plan: -without acute exacerbation -continue home inhaler regimen (9) Chronic hypoxic respiratory failure, on home oxygen therapy: Status: Acute Assessment and plan: -on baseline 1L NC (10) NATHAN (obstructive sleep apnea): Status: Chronic Assessment and plan: c/w cpap (11) Cardiac pacemaker in situ: Assessment and plan: noted (12) HLD (hyperlipidemia): Assessment and plan: c/w statin (13) Depressive disorder: Assessment and plan: cw medical management (14) Diabetes: Assessment and plan: -cw jardiance/long acting insulin and novolog -continue SSI (15) Hx of CABG: Assessment and plan: noted Subjective Subjective Interval history since last seen: Patient states that she is feeling better and she understands we are going to continue to work on her worsening LE edema. Exam Narrative Exam Narrative: chronically ill appearing older female laying in bed in no acute distress, AOx4, 1L NC in place, heart RRR, lungs CTAB, abdomen obese, soft, non-tender, nono-distended, +2 pitting edema in bilateral LE to just below the knees Objective Last Vital Signs Temp 97.9 F 08/21/24 11:53 Pulse 58 L 08/21/24 11:01 Resp 22 08/21/24 11:01 BP 103/66 08/21/24 11:01 Pulse Ox 92 08/21/24 11:01 Laboratory Results - last 24 hr 08/21/24 06:00 WBC 9.60 RBC 3.71 L Hgb 10.1 L Hct 33.1 L MCV 89 MCH 27.2 MCHC 30.5 L RDW 17.2 H Plt Count 242 MPV 11.6 H Immature Gran % 0.4 Neutrophils % 76.4 Lymphocytes % 13.1 Monocytes % 7.5 Eosinophils % 2.2 Basophils % 0.4 Nucleated RBC % 0.4 H Absolute Neutrophils 7.33 H Absolute Lymphocytes 1.26 Absolute Monocytes 0.72 Absolute Eosinophils 0.21 Absolute Basophils 0.04 Sodium 137 Potassium 4.1 Chloride 102 Carbon Dioxide 32.1 H Anion Gap 2.9 L BUN 26 H Creatinine 1.4 H Est GFR (CKD-EPI 2020) 38.51 Glucose 152 H Calcium 8.6 Total Bilirubin 1.1 H AST 80 H ALT 74 H Alkaline Phosphatase 194 H Total Protein 6.2 L Albumin 2.6 L Time Spent with Patient Time Spent with Patient: >50 minutes Time was spent: preparing to see the patient(eg.review tests), obtaining and/or reviewing separately otained hiistory, ordering medications,tests, procedures, referring, communicating with other health career information specialist, indepentently interpreting results, counseling the patient and care coordination
--- NOTE | 2024-08-21 13:26 | PT.INTREAT ---
PT Notes Visit Reasons: Urinary tract infection Inpatient Physical Therapy Treatment Note [facility] Date:08/21/2024 PRECAUTIONS:IV access LUE Oxygen to keep sate 88-92% ( currently 1L/Min via NC), roxyetry, Elizabeth SUBJECTIVE: Pt reports she wants to go back to bed to get her legs elevated more. OBJECTIVE: seated in chair with feet on foot stool with pillow Pain: denied VITALS: monitored via telemetry throughout ? Therapeutic Activities (97557): Direct one-on-one instruction in dynamic activities to improve functional performance. ?? Provided skilled cues and instruction on performance and technique throughout. ? TRANSFERS? Sit-stand: pull to stand at Stedy lift with Max A of 2 from chair? Stand-sit: mod A to lower from stedylift to bed ? Pt stood in stedy lift with min A of 2 x 2.5 mins without support at buttocks, Pt also able to tolerate WB through BLE x 3 mins with support at buttocks from stedy lift. Pt able to sustain oxygen saturation >88% while standing with supplemental oxygen. ? ASSESSMENT:? Pt nikhil. session well. . Pt pSO2 remained within range 88-92% on 1L/min via NC. Pt tolerated 2 episodes of standing at stedy lift with and without buttock support. She noted increased confusion this pm stating the LINE HAUL DRIVER was standing on a chair that she wanted to sit in instead of going to bed. Nurse notified by LINE HAUL DRIVER. PLAN: 1-2x/day, 7 days/week x 1 week. Plan of care has been reviewed with the VICE PRESIDENT BUSINESS & CORPORATE DEVELOPMENT providing the service under Physical Therapy direction. Initiate Physical Therapy intervention for strengthening, bed mobility, transfers, gait, balance training, use of assistive device. TREATMENT CODE/TIME: 91097/ [id number] DISCHARGE RECOMMENDATION: SNF with cont PT
--- NOTE | 2024-08-21 17:27 | CHAPLAIN ---
Jessa was sleeping when I walked in her room but woke up when I spoke her name. She seemed surprised by her surroundings, but said she remembered she's in the hospital when I asked her. She had difficulty hearing me, but told me that she doesn't have any family around here. She lives at the [facility] for [facility] and will return there when she is ready. I explained my role to her and offered support.
[2024-08-21] MEDS: Insulin Glargine 300 UNITS/3 ML PEN 58 UNITS SC (20:41)
[2024-08-21] MEDS: Bimatoprost 0.01% 2.5 ML BTL OP (20:41)
[2024-08-21] MEDS: dilTIAZem 30 MG TAB 60 MG PO (20:43)
[2024-08-21] MEDS: DULoxetine 30 MG CAP PO (20:43)
[2024-08-21] MEDS: traZODone 50 MG TAB PO (20:43)
[2024-08-21] MEDS: Cefpodoxime 200 MG TAB PO (20:43)
[2024-08-22] VITALS (19 sets, daily range): BP systolic 88–112; BP diastolic 58–73; PULSE 59–82; RESP 13–24; TEMP 36.1–36.7; O2SAT 92–97
--- NOTE | 2024-08-22 | DI.US_ITS ---
Exam(s) US UPPER EXTREMITY VENOUS LT EXAM: US UPPER EXTREMITY VENOUS LT CLINICAL HISTORY: unilateral LUE/hand swelling. TECHNIQUE: Ultrasound examination of the left upper extremity venous system(s) is performed using gr ayscale, color-flow, and spectral Doppler analysis. COMPARISON: No exams were available for comparison FINDINGS: There is a 2 centimeter area of noncompressibility in the cephalic vein at the level of the intraveno us catheter in the forearm. The left internal jugular, axillary, subclavian, basilic, brachial, radial, and ulnar veins are paten t without evidence of thrombosis. IMPRESSION: 2 centimeter long thrombus in the cephalic vein around the IV catheter. DATA REPOSITORY:
[2024-08-22] MEDS: Tiotropium/Olodaterol 10 PUFF INHALER 2 PUFF IH (06:43)
[2024-08-22 06:53] LABS: HCT 33.2 % (36.0-46.0); HGB 9.9 g/dL (11.2-15.7); MCH 26.7 pg (27.0-33.0); MCHC 29.8 % (32.0-36.0); MCV 90 fL (80-95); Platelet Count 240 10^3/uL (130-400); RBC 3.71 10^6/uL (3.93-5.22); RDW 17.3 % (11.7-14.6); RDW-SD 54.7 fL; WBC 9.35 10^3/uL (4.4-10.8)
[2024-08-22 07:19] LABS: ALT 53 U/L (14-59); AST 34 U/L (15-37); Albumin 2.5 g/dL (3.4-5.0); Alkaline Phosphatase 166 U/L (46-116); Anion Gap 2.8 mmol/L (3-11); BUN 28 mg/dL (7-18); Bilirubin, Total 0.7 mg/dL (0.2-1.0); CO2 34.2 mmol/L (21.0-32.0); CREATININE 1.5 mg/dL (0.55-1.02); Chloride 103 mmol/L (98-107); Estimated GFR 35.45 (mL/min/1.73m2); Glucose 119 mg/dL (74-106); Potassium 3.8 mmol/L (3.5-5.1); Sodium 140 mmol/L (136-145); Total Protein 6.1 g/dL (6.4-8.2)
[2024-08-22] MEDS: Potassium Chloride 20 MEQ TABCR PO ×2 (08:11→21:30)
[2024-08-22] MEDS: Furosemide 40 MG/4 ML VIAL IVP ×2 (08:11→16:08)
[2024-08-22] MEDS: Magnesium Oxide 400 MG TAB PO ×2 (08:12→21:30)
[2024-08-22] MEDS: Sucralfate 1 GM TAB PO ×4 (08:12→21:30)
[2024-08-22] MEDS: Multivitamin TAB 1 TAB PO (08:12)
[2024-08-22] MEDS: Atorvastatin 40 MG TAB 80 MG PO (08:12)
[2024-08-22] MEDS: dilTIAZem 30 MG TAB 60 MG PO (08:12)
[2024-08-22] MEDS: Apixaban 5 MG TAB PO ×2 (08:12→21:30)
[2024-08-22] MEDS: Metoprolol 50 MG TAB 100 MG PO (08:12)
[2024-08-22] MEDS: Cefpodoxime 200 MG TAB PO ×2 (08:12→21:29)
[2024-08-22] MEDS: Empaglifozin 10 MG TAB PO (08:13)
[2024-08-22] MEDS: Normal Saline Flush 10 ML SYR IVP ×4 (08:14→21:32)
--- NOTE | 2024-08-22 08:44 | PDOC.CMPRO ---
Date of service: 08/22/24 Time of Service: 08:44 Care Management Progress Note Progress Note Text Progress Note Text: Jessa was sitting up in the chair, sleeping, when CM met with her today. She was very easily roused, and was very quick to smile. Jessa stated that she is feeling good. She is ready to go back to the rehab tomorrow. Discharge Potential Discharge Needs: PCP F/U Appt (facility provider) Anticipated Barriers to Discharge: None Identified Patient/Family Education Needs: Review discharge instructions, discuss Ask Me Three Transportation: [facility] RCT Transportation: Wheel chair van Plan: Anticipate that Jessa will return to [facility] once medically stable. She will transport via [facility] wheelchair van. Jessa will f/u with the facility provider and continue per her plan of care. CM will continue to follow. Social Determinants of Health Screening Will the Patient Participate in the Screening?: Unable to obtain
--- NOTE | 2024-08-22 09:34 | PGE_ITS ---
Date of Service Date of service: 08/22/24 Time of Service: 09:34 Assessment and Plan Assessment and plan (1) Atrial fibrillation with rapid ventricular response: Status: Acute Assessment and plan: -patient was admitted with a-fib RVR, reportedly was not taking her meds likely due to confusion from UTI -was started on dilt drip with Q6h dilt -has since been transitioned to PO dilt 90 TID, lopressor 50mg BID -given ongoing issues with low BPs in the setting of worsening edema, PO dilt now 60mg BID, and lopressor 100mg BID -HR and BP have been stable with above regimen -continue home eliquis (2) Heart failure with preserved ejection fraction (HFpEF, >= 50%): Status: Acute Assessment and plan: -worsening LE edema noted and patient did not have her home lasix continued -previous provider noted she was not on SUNSHINE/ARB which was initiated with spironolactone before given increased doses of lasix leading to worsening edema and hypotension, noting that lasix was held and spironolactone given due to hypokalemia -due to need for diuresis, above adjusements were made to rate control regimen to allow for more room with BP -spironolactone discontinued -started lasix 40mg IV bid and will supplement K as needed -Cr and LFTs also increased, likely due to hepatic congestion -last TTE in Apr 2024, updated TTE showed EF 40-45% (decreased from 50%) -good UOP with above regimen; 3L out, net negative 1.5L as of AM 08/22 (3) Acute hypokalemia: Status: Acute Assessment and plan: -was as low as 2.9 and has since improved and is now stable -will continue to monitor and supplement as needed given administration of IV lasix as noted above (4) Hypomagnesemia: Assessment and plan: cw oral replacement (5) Acute UTI: Status: Acute Assessment and plan: -patient was on vanc and cefepime, vanc mainly due to previous urine culture growing entero -previous physician documented that patient was not put on cipro due to side effect profile -blood cultures remain negative -final urine culture growing aerococcus and mixed gram positive allyssa, changed to PO cefpodoxime AM 08/21, will continue (6) Severe sepsis: Status: Acute Assessment and plan: -patient met criteria for severe sepsis with HR 153, RR 31, UTI as source of infection, tbili 1.5, and lactic acid of 2.9 (improved to 2.1 on repeate) -continue UTI treatment as noted above (7) Pleural effusion: Status: Acute Assessment and plan: -previous physician discussed with GS, no intervention at that time -O2 requirement at baseline (8) COPD (chronic obstructive pulmonary disease): Status: Acute Assessment and plan: -without acute exacerbation -continue home inhaler regimen (9) Chronic hypoxic respiratory failure, on home oxygen therapy: Status: Acute Assessment and plan: -on baseline 1L NC (10) NATHAN (obstructive sleep apnea): Status: Chronic Assessment and plan: c/w cpap (11) Cardiac pacemaker in situ: Assessment and plan: noted (12) HLD (hyperlipidemia): Assessment and plan: c/w statin (13) Depressive disorder: Assessment and plan: cw medical management (14) Diabetes: Assessment and plan: -cw jardiance/long acting insulin and novolog -continue SSI (15) Hx of CABG: Assessment and plan: noted Subjective Subjective Interval history since last seen: Patient states that she is doing well today and has no complaints or concerns at this time. Exam Narrative Exam Narrative: chronically ill appearing older female laying in bed in no acute distress, AOx4, 1L NC in place, heart RRR, lungs CTAB, abdomen obese, soft, non-tender, nono- distended, +1-2 pitting edema in bilateral LE to just below the knees though improved as compared to previous day, unilateral LUE swelling Objective Last Vital Signs Temp 98.1 F 08/22/24 07:10 Pulse 80 08/22/24 07:45 Resp 18 08/22/24 07:45 BP 106/71 08/22/24 07:45 Pulse Ox 97 08/22/24 07:45 Laboratory Results - last 24 hr 08/22/24 05:55 WBC 9.35 RBC 3.71 L Hgb 9.9 L Hct 33.2 L MCV 90 MCH 26.7 L MCHC 29.8 L RDW 17.3 H Plt Count 240 MPV 12.0 H Sodium 140 Potassium 3.8 Chloride 103 Carbon Dioxide 34.2 H Anion Gap 2.8 L BUN 28 H Creatinine 1.5 H Est GFR (CKD-EPI 2020) 35.45 Glucose 119 H Calcium 9.0 Total Bilirubin 0.7 AST 34 ALT 53 Alkaline Phosphatase 166 H Total Protein 6.1 L Albumin 2.5 L Time Spent with Patient Time Spent with Patient: >50 minutes Time was spent: preparing to see the patient(eg.review tests), obtaining and/or reviewing separately otained hiistory, ordering medications,tests, procedures, referring, communicating with other health women's health care nurse practitioner, indepentently interpreting results, counseling the patient and care coordination
--- NOTE | 2024-08-22 11:32 | PTTR_ITS ---
PT Notes Visit Reasons: Urinary tract infection Inpatient Physical Therapy Treatment Note [facility] Date:08/22/2024 PRECAUTIONS:IV access LUE Oxygen to keep sate 88-92% ( currently 1L/Min via NC), roxyetry, Elizabeth SUBJECTIVE: Pt reports she leslie get up as long as she has a rcliner to put her feet up on OBJECTIVE: supine in bed Pain: denied VITALS: monitored via telemetry throughout ? Therapeutic Activities (69658): Direct one-on-one instruction in dynamic activities to improve functional performance. ?? Provided skilled cues and instruction on performance and technique throughout. ? TRANSFERS sit to/from stand at FWW with mod A of 1 min A of 1 x 2 trials pt unable to lift feet to march in place therefore required use of Stedylift for transfer? Pt able to tolerate stand at FWW with min A of 2 x 30 sec x 2 with sit rest between? Sit-stand: pull to stand at Stedy lift with min A of 2 from bed ? Stand-sit: mod A to lower from stedylift to chair ? Pt stood in stedy lift with CGAof 2 x 1 min without support at buttocks, Pt also able to tolerate WB through BLE x 3 mins with support at buttocks from stedy lift. Pt able to sustain oxygen saturation >88% while standing with supplemental oxygen. ? ASSESSMENT:? Pt nikhil. session well. Pt able to initiate standing at FWWfor short time however unable to unweight feet for initiating step turn transfers. Pt pSO2 remained within range 88-92% on 1L/min via NC. Will continue to progress with step turn transfers with FWW. PLAN: 1-2x/day, 7 days/week x 1 week. Plan of care has been reviewed with the WINDCHILL ADMINISTRATOR providing the service under Physical Therapy direction. Initiate Physical Therapy intervention for strengthening, bed mobility, transfers, gait, balance training, use of assistive device. TREATMENT CODE/TIME: 18197/[id number] DISCHARGE RECOMMENDATION: SNF with cont PT
[2024-08-22] MEDS: Insulin Aspart 300 UNITS/3 ML PEN SC ×2 (11:43→17:05)
[2024-08-22] MEDS: Ondansetron 4 MG/2 ML VIAL IVP (17:37)
--- NOTE | 2024-08-22 20:40 | W.PC.ACHO ---
Registration Status: Primary Language: Preferred Language: ED Information & Data Chief Complaint AMS/LOC 08/18/24 15:23 Chief Complaint AMS/LOC 08/18/24 13:12 Other Complaint Orthopedic 08/18/24 12:55 Triage Note pain in right knee after 08/18/24 12:55 fall found on the floor at [facility] was on floor for unknown amount of time Medical / Surgical History (Last Updated 08/18/24 @ 16:28 by Andre Alvarado MD) Hypomagnesemia Hypokalemia Class 3 obesity Chronic respiratory failure with hypercapnia CKD (chronic kidney disease) stage 3, GFR 30-59 ml/min Atrial fibrillation Type 2 diabetes mellitus without complications HTN (hypertension) Depressive disorder GERD (gastroesophageal reflux disease) Cardiac pacemaker in situ Loose left total knee arthroplasty Contusion of toe, left Dermal mycosis Thyroid nodule Diabetic peripheral neuropathy Vitamin D deficiency Hyperparathyroidism HLD (hyperlipidemia) Anemia Leukocytosis Cellulitis Stress incontinence Diabetes Anxiety (Last Reviewed 08/18/24 @ 13:09 by Tasia Flores MD) S/P AVR Hx of CABG Most Recent Vital Signs Temperature 36.6 C 08/22/24 12:45 Temperature Source Temporal Artery Scan 08/22/24 12:45 Pulse 81 08/22/24 16:14 Pulse 80 08/22/24 16:14 Respiratory Rate 19 08/22/24 16:14 Respiratory Effort Normal, Non-Labored 08/18/24 16:15 Respiratory Depth Normal 08/18/24 16:15 Respiratory Pattern Tachypnea 08/18/24 18:00 Blood Pressure 91/61 L 08/22/24 16:14 Blood Pressure Mean 71 08/22/24 16:14 Blood Pressure Position Supine 08/18/24 18:00 Pulse Oximetry 95 08/22/24 16:14 Oxygen Delivery Method Nasal Cannula 08/22/24 07:00 Oxygen Flow Rate 1 08/22/24 07:00 Pain Level 0 08/22/24 07:10 Allergies gabapentin Allergy (Unverified 08/18/24 15:10) Unknown pantoprazole Allergy (Unverified 08/18/24 15:10) Unknown semaglutide (From Ozempic) Allergy (Unverified 08/18/24 15:10) Unknown Precautions Isolation Standard precaution 08/18/24 15:23 Active Medications Generic Name Dose Route Start Last Admin Trade Name Freq PRN Reason Stop Dose Admin Apixaban 5 mg 08/18/24 20:00 08/22/24 08:12 Apixaban 5 Mg Tab PO 5 mg BID RONALD Administration Atorvastatin Calcium 80 mg 08/19/24 08:30 08/22/24 08:12 Atorvastatin 40 Mg Tab PO 80 mg DAILY RONALD Administration Bimatoprost 0.05 ml 08/18/24 20:00 08/21/24 20:41 Bimatoprost 0.01% 2.5 Ml Btl OP 2.5 drp QPM RONALD Administration Cefpodoxime Proxetil 200 mg 08/21/24 20:00 08/22/24 08:12 Cefpodoxime 200 Mg Tab PO 08/31/24 19:59 200 mg BID RONALD Administration Diltiazem HCl 60 mg 08/21/24 09:30 08/22/24 08:12 Diltiazem 30 Mg Tab PO 60 mg BID RONALD Administration Duloxetine HCl 30 mg 08/18/24 20:00 08/21/24 20:43 Duloxetine 30 Mg Cap PO 30 mg QPM RONALD Administration Empagliflozin 10 mg 08/19/24 08:30 08/22/24 08:13 Empaglifozin 10 Mg Tab PO 10 mg QAM RONALD Administration Furosemide 40 mg 08/21/24 09:30 08/22/24 16:08 Furosemide 40 Mg/4 Ml Vial IVP 40 mg BID@0800,1600 RONALD Administration Insulin Aspart 0 units 08/19/24 12:00 08/22/24 17:05 Insulin Aspart 300 Units/3 Ml Pen SC 4 units 0800,1200,1700 RONALD Administration Protocol Insulin Glargine 58 units 08/18/24 20:00 08/21/24 20:41 Insulin Glargine 300 Units/3 Ml Pen SC 58 units QPM RONALD Administration Magnesium Oxide 400 mg 08/18/24 20:00 08/22/24 08:12 Magnesium Oxide 400 Mg Tab PO 400 mg BID RONALD Administration Metoprolol Tartrate 100 mg 08/21/24 09:30 08/22/24 08:12 Metoprolol 50 Mg Tab PO 100 mg BID RONALD Administration Multivitamins 1 tab 08/19/24 08:30 08/22/24 08:12 Multivitamin Tab PO 1 tab DAILY RONALD Administration Ondansetron HCl 4 mg 08/21/24 06:41 08/22/24 17:37 Ondansetron 4 Mg/2 Ml Vial IVP 4 mg Q4H PRN PRN Administration Potassium Chloride 20 meq 08/18/24 20:00 08/22/24 08:11 Potassium Chloride 20 Meq Tabcr PO 20 meq BID RONALD Administration Sodium Chloride 0 ml 08/18/24 13:00 08/22/24 16:08 Normal Saline Flush 10 Ml Syr IVP 20 ml PRN PRN Administration Sodium Chloride 0 ml 08/18/24 20:00 08/22/24 08:14 Normal Saline Flush 10 Ml Syr IVP 20 ml BID RONALD Administration Sucralfate 1 gm 08/18/24 20:00 08/22/24 16:08 Sucralfate 1 Gm Tab PO 1 gm QID RONALD Administration Tiotropium [place]/Olodaterol 2 puff 08/19/24 08:30 08/22/24 06:43 Tiotropium/Olodaterol 10 Puff Inhaler IH 2 inh DAILY RONALD Administration Trazodone HCl 50 mg 08/18/24 20:00 08/21/24 20:43 Trazodone 50 Mg Tab PO 50 mg HS RONALD Administration IV IV Catheter Type [Left Forearm Saline Lock ] IV Catheter Type [Right Saline Lock Antecubital] IV Catheter Gauge [Left 18 Forearm] IV Catheter Gauge [Right 20 Antecubital] Diagnostics 08/22/24 Range/Units 05:55 WBC 9.35 (4.4-10.8) 10^3/uL RBC 3.71 L (3.93-5.22) 10^6/uL Hgb 9.9 L (11.2-15.7) g/dL Hct 33.2 L (36.0-46.0) % MCV 90 (80-95) fL MCH 26.7 L (27.0-33.0) pg MCHC 29.8 L (32.0-36.0) % RDW 17.3 H (11.7-14.6) % Plt Count 240 (130-400) 10^3/uL MPV 12.0 H (8.0-11.0) fL Sodium 140 (136-145) mmol/L Potassium 3.8 (3.5-5.1) mmol/L Chloride 103 (98-107) mmol/L Carbon Dioxide 34.2 H (21.0-32.0) mmol/L Anion Gap 2.8 L (3-11) mmol/L BUN 28 H (7-18) mg/dL Creatinine 1.5 H (0.55-1.02) mg/dL Est GFR (CKD-EPI 2020) 35.45 (mL/min/1.73m2) Glucose 119 H (74-106) mg/dL Calcium 9.0 (8.5-10.1) mg/dL Total Bilirubin 0.7 (0.2-1.0) mg/dL AST 34 (15-37) U/L ALT 53 (14-59) U/L Alkaline Phosphatase 166 H (46-116) U/L Total Protein 6.1 L (6.4-8.2) g/dL Albumin 2.5 L (3.4-5.0) g/dL 08/18/24 13:23 Blood Culture - Preliminary Blood NO GROWTH 96 HOURS 08/18/24 13:23 Blood Culture - Preliminary Blood NO GROWTH 96 HOURS Ylquo-ew-Antb Documentation Fingerstick Glucose Start: 08/18/24 19:56 Freq: Status: Complete Protocol: Activity Type Activity Date Activity User E-sign Co-sign Detail Recorded Client Recorded Date Recorded By Document 08/20/24 08:29 BKG DAEMON(5) NVT-BG05 08/20/24 08:31 BKG DAEMON(6) Fingerstick Glucose Start: 08/20/24 10:08 Freq: .ACHS Status: Active Protocol: Activity Type Activity Date Activity User E-sign Co-sign Detail Recorded Client Recorded Date Recorded By Document 08/22/24 17:02 BKG DAEMON(7) NVT-BG05 08/22/24 17:03 BKG DAEMON(8) Intake and Output - 24 Hour Total 08/18/24 12:38 thru 08/22/24 17:42 Intake Total 9829.500 Output Total 7235 Balance 2594.500 Weight 104.1 kg Intake: IV 4716.500 Oral 5113 Output: Urine 7235 Other: Urine Color Yellow Urine Appearance Clear Comment pt has a patent sosa in place Stool Occult Blood Negative Stool Size Moderate Stool Characteristics Soft Formed Brown Urinary Catheter Urinary Catheter Date of 08/18/24 Insertion [Urethral (Sosa)] Time of insertion [Urethral ( 14:30 Sosa)] Falls Risk Assessment History of Falls Admit Due to Fall 08/18/24 18:00 Contributing Factors Confusion,Unstable, 08/18/24 18:00 Impairments,Medications Ambulatory Aids Uses ambulatory device + 08/18/24 18:00 Tubes/Lines With any additional score 08/18/24 18:00 Gait Evaluation W/any additional score 08/18/24 18:00 Cognition Cognitive impairment 08/18/24 18:00 Fall Total Score 122 08/18/24 18:00 Level of Risk Maximum Risk 08/18/24 18:00 Problems (Last Updated 08/18/24 @ 16:28 by Andre Alvarado MD) Chronic hypoxic respiratory failure, on home oxygen therapy (Acute) Pneumonia (Acute) Pleural effusion (Acute) Elevated lactic acid level (Acute) Acute UTI (Acute) Congestive heart failure (Chronic) Fall (Acute) Acute hypokalemia (Acute) Atrial fibrillation with RVR (Acute) Left shoulder pain (Acute) Severe sepsis (Acute) Sepsis (Acute) Heart failure with preserved ejection fraction (HFpEF, >= 50%) (Acute) NATHAN (obstructive sleep apnea) (Chronic) Atrial fibrillation with rapid ventricular response (Acute) COPD (chronic obstructive pulmonary disease) (Acute) Chronic obstructive pulmonary disease with (acute) exacerbation (Acute) v v v v v v v v v Sending and/or Receiving Nurses: Please use comment section below to note any information pertinent to the patient hand-off not included above. Information / Comments:78 yo F GD, megan to ICU for UTI, a-fib w/ RVR. Transfered to Med/surg tonight. mTransistioned off Dilt. frip to PO metrop. & Dilt. Sosa patent and draining. Increased edema need diuresis. Wound on buttocks mepi. in place. rm 226. Report received from:Jose Sharma RN, ICU, @ 2029.
[2024-08-22] MEDS: Insulin Glargine 300 UNITS/3 ML PEN 58 UNITS SC (21:30)
[2024-08-22] MEDS: traZODone 50 MG TAB PO (21:30)
[2024-08-22] MEDS: DULoxetine 30 MG CAP PO (21:30)
[2024-08-22] MEDS: Bimatoprost 0.01% 2.5 ML BTL OP (21:34)
[2024-08-23 03:40] VITALS: BP 118/75; PULSE 75; RESP 20; TEMP 36.4; O2SAT 96
[2024-08-23 06:26] LABS: HCT 32.2 % (36.0-46.0); HGB 9.6 g/dL (11.2-15.7); MCHC 29.8 % (32.0-36.0); MCV 91 fL (80-95); MPV 11.8 fL (8.0-11.0); Platelet Count 243 10^3/uL (130-400); RBC 3.55 10^6/uL (3.93-5.22); RDW 17.4 % (11.7-14.6); RDW-SD 56.7 fL; WBC 8.56 10^3/uL (4.4-10.8)
[2024-08-23 06:38] LABS: Anion Gap 1.4 mmol/L (3-11); BUN 28 mg/dL (7-18); CO2 36.6 mmol/L (21.0-32.0); CREATININE 1.4 mg/dL (0.55-1.02); Chloride 104 mmol/L (98-107); Estimated GFR 38.51 (mL/min/1.73m2); Glucose 132 mg/dL (74-106); Potassium 3.7 mmol/L (3.5-5.1); Sodium 142 mmol/L (136-145)
[2024-08-23 07:44] VITALS: BP 94/66; PULSE 76; RESP 20; TEMP 35.9; O2SAT 100
[2024-08-23 07:55] VITALS: O2SAT 100; O2SAT 95
[2024-08-23] MEDS: Tiotropium/Olodaterol 10 PUFF INHALER 2 PUFF IH (07:55)
[2024-08-23] MEDS: dilTIAZem 30 MG TAB 60 MG PO (08:29)
[2024-08-23] MEDS: Furosemide 40 MG TAB 80 MG PO (08:29)
[2024-08-23] MEDS: Sucralfate 1 GM TAB PO (08:29)
[2024-08-23] MEDS: Magnesium Oxide 400 MG TAB PO (08:29)
[2024-08-23] MEDS: Cefpodoxime 200 MG TAB PO (08:29)
[2024-08-23] MEDS: Atorvastatin 40 MG TAB 80 MG PO (08:29)
[2024-08-23] MEDS: Potassium Chloride 20 MEQ TABCR PO (08:29)
[2024-08-23] MEDS: Multivitamin TAB 1 TAB PO (08:30)
[2024-08-23] MEDS: Normal Saline Flush 10 ML SYR IVP (08:30)
[2024-08-23] MEDS: Metoprolol 50 MG TAB 100 MG PO (08:30)
[2024-08-23] MEDS: Empaglifozin 10 MG TAB PO (08:30)
[2024-08-23] MEDS: Apixaban 5 MG TAB PO (08:30)
--- NOTE | 2024-08-23 09:29 | W.PM.DS.N ---
Date of service: 08/23/24 Time of Service: 09:29 DS: Diagnosis Discharge Diagnosis (1) Atrial fibrillation with rapid ventricular response: Status: Acute (2) Heart failure with preserved ejection fraction (HFpEF, >= 50%): Status: Acute (3) Acute hypokalemia: Status: Acute (4) Hypomagnesemia: (5) Acute UTI: Status: Acute (6) Severe sepsis: Status: Acute (7) Pleural effusion: Status: Acute (8) COPD (chronic obstructive pulmonary disease): Status: Acute (9) Chronic hypoxic respiratory failure, on home oxygen therapy: Status: Acute (10) NATHAN (obstructive sleep apnea): Status: Chronic (11) Cardiac pacemaker in situ: (12) HLD (hyperlipidemia): (13) Depressive disorder: (14) Diabetes: (15) Hx of CABG: Discharge Plan Disposition Patient Disposition: [facility] Condition: Good Discharge Details Reason For Visit: UTI Admit Date/Time: 08/18/24 16:09 Admit Provider: Andre Alvarado Attending Provider: Andre Alvarado Primary Care Provider: Zeus Hebert Hospital Course Hospital Course: Patient initially presented with signs and symptoms consistent with A-fib RVR likely exacerbated by urinary tract infection severe sepsis. Prior to arrival patient was confused likely due to her UTI leading to her not having taken her home medication regimen likely resulting in her A-fib RVR. She was on dill drip initially but has since been transitioned to a regimen of 60 mg p.o. Dilt twice daily, and Lopressor 100 mg twice daily with normal sinus rhythm heart rates in the 70s to 80s. Additionally, adjusting her diltiazem metoprolol allowed for appropriate blood pressure to diurese the patient as she was showing signs of heart failure and fluid overload. She was treated with 40 mg of IV Lasix twice daily and had significant urine output and improvement in her lower extremity edema. It is recommended that she have 80 mg of p.o. Lasix twice daily for an additional few days before going back to her regular home dose of 40 mg p.o. twice daily. Additionally, patient was noted as having left upper extremity swelling and ultrasound showed superficial thrombophlebitis in the cephalic vein. It is recommended patient have warm compresses and elevate her arm when able. Otherwise, it was determined that the patient was stable for discharge. Home Meds and New Rx's Prescriptions: New diltiazem HCl 30 mg Tablet 60 mg PO BID Qty: 90 0RF Continued sucralfate 1 gram tablet 1 g PO AC & HS atorvastatin 80 mg tablet 80 mg PO DAILY duloxetine 30 mg capsule,delayed release(DR/EC) 30 mg PO QPM Eliquis 5 mg tablet 5 mg PO BID famotidine 20 mg tablet 20 mg PO DAILY trazodone 50 mg tablet 50 mg PO HS furosemide 40 mg tablet 40 mg PO BID Qty: 0 0RF insulin aspart U-100 [Novolog FlexPen U-100 Insulin] 100 unit/mL (3 mL) insulin pen 10 unit SUBCUT TID insulin glargine [Lantus Solostar U-100 Insulin] 100 unit/mL (3 mL) insulin pen 58 unit subcut QPM Qty: 0 0RF Lumigan 0.01 % drops 1 drp ophthalmic (eye) QPM multivitamin [Daily Multi-Vitamin] Tablet 1 tab PO DAILY Stiolto Respimat 2.5-2.5 mcg/actuation mist 2 inh inhalation DAILY Jardiance 10 mg Tablet 10 mg PO QAM Qty: 90 0RF bisacodyl 10 mg suppository 10 mg IN DAILY PRN magnesium hydroxide [Dulcolax (magnesium hydroxide)] 400 mg/5 mL suspension 30 ml PO QHS PRN (Reason: constipation) polyethylene glycol 3350 [ClearLax] 17 gram/dose powder 17 g PO DAILY PRN (Reason: constipation) Enema 19-7 gram/118 mL enema 118 ml IN DAILY PRN Changed metoprolol tartrate 100 mg tablet 100 mg PO BID Qty: 0 0RF Discontinued diltiazem HCl 240 mg capsule,extended release 24hr 240 mg PO DAILY Qty: 90 3RF metoprolol tartrate 25 mg tablet 25 mg PO DAILY Discharge Instructions Activity:: Activity as Tolerated Equipment/Supplies:: No Equipment Needed Diet:: As Tolerated Discharge Orders Discharge Orders: Discharge Order (Routine); Ordered 08/23/24 Ordered By: Sky Odell DS: Summary Time Spent with Patient providing and/or coordinating discharge services: Greater than 30 minutes Status at Discharge Functional status at discharge: independent ambulation Overall status at discharge: patient is back to baseline Mental Status: mental status grossly normal Speech and Movement: speech and movement normal Mood: congruent mood Affect: normal affect Quality:SDOH Health Related Social Needs: Health related social needs housing instability, housed, with risk of homelessness (Z59.811), education (Z55.6) Exam Narrative Exam Narrative: chronically ill appearing older female laying in bed in no acute distress, AOx4, 1L NC in place, heart RRR, lungs CTAB, abdomen obese, soft, non-tender, non-distended, +12 pitting edema in bilateral LE to just below the knees though improved as compared to previous day, unilateral LUE swelling Psych Mental Status: mental status grossly normal Speech and Movement: speech and movement normal Mood: congruent mood Affect: normal affect DS: Data Vitals/I&O Vitals and I&O: Vital Signs Temperature 96.6 F L 08/23/24 07:44 Temperature Source Temporal Artery Scan 08/23/24 07:44 Pulse 76 08/23/24 07:44 Pulse 80 08/22/24 16:14 Respiratory Rate 20 08/23/24 07:44 Respiratory Effort Normal, Non-Labored 08/18/24 16:15 Respiratory Depth Normal 08/18/24 16:15 Respiratory Pattern Tachypnea 08/18/24 18:00 Blood Pressure 94/66 L 08/23/24 07:44 Blood Pressure Mean 75 08/23/24 07:44 Blood Pressure Position Supine 08/18/24 18:00 Pulse Oximetry 95 08/23/24 07:55 Oxygen Delivery Method Room Air 08/23/24 07:55 Oxygen Flow Rate 0 08/23/24 07:55 Pain Level 0 08/23/24 07:44 Comment RN notified 08/23/24 07:44 Intake & Output 08/22/24 08/23/24 08/23/24 17:59 05:59 17:59 Intake Total 1415 / 1415 1424 Output Total 1390 / 1390 1600 / 2990 575 / 575 Balance -1590 / -1565 -575 / -575 Weight 250 lb 9.6 oz Intake: IV Oral 1415 / 1415 Output: Urine 1390 / 1390 1600 / 2990 575 / 575 Other: Urine Color Yellow Straw Yellow Urine Appearance Clear Clear Clear Data Completed and Pending Labs on day of discharge: Labs from last 24 hours 08/23/24 06:05 WBC 8.56 RBC 3.55 L Hgb 9.6 L Hct 32.2 L MCV 91 MCH 27.0 MCHC 29.8 L RDW 17.4 H Plt Count 243 MPV 11.8 H Sodium 142 Potassium 3.7 Chloride 104 Carbon Dioxide 36.6 H Anion Gap 1.4 L BUN 28 H Creatinine 1.4 H Est GFR (CKD-EPI 2020) 38.51 Glucose 132 H Calcium 9.0 Preliminary micro results at discharge 08/18/24 13:23 Blood Blood Culture - Preliminary NO GROWTH 96 HOURS 08/18/24 13:23 Blood Blood Culture - Preliminary NO GROWTH 96 HOURS PFSH All Active Problems (Updated 08/23/24 @ 09:29 by kSy Odell MD) Chronic hypoxic respiratory failure, on home oxygen therapy (Acute) Pneumonia (Acute) Pleural effusion (Acute) Elevated lactic acid level (Acute) Acute UTI (Acute) Congestive heart failure (Chronic) Fall (Acute) Acute hypokalemia (Acute) Atrial fibrillation with RVR (Acute) Left shoulder pain (Acute) Severe sepsis (Acute) Sepsis (Acute) Need for home health care (Acute) ACP (advance care planning) (Acute) Palliative care encounter (Acute) Heart failure with preserved ejection fraction (HFpEF, >= 50%) (Acute) Decubitus ulcer of sacral region (Acute) NATHAN (obstructive sleep apnea) (Chronic) Yeast infection of the skin (Acute) Respiratory failure (Acute) Asthma (Chronic) Elevated BUN (Acute) Atrial fibrillation with rapid ventricular response (Acute) COPD (chronic obstructive pulmonary disease) (Acute) Chronic obstructive pulmonary disease with (acute) exacerbation (Acute) Medical History (Updated 08/23/24 @ 09:29 by Sky Odell MD) Hypomagnesemia Hypokalemia Class 3 obesity Chronic respiratory failure with hypercapnia CKD (chronic kidney disease) stage 3, GFR 30-59 ml/min Atrial fibrillation Type 2 diabetes mellitus without complications HTN (hypertension) Depressive disorder GERD (gastroesophageal reflux disease) Cardiac pacemaker in situ placed 04/22/2022 in [place]. Kaylee ZURITA [id number] SERIAL # [id number] RH ENTERED 04/17/24 Loose left total knee arthroplasty Contusion of toe, left Dermal mycosis Thyroid nodule Diabetic peripheral neuropathy Vitamin D deficiency Hyperparathyroidism HLD (hyperlipidemia) Anemia Leukocytosis Cellulitis Stress incontinence Diabetes Anxiety Surgical History S/P AVR replaced with bovine valve Hx of CABG Family History Father Bone cancer Mother Myocardial infarction Brother Myocardial infarction Social History Smoking/Tobacco Use Status: Former Tobacco Use Smoking risk assessment performed?: Yes Alcohol Intake: never Drug use: Never Substance use type: does not use Housing: apartment Do you feel safe at home: Yes Do you feel safe in your relationship?: Yes Additional Social history: at [facility] Time Spent with Patient Time Spent with Patient: <45 minutes Time was spent: preparing to see the patient(eg.review tests), obtaining and/or reviewing separately otained hiistory, ordering medications,tests, procedures, referring, communicating with other health healthcare administration intern, indepentently interpreting results, counseling the patient and care coordination
--- NOTE | 2024-08-23 09:34 | PTTR_ITS ---
PT Notes Visit Reasons: Urinary tract infection Inpatient Physical Therapy Treatment Note [facility] Date:08/23/2024 PRECAUTIONS:IV access BUE Oxygen to keep sate 88-92% (currently on RA), roxyetry, Elizabeth SUBJECTIVE: Pt reports she feels much better. OBJECTIVE: supine in bed . in to see pt during start of session and notified pt of superficial blood clot in LUE. Pt with pitting edema to L hand and forearm Pain: denied VITALS: monitored via telemetry throughout ? Therapeutic Activities (03004): Direct one-on-one instruction in dynamic activities to improve functional performance. ?? Provided skilled cues and instruction on performance and technique throughout. ? TRANSFERS sit to/from stand at FWW with min A of 2 x 2 trials pt able to marchin place. Attempted step turn with FWW however on wt shift to left pt knee instability noted therefore required use of Stedylift for transfer? Pt able to tolerate stand at FWW with min A of 2 x 30 sec x 2 with sit rest between? Sit-stand: pull to stand at Stedy lift with min A of 1 from bed ? ?SBA of 2nd ? Stand-sit: min A to lower from stedylift to chair ? Pt stood in stedy lift with CGAof 2 x 1 min without support at buttocks, Pt also able to tolerate WB through BLE x 3 mins with support at buttocks from stedy lift. Pt able to sustain oxygen saturation >88% while standing with supplemental oxygen. ? ASSESSMENT:? Pt nikhil. session well. Pt able to progress with standing at FWW for short time able to unweight BLE /marching in place however unable to perform step turn d/t left knee instability during step turn. Pt will benefit from continued PT at SNF to return to prior level of step turn transfer with FWW PLAN: 1-2x/day, 7 days/week x 1 week. Plan of care has been reviewed with the PHYSICS AND ASTRONOMY PROFESSOR providing the service under Physical Therapy direction. Initiate Physical Therapy intervention for strengthening, bed mobility, transfers, gait, balance training, use of assistive device. TREATMENT CODE/TIME: [id number]/0982-0570 DISCHARGE RECOMMENDATION: SNF with cont PT
--- NOTE | 2024-08-23 10:00 | PDOC.CMDIS ---
Date of service: 08/23/24 Time of Service: 10:00 LACE Index Scoring Tool Questions: Length of Stay (in days): 4 - 6 Was the patient admitted via the E.D.?: Yes Comorbidities: Diabetes w/o Complication, Chronic Pulmonary Disease and Mild Liver/Renal Disease E.D. Visits: 6 Answers: Total Score: 16 Risk of Readmission: High Risk Care Management Discharge Plan Reason for Hospitalization: afib with RVR Discharge Plan: Jessa will be discharged back to the [facility] today. She will f/u with the facility provider and continue per her plan of care. Jessa will transport via [facility] wheelchair van as coordinated by CM. Patient/Family Education Needs: Review of discharge instructions, activity, limitations and discuss, Ask me 3. SDOH Health Related Social Needs: Health related social needs housing instability, housed, with risk of homelessness (Z59.811), education (Z55.6)
[2024-08-23 19:45] VITALS: BP 114/49; PULSE 76; RESP 18; TEMP 36.9; O2SAT 90
== END 2024-08-23 11:18 | disposition skilled nursing facility (03) | DRG 871 ==
LOC: ER 15:46 → ICU 17:49 → MS 08-22 21:02
PROVIDERS: Family Medicine; Admitting Provider Hospitalist; Emergency Provider Emergency Medicine Emergency Medical Services; PCP Student in an Organized Health Care Education/Training Program; Responsible Provider Family Medicine; Visit Provider Hospitalist
DX: A41.9 Sepsis, unspecified organism (principal); I50.33 Acute on chronic diastolic (congestive) heart failure; N39.0 Urinary tract infection, site not specified; J44.1 Chronic obstructive pulmonary disease with (acute) exacerbation; Z68.42 Body mass index [BMI] 45.0-49.9, adult; I13.0 Hypertensive heart and chronic kidney disease with heart failure and stage 1 through stage 4 chronic kidney disease, or unspecified chronic kidney disease; J96.11 Chronic respiratory failure with hypoxia; T80.1XXA Vascular complications following infusion, transfusion and therapeutic injection, initial encounter; I48.91 Unspecified atrial fibrillation; R65.20 Severe sepsis without septic shock; E87.6 Hypokalemia; E83.42 Hypomagnesemia; G47.33 Obstructive sleep apnea (adult) (pediatric); Z95.0 Presence of cardiac pacemaker; M25.512 Pain in left shoulder; E78.5 Hyperlipidemia, unspecified; F32.A Depression, unspecified; E04.2 Nontoxic multinodular goiter; Z95.1 Presence of aortocoronary bypass graft; Z99.81 Dependence on supplemental oxygen; I25.2 Old myocardial infarction; Z79.01 Long term (current) use of anticoagulants; E66.813 Obesity, class 3; D64.9 Anemia, unspecified; E11.42 Type 2 diabetes mellitus with diabetic polyneuropathy; E11.22 Type 2 diabetes mellitus with diabetic chronic kidney disease; N18.30 Chronic kidney disease, stage 3 unspecified; Z95.3 Presence of xenogenic heart valve; W19.XXXA Unspecified fall, initial encounter; B96.89 Other specified bacterial agents as the cause of diseases classified elsewhere; I80.8 Phlebitis and thrombophlebitis of other sites
CPT/HCPCS: 93288; 00123; 36415; 51702; 71250; 80048; 80053; 82550; 85027; 87040; 87077; 87637; 93005; 94640; 94761; 96365; 96367; 96375; 96376; 97162; 97530; 99222; 99291; 70450; 71045; 72125; 74176; 76536; 80202; 81003; 81015; 83605; 83735; 83880; 84439; 84443; 84484; 85025; 87086; 87186; 93010; 93306; 93971; 94664; 94760; 99223; 99232; 99233; 99239; J0696; J1630; J1815; J1938; J2405; J2543; J3370; J3372; J3475; J3480; P9047

== ENCOUNTER → 2024-08-21 11:00 | Outpatient (BNVA) | payer MEDICARE, MEDICAID, SELFPAY | PROVIDERS: PCP Student in an Organized Health Care Education/Training Program; Referring Provider Student in an Organized Health Care Education/Training Program; Visit Provider Student in an Organized Health Care Education/Training Program | CPT/HCPCS: 93280 ==

== ENCOUNTER 2024-08-30 16:54 | Outpatient (REF) | payer SELFPAY ==
[2024-08-30 17:29] LABS: Bilirubin Negative (Negative); Blood Negative (Negative); Clarity Clear (Clear); Glucose 500 mg/dL (Negative); Ketones Negative (Negative); Leukocyte Esterase Negative (Negative); Nitrite Negative (Negative); Urobilinogen 0.2 mg/dL (Up to 0.2)
== END 2024-08-30 16:55 | disposition home or self-care (01) ==
LOC: LBN 16:54
PROVIDERS: PCP Student in an Organized Health Care Education/Training Program; Visit Provider Family Medicine
DX: N39.0 Urinary tract infection, site not specified (principal)
CPT/HCPCS: 81003; 87086

== ENCOUNTER 2024-09-19 18:01 | Outpatient (REF) | payer MEDICARE, MEDICAID, SELFPAY ==
[2024-09-19 15:52] LABS: Abs Immature Grans 0.01 10^3/uL (0.0-0.06); Absolute Basophil Count 0.01 10^3/uL (0.0-0.2); Absolute Eosinophil Count 0.14 10^3/uL (0.0-0.7); Absolute Lymphocyte Count 0.28 10^3/uL (1.2-3.4); Absolute Monocyte Count 0.17 10^3/uL (0.1-0.8); Absolute Neutrophil Count 1.93 10^3/uL (1.2-6.7); Basophils % 0.4 %; Eosinophils % 5.5 %; Immature Grans % 0.4 %; MCH 31.9 pg (27.0-33.0); MCV 100 fL (80-95); MPV 9.5 fL (8.0-11.0); Monocytes % 6.7 %; Platelet Count 161 10^3/uL (130-400); RBC 2.51 10^6/uL (3.93-5.22); RDW 14.8 % (11.7-14.6); RDW-SD 54.2 fL; WBC 2.54 10^3/uL (4.4-10.8)
[2024-09-19 16:29] LABS: Anion Gap 6.7 mmol/L (3-11); BUN 23 mg/dL (7-18); CO2 27.3 mmol/L (21.0-32.0); CREATININE 1.3 mg/dL (0.55-1.02); Calcium 8.1 mg/dL (8.5-10.1); Calculated LDL 69 mg/dL (<100); Chloride 105 mmol/L (98-107); Cholesterol 141 mg/dL (<200); Estimated GFR 41.83 (mL/min/1.73m2); Glucose 167 mg/dL (74-106); HDL Cholesterol 39 mg/dL (>or=50); Potassium 3.2 mmol/L (3.5-5.1); Sodium 139 mmol/L (136-145); Triglyceride 166 mg/dL (<150)
[2024-09-20 15:31] LABS: Hemoglobin A1C 5.5 % (<5.7)
== END 2024-09-19 18:02 | disposition home or self-care (01) ==
LOC: LBN 18:01
PROVIDERS: PCP Student in an Organized Health Care Education/Training Program; Visit Provider Family Medicine
DX: I50.33 Acute on chronic diastolic (congestive) heart failure (principal)
CPT/HCPCS: 80048; 80061; 83036; 85025

== ENCOUNTER 2024-10-29 16:34 | Outpatient (REF) | payer MEDICARE, MEDICAID, SELFPAY ==
[2024-10-29 14:05] LABS: Potassium 2.6 mmol/L (3.5-5.1)
== END 2024-10-29 16:35 | disposition home or self-care (01) ==
LOC: LBN 16:34
PROVIDERS: PCP Student in an Organized Health Care Education/Training Program; Visit Provider Nurse Practitioner Adult Health
DX: I50.33 Acute on chronic diastolic (congestive) heart failure (principal)
CPT/HCPCS: 84132

== ENCOUNTER 2024-10-30 15:19 | Outpatient (REF) | payer MEDICARE, MEDICAID, SELFPAY ==
[2024-10-30 15:36] LABS: Anion Gap 7.9 mmol/L (3-11); BUN 21 mg/dL (7-18); CO2 33.1 mmol/L (21.0-32.0); Calcium 9.6 mg/dL (8.5-10.1); Chloride 93 mmol/L (98-107); Estimated GFR 51.11 (mL/min/1.73m2); Glucose 294 mg/dL (74-106); Magnesium 1.4 mg/dL (1.8-2.4); Potassium 3.4 mmol/L (3.5-5.1); Sodium 134 mmol/L (136-145)
== END 2024-10-30 15:20 | disposition home or self-care (01) ==
LOC: LBN 15:19
PROVIDERS: PCP Student in an Organized Health Care Education/Training Program; Visit Provider Nurse Practitioner Adult Health
DX: E87.6 Hypokalemia (principal)
CPT/HCPCS: 80048; 83735

== ENCOUNTER 2024-11-05 16:22 | Outpatient (REF) | payer MEDICARE, MEDICAID, SELFPAY ==
[2024-11-05 10:26] LABS: Potassium 2.9 mmol/L (3.5-5.1)
== END 2024-11-05 16:23 | disposition home or self-care (01) ==
LOC: LBN 16:22
PROVIDERS: PCP Student in an Organized Health Care Education/Training Program; Visit Provider Nurse Practitioner Adult Health
DX: E87.6 Hypokalemia (principal)
CPT/HCPCS: 84132

== ENCOUNTER 2024-11-12 14:55 | Outpatient (REF) | payer MEDICARE, MEDICAID, SELFPAY ==
[2024-11-12 17:25] LABS: Potassium 3.5 mmol/L (3.5-5.1)
== END 2024-11-12 14:56 | disposition home or self-care (01) ==
LOC: LBN 14:55
PROVIDERS: PCP Student in an Organized Health Care Education/Training Program; Visit Provider Family Medicine
DX: E87.6 Hypokalemia (principal)
CPT/HCPCS: 84132

== ENCOUNTER 2024-11-18 14:24 | Outpatient (REF) | payer MEDICARE, MEDICAID, SELFPAY ==
[2024-11-18 15:13] LABS: Anion Gap 6.2 mmol/L (3-11); BUN 17 mg/dL (7-18); CO2 34.8 mmol/L (21.0-32.0); Calcium 8.8 mg/dL (8.5-10.1); Chloride 96 mmol/L (98-107); Estimated GFR 51.11 (mL/min/1.73m2); Glucose 185 mg/dL (74-106); NT-proBNP 5167 pg/mL (<300); Sodium 137 mmol/L (136-145)
[2024-11-18 15:27] LABS: Potassium 2.8 mmol/L (3.5-5.1)
== END 2024-11-18 14:25 | disposition home or self-care (01) ==
LOC: LBN 14:24
PROVIDERS: PCP Student in an Organized Health Care Education/Training Program; Visit Provider Nurse Practitioner Adult Health
DX: E87.6 Hypokalemia (principal)
CPT/HCPCS: 80048; 83880

== ENCOUNTER 2024-11-21 18:16 | Outpatient (REF) | payer MEDICARE, MEDICAID, SELFPAY ==
[2024-11-21 16:50] LABS: Potassium 3.5 mmol/L (3.5-5.1)
== END 2024-11-21 18:17 | disposition home or self-care (01) ==
LOC: LBN 18:16
PROVIDERS: PCP Student in an Organized Health Care Education/Training Program; Visit Provider Family Medicine
DX: E87.6 Hypokalemia (principal)
CPT/HCPCS: 84132

== ENCOUNTER 2024-11-30 21:37 | Outpatient (REF) | payer MEDICARE, MEDICAID, SELFPAY ==
[2024-11-30 18:23] LABS: Glucose 100 mg/dL (Negative)
[2024-11-30 18:30] LABS: WBC >50 HPF (0-5)
== END 2024-11-30 21:38 | disposition home or self-care (01) ==
LOC: LBN 21:37
PROVIDERS: PCP Student in an Organized Health Care Education/Training Program; Visit Provider Family Medicine
DX: A41.9 Sepsis, unspecified organism (principal); N39.0 Urinary tract infection, site not specified; J90 Pleural effusion, not elsewhere classified; B96.29 Other Escherichia coli [E. coli] as the cause of diseases classified elsewhere; R82.89 Other abnormal findings on cytological and histological examination of urine
CPT/HCPCS: 87077; 81003; 81015; 87086; 87186

== ENCOUNTER 2024-12-03 17:48 | Outpatient (REF) | payer MEDICARE, SELFPAY ==
[2024-12-03 13:48] LABS: Abs Immature Grans 0.06 10^3/uL (0.0-0.06); HCT 39.6 % (36.0-46.0); HGB 12.7 g/dL (11.2-15.7); Immature Grans % 0.6 %; MCH 28.9 pg (27.0-33.0); MCHC 32.1 % (32.0-36.0); MCV 90 fL (80-95); MPV 13.4 fL (8.0-11.0); Platelet Count 241 10^3/uL (130-400); RBC 4.39 10^6/uL (3.93-5.22); RDW 20.6 % (11.7-14.6); RDW-SD 68.4 fL; WBC 9.88 10^3/uL (4.4-10.8)
[2024-12-03 14:15] LABS: Anion Gap 5.8 mmol/L (3-11); BUN 21 mg/dL (7-18); CO2 33.2 mmol/L (21.0-32.0); Calcium 8.8 mg/dL (8.5-10.1); Chloride 96 mmol/L (98-107); Estimated GFR 51.11 (mL/min/1.73m2); Glucose 242 mg/dL (74-106); Magnesium 1.2 mg/dL (1.8-2.4); Potassium 3.5 mmol/L (3.5-5.1); Sodium 135 mmol/L (136-145)
[2024-12-03 15:40] LABS: Anisocytosis 1+
== END 2024-12-03 17:49 | disposition home or self-care (01) ==
LOC: LBN 17:48
PROVIDERS: PCP Student in an Organized Health Care Education/Training Program; Visit Provider Family Medicine
DX: I50.33 Acute on chronic diastolic (congestive) heart failure (principal)
CPT/HCPCS: 80048; 83735; 85025

== ENCOUNTER 2024-12-05 11:23 | Outpatient (CLI) | payer MEDICARE, SELFPAY ==
--- NOTE | 2024-12-05 11:30 | RT.EKG_ITS ---
APPROVED REPORT Exam: Resting ECG Reason for Exam: ARRYTHMIA FOR PAST 3 DAYS Patient Location: O HR:140 bpm ECG Measurements Heart Rate 140 AXIS CO [id number] P [id number] QRSd 83 QRS -24 QT 329 T 54 QTc 502 Conclusion Atrial fibrillation with rapid V-rate...A-rate 285 Borderline left axis deviation...QRS axis (-15,-29)
== END 2024-12-05 11:24 | disposition home or self-care (01) ==
PROVIDERS: PCP Student in an Organized Health Care Education/Training Program; Visit Provider Family Medicine
DX: I49.9 Cardiac arrhythmia, unspecified (principal)
CPT/HCPCS: 93005; 93010

== ENCOUNTER 2024-12-05 13:25 | Inpatient (IN) | payer MEDICARE, SELFPAY ==
[2024-12-05] VITALS (67 sets, daily range): BP systolic 66–141; BP diastolic 22–116; PULSE 75–150; RESP 9–32; TEMP 36.2–36.9; O2SAT 88–100
[2024-12-05 14:45] LABS: Abs Immature Grans 0.05 10^3/uL (0.0-0.06); HCT 43.5 % (36.0-46.0); HGB 13.7 g/dL (11.2-15.7); Immature Grans % 0.6 %; MCH 28.7 pg (27.0-33.0); MCHC 31.5 % (32.0-36.0); MCV 91 fL (80-95); RBC 4.77 10^6/uL (3.93-5.22); RDW 21.0 % (11.7-14.6); RDW-SD 69.8 fL; WBC 8.37 10^3/uL (4.4-10.8)
--- NOTE | 2024-12-05 14:52 | W.ED.GENAD ---
Discharge Plan Disposition Patient Disposition: Admit to [facility] Condition: Serious Discharge Details Clinical Impression: Acute hypotension, Dementia, Atrial fibrillation, Hypomagnesemia, Bacterial UTI Primary Care Provider: Zeus Hebert ED Provider: Steve Sidhu Home Meds and New Rx's Prescriptions: No Action insulin glargine [Lantus Solostar U-100 Insulin] 100 unit/mL (3 mL) insulin pen 60 unit subcut QPM metoprolol succinate 100 mg tablet extended release 24 hr 100 mg PO DAILY venlafaxine 150 mg capsule,extended release 24hr 150 mg PO DAILY sucralfate 1 gram tablet 1 g PO AC & HS atorvastatin 80 mg tablet 80 mg PO DAILY Eliquis 5 mg tablet 5 mg PO BID famotidine 20 mg tablet 20 mg PO DAILY trazodone 50 mg tablet 50 mg PO HS furosemide 40 mg tablet 40 mg PO BID Qty: 0 0RF insulin aspart U-100 [Novolog FlexPen U-100 Insulin] 100 unit/mL (3 mL) insulin pen 5 unit SUBCUT TID Lumigan 0.01 % drops 1 drp ophthalmic (eye) QPM multivitamin [Daily Multi-Vitamin] Tablet 1 tab PO DAILY Stiolto Respimat 2.5-2.5 mcg/actuation mist 2 inh inhalation DAILY Jardiance 10 mg Tablet 10 mg PO QAM Qty: 90 0RF diltiazem HCl 30 mg Tablet 60 mg PO BID Qty: 90 0RF magnesium 200 mg tablet 200 mg PO BID ciprofloxacin HCl 500 mg tablet 500 mg PO BID Rx Instructions: For e-coli UTI- started 12/03/24; take for 7 days potassium chloride 20 mEq tablet,ER particles/crystals 20 meq PO BID HPI General Mode of arrival: EMS. Date/Time Provider Initiated Documentation: 12/05/24 13:37. Limitations to Documentation: altered mental status. Information obtained by: patient, RN/MD and EMS. HPI Narrative: 79-year-old female with multiple medical problems including history of dementia, atrial fibrillation, COPD, diabetes, hypertension, hyperlipidemia, transferred from assisted with concern for low blood pressure. Patient has altered mental status, presumed from dementia and is poor historian. She denies pain. She has no complaints. Patient resides in assisted and is nonambulatory at baseline per nursing. Related Data Home Medications ?Medication ?Instructions ?Recorded ?Confirmed apixaban 5 mg tablet (Eliquis) 5 mg PO BID 12/19/23 12/05/24 atorvastatin 80 mg tablet 80 mg PO DAILY 12/19/23 12/05/24 famotidine 20 mg tablet 20 mg PO DAILY 12/19/23 12/05/24 trazodone 50 mg tablet 50 mg PO HS 12/19/23 12/05/24 sucralfate 1 gram tablet 1 g PO AC & HS 04/09/24 12/05/24 furosemide 40 mg tablet 40 mg PO BID #0 tabs 05/29/24 12/05/24 bimatoprost 0.01 % eye drops 1 drp ophthalmic (eye) QPM 07/08/24 12/05/24 (Lumigan) multivitamin (Daily Multi-Vitamin 1 tab PO DAILY 07/08/24 12/05/24 tablet) tiotropium 2.5 mcg-olodaterol 2.5 2 inh inhalation DAILY 07/08/24 12/05/24 mcg/actuation mist for inhalation (Stiolto Respimat) empagliflozin 10 mg tablet 10 mg PO QAM #90 tabs 07/12/24 12/05/24 (Jardiance) diltiazem HCl 30 mg tablet 60 mg (2 x 30 mg) PO BID #90 tabs 08/23/24 12/05/24 insulin aspart U-100 100 unit/mL 5 unit subcut TID 11/14/24 12/05/24 (3 mL) subcutaneous pen (Novolog FlexPen U-100 Insulin aspart) insulin glargine 100 unit/mL (3 60 unit subcut QPM 11/14/24 12/05/24 mL) subcutaneous pen (Lantus Solostar U-100 Insulin) metoprolol succinate 100 mg 100 mg PO DAILY 11/14/24 12/05/24 tablet,extended release 24 hr venlafaxine 150 mg 150 mg PO DAILY 11/14/24 12/05/24 capsule,extended release 24 hr ciprofloxacin HCl 500 mg tablet 500 mg PO BID 12/05/24 12/05/24 magnesium 200 mg tablet 200 mg PO BID 12/05/24 12/05/24 potassium chloride 20 mEq 20 meq PO BID 12/05/24 12/05/24 tablet,extended release(part/cryst) Previous Rx's ?Medication ?Instructions ?Recorded furosemide 40 mg tablet 40 mg PO BID #0 tabs 02/26/25 empagliflozin 10 mg tablet 10 mg PO QAM #90 tabs 07/12/24 (Jardiance) diltiazem HCl 30 mg tablet 60 mg (2 x 30 mg) PO BID #90 tabs 08/23/24 Allergies Allergy/AdvReac Type Severity Reaction Status Date / Time gabapentin Allergy Unknown Unverified 12/05/24 13:47 pantoprazole Allergy Unknown Unverified 12/05/24 13:47 semaglutide (From Ozempic) Allergy Unknown Unverified 12/05/24 13:47 General Stated Complaint: Palpitatns ZARIA: 3 Review of Systems Unobtainable due to mental status Exam Const General: cooperative and no acute distress HENMT Head: normocephalic and atraumatic Mouth: mucous membranes dry Eyes Conjunctivae: normal conjunctivae Sclera: normal sclerae Neck Neck: trachea midline and supple Resp Auscultation: clear to auscultation bilaterally, no rales, no rhonchi and no wheezes Cardio Rate: tachycardic Rhythm: abnormal rhythm and abnormal rhythm irregularly irregular GI Palpation: soft, not firm, no guarding, no masses, not rigid and nontender Skin General skin exam: no rashes or lesions noted Neuro General: patient alert, patient awake, oriented Patient Orientation: Person and Confused and tone normal Cognition: abnormal cognition Other: Bilateral lower extremity weakness Extrem General: no edema Course Vital Signs Vital signs: Vital Signs Pulse 127 H 12/05/24 13:23 Respiratory Rate 18 12/05/24 13:23 Blood Pressure 98/52 L 12/05/24 13:23 Pulse Oximetry 99 12/05/24 13:23 Temperature 36.9 C 12/05/24 14:42 Temperature Source Oral 12/05/24 14:42 Pulse 128 H 12/05/24 14:40 Pulse 140 H 12/05/24 14:40 Respiratory Rate 20 12/05/24 14:40 Blood Pressure 74/53 L 12/05/24 14:33 Blood Pressure Mean 59 12/05/24 14:33 Pulse Oximetry 99 12/05/24 14:40 Oxygen Delivery Method Nasal Cannula 12/05/24 13:23 Oxygen Flow Rate 2 12/05/24 13:23 Pain Level 5 12/05/24 13:23 Lab/Test Results Lab/Test Results: 12/05/24 14:34 Blood Blood Culture - Pending 12/05/24 14:34 Blood Blood Culture - Pending Medical Decision Making 5 -- 79-year-old female with dementia, A-fib, multiple medical problems, presents with hypotension and rapid heart rate. Patient saturating well with no respiratory distress. Patient's heart rate is currently in the 120s. She is hypotensive with blood pressure in the 70s. She does appear dehydrated. I will give IV fluid bolus and plan to reassess. Consider other etiologies for hypotension and will check lactate, CBC and chemistry. -- I reviewed past medical record: Patient had echocardiogram May 2024 which revealed LVEF of 40 to 45% 1544 --labs reviewed: No leukocytosis. Lactate elevated 3.2. Hypomagnesemia at 1.4. I will give magnesium 2 g IV. Patient has received 1 L of crystalloid and blood pressure is improved although remains low. Patient pulled out both IVs. Nursing to reestablish access. Plan for hospitalization for further diagnostic workup and treatment. 1559 --I spoke with the hospitalist [employer] on-call, Brianda, discussed discussed ED presentation and course, she will admit the patient for further treatment and workup. 1604 --I spoke with the patient's [id number] and relayed ED course. She does note that the patient recently had a urinary tract infection and was being treated for this. I confirmed that she had pansensitive E. coli positive urine culture on 830 and she has been taking ciprofloxacin. I called and updated hospitalist as to this additional information. Lab Data Labs: 12/05/24 14:51 Blood Blood Culture - Pending 12/05/24 14:54 Blood Blood Culture - Pending Laboratory Tests Range/Units 12/05/24 12/05/24 14:00 14:54 WBC (4.4-10.8) 10^3/uL 8.37 RBC (3.93-5.22) 10^6/uL 4.77 Hgb (11.2-15.7) g/dL 13.7 Hct (36.0-46.0) % 43.5 MCV (80-95) fL 91 MCH (27.0-33.0) pg 28.7 MCHC (32.0-36.0) % 31.5 L RDW (11.7-14.6) % 21.0 H Plt Count (130-400) 10^3/uL 247 MPV (8.0-11.0) fL Immature Gran % % 0.6 Neutrophils % % 64.5 Lymphocytes % % 21.9 Monocytes % % 8.2 Eosinophils % % 4.1 Basophils % % 0.7 Nucleated RBC % (0.0-0.3) % 0.0 Absolute Neutrophils (1.2-6.7) 10^3/uL 5.40 Absolute Lymphocytes (1.2-3.4) 10^3/uL 1.83 Absolute Monocytes (0.1-0.8) 10^3/uL 0.69 Absolute Eosinophils (0.0-0.7) 10^3/uL 0.34 Absolute Basophils (0.0-0.2) 10^3/uL 0.06 RBC Morphology See Below Poikilocytosis 2+ Anisocytosis 2+ VBG Lactate (<or=2.0) mmol/L 3.2 H* Sodium (136-145) mmol/L 138 Potassium (3.5-5.1) mmol/L 3.8 Chloride (98-107) mmol/L 99 Carbon Dioxide (21.0-32.0) mmol/L 37.3 H Anion Gap (3-11) mmol/L 1.7 L BUN (7-18) mg/dL 22 H Creatinine (0.55-1.02) mg/dL 1.1 H Est GFR (CKD-EPI 2020) (mL/min/1.73m2) 51.11 Glucose (74-106) mg/dL 287 H Calcium (8.5-10.1) mg/dL 9.5 Magnesium (1.8-2.4) mg/dL 1.4 L Total Bilirubin (0.2-1.0) mg/dL 0.6 AST (15-37) U/L 25 ALT (14-59) U/L 33 Alkaline Phosphatase (46-116) U/L 159 H Troponin I (<or=51) ng/L 15 14 Total Protein (6.4-8.2) g/dL 7.5 Albumin (3.4-5.0) g/dL 2.6 L TSH (0.36-3.74) uIU/mL 3.29 Quality:SDOH Health Related Social Needs: Health related social needs risk of homeless education PFSH All Active Problems (Updated 12/05/24 @ 16:08 by Steve Sidhu MD) Bacterial UTI (Acute) Hypomagnesemia (Acute) Atrial fibrillation (Chronic) Acute hypotension (Acute) Dementia (Chronic) Cognitive change (Acute) Lives in assisted (Acute) Deficit in activities of daily living (ADL) (Acute) Chronic hypoxic respiratory failure, on home oxygen therapy (Acute) Congestive heart failure (Chronic) Need for home health care (Acute) ACP (advance care planning) (Acute) Decubitus ulcer of sacral region (Acute) Yeast infection of the skin (Acute) Respiratory failure (Acute) Asthma (Chronic) Elevated BUN (Acute) COPD (chronic obstructive pulmonary disease) (Acute) Medical History Palliative care encounter Hypomagnesemia Hypokalemia Class 3 obesity Chronic respiratory failure with hypercapnia CKD (chronic kidney disease) stage 3, GFR 30-59 ml/min Atrial fibrillation Type 2 diabetes mellitus without complications HTN (hypertension) Depressive disorder GERD (gastroesophageal reflux disease) Cardiac pacemaker in situ placed 04/22/2022 in [place]. [employer] Lottie ZURITA [id number] SERIAL # [id number] RH ENTERED 04/17/24 Loose left total knee arthroplasty Contusion of toe, left Dermal mycosis Thyroid nodule Diabetic peripheral neuropathy Vitamin D deficiency Hyperparathyroidism HLD (hyperlipidemia) Anemia Leukocytosis Cellulitis Stress incontinence Diabetes Anxiety Surgical History S/P AVR replaced with bovine valve Hx of CABG Family History Father Bone cancer Mother Myocardial infarction Brother Myocardial infarction Social History Smoking/Tobacco Use Status: Former Tobacco Use Smoking risk assessment performed?: Yes Alcohol Intake: never Drug use: Never Substance use type: does not use Housing: apartment Do you feel safe at home: Yes Do you feel safe in your relationship?: Yes Additional Social history: at [facility]
[2024-12-05 15:00] LABS: ALT 33 U/L (14-59); AST 25 U/L (15-37); Albumin 2.6 g/dL (3.4-5.0); Alkaline Phosphatase 159 U/L (46-116); Anion Gap 1.7 mmol/L (3-11); BUN 22 mg/dL (7-18); Bilirubin, Total 0.6 mg/dL (0.2-1.0); CO2 37.3 mmol/L (21.0-32.0); Calcium 9.5 mg/dL (8.5-10.1); Chloride 99 mmol/L (98-107); Estimated GFR 51.11 (mL/min/1.73m2); Glucose 287 mg/dL (74-106); Magnesium 1.4 mg/dL (1.8-2.4); Potassium 3.8 mmol/L (3.5-5.1); Sodium 138 mmol/L (136-145); Total Protein 7.5 g/dL (6.4-8.2)
[2024-12-05 15:02] LABS: Troponin I 15 ng/L (<or=51)
[2024-12-05 15:04] LABS: Anisocytosis 2+
[2024-12-05 15:05] LABS: Platelet Count 247 10^3/uL (130-400); Poikilocytes 2+
[2024-12-05 15:31] LABS: Troponin I 14 ng/L (<or=51)
[2024-12-05 15:36] LABS: TSH (W/Ref FT4) 3.29 uIU/mL (0.36-3.74)
[2024-12-05] MEDS: MAGNESIUM SULFATE 2 GM/50 ML BAG IV_INF (16:05)
--- NOTE | 2024-12-05 16:17 | W.PM.HP.N ---
Date of service: 12/05/24 Time of Service: 16:18 Assessment and Plan Assessment and plan (1) Atrial fibrillation with rapid ventricular response: Status: Resolved Assessment and plan: -Admitted with a-fib RVR with improved control s/p fluid resuscitation in the setting of probable dehydration - And administration of IV metoprolol -Metoprolol Succinate at home - divided to metoprolol tartrate and Q 6H PRN metoprolol 5 mg IV for sustained HR>130 with parameters -Diltiazem 30 mg PO TID and adjust PRN -Had been on PO dilt 60mg BID, and lopressor 100mg BID during past admission -continue home eliquis (2) Heart failure with mildly reduced ejection fraction (HFmrEF): Status: Acute Assessment and plan: LEVEF 44-45% on 08/2024 Ongoing home medicine regimen pertaining to GDMT Does not appear fluid overloaded in the ED Once normotension and rate control is achieved - will resume home dose diuretics as tolerated (3) Acute hypotension: Status: Acute Assessment and plan: Most likely in the setting of A-fib RVR w reduced filling time VS sepsis as per point 4 Resolving improved rate control and w IVF (4) Bacterial UTI: Status: Acute Assessment and plan: History pansensitive E.coli on quinolones outpatient Unclear about dysuria UA ordered but until we get results - will treat with IV ceftriaxone in the setting of point 3 and 1 despite not meeting sepsis criteria (5) Hyperlactatemia: Status: Acute Assessment and plan: lactate 3.2 IVF repeat 2.2 Most likely d/t dehydration combine with home meds VS infectious process as there is not leukocytosis, leukopenia , fever or hypothermia As per point 4 Lactate in AM (6) Elevated BUN: Status: Acute Assessment and plan: Elevated BUN and BUN /Cr ratio- might be d/t dehydration (7) Hypomagnesemia: Assessment and plan: Mg 1.6 IV supplementation in the ED On home oral replacement Labs in AM (8) COPD (chronic obstructive pulmonary disease): Status: Acute Assessment and plan: No exacerbation Continue home inhaler regimen (9) Chronic hypoxic respiratory failure, on home oxygen therapy: Status: Acute Assessment and plan: Baseline 1L NC , on 2l/min in the ED Titrate down for sat 92% (10) NATHAN (obstructive sleep apnea): Status: Resolved Assessment and plan: CPAP as per home setting (11) Cardiac pacemaker in situ: Assessment and plan: Ongoing (12) HLD (hyperlipidemia): Assessment and plan: On home dose statin (13) Depressive disorder: Assessment and plan: ongoing home meds (14) Diabetes: Assessment and plan: Gluc AC and HS long acting insulin and SSI coverage Jardiance as per HFm/rEF - (15) Hx of CABG: Assessment and plan: No ACS symptoms (16) CKD (chronic kidney disease) stage 3, GFR 30-59 ml/min: Assessment and plan: Stable Cr at baseline (17) Type 2 diabetes mellitus without complications: Assessment and plan: Gluc AC and HS (18) HTN (hypertension): Assessment and plan: on home meds regimen (19) GERD (gastroesophageal reflux disease): Assessment and plan: On home meds Discussed with Dr. Alvarado History of Present Illness History of Present Illness Chief Complaint: A-Fib w RVR Narrative: This 79 yo female with a PMHx of sever dementia, DNR/DNI, CHF w last LVEF 40-45%, atrial-fibrillation on Eliquis, metoprolol, and diltiazem, pansensitive E. coli UTI on 11/30/24 on ciprofloxacin, hyperlipidemia, DMII was sent from a local SNF with concerns for rapid heart rate. On arrival the patient was found to be in A-Fib with RVR HR 120-137, hypotensive w SBP in the mid 70's to 90's which somewhat responded to cautious IV crystalloid infusion. The patient was afebrile, denied lightheadeness, chest pain, abdominal pain, agrees with dysuria on and off. Oxygen at 2 l/min via nasal canula with sat 95-99% when seen. Blood work w/o leukocytosis, lactate at 3.2 , mag 1.6 with IV supplementation initiated , Cr 1.1 around baseline and slightly elevated BUN at 22. The patient was admitted to the medical surgical floor with telemetry. When seen HR 100-130' s, MAP 59-64 labile. IV lopressor 2.5 mg given with SBP transiently down to mid-70's -80's, correcting to 122/70 s/p 250 cc bolus; A-fib HR 107 in ICU. Repeat lactate, UA and STAT dose of oral metoprolol tartrate ordered. DNR/ DNI as per COLST. Review of Systems All systems reviewed & are unremarkable except as noted in HPI and below PFSH All Active Problems (Updated 12/05/24 @ 19:02 by Brianda Demarco APRN) Hyperlactatemia (Acute) Heart failure with mildly reduced ejection fraction (HFmrEF) (Acute) Hypertensive heart disease with heart failure with mildly reduced ejection fraction (HFmrEF) (Acute) Bacterial UTI (Acute) Hypomagnesemia (Acute) Atrial fibrillation (Chronic) Acute hypotension (Acute) Dementia (Chronic) Cognitive change (Acute) Lives in custodial (Acute) Deficit in activities of daily living (ADL) (Acute) Chronic hypoxic respiratory failure, on home oxygen therapy (Acute) Congestive heart failure (Chronic) Need for home health care (Acute) ACP (advance care planning) (Acute) Decubitus ulcer of sacral region (Acute) Yeast infection of the skin (Acute) Respiratory failure (Acute) Asthma (Chronic) Elevated BUN (Acute) COPD (chronic obstructive pulmonary disease) (Acute) Medical History Palliative care encounter Hypomagnesemia Hypokalemia Class 3 obesity Chronic respiratory failure with hypercapnia CKD (chronic kidney disease) stage 3, GFR 30-59 ml/min Atrial fibrillation Type 2 diabetes mellitus without complications HTN (hypertension) Depressive disorder GERD (gastroesophageal reflux disease) Cardiac pacemaker in situ placed 04/22/2022 in [place]. [employer] Lottie ZURITA [id number] SERIAL # [id number] RH ENTERED 04/17/24 Loose left total knee arthroplasty Contusion of toe, left Dermal mycosis Thyroid nodule Diabetic peripheral neuropathy Vitamin D deficiency Hyperparathyroidism HLD (hyperlipidemia) Anemia Leukocytosis Cellulitis Stress incontinence Diabetes Anxiety Surgical History S/P AVR replaced with bovine valve Hx of CABG Family History Father Bone cancer Mother Myocardial infarction Brother Myocardial infarction Social History Smoking/Tobacco Use Status: Former Tobacco Use Smoking risk assessment performed?: Yes Alcohol Intake: never Drug use: Never Substance use type: does not use Housing: apartment Do you feel safe at home: Yes Do you feel safe in your relationship?: Yes Additional Social history: at [facility] Meds Allergies and Home Medications Allergies Allergy/AdvReac Type Severity Reaction Status Date / Time gabapentin Allergy Unknown Unverified 12/05/24 13:47 pantoprazole Allergy Unknown Unverified 12/05/24 13:47 semaglutide (From Ozempic) Allergy Unknown Unverified 12/05/24 13:47 Home Medications ?Medication ?Instructions ?Recorded ?Confirmed ?Type apixaban 5 mg tablet (Eliquis) 5 mg PO BID 12/19/23 12/05/24 History atorvastatin 80 mg tablet 80 mg PO DAILY 12/19/23 12/05/24 History famotidine 20 mg tablet 20 mg PO DAILY 12/19/23 12/05/24 History trazodone 50 mg tablet 50 mg PO HS 12/19/23 12/05/24 History sucralfate 1 gram tablet 1 g PO AC & HS 04/09/24 12/05/24 History furosemide 40 mg tablet 40 mg PO BID #0 tabs 05/29/24 12/05/24 Rx bimatoprost 0.01 % eye drops 1 drp ophthalmic (eye) QPM 07/08/24 12/05/24 History (Lumigan) multivitamin (Daily Multi-Vitamin 1 tab PO DAILY 07/08/24 12/05/24 History tablet) tiotropium 2.5 mcg-olodaterol 2.5 2 inh inhalation DAILY 07/08/24 12/05/24 History mcg/actuation mist for inhalation (Stiolto Respimat) empagliflozin 10 mg tablet 10 mg PO QAM #90 tabs 07/12/24 12/05/24 Rx (Jardiance) diltiazem HCl 30 mg tablet 60 mg (2 x 30 mg) PO BID #90 tabs 08/23/24 12/05/24 Rx insulin aspart U-100 100 unit/mL 5 unit subcut TID 11/14/24 12/05/24 History (3 mL) subcutaneous pen (Novolog FlexPen U-100 Insulin aspart) insulin glargine 100 unit/mL (3 60 unit subcut QPM 11/14/24 12/05/24 History mL) subcutaneous pen (Lantus Solostar U-100 Insulin) metoprolol succinate 100 mg 100 mg PO DAILY 11/14/24 12/05/24 History tablet,extended release 24 hr venlafaxine 150 mg 150 mg PO DAILY 11/14/24 12/05/24 History capsule,extended release 24 hr ciprofloxacin HCl 500 mg tablet 500 mg PO BID 12/05/24 12/05/24 History magnesium 200 mg tablet 200 mg PO BID 12/05/24 12/05/24 History potassium chloride 20 mEq 20 meq PO BID 12/05/24 12/05/24 History tablet,extended release(part/cryst) Exam Narrative Exam Narrative: No acute distress, no acute neurological deficit, oriented to self, unlabored breathing, clear lungs, A-fib on telemetry. no perceptible murmur, abd is obese, non-distended, soft and non-tender, mood and affect are labile Results Labs 12/05/24 14:00 12/05/24 14:00 Labs: Laboratory Results - last 24 hr 12/05/24 12/05/24 14:00 14:54 WBC 8.37 RBC 4.77 Hgb 13.7 Hct 43.5 MCV 91 MCH 28.7 MCHC 31.5 L RDW 21.0 H Plt Count 247 MPV Immature Gran % 0.6 Neutrophils % 64.5 Lymphocytes % 21.9 Monocytes % 8.2 Eosinophils % 4.1 Basophils % 0.7 Nucleated RBC % 0.0 Absolute Neutrophils 5.40 Absolute Lymphocytes 1.83 Absolute Monocytes 0.69 Absolute Eosinophils 0.34 Absolute Basophils 0.06 RBC Morphology See Below Poikilocytosis 2+ Anisocytosis 2+ VBG Lactate 3.2 H* Sodium 138 Potassium 3.8 Chloride 99 Carbon Dioxide 37.3 H Anion Gap 1.7 L BUN 22 H Creatinine 1.1 H Est GFR (CKD-EPI 2020) 51.11 Glucose 287 H Calcium 9.5 Magnesium 1.4 L Total Bilirubin 0.6 AST 25 ALT 33 Alkaline Phosphatase 159 H Troponin I 15 14 Total Protein 7.5 Albumin 2.6 L TSH 3.29 Last Vital Signs Temp 36.9 C 12/05/24 14:42 Pulse 137 H 12/05/24 15:31 Resp 15 12/05/24 15:31 BP 101/55 L 12/05/24 15:31 Pulse Ox 100 12/05/24 15:02 Time Spent Time spent with Patient: >75 minutes Time was spent: preparing to see the patient(eg.review tests), obtaining and/or reviewing separately otained hiistory, ordering medications,tests, procedures, referring, communicating with other health rn care transition, indepentently interpreting results, counseling the patient, care coordination and other
[2024-12-05] MEDS: Metoprolol 5 MG/5 ML VIAL 2.5 MG IVP (17:10)
--- NOTE | 2024-12-05 17:20 | W.PC.ACHO ---
Registration Status: REG ER Primary Language: Preferred Language: ED Information & Data Chief Complaint Ron 12/05/24 14:56 Triage Note c/o rapid afib and 12/05/24 13:23 hypertension Medical / Surgical History (Last Reviewed 12/05/24 @ 14:56 by Steve Sidhu MD) Palliative care encounter Hypomagnesemia Hypokalemia Class 3 obesity Chronic respiratory failure with hypercapnia CKD (chronic kidney disease) stage 3, GFR 30-59 ml/min Atrial fibrillation Type 2 diabetes mellitus without complications HTN (hypertension) Depressive disorder GERD (gastroesophageal reflux disease) Cardiac pacemaker in situ Loose left total knee arthroplasty Contusion of toe, left Dermal mycosis Thyroid nodule Diabetic peripheral neuropathy Vitamin D deficiency Hyperparathyroidism HLD (hyperlipidemia) Anemia Leukocytosis Cellulitis Stress incontinence Diabetes Anxiety (Last Reviewed 12/05/24 @ 14:56 by Steve Sidhu MD) S/P AVR Hx of CABG Most Recent Vital Signs Temperature 36.9 C 12/05/24 14:42 Temperature Source Oral 12/05/24 14:42 Pulse 143 H 12/05/24 16:46 Pulse 126 H 12/05/24 16:20 Respiratory Rate 18 12/05/24 16:20 Blood Pressure 92/50 L 12/05/24 16:46 Blood Pressure Mean 64 12/05/24 16:46 Pulse Oximetry 100 12/05/24 16:46 Oxygen Delivery Method Nasal Cannula 12/05/24 13:23 Oxygen Flow Rate 2 12/05/24 13:23 Pain Level 5 12/05/24 13:23 Allergies gabapentin Allergy (Unverified 12/05/24 13:47) Unknown pantoprazole Allergy (Unverified 12/05/24 13:47) Unknown semaglutide (From Ozempic) Allergy (Unverified 12/05/24 13:47) Unknown Active Medications Generic Name Dose Route Start Last Admin Trade Name Freq PRN Reason Stop Dose Admin Magnesium Sulfate 2 gm in 50 mls @ 25 mls/hr 12/05/24 15:37 12/05/24 16:05 IV_INF 12/05/24 17:36 25 mls/hr NOW ONE Administration IV IV Catheter Type [Left Upper Saline Lock arm] IV Catheter Type [Right Upper Saline Lock arm] IV Catheter Type [Right Saline Lock Antecubital] IV Catheter Gauge [Left Upper 18 arm] IV Catheter Gauge [Right Upper 20 arm] IV Catheter Gauge [Right 18 Antecubital] Diet Orders Category Date Time Status Diabetes Consistent CHO/Heart Healthy [DIET] Nutrition 12/05/24 Dinner Active Diagnostics 12/05/24 12/05/24 12/05/24 Range/Units 17:35 14:54 14:00 WBC 8.37 (4.4-10.8) 10^3/uL RBC 4.77 (3.93-5.22) 10^6/uL Hgb 13.7 (11.2-15.7) g/dL Hct 43.5 (36.0-46.0) % MCV 91 (80-95) fL MCH 28.7 (27.0-33.0) pg MCHC 31.5 L (32.0-36.0) % RDW 21.0 H (11.7-14.6) % Plt Count 247 (130-400) 10^3/uL MPV (8.0-11.0) fL Immature Gran % 0.6 % Neutrophils % 64.5 % Lymphocytes % 21.9 % Monocytes % 8.2 % Eosinophils % 4.1 % Basophils % 0.7 % Nucleated RBC % 0.0 (0.0-0.3) % Absolute Neutrophils 5.40 (1.2-6.7) 10^3/uL Absolute Lymphocytes 1.83 (1.2-3.4) 10^3/uL Absolute Monocytes 0.69 (0.1-0.8) 10^3/uL Absolute Eosinophils 0.34 (0.0-0.7) 10^3/uL Absolute Basophils 0.06 (0.0-0.2) 10^3/uL RBC Morphology See Below Poikilocytosis 2+ Anisocytosis 2+ VBG Lactate 3.2 H* (<or=2.0) mmol/L Sodium 138 (136-145) mmol/L Potassium 3.8 (3.5-5.1) mmol/L Chloride 99 (98-107) mmol/L Carbon Dioxide 37.3 H (21.0-32.0) mmol/L Anion Gap 1.7 L (3-11) mmol/L BUN 22 H (7-18) mg/dL Creatinine 1.1 H (0.55-1.02) mg/dL Est GFR (CKD-EPI 2020) 51.11 (mL/min/1.73m2) Glucose 287 H (74-106) mg/dL Calcium 9.5 (8.5-10.1) mg/dL Magnesium 1.4 L (1.8-2.4) mg/dL Total Bilirubin 0.6 (0.2-1.0) mg/dL AST 25 (15-37) U/L ALT 33 (14-59) U/L Alkaline Phosphatase 159 H (46-116) U/L Troponin I Pending 14 15 (<or=51) ng/L Total Protein 7.5 (6.4-8.2) g/dL Albumin 2.6 L (3.4-5.0) g/dL TSH 3.29 (0.36-3.74) uIU/mL 12/05/24 14:51 Blood Culture - Pending Blood 12/05/24 14:54 Blood Culture - Pending Blood Intake and Output - 24 Hour Total 12/05/24 13:16 thru 12/05/24 14:36 Intake Total 500 Balance 500 Weight 100.698 kg Intake: Other 500 Problems (Last Reviewed 12/05/24 @ 14:56 by Steve Sidhu MD) Bacterial UTI (Acute) Hypomagnesemia (Acute) Atrial fibrillation (Chronic) Acute hypotension (Acute) Dementia (Chronic) v v v v v v v v v Sending and/or Receiving Nurses: Please use comment section below to note any information pertinent to the patient hand-off not included above. Information / Comments: Report received from: Elise Orourke oracle obiee developer all questions answered
[2024-12-05] MEDS: Normal Saline 250 ML IV (17:30)
[2024-12-05 18:33] LABS: Troponin I 15 ng/L (<or=51)
[2024-12-05] MEDS: Metoprolol 25 MG TAB PO (18:59)
[2024-12-05] MEDS: cefTRIAXone 1 GM/50 ML BAG IVPB (18:59)
[2024-12-05] MEDS: Sucralfate 1 GM TAB PO ×2 (18:59→22:15)
[2024-12-05 19:31] LABS: Glucose 500 mg/dL (Negative)
[2024-12-05 19:36] LABS: C & S Indicated? Yes; RBC Negative HPF (0-2)
[2024-12-05] MEDS: dilTIAZem 30 MG TAB PO (20:43)
[2024-12-05] MEDS: Magnesium Oxide 400 MG TAB 200 MG PO (20:43)
[2024-12-05] MEDS: Potassium Chloride 20 MEQ TABCR PO (20:43)
[2024-12-05] MEDS: Melatonin 3 MG TAB 9 MG PO (20:44)
[2024-12-05] MEDS: Apixaban 5 MG TAB PO (20:44)
[2024-12-05] MEDS: Insulin Glargine 300 UNITS/3 ML PEN 60 UNITS SC (20:44)
[2024-12-05] MEDS: traZODone 50 MG TAB PO (20:45)
[2024-12-05] MEDS: Normal Saline Flush 10 ML SYR IVP (20:45)
[2024-12-06] VITALS (55 sets, daily range): BP systolic 62–143; BP diastolic 40–121; PULSE 62–147; RESP 9–28; TEMP 36.5–37; O2SAT 91–99
[2024-12-06] MEDS: Metoprolol 25 MG TAB PO (00:22)
[2024-12-06] MEDS: Metoprolol 5 MG/5 ML VIAL IVP ×2 (04:09→14:48)
[2024-12-06 06:07] LABS: Abs Immature Grans 0.03 10^3/uL (0.0-0.06); HCT 39.1 % (36.0-46.0); HGB 12.2 g/dL (11.2-15.7); Immature Grans % 0.3 %; MCH 28.3 pg (27.0-33.0); MCHC 31.2 % (32.0-36.0); MCV 91 fL (80-95); MPV 12.2 fL (8.0-11.0); Platelet Count 222 10^3/uL (130-400); RBC 4.31 10^6/uL (3.93-5.22); RDW 20.6 % (11.7-14.6); RDW-SD 68.8 fL; WBC 9.02 10^3/uL (4.4-10.8)
[2024-12-06 06:25] LABS: Anion Gap 6.0 mmol/L (3-11); BUN 20 mg/dL (7-18); CO2 34.0 mmol/L (21.0-32.0); Calcium 9.3 mg/dL (8.5-10.1); Chloride 104 mmol/L (98-107); Estimated GFR 65.03 (mL/min/1.73m2); Magnesium 1.8 mg/dL (1.8-2.4); Potassium 3.2 mmol/L (3.5-5.1); Sodium 144 mmol/L (136-145)
[2024-12-06 06:28] LABS: Glucose 49 mg/dL (74-106)
[2024-12-06] MEDS: Dextrose 50%-Water 25 GM/50 ML SYR IVP (06:29)
[2024-12-06 06:36] LABS: Anisocytosis 2+; Polychromasia Present
[2024-12-06 06:37] LABS: Poikilocytes 1+
--- NOTE | 2024-12-06 08:42 | PDOC.CMIN ---
Date of service: 12/06/24 Time of Service: 08:42 Care Management Initial Assmt Initial Assessment Reason for Hospitalization: afib with RVR, hypotension Functional Status/Living Situation Patient Presentation: Jessa was transferred from [facility], where she resides, with concerns for low blood pressure. She was found to be in afib and she was dehydrated. She was admitted to ICU for further work up and monitoring. Jessa was transferred to the floor today. She was very pleasant with CM. She is known to from previous admissions. Jessa stated that she likes it OK at the halfway. She is happy that she has not had so many admissions as prior to her living there. Jessa did have some periods of confusion, but generally was able to converse. Jessa is good at pretending that she can hear, and often answers questions according to what she thinks was asked. Town of Residence: [facility] the 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) Instrumental Activities of Daily Living (ADLs): Requires support Medications Medication Management: No Issues/Barriers identified Physical Functioning/Mobility Assistive Device: wheel chair - it is reported that Jessa is not ambulatory Advance Directives Advance Directives: Do you have an Advance Directive: AD On File at [facility]: N 03/21/24, 10:05 Date Asked 12/05/24 12/05/24, 13:44 AD Date Reviewed COLST On File at [facility] COLST Date Scanned Code Status Resuscitation Status DNR/DNI Insurance Coverage/Financial Issues Insurance: Medicare Part A & B Care Team Visit Care Team Role Provider Type Brianda Demarco APRN MD [facility] STAFF PHYSICIAN Zeus Hebert Primary Care Provider NON-[facility] STAFF PHYSICIAN Olivia Braga RDN, [facility] Other Providers BARREL STAVE INSPECTOR Odin Bal RDN Other Providers BARREL STAVE INSPECTOR Steve Sidhu MD Emergency Provider [facility] STAFF PHYSICIAN Andre Alvarado MD Admit Provider [facility] STAFF PHYSICIAN Attending Provider Discharge Potential Discharge Needs: PCP F/U Appt Anticipated Barriers to Discharge: None Identified Patient/Family Education Needs: Review discharge instructions, discuss Ask Me Three Transportation: [facility] RCT Transportation: Wheel chair van Plan: Anticipate that Jessa will return to [facility] for Living once she is medically stable. She will f/u with the facility provider and continue per her plan of care. She will transport via [facility] wheel chair van. CM will continue to follow. 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) (Acute) Bacterial UTI (Acute) Hypomagnesemia (Acute) Atrial fibrillation (Chronic) Acute hypotension (Acute) Dementia (Chronic) Cognitive change (Acute) Lives in halfway (Acute) Deficit in activities of daily living (ADL) (Acute) Chronic hypoxic respiratory failure, on home oxygen therapy (Acute) Congestive heart failure (Chronic) Need for home health care (Acute) ACP (advance care planning) (Acute) Decubitus ulcer of sacral region (Acute) Yeast infection of the skin (Acute) Respiratory failure (Acute) Asthma (Chronic) Elevated BUN (Acute) COPD (chronic obstructive pulmonary disease) (Acute) Medical History Palliative care encounter Hypomagnesemia Hypokalemia Class 3 obesity Chronic respiratory failure with hypercapnia CKD (chronic kidney disease) stage 3, GFR 30-59 ml/min Atrial fibrillation Type 2 diabetes mellitus without complications HTN (hypertension) Depressive disorder GERD (gastroesophageal reflux disease) Cardiac pacemaker in situ placed 04/22/2022 in [place]. [employer] ZURITA [id number] SERIAL # [id number] RH ENTERED 04/17/24 Loose left total knee arthroplasty Contusion of toe, left Dermal mycosis Thyroid nodule Diabetic peripheral neuropathy Vitamin D deficiency Hyperparathyroidism HLD (hyperlipidemia) Anemia Leukocytosis Cellulitis Stress incontinence Diabetes Anxiety Surgical History S/P AVR replaced with bovine valve Hx of CABG Family History Father Bone cancer Mother Myocardial infarction Brother Myocardial infarction Social History Smoking/Tobacco Use Status: Former Tobacco Use Smoking risk assessment performed?: Yes Alcohol Intake: never Drug use: Never Substance use type: does not use Housing: apartment Do you feel safe at home: Yes Do you feel safe in your relationship?: Yes Additional Social history: at [facility]
[2024-12-06] MEDS: Venlafaxine 150 MG CAPCR PO (09:18)
[2024-12-06] MEDS: Sucralfate 1 GM TAB PO ×3 (09:18→21:14)
[2024-12-06] MEDS: Atorvastatin 40 MG TAB 80 MG PO (09:18)
[2024-12-06] MEDS: Magnesium Oxide 400 MG TAB 200 MG PO ×2 (09:18→21:12)
[2024-12-06] MEDS: Multivitamin TAB 1 TAB PO (09:19)
[2024-12-06] MEDS: dilTIAZem 30 MG TAB PO ×3 (09:19→21:13)
[2024-12-06] MEDS: Famotidine 20 MG TAB PO (09:19)
[2024-12-06] MEDS: Normal Saline Flush 10 ML SYR IVP ×3 (09:19→21:15)
[2024-12-06] MEDS: Potassium Chloride 20 MEQ TABCR PO ×3 (09:19→21:14)
[2024-12-06] MEDS: Empaglifozin 10 MG TAB PO (09:19)
[2024-12-06] MEDS: Apixaban 5 MG TAB PO ×2 (09:19→21:12)
--- NOTE | 2024-12-06 09:23 | PGE_ITS ---
Date of Service Date of service: 12/06/24 Time of Service: 09:23 Assessment and Plan Assessment and plan (1) Atrial fibrillation with rapid ventricular response: Status: Resolved Assessment and plan: -Admitted with a-fib RVR with improved control s/p fluid resuscitation in the setting of probable dehydration - And administration of IV metoprolol -Metoprolol Succinate at home - divided to metoprolol tartrate and increased today and Q 6H PRN metoprolol 5 mg IV for sustained HR>130 with parameters- given once overnight -Diltiazem 30 mg PO TID and adjust PRN -Had been on PO dilt 60mg BID, and lopressor 100mg BID during past admission -continue home eliquis (2) Heart failure with mildly reduced ejection fraction (HFmrEF): Status: Acute Assessment and plan: LEVEF 44-45% on 08/2024 Ongoing home medicine regimen pertaining to GDMT Does not appear fluid overloaded in the ED Once normotension and rate control is achieved - will resume home dose diuretics as tolerated (3) Acute hypotension: Status: Acute Assessment and plan: Most likely in the setting of A-fib RVR w reduced filling time VS sepsis as per point 4 Improved rate control and w IVF and BB but transient Adding midodrine to allow for escalation of AV blocking agent then down trend dosing s/p resumption of increased cardiac filling time/ rate control Attemp to discontinue midodrine at d/c once rate is controlled (4) Bacterial UTI: Status: Acute Assessment and plan: History pansensitive E.coli on quinolones outpatient Unclear about inconsistences in reporting dysuria UA positive and Urine Cx pending Ongoing IV ceftriaxone in the setting of point 3 and 1 despite not meeting sepsis criteria Blood Cx ordered in ED in the setting of points 5 and 3 - still pending (5) Hyperlactatemia: Status: Acute Assessment and plan: lactate 3.2 on presentation and 2.2 s/p IVF Resolved this AM Concerning for : dehydration combine with home meds VS infectious process as there is not leukocytosis, leukopenia , fever or hypothermia As per point 4 (6) Elevated BUN: Status: Acute Assessment and plan: On presentation : Elevated BUN and BUN /Cr ratio- might be d/t dehydration Improved (7) Hypomagnesemia: Assessment and plan: Mg 1.6 IV supplementation in the ED - now resolved On home oral replacement Labs in AM (8) COPD (chronic obstructive pulmonary disease): Status: Acute Assessment and plan: No exacerbation Ongoing home inhaler regimen (9) Chronic hypoxic respiratory failure, on home oxygen therapy: Status: Acute Assessment and plan: On o2 at 0.5l/min - Baseline 1L NC , on 2l/min in the ED Titrate down for sat 92% (10) NATHAN (obstructive sleep apnea): Status: Resolved Assessment and plan: Ongoign CPAP as per home setting (11) Cardiac pacemaker in situ: Assessment and plan: Ongoing- seldom V-pacing noted (12) HLD (hyperlipidemia): Assessment and plan: C/w home dose statin (13) Depressive disorder: Assessment and plan: C/w home meds (14) Diabetes: Assessment and plan: Gluc AC and HS; long acting insulin -50% reduced dose for glucose 49 this AM- was 287 on admission-- questioning med compliance or proper dosing w either BB or anti-hyperglycemic agents Ongoing SSI coverage Jardiance as per HFm/rEF (15) Hx of CABG: Assessment and plan: No ACS symptoms, no chest pain , SOB (16) CKD (chronic kidney disease) stage 3, GFR 30-59 ml/min: Assessment and plan: Stable Cr lower than baseline today (17) HTN (hypertension): Assessment and plan: on home meds regimen of BB and CCB furosemide 40 mf po BIB on hold d/t point 3 - resume s/p resolution of points 1 and 3 (18) Urinary retention: Status: Acute Assessment and plan: Reported by nursing s/p bladder scan X2 Short term sosa in PT consult for safety- [place] [facility] [place] (19) Dementia: Status: Chronic Assessment and plan: Only oriented to self labile affect and mood Consideration to be given to delirium in dementia patients during acute hospitalization - promote sleep, treat pain - might not be able to communicate her needs (20) GERD (gastroesophageal reflux disease): Assessment and plan: C/s home meds Discussed with Dr. Odell Subjective Subjective Patient reports: tolerating liquids well, tolerating a regular diet and voiding w/o difficulty (retention on arrival - RN reporting 700 cc then 999 - sosa in ); denies diarrhea, vomiting, shortness of breath or fever Exam Narrative Exam Narrative: No acute distress, no acute neurological deficit, oriented to self, unlabored breathing, clear lungs, A-fib RVR on telemetr no murmur, abd is obese, non- distended, soft and non-tender, mood and affect remain labile Objective Last Vital Signs Temp 36.5 C 12/05/24 21:00 Pulse 120 H 12/06/24 06:30 Resp 15 12/06/24 06:30 BP 85/63 L 12/06/24 06:30 Pulse Ox 95 12/06/24 06:30 Laboratory Results - last 24 hr 12/05/24 12/05/24 12/05/24 14:00 14:54 18:00 WBC 8.37 RBC 4.77 Hgb 13.7 Hct 43.5 MCV 91 MCH 28.7 MCHC 31.5 L RDW 21.0 H Plt Count 247 MPV Immature Gran % 0.6 Neutrophils % 64.5 Lymphocytes % 21.9 Monocytes % 8.2 Eosinophils % 4.1 Basophils % 0.7 Nucleated RBC % 0.0 Absolute Neutrophils 5.40 Absolute Lymphocytes 1.83 Absolute Monocytes 0.69 Absolute Eosinophils 0.34 Absolute Basophils 0.06 RBC Morphology See Below Polychromasia Poikilocytosis 2+ Anisocytosis 2+ VBG Lactate 3.2 H* Sodium 138 Potassium 3.8 Chloride 99 Carbon Dioxide 37.3 H Anion Gap 1.7 L BUN 22 H Creatinine 1.1 H Est GFR (CKD-EPI 2020) 51.11 Glucose 287 H Calcium 9.5 Magnesium 1.4 L Total Bilirubin 0.6 AST 25 ALT 33 Alkaline Phosphatase 159 H Troponin I 15 14 Total Protein 7.5 Albumin 2.6 L TSH 3.29 Urine Color Yellow Urine Clarity Clear Urine pH 6.5 Ur Specific [place] 1.020 Urine Protein Negative Urine Ketones Negative Urine Blood Negative Urine Nitrite Negative Urine Bilirubin Negative Urine Urobilinogen 0.2 Ur Leukocyte Esterase Trace H Urine RBC Negative Urine WBC 10-20 H Ur Epithelial Cells Few Urine Crystals Negative Urine Bacteria Few Urine Casts Negative Urine Mucus Negative Ur Culture Indicated? Yes Urine Glucose 500 H 12/05/24 12/06/24 18:03 06:00 WBC 9.02 RBC 4.31 Hgb 12.2 Hct 39.1 MCV 91 MCH 28.3 MCHC 31.2 L RDW 20.6 H Plt Count 222 MPV 12.2 H Immature Gran % 0.3 Neutrophils % 65.8 Lymphocytes % 19.7 Monocytes % 9.1 Eosinophils % 4.1 Basophils % 1.0 Nucleated RBC % 0.0 Absolute Neutrophils 5.93 Absolute Lymphocytes 1.78 Absolute Monocytes 0.82 H Absolute Eosinophils 0.37 Absolute Basophils 0.09 RBC Morphology See Below Polychromasia Present Poikilocytosis 1+ Anisocytosis 2+ VBG Lactate 2.2 H* 1.2 Sodium 144 Potassium 3.2 L Chloride 104 Carbon Dioxide 34.0 H Anion Gap 6.0 BUN 20 H Creatinine 0.9 Est GFR (CKD-EPI 2020) 65.03 Glucose 49 L* Calcium 9.3 Magnesium 1.8 Total Bilirubin AST ALT Alkaline Phosphatase Troponin I 15 Total Protein Albumin TSH Urine Color Urine Clarity Urine pH Ur Specific [place] Urine Protein Urine Ketones Urine Blood Urine Nitrite Urine Bilirubin Urine Urobilinogen Ur Leukocyte Esterase Urine RBC Urine WBC Ur Epithelial Cells Urine Crystals Urine Bacteria Urine Casts Urine Mucus Ur Culture Indicated? Urine Glucose Time Spent with Patient Time Spent with Patient: >50 minutes Time was spent: preparing to see the patient(eg.review tests), obtaining and/or reviewing separately otained hiistory, ordering medications,tests, procedures, referring, communicating with other health child adolescent care, indepentently interpreting results, counseling the patient, care coordination and other
--- NOTE | 2024-12-06 09:45 | DI.US_ITS ---
APPROVED REPORT EXAM: Comprehensive 2D, Doppler, and color-flow Echocardiogram Patient Location: In-Patient Room/Bed: [address] [employer] Farmer: Leo Benson RDCS (AE) Indications: A-fib, hypotension, HFmrEF Other Information Study Quality: Technically Limited. Technically limited study due to body habitus, inability to position patient. Conclusion Technically limited and suboptimal study. Normal left ventricular wall thickness and chamber size. Ejection fraction is estimated to be less than 25%. Septal motion is paradoxic. The remainder of the ventricle is severely hypocontractile Patient is in atrial fibrillation with a rapid rate which confounds assessment of cardiac function Right ventricle is enlarged and hypocontractile Both atria are dilated Device lead noted in the right heart There is a bioprosthetic aortic valve with appropriate function Mitral and tricuspid regurgitation Estimated right ventricular systolic pressure is 40 mmHg Wall motion Left Ventricle The left ventricle is normal size. Left ventricular systolic function is severely decreased. There is normal left ventricular wall thickness. There is global hypokinesis of the left ventricle. There is no ventricular septal defect visualized. LVEF is 25%. Right Ventricle Right ventricle is dilated. Right ventricle is hypokinetic. Pacemaker lead is present in the right ventricle. Atria Left atrium is severely dilated. Right atrium is severely dilated. The interatrial septum is intact with no evidence for an atrial septal defect. Aortic Valve Bioprosthetic aortic valve is present. No aortic regurgitation is present. Mitral Valve Moderate mitral annular calcification. Mild mitral regurgitation. Tricuspid Valve The tricuspid valve is normal in structure. Moderate tricuspid regurgitation. The RVSP is 40.1 mmHg. Pulmonic Valve The pulmonary valve is normal in structure. Trace pulmonic regurgitation. Great Vessels The aortic root is normal in size. The ascending aorta is normal in size. Aortic arch is not well visualized. The IVC is normal in size. The IVC collapses <50% with inspiration. Pericardium There is no pericardial effusion. 2D Dimensions IVSD d PLAX 0.93 cm F: 0.6-1.0 Ao Root d 2.67 cm F: 2.7 - 3.3 LVPW d PLAX 0.89 cm F: 0.6 - 1.0 Ao Asc Diam d 2.88 cm F: 2.3 - 3.1 LVID d PLAX 5.07 cm F: 3.8 - 5.2 LVDs 4.48 cm F: 2.2 - 3.5 LV EF Teichholz 25.1 % FS 11.64 % LV EDV (Teich) 122.0 mL LV ESV (Teich) 91.4 mL Stroke Vol Index (Teich) 17.01 Auto EF LV EDV A4C 87.8 mL LV EDV A2C 66.2 mL LV EDV BP LV ESV A4C 66.1 mL LV ESV A2C 49.5 mL LV ESV BP LVEF(%) A4C 24.7 % LVEF(%) A2C 25.3 % LVEF(%) BP LV SV A4C 21.7 ml LV SV A2C 16.8 ml LV SV BP LV CO A4C 2.8 L/min LV CO A2C 1.5 L/min LV CO BP HR A4C 129.51 BPM HR A2C 89.33 BPM LV EDV Index (BP) LA Volume LA Length A4C 6.3 cm LA Length A2C LA Area A4C s 24.19 cm2 LA Area A2C s LA Vol A4C A-L 78.38 mL LA Vol A2C A-L LA Vol Biplane A-L LA Vol A4C MOD 76.2 mL LA Vol A2C MOD LA Vol BP MOD RA Volume RA Area A4C 14.3 cm2 RA ESV A4C (A-L) 31.8mL RA Vol/BSA A4C A-L RA Length A4C 5.4 cm RA ESV A4C (MOD) 30.1mL LV Diastology MV E Vmax 1.50 (0.4-1.3 m/s) Aortic Valve AoV Vmax 0.75 m/s LVOT Vmax 0.47 m/s AoV Peak Grad 2.2 mmHg LVOT Peak Grad 0.9 mmHg AoV Area (Vmax) 1.56 cm2 LVOT VTI 0.073 m AoV VTI 0.112 m LVOT Mean Grad 0.4 mmHg AoV Mean Bertin. 0.57 m/s LVOT SV 18.13 mL AoV Mean Grad 1.4 mmHg LVOT Diam s 1.75 cm AoV Area (VTI) 1.63 cm2 AV Regurg Peak Gr. 2.23 mmHg Velocity Ratio 0.63 Pulmonary Valve PV Vmax 0.72 (0.5-1.5 m/s) RVOT Vmax 0.48 m/s PV Peak Grad 2.1 mmHg RVOT Peak Gr. 0.9 mmHg PV Mean Bertin 0.51 m/s RVOT VTI 0.062 m PV Mean Grad 1.2 mmHg RVOT Mean Gr. 0.5 mmHg Tricuspid Valve RA Pressure 8.00 mmHg TR Vmax 2.83 m/s TR Peak Grad 32.1 mmHg RVSP (TR) 40.1 mmHg
[2024-12-06] MEDS: Tiotropium/Olodaterol 10 PUFF INHALER 2 PUFF IH (10:27)
[2024-12-06] MEDS: Normal Saline 250 ML IV (11:04)
[2024-12-06] MEDS: Midodrine 2.5 MG TAB PO ×3 (11:05→21:12)
[2024-12-06] MEDS: Metoprolol 50 MG TAB 100 MG PO ×2 (11:46→21:14)
--- NOTE | 2024-12-06 14:23 | W.NUTRFU ---
Date of service: 12/06/24 Time of Service: 14:00 Nutrition Note NOTE: pt seen multiple times during her admission for attempts at nutrition assessment - due to confusion related to dementia, a poor nutrition history was collected. She did state drt in law makes most of her meals (although it appears pt has been residing at [facility]). Pt has [facility] managed at [facility] as well as meals and snacks there. A1c on 12/07 was 7.7 which is appropriate for an elderly patient with the number of co-conditions. will monitor. Time Spent in Nutritional Counseling and Treatment: 10 min
--- NOTE | 2024-12-06 14:52 | NT_ITS ---
PT Notes Visit Reasons: a-fib with RVR Patient refused to be seen by PT today. Will attempt another evaluation tomorrow morning with on-call PT Andrea as patient was starting to get agitated and wanted to be left alone. Nurse Go and INSPECTOR AND MENDER Brianda were apprised of patient's refusal.
[2024-12-06] MEDS: Melatonin 3 MG TAB 9 MG PO (21:12)
[2024-12-06] MEDS: traZODone 50 MG TAB PO (21:15)
[2024-12-07] MEDS: cefTRIAXone 1 GM/50 ML BAG IVPB ×2 (00:55→20:42)
[2024-12-07] MEDS: Bimatoprost 0.01% 2.5 ML BTL OP ×2 (00:57→21:16)
[2024-12-07 06:32] LABS: Abs Immature Grans 0.03 10^3/uL (0.0-0.06); HCT 34.2 % (36.0-46.0); HGB 11.0 g/dL (11.2-15.7); Immature Grans % 0.3 %; MCH 28.9 pg (27.0-33.0); MCHC 32.2 % (32.0-36.0); MCV 90 fL (80-95); Platelet Count 202 10^3/uL (130-400); RBC 3.81 10^6/uL (3.93-5.22); RDW 20.6 % (11.7-14.6); RDW-SD 67.9 fL; WBC 9.17 10^3/uL (4.4-10.8)
[2024-12-07 06:40] LABS: Anisocytosis 2+
[2024-12-07 06:41] LABS: Poikilocytes 1+
[2024-12-07 06:46] LABS: Anion Gap 4.1 mmol/L (3-11); BUN 25 mg/dL (7-18); CO2 30.9 mmol/L (21.0-32.0); Calcium 9.2 mg/dL (8.5-10.1); Chloride 102 mmol/L (98-107); Estimated GFR 57.31 (mL/min/1.73m2); Glucose 101 mg/dL (74-106); Potassium 4.1 mmol/L (3.5-5.1); Sodium 137 mmol/L (136-145)
[2024-12-07 07:53] VITALS: O2SAT 92
[2024-12-07] MEDS: Tiotropium/Olodaterol 10 PUFF INHALER 2 PUFF IH (07:53)
[2024-12-07 09:21] VITALS: BP 103/59; PULSE 102; RESP 16; TEMP 36.5; O2SAT 92
[2024-12-07] MEDS: Metoprolol 50 MG TAB 100 MG PO ×2 (10:01→20:38)
[2024-12-07] MEDS: Midodrine 2.5 MG TAB PO (10:01)
[2024-12-07] MEDS: dilTIAZem 30 MG TAB PO (10:01)
[2024-12-07] MEDS: Apixaban 5 MG TAB PO ×2 (10:01→20:31)
[2024-12-07] MEDS: Atorvastatin 40 MG TAB 80 MG PO (10:02)
[2024-12-07] MEDS: Sucralfate 1 GM TAB PO ×3 (10:02→20:44)
[2024-12-07] MEDS: Famotidine 20 MG TAB PO (10:02)
[2024-12-07] MEDS: Empaglifozin 10 MG TAB PO (10:02)
[2024-12-07] MEDS: Potassium Chloride 20 MEQ TABCR PO ×3 (10:02→20:43)
[2024-12-07] MEDS: Venlafaxine 150 MG CAPCR PO (10:02)
[2024-12-07] MEDS: Normal Saline Flush 10 ML SYR IVP ×2 (10:03→21:18)
[2024-12-07] MEDS: Magnesium Oxide 400 MG TAB 200 MG PO ×2 (10:03→20:30)
[2024-12-07] MEDS: Multivitamin TAB 1 TAB PO (10:03)
--- NOTE | 2024-12-07 11:35 | PT.INIE ---
PT Notes Visit Reasons: a-fib with RVR Inpatient Physical Therapy Evaluation Date: 12/07/24 Referring Doctor: Brianda eDmarco PT Orders: PT CONSULT: safety consult for d/c Precautions: Fall precautions, dementia Patient Profile/Admitting Diagnosis: A-fib w/RVR PMHX: CHF, COPD, CKD, Diabetes Social History/Home Situation: Lives at a SNF Subjective: Pt is very confused today. She is unable to describe where she is, why she is here, or her name. She does know that it is 2024 but thinks it is April. She is unable to describe any of her PMH or living situation. She is unsure if she walks at baseline but does point to the walker when asked. Objective: General Observation: staring out the window, looking confused Mental Status: A+Ox1 Pain: describes pain in her right leg with she is assisted with movement, significant hip ER observed on this side Vital Signs: BP - 103/79, HR - 74, spO2 94% Strength: Right Upper Extremity: Able to lift arm into flexion roughly 90 deg Left Upper Extremity: Able to lift arm into flexion roughly 90 deg Right Lower Extremity: unable to perform SLR or heel raise, is able to actively DF/PF when cued Left Lower Extremity: unable to perform SLR or heel raise, is able to actively DF/PF when cued Bed Mobility/Transfers: semi-supine to sitting at EOB w/mod assist sitting at EOB to semi-supine w/mod assist sitting to standing w/max assist of 2 standing to sitting w/max assist of 2 *required bed to be moved down to position herself up the bed Gait: not appropriate today Balance: Static Sitting: fair Dynamic Sitting: fair Static Standing: poor Dynamic Standing: poor Special Tests: Mobility Limitations Standardized Measure [facility] AM-PAC 6 clicks Basic Mobility Inpatient Short Form: Raw Score: 9 CMS Score: 81.38% Informed Consent/Education: Patient instructed in purpose of PT consult and plan of care. Assessment: Pt is very confused which is effecting her function greatly. She is currently unaware of her name, where she is, and why she is here. She was max assist of 2 for standing and mod assist for bed mobility today. It is unclear what her prior functional status is but it is clear that she will need SNF for continued rehabilitation following this hospital stay. She does seem to have some pain in her right leg which may be also contributing to her difficulty with standing. Her vitals remained stable throughout the session. She will continue to benefit from PT services to progress her appropriately and optimize her level of functioning while in the hospital. Patient is assessed as a Moderate 23762 complexity based on the following: History: Moderate Examination: Moderate Presentation: Moderate Decision Making: Moderate Goals: Goals X1 week 1. Supine-Sit w/min assist 2. Sit-Supine w/min assist 3. Sit-Stand w/min assist 4. Stand-Sit w/min assist 5. Bed-Chair w/min assist 6. Chair-Bed w/min assist 7. Gait - 10 ft w/RW and CGA Plan of Care/Treatment Plan: 1-2x/day, 7 days/week x 1 week. Plan of care has been reviewed with the DIRECTOR ORGANIZATIONAL providing the service under Physical Therapy direction. Initiate Physical Therapy intervention for strengthening, bed mobility, transfers, gait, stairs, balance training, use of assistive device. DISCHARGE RECOMMENDATIONS: D/c to SNF for continued rehabilitation TREATMENT CODE/TIME: Moderate Complexity 85281 x1
[2024-12-07 12:30] VITALS: BP 110/59; PULSE 111; RESP 16; TEMP 36.5; O2SAT 93
[2024-12-07] MEDS: Insulin Aspart 300 UNITS/3 ML PEN SC (12:45)
--- NOTE | 2024-12-07 13:09 | W.PM.PROGNOT ---
Date of Service Date of service: 12/07/24 Time of Service: 13:09 Assessment and Plan Assessment and plan (1) Atrial fibrillation with rapid ventricular response: Status: Acute Assessment and plan: rate improved, continue adjusting meds as needed and as BP allows -stop Diltiazem 30 mg PO TID with history of reduced EF stop midodrine increase lopressor to 100 mg po TID -Had been on PO dilt 60mg BID, and lopressor 100mg BID during past admission -continue home eliquis (2) Heart failure with mildly reduced ejection fraction (HFmrEF): Status: Acute Assessment and plan: LEVEF 44-45% on 08/2024 Ongoing home medicine regimen pertaining to GDMT Does not appear fluid overloaded in the ED Once normotension and rate control is achieved - will resume home dose diuretics as tolerated repeat echo when available. (3) Acute hypotension: Status: Acute Assessment and plan: Most likely in the setting of A-fib RVR Improved rate control and w IVF and BB stop midodrine (4) Bacterial UTI: Status: Acute Assessment and plan: cultures pending continue ceftriaxone for now, day 05/08 (5) Hyperlactatemia: Status: Resolved Assessment and plan: lactate 3.2 on presentation and 2.2 s/p IVF Resolved this AM Concerning for : dehydration combine with home meds VS infectious process as there is not leukocytosis, leukopenia , fever or hypothermia (6) Elevated BUN: Status: Acute Assessment and plan: On presentation : Elevated BUN and BUN /Cr ratio- might be d/t dehydration Improved (7) Hypomagnesemia: Assessment and plan: repleted On home oral replacement follow labs (8) COPD (chronic obstructive pulmonary disease): Status: Acute Assessment and plan: No exacerbation Ongoing home inhaler regimen (9) Chronic hypoxic respiratory failure, on home oxygen therapy: Status: Acute Assessment and plan: keeps sats 88-92 (10) NATHAN (obstructive sleep apnea): Status: Chronic Assessment and plan: Ongoign CPAP as per home setting (11) Cardiac pacemaker in situ: Assessment and plan: Ongoing- seldom V-pacing noted (12) HLD (hyperlipidemia): Assessment and plan: C/w home dose statin (13) Depressive disorder: Assessment and plan: C/w home meds (14) Diabetes: Assessment and plan: Gluc AC and HS; long acting insulin -50% reduced dose for hypoglycemia Ongoing SSI coverage Jardiance as per HFrEF check A1C (15) Hx of CABG: Assessment and plan: No ACS symptoms, no chest pain , SOB (16) CKD (chronic kidney disease) stage 3, GFR 30-59 ml/min: Assessment and plan: Stable Cr lower than baseline today (17) HTN (hypertension): Assessment and plan: on home meds regimen of BB and CCB furosemide 40 mf po BIB on hold d/t point 3 - resume s/p resolution of points 1 and 3 (18) Urinary retention: Status: Acute Assessment and plan: Reported by nursing s/p bladder scan X2 Short term sosa in PT consult for safety- [facility] to [facility] (19) Dementia: Status: Chronic Assessment and plan: Only oriented to self labile affect and mood Consideration to be given to delirium in dementia patients during acute hospitalization - promote sleep, treat pain - might not be able to communicate her needs (20) GERD (gastroesophageal reflux disease): Assessment and plan: C/s home meds Discussed with Dr. Odell Subjective Subjective Patient reports: no new complaints, feels better, tolerating liquids well, tolerating a regular diet and afebrile Exam Const General: cooperative, comfortable and no acute distress Orientation: alert, awake and oriented to person Limitations: other limitations (hard of hearing) HENMT Head: normal to inspection Ears: external ears normal General nose exam: external nose normal Mouth: moist mucous membranes Eyes General: appearance normal, both eyes and all related structures Neck Neck: normal visual inspection Resp Effort & Inspection: normal respiratory effort Cardio Jugular venous pressure: no JVD Rhythm: abnormal rhythm (afib controlled to uncontrolled) GI Inspection: normal to inspection Skin General skin exam: no rashes or lesions noted Neuro General: patient alert Extrem General: normal to inspection Psych Mental Status: mental status grossly normal Objective Last Vital Signs Temp 36.5 C 12/07/24 09:21 Pulse 102 H 12/07/24 09:21 Resp 16 12/07/24 09:21 BP 103/59 L 12/07/24 09:21 Pulse Ox 92 12/07/24 09:21 Laboratory Results - last 24 hr 12/07/24 05:46 WBC 9.17 RBC 3.81 L Hgb 11.0 L Hct 34.2 L MCV 90 MCH 28.9 MCHC 32.2 RDW 20.6 H Plt Count 202 MPV Immature Gran % 0.3 Neutrophils % 62.2 Lymphocytes % 23.0 Monocytes % 10.3 Eosinophils % 3.4 Basophils % 0.8 Nucleated RBC % 0.0 Absolute Neutrophils 5.71 Absolute Lymphocytes 2.11 Absolute Monocytes 0.94 H Absolute Eosinophils 0.31 Absolute Basophils 0.07 Poikilocytosis 1+ Anisocytosis 2+ Sodium 137 Potassium 4.1 Chloride 102 Carbon Dioxide 30.9 Anion Gap 4.1 BUN 25 H Creatinine 1.0 Est GFR (CKD-EPI 2020) 57.31 Glucose 101 Calcium 9.2 Time Spent with Patient Time Spent with Patient: 35-49 minutes Time was spent: preparing to see the patient(eg.review tests), obtaining and/or reviewing separately otained hiistory, ordering medications,tests, procedures, indepentently interpreting results and counseling the patient
[2024-12-07 13:55] LABS: Lab Add On Test DONE
[2024-12-07 14:20] LABS: Hemoglobin A1C 7.7 % (<5.7)
[2024-12-07 18:20] VITALS: BP 111/57; PULSE 106; RESP 16; TEMP 36.5; O2SAT 93
[2024-12-07] MEDS: Melatonin 3 MG TAB 9 MG PO (20:29)
[2024-12-07] MEDS: traZODone 50 MG TAB PO (20:30)
[2024-12-07 20:42] VITALS: BP 105/44; PULSE 75; RESP 20; TEMP 36.2; O2SAT 93
[2024-12-07] MEDS: Insulin Glargine 300 UNITS/3 ML PEN 30 UNITS SC (21:15)
[2024-12-07 23:36] VITALS: BP 98/50; PULSE 67; RESP 18; TEMP 36.3; O2SAT 96
[2024-12-08 07:13] VITALS: BP 110/66; PULSE 57; RESP 20; TEMP 36.4; O2SAT 93
[2024-12-08] MEDS: Tiotropium/Olodaterol 10 PUFF INHALER 2 PUFF IH (07:43)
[2024-12-08] MEDS: Insulin Aspart 300 UNITS/3 ML PEN SC ×3 (08:19→17:15)
[2024-12-08] MEDS: Sucralfate 1 GM TAB PO ×4 (08:23→20:19)
[2024-12-08] MEDS: Venlafaxine 150 MG CAPCR PO (08:23)
[2024-12-08] MEDS: Atorvastatin 40 MG TAB 80 MG PO (08:23)
[2024-12-08] MEDS: Famotidine 20 MG TAB PO (08:23)
[2024-12-08] MEDS: Potassium Chloride 20 MEQ TABCR PO ×2 (08:23→20:18)
[2024-12-08] MEDS: Metoprolol 50 MG TAB 100 MG PO (08:23)
[2024-12-08] MEDS: Apixaban 5 MG TAB PO ×2 (08:23→20:18)
[2024-12-08] MEDS: Magnesium Oxide 400 MG TAB 200 MG PO ×2 (08:24→20:19)
[2024-12-08] MEDS: Multivitamin TAB 1 TAB PO (08:24)
[2024-12-08] MEDS: Empaglifozin 10 MG TAB PO (08:24)
[2024-12-08] MEDS: Normal Saline Flush 10 ML SYR IVP ×2 (08:26→20:18)
[2024-12-08 11:01] VITALS: BP 90/50; PULSE 72; RESP 20; TEMP 36.4; O2SAT 94
--- NOTE | 2024-12-08 12:39 | PT.INTREAT ---
PT Notes Visit Reasons: a-fib with RVR Inpatient Physical Therapy Treatment Note [facility] Date: 12/08/24 PRECAUTIONS: Fall precautions, dementia SUBJECTIVE: Pt very happy to see me today. She is ready to work with PT. OBJECTIVE: ? PAIN: minor pain present in RLE but unclear as to where VITALS: monitored by nursing Therapeutic Activities (02956g5): Direct one-on-one instruction in dynamic activities to improve functional performance. ? BED MOBILITY/TRANSFERS? Rolling L/R: min assist Supine-sit: min assist ? Sit-supine: min assist ? Sit-stand: mod assist ? Stand-sit: mod assist ? Bed-Chair: unable ? Chair-bed: unable Ambulation: not performed, attempted lateral stepping up the bed but not able to perform today ASSESSMENT:? Pt showed improvements with bed mobility as she required less assistance today but continues to have difficulty with initiating walking. She is unable to perform marching in place, making it unsafe for her to perform a stand pivot transfer at this time. She is confused as well which is limiting her and making it difficult for her to understand directions. She will continue to benefit greatly from PT services to progress her as tolerated. PLAN: Continue attempting marching in place to assess safety for stand pivot transfers TREATMENT CODE/TIME: Ther Act (84957) x2 - 30 min DISCHARGE RECOMMENDATION: SNF for continued rehabilitation
[2024-12-08 14:58] VITALS: BP 100/52; PULSE 75; RESP 20; TEMP 36.4; O2SAT 93
--- NOTE | 2024-12-08 16:22 | W.PM.PROGNOT ---
Date of Service Date of service: 12/08/24 Time of Service: 16:22 Assessment and Plan Assessment and plan (1) Atrial fibrillation with rapid ventricular response: Status: Acute Assessment and plan: rate improved, continue adjusting meds as needed and as BP allows -stop Diltiazem 30 mg PO TID with history of reduced EF stop midodrine will continue lopressor at 100 mg BID consider digoxin, consider cards consult if no rate control and ongoing hypotension echo pending for Monday -continue home eliquis (2) Heart failure with mildly reduced ejection fraction (HFmrEF): Status: Acute Assessment and plan: LEVEF 44-45% on 08/2024 GDMT as tolerated Does not appear fluid overloaded Once normotension and rate control is achieved - will resume home dose diuretics as tolerated repeat echo when available. (3) Acute hypotension: Status: Acute Assessment and plan: Most likely in the setting of A-fib RVR Improved rate control and w IVF and BB stop midodrine (4) Bacterial UTI: Status: Acute Assessment and plan: cultures growing proteus mirabilis sensitive to cephalosporins continue ceftriaxone for now, day 06/05 (5) Hypomagnesemia: Assessment and plan: repleted On home oral replacement follow labs (6) COPD (chronic obstructive pulmonary disease): Status: Acute Assessment and plan: No exacerbation Ongoing home inhaler regimen (7) Chronic hypoxic respiratory failure, on home oxygen therapy: Status: Acute Assessment and plan: keeps sats 88-92 (8) NATHAN (obstructive sleep apnea): Status: Chronic Assessment and plan: CPAP as per home setting (9) Cardiac pacemaker in situ: Assessment and plan: intermittent V-pacing noted (10) HLD (hyperlipidemia): Assessment and plan: home dose statin (11) Depressive disorder: Assessment and plan: stable, continue home meds (12) Diabetes: Assessment and plan: Gluc AC and HS; long acting insulin -50% initially reduced dose for hypoglycemia, now poorly controlled. will increase to 40 units from 30 units (home dose 60units) Ongoing SSI coverage Jardiance as per HFrEF A1C 7.7 (13) Hx of CABG: Assessment and plan: No ACS symptoms, no chest pain , SOB (14) CKD (chronic kidney disease) stage 3, GFR 30-59 ml/min: Assessment and plan: Stable at baseline (15) HTN (hypertension): Assessment and plan: on home meds regimen lopressor, cardizem discontinued pending echo (16) Urinary retention: Status: Acute Assessment and plan: Short term sosa in for urinary retention PT consult for safety- transfer to [facility] (17) Dementia: Status: Chronic Assessment and plan: Only oriented to self labile affect and mood Consideration to be given to delirium in dementia patients during acute hospitalization - promote sleep, treat pain - might not be able to communicate her needs (18) GERD (gastroesophageal reflux disease): Assessment and plan: continue home meds Discussed with Dr. Odell Subjective Subjective Patient reports: no new complaints, feels better, tolerating liquids well, tolerating a regular diet and afebrile; denies shortness of breath Exam Const General: cooperative, comfortable and no acute distress Orientation: alert, awake and oriented to person Limitations: other limitations (hard of hearing) HENMT Head: normal to inspection Ears: external ears normal General nose exam: external nose normal Mouth: moist mucous membranes Eyes General: appearance normal, both eyes and all related structures Neck Neck: normal visual inspection Resp Effort & Inspection: normal respiratory effort Cardio Jugular venous pressure: no JVD Rhythm: abnormal rhythm (afib controlled to uncontrolled) GI Inspection: normal to inspection Skin General skin exam: no rashes or lesions noted Neuro General: patient alert Extrem General: normal to inspection Psych Mental Status: mental status grossly normal Objective Last Vital Signs Temp 36.4 C L 12/08/24 14:58 Pulse 75 12/08/24 14:58 Resp 20 12/08/24 14:58 BP 100/52 L 12/08/24 14:58 Pulse Ox 93 12/08/24 14:58 Time Spent with Patient Time Spent with Patient: 35-49 minutes Time was spent: preparing to see the patient(eg.review tests), obtaining and/or reviewing separately otained hiistory, ordering medications,tests, procedures, indepentently interpreting results and counseling the patient
[2024-12-08 16:32] VITALS: BP 107/46; PULSE 65
[2024-12-08 20:10] VITALS: BP 98/53; PULSE 82; RESP 22; TEMP 36.9; O2SAT 90
[2024-12-08] MEDS: Insulin Glargine 300 UNITS/3 ML PEN 40 UNITS SC (20:17)
[2024-12-08] MEDS: Bimatoprost 0.01% 2.5 ML BTL OP (20:18)
[2024-12-08] MEDS: traZODone 50 MG TAB PO (20:19)
[2024-12-08] MEDS: Melatonin 3 MG TAB 9 MG PO (20:19)
[2024-12-08] MEDS: cefTRIAXone 1 GM/50 ML BAG IVPB (21:06)
[2024-12-08 23:13] VITALS: BP 98/52; PULSE 82; RESP 18; TEMP 36.4; O2SAT 94
[2024-12-09 06:26] VITALS: BP 111/56; PULSE 86; RESP 18; TEMP 36.5; O2SAT 92
[2024-12-09] MEDS: Insulin Aspart 300 UNITS/3 ML PEN SC ×2 (08:13→12:39)
[2024-12-09] MEDS: Magnesium Oxide 400 MG TAB 200 MG PO (08:14)
[2024-12-09] MEDS: Venlafaxine 150 MG CAPCR PO (08:14)
[2024-12-09] MEDS: Sucralfate 1 GM TAB PO ×2 (08:15→11:03)
[2024-12-09] MEDS: Potassium Chloride 20 MEQ TABCR PO (08:15)
[2024-12-09] MEDS: Atorvastatin 40 MG TAB 80 MG PO (08:16)
[2024-12-09] MEDS: Multivitamin TAB 1 TAB PO (08:16)
[2024-12-09] MEDS: Apixaban 5 MG TAB PO (08:16)
[2024-12-09] MEDS: Famotidine 20 MG TAB PO (08:16)
[2024-12-09] MEDS: Empaglifozin 10 MG TAB PO (08:16)
[2024-12-09] MEDS: Normal Saline Flush 10 ML SYR IVP (08:17)
[2024-12-09] MEDS: Tiotropium/Olodaterol 10 PUFF INHALER 2 PUFF IH (08:36)
--- NOTE | 2024-12-09 09:24 | CMDISCH_ITS ---
Date of service: 12/09/24 Time of Service: 09:25 LACE Index Scoring Tool Questions: Length of Stay (in days): 4 - 6 Was the patient admitted via the E.D.?: Yes Comorbidities: Congestive Heart Failure, Chronic Pulmonary Disease, Dementia and Liver or Renal Disease E.D. Visits: 5 Answers: Total Score: 16 Risk of Readmission: High Risk Care Management Discharge Plan Reason for Hospitalization: afib with RVR Discharge Plan: Jessa will return to [facility] later today. She will f/u with the facility provider and continue per her plan of care. Jessa will transport via [facility]. Patient/Family Education Needs: Review of discharge instructions, activity, limitations and discuss Ask me 3. SDOH Health Related Social Needs: Health related social needs risk of homeless education
--- NOTE | 2024-12-09 09:27 | PT.INTREAT ---
PT Notes Visit Reasons: a-fib with RVR Date: 12/09/24 PRECAUTIONS: Fall precautions, dementia SUBJECTIVE: pt in bed finishiing her breakfast when approached for therapy this morning, agreed to particvipating with therapy session. OBJECTIVE: ? PAIN: Right knee on movement VITALS: monitored by nursing Therapeutic Activities (69764): Direct one-on-one instruction in dynamic activities to improve functional performance. ??? BED MOBILITY/TRANSFERS? Rolling L/R: min assist Supine-sit: min assist ? Sit-supine: min assist ? Sit-stand: not performed ? Stand-sit: not performed ? Bed-Chair: unable ? Chair-bed: unable Ambulation: not performed ASSESSMENT:? pt initially agreed to participating with bed to recliner transfer, pt changed her mind mid activity reporting she would not like to get out of bed due to right knee pain, pt allowed PROM of bilateral LE doing SLR, heel slide ankle pumping refused further engagement expressed she is done for the day, was able to get pt to agree to be seen at a later time this afternoon. PLAN: continue pt engagement to achieve functional mobility goals until pt is ready for transfer to SNF. TREATMENT CODE/TIME: Ther Act (96913) x1 - 15min (9:10-9:25am) DISCHARGE RECOMMENDATION: SNF for continued rehabilitation
--- NOTE | 2024-12-09 11:30 | W.PM.PROGNOT ---
Date of Service Date of service: 12/09/24 Time of Service: 11:31 Assessment and Plan Assessment and plan (1) Atrial fibrillation with rapid ventricular response: Status: Acute Assessment and plan: rate improved, continue adjusting meds as needed and as BP allows - Diltiazem 30 mg PO TID with history of newly reduced LVEF at 25%on 12/06/24- was stopped midodrine stopped on 12/08-SBP 110's Lopressor at 100 mg BID- transitioned to toprol XL 200 mg daily Consider digoxin, consider cards consult if no rate control not maintianed Echo pending for Monday -continue home eliquis (2) Heart failure with mildly reduced ejection fraction (HFmrEF): Status: Acute Assessment and plan: LEVEF 44-45% on 08/2024 but 25% on 12/06/24 - while in A-fib w RVR Ongoing gradual GDMT as tolerated Does not appear fluid overloaded Once normotension and rate control is achieved - resume home dose diuretics as tolerated Repeat echo pending (3) Acute hypotension: Status: Acute Assessment and plan: Resolved Most likely in the setting of A-fib RVR Improved rate control and w IVF and BB stop midodrine (4) Bacterial UTI: Status: Acute Assessment and plan: cultures growing proteus mirabilis sensitive to cephalosporins continue ceftriaxone for now, day - oral if d/c prior to completion (5) Hypomagnesemia: Assessment and plan: Supplemented Ongoing home oral replacement trend Mg (6) COPD (chronic obstructive pulmonary disease): Status: Acute Assessment and plan: Stable Ongoing home inhaler regimen (7) Chronic hypoxic respiratory failure, on home oxygen therapy: Status: Acute Assessment and plan: Sats goals 88-92% (8) NATHAN (obstructive sleep apnea): Status: Chronic Assessment and plan: Ongoing CPAP as per home setting (9) Cardiac pacemaker in situ: Assessment and plan: A-paced this AM HR 85 (10) HLD (hyperlipidemia): Assessment and plan: Ongoing home dose statin (11) Depressive disorder: Assessment and plan: Continue home meds (12) Diabetes: Assessment and plan: Gluc AC and HS; long acting insulin -50% initially reduced dose for hypoglycemia at 49 on BMP on 12/06 , then d/t poor controlled- lantus 30 units increased to 40units daily Ongoing SSI coverage Ongoing Jardiance as per HFrEF A1C 7.7 (13) Hx of CABG: Assessment and plan: No ACS symptoms, no chest pain , SOB (14) CKD (chronic kidney disease) stage 3, GFR 30-59 ml/min: Assessment and plan: Stable at baseline (15) HTN (hypertension): Assessment and plan: on home meds cardizem discontinued pending echo metoprolol as per point 1 (16) Urinary retention: Status: Acute Assessment and plan: Short term sosa in for urinary retention PT consult for safety- transfer to [facility] d/c sosa and bladder scan Q 8 PRN (17) Dementia: Status: Chronic Assessment and plan: Ongoing - oriented to self labile affect and mood Consideration to be given to delirium in dementia patients during acute hospitalization - promote sleep, treat pain - might not be able to communicate her needs (18) GERD (gastroesophageal reflux disease): Assessment and plan: Continue home meds Discussed with Dr. Odell Subjective Subjective Patient reports: feels better, tolerating liquids well, tolerating a regular diet and voiding w/o difficulty; denies diarrhea, nausea, vomiting, shortness of breath or fever Exam Narrative Exam Narrative: No acute distress, no acute neurological deficit, oriented to self, unlabored breathing, clear lungs, A- paced HR 85 on telemetry no murmur, abd is obese, non-distended, soft and non-tender, mood and affect remain labile Objective Last Vital Signs Temp 36.5 C 12/09/24 06:26 Pulse 86 12/09/24 06:26 Resp 18 12/09/24 06:26 BP 111/56 L 12/09/24 06:26 Pulse Ox 92 12/09/24 06:26 Time Spent with Patient Time Spent with Patient: >50 minutes Time was spent: preparing to see the patient(eg.review tests), obtaining and/or reviewing separately otained hiistory, ordering medications,tests, procedures, referring, communicating with other health customer care voice consultant, indepentently interpreting results, counseling the patient, care coordination and other
[2024-12-09 12:56] VITALS: BP 106/45; PULSE 84; RESP 18; TEMP 36.3; O2SAT 95
--- NOTE | 2024-12-09 12:58 | W.PM.DS.N ---
Date of service: 12/09/24 Time of Service: 12:58 DS: Diagnosis Discharge Diagnosis (1) Atrial fibrillation with rapid ventricular response: Status: Acute (2) Heart failure with mildly reduced ejection fraction (HFmrEF): Status: Acute (3) Acute hypotension: Status: Acute (4) Bacterial UTI: Status: Acute (5) Hypomagnesemia: (6) COPD (chronic obstructive pulmonary disease): Status: Acute (7) Chronic hypoxic respiratory failure, on home oxygen therapy: Status: Acute (8) NATHAN (obstructive sleep apnea): Status: Chronic (9) Cardiac pacemaker in situ: (10) HLD (hyperlipidemia): (11) Depressive disorder: (12) Diabetes: (13) Hx of CABG: (14) CKD (chronic kidney disease) stage 3, GFR 30-59 ml/min: (15) HTN (hypertension): (16) Urinary retention: Status: Acute (17) Dementia: Status: Chronic (18) GERD (gastroesophageal reflux disease): Discharge Plan Disposition Patient Disposition: [facility] Facility[facility]NF) Condition: Improving Discharge Details Reason For Visit: a-fib with RVR Admit Date/Time: 12/05/24 17:19 Admit Provider: Andre Alvarado Attending Provider: Andre Alvarado Primary Care Provider: Kev Teran Hospital Course Hospital Course: This 79 yo female with a PMHx of sever dementia, DNR/DNI, CHF w last LVEF 40-45%, atrial-fibrillation on Eliquis, metoprolol, and diltiazem, pansensitive E. coli UTI on 11/30/24 on ciprofloxacin, hyperlipidemia, DMII was sent from a local SNF with concerns for rapid heart rate. On arrival the patient was found to be in A-Fib with RVR HR 120-137, hypotensive w SBP in the mid 70's to 90's which somewhat responded to cautious IV crystalloid infusion. The patient was afebrile, denied lightheadeness, chest pain, abdominal pain, agrees with dysuria on and off. Oxygen at 2 l/min via nasal canula with sat 95-99% when seen. Blood work w/o leukocytosis, lactate at 3.2 down to 1.2 , mag 1.6 with IV supplementation initiated , Cr 1.1 around baseline and slightly elevated BUN at 22. The patient was admitted to the medical surgical floor with telemetry. When seen HR 100-130' s, MAP 59-64 labile. Trial of IV lopressor 2.5 mg given resulting with improved rate control. Echocardiogram on 12/06/24 Conclusion Technically limited and suboptimal study. Normal left ventricular wall thickness and chamber size. Ejection fraction is estimated to be less than 25%. Septal motion is paradoxic. The remainder of the ventricle is severely hypocontractile Patient is in atrial fibrillation with a rapid rate which confounds assessment of cardiac function Right ventricle is enlarged and hypocontractile Both atria are dilated Device lead noted in the right heart There is a bioprosthetic aortic valve with appropriate function Mitral and tricuspid regurgitation Estimated right ventricular systolic pressure is 40 mmHg Midodrine initially added to allow increment in AV-blocking agent was discontinued. Diltiazem stopped and rate controlled achived on increased metoprolol dosing- similar to dosing necessary at last discharged. The patient will be discharge to SNF metoprolol succinate 200 mg daily and cefpodoxime for P. mirabilis in urine cultures. The patient was hemodynamically satble and atrially paced at discharge HR mid 60's to mid 80's Outpatient cardiology referral completed for GDMT for HFrEF. Discussed with Dr Odell Fallston Meds and New Rx's Prescriptions: New acetaminophen 325 mg Tablet 650 mg PO QID PRN PRNQty: 30 0RF docusate sodium [Colace] 100 mg Capsule 100 mg PO TID PRN PRNQty: 90 0RF insulin glargine [Lantus Solostar U-100 Insulin] 100 unit/mL (3 mL) Insulin Pen 40 unit SC QPM Qty: 3 0RF cefpodoxime 200 mg Tablet 100 mg PO BID Qty: 3 0RF metoprolol succinate 200 mg tablet extended release 24 hr 200 mg PO DAILY Qty: 30 0RF Continued venlafaxine 150 mg capsule,extended release 24hr 150 mg PO DAILY sucralfate 1 gram tablet 1 g PO AC & HS atorvastatin 80 mg tablet 80 mg PO DAILY Eliquis 5 mg tablet 5 mg PO BID famotidine 20 mg tablet 20 mg PO DAILY trazodone 50 mg tablet 50 mg PO HS furosemide 40 mg tablet 40 mg PO BID Qty: 0 0RF insulin aspart U-100 [Novolog FlexPen U-100 Insulin] 100 unit/mL (3 mL) insulin pen 5 unit SUBCUT TID Lumigan 0.01 % drops 1 drp ophthalmic (eye) QPM multivitamin [Daily Multi-Vitamin] Tablet 1 tab PO DAILY Stiolto Respimat 2.5-2.5 mcg/actuation mist 2 inh inhalation DAILY Jardiance 10 mg Tablet 10 mg PO QAM Qty: 90 0RF magnesium 200 mg tablet 200 mg PO BID potassium chloride 20 mEq tablet,ER particles/crystals 20 meq PO BID Discontinued insulin glargine [Lantus Solostar U-100 Insulin] 100 unit/mL (3 mL) insulin pen 60 unit subcut QPM No Action metoprolol succinate 100 mg tablet extended release 24 hr 100 mg PO DAILY diltiazem HCl 30 mg Tablet 60 mg PO BID Qty: 90 0RF ciprofloxacin HCl 500 mg tablet 500 mg PO BID Rx Instructions: For e-coli UTI- started 12/03/24; take for 7 days Discharge Instructions Referrals: Kev Teran [Primary Care Provider, Medicine] Referral Note: Follow-up within 7 days of discharge Marylin Tompkins MD [ [facility] STAFF PHYSICIAN, Cardiology] Referral Note: Referral for worsening HFrEF Activity:: Activity as Tolerated Equipment/Supplies:: Walker Diet:: heart healthy diabetic DS: Summary Time Spent with Patient providing and/or coordinating discharge services: Greater than 30 minutes Status at Discharge Functional status at discharge: uses cane/walker Overall status at discharge: patient is progressing back to baseline Mental Status: mental status grossly normal and other (labile) Speech and Movement: speech and movement normal Mood: anxious mood, irritable mood and other (labile) Affect: labile affect Quality:SDOH Health Related Social Needs: Health related social needs risk of homeless education Exam Narrative Exam Narrative: No acute distress, no acute neurological deficit, oriented to self, unlabored breathing, clear lungs, A- paced HR 85 on telemetry no murmur, abd is obese, non-distended, soft and non-tender, mood and affect remain labile Psych Mental Status: mental status grossly normal and other (labile) Speech and Movement: speech and movement normal Mood: anxious mood, irritable mood and other (labile) Affect: labile affect DS: Data Vitals/I&O Vitals and I&O: Vital Signs Temperature 36.5 C 12/09/24 06:26 Temperature Source Temporal Artery Scan 12/09/24 06:26 Pulse 86 12/09/24 06:26 Pulse 115 H 12/06/24 13:02 Respiratory Rate 18 12/09/24 06:26 Respiratory Effort Normal, Non-Labored 12/05/24 18:14 Respiratory Depth Normal 12/05/24 18:14 Respiratory Pattern Normal 12/05/24 18:14 Blood Pressure 111/56 L 12/09/24 06:26 Blood Pressure Mean 74 12/09/24 06:26 Blood Pressure Position Supine 12/05/24 18:14 Pulse Oximetry 92 12/09/24 06:26 Oxygen Delivery Method Room Air 12/09/24 06:26 Oxygen Flow Rate 0 12/09/24 06:26 Pain Level 0 12/09/24 06:26 Comment pt refused Q4 vitals 12/09/24 12:01 Comment by prior shift 12/05/24 17:21 Intake & Output 12/08/24 12/09/24 12/09/24 23:59 11:59 23:59 Intake Total 150 / 150 Output Total 800 / 1500 1350 / 1350 Balance -650 / -1350 -1350 / -1350 Intake: IV 50 / 50 Oral 100 / 100 Output: Urine 800 / 1500 1350 / 1350 Other: Urine Color Yellow Yellow Urine Appearance Clear Clear Stool Size Moderate Small Stool Characteristics Liquid Liquid Mucoid Brown Green Data Completed and Pending Labs on day of discharge: Labs from last 24 hours 12/09/24 12:36 Sodium Pending Potassium Pending Chloride Pending Carbon Dioxide Pending Anion Gap Pending BUN Pending Creatinine Pending Est GFR (CKD-EPI 2020) Pending Glucose Pending Calcium Pending Magnesium Pending Preliminary micro results at discharge 12/05/24 14:51 Blood Blood Culture - Preliminary NO GROWTH 72 HOURS 12/05/24 14:54 Blood Blood Culture - Preliminary NO GROWTH 72 HOURS PFSH All Active Problems (Updated 12/09/24 @ 10:12 by Brianda Demarco APRN) NATHAN (obstructive sleep apnea) (Chronic) Atrial fibrillation with rapid ventricular response (Acute) Urinary retention (Acute) Heart failure with mildly reduced ejection fraction (HFmrEF) (Acute) Hypertensive heart disease with heart failure with mildly reduced ejection fraction (HFmrEF) (Acute) Bacterial UTI (Acute) Hypomagnesemia (Acute) Atrial fibrillation (Chronic) Acute hypotension (Acute) Dementia (Chronic) Cognitive change (Acute) Lives in fdc (Acute) Deficit in activities of daily living (ADL) (Acute) Chronic hypoxic respiratory failure, on home oxygen therapy (Acute) Congestive heart failure (Chronic) Need for home health care (Acute) ACP (advance care planning) (Acute) Decubitus ulcer of sacral region (Acute) Yeast infection of the skin (Acute) Respiratory failure (Acute) Asthma (Chronic) Elevated BUN (Acute) COPD (chronic obstructive pulmonary disease) (Acute) Medical History Palliative care encounter Hypomagnesemia Hypokalemia Class 3 obesity Chronic respiratory failure with hypercapnia CKD (chronic kidney disease) stage 3, GFR 30-59 ml/min Atrial fibrillation Type 2 diabetes mellitus without complications HTN (hypertension) Depressive disorder GERD (gastroesophageal reflux disease) Cardiac pacemaker in situ placed 04/22/2022 in [place]. [employer] ZURITA [id number] SERIAL # [id number] RH ENTERED 04/17/24 Loose left total knee arthroplasty Contusion of toe, left Dermal mycosis Thyroid nodule Diabetic peripheral neuropathy Vitamin D deficiency Hyperparathyroidism HLD (hyperlipidemia) Anemia Leukocytosis Cellulitis Stress incontinence Diabetes Anxiety Surgical History S/P AVR replaced with bovine valve Hx of CABG Family History Father Bone cancer Mother Myocardial infarction Brother Myocardial infarction Social History Smoking/Tobacco Use Status: Former Tobacco Use Smoking risk assessment performed?: Yes Alcohol Intake: never Drug use: Never Substance use type: does not use Housing: apartment Do you feel safe at home: Yes Do you feel safe in your relationship?: Yes Additional Social history: at [facility] Time Spent with Patient Time Spent with Patient: >85 minutes Time was spent: preparing to see the patient(eg.review tests), obtaining and/or reviewing separately otained hiistory, ordering medications,tests, procedures, referring, communicating with other health nursing care partner, indepentently interpreting results, counseling the patient, care coordination and other
[2024-12-09 13:04] LABS: Anion Gap 7.3 mmol/L (3-11); BUN 11 mg/dL (7-18); CO2 28.7 mmol/L (21.0-32.0); Calcium 9.2 mg/dL (8.5-10.1); Chloride 102 mmol/L (98-107); Estimated GFR 46.05 (mL/min/1.73m2); Glucose 191 mg/dL (74-106); Magnesium 1.6 mg/dL (1.8-2.4); Potassium 4.4 mmol/L (3.5-5.1); Sodium 138 mmol/L (136-145)
--- NOTE | 2024-12-09 13:26 | W.PC.ACHO ---
Registration Status: ADM IN Primary Language: Preferred Language: ED Information & Data Chief Complaint Ron 12/05/24 14:56 Triage Note c/o rapid afib and 12/05/24 13:23 hypertension Medical / Surgical History (Last Reviewed 12/05/24 @ 14:56 by Steve Sidhu MD) Palliative care encounter Hypomagnesemia Hypokalemia Class 3 obesity Chronic respiratory failure with hypercapnia CKD (chronic kidney disease) stage 3, GFR 30-59 ml/min Atrial fibrillation Type 2 diabetes mellitus without complications HTN (hypertension) Depressive disorder GERD (gastroesophageal reflux disease) Cardiac pacemaker in situ Loose left total knee arthroplasty Contusion of toe, left Dermal mycosis Thyroid nodule Diabetic peripheral neuropathy Vitamin D deficiency Hyperparathyroidism HLD (hyperlipidemia) Anemia Leukocytosis Cellulitis Stress incontinence Diabetes Anxiety (Last Reviewed 12/05/24 @ 14:56 by Setve Sidhu MD) S/P AVR Hx of CABG Most Recent Vital Signs Temperature 36.3 C L 12/09/24 12:56 Temperature Source Axillary 12/09/24 12:56 Pulse 84 12/09/24 12:56 Pulse 115 H 12/06/24 13:02 Respiratory Rate 18 12/09/24 12:56 Respiratory Effort Normal, Non-Labored 12/05/24 18:14 Respiratory Depth Normal 12/05/24 18:14 Respiratory Pattern Normal 12/05/24 18:14 Blood Pressure 106/45 L 12/09/24 12:56 Blood Pressure Mean 65 12/09/24 12:56 Blood Pressure Position Supine 12/05/24 18:14 Pulse Oximetry 95 12/09/24 12:56 Oxygen Delivery Method Room Air 12/09/24 12:56 Oxygen Flow Rate 0 12/09/24 12:56 Pain Level 0 12/09/24 06:26 Comment pt refused Q4 vitals 12/09/24 12:01 Comment by prior shift 12/05/24 17:21 Allergies gabapentin Allergy (Unverified 12/05/24 13:47) Unknown pantoprazole Allergy (Unverified 12/05/24 13:47) Unknown semaglutide (From Ozempic) Allergy (Unverified 12/05/24 13:47) Unknown Active Medications Generic Name Dose Route Start Last Admin Trade Name Freq PRN Reason Stop Dose Admin Apixaban 5 mg 12/05/24 20:00 12/09/24 08:16 Apixaban 5 Mg Tab PO 5 mg BID RONALD Administration Atorvastatin Calcium 80 mg 12/06/24 08:30 12/09/24 08:16 Atorvastatin 40 Mg Tab PO 80 mg DAILY RONALD Administration Bimatoprost 0 ml 12/05/24 20:00 12/08/24 20:18 Bimatoprost 0.01% 2.5 Ml Btl OP 2.5 ml QPM RONALD Administration Dextrose/Water 0 gm 12/05/24 18:18 12/06/24 06:29 Dextrose 50%-Water 25 Gm/50 Ml Syr IVP 12.5 gm DIRECTED PRN Administration Empagliflozin 10 mg 12/06/24 08:30 12/09/24 08:16 Empaglifozin 10 Mg Tab PO 10 mg QAM RONALD Administration Famotidine 20 mg 12/06/24 08:30 12/09/24 08:16 Famotidine 20 Mg Tab PO 20 mg DAILY RONALD Administration Insulin Aspart 0 units 12/06/24 08:00 12/09/24 12:39 Insulin Aspart 300 Units/3 Ml Pen SC 4 unit 0800,1200,1700 RONALD Administration Protocol Insulin Glargine 40 units 12/08/24 20:00 12/08/24 20:17 Insulin Glargine 300 Units/3 Ml Pen SC 40 units QPM RONALD Administration Magnesium Oxide 200 mg 12/05/24 20:00 12/09/24 08:14 Magnesium Oxide 400 Mg Tab PO 200 mg BID RONALD Administration Melatonin 9 mg 12/05/24 20:00 12/08/24 20:19 Melatonin 3 Mg Tab PO 9 mg HS RONALD Administration Metoprolol Succinate 200 mg 12/09/24 10:00 12/09/24 13:02 Metoprolol Cr 100 Mg Tabcr PO Not Given DAILY [facility] Multivitamins 1 tab 12/06/24 08:30 12/09/24 08:16 Multivitamin Tab PO 1 tab DAILY RONALD Administration Potassium Chloride 20 meq 12/08/24 20:00 12/09/24 08:15 Potassium Chloride 20 Meq Tabcr PO 20 meq BID RONALD Administration Sodium Chloride 0 ml 12/05/24 17:04 12/06/24 14:48 Normal Saline Flush 10 Ml Syr IVP 10 ml PRN PRN Administration Sodium Chloride 0 ml 12/05/24 20:00 12/09/24 08:17 Normal Saline Flush 10 Ml Syr IVP 10 ml BID RONALD Administration Sucralfate 1 gm 12/05/24 17:04 12/09/24 11:03 Sucralfate 1 Gm Tab PO 1 gm AC & HS RONALD Administration Tiotropium Coalgate/Olodaterol 2 puff 12/06/24 08:30 12/09/24 08:36 Tiotropium/Olodaterol 10 Puff Inhaler IH 2 puffs DAILY RONALD Administration Trazodone HCl 50 mg 12/05/24 20:00 12/08/24 20:19 Trazodone 50 Mg Tab PO 50 mg HS RONALD Administration Venlafaxine HCl 150 mg 12/06/24 08:30 12/09/24 08:14 Venlafaxine 150 Mg Capcr PO 150 mg DAILY RONALD Administration IV IV Catheter Type [] Saline Lock IV Catheter Type [Left Upper Saline Lock arm] IV Catheter Type [Right Upper Saline Lock arm] IV Catheter Type [Right Saline Lock Antecubital] IV Catheter Gauge [] 22 IV Catheter Gauge [Left Upper 20 arm] IV Catheter Gauge [Right Upper 20 arm] IV Catheter Gauge [Right 18 Antecubital] Diagnostics 12/09/24 Range/Units 12:36 Sodium 138 (136-145) mmol/L Potassium 4.4 (3.5-5.1) mmol/L Chloride 102 (98-107) mmol/L Carbon Dioxide 28.7 (21.0-32.0) mmol/L Anion Gap 7.3 (3-11) mmol/L BUN 11 (7-18) mg/dL Creatinine 1.2 H (0.55-1.02) mg/dL Est GFR (CKD-EPI 2020) 46.05 (mL/min/1.73m2) Glucose 191 H (74-106) mg/dL Calcium 9.2 (8.5-10.1) mg/dL Magnesium 1.6 L (1.8-2.4) mg/dL 12/05/24 14:51 Blood Culture - Preliminary Blood NO GROWTH 72 HOURS 12/05/24 14:54 Blood Culture - Preliminary Blood NO GROWTH 72 HOURS [id number] Documentation Fingerstick Glucose Start: 12/05/24 18:18 Freq: .ACHS Status: Active Protocol: Activity Type Activity Date Activity User E-sign Co-sign Detail Recorded Client Recorded Date Recorded By Document 12/09/24 11:57 BKG DAEMON(3) [id number] 12/09/24 11:58 BKG DAEMON(4) Intake and Output - 24 Hour Total 12/05/24 13:16 thru 12/09/24 11:14 Intake Total 2640 Output Total 5350 Balance -2710 Weight 83.4 kg Intake: IV 450 Oral 1690 Other 500 Output: Urine 5350 Other: Urine Color Yellow Urine Appearance Clear Comment bladder scanner read as >999 three times. Johnson inserted and 300 mL returned Stool Size Small Stool Characteristics Liquid Mucoid Brown Green Urinary Catheter Urinary Catheter Date of 12/06/24 Insertion [Urethral (Johnson)] Time of insertion [Urethral ( 13:20 Johnson)] Problems (Last Reviewed 12/05/24 @ 14:56 by Steve Sidhu MD) NATHAN (obstructive sleep apnea) (Chronic) Atrial fibrillation with rapid ventricular response (Acute) Urinary retention (Acute) Heart failure with mildly reduced ejection fraction (HFmrEF) (Acute) Bacterial UTI (Acute) Hypomagnesemia (Acute) Atrial fibrillation (Chronic) Acute hypotension (Acute) Dementia (Chronic) Chronic hypoxic respiratory failure, on home oxygen therapy (Acute) Elevated BUN (Acute) COPD (chronic obstructive pulmonary disease) (Acute) v v v v v v v v v Sending and/or Receiving Nurses: Please use comment section below to note any information pertinent to the patient hand-off not included above. Information / Comments: Report received from: Report called to [facility] and report was given to Jaye Valenzuela at 1322. She is stable with a bp of 106/45, respiration of 18, oxygen saturation of 96% and pulse of 84.
== END 2024-12-09 13:53 | disposition skilled nursing facility (03) | DRG 309 ==
LOC: ER 16:08 → ICU 17:23 → MS 12-06 13:46
PROVIDERS: Nurse Practitioner Acute Care; Admitting Provider Hospitalist; Emergency Provider Student in an Organized Health Care Education/Training Program; PCP Family Medicine; Responsible Provider Nurse Practitioner Acute Care; Visit Provider Hospitalist
DX: I48.91 Unspecified atrial fibrillation (principal); I50.20 Unspecified systolic (congestive) heart failure; I95.9 Hypotension, unspecified; N39.0 Urinary tract infection, site not specified; E83.42 Hypomagnesemia; J96.11 Chronic respiratory failure with hypoxia; J44.9 Chronic obstructive pulmonary disease, unspecified; Z99.81 Dependence on supplemental oxygen; G47.33 Obstructive sleep apnea (adult) (pediatric); Z95.0 Presence of cardiac pacemaker; E78.5 Hyperlipidemia, unspecified; E11.22 Type 2 diabetes mellitus with diabetic chronic kidney disease; F32.A Depression, unspecified; Z95.1 Presence of aortocoronary bypass graft; N18.32 Chronic kidney disease, stage 3b; I13.0 Hypertensive heart and chronic kidney disease with heart failure and stage 1 through stage 4 chronic kidney disease, or unspecified chronic kidney disease; Z79.4 Long term (current) use of insulin; R33.9 Retention of urine, unspecified; K21.9 Gastro-esophageal reflux disease without esophagitis; E87.21 Acute metabolic acidosis; Z59.811 Housing instability, housed, with risk of homelessness; F03.C0 Unspecified dementia, severe, without behavioral disturbance, psychotic disturbance, mood disturbance, and anxiety; E86.0 Dehydration; B96.20 Unspecified Escherichia coli [E. coli] as the cause of diseases classified elsewhere; Z66 Do not resuscitate; Z73.89 Other problems related to life management difficulty; B37.2 Candidiasis of skin and nail; E66.813 Obesity, class 3; D64.9 Anemia, unspecified; F41.9 Anxiety disorder, unspecified; E11.42 Type 2 diabetes mellitus with diabetic polyneuropathy; Z95.3 Presence of xenogenic heart valve; N39.3 Stress incontinence (female) (male); Z79.01 Long term (current) use of anticoagulants; Z79.84 Long term (current) use of oral hypoglycemic drugs; R79.89 Other specified abnormal findings of blood chemistry; N18.30 Chronic kidney disease, stage 3 unspecified; I08.1 Rheumatic disorders of both mitral and tricuspid valves; B96.4 Proteus (mirabilis) (morganii) as the cause of diseases classified elsewhere; Z68.35 Body mass index [BMI] 35.0-35.9, adult
CPT/HCPCS: 00123; 36415; 80048; 80053; 87040; 87077; 93306; 94640; 96361; 96365; 96366; 96375; 97110; 97162; 97530; 99285; 81003; 81015; 83036; 83605; 83735; 84443; 84484; 85025; 87086; 87186; 93005; 94664; 94760; 99223; 99232; 99233; 99239; J0696; J1815; J3475

== ENCOUNTER → 2024-12-20 10:55 | Outpatient (BNVA) | payer MEDICARE, SELFPAY | PROVIDERS: PCP Family Medicine; Referring Provider Family Medicine; Visit Provider Internal Medicine Cardiovascular Disease | DX: I48.21 Permanent atrial fibrillation (principal); J96.11 Chronic respiratory failure with hypoxia; Z99.81 Dependence on supplemental oxygen; I50.22 Chronic systolic (congestive) heart failure | CPT/HCPCS: 99214 ==

== ENCOUNTER 2024-12-20 11:44 | Inpatient (IN) | payer MEDICARE, SELFPAY ==
[2024-12-20] VITALS (75 sets, daily range): BP systolic 80–143; BP diastolic 43–112; PULSE 0–155; RESP 9–32; TEMP 36–36.4; O2SAT 90–100
--- NOTE | 2024-12-20 11:45 | RT.EKG_ITS ---
APPROVED REPORT Exam: Resting ECG Reason for Exam: tachycardia Patient Location: E HR:129 bpm ECG Measurements Heart Rate 129 AXIS NE [id number] P [id number] QRSd 77 QRS -13 QT 375 T 42 QTc 549 Conclusion Atrial fibrillation...V-rate 97-143, irreg A-activity Low voltage, precordial leads...precordial leads <1.0mV Consider anterior infarct...Q >30mS in V2-V5 Prolonged QT interval...QTc >500mS I have reviewed and interpreted ECG and agree with software generated interpretation.
--- NOTE | 2024-12-20 11:59 | W.ED.GENAD ---
Discharge Plan Disposition Patient Disposition: Admit to [facility] Condition: Stable Discharge Details Clinical Impression: Atrial fibrillation with RVR Primary Care Provider: Kev Teran ED Provider: Gama Holliday Home Meds and New Rx's Prescriptions: No Action venlafaxine 150 mg capsule,extended release 24hr 150 mg PO DAILY sucralfate 1 gram tablet 1 g PO AC & HS atorvastatin 80 mg tablet 80 mg PO DAILY Eliquis 5 mg tablet 5 mg PO BID famotidine 20 mg tablet 20 mg PO DAILY trazodone 50 mg tablet 50 mg PO HS furosemide 40 mg tablet 40 mg PO BID Qty: 0 0RF insulin aspart U-100 [Novolog FlexPen U-100 Insulin] 100 unit/mL (3 mL) insulin pen 5 unit SUBCUT TID Lumigan 0.01 % drops 1 drp ophthalmic (eye) QPM multivitamin [Daily Multi-Vitamin] Tablet 1 tab PO DAILY Stiolto Respimat 2.5-2.5 mcg/actuation mist 2 inh inhalation DAILY Jardiance 10 mg Tablet 10 mg PO QAM Qty: 90 0RF diltiazem HCl 30 mg Tablet 60 mg PO BID Qty: 90 0RF magnesium 200 mg tablet 200 mg PO BID ciprofloxacin HCl 500 mg tablet 500 mg PO BID Rx Instructions: For e-coli UTI- started 12/03/24; take for 7 days potassium chloride 20 mEq tablet,ER particles/crystals 20 meq PO BID acetaminophen 325 mg Tablet 650 mg PO QID PRN PRNQty: 30 0RF docusate sodium [Colace] 100 mg Capsule 100 mg PO TID PRN PRNQty: 90 0RF insulin glargine [Lantus Solostar U-100 Insulin] 100 unit/mL (3 mL) Insulin Pen 40 unit SC QPM Qty: 3 0RF cefpodoxime 200 mg Tablet 100 mg PO BID Qty: 3 0RF metoprolol succinate 200 mg tablet extended release 24 hr 200 mg PO DAILY Qty: 30 0RF HPI General Date/Time Provider Initiated Documentation: 12/20/24 11:53. HPI Narrative: 79-year-old female who [facility] with a past medical history of cardiac disease including atrial fibrillation, pacemaker, bypass surgery with aortic valve replacement, dementia, diabetes mellitus, chronic kidney disease, GERD, hypertension, high cholesterol, whose CODE STATUS is DNR/DNI, who presents today for elevated heart rate. The patient was at her cardiology appointment with Dr. Tompkins when her heart rate was noted to be in the 120s. She was then transition down here for management of her A-fib with RVR. Patient admits to mild chest pressure, but she denies any other complaints. History is otherwise limited. No other modifying factors. No other complaints at this time. Related Data Home Medications ?Medication ?Instructions ?Recorded ?Confirmed apixaban 5 mg tablet (Eliquis) 5 mg PO BID 12/19/23 12/20/24 atorvastatin 80 mg tablet 80 mg PO DAILY 12/19/23 12/20/24 famotidine 20 mg tablet 20 mg PO DAILY 12/19/23 12/20/24 trazodone 50 mg tablet 50 mg PO HS 12/19/23 12/20/24 sucralfate 1 gram tablet 1 g PO AC & HS 04/09/24 12/20/24 furosemide 40 mg tablet 40 mg PO BID #0 tabs 05/29/24 12/20/24 bimatoprost 0.01 % eye drops 1 drp ophthalmic (eye) QPM 07/08/24 12/20/24 (Lumigan) multivitamin (Daily Multi-Vitamin 1 tab PO DAILY 07/08/24 12/20/24 tablet) tiotropium 2.5 mcg-olodaterol 2.5 2 inh inhalation DAILY 07/08/24 12/20/24 mcg/actuation mist for inhalation (Stiolto Respimat) empagliflozin 10 mg tablet 10 mg PO QAM #90 tabs 07/12/24 12/20/24 (Jardiance) diltiazem HCl 30 mg tablet 60 mg (2 x 30 mg) PO BID #90 tabs 08/23/24 12/20/24 insulin aspart U-100 100 unit/mL 5 unit subcut TID 11/14/24 12/20/24 (3 mL) subcutaneous pen (Novolog FlexPen U-100 Insulin aspart) venlafaxine 150 mg 150 mg PO DAILY 11/14/24 12/20/24 capsule,extended release 24 hr ciprofloxacin HCl 500 mg tablet 500 mg PO BID 12/05/24 12/20/24 magnesium 200 mg tablet 200 mg PO BID 12/05/24 12/20/24 potassium chloride 20 mEq 20 meq PO BID 12/05/24 12/20/24 tablet,extended release(part/cryst) acetaminophen 325 mg tablet 650 mg (2 x 325 mg) PO QID PRN PRN 12/09/24 12/20/24 #30 tabs cefpodoxime 200 mg tablet 100 mg (1/2 x 200 mg) PO BID #3 12/09/24 12/20/24 tabs docusate sodium 100 mg capsule 100 mg PO TID PRN PRN #90 caps 12/09/24 12/20/24 (Colace) insulin glargine 100 unit/mL (3 40 unit (0.4 mL) SC QPM #3 mL 12/09/24 12/20/24 mL) subcutaneous pen (Lantus Solostar U-100 Insulin) metoprolol succinate 200 mg 200 mg PO DAILY #30 tabs 12/09/24 12/20/24 tablet,extended release 24 hr Previous Rx's ?Medication ?Instructions ?Recorded furosemide 40 mg tablet 40 mg PO BID #0 tabs 05/29/24 empagliflozin 10 mg tablet 10 mg PO QAM #90 tabs 07/12/24 (Jardiance) diltiazem HCl 30 mg tablet 60 mg (2 x 30 mg) PO BID #90 tabs 08/23/24 acetaminophen 325 mg tablet 650 mg (2 x 325 mg) PO QID PRN PRN 12/09/24 #30 tabs cefpodoxime 200 mg tablet 100 mg (1/2 x 200 mg) PO BID #3 12/09/24 tabs docusate sodium 100 mg capsule 100 mg PO TID PRN PRN #90 caps 12/09/24 (Colace) insulin glargine 100 unit/mL (3 40 unit (0.4 mL) SC QPM #3 mL 12/09/24 mL) subcutaneous pen (Lantus Solostar U-100 Insulin) metoprolol succinate 200 mg 200 mg PO DAILY #30 tabs 12/09/24 tablet,extended release 24 hr Allergies Allergy/AdvReac Type Severity Reaction Status Date / Time gabapentin Allergy Unknown Verified 12/20/24 11:52 pantoprazole Allergy Unknown Verified 12/20/24 11:52 semaglutide (From Ozempic) Allergy Unknown Verified 12/20/24 11:52 General Stated Complaint: Arrhythmia ZARIA: 3 Exam Narrative Exam Narrative: 1.Const: Well-nourished, Well-developed, appearing stated age 2.Eyes: PERRL, no conjunctival injection, and symmetrical lids. 3.ENT: Atraumatic external nose and ears. Moist MM. Neck: Symmetric, trachea midline, No thyromegaly. 4.CVS: +S1/S2, Peripheral pulses 2+ and equal in all extremities. Brisk capillary refill in all extremities. 5.RESP: Unlabored respiratory effort. Clear to auscultation bilaterally. No wheezes rales or rhonchi 6.GI: Soft, Nontender/Nondistended, No hepatosplenomegaly. No guarding or rebound. 7.MSK: Normocephalic/Atraumatic, Extremities w/o deformity or ttp No cyanosis or clubbing, Normal movement of all extremities. No pitting edema 8.Skin: Warm, Dry. No rashes or lesions. 9.Neuro: equipment operat0r II-XII grossly intact. Sensation grossly intact, no focal neurologic deficits. 10.Psych: (AAO) x2. Appropriate mood and affect Course Vital Signs Vital signs: Vital Signs Pulse 129 H 12/20/24 11:47 Respiratory Rate 12/20/24 11:47 Blood Pressure 122/64 12/20/24 11:47 Pulse Oximetry 100 12/20/24 11:47 Pulse 129 H 12/20/24 11:47 Respiratory Rate 22 12/20/24 11:47 Blood Pressure 122/64 12/20/24 11:47 Pulse Oximetry 100 12/20/24 11:47 Oxygen Delivery Method Nasal Cannula 12/20/24 11:47 Oxygen Flow Rate 2 12/20/24 11:47 Medical Decision Making 79-year-old female who [facility] with a past medical history of cardiac disease including atrial fibrillation, pacemaker, bypass surgery with aortic valve replacement, dementia, diabetes mellitus, chronic kidney disease, GERD, hypertension, high cholesterol, whose CODE STATUS is DNR/DNI, who presents today for elevated heart rate. The patient was at her cardiology appointment with Dr. Tompkins when her heart rate was noted to be in the 120s. She was then transition down here for management of her A-fib with RVR. Patient admits to mild chest pressure, but she denies any other complaints. History is otherwise limited. No other modifying factors. No other complaints at this time. Exam demonstrates well-appearing female, no pitting edema in the lower extremities. Blood pressure stable, heart rate elevated in the 120s to 130s. Will give 15 mg of IV Cardizem, no indication for emergent electrocardioversion. We will monitor closely and reassess. 3:23 PM Laboratory workup has returned, no white count of significance or bandemia. Platelets stable. Electrolytes stable, renal function stable, mild transaminitis at 50 and 67 for AST and ALT respectively. proBNP notably higher than normal at 7927 however she does not have any peripheral edema. Pending formal x-ray results. However she has no severe hypoxemia. TSH slightly high, but free T4 is normal. Initial troponin mildly elevated at 57 still pending repeat troponins. There was a delay on labs secondary to challenging IV access. Patient was given 15 of diltiazem came down slightly to the 110s, she was given another 10 of diltiazem and then intermittently popped down to the 80s 90s and then went back up to the 130s consistently. Blood pressure did mildly drop at this time to the 80s. We will avoid fluid bolus secondary to her known CHF. I do not feel that she would do well with additional large boluses of Cardizem. We have transition to Cardizem drip and will continue to titrate towards rate control. I suspect the mild bump in troponins are secondary to mild demand ischemia from her elevated heart rate. We will reach out to the hospitalist for admission. 3:55 PM Discussed the case with the hospitalist Dr. Lafleur, he agrees with assessment and plan. I have extensively reviewed the treatment plan with the patient. I have addressed all patient concerns at this time. I have also discussed the plan with the admitting physician and they agree with the current assessment and plan and have agreed to assume responsibility for the patient. All parties demonstrate verbal understanding and agreement with our assessment and plan at this time. The documentation in this chart was dictated using latakoo dictation software. Please excuse any dictation errors. Additionally, bedside POCUS was done, ejection fraction still remains around 20 to 25% on limited bedside echo. Quality:SDOH Health Related Social Needs: Health related social needs risk of homeless education Critical Care Time Critical Care Time Critical Care Time: Yes Total Critical Care Time: 45 Attestation: Upon my evaluation, this patient had a high probability of imminent or life-threatening deterioration, which required my direct attention, intervention, and personal management. I have personally provided 45 minutes of critical care time exclusive of time spent on separately billable procedures. Time includes review of laboratory data, radiology results, discussion with consultants, and monitoring for potential decompensation. Interventions were performed as documented. 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) (Acute) Atrial fibrillation (Chronic) Dementia (Chronic) Cognitive change (Acute) Lives in [place] [facility] (Acute) Deficit in activities of daily living (ADL) (Acute) Chronic hypoxic respiratory failure, on home oxygen therapy (Acute) Congestive heart failure (Chronic) Need for home health care (Acute) ACP (advance care planning) (Acute) Decubitus ulcer of sacral region (Acute) Yeast infection of the skin (Acute) Respiratory failure (Acute) Asthma (Chronic) Medical History Urinary retention Heart failure with mildly reduced ejection fraction (HFmrEF) Bacterial UTI Hypomagnesemia Elevated BUN Atrial fibrillation with rapid ventricular response COPD (chronic obstructive pulmonary disease) Palliative care encounter Hypomagnesemia Hypokalemia Class 3 obesity Chronic respiratory failure with hypercapnia CKD (chronic kidney disease) stage 3, GFR 30-59 ml/min Atrial fibrillation Type 2 diabetes mellitus without complications HTN (hypertension) Depressive disorder GERD (gastroesophageal reflux disease) Cardiac pacemaker in situ placed 04/22/2022 in [place]. [employer] Lottie ZURITA [id number] SERIAL # [id number] RH ENTERED 04/17/24 Loose left total knee arthroplasty Contusion of toe, left Dermal mycosis Thyroid nodule Diabetic peripheral neuropathy Vitamin D deficiency Hyperparathyroidism HLD (hyperlipidemia) Anemia Leukocytosis Cellulitis Stress incontinence Diabetes Anxiety Surgical History S/P AVR replaced with bovine valve Hx of CABG Family History Father Bone cancer Mother Myocardial infarction Brother Myocardial infarction Social History Smoking/Tobacco Use Status: Former Tobacco Use Smoking risk assessment performed?: Yes Alcohol Intake: never Drug use: Never Substance use type: does not use Housing: apartment Do you feel safe at home: Yes Do you feel safe in your relationship?: Yes Additional Social history: at [facility] POCUS Exam (ED) Limited Cardiac Exam DATE OF EXAM: 12/20/24 TIME OF EXAM: 15:51 PROVIDER THAT PERFORMED THE STUDY: Gama Holliday IS THIS A REPEAT EXAM DURING THIS ENCOUNTER: no REASON FOR EXAM: Evaluation of LV function VISUALIZED STRUCTURES: Left atrium, Left ventricle, Right ventricle and Interventricular septum VIEW OBTAINED: Parasternal long-axis PERTINENT FINDINGS/IMPRESSION: LV dysfunction :severe Exam complete
[2024-12-20] MEDS: dilTIAZem 25 MG/5 ML VIAL 15 MG IVP (13:12)
[2024-12-20 13:15] LABS: Abs Immature Grans 0.06 10^3/uL (0.0-0.06); HCT 45.6 % (36.0-46.0); HGB 14.6 g/dL (11.2-15.7); Immature Grans % 0.5 %; MCH 29.7 pg (27.0-33.0); MCHC 32.0 % (32.0-36.0); MCV 93 fL (80-95); MPV 13.0 fL (8.0-11.0); Platelet Count 204 10^3/uL (130-400); RBC 4.91 10^6/uL (3.93-5.22); RDW 20.3 % (11.7-14.6); RDW-SD 68.9 fL; WBC 11.06 10^3/uL (4.4-10.8)
[2024-12-20] MEDS: dilTIAZem 25 MG/5 ML VIAL 10 MG IVP (13:21)
[2024-12-20 13:35] LABS: Anisocytosis 2+; Poikilocytes 2+
[2024-12-20 13:44] LABS: INR 1.2 (0.9-1.1); PTT Activated 27.1 sec (20.6-30.2); Prothrombin Time 12.0 sec (9.1-11.1)
[2024-12-20 14:12] LABS: ALT 67 U/L (14-59); AST 50 U/L (15-37); Albumin 2.7 g/dL (3.4-5.0); Alkaline Phosphatase 177 U/L (46-116); Anion Gap 8.8 mmol/L (3-11); BUN 35 mg/dL (7-18); Bilirubin, Total 0.7 mg/dL (0.2-1.0); CO2 30.2 mmol/L (21.0-32.0); Calcium 9.8 mg/dL (8.5-10.1); Chloride 93 mmol/L (98-107); Estimated GFR 38.27 (mL/min/1.73m2); Glucose 405 mg/dL (74-106); NT-proBNP 7927 pg/mL (<300); Potassium 4.0 mmol/L (3.5-5.1); Sodium 132 mmol/L (136-145); TSH (W/Ref FT4) 4.05 uIU/mL (0.36-3.74); Total Protein 7.4 g/dL (6.4-8.2)
[2024-12-20 14:17] LABS: Troponin I 57 ng/L (<or=51)
--- NOTE | 2024-12-20 14:45 | DI.RAD_ITS ---
Exam(s) XR PORTABLE CHEST AP EXAM: XR PORTABLE CHEST AP CLINICAL HISTORY: EVAL FOR CHF. TECHNIQUE: 2D digital imaging was performed. COMPARISON: CR XR PORTABLE CHEST AP from 08/18/2024 FINDINGS: Single AP portable view. Again noted is a bipolar left subclavian pacemaker lead tips in RA and RV and an aortic valve TAVR is again noted, unchanged in position. Heart size is unchanged, being upper normal. The mediastinum is not widened. There are mild increased markings in both lung islas although less so than was evident in August 2024. May represent pulmonary venous hypertension pattern or infectious. There are no obvious pleural effusions on this single AP portable view IMPRESSION: Increased lung markings but less than was evident on the chest x-ray of 08/18/2024.Nevertheless, cannot exclude early CHF pattern. This patient exhibited pulmonary edema pattern on chest x-ray of 08/18/2024. DATA REPOSITORY: RADIATION DOSE DELIVERED:
[2024-12-20] MEDS: Insulin REGULAR-Human 100 UNITS/ML UNIT 14 UNITS SC (14:52)
[2024-12-20] MEDS: dilTIAZem 125 MG in Normal Saline 100 ML 10 MG IV (14:53)
[2024-12-20 15:39] LABS: Troponin I 55 ng/L (<or=51)
[2024-12-20 17:32] LABS: Troponin I 46 ng/L (<or=51)
--- NOTE | 2024-12-20 18:07 | W.PM.HP.N ---
Date of service: 12/20/24 Time of Service: 18:07 Assessment and Plan Assessment and plan (1) Atrial fibrillation with RVR: Status: Acute Assessment and plan: Now on diltiazem drip in addition to home metoprololol. With HFrEF any negative inotrop may be problematic, but I think major stress on heart now is rate so will continue dilt drip, try to keep rates 80-110. Case reviewed with Dr. Tompkins from cardiology, will try starting amiodarone orally at 400mg BID for 2 weeks, then 200mg BID x 4 weeks, then daily Follow TSH, LFTs, baseline done. She had been offered AV node ablation at EP at [facility], she has pacemaker, could consider if other options fail and this is c/w her goals of care. For now, monitor in ICU. If not doing well with dilt, could try pushes of IV metoprolol as this worked last admission. Continue apixaban, covers DVT prophylaxis as well (2) Heart failure with reduced ejection fraction: Status: Acute Assessment and plan: BNaP up, but I don't think she is in overt fluid overload On POCUS LVEF simliar to 25% seen recently, which is a downtrend She is on beta yue and SGLT2i but not IGLESIA or MRA, with BPs she may not tolate full GDMT (3) Elevated troponin level not due myocardial infarction: Status: Acute Assessment and plan: Mild elevation in setting of afib with RVR, flat to downtrending to normal. EKG reassuring, not c/w ACS. (4) Chronic hypoxic respiratory failure, on home oxygen therapy: Status: Acute Assessment and plan: Related to chronic CHF, at baseline oxygen requirement (5) Dementia: Status: Chronic Assessment and plan: This does seem to be progressing, likely severe at this point With many medical issues, will engage palliative as well. (6) Class 3 obesity: Assessment and plan: chornic issue, did not tolerate semaglutide. (7) Decubitus ulcer of sacral region: Status: Acute Assessment and plan: offload, wound care. (8) CKD (chronic kidney disease) stage 3, GFR 30-59 ml/min: Assessment and plan: Near baseline, follow on SGLT2i (9) Hyponatremia: Status: Acute Assessment and plan: Mild, a/w functional low volume state, though I don't think IV fluids would be a good idea, follow. (10) Elevated transaminase level: Status: Acute Assessment and plan: Associated with some hemodynamic instability. I don't think she is in bartolo fluid overload. Will need to follow this, especially on amiodarone. (11) NATHAN (obstructive sleep apnea): Status: Chronic Assessment and plan: it appears she isn't treated chronically with CPAP/BiPAP History of Present Illness History of Present Illness Chief Complaint: tachycardia Narrative: 79 yo female with a PMHx of severe dementia, HFrEF w last LVEF 25% 12/06/24, chronic hypoxic respiratory failure on home O2 2 liters, atrial-fibrillation on Eliquis and metoprolol, DMII, resident of [facility] who was sent down from cardiology office after she was found to have pulse up to 130s and nursing was unable to get a blood pressure. In the ED she described some chest pressure with her rate in the 120s but her blood pressure was adequate. She was given IV diltiazem which imrpoved her rate, though her blood pressure breifly was as low as 84/51 before rebounding. She was started on diltiazem drip with rates running around 100 bpm and stable BP. Currently the patient states she no longer has chest pressure or pain. She denies shortness of breath. She isn't sure why she is here, and cannot give a history. She was recently admitted 12/05- for atrial fibrillation with RVR, at that visit her rate was controlled with IV metoprolol and her oral metoprolol succinate was titrated up to 200mg with discontinuation of diltiazem. Review of Systems Narrative: she is able to respond to direct questions appropriately All systems reviewed & are unremarkable except as noted in HPI and below PFSH All Active Problems (Updated 12/20/24 @ 18:30 by Chi Solitario) Elevated troponin level not due myocardial infarction (Acute) Elevated transaminase level (Acute) Hyponatremia (Acute) Heart failure with reduced ejection fraction (Acute) Atrial fibrillation with RVR (Acute) Atrial fibrillation (Chronic) Dementia (Chronic) Cognitive change (Acute) Lives in long-term (Acute) Deficit in activities of daily living (ADL) (Acute) Chronic hypoxic respiratory failure, on home oxygen therapy (Acute) Congestive heart failure (Chronic) Need for home health care (Acute) ACP (advance care planning) (Acute) Decubitus ulcer of sacral region (Acute) NATHAN (obstructive sleep apnea) (Chronic) Yeast infection of the skin (Acute) Respiratory failure (Acute) Asthma (Chronic) Medical History Urinary retention Heart failure with mildly reduced ejection fraction (HFmrEF) Bacterial UTI Hypomagnesemia Hypomagnesemia Palliative care encounter Hypokalemia Elevated BUN Atrial fibrillation with rapid ventricular response COPD (chronic obstructive pulmonary disease) Class 3 obesity Chronic respiratory failure with hypercapnia CKD (chronic kidney disease) stage 3, GFR 30-59 ml/min Atrial fibrillation Loose left total knee arthroplasty Type 2 diabetes mellitus without complications HTN (hypertension) Contusion of toe, left Dermal mycosis Thyroid nodule Diabetic peripheral neuropathy Vitamin D deficiency Hyperparathyroidism HLD (hyperlipidemia) Anemia Leukocytosis Depressive disorder GERD (gastroesophageal reflux disease) Cellulitis Stress incontinence Diabetes Cardiac pacemaker in situ placed 04/22/2022 in [place]. [employer]med[facility] ZURITA [id number] SERIAL # [id number] RH ENTERED 04/17/24 Anxiety Surgical History S/P AVR replaced with bovine valve Hx of CABG Family History Father Bone cancer Mother Myocardial infarction Brother Myocardial infarction Social History Smoking/Tobacco Use Status: Former Tobacco Use Smoking risk assessment performed?: Yes Alcohol Intake: never Drug use: Never Substance use type: does not use Housing: apartment Do you feel safe at home: Yes Do you feel safe in your relationship?: Yes Additional Social history: at [facility] Meds Allergies and Home Medications Allergies Allergy/AdvReac Type Severity Reaction Status Date / Time gabapentin Allergy Unknown Verified 12/20/24 11:52 pantoprazole Allergy Unknown Verified 12/20/24 11:52 semaglutide (From Ozempic) Allergy Unknown Verified 12/20/24 11:52 Home Medications ?Medication ?Instructions ?Recorded ?Confirmed ?Type apixaban 5 mg tablet (Eliquis) 5 mg PO BID 12/19/23 12/20/24 History atorvastatin 80 mg tablet 80 mg PO DAILY 12/19/23 12/20/24 History famotidine 20 mg tablet 20 mg PO DAILY 12/19/23 12/20/24 History trazodone 50 mg tablet 50 mg PO HS 12/19/23 12/20/24 History sucralfate 1 gram tablet 1 g PO AC & HS 04/09/24 12/20/24 History furosemide 40 mg tablet 40 mg PO BID #0 tabs 05/29/24 12/20/24 Rx bimatoprost 0.01 % eye drops 1 drp ophthalmic (eye) QPM 07/08/24 12/20/24 History (Lumigan) multivitamin (Daily Multi-Vitamin 1 tab PO DAILY 07/08/24 12/20/24 History tablet) tiotropium 2.5 mcg-olodaterol 2.5 2 inh inhalation DAILY 07/08/24 12/20/24 History mcg/actuation mist for inhalation (Stiolto Respimat) empagliflozin 10 mg tablet 10 mg PO QAM #90 tabs 07/12/24 12/20/24 Rx (Jardiance) diltiazem HCl 30 mg tablet 60 mg (2 x 30 mg) PO BID #90 tabs 08/23/24 12/20/24 Rx insulin aspart U-100 100 unit/mL 5 unit subcut TID 11/14/24 12/20/24 History (3 mL) subcutaneous pen (Novolog FlexPen U-100 Insulin aspart) venlafaxine 150 mg 150 mg PO DAILY 11/14/24 12/20/24 History capsule,extended release 24 hr ciprofloxacin HCl 500 mg tablet 500 mg PO BID 12/05/24 12/20/24 History magnesium 200 mg tablet 200 mg PO BID 12/05/24 12/20/24 History potassium chloride 20 mEq 20 meq PO BID 12/05/24 12/20/24 History tablet,extended release(part/cryst) acetaminophen 325 mg tablet 650 mg (2 x 325 mg) PO QID PRN PRN 12/09/24 12/20/24 Rx #30 tabs cefpodoxime 200 mg tablet 100 mg (1/2 x 200 mg) PO BID #3 12/09/24 12/20/24 Rx tabs docusate sodium 100 mg capsule 100 mg PO TID PRN PRN #90 caps 12/09/24 12/20/24 Rx (Colace) insulin glargine 100 unit/mL (3 40 unit (0.4 mL) SC QPM #3 mL 12/09/24 12/20/24 Rx mL) subcutaneous pen (Lantus Solostar U-100 Insulin) metoprolol succinate 200 mg 200 mg PO DAILY #30 tabs 12/09/24 12/20/24 Rx tablet,extended release 24 hr Exam Narrative Exam Narrative: GEN: Alert, oriented to self only, cannot give history, but pleasant and cooperative, smiling, No acute distress at rest lying at 20 degrees in bed. HEENT: Head atraumatic. Conjunctiva clear, no icterus. PEERL, EOMI. no rhinorrhea. MMM, OP benign. Neck is supple with no masses or lymphadenopathy, trachea midline LUNGS: Bibasilar rales, otherwise CTAB with normal effort in bed, 2 liters via NC CV: irregularly irregular, tachycardic in 100s with no murmurs, gallops, or rubs. No elevation JVP ABD: very active bowel sounds, soft, nontender and nondistended. EXT: no cyanosis, clubbing. Subtle trace edema at ankles. not tender. MSK: No joint redness or swelling NEURO: CN 2-12 grossly intact. Normal movement of 4 extremities. Normal speech and coordination. No tremor SKIN: No rashes or open wounds other than dressed stage 2 sacral ulcer (bandage not taken down, documented in ED nursing) PSYCH: normal mood and affect Results Imaging Chest x-ray: report reviewed (ncreased lung markings but less than was evident on the chest x-ray of 08/18/2024.Nevertheless, cannot exclude early CHF pattern. This patient exhibited pulmonary edema pattern on chest x-ray of 08/18/2024.) and image reviewed Labs 12/20/24 13:05 12/20/24 13:30 Labs: Laboratory Results - last 24 hr 12/20/24 12/20/24 12/20/24 13:05 13:30 14:52 WBC 11.06 H RBC 4.91 Hgb 14.6 Hct 45.6 MCV 93 MCH 29.7 MCHC 32.0 RDW 20.3 H Plt Count 204 MPV 13.0 H Immature Gran % 0.5 Neutrophils % 67.3 Lymphocytes % 18.6 Monocytes % 9.0 Eosinophils % 3.8 Basophils % 0.8 Nucleated RBC % 0.0 Absolute Neutrophils 7.44 H Absolute Lymphocytes 2.06 Absolute Monocytes 1.00 H Absolute Eosinophils 0.42 Absolute Basophils 0.09 RBC Morphology See Below Poikilocytosis 2+ Anisocytosis 2+ PT 12.0 H INR 1.2 H APTT 27.1 Sodium Cancelled 132 L Potassium Cancelled 4.0 Chloride Cancelled 93 L Carbon Dioxide Cancelled 30.2 Anion Gap Cancelled 8.8 BUN Cancelled 35 H Creatinine Cancelled 1.4 H Est GFR (CKD-EPI 2020) Cancelled 38.27 Glucose Cancelled 405 H Calcium Cancelled 9.8 Total Bilirubin Cancelled 0.7 AST Cancelled 50 H ALT Cancelled 67 H Alkaline Phosphatase Cancelled 177 H Troponin I Cancelled 57 H* 55 H* NT-Pro-B Natriuret Pep Cancelled 7927 H Total Protein Cancelled 7.4 Albumin Cancelled 2.7 L TSH Cancelled 4.05 H Free T4 1.18 12/20/24 16:55 WBC RBC Hgb Hct MCV MCH MCHC RDW Plt Count MPV Immature Gran % Neutrophils % Lymphocytes % Monocytes % Eosinophils % Basophils % Nucleated RBC % Absolute Neutrophils Absolute Lymphocytes Absolute Monocytes Absolute Eosinophils Absolute Basophils RBC Morphology Poikilocytosis Anisocytosis PT INR APTT Sodium Potassium Chloride Carbon Dioxide Anion Gap BUN Creatinine Est GFR (CKD-EPI 2020) Glucose Calcium Total Bilirubin AST ALT Alkaline Phosphatase Troponin I 46 NT-Pro-B Natriuret Pep Total Protein Albumin TSH Free T4 Last Vital Signs Pulse 120 H 12/20/24 17:03 Resp 18 12/20/24 16:51 BP 110/85 12/20/24 17:01 Pulse Ox 97 12/20/24 17:03 Time Spent Time spent with Patient: >75 minutes Time was spent: preparing to see the patient(eg.review tests), obtaining and/or reviewing separately otained hiistory, ordering medications,tests, procedures, referring, communicating with other health manager urgent care, indepentently interpreting results, counseling the patient and care coordination
[2024-12-20] MEDS: Insulin Aspart 300 UNITS/3 ML PEN SC (18:22)
[2024-12-20] MEDS: Sucralfate 1 GM TAB PO ×2 (18:28→21:15)
[2024-12-20] MEDS: Furosemide 40 MG TAB PO (18:28)
[2024-12-20 19:05] LABS: MRSA PCR Positive (Negative)
--- NOTE | 2024-12-20 19:42 | W.PC.ACHO ---
Registration Status: ADM IN Primary Language: Preferred Language: ED Information & Data Chief Complaint Arrhythmia 12/20/24 12:03 Triage Note Patient was here seeing 12/20/24 11:47 Turner for a rapid heart rate. Denies CP/SOB today. Medical / Surgical History (Last Reviewed 12/20/24 @ 18:14 by Chi Solitario) Urinary retention Heart failure with mildly reduced ejection fraction (HFmrEF) Bacterial UTI Hypomagnesemia Elevated BUN Atrial fibrillation with rapid ventricular response COPD (chronic obstructive pulmonary disease) Palliative care encounter Hypomagnesemia Hypokalemia Class 3 obesity Chronic respiratory failure with hypercapnia CKD (chronic kidney disease) stage 3, GFR 30-59 ml/min Atrial fibrillation Type 2 diabetes mellitus without complications HTN (hypertension) Depressive disorder GERD (gastroesophageal reflux disease) Cardiac pacemaker in situ Loose left total knee arthroplasty Contusion of toe, left Dermal mycosis Thyroid nodule Diabetic peripheral neuropathy Vitamin D deficiency Hyperparathyroidism HLD (hyperlipidemia) Anemia Leukocytosis Cellulitis Stress incontinence Diabetes Anxiety (Last Reviewed 12/20/24 @ 18:14 by Chi Solitario) S/P AVR Hx of CABG Most Recent Vital Signs Temperature 36.0 C L 12/20/24 17:45 Temperature Source Tympanic 12/20/24 17:45 Pulse 84 12/20/24 18:00 Pulse 84 12/20/24 18:00 Respiratory Rate 27 H 12/20/24 18:00 Respiratory Effort Normal, Non-Labored 12/20/24 15:55 Respiratory Depth Normal 12/20/24 15:55 Respiratory Pattern Normal 12/20/24 15:55 Blood Pressure 82/52 L 12/20/24 17:16 Blood Pressure Mean 61 12/20/24 17:16 Pulse Oximetry 98 12/20/24 18:00 Oxygen Delivery Method Nasal Cannula 12/20/24 15:55 Oxygen Flow Rate 2 12/20/24 15:55 Pain Level 0 12/20/24 13:39 Allergies gabapentin Allergy (Verified 12/20/24 11:52) Unknown pantoprazole Allergy (Verified 12/20/24 11:52) Unknown semaglutide (From Ozempic) Allergy (Verified 12/20/24 11:52) Unknown Precautions Isolation Standard precaution 12/20/24 11:53 Active Medications Generic Name Dose Route Start Last Admin Trade Name Freq PRN Reason Stop Dose Admin Furosemide 40 mg 12/20/24 16:00 12/20/24 18:28 Furosemide 40 Mg Tab PO 40 mg BID DIURETIC RONALD Administration Diltiazem HCl 125 mg/ Sodium 125 mls @ 10 mls/hr 12/20/24 14:15 12/20/24 14:53 Chloride IV 10 mg/hr INFUSION RONALD 10 mls/hr Protocol Administration 10 MG/HR Insulin Aspart 5 units 12/20/24 17:00 12/20/24 18:22 Insulin Aspart 300 Units/3 Ml Pen SC 5 units 0800,1200,1700 RONALD Administration Sucralfate 1 gm 12/20/24 16:30 12/20/24 18:28 Sucralfate 1 Gm Tab PO 1 gm AC & HS RONALD Administration IV IV Catheter Type [Right Saline Lock Forearm] IV Catheter Gauge [Right 20 Forearm] Diet Orders Category Date Time Status Diabetes Consistent CHO/Heart Healthy [DIET] Nutrition 12/20/24 Dinner Active Diagnostics 12/20/24 12/20/24 12/20/24 Range/Units 16:55 16:10 14:52 WBC (4.4-10.8) 10^3/uL RBC (3.93-5.22) 10^6/uL Hgb (11.2-15.7) g/dL Hct (36.0-46.0) % MCV (80-95) fL MCH (27.0-33.0) pg MCHC (32.0-36.0) % RDW (11.7-14.6) % Plt Count (130-400) 10^3/uL MPV (8.0-11.0) fL Immature Gran % % Neutrophils % % Lymphocytes % % Monocytes % % Eosinophils % % Basophils % % Nucleated RBC % (0.0-0.3) % Absolute Neutrophils (1.2-6.7) 10^3/uL Absolute Lymphocytes (1.2-3.4) 10^3/uL Absolute Monocytes (0.1-0.8) 10^3/uL Absolute Eosinophils (0.0-0.7) 10^3/uL Absolute Basophils (0.0-0.2) 10^3/uL RBC Morphology Poikilocytosis Anisocytosis PT (9.1-11.1) sec INR (0.9-1.1) APTT (20.6-30.2) sec Sodium Potassium Chloride Carbon Dioxide Anion Gap BUN Creatinine Est GFR (CKD-EPI 2020) Glucose Calcium Total Bilirubin AST ALT Alkaline Phosphatase Troponin I 46 55 H* NT-Pro-B Natriuret Pep Total Protein Albumin TSH Free T4 (0.76-1.46) ng/dL MRSA (TEM-PCR) Positive A (Negative) 12/20/24 12/20/24 Range/Units 13:30 13:05 WBC 11.06 H (4.4-10.8) 10^3/uL RBC 4.91 (3.93-5.22) 10^6/uL Hgb 14.6 (11.2-15.7) g/dL Hct 45.6 (36.0-46.0) % MCV 93 (80-95) fL MCH 29.7 (27.0-33.0) pg MCHC 32.0 (32.0-36.0) % RDW 20.3 H (11.7-14.6) % Plt Count 204 (130-400) 10^3/uL MPV 13.0 H (8.0-11.0) fL Immature Gran % 0.5 % Neutrophils % 67.3 % Lymphocytes % 18.6 % Monocytes % 9.0 % Eosinophils % 3.8 % Basophils % 0.8 % Nucleated RBC % 0.0 (0.0-0.3) % Absolute Neutrophils 7.44 H (1.2-6.7) 10^3/uL Absolute Lymphocytes 2.06 (1.2-3.4) 10^3/uL Absolute Monocytes 1.00 H (0.1-0.8) 10^3/uL Absolute Eosinophils 0.42 (0.0-0.7) 10^3/uL Absolute Basophils 0.09 (0.0-0.2) 10^3/uL RBC Morphology See Below Poikilocytosis 2+ Anisocytosis 2+ PT 12.0 H (9.1-11.1) sec INR 1.2 H (0.9-1.1) APTT 27.1 (20.6-30.2) sec Sodium 132 L Cancelled Potassium 4.0 Cancelled Chloride 93 L Cancelled Carbon Dioxide 30.2 Cancelled Anion Gap 8.8 Cancelled BUN 35 H Cancelled Creatinine 1.4 H Cancelled Est GFR (CKD-EPI 2020) 38.27 Cancelled Glucose 405 H Cancelled Calcium 9.8 Cancelled Total Bilirubin 0.7 Cancelled AST 50 H Cancelled ALT 67 H Cancelled Alkaline Phosphatase 177 H Cancelled Troponin I 57 H* Cancelled NT-Pro-B Natriuret Pep 7927 H Cancelled Total Protein 7.4 Cancelled Albumin 2.7 L Cancelled TSH 4.05 H Cancelled Free T4 1.18 (0.76-1.46) ng/dL MRSA (TEM-PCR) (Negative) [facility] Documentation Fingerstick Glucose Start: 12/20/24 18:22 Freq: Status: Complete Protocol: Activity Type Activity Date Activity User E-sign Co-sign Detail Recorded Client Recorded Date Recorded By Document 12/20/24 18:20 BKG DAEMON(3) [id number] 12/20/24 18:22 BKG DAEMON(4) Intake and Output - 24 Hour Total 12/20/24 11:44 thru 12/20/24 17:50 Weight 86 kg Other: Comment New Pure wick applied a this time. Stool Size Small Stool Characteristics Soft Falls Risk Assessment History of Falls Previous History 12/20/24 12:19 Tubes/Lines W/no contributing factors 12/20/24 12:19 Cognition Cognitive impairment 12/20/24 12:19 Fall Total Score 40 12/20/24 12:19 Level of Risk Moderate Risk 12/20/24 12:19 Problems (Last Reviewed 12/20/24 @ 18:14 by Chi Solitario) Elevated troponin level not due myocardial infarction (Acute) Elevated transaminase level (Acute) Hyponatremia (Acute) Heart failure with reduced ejection fraction (Acute) Atrial fibrillation with RVR (Acute) NATHAN (obstructive sleep apnea) (Chronic) Dementia (Chronic) Chronic hypoxic respiratory failure, on home oxygen therapy (Acute) Decubitus ulcer of sacral region (Acute) v v v v v v v v v Sending and/or Receiving Nurses: Please use comment section below to note any information pertinent to the patient hand-off not included above. Information / Comments: Diltiazem Drip infusing 10 mg/hr. HR previously in 140's now at 117 bpm. Attempted to collect urine sample via straight catherization, but patient became too combative and refused. Multiple attempts at IV start and finally got ultrasound guided IV access in RFA. [place] in place. MRSA sample collected. Report received from: Elise Dumont RN
[2024-12-20] MEDS: Bimatoprost 0.01% 2.5 ML BTL OP (19:48)
[2024-12-20] MEDS: Amiodarone 200 MG TAB 400 MG PO (19:49)
[2024-12-20] MEDS: Apixaban 5 MG TAB PO (19:49)
[2024-12-20] MEDS: traZODone 50 MG TAB PO (19:49)
[2024-12-20] MEDS: Potassium Chloride 20 MEQ TABCR PO (19:49)
[2024-12-20] MEDS: Normal Saline Flush 10 ML SYR IVP (19:50)
[2024-12-20] MEDS: Magnesium Oxide 400 MG TAB 200 MG PO (19:50)
[2024-12-20] MEDS: Insulin Glargine 300 UNITS/3 ML PEN 40 UNITS SC (21:14)
[2024-12-21] VITALS (61 sets, daily range): BP systolic 70–120; BP diastolic 34–96; PULSE 68–144; RESP 0–44; TEMP 36.2–36.4; O2SAT 88–100
[2024-12-21] MEDS: Metoprolol 5 MG/5 ML VIAL 2.5 MG IVP ×2 (03:00→11:29)
[2024-12-21 06:59] LABS: HCT 40.4 % (36.0-46.0); HGB 13.0 g/dL (11.2-15.7); MCH 29.3 pg (27.0-33.0); MCHC 32.2 % (32.0-36.0); MCV 91 fL (80-95); MPV 12.7 fL (8.0-11.0); Platelet Count 173 10^3/uL (130-400); RBC 4.43 10^6/uL (3.93-5.22); RDW 19.6 % (11.7-14.6); RDW-SD 66.4 fL; WBC 9.64 10^3/uL (4.4-10.8)
[2024-12-21 07:22] LABS: ALT 58 U/L (14-59); AST 42 U/L (15-37); Albumin 2.7 g/dL (3.4-5.0); Alkaline Phosphatase 162 U/L (46-116); Anion Gap 5.9 mmol/L (3-11); BUN 30 mg/dL (7-18); Bilirubin, Total 0.6 mg/dL (0.2-1.0); CO2 33.1 mmol/L (21.0-32.0); Calcium 10.0 mg/dL (8.5-10.1); Chloride 98 mmol/L (98-107); Estimated GFR 51.11 (mL/min/1.73m2); Glucose 114 mg/dL (74-106); Potassium 3.3 mmol/L (3.5-5.1); Sodium 137 mmol/L (136-145); Total Protein 7.1 g/dL (6.4-8.2)
[2024-12-21] MEDS: Normal Saline Flush 10 ML SYR IVP ×3 (07:54→20:04)
[2024-12-21] MEDS: Magnesium Oxide 400 MG TAB 200 MG PO ×2 (07:55→20:05)
[2024-12-21] MEDS: Furosemide 40 MG TAB PO ×2 (07:56→16:35)
[2024-12-21] MEDS: Sucralfate 1 GM TAB PO ×4 (07:56→21:02)
[2024-12-21] MEDS: Apixaban 5 MG TAB PO ×2 (07:56→20:05)
[2024-12-21] MEDS: Potassium Chloride 20 MEQ TABCR PO ×2 (07:56→20:05)
[2024-12-21] MEDS: Amiodarone 200 MG TAB 400 MG PO ×2 (07:56→20:06)
[2024-12-21] MEDS: Insulin Glargine 300 UNITS/3 ML PEN 40 UNITS SC ×2 (08:05→21:03)
[2024-12-21] MEDS: Insulin Aspart 300 UNITS/3 ML PEN SC ×5 (08:10→16:38)
[2024-12-21] MEDS: Metoprolol CR 100 MG TABCR 200 MG PO (08:23)
[2024-12-21] MEDS: Famotidine 20 MG TAB PO (08:24)
[2024-12-21] MEDS: Atorvastatin 40 MG TAB 80 MG PO (08:24)
[2024-12-21] MEDS: Multivitamin TAB 1 TAB PO (08:24)
[2024-12-21] MEDS: Venlafaxine 150 MG CAPCR PO (08:24)
[2024-12-21] MEDS: Tiotropium/Olodaterol 10 PUFF INHALER 2 PUFF IH (08:25)
[2024-12-21] MEDS: Empaglifozin 10 MG TAB PO (08:25)
[2024-12-21 09:42] LABS: Magnesium 1.7 mg/dL (1.8-2.4)
--- NOTE | 2024-12-21 11:09 | PGE_ITS ---
Date of Service Date of service: 12/21/24 Time of Service: 11:09 Assessment and Plan Assessment and plan (1) Atrial fibrillation with RVR: Status: Acute Assessment and plan: -started on dilt drip on admission, now changed to PO amio and lopressor as per Cardiology consult recs -amio 400mg for 2 weeks followed by 200mg BID for 4 weeks, then 200mg daily -She had been offered AV node ablation at at [facility], she has pacemaker, could consider if other options fail and this is c/w her goals of care. -required 2,5mg IV lopressor overnight 12/20 and AM 12/21 -Continue apixaban (2) Heart failure with reduced ejection fraction: Status: Acute Assessment and plan: -BNP up but does not appear fluid overloaded -POCUS showed LVEF simliar to 25% seen recently, which is a downtrend -She is on beta yue and SGLT2i (3) Elevated troponin level not due myocardial infarction: Status: Acute Assessment and plan: -type II secondary to tachyarrythmia as noted above -EKG without signs of ACS (4) Chronic hypoxic respiratory failure, on home oxygen therapy: Status: Acute Assessment and plan: -Related to chronic CHF, at baseline oxygen requirement (5) Dementia: Status: Chronic Assessment and plan: -This does seem to be progressing, likely severe at this point (6) Class 3 obesity: Assessment and plan: -chronic issue, did not tolerate semaglutide. (7) Decubitus ulcer of sacral region: Status: Acute Assessment and plan: -present on admission -offload, wound care. (8) CKD (chronic kidney disease) stage 3, GFR 30-59 ml/min: Assessment and plan: -Near baseline, follow -on SGLT2i (9) Elevated transaminase level: Status: Acute Assessment and plan: -likely secondary to CHF (10) NATHAN (obstructive sleep apnea): Status: Chronic Assessment and plan: -it appears she isn't treated chronically with CPAP/BiPAP Subjective Subjective Interval history since last seen: Patient states that she is doing well today and has no complaints or concerns at this time. Exam Narrative Exam Narrative: well appearing older female sitting up in the bed in no acute distress, awake, alert, oriented to person, place and situation, heart irregularly irregular with rates ~120bpm, lungs CTAB, abdomen soft, non-tender, non-distended Objective Last Vital Signs Temp 97.2 F L 12/21/24 07:45 Pulse 125 H 12/21/24 09:01 Resp 16 12/21/24 09:01 BP 102/60 12/21/24 09:01 Pulse Ox 96 12/21/24 09:10 Laboratory Results - last 24 hr 12/20/24 12/20/24 12/20/24 13:05 13:30 14:52 WBC 11.06 H RBC 4.91 Hgb 14.6 Hct 45.6 MCV 93 MCH 29.7 MCHC 32.0 RDW 20.3 H Plt Count 204 MPV 13.0 H Immature Gran % 0.5 Neutrophils % 67.3 Lymphocytes % 18.6 Monocytes % 9.0 Eosinophils % 3.8 Basophils % 0.8 Nucleated RBC % 0.0 Absolute Neutrophils 7.44 H Absolute Lymphocytes 2.06 Absolute Monocytes 1.00 H Absolute Eosinophils 0.42 Absolute Basophils 0.09 RBC Morphology See Below Poikilocytosis 2+ Anisocytosis 2+ PT 12.0 H INR 1.2 H APTT 27.1 Sodium Cancelled 132 L Potassium Cancelled 4.0 Chloride Cancelled 93 L Carbon Dioxide Cancelled 30.2 Anion Gap Cancelled 8.8 BUN Cancelled 35 H Creatinine Cancelled 1.4 H Est GFR (CKD-EPI 2020) Cancelled 38.27 Glucose Cancelled 405 H Calcium Cancelled 9.8 Magnesium Total Bilirubin Cancelled 0.7 AST Cancelled 50 H ALT Cancelled 67 H Alkaline Phosphatase Cancelled 177 H Troponin I Cancelled 57 H* 55 H* NT-Pro-B Natriuret Pep Cancelled 7927 H Total Protein Cancelled 7.4 Albumin Cancelled 2.7 L TSH Cancelled 4.05 H Free T4 1.18 MRSA (TEM-PCR) 12/20/24 12/20/24 12/21/24 16:10 16:55 05:44 WBC 9.64 RBC 4.43 Hgb 13.0 Hct 40.4 MCV 91 MCH 29.3 MCHC 32.2 RDW 19.6 H Plt Count 173 MPV 12.7 H Immature Gran % Neutrophils % Lymphocytes % Monocytes % Eosinophils % Basophils % Nucleated RBC % Absolute Neutrophils Absolute Lymphocytes Absolute Monocytes Absolute Eosinophils Absolute Basophils RBC Morphology Poikilocytosis Anisocytosis PT INR APTT Sodium 137 Potassium 3.3 L Chloride 98 Carbon Dioxide 33.1 H Anion Gap 5.9 BUN 30 H Creatinine 1.1 H Est GFR (CKD-EPI 2020) 51.11 Glucose 114 H Calcium 10.0 Magnesium 1.7 L Total Bilirubin 0.6 AST 42 H ALT 58 Alkaline Phosphatase 162 H Troponin I 46 NT-Pro-B Natriuret Pep Total Protein 7.1 Albumin 2.7 L TSH Free T4 MRSA (TEM-PCR) Positive A Time Spent with Patient Time Spent with Patient: >50 minutes Time was spent: preparing to see the patient(eg.review tests), obtaining and/or reviewing separately otained hiistory, ordering medications,tests, procedures, referring, communicating with other health child day care provider, indepentently interpreting results, counseling the patient and care coordination
--- NOTE | 2024-12-21 14:31 | PDOC.CMIN ---
Date of service: 12/21/24 Time of Service: 14:31 Care Management Initial Assmt Initial Assessment Reason for Hospitalization: afib with RVR Functional Status/Living Situation Patient Presentation: Jessa had an appointment with Dr. Tompkins, cardiology yesterday. She was found to be in afib with an uncontrolled heart rate. She was brought to the ER. She was started on a diliazem drip and amiodarone was started PO. She was admitted to the ICU. Jessa was sitting up in bed when CM met with her today. She is well known to , and offered a big smile when we met. Jessa stated that she is feeling ok. She was surprised when stated that she is in the hospital I'm in the hospital?. She did seem to understand that her heart is beating too fast, and we need to slow it down. She has had this problem in the past. Jessa lives at [facility] and she stated that she likes it there. 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) Instrumental Activities of Daily Living (ADLs): Requires support Medications Medication Management: No Issues/Barriers identified (receives her meds from [facility]) Physical Functioning/Mobility Assistive Device: mainly wheelchair bound, can stand to pivot Advance Directives Advance Directives: Do you have an Advance Directive: N 12/20/24, 16:47 AD On File at [facility]: N 03/21/24, 10:05 Date Asked 12/20/24 12/20/24, 16:47 AD Date Reviewed COLST On File at [facility] Yes 12/20/24, 16:47 COLST Date Scanned Code Status Resuscitation Status DNR/DNI Insurance Coverage/Financial Issues Insurance: Medicare Part A & B -? Care Team Visit Care Team Role Provider Type Sky Odell MD MD [facility] STAFF PHYSICIAN Kev Teran Primary Care Provider NON-[facility] STAFF PHYSICIAN Gama Holliday DO Emergency Provider [facility] STAFF PHYSICIAN Chi Raser Admit Provider [facility] STAFF PHYSICIAN Attending Provider Discharge Potential Discharge Needs: Other (facility provider f/u) Anticipated Barriers to Discharge: None Identified Patient/Family Education Needs: Review discharge instructions, discuss Ask Me Three Transportation: EMS Plan: Jessa is currently being monitored in the ICU. She will return to [facility] Living via EMS once she is medically stable and f/u with the facility provider. CM will continue to follow. Social Determinants of Health Screening Will the Patient Participate in the Screening?: Unable to obtain PFSH All Active Problems (Updated 12/20/24 @ 18:30 by Chi Solitario) Elevated troponin level not due myocardial infarction (Acute) Elevated transaminase level (Acute) Hyponatremia (Acute) Heart failure with reduced ejection fraction (Acute) Atrial fibrillation with RVR (Acute) NATHAN (obstructive sleep apnea) (Chronic) Atrial fibrillation (Chronic) Dementia (Chronic) Cognitive change (Acute) Lives in fdc (Acute) Deficit in activities of daily living (ADL) (Acute) Chronic hypoxic respiratory failure, on home oxygen therapy (Acute) Congestive heart failure (Chronic) Need for home health care (Acute) ACP (advance care planning) (Acute) Decubitus ulcer of sacral region (Acute) Yeast infection of the skin (Acute) Respiratory failure (Acute) Asthma (Chronic) Medical History Urinary retention Heart failure with mildly reduced ejection fraction (HFmrEF) Bacterial UTI Hypomagnesemia Hypomagnesemia Palliative care encounter Hypokalemia Elevated BUN Atrial fibrillation with rapid ventricular response COPD (chronic obstructive pulmonary disease) Class 3 obesity Chronic respiratory failure with hypercapnia CKD (chronic kidney disease) stage 3, GFR 30-59 ml/min Atrial fibrillation Loose left total knee arthroplasty Type 2 diabetes mellitus without complications HTN (hypertension) Contusion of toe, left Dermal mycosis Thyroid nodule Diabetic peripheral neuropathy Vitamin D deficiency Hyperparathyroidism HLD (hyperlipidemia) Anemia Leukocytosis Depressive disorder GERD (gastroesophageal reflux disease) Cellulitis Stress incontinence Diabetes 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 Readmission Within the Past 30 Days Yes or No: Yes Date of First Admission Date of 1st Admission: 12/05/24 Date of this Admission Date of Admission: 12/20/24 This admission was: Through ED Office Visit Since 1st Admission Have you seen your PCP in the office since discharge?: Yes Speicalist Appointments Have you seen any other specialist since your 1st Admission?: Yes Date you saw the Specialist: 12/20/24 Specialist Seen: cardiology If the patient came from Ext. Facility Call the Facility to discuss the patient's admission: Jessa was receiving her medications regularly, had no c/o. ED visits How many ED visits in the past 12 months: 9 Assessment for Readmission Summary of readmission circumstances, based upon interviews: It is believed that Jessa's heart is failing, she has chronic CHF, reduced ejection fraction
[2024-12-21 16:23] LABS: Glucose >=1000 mg/dL (Negative)
[2024-12-21 16:38] LABS: C & S Indicated? Yes; WBC >50 HPF (0-5)
[2024-12-21] MEDS: traZODone 50 MG TAB PO (20:05)
[2024-12-21] MEDS: Bimatoprost 0.01% 2.5 ML BTL OP (20:05)
[2024-12-22] VITALS (33 sets, daily range): BP systolic 77–131; BP diastolic 50–105; PULSE 94–128; RESP 9–28; TEMP 36.1–36.7; O2SAT 86–98
[2024-12-22 00:09] LABS: Lab Add On Test DONE
[2024-12-22 06:56] LABS: Anion Gap 5.7 mmol/L (3-11); BUN 30 mg/dL (7-18); CO2 29.3 mmol/L (21.0-32.0); Calcium 9.6 mg/dL (8.5-10.1); Chloride 101 mmol/L (98-107); Estimated GFR 57.31 (mL/min/1.73m2); Glucose 107 mg/dL (74-106); Potassium 3.6 mmol/L (3.5-5.1); Sodium 136 mmol/L (136-145)
[2024-12-22 07:01] LABS: HCT 41.6 % (36.0-46.0); HGB 13.5 g/dL (11.2-15.7); MCH 30.4 pg (27.0-33.0); MCHC 32.5 % (32.0-36.0); MCV 94 fL (80-95); Platelet Count 182 10^3/uL (130-400); RBC 4.44 10^6/uL (3.93-5.22); RDW 19.9 % (11.7-14.6); RDW-SD 68.1 fL; WBC 8.93 10^3/uL (4.4-10.8)
[2024-12-22] MEDS: Tiotropium/Olodaterol 10 PUFF INHALER 2 PUFF IH (08:33)
[2024-12-22] MEDS: Normal Saline Flush 10 ML SYR IVP ×2 (08:39→19:19)
[2024-12-22] MEDS: Insulin Aspart 300 UNITS/3 ML PEN SC ×5 (08:40→16:54)
[2024-12-22] MEDS: Atorvastatin 40 MG TAB 80 MG PO (08:42)
[2024-12-22] MEDS: Metoprolol CR 100 MG TABCR 200 MG PO (08:44)
[2024-12-22] MEDS: Magnesium Oxide 400 MG TAB 200 MG PO ×2 (08:46→19:20)
[2024-12-22] MEDS: Sucralfate 1 GM TAB PO ×4 (08:46→21:05)
[2024-12-22] MEDS: Apixaban 5 MG TAB PO ×2 (08:49→19:20)
[2024-12-22] MEDS: Amiodarone 200 MG TAB 400 MG PO ×2 (08:49→19:19)
[2024-12-22] MEDS: Potassium Chloride 20 MEQ TABCR PO ×2 (08:50→19:20)
[2024-12-22] MEDS: Famotidine 20 MG TAB PO (08:50)
[2024-12-22] MEDS: Furosemide 40 MG TAB PO ×2 (08:50→15:42)
[2024-12-22] MEDS: Venlafaxine 150 MG CAPCR PO (08:50)
[2024-12-22] MEDS: Multivitamin TAB 1 TAB PO (08:50)
[2024-12-22] MEDS: Empaglifozin 10 MG TAB PO (08:50)
--- NOTE | 2024-12-22 11:00 | W.PM.PROGNOT ---
Date of Service Date of service: 12/22/24 Time of Service: 11:00 Assessment and Plan Assessment and plan (1) Atrial fibrillation with RVR: Status: Acute Assessment and plan: -started on dilt drip on admission, now changed to PO amio and lopressor as per Cardiology consult recs -amio 400mg for 2 weeks followed by 200mg BID for 4 weeks, then 200mg daily -She had been offered AV node ablation at at [facility], she has pacemaker, could consider if other options fail and this is c/w her goals of care. -required 2,5mg IV lopressor overnight 12/20 and AM 12/21, but has not needed any since -Continue apixaban (2) Heart failure with reduced ejection fraction: Status: Acute Assessment and plan: -BNP up but does not appear fluid overloaded -POCUS showed LVEF simliar to 25% seen recently, which is a downtrend -She is on beta yue and SGLT2i (3) Elevated troponin level not due myocardial infarction: Status: Acute Assessment and plan: -type II secondary to tachyarrythmia as noted above -EKG without signs of ACS (4) Chronic hypoxic respiratory failure, on home oxygen therapy: Status: Acute Assessment and plan: -Related to chronic CHF, at baseline oxygen requirement (5) Dementia: Status: Chronic Assessment and plan: -This does seem to be progressing, likely severe at this point (6) Class 3 obesity: Assessment and plan: -chronic issue, did not tolerate semaglutide. (7) Decubitus ulcer of sacral region: Status: Acute Assessment and plan: -present on admission -offload, wound care. (8) CKD (chronic kidney disease) stage 3, GFR 30-59 ml/min: Assessment and plan: -Near baseline, follow -on SGLT2i (9) Elevated transaminase level: Status: Acute Assessment and plan: -likely secondary to CHF (10) NATHAN (obstructive sleep apnea): Status: Chronic Assessment and plan: -it appears she isn't treated chronically with CPAP/BiPAP Subjective Subjective Interval history since last seen: Patient states that she is doing well and understands that we are continuing to work on improving her HR. Exam Narrative Exam Narrative: well appearing older female sitting up in the bed in no acute distress, awake, alert, oriented to person, place and situation, heart irregularly irregular with rates 100-120bpm, lungs CTAB, abdomen soft, non-tender, non-distended Objective Last Vital Signs Temp 97.0 F L 12/22/24 05:10 Pulse 122 H 12/22/24 06:01 Resp 19 12/22/24 06:01 BP 84/60 L 12/22/24 06:01 Pulse Ox 95 12/22/24 08:33 Laboratory Results - last 24 hr 12/21/24 12/21/24 12/22/24 05:44 15:40 06:06 WBC 8.93 RBC 4.44 Hgb 13.5 Hct 41.6 MCV 94 MCH 30.4 MCHC 32.5 RDW 19.9 H Plt Count 182 MPV Sodium 136 Potassium 3.6 Chloride 101 Carbon Dioxide 29.3 Anion Gap 5.7 BUN 30 H Creatinine 1.0 Est GFR (CKD-EPI 2020) 57.31 Glucose 107 H Calcium 9.6 Urine Color Yellow Urine Clarity Clear Urine pH 5.5 Ur Specific [place] <= 1.005 Urine Protein Negative Urine Ketones Negative Urine Blood Small H Urine Nitrite Negative Urine Bilirubin Negative Urine Urobilinogen 0.2 Ur Leukocyte Esterase Small H Urine RBC Not Applicable Urine WBC >50 H Ur Epithelial Cells Not Applicable Urine Crystals Not Applicable Urine Bacteria Not Applicable Urine Mucus Not Applicable Ur Culture Indicated? Yes Urine Glucose >=1000 H Add-On Test Request DONE Time Spent with Patient Time Spent with Patient: >50 minutes Time was spent: preparing to see the patient(eg.review tests), obtaining and/or reviewing separately otained hiistory, ordering medications,tests, procedures, referring, communicating with other health intensive care unit nurse, indepentently interpreting results, counseling the patient and care coordination
[2024-12-22] MEDS: traZODone 50 MG TAB PO (19:20)
[2024-12-22] MEDS: Bimatoprost 0.01% 2.5 ML BTL OP (19:20)
[2024-12-22] MEDS: Insulin Glargine 300 UNITS/3 ML PEN 40 UNITS SC (19:25)
[2024-12-22] MEDS: cefTRIAXone 1 GM/50 ML BAG IVPB (21:05)
[2024-12-23] VITALS (14 sets, daily range): BP systolic 90–108; BP diastolic 49–68; PULSE 60–113; RESP 8–26; O2SAT 93–98
[2024-12-23] MEDS: Tiotropium/Olodaterol 10 PUFF INHALER 2 PUFF IH (07:27)
[2024-12-23] MEDS: Multivitamin TAB 1 TAB PO (08:02)
[2024-12-23] MEDS: Magnesium Oxide 400 MG TAB 200 MG PO (08:02)
[2024-12-23] MEDS: Venlafaxine 150 MG CAPCR PO (08:02)
[2024-12-23] MEDS: Potassium Chloride 20 MEQ TABCR PO (08:02)
[2024-12-23] MEDS: Famotidine 20 MG TAB PO (08:02)
[2024-12-23] MEDS: Sucralfate 1 GM TAB PO (08:02)
[2024-12-23] MEDS: Apixaban 5 MG TAB PO (08:02)
[2024-12-23] MEDS: Atorvastatin 40 MG TAB 80 MG PO (08:02)
[2024-12-23] MEDS: Normal Saline Flush 10 ML SYR IVP (08:02)
[2024-12-23] MEDS: Empaglifozin 10 MG TAB PO (08:02)
[2024-12-23] MEDS: Insulin Aspart 300 UNITS/3 ML PEN SC (08:03)
[2024-12-23] MEDS: Furosemide 40 MG TAB PO (08:15)
[2024-12-23] MEDS: Metoprolol CR 100 MG TABCR 200 MG PO (08:15)
[2024-12-23] MEDS: Amiodarone 200 MG TAB 400 MG PO (08:15)
[2024-12-23] MEDS: cefTRIAXone 1 GM/50 ML BAG IVPB (08:30)
--- NOTE | 2024-12-23 08:50 | CMDISCH_ITS ---
Date of service: 12/23/24 Time of Service: 08:50 LACE Index Scoring Tool Questions: Length of Stay (in days): 3 Was the patient admitted via the E.D.?: Yes Comorbidities: Diabetes w/o Complication, Congestive Heart Failure, Dementia and Liver or Renal Disease E.D. Visits: 6 Answers: Total Score: 15 Risk of Readmission: High Risk Care Management Discharge Plan Reason for Hospitalization: afib with RVR Discharge Plan: Jessa will return to [facility] for Living today. She will f/u with the facility provider and continue per her plan of care. Jessa will transport via [facility] as coordinated by CM. Patient/Family Education Needs: Review of discharge instructions, activity, limitations, and discuss Ask me 3. SDOH Health Related Social Needs: Health related social needs risk of homeless education
--- NOTE | 2024-12-23 09:32 | DSE_ITS ---
Date of service: 12/23/24 Time of Service: 09:32 DS: Diagnosis Discharge Diagnosis (1) Atrial fibrillation with RVR: Status: Acute (2) Heart failure with reduced ejection fraction: Status: Acute (3) Elevated troponin level not due myocardial infarction: Status: Acute (4) Chronic hypoxic respiratory failure, on home oxygen therapy: Status: Acute (5) Dementia: Status: Chronic (6) Class 3 obesity: (7) Decubitus ulcer of sacral region: Status: Acute (8) CKD (chronic kidney disease) stage 3, GFR 30-59 ml/min: (9) Elevated transaminase level: Status: Acute (10) NATHAN (obstructive sleep apnea): Status: Chronic Discharge Plan Disposition Patient Disposition: Retirement Facility(SNF) Condition: Good Discharge Details Reason For Visit: Atrial fibrillation with RVR Admit Date/Time: 12/20/24 15:53 Admit Provider: Chi Solitario Attending Provider: Chi Solitario Primary Care Provider: Kev Teran Hospital Course Hospital Course: Patient presented again with another episode of A-fib with RVR. On admission cardiology was consulted and they recommended initiating amiodarone. Patient was initially placed on amiodarone drip but had low blood pressure and recommendation was to change to p.o. loading dose. Patient tolerated this well in combination with p.o. Lopressor and ultimately converted back to normal sinus rhythm late evening 12/22/2024. Given that patient's heart rate is now well- controlled in the 70s and tolerating amiodarone Lopressor was determined that she was stable for discharge. Home Meds and New Rx's Prescriptions: New amiodarone [Pacerone] 200 mg Tablet 400 mg PO BID Qty: 120 0RF Rx Instructions: 400mg BID until 12/26, then 200mg BID for 4 weeks, then 200mg daily Continued venlafaxine 150 mg capsule,extended release 24hr 150 mg PO DAILY sucralfate 1 gram tablet 1 g PO AC & HS atorvastatin 80 mg tablet 80 mg PO DAILY Eliquis 5 mg tablet 5 mg PO BID famotidine 20 mg tablet 20 mg PO DAILY trazodone 50 mg tablet 50 mg PO HS furosemide 40 mg tablet 40 mg PO BID Qty: 0 0RF insulin aspart U-100 [Novolog FlexPen U-100 Insulin] 100 unit/mL (3 mL) insulin pen 5 unit SUBCUT TID Lumigan 0.01 % drops 1 drp ophthalmic (eye) QPM multivitamin [Daily Multi-Vitamin] Tablet 1 tab PO DAILY Stiolto Respimat 2.5-2.5 mcg/actuation mist 2 inh inhalation DAILY Jardiance 10 mg Tablet 10 mg PO QAM Qty: 90 0RF magnesium 200 mg tablet 200 mg PO BID potassium chloride 20 mEq tablet,ER particles/crystals 20 meq PO BID acetaminophen 325 mg Tablet 650 mg PO QID PRN PRNQty: 30 0RF docusate sodium [Colace] 100 mg Capsule 100 mg PO TID PRN PRNQty: 90 0RF insulin glargine [Lantus Solostar U-100 Insulin] 100 unit/mL (3 mL) Insulin Pen 40 unit SC QPM Qty: 3 0RF metoprolol succinate 200 mg tablet extended release 24 hr 200 mg PO DAILY Qty: 30 0RF Discontinued diltiazem HCl 30 mg Tablet 60 mg PO BID Qty: 90 0RF ciprofloxacin HCl 500 mg tablet 500 mg PO BID Rx Instructions: For e-coli UTI- started 12/03/24; take for 7 days cefpodoxime 200 mg Tablet 100 mg PO BID Qty: 3 0RF Discharge Instructions Activity:: Activity as Tolerated Equipment/Supplies:: No Equipment Needed Diet:: As Tolerated Discharge Orders Discharge Orders: Discharge Order (Routine); Ordered 12/23/24 Ordered By: Sky Odell DS: Summary Time Spent with Patient providing and/or coordinating discharge services: Greater than 30 minutes Status at Discharge Functional status at discharge: independent ambulation Overall status at discharge: patient is back to baseline Mental Status: mental status grossly normal Speech and Movement: speech and movement normal Mood: congruent mood Affect: normal affect Quality:SDOH Health Related Social Needs: Health related social needs risk of homeless education Exam Narrative Exam Narrative: well appearing older female sitting up in the bed in no acute distress, awake, alert, oriented to person, place and situation, heart RRR, lungs CTAB, abdomen soft, non-tender, non-distended Psych Mental Status: mental status grossly normal Speech and Movement: speech and movement normal Mood: congruent mood Affect: normal affect DS: Data Vitals/I&O Vitals and I&O: Vital Signs Temperature 98.1 F 12/22/24 19:30 Temperature Source Temporal Artery Scan 12/22/24 19:30 Pulse 60 12/23/24 08:01 Pulse 60 12/23/24 08:01 Respiratory Rate 20 12/23/24 08:01 Respiratory Effort Normal, Non-Labored 12/20/24 15:55 Respiratory Depth Normal 12/20/24 15:55 Respiratory Pattern Normal 12/20/24 15:55 Blood Pressure 105/49 L 12/23/24 08:01 Blood Pressure Mean 67 12/23/24 08:01 Pulse Oximetry 94 12/23/24 08:01 Oxygen Delivery Method Room Air 12/22/24 08:33 Oxygen Flow Rate 0 12/22/24 08:33 Pain Level 0 12/21/24 19:30 Comment palm facing up instead of down 12/22/24 14:08 Intake & Output 12/22/24 12/23/24 12/23/24 17:59 05:59 17:59 Intake Total 760 / 760 270 / 1030 621.667 / 621.667 Output Total 725 / 725 1000 / 1725 Balance 35 / 35 -730 / -695 621.667 / 621.667 Weight 188 lb 4.396 oz Intake: IV 70 / 70 1.667 / 1.667 Oral 760 / 760 200 / 960 620 / 620 Output: Urine 725 / 725 1000 / 1725 Other: Urine Color Yellow Yellow Urine Appearance Clear Cloudy Comment Changed at this time. Stool Size Moderate Moderate Stool Characteristics Soft Soft Brown Data Completed and Pending Labs on day of discharge: Preliminary micro results at discharge 12/21/24 15:40 Urine - Reflex from Ua Urine Culture - Preliminary Gram positive allyssa Gram negative nirmala PFSH All Active Problems (Updated 12/20/24 @ 18:30 by Chi Solitario) Elevated troponin level not due myocardial infarction (Acute) Elevated transaminase level (Acute) Hyponatremia (Acute) Heart failure with reduced ejection fraction (Acute) Atrial fibrillation with RVR (Acute) NATHAN (obstructive sleep apnea) (Chronic) Atrial fibrillation (Chronic) Dementia (Chronic) Cognitive change (Acute) Lives in detention (Acute) Deficit in activities of daily living (ADL) (Acute) Chronic hypoxic respiratory failure, on home oxygen therapy (Acute) Congestive heart failure (Chronic) Need for home health care (Acute) ACP (advance care planning) (Acute) Decubitus ulcer of sacral region (Acute) Yeast infection of the skin (Acute) Respiratory failure (Acute) Asthma (Chronic) Medical History Urinary retention Heart failure with mildly reduced ejection fraction (HFmrEF) Bacterial UTI Hypomagnesemia Hypomagnesemia Palliative care encounter Hypokalemia Elevated BUN Atrial fibrillation with rapid ventricular response COPD (chronic obstructive pulmonary disease) Class 3 obesity Chronic respiratory failure with hypercapnia CKD (chronic kidney disease) stage 3, GFR 30-59 ml/min Atrial fibrillation Loose left total knee arthroplasty Type 2 diabetes mellitus without complications HTN (hypertension) Contusion of toe, left Dermal mycosis Thyroid nodule Diabetic peripheral neuropathy Vitamin D deficiency Hyperparathyroidism HLD (hyperlipidemia) Anemia Leukocytosis Depressive disorder GERD (gastroesophageal reflux disease) Cellulitis Stress incontinence Diabetes Cardiac pacemaker in situ placed 04/22/2022 in [place]. 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 Family History Father Bone cancer Mother Myocardial infarction Brother Myocardial infarction Social History Smoking/Tobacco Use Status: Former Tobacco Use Smoking risk assessment performed?: Yes Alcohol Intake: never Drug use: Never Substance use type: does not use Housing: detention Do you feel safe at home: Yes Do you feel safe in your relationship?: Yes Additional Social history: at [facility] Time Spent with Patient Time Spent with Patient: <45 minutes Time was spent: preparing to see the patient(eg.review tests), obtaining and/or reviewing separately otained hiistory, ordering medications,tests, procedures, referring, communicating with other health senior care manager, indepentently interpreting results, counseling the patient and care coordination
== END 2024-12-23 11:05 | disposition skilled nursing facility (03) | DRG 309 ==
LOC: ER 16:52 → ICU 17:27
PROVIDERS: Admitting Provider Family Medicine; Emergency Provider Student in an Organized Health Care Education/Training Program; PCP Family Medicine; Responsible Provider Family Medicine; Visit Provider Family Medicine
DX: J96.11 Chronic respiratory failure with hypoxia; Z99.81 Dependence on supplemental oxygen; E66.813 Obesity, class 3; Z68.36 Body mass index [BMI] 36.0-36.9, adult; L89.152 Pressure ulcer of sacral region, stage 2; E87.1 Hypo-osmolality and hyponatremia; R74.01 Elevation of levels of liver transaminase levels; G47.33 Obstructive sleep apnea (adult) (pediatric); I48.21 Permanent atrial fibrillation; I13.0 Hypertensive heart and chronic kidney disease with heart failure and stage 1 through stage 4 chronic kidney disease, or unspecified chronic kidney disease; Z59.811 Housing instability, housed, with risk of homelessness; I50.22 Chronic systolic (congestive) heart failure; Z95.0 Presence of cardiac pacemaker; R74.8 Abnormal levels of other serum enzymes; F03.C0 Unspecified dementia, severe, without behavioral disturbance, psychotic disturbance, mood disturbance, and anxiety; Z79.01 Long term (current) use of anticoagulants; Z79.899 Other long term (current) drug therapy; J44.9 Chronic obstructive pulmonary disease, unspecified; E11.22 Type 2 diabetes mellitus with diabetic chronic kidney disease; Z73.89 Other problems related to life management difficulty; N18.30 Chronic kidney disease, stage 3 unspecified; E11.42 Type 2 diabetes mellitus with diabetic polyneuropathy; E21.3 Hyperparathyroidism, unspecified; E78.5 Hyperlipidemia, unspecified; D64.9 Anemia, unspecified; F32.A Depression, unspecified; K21.9 Gastro-esophageal reflux disease without esophagitis; N39.3 Stress incontinence (female) (male); F41.9 Anxiety disorder, unspecified; Z95.3 Presence of xenogenic heart valve; Z95.1 Presence of aortocoronary bypass graft; Z87.891 Personal history of nicotine dependence; Z79.4 Long term (current) use of insulin; Z66 Do not resuscitate
CPT/HCPCS: 00123; 36415; 80048; 80053; 85027; 87077; 87641; 93005; 93308; 94640; 94761; 96365; 96366; 96376; 99214; 99291; 71045; 81003; 81015; 83735; 83880; 84439; 84443; 84484; 85025; 85610; 85730; 87086; 87186; 93010; 94664; 94760; 99223; 99233; 99238; J0696; J1815

== ENCOUNTER 2024-12-25 15:08 | Outpatient (REF) | payer MEDICARE, SELFPAY ==
[2024-12-25 18:48] LABS: Glucose >=1000 mg/dL (Negative)
[2024-12-25 18:57] LABS: RBC 20-50 HPF (0-2); WBC >50 HPF (0-5)
== END 2024-12-25 15:09 | disposition home or self-care (01) ==
LOC: LBN 15:08
PROVIDERS: PCP Family Medicine; Visit Provider Nurse Practitioner Adult Health
DX: N39.0 Urinary tract infection, site not specified (principal)
CPT/HCPCS: 81003; 81015; 87086

== ENCOUNTER 2025-03-14 14:39 | Outpatient (REF) | payer MEDICARE, SELFPAY ==
[2025-03-14 18:11] LABS: Abs Immature Grans 0.05 10^3/uL (0.0-0.06); HCT 40.8 % (36.0-46.0); HGB 13.0 g/dL (11.2-15.7); Immature Grans % 0.5 %; MCH 30.9 pg (27.0-33.0); MCHC 31.9 % (32.0-36.0); MCV 97 fL (80-95); Platelet Count 231 10^3/uL (130-400); RBC 4.21 10^6/uL (3.93-5.22); RDW 15.5 % (11.7-14.6); RDW-SD 55.0 fL; WBC 9.64 10^3/uL (4.4-10.8)
[2025-03-14 18:42] LABS: Magnesium 1.7 mg/dL (1.6-2.6)
[2025-03-14 18:53] LABS: ALT 21 U/L (10-49); AST 21 U/L (<34); Albumin 3.1 g/dL (3.2-5.0); Alkaline Phosphatase 125 U/L (46-116); Anion Gap 9.9 mmol/L (3-11); BUN 29 mg/dL (9-23); Bilirubin, Total 0.6 mg/dL (0.2-1.2); CO2 25.1 mmol/L (20.0-31.0); Calcium 9.1 mg/dL (8.3-10.6); Chloride 102 mmol/L (98-107); Glucose 376 mg/dL (74-106); Potassium 3.9 mmol/L (3.5-5.1); Sodium 137 mmol/L (136-145); Total Protein 6.7 g/dL (5.7-8.2)
== END 2025-03-14 14:40 | disposition home or self-care (01) ==
LOC: LBN 14:39
PROVIDERS: PCP Family Medicine; Visit Provider Nurse Practitioner Adult Health
DX: I50.33 Acute on chronic diastolic (congestive) heart failure (principal)
CPT/HCPCS: 80053; 83735; 85025

== ENCOUNTER 2025-03-15 14:36 | Outpatient (REF) | payer MEDICARE, SELFPAY ==
[2025-03-15 14:51] LABS: Glucose 500 mg/dL (Negative)
[2025-03-15 15:00] LABS: WBC >50 HPF (0-5)
== END 2025-03-15 14:37 | disposition home or self-care (01) ==
LOC: LBN 14:36
PROVIDERS: PCP Family Medicine; Visit Provider Nurse Practitioner Adult Health
DX: N18.32 Chronic kidney disease, stage 3b (principal)
CPT/HCPCS: 81003; 81015; 87086